=== PATIENT | male | born 1970 | race Caucasian/White ===

== ENCOUNTER 2017-11-17 02:51 | Inpatient (IN) | payer MEDICAID, OTHER ==
[2017-11-17 02:59] VITALS: BMI 21.9
[2017-11-17] MEDS ORDERED: Vancomycin 1gm in NS 250ml 1 GM/250 ML BAG IVPB STA (03:10)
[2017-11-17] MEDS ORDERED: Piperacillin/Tazobact 3.375 gm 100 ML IV STA (03:10)
[2017-11-17] MEDS ORDERED: Sodium Chloride 0.9% 1,000 ML IV STA ×2 (03:11→06:17)
--- NOTE | 2017-11-17 03:27 | ED PDOC ---
Arrival/HPI - General Chief Complaint: Finger,Hand,&Wrist Time Seen by Provider: 11/17/17 02:53 Historian: Patient - History of Present Illness Narrative History of Present Illness (Text): 11/17/17 03:21 A 47 year old male, whose past medical history includes IV drug abuse (heroin), presents to the emergency department with a complaint of swelling and erythema to the right hand extending up towards his forearm. The patient notes that he has been experiencing these symptoms for the past 2 days. The patient denies fevers, chills, headache, dizziness, sore throat, cough, chest pain, shortness of breath, dyspnea on exertion, abdominal pain, nausea, vomiting, diarrhea, neck /back pain, urinary/bowel changes or any other complaint. Time/Duration: Prior to Arrival Symptom Onset: Sudden Symptom Course: Unchanged Activities at Onset: Rest, Light Context: Home Past Medical History - Provider Review Nursing Documentation Reviewed: Yes - Hematological/Oncological Hx Blood Disorders: Yes Hx Hepatitis C: Yes - Psychiatric Hx Substance Use: Yes - Anesthesia Hx Anesthesia: No Family/Social History - Physician Review Nursing Documentation Reviewed: Yes Family/Social History: No Known Family HX Smoking Status: Current Some Days Smoker Hx Alcohol Use: Yes Frequency of alcohol use: Daily Hx Substance Use: Yes Substance used: IV heroin Allergies/Home Meds Allergies/Adverse Reactions: Allergies No Known Allergies Allergy (Unverified 11/17/17 03:09) Home Medications: Home Meds Medication Instructions Recorded Confirmed No Known Home Med 11/17/17 11/17/17 Review of Systems - Physician Review All systems were reviewed & negative as marked: Yes - Review of Systems Constitutional: absent: Fevers Respiratory: absent: SOB, Cough Cardiovascular: absent: Chest Pain, GAINES Gastrointestinal: absent: Abdominal Pain, Stool Changes, Diarrhea, Nausea, Vomiting Genitourinary Male: absent: Urinary Output Changes Musculoskeletal: absent: Back Pain, Neck Pain Skin: Other (erythema and swelling to right hand extending towards forearm) Neurological: absent: Headache, Dizziness Physical Exam Vital Signs Reviewed: Yes Vital Signs Temp Pulse Resp BP Pulse Ox 11/17/17 06:30 99 11/17/17 06:01 90 18 114/60 99 11/17/17 03:06 98.9 F 91 H 18 113/64 97 Temperature: Afebrile Blood Pressure: Normal Pulse: Tachycardic Respiratory Rate: Normal Appearance: Positive for: Well-Appearing, Non-Toxic, Comfortable Pain Distress: None Mental Status: Positive for: Alert and Oriented X 3 - Systems Exam Head: Present: Atraumatic, Normocephalic Pupils: Present: PERRL Extroacular Muscles: Present: EOMI Conjunctiva: Present: Normal Mouth: Present: Moist Mucous Membranes Neck: Present: Normal Range of Motion Respiratory/Chest: Present: Clear to Auscultation, Good Air Exchange. No: Respiratory Distress, Accessory Muscle Use Cardiovascular: Present: Regular Rate and Rhythm, Normal S1, S2. No: Murmurs Abdomen: No: Tenderness, Distention, Peritoneal Signs Back: Present: Normal Inspection Upper Extremity: Present: Edema, Normal ROM, NORMAL PULSES, Neurovascularly Intact, Other (Swelling and erythema to right hand with some erythema extending up forearm.). No: Cyanosis Lower Extremity: Present: Normal Inspection. No: Edema Neurological: Present: GCS=15, CN II-XII Intact, Speech Normal, Motor Func Grossly Intact, Normal Sensory Function Skin: Present: Warm, Dry. No: Rashes Psychiatric: Present: Alert, Oriented x 3, Normal Insight, Normal Concentration Medical Decision Making ED Course and Treatment: 11/17/17 03:30 Impression: A 47 year old male presents to the emergency department with complaint of right hand swelling and erythema extending to the forearm. Plan: -- Labs -- Blood Culture -- Toradol, Vancomycin, Zosyn, IV Fluids -- Reassess and disposition Prior Visits: Notes and results from previous visits were reviewed. Progress Notes: 11/17/17 05:10: Case discussed with bilingual medical assistant and Dr. Diaz who accepts patient to the hospitalist's service for further treatment of cellulitis. - Lab Interpretations Lab Results: 11/17/17 03:20 11/17/17 04:20 Lab Results 11/17/17 04:20: Sodium 139, Potassium 3.1 L, Chloride 101, Carbon Dioxide 28, Anion Gap 13, BUN 11, Creatinine 0.5 L, Est GFR ( Amer) > 60, Est GFR ( Non-Af Amer) > 60, Random Glucose 110, Calcium 8.7, Total Bilirubin 0.3, AST 22 , ALT 23, Alkaline Phosphatase 112, Total Protein 7.3, Albumin 3.1, Globulin 4.2 , Albumin/Globulin Ratio 0.7 L 11/17/17 03:20: WBC 22.9 H, RBC 4.27, Hgb 9.8 L, Hct 30.1 L, MCV 70.5 L, MCH 23.0 L, MCHC 32.6, RDW 16.9 H, Plt Count 445, MPV 9.5 I have reviewed the lab results: Yes - Medication Orders Current Medication Orders: Acetaminophen (Tylenol 325mg Tab) 325 mg PO Q4 PRN PRN Reason: Fever >100.4 F Clonidine HCl (Catapres) 0.1 mg PO Q8H PRN PRN Reason: Withdrawal symptoms Cyclobenzaprine HCl (Flexeril) 5 mg PO TID [facility] Last Admin: 11/17/17 19:09 Dose: 5 mg Enoxaparin Sodium (Lovenox) 40 mg SC DAILY KIMBELREE PRN Reason: Protocol Last Admin: 11/17/17 10:16 Dose: 40 mg Subcutaneous Administrations Document 11/17/17 10:16 LMN (Rec: 11/17/17 10:16 LMN [id number]) Injection Site MAR Injection Site Left Arm Charges for Administration # of Subcutaneous Administrations 1 Ferrous Sulfate (Feosol) 324 mg PO BID [facility] Last Admin: 11/17/17 19:09 Dose: 324 mg Piperacillin Sod/Tazobactam Sod (Zosyn 3.375 In Ns 100ml) 100 mls @ 200 mls/hr IV Q8 KIMBERLEE PRN Reason: Protocol Stop: 11/24/17 14:01 Last Admin: 11/17/17 14:53 Dose: 200 mls/hr eMAR Start Stop Document 11/17/17 14:53 LMN (Rec: 11/17/17 14:53 LMN [id number]) Intravenous Solution Start Date 11/17/17 Start Time 14:53 Vancomycin HCl (Vancomycin 1gm) 1 gm in 250 mls @ 133.333 mls/hr IVPB Q12 KIMBERLEE PRN Reason: Protocol Last Admin: 11/17/17 10:16 Dose: 133.333 mls/hr eMAR Start Stop Document 11/17/17 10:16 LMN (Rec: 11/17/17 10:16 LMN [id number]) Intravenous Solution Start Date 11/17/17 Start Time 10:16 Ketorolac Tromethamine (Toradol) 15 mg IVP Q6H PRN PRN Reason: Pain, moderate (4-7) Last Admin: 11/17/17 19:11 Dose: 15 mg MAR Pain Assessment Document 11/17/17 19:11 LMN (Rec: 11/17/17 19:11 LMN [place] [id number]) Pain Reassessment Is this a pain reassessment? No Presence of Pain Presence of Pain Yes Pain Scale Used Pain Scale Used Numeric Location Pain Location Body Site Back IVP Administration Document 11/17/17 19:11 LMN (Rec: 11/17/17 19:11 LMN [place] [id number]) Charges for Administration # of IVP Administrations 1 Re-Assess: MAR Pain Assessment Document 11/17/17 20:11 MAD (Rec: 11/17/17 20:23 MAD [id number] Pain Reassessment Is this a pain reassessment? Yes Presence of Pain Presence of Pain Yes Ketorolac Tromethamine (Toradol) 30 mg IVP Q6H PRN PRN Reason: Pain, severe (8-10) Last Admin: 11/17/17 15:17 Dose: 30 mg MAR Pain Assessment Document 11/17/17 15:17 LMN (Rec: 11/17/17 15:17 LMN [place] [id number]) Pain Reassessment Is this a pain reassessment? No Presence of Pain Presence of Pain Yes Pain Scale Used Pain Scale Used Numeric IVP Administration Document 11/17/17 15:17 LMN (Rec: 11/17/17 15:17 LMN [place] [id number]) Charges for Administration # of IVP Administrations 1 Lidocaine (Lidoderm) 1 ea TD DAILY KIMBERLEE Last Admin: 11/17/17 10:15 Dose: 1 ea MAR Transdermal Patch Site Document 11/17/17 10:15 LMN (Rec: 11/17/17 10:15 LMN [place] [id number]) Transdermal Patch Site Transdermal Patch Site Left Thigh Lorazepam (Ativan) 1 mg IVP ONCE PRN; Protocol PRN Reason: pls give 30mins before MRI Tramadol HCl (Ultram) 50 mg PO ONCE PRN PRN Reason: pls give 30mins before MRI Discontinued Medications Vancomycin HCl (Vancomycin 1gm) 1 gm in 250 mls @ 133.333 mls/hr IVPB STAT STA PRN Reason: Protocol Stop: 11/17/17 05:02 Last Admin: 11/17/17 04:49 Dose: 133.333 mls/hr eMAR Start Stop Document 11/17/17 04:49 SS (Rec: 11/17/17 04:49 SS [id number]) Intravenous Solution Start Date 11/17/17 Start Time 04:49 Piperacillin Sod/Tazobactam Sod (Zosyn 3.375 In Ns 100ml) 100 mls @ 200 mls/hr IV STAT STA PRN Reason: Protocol Stop: 11/17/17 03:39 Last Admin: 11/17/17 03:30 Dose: 200 mls/hr eMAR Start Stop Document 11/17/17 03:30 SS (Rec: 11/17/17 03:30 SS [id number]) Intravenous Solution Start Date 11/17/17 Start Time 03:30 End Date 11/17/17 End time 04:00 Total Infusion Time 30 Sodium Chloride (Sodium Chloride 0.9%) 1,000 mls @ 999 mls/hr IV .Q1H1M STA Stop: 11/17/17 04:11 Last Admin: 11/17/17 03:30 Dose: 999 mls/hr eMAR Start Stop Document 11/17/17 03:30 SS (Rec: 11/17/17 03:30 SS [id number]) Intravenous Solution Start Date 11/17/17 Start Time 03:30 End Date 11/17/17 End time 04:30 Total Infusion Time 60 Vancomycin HCl (Vancomycin 1gm) 1 gm in 250 mls @ 133.333 mls/hr IVPB DAILY KIMBERLEE PRN Reason: Protocol Ketorolac Tromethamine (Toradol) 30 mg IVP ONCE ONE Stop: 11/17/17 03:15 Last Admin: 11/17/17 03:30 Dose: 30 mg MAR Pain Assessment Document 11/17/17 03:30 SS (Rec: 11/17/17 03:30 SS [id number]) Pain Reassessment Is this a pain reassessment? No Presence of Pain Presence of Pain Yes Location Left, Right or Bilateral Right Pain Location Body Site Hand IVP Administration Document 11/17/17 03:30 SS (Rec: 11/17/17 03:30 SS [id number]) Charges for Administration # of IVP Administrations 1 Lorazepam (Ativan) 1 mg PO ONCE ONE PRN Reason: Protocol Stop: 11/17/17 14:34 Last Admin: 11/17/17 14:53 Dose: 1 mg Behavioural Document 11/17/17 14:53 LMN (Rec: 11/17/17 14:53 LMN [id number]) Maintenance Maintenance Dose No Nonmedicinal Nonmedicinal Interventions Redirect Therapeutic Communication Activity Give food/fluids Behavior Behavior for Medication: Anxiety Morphine Sulfate (Morphine) 4 mg IVP STAT STA Stop: 11/17/17 03:41 Last Admin: 11/17/17 04:27 Dose: 4 mg MAR Pain Assessment Document 11/17/17 04:27 SS (Rec: 11/17/17 04:27 SS [id number]) Pain Reassessment Is this a pain reassessment? Yes Sleep Is patient sleeping during reassessment? No Presence of Pain Presence of Pain Yes Pain Scale Used Pain Scale Used Numeric IVP Administration Document 11/17/17 04:27 SS (Rec: 11/17/17 04:27 SS [id number]) Charges for Administration # of IVP Administrations 1 Pneumococcal Polyvalent Vaccine (Pneumovax 23 Vaccine) 0.5 ml IM .ONCE ONE Stop: 11/17/17 08:22 Potassium Chloride (K-Dur 20 Meq Er Tab) 40 meq PO STAT STA Stop: 11/17/17 05:00 Last Admin: 11/17/17 05:18 Dose: 40 meq Potassium Chloride (K-Dur 20 Meq Er Tab) 40 meq PO STAT STA Stop: 11/17/17 06:27 Last Admin: 11/17/17 08:14 Dose: 40 meq - Scribe Statement The provider has reviewed the documentation as recorded by the Juancarlos Salazar Provider Scribe Attestation: All medical record entries made by the Scribmerle were at my direction and personally dictated by me. I have reviewed the chart and agree that the record accurately reflects my personal performance of the history, physical exam, medical decision making, and the department course for this patient. I have also personally directed, reviewed, and agree with the discharge instructions and disposition. Disposition/Present on Arrival - Present on Arrival Any Indicators Present on Arrival: No History of DVT/PE: No History of Uncontrolled Diabetes: No Urinary Catheter: No History of Decub. Ulcer: No History Surgical Site Infection Following: None - Disposition Have Diagnosis and Disposition been Completed?: Yes Diagnosis: Cellulitis of hand Disposition: HOSPITALIZED Disposition Time: 05:09 Patient Problems: Current Active Problems Problem Status Onset Cellulitis of hand Acute Condition: STABLE
[2017-11-17] MEDS ORDERED: Morphine 4 mg/ml ISec IVP STA (03:40)
[2017-11-17 04:46] LABS: ALB/GLOB RATIO 0.7 (1.1-1.8); ALBUMIN 3.1 g/dL (3.0-4.8); ALT/SGPT 23 U/L (7-56); AST/SGOT 22 U/L (17-59); BLOOD UREA NITROGEN 11 mg/dL (7-21); CALCIUM 8.7 mg/dL (8.4-10.5); GFR NON-AFRICAN AMERICAN > 60
[2017-11-17] MEDS ORDERED: Potassium Chloride 20 mEq ER Tab PO STA ×2 (04:59→06:26)
[2017-11-17 05:03] LABS: HEMOGLOBIN 9.8 g/dL (14.0-18.0); MEAN CELL VOLUME 70.5 fl (80.0-105.0); MEAN CORPUSCULAR HGB CONC 32.6 g/dl (31.0-37.0); MEAN PLATELET VOLUME 9.5 fl (7.0-11.0); RBC 4.27 10^6/uL (3.5-6.1); RED CELL DISTRIBUTION WIDTH 16.9 % (11.5-14.5); WHITE BLOOD COUNT 22.9 10^3/ul (4.5-11.0)
--- NOTE | 2017-11-17 05:41 | CP.PCM.HP ---
<Avelino Khan - Last Filed: 11/17/17 06:45> History of Present Illness - History of Present Illness History of Present Illness: Avelino Khan, PGY-1, Internal Medicine History and Physical for Dr. Granados CC: right wrist pain 47 year old with with past medical history of hyperlipidemia and hepatitis C presents with 2 day history of right wrist pain, swelling, redness, and warmth. Patient reports he was sleeping when the throbbing pain started. He reports the pain to be constant and nonradiating. No exacerbating or remitting factors. Patient also reports sharp, stabbing lumbar pain that radiates down his left leg with numbness and tingling. Patient reports no fever, chills, chest pain, heart palpitations, shortness of breath, nausea, vomiting, constipation, diarrhea, dysuria, and hematuria. 12-point ROS was negative except for what was listed above. PMH: as stated above PSH: carpal tunnel Allergies: NKDA FMHx: does not know his parents SHx: smokes 1 ppd for 20 years, 24 cans of beer a day, IV heroin use Denies having a PMD, Pharmacy, and Insurance. Present on Admission - Present on Admission Any Indicators Present on Admission: No History of DVT/PE: No History of Uncontrolled Diabetes: No Review of Systems - Constitutional Constitutional: absent: Anorexia, Chills, Fatigue, Fever - EENT Eyes: absent: Blurred Vision Ears: absent: Decreased Hearing - Cardiovascular Cardiovascular: absent: Chest Pain, Dyspnea on Exertion - Respiratory Respiratory: absent: Cough, Dyspnea - Gastrointestinal Gastrointestinal: absent: Abdominal Pain, Nausea, Vomiting - Genitourinary Genitourinary: absent: Dysuria, Hematuria - Musculoskeletal Musculoskeletal: absent: Abnormal Gait - Neurological Neurological: Abnormal Gait, Numbness, Tingling - Psychiatric Psychiatric: absent: Anxiety, Depression Past Patient History - Past Social History Smoking Status: Current Some Days Smoker - HEMATOLOGICAL/ONCOLOGICAL Hx Blood Disorders: Yes Hx Hepatitis C: Yes - PSYCHIATRIC Hx Substance Use: Yes - SURGICAL HISTORY Hx Surgeries: No - ANESTHESIA Hx Anesthesia: No Meds Allergies/Adverse Reactions: Allergies Allergy/AdvReac Type Severity Reaction Status Date / Time No Known Allergies Allergy Unverified 11/17/17 03:09 Physical Exam - Head Exam Head Exam: ATRAUMATIC, NORMOCEPHALIC - Eye Exam Eye Exam: EOMI, PERRL - ENT Exam ENT Exam: Mucous Membranes Moist - Respiratory Exam Respiratory Exam: Clear to Auscultation Bilateral, NORMAL BREATHING PATTERN - Cardiovascular Exam Cardiovascular Exam: REGULAR RHYTHM, RRR - GI/Abdominal Exam GI & Abdominal Exam: Normal Bowel Sounds, Soft - Extremities Exam Extremities exam: Positive for: joint swelling (right wrist swollen, minimally red, warm, painful to touch), pedal edema (minimal edema of left leg), tenderness, pedal pulses present Additional comments: Difficult to evaluate MSK due to pain and swelling Multiple needle track on bilateral upper extremities. - Back Exam Back exam: vertebral tenderness - Neurological Exam Neurological exam: Alert, CN II-XII Intact, Oriented x3 - Psychiatric Exam Psychiatric exam: Normal Affect, Normal Mood - Skin Skin Exam: Dry, Intact, Normal Color Results - Vital Signs Recent Vital Signs: Last Vital Signs Temp 98.9 F 11/17/17 03:06 Pulse 91 H 11/17/17 03:06 Resp 18 11/17/17 03:06 BP 113/64 11/17/17 03:06 Pulse Ox 97 11/17/17 03:06 - Labs Result Diagrams: 11/17/17 03:20 11/17/17 04:20 Assessment & Plan - Assessment and Plan (Free Text) Assessment: 47 year old with with past medical history of hyperlipidemia and hepatitis C presents with 2 day history of right wrist pain, swelling, redness, and warmth. Patient will be admitted for right wrist pain 2/2 to fracture vs. cellulitis. Plan: Right wrist pain 2/2 to fracture vs. cellulitis vs. osteomyelitis -Patient with right wrist pain. Minimal redness. Swelling, warmth appreciated. -Patient afebrile. -SIRS criteria fulfilled: WBC: 22.9. Pulse: 91, RR: 18, Temp: 98.9 -Right wrist X ray ordered to evaluate for fracture. -Blood culture, UA, urine culture, CRP, ESR -Vancomycin 1 gm daily, zosyn 3.375 Q8 -Morphine 4 mg Q4PRN for pain -Regular diet -Dr. Vazquez, ID, consulted for recommendations. -Dr. Castro, Orthopedic surgery, consulted for recommendations. Lumbar tenderness 2/2 to osteomyelitis vs. spondylothesis vs. spondylolysis vs. MSK -Spinal lumbar MRI for ruling out osteomyelitis -Blood culture, UA, urine culture, CRP, ESR -Lidocaine patch for pain -Flexeril -Morphine 4 mg Q4PRN for pain -Dr. Vazquez, ID, consulted for recommendations. -Dr. Castro, Orthopedic surgery, consulted for recommendations. Leukocytosis 2/2 to infection vs. stress response -WBC: 22.9 -Continue to monitor. Microcytic Anemia -Hgb: 9.8 -Iron, TIBC, Ferritin, electrophoresis ordered -Follow up results to decide management Hypokalemia -K: 3.1 -Mg and Phos ordered. -Already given 40 mg of KDUR. Will give 40 mg more of KDUR. -Continue to monitor. DVT prophylaxis: lovenox 40 mg Patient plan discussed with Dr. Granados. - Date & Time Date: 11/17/17 Time: 06:02 <Sandra Granados - Last Filed: 11/17/17 18:55> Results - Vital Signs Recent Vital Signs: Last Vital Signs Temp 100.1 F H 11/17/17 14:00 Pulse 86 11/17/17 14:00 Resp 18 11/17/17 14:00 BP 130/81 11/17/17 14:00 Pulse Ox 97 11/17/17 14:00 - Labs Result Diagrams: 11/17/17 08:10 11/17/17 04:20 Labs: Laboratory Results - last 24 hr 11/17/17 11/17/17 11/17/17 08:10 08:10 08:10 WBC 17.8 H D RBC 4.36 Hgb 10.1 L Hct 30.8 L MCV 70.6 L MCH 23.2 L MCHC 32.8 RDW 16.7 H Plt Count 441 MPV 8.8 Gran % 83.7 H Lymph % (Auto) 8.5 L [place] % (Auto) 6.8 H Eos % (Auto) 0.9 L Baso % (Auto) 0.1 Gran # 14.93 H Lymph # (Auto) 1.5 [place] # (Auto) 1.2 H Eos # (Auto) 0.2 Baso # (Auto) 0.02 ESR 54 H Phosphorus 3.1 Magnesium 1.9 Iron 20 L TIBC 244 L % Saturation 8 L Ferritin 181.0 C-Reactive Protein 195.00 H Urine Opiates Screen Urine Methadone Screen Ur Barbiturates Screen Ur Phencyclidine Scrn Ur Amphetamines Screen U Benzodiazepines Scrn U Oth Cocaine Metabols U Cannabinoids Screen 11/17/17 08:30 WBC RBC Hgb Hct MCV MCH MCHC RDW Plt Count MPV Gran % Lymph % (Auto) Creek % (Auto) Eos % (Auto) Baso % (Auto) Gran # Lymph # (Auto) Creek # (Auto) Eos # (Auto) Baso # (Auto) ESR Phosphorus Magnesium Iron TIBC % Saturation Ferritin C-Reactive Protein Urine Opiates Screen Positive H Urine Methadone Screen Negative Ur Barbiturates Screen Negative Ur Phencyclidine Scrn Negative Ur Amphetamines Screen Negative U Benzodiazepines Scrn Negative U Oth Cocaine Metabols Positive H U Cannabinoids Screen Negative Attending/Attestation - Attestation I have personally seen and examined this patient.: Yes I have fully participated in the care of the patient.: Yes I have reviewed all pertinent clinical information: Yes
[2017-11-17] MEDS ORDERED: Piperacillin/Tazobact 3.375 gm Inj IVPB SCH (06:00)
[2017-11-17] MEDS ORDERED: Morphine 4 mg/ml ISec IVP PRN (06:12)
--- NOTE | 2017-11-17 07:58 | RAD ---
Date of service: 11/17/2017 PROCEDURE: Right Wrist Radiographs. HISTORY: redness, swelling of wrist COMPARISON: None. FINDINGS: BONES: The navicular bone is not identified suggesting prior operative resection on which is favored over destruction/resorption. There is advanced joint space loss and cortical sclerosis at the radiolunate articulation including limited subchondral cyst formation. Far lesser minimal degenerative changes seen at the carpal metacarpal articulations diffusely. No subluxation or dislocation. Moderate dorsal wrist and hand soft tissue edema is suggested without emphysematous change appreciable. A tiny radiodensity is seen only in the oblique view in the mid dorsal wrist soft tissues potentially reflecting a tiny chip or avulsion fracture though this may represent heterotopic calcification. A retained radiodense foreign body is not excluded. JOINTS: As above. SOFT TISSUES: As above. OTHER FINDINGS: None. IMPRESSION: Moderate dorsal wrist and hand soft tissue edema without emphysematous changes associated. Solitary a potential heterotopic calcification or even chip or avulsion fracture is seen at the mid wrist dorsal soft tissues in only one view. Tiny retained radiodense foreign body is not excluded. 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
[2017-11-17] MEDS ORDERED: Pneumococcal 23-Valent Vaccine IM ONE (08:21)
[2017-11-17 08:30] LABS: BASO # 0.02 K/mm3 (0.0-2.0); BASO % 0.1 % (0.0-3.0); EOS # 0.2 (0.0-0.7); EOS % 0.9 % (1.5-5.0); GRAN # 14.93 (1.4-6.5); GRAN % 83.7 % (50.0-68.0); HEMOGLOBIN 10.1 g/dL (14.0-18.0); LYMPH # 1.5 (1.2-3.4); LYMPH % 8.5 % (22.0-35.0); MEAN CELL VOLUME 70.6 fl (80.0-105.0); MEAN CORPUSCULAR HEMOGLOBIN 23.2 pg (25.0-35.0); MEAN CORPUSCULAR HGB CONC 32.8 g/dl (31.0-37.0); MEAN PLATELET VOLUME 8.8 fl (7.0-11.0); MONO # 1.2 (0.1-0.6); MONO % 6.8 % (1.0-6.0); RBC 4.36 10^6/uL (3.5-6.1); RED CELL DISTRIBUTION WIDTH 16.7 % (11.5-14.5); WHITE BLOOD COUNT 17.8 10^3/ul (4.5-11.0)
[2017-11-17 08:37] LABS: IRON 20 ug/dL (45-180)
[2017-11-17 08:46] LABS: % IRON SATURATION 8 % (20-55); TOTAL IRON BINDING CAPACITY 244 ug/dL (261-462)
[2017-11-17 08:55] LABS: BARBITURATES, UR NEGATIVE (NEGATIVE); PHENCYCLIDINE, UR NEGATIVE (NEGATIVE)
[2017-11-17 09:24] LABS: BENZODIAZEPINES, UR NEGATIVE (NEGATIVE); OPIATES, UR POSITIVE (NEGATIVE)
[2017-11-17] MEDS ORDERED: Vancomycin 1gm in NS 250ml 1 GM/250 ML BAG IVPB SCH (10:00)
[2017-11-17] MEDS ORDERED: Vancomycin 1 g Inj IVPB SCH (10:00)
[2017-11-17] MEDS: Lidocaine 5% Patch TD SCH (10:15)
[2017-11-17] MEDS: Vancomycin 1gm in NS 250ml 1 GM/250 ML BAG IVPB SCH ×2 (10:16→22:17)
[2017-11-17] MEDS: Enoxaparin 40 mg Syringe SC SCH (10:16)
--- NOTE | 2017-11-17 12:36 | CP.PCM.CON ---
History of Present Illness - History of Present Illness History of Present Illness: 47 year old male with PMH of dyslipidemia, hepatitis C infection, history of IV drug use, chronic alcohol abuse came in to [facility] complaining of 2 days of right hand and wrist swelling, pain and limited range of motion. As per patient, he woke up with the swollen hand ad wrist. He does not recall banging his hand or wrist onto a surface, does not recall trauma, denies injecting anything into the said area, denies insect or animal contacts, denies fever or chills, no nausea or vomiting, no chest pain, no SOB, no headache or dizziness, no cough or rhinorrhea, no sore throat, no abdominal pain, no diarrhea, no dysuria, no hematuria, no penile discharge. He admits to have had a lot of beer the night before his hand got swollen. He is noted to have leukocytosis on CBC and Infectious Diseases consult is requested to further evaluate and manage. Review of Systems - Review of Systems All systems: reviewed and no additional remarkable complaints except (as per HPI ) Past Patient History - Past Social History Smoking Status: Current Some Days Smoker - HEMATOLOGICAL/ONCOLOGICAL Hx Blood Disorders: Yes Hx Hepatitis C: Yes - PSYCHIATRIC Hx Substance Use: Yes - SURGICAL HISTORY Hx Surgeries: No - ANESTHESIA Hx Anesthesia: No Meds Allergies/Adverse Reactions: Allergies Allergy/AdvReac Type Severity Reaction Status Date / Time No Known Allergies Allergy Unverified 11/17/17 03:09 - Medications Medications: Current Medications Cyclobenzaprine HCl (Flexeril) 5 mg PO TID KIMBERLEE Enoxaparin Sodium (Lovenox) 40 mg SC DAILY KIMBERLEE PRN Reason: Protocol Vancomycin HCl (Vancomycin 1gm) 1 gm in 250 mls @ 133.333 mls/hr IVPB DAILY KIMBERLEE PRN Reason: Protocol Piperacillin Sod/Tazobactam Sod (Zosyn 3.375 In Ns 100ml) 100 mls @ 200 mls/hr IV Q8 KIMBERLEE PRN Reason: Protocol Stop: 11/17/17 22:29 Sodium Chloride (Sodium Chloride 0.9%) 1,000 mls @ 75 mls/hr IV .[id number] STA Stop: 11/17/17 19:36 Lidocaine (Lidoderm) 1 ea TD DAILY KIMBERLEE Morphine Sulfate (Morphine) 4 mg IVP Q4 PRN PRN Reason: Pain, moderate (4-7) Pantoprazole Sodium (Protonix Inj) 40 mg IVP DAILY KIMBERLEE Physical Exam - Constitutional Appears: Non-toxic, No Acute Distress, Other (in pain) - Head Exam Head Exam: NORMAL INSPECTION - ENT Exam ENT Exam: Mucous Membranes Moist - Neck Exam Neck exam: Negative for: Meningismus - Respiratory Exam Respiratory Exam: absent: Rales, Rhonchi - Cardiovascular Exam Cardiovascular Exam: +S1, +S2 - GI/Abdominal Exam GI & Abdominal Exam: Soft, Tenderness - Extremities Exam Additional comments: right wrist and dorsum of hand with erythema and swelling with tenderness, no fluctuance Results - Vital Signs Recent Vital Signs: Last Vital Signs Temp 98.9 F 11/17/17 03:06 Pulse 91 H 11/17/17 03:06 Resp 18 11/17/17 03:06 BP 113/64 11/17/17 03:06 Pulse Ox 97 11/17/17 03:06 - Labs Result Diagrams: 11/17/17 08:10 11/17/17 04:20 Assessment & Plan - Assessment and Plan (Free Text) Plan: Assessment systemic inflammatory response syndrome, consider sepsis due to right hand and wrist skin and skin structure infection, R/O septic arthritis of wrist, R/O gouty arthritis dyslipidemia hepatitis C infection history of IV drug use chronic alcohol abuse Plan Started Vancomycin and Zosyn pending blood cx; reviewed xray of right hand and wrist and will get MRI Ortho has also been consulted and we are awaiting evaluation and recommendations will monitor clinically will get HIV test Hepatitis C infection should be addressed as an outpatient
[2017-11-17] MEDS: Piperacillin/Tazobact 3.375 gm 100 ML IV SCH ×2 (14:53→21:19)
[2017-11-17 21:51] LABS: URINE APPEARANCE CLEAR (CLEAR); URINE BILIRUBIN NEGATIVE (NEGATIVE); URINE BLOOD NEGATIVE (NEGATIVE); URINE COLOR YELLOW (YELLOW); URINE GLUCOSE (UA) NEGATIVE (NEGATIVE); URINE LEUKOCYTE ESTERASE NEGATIVE Leu/uL (NEGATIVE); URINE PROTEIN 30 mg/dL (<30 mg/dL)
[2017-11-17 22:09] LABS: URINE RBC 0 - 2 /hpf (0-2)
[2017-11-17 22:10] LABS: URINE BACTERIA MOD (NEG); URINE EPITHELIAL CELLS 0 - 2 /hpf (0-5)
--- NOTE | 2017-11-17 23:31 | CARD ---
APPROVED REPORT Date of service: 11/17/2017 EKG Measurement Heart [id number] <Conclusion> Normal sinus rhythm Normal ECG
[2017-11-18 02:34] LABS: MCH 23.4 pg (27.0-33.0); MCV 74.4 fL (80.0-100.0)
[2017-11-18] MEDS: Piperacillin/Tazobact 3.375 gm 100 ML IV SCH ×4 (05:45→23:15)
[2017-11-18 06:45] LABS: BASO # 0.01 K/mm3 (0.0-2.0); BASO % 0.1 % (0.0-3.0); EOS % 0.1 % (1.5-5.0); GRAN # 14.85 (1.4-6.5); GRAN % 83.1 % (50.0-68.0); HEMOGLOBIN 9.7 g/dL (14.0-18.0); LYMPH # 1.8 (1.2-3.4); LYMPH % 9.8 % (22.0-35.0); MEAN CELL VOLUME 69.8 fl (80.0-105.0); MEAN CORPUSCULAR HEMOGLOBIN 22.9 pg (25.0-35.0); MEAN CORPUSCULAR HGB CONC 32.8 g/dl (31.0-37.0); MEAN PLATELET VOLUME 8.9 fl (7.0-11.0); MONO # 1.2 (0.1-0.6); MONO % 6.9 % (1.0-6.0); RBC 4.24 10^6/uL (3.5-6.1); WHITE BLOOD COUNT 17.9 10^3/ul (4.5-11.0)
[2017-11-18 07:18] LABS: ALB/GLOB RATIO 0.7 (1.1-1.8); ALT/SGPT 19 U/L (7-56); AST/SGOT 23 U/L (17-59); BLOOD UREA NITROGEN 14 mg/dL (7-21); CALCIUM 8.6 mg/dL (8.4-10.5); GFR NON-AFRICAN AMERICAN > 60
[2017-11-18] MEDS: Enoxaparin 40 mg Syringe SC SCH (09:39)
[2017-11-18] MEDS: Lidocaine 5% Patch TD SCH (09:39)
[2017-11-18] MEDS: Vancomycin 1gm in NS 250ml 1 GM/250 ML BAG IVPB SCH ×2 (09:40→21:29)
--- NOTE | 2017-11-18 14:46 | CP.PCM.PN ---
<Sherif Knapp - Last Filed: 11/18/17 14:42> Subjective - Date & Time of Evaluation Date of Evaluation: 11/18/17 Time of Evaluation: 14:42 - Subjective Subjective: Sherif Knapp D.O PGY-1, Internal Medicine progress note for Dr. Pillai Patient was examined at bedside, no acute overnight events. Patient had a fever of 101.7 last night that resolved with tylenol. He also vomited small amount of brownish fluid last night as per nursing. Denies chest pain, shortness of breath , abdominal pain. Objective - Vital Signs/Intake and Output Vital Signs (last 24 hours): Temp Pulse Resp BP Pulse Ox 99.4 F 64 20 124/79 99 11/18/17 06:00 11/18/17 06:00 11/18/17 06:00 11/18/17 06:00 11/18/17 06:00 Intake and Output: 11/18/17 11/18/17 06:59 18:59 Intake Total 960 Output Total 0 Balance 960 - Medications Medications: Current Medications Acetaminophen (Tylenol 325mg Tab) 325 mg PO Q4 PRN PRN Reason: Fever >100.4 F Clonidine HCl (Catapres) 0.1 mg PO Q8H PRN PRN Reason: Withdrawal symptoms Cyclobenzaprine HCl (Flexeril) 5 mg PO TID [facility] Last Admin: 11/18/17 14:10 Dose: 5 mg Enoxaparin Sodium (Lovenox) 40 mg SC DAILY [facility] PRN Reason: Protocol Last Admin: 11/18/17 09:39 Dose: 40 mg Ferrous Sulfate (Feosol) 324 mg PO BID [facility] Last Admin: 11/18/17 09:39 Dose: 324 mg Vancomycin HCl (Vancomycin 1gm) 1 gm in 250 mls @ 133.333 mls/hr IVPB Q12 [facility] PRN Reason: Protocol Last Admin: 11/18/17 09:40 Dose: 133.333 mls/hr Piperacillin Sod/Tazobactam Sod (Zosyn 3.375 In Ns 100ml) 100 mls @ 200 mls/hr IV Q6 [facility] PRN Reason: Protocol Stop: 11/25/17 12:01 Last Admin: 11/18/17 12:07 Dose: 200 mls/hr Ketorolac Tromethamine (Toradol) 15 mg IVP Q6H PRN PRN Reason: Pain, moderate (4-7) Last Admin: 11/18/17 00:16 Dose: 15 mg Ketorolac Tromethamine (Toradol) 30 mg IVP Q6H PRN PRN Reason: Pain, severe (8-10) Last Admin: 11/18/17 14:10 Dose: 30 mg Lidocaine (Lidoderm) 1 ea TD DAILY [facility] Last Admin: 11/18/17 09:39 Dose: 1 ea Lorazepam (Ativan) 1 mg IVP ONCE PRN; Protocol PRN Reason: pls give 30mins before MRI Tramadol HCl (Ultram) 50 mg PO ONCE PRN PRN Reason: pls give 30mins before MRI - Labs Labs: 11/18/17 06:00 11/18/17 06:00 - Additional Findings Additional findings: - Head Exam Head Exam: ATRAUMATIC, NORMOCEPHALIC - Eye Exam Eye Exam: EOMI, PERRL - ENT Exam ENT Exam: Mucous Membranes Moist - Respiratory Exam Respiratory Exam: Clear to Auscultation Bilateral, NORMAL BREATHING PATTERN - Cardiovascular Exam Cardiovascular Exam: REGULAR RHYTHM, RRR - GI/Abdominal Exam GI & Abdominal Exam: Normal Bowel Sounds, Soft - Extremities Exam Extremities exam: Positive for: joint swelling (right wrist swollen, minimally red, warm, painful to touch), pedal edema (minimal edema of left leg), tenderness, pedal pulses present Additional comments: There is increased warmth and swelling in the right wrist. Multiple needle track on bilateral upper extremities. - Back Exam Back exam: vertebral tenderness - Neurological Exam Neurological exam: Alert, CN II-XII Intact, Oriented x3 - Psychiatric Exam Psychiatric exam: Normal Affect, Normal Mood - Skin Skin Exam: Dry, Intact, Normal Color Assessment and Plan - Assessment and Plan (Free Text) Assessment: This 47 year old male with PMH of Hep C, substance abuse, hyperlipidemia, and carpal tunnel who is admitted for right wrist pain with swelling. Plan: Right wrist pain - Need to r/o cellulitis vs. osteomyelitis - MRI w/o contrast of wrist - Pending, patient is refusing to get MRI done due to pain - Right wrist X ray showed moderate dorsal wrist and hand soft tissue edema without emphysematous changes associated. Potential heterotopic calcification or even chip or avulsion fracture is seen at the mid wrist dorsal soft tissues in only one view. - Blood culture - Gram positive cocci (Staph aureus and coag-neg staph) - HIV testing: pending - WBC: 17.9 - CRP: 195, ESR: 54 - UDS was positive for cocaine and opioids - Blood culture - Grew gram positive cocci in clusters (prelim report) - C/w Vancomycin 1 gm daily, Zosyn 3.375 Q8 - ID consulted, Dr. Deshpande - Orthopedic surgery consulted, Dr. Castro Lumbar tenderness - Need to r/o osteomyelitis vs. spondylolisthesis vs. spondylolysis vs. MSK - Lumbar spine MRI - Pending, patient is refusing to get MRI done due to pain - C/w Toradol 30mg IV Q6 PRN- severe pain - Lidocaine patch and Flexeril 5 mg tid Opioid withdrawal symtoms - Tylenol 325 mg q4 prn- fever - Clonidine 0.1mg PO Q8 PRN- hypertension - Fall, seizure precautions - CIWA protocol, last CIWA: 7 - Psychiatry consulted, Dr. Chaudhari Microcytic Anemia - Hgb: 9.7 - Iron studies showed iron was low (20), TIBC was low (244), and % saturation was low (8), ferritin was within normal limits - C/w Feosol 324 mg bid - Hemoglobin electrophoresis pending - Hemoglobinopathy results revealed Hct, Hgb, MCV, MCH, RDW decreased Hypokalemia, resolved -Mg and Phos were within normal limits -Continue to monitor. DVT prophylaxis: lovenox 40 mg Patient case reviewed with and plan approved by attending physician, Dr. Pillai <Adal Pillai - Last Filed: 11/18/17 16:39> Objective - Vital Signs/Intake and Output Vital Signs (last 24 hours): Temp Pulse Resp BP Pulse Ox 99.4 F 64 20 124/79 99 11/18/17 06:00 11/18/17 06:00 11/18/17 06:00 11/18/17 06:00 11/18/17 06:00 Intake and Output: 11/18/17 11/18/17 06:59 18:59 Intake Total 960 Output Total 0 Balance 960 - Medications Medications: Current Medications Acetaminophen (Tylenol 325mg Tab) 325 mg PO Q4 PRN PRN Reason: Fever >100.4 F Clonidine HCl (Catapres) 0.1 mg PO Q8H PRN PRN Reason: Withdrawal symptoms Cyclobenzaprine HCl (Flexeril) 5 mg PO TID [facility] Last Admin: 11/18/17 14:10 Dose: 5 mg Enoxaparin Sodium (Lovenox) 40 mg SC DAILY [facility] PRN Reason: Protocol Last Admin: 11/18/17 09:39 Dose: 40 mg Ferrous Sulfate (Feosol) 324 mg PO BID [facility] Last Admin: 11/18/17 09:39 Dose: 324 mg Vancomycin HCl (Vancomycin 1gm) 1 gm in 250 mls @ 133.333 mls/hr IVPB Q12 [facility] PRN Reason: Protocol Last Admin: 11/18/17 09:40 Dose: 133.333 mls/hr Piperacillin Sod/Tazobactam Sod (Zosyn 3.375 In Ns 100ml) 100 mls @ 200 mls/hr IV Q6 [facility] PRN Reason: Protocol Stop: 11/25/17 12:01 Last Admin: 11/18/17 12:07 Dose: 200 mls/hr Ketorolac Tromethamine (Toradol) 15 mg IVP Q6H PRN PRN Reason: Pain, moderate (4-7) Last Admin: 11/18/17 00:16 Dose: 15 mg Ketorolac Tromethamine (Toradol) 30 mg IVP Q6H PRN PRN Reason: Pain, severe (8-10) Last Admin: 11/18/17 14:10 Dose: 30 mg Lidocaine (Lidoderm) 1 ea TD DAILY [facility] Last Admin: 11/18/17 09:39 Dose: 1 ea Lorazepam (Ativan) 1 mg IVP ONCE PRN; Protocol PRN Reason: pls give 30mins before MRI Tramadol HCl (Ultram) 50 mg PO ONCE PRN PRN Reason: pls give 30mins before MRI - Labs Labs: 11/18/17 06:00 11/18/17 06:00 Attending/Attestation - Attestation I have personally seen and examined this patient.: Yes I have fully participated in the care of the patient.: Yes I have reviewed all pertinent clinical information, including history, physical exam and plan: Yes Notes (Text): 11/18/17 16:28 47 year old male with past medical history of hepatitis C, substance abuse, and IVDA who presented with complaint of right wrist pain and swelling and back pain. He was febrile overnight. ID evaluation was appreciated. Orthopedics evaluation is pending. ESR/CRP are elevated. He is on iv antibiotics and pending MRI of wrist and spine. Initially he refused but now is agreeable. He was counselled on risks of continued substance abuse. Urine drug screen was positive for cocaine and opioids. Monitor for withdrawal symptoms. Adal Pillai MD Hospitalist.
[2017-11-18] MEDS ORDERED: DAPTOmycin 500 mg Inj (Cubicin) IV ONE (16:45)
--- NOTE | 2017-11-18 16:49 | CP.PCM.PN ---
Subjective - Date & Time of Evaluation Date of Evaluation: 11/18/17 Time of Evaluation: 12:00 - Subjective Subjective: Still with pain in the right hand but a little less, still having fevers, no nausea, no diarrhea. Objective - Vital Signs/Intake and Output Vital Signs (last 24 hours): Temp Pulse Resp BP Pulse Ox 98.7 F 78 20 135/56 L 94 L 11/18/17 02:15 11/17/17 23:12 11/17/17 23:12 11/17/17 23:12 11/17/17 23:12 Intake and Output: 11/18/17 11/18/17 06:59 18:59 Intake Total 960 Output Total 0 Balance 960 - Medications Medications: Current Medications Acetaminophen (Tylenol 325mg Tab) 325 mg PO Q4 PRN PRN Reason: Fever >100.4 F Clonidine HCl (Catapres) 0.1 mg PO Q8H PRN PRN Reason: Withdrawal symptoms Cyclobenzaprine HCl (Flexeril) 5 mg PO TID [facility] Last Admin: 11/17/17 19:09 Dose: 5 mg Enoxaparin Sodium (Lovenox) 40 mg SC DAILY [facility] PRN Reason: Protocol Last Admin: 11/17/17 10:16 Dose: 40 mg Ferrous Sulfate (Feosol) 324 mg PO BID [facility] Last Admin: 11/17/17 19:09 Dose: 324 mg Vancomycin HCl (Vancomycin 1gm) 1 gm in 250 mls @ 133.333 mls/hr IVPB Q12 [facility] PRN Reason: Protocol Last Admin: 11/17/17 22:17 Dose: 133.333 mls/hr Piperacillin Sod/Tazobactam Sod (Zosyn 3.375 In Ns 100ml) 100 mls @ 200 mls/hr IV Q6 [facility] PRN Reason: Protocol Stop: 11/25/17 12:01 Ketorolac Tromethamine (Toradol) 15 mg IVP Q6H PRN PRN Reason: Pain, moderate (4-7) Last Admin: 11/18/17 00:16 Dose: 15 mg Ketorolac Tromethamine (Toradol) 30 mg IVP Q6H PRN PRN Reason: Pain, severe (8-10) Last Admin: 11/18/17 05:44 Dose: 30 mg Lidocaine (Lidoderm) 1 ea TD DAILY [facility] Last Admin: 11/17/17 10:15 Dose: 1 ea Lorazepam (Ativan) 1 mg IVP ONCE PRN; Protocol PRN Reason: pls give 30mins before MRI Tramadol HCl (Ultram) 50 mg PO ONCE PRN PRN Reason: pls give 30mins before MRI - Labs Labs: 11/18/17 06:00 - Constitutional Appears: Chronically Ill - Head Exam Head Exam: NORMAL INSPECTION - Neck Exam Neck Exam: absent: Meningismus - Respiratory Exam Respiratory Exam: Decreased Breath Sounds - Cardiovascular Exam Cardiovascular Exam: +S1, +S2 - GI/Abdominal Exam GI & Abdominal Exam: Soft. absent: Tenderness Assessment and Plan - Assessment and Plan (Free Text) Plan: Assessment sepsis due to Staph aureus bacteremia with right hand and wrist skin and skin structure infection, R/O septic arthritis of wrist, R/O endocarditis dyslipidemia hepatitis C infection history of IV drug use chronic alcohol abuse Plan continue Vancomycin and Zosyn day 2 pending sensitivities of the Staph aureus in the blood cx and will repeat blood cx; reviewed xray of right hand and wrist and we are awaiting MRI of the hand will repeat blood cx and will get 2D echo - will give a dose of IV Daptomycin Ortho has also been consulted and we are awaiting evaluation and recommendations will continue to monitor clinically will get HIV test Hepatitis C infection should be addressed as an outpatient
[2017-11-19] MEDS: Piperacillin/Tazobact 3.375 gm 100 ML IV SCH ×3 (06:25→17:51)
[2017-11-19 06:40] LABS: HEMOGLOBIN A 96.7 Percent (>96.0); HEMOGLOBIN A2 2.3 Percent (1.8-3.5)
[2017-11-19 06:45] LABS: BASO # 0.02 K/mm3 (0.0-2.0); BASO % 0.1 % (0.0-3.0); EOS % 0.1 % (1.5-5.0); GRAN # 15.47 (1.4-6.5); GRAN % 83.9 % (50.0-68.0); HEMOGLOBIN 9.8 g/dL (14.0-18.0); LYMPH # 1.7 (1.2-3.4); LYMPH % 9.4 % (22.0-35.0); MEAN CELL VOLUME 68.4 fl (80.0-105.0); MEAN CORPUSCULAR HGB CONC 33.6 g/dl (31.0-37.0); MEAN PLATELET VOLUME 8.6 fl (7.0-11.0); MONO # 1.2 (0.1-0.6); MONO % 6.5 % (1.0-6.0); RBC 4.27 10^6/uL (3.5-6.1); RED CELL DISTRIBUTION WIDTH 16.6 % (11.5-14.5); WHITE BLOOD COUNT 18.4 10^3/ul (4.5-11.0)
[2017-11-19 07:20] LABS: ALB/GLOB RATIO 0.7 (1.1-1.8); ALT/SGPT 23 U/L (7-56); AST/SGOT 44 U/L (17-59); BLOOD UREA NITROGEN 15 mg/dL (7-21); CALCIUM 8.5 mg/dL (8.4-10.5); GFR NON-AFRICAN AMERICAN > 60
[2017-11-19] MEDS ORDERED: Potassium Chloride 20 mEq ER Tab PO ONE (07:48)
[2017-11-19] MEDS: Vancomycin 1gm in NS 250ml 1 GM/250 ML BAG IVPB SCH ×2 (09:33→21:56)
[2017-11-19] MEDS: Lidocaine 5% Patch TD SCH (09:33)
[2017-11-19] MEDS: Enoxaparin 40 mg Syringe SC SCH (09:33)
--- NOTE | 2017-11-19 13:21 | CP.PCM.PN ---
<Sherif Knapp - Last Filed: 11/19/17 13:34> Subjective - Date & Time of Evaluation Date of Evaluation: 11/19/17 Time of Evaluation: 13:17 - Subjective Subjective: Sherif Knapp D.O PGY-1, Internal Medicine progress note for Dr. Pillai Patient was examined at bedside. Overnight, patient was hallucinating, anxious, confused, diaphoretic, had multiple bowel movements, and had one episode of non- bloody vomiting. Robert cecilia was called this morning due to patient trying to leave the hospital. Denies chest pain, shortness of breath, or abdominal pain. Objective - Vital Signs/Intake and Output Vital Signs (last 24 hours): Temp Pulse Resp BP Pulse Ox 99.1 F 75 20 129/82 96 11/18/17 22:58 11/19/17 08:21 11/18/17 22:58 11/19/17 08:21 11/18/17 22:58 Intake and Output: 11/19/17 11/19/17 06:59 18:59 Intake Total 960 Output Total 0 Balance 960 - Medications Medications: Current Medications Acetaminophen (Tylenol 325mg Tab) 325 mg PO Q4 PRN PRN Reason: Fever >100.4 F Clonidine HCl (Catapres) 0.1 mg PO Q8H PRN PRN Reason: Withdrawal symptoms Cyclobenzaprine HCl (Flexeril) 5 mg PO TID [facility] Last Admin: 11/19/17 13:04 Dose: 5 mg Enoxaparin Sodium (Lovenox) 40 mg SC DAILY [facility] PRN Reason: Protocol Last Admin: 11/19/17 09:33 Dose: 40 mg Ferrous Sulfate (Feosol) 324 mg PO BID [facility] Last Admin: 11/19/17 09:33 Dose: 324 mg Hydroxyzine HCl (Atarax) 25 mg PO Q8H PRN PRN Reason: Anxiety Vancomycin HCl (Vancomycin 1gm) 1 gm in 250 mls @ 133.333 mls/hr IVPB Q12 [facility] PRN Reason: Protocol Last Admin: 11/19/17 09:33 Dose: 133.333 mls/hr Piperacillin Sod/Tazobactam Sod (Zosyn 3.375 In Ns 100ml) 100 mls @ 200 mls/hr IV Q6 [facility] PRN Reason: Protocol Stop: 11/25/17 12:01 Last Admin: 11/19/17 13:04 Dose: 200 mls/hr Ketorolac Tromethamine (Toradol) 15 mg IVP Q6H PRN PRN Reason: Pain, moderate (4-7) Last Admin: 11/18/17 00:16 Dose: 15 mg Ketorolac Tromethamine (Toradol) 30 mg IVP Q6H PRN PRN Reason: Pain, severe (8-10) Last Admin: 11/18/17 20:41 Dose: 30 mg Lidocaine (Lidoderm) 1 ea TD DAILY [facility] Last Admin: 11/19/17 09:33 Dose: 1 ea Lorazepam (Ativan) 1 mg IVP Q6H [facility] PRN Reason: Protocol Last Admin: 11/19/17 13:07 Dose: 1 mg Lorazepam (Ativan) 1 mg IVP Q6H PRN; Protocol PRN Reason: Symptoms of alcohol withdrawl Methadone HCl (Methadone) 10 mg PO DAILY [facility] Last Admin: 11/19/17 09:35 Dose: Not Given Ondansetron HCl (Zofran Inj) 4 mg IVP Q6H PRN PRN Reason: Nausea/Vomiting Last Admin: 11/19/17 07:40 Dose: 4 mg Tramadol HCl (Ultram) 50 mg PO ONCE PRN PRN Reason: pls give 30mins before MRI - Labs Labs: 11/19/17 05:45 11/19/17 05:45 - Constitutional Appears: No Acute Distress, Agitated, Confused - Head Exam Head Exam: ATRAUMATIC, NORMAL INSPECTION - Eye Exam Eye Exam: Normal appearance - ENT Exam ENT Exam: Mucous Membranes Moist - Respiratory Exam Respiratory Exam: Clear to Ausculation Bilateral. absent: Rales, Rhonchi, Wheezes, Respiratory Distress - Cardiovascular Exam Cardiovascular Exam: REGULAR RHYTHM, +S1, +S2. absent: Gallop, Rubs, Murmur - GI/Abdominal Exam GI & Abdominal Exam: Soft, Normal Bowel Sounds. absent: Tenderness - Extremities Exam Extremities Exam: absent: Calf Tenderness, Pedal Edema Additional comments: There is still swelling in the right wrist. Right wrist is painful to touch. Multiple needle track on bilateral upper extremities. - Neurological Exam Neurological Exam: Altered, Awake. absent: Normal Gait, Oriented x3 - Psychiatric Exam Psychiatric exam: Anxious. absent: Normal Affect, Normal Mood - Skin Skin Exam: Dry, Intact, Normal Color, Warm Assessment and Plan - Assessment and Plan (Free Text) Assessment: This 47 year old male with PMH of Hep C, substance abuse, hyperlipidemia, and carpal tunnel who is admitted for right wrist pain with swelling and opioid withdrawal symptoms. Plan: Right wrist pain - Need to r/o cellulitis vs. osteomyelitis vs fracture vs septic arthritis - MRI w/o contrast of wrist - Pending, patient is refusing to get MRI done due to pain - Right wrist X ray showed moderate dorsal wrist and hand soft tissue edema without emphysematous changes associated. Potential heterotopic calcification or even chip or avulsion fracture is seen at the mid wrist dorsal soft tissues in only one view. - HIV testing: non-reactive - Patient afebrile - WBC: 18.4 from 17.9 - trending up - CRP: 195, ESR: 54 - UDS was positive for cocaine and opioids - C/w Vancomycin 1 gm daily, Zosyn 3.375 Q8 - Received 1 x dose of Daptomycin 380mg IV - ID consulted, Dr. Deshpande - Orthopedic surgery consulted, Dr. Castro Bacteremia - Blood culture - Grew S. aureus and gram negative rods - 2D echo ordered - C/w antibiotics Opioid withdrawal symtoms - Started Ativan 1mg Q6H and 1mg Ativan 1mg Q6 PRN - Started Methadone 20mg PO QD - Tylenol 325 mg Q4 PRN- fever - Clonidine 0.1mg PO Q8 PRN- hypertension - Zofran 4mg Q6H PRN - nausea - Fall, seizure precautions - CIWA protocol, last CIWA: 12 - Psychiatry consulted, Dr. Chaudhari Lumbar tenderness - Need to r/o osteomyelitis vs. spondylolisthesis vs. spondylolysis vs. MSK - Lumbar spine MRI - Pending, patient is refusing to get MRI done due to pain - C/w Toradol 30mg IV Q6 PRN and Toradol 15mg IV Q6 PRN - severe pain - Lidocaine patch and Flexeril 5 mg tid Microcytic Anemia - Hgb: 9.8, MCV: 68.4 - Iron studies showed iron was low (20), TIBC was low (244), and % saturation was low (8), ferritin was within normal limits - C/w Feosol 324 mg bid - Hemoglobin electrophoresis pending - Hemoglobinopathy results revealed Hct, Hgb, MCV, MCH, RDW decreased Hypokalemia - Potassium was 3.3 this morning - Repleted with 40meq PO potassium - Continue to monitor. DVT prophylaxis: lovenox 40 mg Patient case reviewed with and plan approved by attending physician, Dr. Pillai <Adal Pillai - Last Filed: 11/19/17 15:13> Objective - Vital Signs/Intake and Output Vital Signs (last 24 hours): Temp Pulse Resp BP Pulse Ox 99.5 F 79 20 130/78 96 11/19/17 14:00 11/19/17 14:12 11/19/17 14:00 11/19/17 14:12 11/19/17 14:00 Intake and Output: 11/19/17 11/19/17 06:59 18:59 Intake Total 960 Output Total 0 Balance 960 - Medications Medications: Current Medications Acetaminophen (Tylenol 325mg Tab) 325 mg PO Q4 PRN PRN Reason: Fever >100.4 F Clonidine HCl (Catapres) 0.1 mg PO Q8H PRN PRN Reason: Withdrawal symptoms Last Admin: 11/19/17 14:12 Dose: 0.1 mg Cyclobenzaprine HCl (Flexeril) 5 mg PO TID [facility] Last Admin: 11/19/17 13:04 Dose: 5 mg Enoxaparin Sodium (Lovenox) 40 mg SC DAILY [facility] PRN Reason: Protocol Last Admin: 11/19/17 09:33 Dose: 40 mg Ferrous Sulfate (Feosol) 324 mg PO BID [facility] Last Admin: 11/19/17 09:33 Dose: 324 mg Hydroxyzine HCl (Atarax) 25 mg PO Q8H PRN PRN Reason: Anxiety Vancomycin HCl (Vancomycin 1gm) 1 gm in 250 mls @ 133.333 mls/hr IVPB Q12 [facility] PRN Reason: Protocol Last Admin: 11/19/17 09:33 Dose: 133.333 mls/hr Piperacillin Sod/Tazobactam Sod (Zosyn 3.375 In Ns 100ml) 100 mls @ 200 mls/hr IV Q6 [facility] PRN Reason: Protocol Stop: 11/25/17 12:01 Last Admin: 11/19/17 13:04 Dose: 200 mls/hr Ketorolac Tromethamine (Toradol) 15 mg IVP Q6H PRN PRN Reason: Pain, moderate (4-7) Last Admin: 11/19/17 14:12 Dose: 15 mg Ketorolac Tromethamine (Toradol) 30 mg IVP Q6H PRN PRN Reason: Pain, severe (8-10) Last Admin: 11/18/17 20:41 Dose: 30 mg Lidocaine (Lidoderm) 1 ea TD DAILY [facility] Last Admin: 11/19/17 09:33 Dose: 1 ea Lorazepam (Ativan) 1 mg IVP Q6H [facility] PRN Reason: Protocol Last Admin: 11/19/17 13:07 Dose: 1 mg Lorazepam (Ativan) 1 mg IVP Q6H PRN; Protocol PRN Reason: Symptoms of alcohol withdrawl Methadone HCl (Methadone) 10 mg PO DAILY [facility] Last Admin: 11/19/17 09:35 Dose: Not Given Ondansetron HCl (Zofran Inj) 4 mg IVP Q6H PRN PRN Reason: Nausea/Vomiting Last Admin: 11/19/17 07:40 Dose: 4 mg Tramadol HCl (Ultram) 50 mg PO ONCE PRN PRN Reason: pls give 30mins before MRI - Labs Labs: 11/19/17 05:45 11/19/17 05:45 Attending/Attestation - Attestation I have personally seen and examined this patient.: Yes I have fully participated in the care of the patient.: Yes I have reviewed all pertinent clinical information, including history, physical exam and plan: Yes Notes (Text): 11/19/17 15:11 47 year old male with past medical history of hepatitis C, substance abuse, and IVDA who presented with complaint of right wrist pain and swelling and back pain. He also has Staph Aureus bacteremia. Echocardiogram is negative for vegetations. ID is following. Orthopedics evaluation was also requested. ESR/ CRP are elevated. He is on iv antibiotics and pending MRI of wrist and spine. Initially he refused due to pain. He was agreeable yesterday but now has acute opioid withdrawal with hallucinations. He is started on methadone. Case was discussed with psychiatry. Adal Pillai MD Hospitalist.
--- NOTE | 2017-11-19 14:13 | CARD ---
APPROVED REPORT Date of service: 11/19/2017 EXAM: Two-dimensional and M-mode echocardiogram with Doppler and color Doppler. INDICATION Infection:Rule out subacute bacterial endocarditis 2D DIMENSIONS Left Atrium (2D)3.4 (1.6-4.0cm)IVSd1.0 (0.7-1.1cm) LVDd5.5 (3.9-5.9cm)PWd1.0 (0.7-1.1cm) LVDs3.7 (2.5-4.0cm)FS (%) 32.2 % LVEF (%)59.9 (>50%) M-Mode DIMENSIONS Aortic Root2.70 (2.2-3.7cm)Aortic Cusp Exc.1.90 (1.5-2.0cm) Aortic Valve AoV Peak Wkjrpddp820.0cm/Arthur Peak GR.8mmHg Mitral Valve MV E Vdelpjnq16.4cm/sMV A Bztdkbmi74.5cm/sE/A ratio1.4 TDI E/Lateral E'0.0E/Medial E'0.0 Tricuspid Valve TR Peak [id number]/sRAP [id number] Peak Gr.8mmHg [id number] LEFT VENTRICLE The left ventricle is normal size. There is normal left ventricular wall thickness. The left ventricular function is normal. The left ventricular ejection fraction is within the normal range. There is normal LV segmental wall motion. The left ventricular diastolic function is normal. RIGHT VENTRICLE The right ventricle is normal size. There is normal right ventricular wall thickness. The right ventricular systolic function is normal. ATRIA The left atrium size is normal. The right atrium size is normal. AORTIC VALVE The aortic valve is normal in structure. No aortic regurgitation is present. There is no aortic valvular stenosis. MITRAL VALVE The mitral valve is moderately thickened. Mitral regurgitation is trace. There is no mitral valve stenosis. TRICUSPID VALVE The tricuspid valve is normal in structure. There is no tricuspid valve regurgitation noted. GREAT VESSELS The aortic root is normal in size. The IVC is normal in size and collapses >50% with inspiration. PERICARDIAL EFFUSION There is no pericardial effusion. <Conclusion> The left ventricle is normal size. There is normal left ventricular wall thickness. The left ventricular function is normal. The left ventricular ejection fraction is within the normal range. There is normal LV segmental wall motion. The left ventricular diastolic function is normal. The mitral valve is moderately thickened, No vegitation seen
--- NOTE | 2017-11-19 16:02 | CON ---
Copied To: Fara Lindsey MD Attending MD: Fara Lindsey MD DATE: 11/19/2017 CONSULTATION NOTE: HISTORY OF PRESENT ILLNESS: Shortly, the patient is a 47-year-old male, long history of IV heroin abuse. The patient came to the emergency room complaining of swelling and erythema of the right hand. The patient was admitted to the medical site for possible abscess and cellulitis. The patient is having long history of polysubstance abuse and dependence. The patient was in delirium stage. The patient was hallucinating overnight, that is why this investigative writer was consulted for this patient. The patient was seen and examined, discussed with Dr. Pillai as well as nursing staff. As per nursing staff, the patient was actually hallucinating over nighttime. The patient is very unsteady. The patient is very confused, but not aggressive. This investigative writer attempted to speak to the patient, but the patient is very poor and unreliable historian due to change in mental status. The patient answers for the questions were I am as good as you are, I sleep as good as you are , am feeling not good as you are. Information is limited due to the patient's mental status. Temperature is 99.5, pulse is 79, blood pressure is 130/78, respirations 20, oxygen saturation is 96. Medications reviewed. The patient is on Tylenol, Catapres, Flexeril, Lovenox, Feosol, Atarax, Toradol, Lidoderm, Ativan, methadone 10 mg p.o. daily, Zosyn. This investigative writer will implement Seroquel 50 mg at the nighttime schedule, tramadol is up to the medical team. The patient is on vancomycin. This investigative writer also recommend Geodon 20 mg IM every 6 hours p.r.n. Labs reviewed. WBC cells were coming up, 18.4 today; hemoglobin is 9.8 and hematocrit 29. Chemistry reviewed. Urinalysis reviewed. Toxicology was positive for opioids as well as cocaine. The patient was providing conflicting information about methadone. The patient was telling that he is going for methadone clinic to this investigative writer. The patient said that he never said that he is going to methadone clinic and he stopped going because he is homeless. Microbiology showed Staph aureus positive and gram-negative rods. MENTAL STATUS EXAMINATION: The patient appears to be alert, but very confused. The patient thinks that he is at [facility]. When this investigative writer said that he is in [place], the patient said that [place] is part of the [facility], does not make any sense. Mood described, I am feeling good as well as you are. Thought process disorganized, circumstantial, tangential. Difficulty to stay in focus and sustain attention. Insight and judgment seems to be very impaired at present moment. Impulses are not predictable. The patient is obviously psychotic and disorganized, but most in delirium stage. IMPRESSION: Delirium seems to be multifactorial. The patient most likely is withdrawn from the opioids. The patient has since sepsis. Blood was positive for Staphylococcus aureus and gram-negative rods. PLAN: This investigative writer implemented Seroquel at the nighttime. Geodon was started by this investigative writer. The patient is currently on one-to-one. Dr. Perry will follow up on this patient over the weekend. Should you have any questions, give us a call back. We will monitor the patient closely. Thank you very much for letting me participate in the care of your patient. Fara Lindsey MD
--- NOTE | 2017-11-19 23:00 | CP.PCM.PN ---
Subjective - Date & Time of Evaluation Date of Evaluation: 11/19/17 Time of Evaluation: 12:45 - Subjective Subjective: Right wrist is still painful, still having fevers, no diarrhea, no nausea. Objective - Vital Signs/Intake and Output Vital Signs (last 24 hours): Temp Pulse Resp BP Pulse Ox 99.4 F 64 20 124/79 99 11/18/17 06:00 11/18/17 06:00 11/18/17 06:00 11/18/17 06:00 11/18/17 06:00 - Medications Medications: Current Medications Acetaminophen (Tylenol 325mg Tab) 325 mg PO Q4 PRN PRN Reason: Fever >100.4 F Clonidine HCl (Catapres) 0.1 mg PO Q8H PRN PRN Reason: Withdrawal symptoms Cyclobenzaprine HCl (Flexeril) 5 mg PO TID [facility] Last Admin: 11/18/17 14:10 Dose: 5 mg Daptomycin (Cubicin) 380 mg 6 mg/kg (380 mg) IV ONCE ONE PRN Reason: Protocol Stop: 11/18/17 16:46 Enoxaparin Sodium (Lovenox) 40 mg SC DAILY [facility] PRN Reason: Protocol Last Admin: 11/18/17 09:39 Dose: 40 mg Ferrous Sulfate (Feosol) 324 mg PO BID [facility] Last Admin: 11/18/17 09:39 Dose: 324 mg Vancomycin HCl (Vancomycin 1gm) 1 gm in 250 mls @ 133.333 mls/hr IVPB Q12 [facility] PRN Reason: Protocol Last Admin: 11/18/17 09:40 Dose: 133.333 mls/hr Piperacillin Sod/Tazobactam Sod (Zosyn 3.375 In Ns 100ml) 100 mls @ 200 mls/hr IV Q6 [facility] PRN Reason: Protocol Stop: 11/25/17 12:01 Last Admin: 11/18/17 12:07 Dose: 200 mls/hr Ketorolac Tromethamine (Toradol) 15 mg IVP Q6H PRN PRN Reason: Pain, moderate (4-7) Last Admin: 11/18/17 00:16 Dose: 15 mg Ketorolac Tromethamine (Toradol) 30 mg IVP Q6H PRN PRN Reason: Pain, severe (8-10) Last Admin: 08/23/18 14:10 Dose: 30 mg Lidocaine (Lidoderm) 1 ea TD DAILY [facility] Last Admin: 11/18/17 09:39 Dose: 1 ea Lorazepam (Ativan) 1 mg IVP ONCE PRN; Protocol PRN Reason: pls give 30mins before MRI Tramadol HCl (Ultram) 50 mg PO ONCE PRN PRN Reason: pls give 30mins before MRI - Constitutional Appears: Non-toxic, Chronically Ill - Head Exam Head Exam: NORMAL INSPECTION - Respiratory Exam Respiratory Exam: Decreased Breath Sounds - Cardiovascular Exam Cardiovascular Exam: +S1, +S2 - GI/Abdominal Exam GI & Abdominal Exam: Soft. absent: Tenderness - Extremities Exam Additional comments: right hand swelling Assessment and Plan - Assessment and Plan (Free Text) Plan: Assessment sepsis due to Staph aureus and gram negative bacilli bacteremia with right hand and wrist skin and skin structure infection, R/O septic arthritis of wrist , R/O endocarditis dyslipidemia hepatitis C infection history of IV drug use chronic alcohol abuse Plan continue Vancomycin and Zosyn day 3 pending sensitivities of the Staph aureus and identification and sensitivities of the gram negative bacilli in the blood cx ; repeat blood cx ar enegative x 1 day; reviewed xray of right hand and wrist and we are awaiting MRI of the hand reviewed 2D echo showing thickened mitral valves - may need MITUL follow up [facility] has also been consulted and we are awaiting evaluation and recommendations will continue to monitor clinically HIV test is non-reactive Hepatitis C infection should be addressed as an outpatient
[2017-11-20] MEDS: Piperacillin/Tazobact 3.375 gm 100 ML IV SCH ×5 (00:05→23:19)
[2017-11-20 06:53] LABS: ALB/GLOB RATIO 0.7 (1.1-1.8); ALBUMIN 2.7 g/dL (3.0-4.8); ALT/SGPT 24 U/L (7-56); AST/SGOT 37 U/L (17-59); BLOOD UREA NITROGEN 15 mg/dL (7-21); CALCIUM 8.6 mg/dL (8.4-10.5); GFR NON-AFRICAN AMERICAN > 60
[2017-11-20 06:58] LABS: BASO # 0.02 K/mm3 (0.0-2.0); BASO % 0.1 % (0.0-3.0); EOS # 0.1 (0.0-0.7); EOS % 0.6 % (1.5-5.0); GRAN # 12.29 (1.4-6.5); GRAN % 77.1 % (50.0-68.0); HEMOGLOBIN 10.2 g/dL (14.0-18.0); LYMPH # 2.5 (1.2-3.4); LYMPH % 15.9 % (22.0-35.0); MEAN CELL VOLUME 69.8 fl (80.0-105.0); MEAN CORPUSCULAR HEMOGLOBIN 22.8 pg (25.0-35.0); MEAN CORPUSCULAR HGB CONC 32.7 g/dl (31.0-37.0); MEAN PLATELET VOLUME 8.8 fl (7.0-11.0); MONO % 6.3 % (1.0-6.0); RBC 4.47 10^6/uL (3.5-6.1); RED CELL DISTRIBUTION WIDTH 16.7 % (11.5-14.5); WHITE BLOOD COUNT 15.9 10^3/ul (4.5-11.0)
[2017-11-20] MEDS: Enoxaparin 40 mg Syringe SC SCH (09:47)
[2017-11-20] MEDS: Vancomycin 1gm in NS 250ml 1 GM/250 ML BAG IVPB SCH ×2 (09:47→21:28)
[2017-11-20] MEDS: Lidocaine 5% Patch TD SCH (09:49)
[2017-11-20] MEDS ORDERED: Potassium Chloride 40 mEq/30 ml LIQ UD PO ONE (16:00)
--- NOTE | 2017-11-20 17:23 | PN ---
Copied To: Ty Will MD Attending MD: Ty Will MD DATE: 11/20/2017 SUBJECTIVE: The patient is in bed, in no acute distress, was seen earlier today in [facility], bed 2, did have a fever earlier. PHYSICAL EXAMINATION: VITAL SIGNS: Temperature is 100.3, blood pressure is 106/60, respiratory rate of 24, heart rate is 77. HEENT: Unremarkable. NECK: Supple. LUNGS: Have decreased breath sounds. HEART: Normal S1 and S2. ABDOMEN: Soft, nontender. No rebound, no guarding, no masses. LABORATORY DATA: Reveals a white count of 15.9, hemoglobin of 10. Chemistries are noted with a creatinine of 0.7. C-reactive protein is elevated and urinalysis is noted. Toxicology is reviewed and noted. HIV is negative. Microbiology reveals the blood cultures have MRSA and a gram-negative clay. Repeat blood cultures, no growth at 24 hours. Review of orders reveals the patient to be on vancomycin and Zosyn. ASSESSMENT AND PLAN: A 47-year-old male seen in [facility], bed 2, with sepsis, with methicillin-resistant Staphylococcus aureus and gram-negative clay bacteremia in the right hand, the wrist skin and skin structure. Must rule out endocarditis and a history of intravenous drug abuse or hepatitis C. On vancomycin and Zosyn. We will check on the echo and we will follow closely with you. Check on repeat blood cultures. Ty Will MD
--- NOTE | 2017-11-20 17:57 | CP.PCM.PN ---
<Eduard Alba - Last Filed: 11/20/17 17:44> Subjective - Date & Time of Evaluation Date of Evaluation: 11/20/17 Time of Evaluation: 17:44 - Subjective Subjective: Eduard Alba DO PGY1 - Internal Medicine Labor Relations Supervisor - Hospital Progress Note Seen and examined at bedside this AM. Overnight patient was reported to be somewhat lethargic and slept most of night. Also had some low grade fevers w/ T of 100.3 reported. Reportedly much calmer today than day prior. Agreeable with diagnostic and treatment plans moving forward. Did report episode of diarrhea. ROS otherwise unremarkable. Objective - Vital Signs/Intake and Output Vital Signs (last 24 hours): Temp Pulse Resp BP Pulse Ox 98.2 F 73 20 116/74 96 11/20/17 13:55 11/20/17 13:55 11/20/17 13:55 11/20/17 13:55 11/20/17 13:55 Intake and Output: 11/20/17 11/20/17 06:59 18:59 Intake Total 780 Output Total 800 Balance -20 - Medications Medications: Current Medications Acetaminophen (Tylenol 325mg Tab) 325 mg PO Q4 PRN PRN Reason: Fever >100.4 F Last Admin: 11/20/17 00:55 Dose: 325 mg Clonidine HCl (Catapres) 0.1 mg PO Q8H PRN PRN Reason: Withdrawal symptoms Cyclobenzaprine HCl (Flexeril) 5 mg PO TID [facility] Last Admin: 11/20/17 13:40 Dose: 5 mg Enoxaparin Sodium (Lovenox) 40 mg SC DAILY [facility] PRN Reason: Protocol Last Admin: 11/20/17 09:47 Dose: 40 mg Ferrous Sulfate (Feosol) 324 mg PO BID [facility] Last Admin: 11/20/17 11:54 Dose: Not Given Hydroxyzine HCl (Atarax) 25 mg PO Q8H PRN PRN Reason: Anxiety Vancomycin HCl (Vancomycin 1gm) 1 gm in 250 mls @ 133.333 mls/hr IVPB Q12 [facility] PRN Reason: Protocol Last Admin: 11/20/17 09:47 Dose: 133.333 mls/hr Piperacillin Sod/Tazobactam Sod (Zosyn 3.375 In Ns 100ml) 100 mls @ 200 mls/hr IV Q6 [facility] PRN Reason: Protocol Stop: 11/25/17 12:01 Last Admin: 11/20/17 11:59 Dose: 200 mls/hr Ketorolac Tromethamine (Toradol) 15 mg IVP Q6H PRN PRN Reason: Pain, moderate (4-7) Last Admin: 11/20/17 00:55 Dose: 15 mg Ketorolac Tromethamine (Toradol) 30 mg IVP Q6H PRN PRN Reason: Pain, severe (8-10) Last Admin: 11/19/17 20:28 Dose: 30 mg Lidocaine (Lidoderm) 1 ea TD DAILY [facility] Last Admin: 11/20/17 09:49 Dose: 1 ea Lorazepam (Ativan) 1 mg IVP Q6H [facility] PRN Reason: Protocol Last Admin: 11/20/17 17:40 Dose: Not Given Lorazepam (Ativan) 1 mg IVP Q6H PRN; Protocol PRN Reason: Symptoms of alcohol withdrawl Methadone HCl (Methadone) 15 mg PO DAILY [facility] Last Admin: 11/20/17 09:48 Dose: 15 mg Ondansetron HCl (Zofran Inj) 4 mg IVP Q6H PRN PRN Reason: Nausea/Vomiting Last Admin: 11/19/17 07:40 Dose: 4 mg Quetiapine Fumarate (Seroquel) 50 mg PO HS [facility] PRN Reason: Protocol Last Admin: 11/19/17 22:09 Dose: Not Given Tramadol HCl (Ultram) 50 mg PO ONCE PRN PRN Reason: pls give 30mins before MRI Ziprasidone (Geodon Inj) 20 mg IM Q6H PRN; Protocol PRN Reason: severe agitaiton/psychosis Last Admin: 11/19/17 15:25 Dose: 20 mg - Labs Labs: 11/20/17 06:00 11/20/17 06:00 Physical Exam - Constitutional Appears: No Acute Distress, Agitated, Confused - Head Exam Head Exam: ATRAUMATIC, NORMAL INSPECTION - Eye Exam Eye Exam: Normal appearance - ENT Exam ENT Exam: Mucous Membranes Moist - Respiratory Exam Respiratory Exam: Clear to Ausculation Bilateral. absent: Rales, Rhonchi, Wheezes, Respiratory Distress - Cardiovascular Exam Cardiovascular Exam: REGULAR RHYTHM, +S1, +S2. absent: Gallop, Rubs, Murmur - GI/Abdominal Exam GI & Abdominal Exam: Soft, Normal Bowel Sounds. absent: Tenderness - Extremities Exam Extremities Exam: absent: Calf Tenderness, Pedal Edema Additional comments: There is still swelling in the right wrist. Right wrist is painful to touch. Multiple needle track on bilateral upper extremities. - Neurological Exam Neurological Exam: Altered, Awake. absent: Normal Gait, Oriented x3 - Psychiatric Exam Psychiatric exam: Anxious. absent: Normal Affect, Normal Mood - Skin Skin Exam: Dry, Intact, Normal Color, Warm Assessment and Plan - Assessment and Plan (Free Text) Assessment: This 47 year old male with PMH of Hep C, substance abuse, hyperlipidemia, and carpal tunnel who is admitted for right wrist pain with swelling and opioid withdrawal symptoms. Patient was to get further imaging performed today; however he still displayed some signs of agitation and did not appear able to complete imaging as per nursing Plan: Right wrist pain - Need to r/o cellulitis vs. osteomyelitis vs fracture vs septic arthritis - MRI w/o contrast of wrist - Pending - Right wrist X ray showed moderate dorsal wrist and hand soft tissue edema without emphysematous changes associated. Potential heterotopic calcification or even chip or avulsion fracture is seen at the mid wrist dorsal soft tissues in only one view. - HIV testing: non-reactive - Patient afebrile - WBC down trending today - CRP: 195, ESR: 54 - UDS was positive for cocaine and opioids - Vancomyicn - day 3 - Zosyn - Day 3 - Received 1 x dose of Daptomycin 380mg IV - ID Following, Dr. Deshpande - Orthopedic surgery consulted, Dr. Castro Bacteremia - Blood culture 1/2 Grew S. aureus and gram negative rods; 1/2 grew S. Aureus; will follow up with sensitivities - Repeat blood cultures 2/2 negative at 24H - 2D echo - EF of 59.9%; No vegetation however mitral valve thickening noted - May consider MITUL as per ID - C/w antibiotics for now; - ID Following Diarrhea: Opiate withdrawal vs CDiff infection CDIFF Ag/Ab studies ordered Opioid withdrawal symtoms Agitation: - Started Ativan 1mg Q6H and 1mg Ativan 1mg Q6 PRN - Started Methadone 20mg PO QD - Seroquel 50 PO HS per psych Fever: - Tylenol 325 mg Q4 PRN Nausea: - Zofran 4mg Q6H PRN - Fall, seizure precautions - CIWA protocol, CIWAs today in 5 vs 12/14 day prior. - Psychiatry consulted, Dr. Chaudhari Lumbar tenderness - Need to r/o osteomyelitis vs. spondylolisthesis vs. spondylolysis vs. MSK - Lumbar spine MRI pending - C/w Toradol 30mg IV Q6 PRN and Toradol 15mg IV Q6 PRN - severe pain - Lidocaine patch and Flexeril 5 mg tid Microcytic Anemia - Hgb: 9.8, MCV: 68.4 - Iron studies showed iron was low (20), TIBC was low (244), and % saturation was low (8), ferritin was within normal limits - C/w Feosol 324 mg bid - Hemoglobin electrophoresis pending - Hemoglobinopathy results revealed Hct, Hgb, MCV, MCH, RDW decreased Hypokalemia - improving -Repleted K+ again this afternoon -Will reassess in AM DVT prophylaxis: lovenox 40 mg Dispostion: Continued inpatient management at this time for Opiate withdrawal symptoms as well as possible septic joint. Patient was seen, examined, and discussed w/ attending physician Dr. Rosas Alba DO PGY1 - Internal Medicine Labor Relations Supervisor <Adal Pillai - Last Filed: 11/20/17 19:19> Objective - Vital Signs/Intake and Output Vital Signs (last 24 hours): Temp Pulse Resp BP Pulse Ox 99.5 F 88 18 126/65 98 11/20/17 17:59 11/20/17 17:59 11/20/17 17:59 11/20/17 17:59 11/20/17 17:59 - Medications Medications: Current Medications Acetaminophen (Tylenol 325mg Tab) 325 mg PO Q4 PRN PRN Reason: Fever >100.4 F Last Admin: 11/20/17 00:55 Dose: 325 mg Clonidine HCl (Catapres) 0.1 mg PO Q8H PRN PRN Reason: Withdrawal symptoms Cyclobenzaprine HCl (Flexeril) 5 mg PO TID [facility] Last Admin: 11/20/17 17:46 Dose: 5 mg Enoxaparin Sodium (Lovenox) 40 mg SC DAILY [facility] PRN Reason: Protocol Last Admin: 11/20/17 09:47 Dose: 40 mg Ferrous Sulfate (Feosol) 324 mg PO BID [facility] Last Admin: 11/20/17 17:45 Dose: 324 mg Hydroxyzine HCl (Atarax) 25 mg PO Q8H PRN PRN Reason: Anxiety Vancomycin HCl (Vancomycin 1gm) 1 gm in 250 mls @ 133.333 mls/hr IVPB Q12 [facility] PRN Reason: Protocol Last Admin: 11/20/17 09:47 Dose: 133.333 mls/hr Piperacillin Sod/Tazobactam Sod (Zosyn 3.375 In Ns 100ml) 100 mls @ 200 mls/hr IV Q6 [facility] PRN Reason: Protocol Stop: 11/25/17 12:01 Last Admin: 11/20/17 17:45 Dose: 200 mls/hr Ketorolac Tromethamine (Toradol) 15 mg IVP Q6H PRN PRN Reason: Pain, moderate (4-7) Last Admin: 11/20/17 17:56 Dose: 15 mg Ketorolac Tromethamine (Toradol) 30 mg IVP Q6H PRN PRN Reason: Pain, severe (8-10) Last Admin: 11/19/17 20:28 Dose: 30 mg Lidocaine (Lidoderm) 1 ea TD DAILY [facility] Last Admin: 11/20/17 09:49 Dose: 1 ea Lorazepam (Ativan) 1 mg IVP Q6H [facility] PRN Reason: Protocol Last Admin: 11/20/17 17:40 Dose: Not Given Lorazepam (Ativan) 1 mg IVP Q6H PRN; Protocol PRN Reason: Symptoms of alcohol withdrawl Methadone HCl (Methadone) 15 mg PO DAILY [facility] Last Admin: 11/20/17 09:48 Dose: 15 mg Ondansetron HCl (Zofran Inj) 4 mg IVP Q6H PRN PRN Reason: Nausea/Vomiting Last Admin: 11/19/17 07:40 Dose: 4 mg Quetiapine Fumarate (Seroquel) 50 mg PO HS [facility] PRN Reason: Protocol Last Admin: 11/19/17 22:09 Dose: Not Given Tramadol HCl (Ultram) 50 mg PO ONCE PRN PRN Reason: pls give 30mins before MRI Ziprasidone (Geodon Inj) 20 mg IM Q6H PRN; Protocol PRN Reason: severe agitaiton/psychosis Last Admin: 11/19/17 15:25 Dose: 20 mg - Labs Labs: 11/20/17 06:00 11/20/17 06:00 Attending/Attestation - Attestation I have personally seen and examined this patient.: Yes I have fully participated in the care of the patient.: Yes I have reviewed all pertinent clinical information, including history, physical exam and plan: Yes Notes (Text): 11/20/17 19:16 47 year old male with past medical history of hepatitis C, substance abuse, and IVDA who presented with complaint of right wrist pain and swelling and back pain. He also has Staph Aureus bacteremia. Echocardiogram is negative for vegetations. ID is following. Orthopedics evaluation was also requested and awaiting MRI studies still pending. ESR/CRP are elevated. He is on iv antibiotics. Repeat blood cultures negative to date. He was started on methadone for withdrawal symptoms which have improved. He is complaining of diarrhea. Stool for cdif study is ordered; if negative consider imodium. Adal Pillai MD Hospitalist.
[2017-11-21] MEDS: Piperacillin/Tazobact 3.375 gm 100 ML IV SCH ×4 (06:16→23:31)
[2017-11-21 08:03] LABS: BASO # 0.03 K/mm3 (0.0-2.0); BASO % 0.2 % (0.0-3.0); EOS # 0.2 (0.0-0.7); EOS % 1.3 % (1.5-5.0); GRAN # 13.82 (1.4-6.5); GRAN % 76.2 % (50.0-68.0); HEMOGLOBIN 9.2 g/dL (14.0-18.0); LYMPH # 2.9 (1.2-3.4); MEAN CELL VOLUME 69.3 fl (80.0-105.0); MEAN CORPUSCULAR HEMOGLOBIN 22.8 pg (25.0-35.0); MEAN CORPUSCULAR HGB CONC 32.9 g/dl (31.0-37.0); MEAN PLATELET VOLUME 8.3 fl (7.0-11.0); MONO # 1.2 (0.1-0.6); MONO % 6.3 % (1.0-6.0); RBC 4.04 10^6/uL (3.5-6.1); RED CELL DISTRIBUTION WIDTH 16.7 % (11.5-14.5); WHITE BLOOD COUNT 18.1 10^3/ul (4.5-11.0)
[2017-11-21 08:39] LABS: ALB/GLOB RATIO 0.7 (1.1-1.8); ALBUMIN 2.5 g/dL (3.0-4.8); ALT/SGPT 37 U/L (7-56); AST/SGOT 59 U/L (17-59); BLOOD UREA NITROGEN 12 mg/dL (7-21); CALCIUM 8.5 mg/dL (8.4-10.5); GFR NON-AFRICAN AMERICAN > 60
[2017-11-21] MEDS: Vancomycin 1gm in NS 250ml 1 GM/250 ML BAG IVPB SCH ×2 (09:26→22:32)
[2017-11-21] MEDS: Enoxaparin 40 mg Syringe SC SCH (09:27)
[2017-11-21] MEDS: Lidocaine 5% Patch TD SCH (09:29)
--- NOTE | 2017-11-21 12:17 | CP.PCM.PN ---
<Arcenio Santana - Last Filed: 11/21/17 12:24> Subjective - Date & Time of Evaluation Date of Evaluation: 11/21/17 Time of Evaluation: 10:30 - Subjective Subjective: PGY-[address] Pillai. No acute events noted overnight. Patient's behavior much more stable since yesterday afternoon since starting methadone, seroquel, ativan. Today patient was AAOx3. We will discontinue 1:1. Stated his right wrist was better - he was able to move it. Main compliant was back pain. He stated he is willing to go for MRI. Denied nausea/vomiting, abdominal pain, fevers, chest pain. He was able to provide a stool sample today. Objective - Vital Signs/Intake and Output Vital Signs (last 24 hours): Temp Pulse Resp BP Pulse Ox 98.6 F 62 18 102/70 97 11/21/17 07:00 11/21/17 07:00 11/21/17 07:00 11/21/17 07:00 11/21/17 07:00 - Medications Medications: Current Medications Acetaminophen (Tylenol 325mg Tab) 325 mg PO Q4 PRN PRN Reason: Fever >100.4 F Last Admin: 11/20/17 00:55 Dose: 325 mg Clonidine HCl (Catapres) 0.1 mg PO Q8H PRN PRN Reason: Withdrawal symptoms Cyclobenzaprine HCl (Flexeril) 5 mg PO TID [facility] Last Admin: 11/21/17 09:26 Dose: 5 mg Enoxaparin Sodium (Lovenox) 40 mg SC DAILY [facility] PRN Reason: Protocol Last Admin: 11/21/17 09:27 Dose: 40 mg Ferrous Sulfate (Feosol) 324 mg PO BID [facility] Last Admin: 11/21/17 09:26 Dose: 324 mg Hydroxyzine HCl (Atarax) 25 mg PO Q8H PRN PRN Reason: Anxiety Vancomycin HCl (Vancomycin 1gm) 1 gm in 250 mls @ 133.333 mls/hr IVPB Q12 [facility] PRN Reason: Protocol Last Admin: 11/21/17 09:26 Dose: 133.333 mls/hr Piperacillin Sod/Tazobactam Sod (Zosyn 3.375 In Ns 100ml) 100 mls @ 200 mls/hr IV Q6 [facility] PRN Reason: Protocol Stop: 11/25/17 12:01 Last Admin: 11/21/17 11:10 Dose: 200 mls/hr Ketorolac Tromethamine (Toradol) 15 mg IVP Q6H PRN PRN Reason: Pain, moderate (4-7) Last Admin: 11/20/17 17:56 Dose: 15 mg Ketorolac Tromethamine (Toradol) 30 mg IVP Q6H PRN PRN Reason: Pain, severe (8-10) Last Admin: 11/21/17 03:05 Dose: 30 mg Lidocaine (Lidoderm) 1 ea TD DAILY [facility] Last Admin: 11/21/17 09:29 Dose: 1 ea Lorazepam (Ativan) 1 mg IVP Q6H [facility] PRN Reason: Protocol Last Admin: 11/21/17 06:44 Dose: Not Given Lorazepam (Ativan) 1 mg IVP Q6H PRN; Protocol PRN Reason: Symptoms of alcohol withdrawl Methadone HCl (Methadone) 10 mg PO DAILY [facility] Stop: 11/22/17 10:01 Methadone HCl (Methadone) 5 mg PO DAILY [facility] Stop: 11/23/17 10:01 Ondansetron HCl (Zofran Inj) 4 mg IVP Q6H PRN PRN Reason: Nausea/Vomiting Last Admin: 11/19/17 07:40 Dose: 4 mg Quetiapine Fumarate (Seroquel) 50 mg PO HS [facility] PRN Reason: Protocol Last Admin: 11/20/17 21:28 Dose: 50 mg Tramadol HCl (Ultram) 50 mg PO ONCE PRN PRN Reason: pls give 30mins before MRI Ziprasidone (Geodon Inj) 20 mg IM Q6H PRN; Protocol PRN Reason: severe agitaiton/psychosis Last Admin: 11/19/17 15:25 Dose: 20 mg - Labs Labs: 11/21/17 07:50 11/21/17 07:50 - Additional Findings Additional findings: - Constitutional Appears: No Acute Distress - Head Exam Head Exam: ATRAUMATIC, NORMAL INSPECTION - Eye Exam Eye Exam: Normal appearance, non-icteric - ENT Exam ENT Exam: Mucous Membranes Moist - Respiratory Exam Respiratory Exam: Clear to Ausculation Bilateral. absent: Rales, Rhonchi, Wheezes, Respiratory Distress - Cardiovascular Exam Cardiovascular Exam: REGULAR RHYTHM, +S1, +S2. absent: Gallop, Rubs, Murmur - GI/Abdominal Exam GI & Abdominal Exam: Soft, Normal Bowel Sounds. absent: Tenderness - Extremities Exam Extremities Exam: absent: Calf Tenderness, Pedal Edema Additional comments: There is still swelling in the right wrist. Right wrist is painful to touch. Multiple needle track on bilateral upper extremities. - Neurological Exam Neurological Exam: Altered, Awake. absent: Normal Gait, Oriented x3 - Psychiatric Exam Psychiatric exam: Anxious however behavior much improved - AAOx3 today, not agitated, no audio/visual hallucinations. - Skin Skin Exam: Dry, Intact, Normal Color, Warm Assessment and Plan - Assessment and Plan (Free Text) Assessment: This 47 year old male with PMH of daily IV drug abuse, Hep C, substance abuse, hyperlipidemia, and carpal tunnel who is admitted for right wrist pain with swelling and opioid withdrawal symptoms. Plan: Right wrist pain - Need to r/o cellulitis vs. osteomyelitis vs fracture vs septic arthritis - MRI w/o contrast of wrist - Pending - Right wrist X ray showed moderate dorsal wrist and hand soft tissue edema without emphysematous changes associated. Potential heterotopic calcification or even chip or avulsion fracture is seen at the mid wrist dorsal soft tissues in only one view. - HIV testing: non-reactive - Patient afebrile, Tmax 101.7 - WBC still elevated - CRP: 195, ESR: 54 - UDS was positive for cocaine and opioids - Vancomyicn - day 4 - Zosyn - Day 4 - Received 1 x dose of Daptomycin 380mg IV - ID Following, Dr. Deshpande - Orthopedic surgery consulted, Dr. Castro MRSA Bacteremia - Blood culture 11/17 positive for MRSA sensitive to vancomycin, Blood culture 1 tube also positive for gram negative clay - Repeat blood 11/18 cultures 2/2 negative up to date - 2D echo - EF of 59.9%; No vegetation however mitral valve thickening noted * will discuss with ID regarding need for MITUL or repeat TTE - C/w antibiotics, zosyn 3.375mg q6h and vanco 1g q12h; - Contact precautions - ID Following, Dr Will/Dr Deshpande Lumbar tenderness, Chronic - Need to r/o osteomyelitis vs. spondylolisthesis vs. spondylolysis vs. MSK - Lumbar spine MRI pending - C/w Toradol 30mg IV Q6 PRN for severe pain and Toradol 15mg IV Q6 PRN for moderate pain - Lidocaine patch and Flexeril 5 mg tid Diarrhea, Resolved: Opiate withdrawal vs CDiff infection CDIFF Ag/Ab studies ordered * Sample collected today 11/21 however per lab the stool was too watery and cdiff study not able to be performed. We will try to re-collect another sample when stool more formed. Opioid withdrawal symtoms Agitation: - Started Ativan 1mg Q8H and 1mg Ativan 1mg Q8H PRN - Started Methadone 20mg PO QD taper by 5mg each day - Seroquel 50 PO HS per psych - Geodon 20mg IM q6h prn Fever: - Tylenol 325 mg Q4 PRN Nausea: - Zofran 4mg Q6H PRN Anxiety: - Hydroxyzine 25mg po q8h prn - Patient with daily IV drug abuse - Fall, seizure precautions - CIWA protocol, CIWAs today in 5 vs / day prior. - Psychiatry consulted, Dr. Chaudhari Cocaine Abuse - UDS positive for cocaine - Avoid beta-blockers for now Microcytic Anemia - Hgb: 9.8, MCV: 68.4 - Iron studies showed iron was low (20), TIBC was low (244), and % saturation was low (8), ferritin was within normal limits - C/w Feosol 324 mg bid - Hemoglobinopathy results revealed Hct, Hgb, MCV, MCH, RDW decreased Hypokalemia, Resolved -Will reassess in AM DVT prophylaxis: lovenox 40 mg Dispostion: Continued inpatient management at this time for Opiate withdrawal symptoms as well as possible septic joint. Patient was seen, examined, and discussed w/ attending physician Dr. Pillai <Adal Pillai - Last Filed: 11/21/17 13:18> Objective - Vital Signs/Intake and Output Vital Signs (last 24 hours): Temp Pulse Resp BP Pulse Ox 98.6 F 62 18 102/70 97 11/21/17 07:00 11/21/17 07:00 11/21/17 07:00 11/21/17 07:00 11/21/17 07:00 - Medications Medications: Current Medications Acetaminophen (Tylenol 325mg Tab) 325 mg PO Q4 PRN PRN Reason: Fever >100.4 F Last Admin: 11/20/17 00:55 Dose: 325 mg Clonidine HCl (Catapres) 0.1 mg PO Q8H PRN PRN Reason: Withdrawal symptoms Cyclobenzaprine HCl (Flexeril) 5 mg PO TID [facility] Last Admin: 11/21/17 09:26 Dose: 5 mg Enoxaparin Sodium (Lovenox) 40 mg SC DAILY [facility] PRN Reason: Protocol Last Admin: 11/21/17 09:27 Dose: 40 mg Ferrous Sulfate (Feosol) 324 mg PO BID [facility] Last Admin: 11/21/17 09:26 Dose: 324 mg Hydroxyzine HCl (Atarax) 25 mg PO Q8H PRN PRN Reason: Anxiety Vancomycin HCl (Vancomycin 1gm) 1 gm in 250 mls @ 133.333 mls/hr IVPB Q12 [facility] PRN Reason: Protocol Last Admin: 11/21/17 09:26 Dose: 133.333 mls/hr Piperacillin Sod/Tazobactam Sod (Zosyn 3.375 In Ns 100ml) 100 mls @ 200 mls/hr IV Q6 [facility] PRN Reason: Protocol Stop: 11/25/17 12:01 Last Admin: 11/21/17 11:10 Dose: 200 mls/hr Ketorolac Tromethamine (Toradol) 15 mg IVP Q6H PRN PRN Reason: Pain, moderate (4-7) Last Admin: 11/21/17 12:50 Dose: 15 mg Ketorolac Tromethamine (Toradol) 30 mg IVP Q6H PRN PRN Reason: Pain, severe (8-10) Last Admin: 11/21/17 03:05 Dose: 30 mg Lidocaine (Lidoderm) 1 ea TD DAILY [facility] Last Admin: 11/21/17 09:29 Dose: 1 ea Lorazepam (Ativan) 1 mg IVP Q8H [facility] PRN Reason: Protocol Lorazepam (Ativan) 1 mg IVP Q8H PRN; Protocol PRN Reason: Symptoms of alcohol withdrawl Methadone HCl (Methadone) 10 mg PO DAILY [facility] Stop: 11/22/17 10:01 Methadone HCl (Methadone) 5 mg PO DAILY [facility] Stop: 11/23/17 10:01 Ondansetron HCl (Zofran Inj) 4 mg IVP Q6H PRN PRN Reason: Nausea/Vomiting Last Admin: 11/19/17 07:40 Dose: 4 mg Quetiapine Fumarate (Seroquel) 50 mg PO HS [facility] PRN Reason: Protocol Last Admin: 11/20/17 21:28 Dose: 50 mg Tramadol HCl (Ultram) 50 mg PO ONCE PRN PRN Reason: pls give 30mins before MRI Ziprasidone (Geodon Inj) 20 mg IM Q6H PRN; Protocol PRN Reason: severe agitaiton/psychosis Last Admin: 11/19/17 15:25 Dose: 20 mg - Labs Labs: 11/21/17 07:50 11/21/17 07:50 Attending/Attestation - Attestation I have personally seen and examined this patient.: Yes I have fully participated in the care of the patient.: Yes I have reviewed all pertinent clinical information, including history, physical exam and plan: Yes Notes (Text): 11/21/17 13:14 47 year old male with past medical history of hepatitis C, substance abuse, and IVDA who presented with complaint of right wrist pain and swelling and back pain. He is pending MRI of the wrist and spine. ESR / CPR were elevated. Blood cultures were positive for MRSA x 2 and 1 bottle with gram negative rods. Repeat blood cultures are negative to date. Echocardiogram was negative for vegetations. ID is following. Orthopedics evaluation was also requested and awaiting MRI studies still pending. ESR/CRP are elevated. He is on iv antibiotics. He was started on methadone for withdrawal symptoms which have improved. He is still complaining of diarrhea. Stool for cdif study is pending; if negative consider imodium. Adal iPllai MD Hospitalist.
--- NOTE | 2017-11-21 15:23 | PN ---
Copied To: Ty Will MD Attending MD: Ty Will MD DATE: 11/21/2017 SUBJECTIVE: The patient is in bed, in no acute distress, nontoxic. PHYSICAL EXAMINATION: VITAL SIGNS: On exam, temperature is 98. The patient did have a temperature of 100.3 yesterday, but has been afebrile since with a blood pressure of 102/70, respiratory rate of 18. HEENT: Examination of HEENT is unremarkable. NECK: Supple. LUNGS: Have decreased breath sounds. HEART: Normal S1, S2. ABDOMEN: Soft, nontender. No organomegaly. No rebound. No guarding. No masses. LABORATORY DATA: Laboratory examination reveals a white count of 18,100 and hemoglobin of 9. Chemistries are noted. Urinalysis is noted. Microbiology reveals MRSA in the blood and a gram-negative in the blood. MRSA [facility] to vancomycin is 1. Repeat blood cultures from 11/18/2017 are no growth. Review of orders reveals the patient to be on vancomycin and Zosyn. The patient had an echo. Mitral valve is moderately thickened, but no vegetation is seen. ASSESSMENT AND PLAN: A 47-year-old male seen in [facility], bed 2 with sepsis with methicillin-resistant Staphylococcus aureus and a gram-negative clay bacteremia with the right hand and skin and skin structure, must rule out endocarditis in a patient who is an intravenous drug abuser, has hepatitis C, on vancomycin and Zosyn. Awaiting for the identification of gram-negative clay. Human immunodeficiency virus is negative. We will check on a sedimentation rate and C-reactive protein is elevated 195. Today is day #4, will need at least 14-21 days of antibiotics and vancomycin trough between 15 and 20. Vancomycin trough level from yesterday is 9.9, although the repeat cultures are negative so far. Ty Will MD
--- NOTE | 2017-11-21 23:13 | CON ---
Copied To: Yomaira Perry MD Attending MD: Yomaira Perry MD DATE: 11/21/2017 HISTORY OF PRESENT ILLNESS: Patient is a 47-year-old male with a long history of IV heroin use, whom Psychiatry is seeing for delirium. I met with patient at bedside yesterday. He continues to be disoriented, confused and difficult to maintain a productive conversation with. Dr. Lindsey, has similar observations for her 2 visits with him as well. However, this morning patient has demonstrated remarkable improvement in mental status, although he does not remember me from yesterday's visit. He is alert and well oriented to month, year and location and superficially to circumstances. He can engage and communicate actively. He is coherent, he is not hallucinating and his responses were consistent. He denies having any depression or profound anxiety symptoms. He is future oriented. He denies hallucinations and delusions were not elicited. Patient reports the only pain that he is experiencing is related to his chronic back pain at this time. Staff notes indicate that he has been in good control in the last 24 hours and no behavioral issues. Vital signs and labs were reviewed. MEDICATIONS: Relevant psychiatric medications include Ativan 1 mg IV every 6 scheduled and IV q. 6 hours p.r.n., methadone, Seroquel 50 mg at bedtime, Geodon 20 mg IM every 6 hours p.r.n., last dose was 2 days ago. IMPRESSION: Resolving delirium. Patient is much improved at this time and much more predictable. RECOMMENDATIONS: At this time, the provider has no new psychiatric recommendations. Patient's delirium appears to be resolving or has been resolved. improved and demonstrates great improvement from previous visits by psychiatrist at bedside in the last three days. Psychiatry will sign off at this time. Please consult as needed if there are any further symptoms or issues. Patient is psychiatrically cleared. Yomaira Perry MD
--- NOTE | 2017-11-22 06:11 | CP.PCM.PN ---
<Sean Tellez - Last Filed: 11/22/17 19:41> Subjective - Date & Time of Evaluation Date of Evaluation: 11/22/17 Time of Evaluation: 05:50 - Subjective Subjective: Sean Tellez PGY-1 Internal Medicine Resident, Medicine progress note for Dr Pillai. -Complains of lower back and left leg pain/swelling in upper thigh region -States hand pain and swelling has improved since being admitted, increased mobility of right hand Objective - Vital Signs/Intake and Output Vital Signs (last 24 hours): Temp Pulse Resp BP Pulse Ox 99.6 F 70 20 103/57 L 95 11/21/17 21:58 11/21/17 21:58 11/21/17 21:58 11/21/17 21:58 11/21/17 21:58 - Medications Medications: Current Medications Acetaminophen (Tylenol 325mg Tab) 325 mg PO Q4 PRN PRN Reason: Fever >100.4 F Last Admin: 11/20/17 00:55 Dose: 325 mg Clonidine HCl (Catapres) 0.1 mg PO Q8H PRN PRN Reason: Withdrawal symptoms Cyclobenzaprine HCl (Flexeril) 5 mg PO TID [facility] Last Admin: 11/21/17 17:43 Dose: 5 mg Enoxaparin Sodium (Lovenox) 40 mg SC DAILY [facility] PRN Reason: Protocol Last Admin: 11/21/17 09:27 Dose: 40 mg Ferrous Sulfate (Feosol) 324 mg PO BID [facility] Last Admin: 11/21/17 17:43 Dose: 324 mg Hydroxyzine HCl (Atarax) 25 mg PO Q8H PRN PRN Reason: Anxiety Vancomycin HCl (Vancomycin 1gm) 1 gm in 250 mls @ 133.333 mls/hr IVPB Q12 [facility] PRN Reason: Protocol Last Admin: 11/21/17 22:32 Dose: 133.333 mls/hr Piperacillin Sod/Tazobactam Sod (Zosyn 3.375 In Ns 100ml) 100 mls @ 200 mls/hr IV Q6 [facility] PRN Reason: Protocol Stop: 11/25/17 12:01 Last Admin: 11/21/17 23:31 Dose: 200 mls/hr Ketorolac Tromethamine (Toradol) 15 mg IVP Q6H PRN PRN Reason: Pain, moderate (4-7) Last Admin: 11/22/17 02:18 Dose: 15 mg Ketorolac Tromethamine (Toradol) 30 mg IVP Q6H PRN PRN Reason: Pain, severe (8-10) Last Admin: 11/21/17 03:05 Dose: 30 mg Lidocaine (Lidoderm) 1 ea TD DAILY [facility] Last Admin: 11/21/17 09:29 Dose: 1 ea Lorazepam (Ativan) 1 mg IVP Q8H [facility] PRN Reason: Protocol Last Admin: 11/21/17 22:31 Dose: Not Given Lorazepam (Ativan) 1 mg IVP Q8H PRN; Protocol PRN Reason: Symptoms of alcohol withdrawl Methadone HCl (Methadone) 10 mg PO DAILY [facility] Stop: 11/22/17 10:01 Methadone HCl (Methadone) 5 mg PO DAILY [facility] Stop: 11/23/17 10:01 Ondansetron HCl (Zofran Inj) 4 mg IVP Q6H PRN PRN Reason: Nausea/Vomiting Last Admin: 11/19/17 07:40 Dose: 4 mg Quetiapine Fumarate (Seroquel) 50 mg PO HS [facility] PRN Reason: Protocol Last Admin: 11/21/17 21:26 Dose: 50 mg Tramadol HCl (Ultram) 50 mg PO ONCE PRN PRN Reason: pls give 30mins before MRI Ziprasidone (Geodon Inj) 20 mg IM Q6H PRN; Protocol PRN Reason: severe agitaiton/psychosis Last Admin: 11/19/17 15:25 Dose: 20 mg - Labs Labs: 11/21/17 07:50 11/21/17 07:50 - Constitutional Appears: Non-toxic, No Acute Distress - Head Exam Head Exam: ATRAUMATIC, NORMAL INSPECTION, NORMOCEPHALIC - Eye Exam Eye Exam: EOMI - ENT Exam ENT Exam: Mucous Membranes Moist - Neck Exam Neck Exam: Full ROM - Respiratory Exam Respiratory Exam: Clear to Ausculation Bilateral, NORMAL BREATHING PATTERN. absent: Accessory Muscle Use, Rales, Stridor - Cardiovascular Exam Cardiovascular Exam: REGULAR RHYTHM, RRR, +S1, +S2. absent: JVD - GI/Abdominal Exam GI & Abdominal Exam: Soft, Normal Bowel Sounds. absent: Distended, Firm, Guarding, Rigid, Tenderness - Extremities Exam Extremities Exam: absent: Normal Inspection (right hand swelling, decreased moblity of digits, unable to extend left lower extremity fully) Additional comments: right hand still warm, swollen, but improving. - Neurological Exam Neurological Exam: Alert, Awake, CN II-XII Intact - Psychiatric Exam Psychiatric exam: Normal Affect, Normal Mood - Skin Skin Exam: Normal Color, Warm Assessment and Plan - Assessment and Plan (Free Text) Assessment: This 47 year old male with PMH of daily IV drug abuse, Hep C, substance abuse, hyperlipidemia, and carpal tunnel who is admitted for right wrist pain with swelling and opioid withdrawal symptoms. Plan: Right wrist pain - Need to r/o cellulitis vs. osteomyelitis vs fracture vs septic arthritis - MRI w/o contrast of wrist - Pending - Rule out osteomylitis - WBC still elevated - Vancomyicn - day 5 - Zosyn - Day 5 - ID Following, Dr. Deshpande - Orthopedic surgery, Dr. Castro, appreciate recommendations MRSA Bacteremia - Blood culture 11/17 positive for MRSA sensitive to vancomycin, Blood culture 1 tube also positive for gram negative clay - Repeat blood 11/18 cultures 2/2 negative up to date - 2D echo - EF of 59.9%; No vegetation however mitral valve thickening noted * will discuss with ID regarding need for MITUL or repeat TTE - C/w antibiotics, zosyn 3.375mg q6h and vanco 1g q12h; - Contact precautions - ID Following, Dr Will/Dr Deshpande Lumbar tenderness, Chronic - Lumbar spine MRI: no evidence of osteomylitis - C/w Toradol 30mg IV Q6 PRN for severe pain and Toradol 15mg IV Q6 PRN for moderate pain - Lidocaine patch and Flexeril 5 mg tid - PT ordered Diarrhea, Resolved: Opiate withdrawal. probable CDIFF Ag/Ab - negative Opioid withdrawal symtoms symptoms have greatly improved, continue to monitor Cocaine Abuse - UDS positive for cocaine - Avoid beta-blockers Microcytic Anemia - Hgb: 8.6, MCV: 69.7 - Iron studies showed iron was low (20), TIBC was low (244), and % saturation was low (8), ferritin was within normal limits - C/w Feosol 324 mg bid - Hemoglobinopathy results revealed Hct, Hgb, MCV, MCH, RDW decreased DVT prophylaxis: lovenox 40 mg Dispostion: Continued inpatient management at this time for Opiate withdrawal symptoms as well as possible septic joint Patient was seen, examined, and discussed w/ attending physician Dr. Rosas Tellez PGY-1 Internal Medicine resident <Adal Pillai - Last Filed: 11/23/17 07:32> Objective - Vital Signs/Intake and Output Vital Signs (last 24 hours): Temp Pulse Resp BP Pulse Ox 98.6 F 93 H 20 106/67 94 L 11/22/17 22:12 11/22/17 22:12 11/22/17 22:12 11/22/17 22:12 11/22/17 22:12 Intake and Output: 11/23/17 11/23/17 06:59 18:59 Intake Total 1020 Output Total 400 Balance 620 - Medications Medications: Current Medications Acetaminophen (Tylenol 325mg Tab) 325 mg PO Q4 PRN PRN Reason: Fever >100.4 F Last Admin: 11/22/17 13:51 Dose: 325 mg Albuterol/Ipratropium (Duoneb 3 Mg/0.5 Mg (3 Ml) Ud) 3 ml IH [id number] [facility] Last Admin: 11/23/17 02:33 Dose: 3 ml Albuterol/Ipratropium (Duoneb 3 Mg/0.5 Mg (3 Ml) Ud) 3 ml IH Q4H PRN PRN Reason: Shortness of Breath Clonidine HCl (Catapres) 0.1 mg PO Q8H PRN PRN Reason: Withdrawal symptoms Cyclobenzaprine HCl (Flexeril) 5 mg PO TID [facility] Last Admin: 11/22/17 17:15 Dose: 5 mg Enoxaparin Sodium (Lovenox) 40 mg SC DAILY [facility] PRN Reason: Protocol Last Admin: 11/22/17 10:59 Dose: 40 mg Ferrous Sulfate (Feosol) 324 mg PO BID [facility] Last Admin: 11/22/17 17:15 Dose: 324 mg Guaifenesin/Dextromethorphan (Robitussin Dm) 10 ml PO Q4H PRN PRN Reason: Cough Hydroxyzine HCl (Atarax) 25 mg PO Q8H PRN PRN Reason: Anxiety Vancomycin HCl (Vancomycin 1gm) 1 gm in 250 mls @ 133.333 mls/hr IVPB Q12 [facility] PRN Reason: Protocol Last Admin: 11/22/17 22:37 Dose: 133.333 mls/hr Piperacillin Sod/Tazobactam Sod (Zosyn 3.375 In Ns 100ml) 100 mls @ 200 mls/hr IV Q6 [facility] PRN Reason: Protocol Stop: 11/25/17 12:01 Last Admin: 11/22/17 23:38 Dose: 200 mls/hr Ketorolac Tromethamine (Toradol) 15 mg IVP Q6H PRN PRN Reason: Pain, moderate (4-7) Last Admin: 11/22/17 22:45 Dose: 15 mg Ketorolac Tromethamine (Toradol) 30 mg IVP Q6H PRN PRN Reason: Pain, severe (8-10) Last Admin: 11/21/17 03:05 Dose: 30 mg Lidocaine (Lidoderm) 1 ea TD DAILY [facility] Last Admin: 11/22/17 10:58 Dose: 1 ea Lorazepam (Ativan) 1 mg IVP Q8H [facility] PRN Reason: Protocol Last Admin: 11/23/17 04:26 Dose: 1 mg Lorazepam (Ativan) 1 mg IVP Q8H PRN; Protocol PRN Reason: Symptoms of alcohol withdrawl Methadone HCl (Methadone) 5 mg PO DAILY [facility] Stop: 11/23/17 10:01 Ondansetron HCl (Zofran Inj) 4 mg IVP Q6H PRN PRN Reason: Nausea/Vomiting Last Admin: 11/19/17 07:40 Dose: 4 mg Quetiapine Fumarate (Seroquel) 50 mg PO HS [facility] PRN Reason: Protocol Last Admin: 11/22/17 22:37 Dose: 50 mg Tramadol HCl (Ultram) 50 mg PO ONCE PRN PRN Reason: pls give 30mins before MRI Last Admin: 11/22/17 09:49 Dose: 50 mg Ziprasidone (Geodon Inj) 20 mg IM Q6H PRN; Protocol PRN Reason: severe agitaiton/psychosis Last Admin: 11/19/17 15:25 Dose: 20 mg - Labs Labs: 11/22/17 06:30 11/22/17 06:30 Attending/Attestation - Attestation I have personally seen and examined this patient.: Yes I have fully participated in the care of the patient.: Yes I have reviewed all pertinent clinical information, including history, physical exam and plan: Yes Notes (Text): 11/22/17 47 year old male with past medical history of hepatitis C, substance abuse, and IVDA who presented with complaint of right wrist pain and swelling and back pain. ESR / CRP were elevated. Blood cultures were positive for MRSA x 2 and 1 bottle with klebsiella. Repeat blood cultures are negative to date. Echocardiogram showed thickened mitral valve but negative for vegetations. Will follow up with ID recommendations. Continue with iv antibiotics. Orthopedics evaluation was requested; is aware of consult and awaiting MRI of wrist study. MRI of spine was negative for osteomyelitis. MRI wrist was not able to be obtained yesterday because patient was unable to tolerated lying on his stomache due to wheezing. Duonebs was started; will try again. He was started on methadone for withdrawal symptoms which have improved. He was complaining of diarrhea which is improved. Stool for cdif study was negative. Adal Pillai MD Hospitalist.
[2017-11-22] MEDS: Piperacillin/Tazobact 3.375 gm 100 ML IV SCH ×4 (06:34→23:38)
[2017-11-22 07:04] LABS: BASO # 0.03 K/mm3 (0.0-2.0); BASO % 0.2 % (0.0-3.0); EOS # 0.3 (0.0-0.7); EOS % 1.8 % (1.5-5.0); GRAN # 13.1 (1.4-6.5); GRAN % 75.7 % (50.0-68.0); HEMOGLOBIN 8.6 g/dL (14.0-18.0); LYMPH # 2.7 (1.2-3.4); LYMPH % 15.5 % (22.0-35.0); MEAN CELL VOLUME 69.7 fl (80.0-105.0); MEAN CORPUSCULAR HEMOGLOBIN 22.5 pg (25.0-35.0); MEAN CORPUSCULAR HGB CONC 32.2 g/dl (31.0-37.0); MEAN PLATELET VOLUME 8.6 fl (7.0-11.0); MONO # 1.2 (0.1-0.6); MONO % 6.8 % (1.0-6.0); RBC 3.83 10^6/uL (3.5-6.1); RED CELL DISTRIBUTION WIDTH 16.8 % (11.5-14.5); WHITE BLOOD COUNT 17.3 10^3/ul (4.5-11.0)
[2017-11-22 07:27] LABS: ALB/GLOB RATIO 0.6 (1.1-1.8); ALBUMIN 2.5 g/dL (3.0-4.8); ALT/SGPT 55 U/L (7-56); AST/SGOT 85 U/L (17-59); BLOOD UREA NITROGEN 13 mg/dL (7-21); CALCIUM 8.4 mg/dL (8.4-10.5); GFR NON-AFRICAN AMERICAN > 60
--- NOTE | 2017-11-22 08:11 | CON ---
Copied To: Yomaira Perry MD Attending MD: Yomaira Perry MD DATE: 11/20/2017 HISTORY OF PRESENT ILLNESS: The patient is a 47-year-old male with long history of IV heroin abuse. Psychiatry is following on the medical floor due to multifactorial delirium. I reviewed Dr. Lindsey's notes and met with the patient at bedside. I also reviewed recent staff notes. The patient continues to be disoriented and labile. He believes that it is 04/17/2017 his day. At this time, he is aware of the current year and he is also aware that he is in the hospital. His focus is inconsistent during the course of our questioning. He appears confused and tired. I agree with Dr. Lindsey that he is a poor and unreliable historian due to his delirium and we continued monitoring for his own safety. He does not have capacity to sign out AMA . The patient does not look to be hallucinating at this time and there was no agitation noted overnight. He denies any acute discomfort and I think he is grateful about my attempt to orient him to current circumstances and to reassure him about his safety. His insight and judgment seemed to be impaired. RELEVANT PSYCHIATRIC MEDICATIONS: Include Ativan 1 mg IV as scheduled as well as Ativan 1 mg IV every 6 p.r.n., methadone 15 mg p.o. daily, Seroquel 50 mg at bedtime and Geodon 40 mg IM every 6. Labs and vitals were reviewed. IMPRESSION: Multifactorial delirium. I am in agreement with Dr. Lindsey. The patient has multiple etiologies of his delirium at this time including withdrawal from opiates as well as infection. PLAN: We will continue with current medications at this time. There are no acute medication changes . I will continue to follow the patient. Monitor his mental status and tolerance to medications as well. Yomaira Perry MD
[2017-11-22] MEDS: Lidocaine 5% Patch TD SCH (10:58)
[2017-11-22] MEDS: Vancomycin 1gm in NS 250ml 1 GM/250 ML BAG IVPB SCH ×2 (10:59→22:37)
[2017-11-22] MEDS: Enoxaparin 40 mg Syringe SC SCH (10:59)
[2017-11-22] MEDS ORDERED: guaiFENesin DM 200 mg-20 mg/10 ml UD PO PRN (11:17)
[2017-11-22] MEDS ORDERED: Albuterol-Ipratrop 3 mg / 0.5 (3 ml) UD IH PRN (11:18)
--- NOTE | 2017-11-22 13:13 | MRI ---
Date of service: 11/21/2017 PROCEDURE: MR LUMBAR SPINE WITHOUT CONTRAST HISTORY: Sepsis. Rule out infection COMPARISON: None available. TECHNIQUE: Multiecho multiplanar sequences were performed through the lumbar spine without the use of intravenous contrast. FINDINGS: Normal lumbar lordosis. Vertebral body heights are preserved. There is no evidence of discitis or osteomyelitis. Conus medullaris unremarkable at the level of T12 The spinal canal is large in diameter. There is mild disc degeneration at L3-4 and L1-2. There is no evidence of disc space infection. The study was limited to the sagittal and coronal plane only. The patient could not cooperate with any further scanning. IMPRESSION: No evidence of osteomyelitis or discitis
[2017-11-22] MEDS: Albuterol-Ipratrop 3 mg / 0.5 (3 ml) UD IH SCH ×2 (14:00→20:27)
--- NOTE | 2017-11-23 01:06 | PN ---
Copied To: Ty Will MD Attending MD: Ty iWll MD DATE: 11/22/2017 SUBJECTIVE: The patient is in bed, in no acute distress. PHYSICAL EXAMINATION: VITAL SIGNS: He is having fevers of 101.5, blood pressure is 109/70, respiratory 20, heart rate of 73. HEENT: Examination of HEENT is unremarkable. NECK: Supple. LUNGS: Have decreased breath sounds. HEART: Normal S1, S2. ABDOMEN: Soft. LABORATORY DATA: Laboratory examination reveals a white count of 17,000, hemoglobin of 8, platelets of 479. Chemistries reveals a BUN of 13, creatinine of 0.8 and urinalysis is noted and HIV is nonreactive. Microbiology reveals MRSA in the blood cultures and there is Klebsiella pneumonia also on the blood cultures. The Klebsiella pneumonia is relatively sensitive to ceftriaxone. The MRSA has vancomycin MERCY of 1. The repeat blood cultures are negative. The stool for C. Diff is negative toxin and antigen. Review of orders reveals the patient to be on vancomycin and Zosyn. The patient is scheduled for MRI of the wrist which he had, which revealed no evidence of osteomyelitis or disc disease of the spine on MRI of the spine, lumbar without contrast. Dr. Tellez's note is reviewed. ASSESSMENT AND PLAN: A 47-year-old male with sepsis with methicillin-resistant Staphylococcus aureus and Klebsiella bacteremia in an intravenous drug abuser and elevated sed rate, today is day #5 of antibiotics since the cultures have been negative, on vancomycin and meropenem, day #5. The patient did have an echo on 11/19/2017 which no vegetations were seen. We will check on the MRI of the wrist results and we will make further recommendations. Repeat blood cultures are negative from 11/18/2017, which makes today, day #5 of antibiotics. Will need at least 14 to 21 days, perhaps longer, with a weekly CBC, SMA-18. sed rate, C-reactive protein. Ty Will MD
[2017-11-23] MEDS: Albuterol-Ipratrop 3 mg / 0.5 (3 ml) UD IH SCH ×4 (02:33→20:45)
--- NOTE | 2017-11-23 06:00 | CP.PCM.PN ---
Subjective - Date & Time of Evaluation Date of Evaluation: 11/23/17 Time of Evaluation: 05:45 - Subjective Subjective: Sean Tellez PGY-1, Medicine progress note for Dr Pillai. Pt seen and examined at bedside this morning. Pt reports wrist pain has greatly improved, but still complains of back pain. Pt denies diarrhea, nausea, or vomiting. Objective - Vital Signs/Intake and Output Vital Signs (last 24 hours): Temp Pulse Resp BP Pulse Ox 98.6 F 93 H 20 106/67 94 L 11/22/17 22:12 11/22/17 22:12 11/22/17 22:12 11/22/17 22:12 11/22/17 22:12 Intake and Output: 11/22/17 11/23/17 18:59 06:59 Intake Total 840 540 Output Total 1300 400 Balance -460 140 - Medications Medications: Current Medications Acetaminophen (Tylenol 325mg Tab) 325 mg PO Q4 PRN PRN Reason: Fever >100.4 F Last Admin: 11/22/17 13:51 Dose: 325 mg Albuterol/Ipratropium (Duoneb 3 Mg/0.5 Mg (3 Ml) Ud) 3 ml IH [id number] [facility] Last Admin: 11/23/17 02:33 Dose: 3 ml Albuterol/Ipratropium (Duoneb 3 Mg/0.5 Mg (3 Ml) Ud) 3 ml IH Q4H PRN PRN Reason: Shortness of Breath Clonidine HCl (Catapres) 0.1 mg PO Q8H PRN PRN Reason: Withdrawal symptoms Cyclobenzaprine HCl (Flexeril) 5 mg PO TID [facility] Last Admin: 11/22/17 17:15 Dose: 5 mg Enoxaparin Sodium (Lovenox) 40 mg SC DAILY [facility] PRN Reason: Protocol Last Admin: 11/22/17 10:59 Dose: 40 mg Ferrous Sulfate (Feosol) 324 mg PO BID [facility] Last Admin: 11/22/17 17:15 Dose: 324 mg Guaifenesin/Dextromethorphan (Robitussin Dm) 10 ml PO Q4H PRN PRN Reason: Cough Hydroxyzine HCl (Atarax) 25 mg PO Q8H PRN PRN Reason: Anxiety Vancomycin HCl (Vancomycin 1gm) 1 gm in 250 mls @ 133.333 mls/hr IVPB Q12 [facility] PRN Reason: Protocol Last Admin: 11/22/17 22:37 Dose: 133.333 mls/hr Piperacillin Sod/Tazobactam Sod (Zosyn 3.375 In Ns 100ml) 100 mls @ 200 mls/hr IV Q6 [facility] PRN Reason: Protocol Stop: 11/25/17 12:01 Last Admin: 11/22/17 23:38 Dose: 200 mls/hr Ketorolac Tromethamine (Toradol) 15 mg IVP Q6H PRN PRN Reason: Pain, moderate (4-7) Last Admin: 11/22/17 22:45 Dose: 15 mg Ketorolac Tromethamine (Toradol) 30 mg IVP Q6H PRN PRN Reason: Pain, severe (8-10) Last Admin: 11/21/17 03:05 Dose: 30 mg Lidocaine (Lidoderm) 1 ea TD DAILY [facility] Last Admin: 11/22/17 10:58 Dose: 1 ea Lorazepam (Ativan) 1 mg IVP Q8H [facility] PRN Reason: Protocol Last Admin: 11/23/17 04:26 Dose: 1 mg Lorazepam (Ativan) 1 mg IVP Q8H PRN; Protocol PRN Reason: Symptoms of alcohol withdrawl Methadone HCl (Methadone) 5 mg PO DAILY [facility] Stop: 11/23/17 10:01 Ondansetron HCl (Zofran Inj) 4 mg IVP Q6H PRN PRN Reason: Nausea/Vomiting Last Admin: 11/19/17 07:40 Dose: 4 mg Quetiapine Fumarate (Seroquel) 50 mg PO HS [facility] PRN Reason: Protocol Last Admin: 11/22/17 22:37 Dose: 50 mg Tramadol HCl (Ultram) 50 mg PO ONCE PRN PRN Reason: pls give 30mins before MRI Last Admin: 11/22/17 09:49 Dose: 50 mg Ziprasidone (Geodon Inj) 20 mg IM Q6H PRN; Protocol PRN Reason: severe agitaiton/psychosis Last Admin: 11/19/17 15:25 Dose: 20 mg - Labs Labs: 11/22/17 06:30 11/22/17 06:30 - Constitutional Appears: No Acute Distress - Head Exam Head Exam: ATRAUMATIC, NORMOCEPHALIC - Eye Exam Eye Exam: EOMI - ENT Exam ENT Exam: Mucous Membranes Moist - Neck Exam Neck Exam: Full ROM - Respiratory Exam Respiratory Exam: Clear to Ausculation Bilateral, NORMAL BREATHING PATTERN. absent: Accessory Muscle Use, Rhonchi, Wheezes, Respiratory Distress, Stridor - Cardiovascular Exam Cardiovascular Exam: REGULAR RHYTHM, RRR, +S1, +S2. absent: Bradycardia, Tachycardia, Diastolic murmur, Irregular Rhythm, JVD - GI/Abdominal Exam GI & Abdominal Exam: Soft, Normal Bowel Sounds. absent: Distended, Firm, Guarding, Rigid, Tenderness - Neurological Exam Neurological Exam: Alert, Awake - Psychiatric Exam Psychiatric exam: Normal Affect, Normal Mood - Skin Skin Exam: Erythema Additional comments: right hand increased ROM from yesterday, pt reports less pain Assessment and Plan - Assessment and Plan (Free Text) Assessment: This is 47 year old male with PMH of daily IV drug abuse, Hep C, substance abuse, hyperlipidemia, and carpal tunnel who is admitted for right wrist pain with swelling and opioid withdrawal symptoms. Plan: Right wrist pain - MRI w/o contrast of wrist - no evidence of osteomylitis - WBC still elevated, 15 - Continue: Vancomyicn, Zosyn - ID Following, Dr. Deshpande - Orthopedic surgery, Dr. Castro, appreciate recommendations Lumbar tenderness, Chronic - MRI thoracic spine, unremarkable, no evidence of spinal abscess - D/c Toradol, Start motrin, Continue: Lidocaine patch, Flexeril - PT ordered MRSA Bacteremia - C/w Zosyn, Vanc Microcytic Anemia - Hgb: 10.7 Pt seen, examined, and assessment/plan discussed with Dr Pillai. Sean Tellez PGY-1 Internal Medicine Resident
[2017-11-23 07:06] LABS: BASO # 0.03 K/mm3 (0.0-2.0); BASO % 0.2 % (0.0-3.0); EOS # 0.3 (0.0-0.7); EOS % 1.7 % (1.5-5.0); GRAN # 11.76 (1.4-6.5); GRAN % 78.6 % (50.0-68.0); HEMOGLOBIN 10.7 g/dL (14.0-18.0); LYMPH # 2.3 (1.2-3.4); LYMPH % 15.2 % (22.0-35.0); MEAN CELL VOLUME 70.6 fl (80.0-105.0); MEAN CORPUSCULAR HEMOGLOBIN 23.1 pg (25.0-35.0); MEAN CORPUSCULAR HGB CONC 32.7 g/dl (31.0-37.0); MEAN PLATELET VOLUME 8.7 fl (7.0-11.0); MONO # 0.7 (0.1-0.6); MONO % 4.3 % (1.0-6.0); RBC 4.63 10^6/uL (3.5-6.1); RED CELL DISTRIBUTION WIDTH 16.9 % (11.5-14.5)
[2017-11-23 07:29] LABS: ALB/GLOB RATIO 0.7 (1.1-1.8); ALBUMIN 2.9 g/dL (3.0-4.8); ALT/SGPT 64 U/L (7-56); AST/SGOT 74 U/L (17-59); BLOOD UREA NITROGEN 11 mg/dL (7-21); CALCIUM 8.8 mg/dL (8.4-10.5); GFR NON-AFRICAN AMERICAN > 60
--- NOTE | 2017-11-23 09:01 | CP.PCM.PN ---
Subjective - Date & Time of Evaluation Date of Evaluation: 11/23/17 Time of Evaluation: 09:01 - Subjective Subjective: PGY3 ID Progress note for Dr. Will Objective - Vital Signs/Intake and Output Vital Signs (last 24 hours): Temp Pulse Resp BP Pulse Ox 98.6 F 93 H 20 106/67 94 L 11/22/17 22:12 11/22/17 22:12 11/22/17 22:12 11/22/17 22:12 11/22/17 22:12 Intake and Output: 11/23/17 11/23/17 06:59 18:59 Intake Total 1020 Output Total 400 Balance 620 - Medications Medications: Current Medications Acetaminophen (Tylenol 325mg Tab) 325 mg PO Q4 PRN PRN Reason: Fever >100.4 F Last Admin: 11/22/17 13:51 Dose: 325 mg Albuterol/Ipratropium (Duoneb 3 Mg/0.5 Mg (3 Ml) Ud) 3 ml IH [id number] [facility] Last Admin: 11/23/17 07:30 Dose: 3 ml Albuterol/Ipratropium (Duoneb 3 Mg/0.5 Mg (3 Ml) Ud) 3 ml IH Q4H PRN PRN Reason: Shortness of Breath Clonidine HCl (Catapres) 0.1 mg PO Q8H PRN PRN Reason: Withdrawal symptoms Cyclobenzaprine HCl (Flexeril) 5 mg PO TID [facility] Last Admin: 11/22/17 17:15 Dose: 5 mg Enoxaparin Sodium (Lovenox) 40 mg SC DAILY [facility] PRN Reason: Protocol Last Admin: 11/22/17 10:59 Dose: 40 mg Ferrous Sulfate (Feosol) 324 mg PO BID [facility] Last Admin: 11/22/17 17:15 Dose: 324 mg Guaifenesin/Dextromethorphan (Robitussin Dm) 10 ml PO Q4H PRN PRN Reason: Cough Hydroxyzine HCl (Atarax) 25 mg PO Q8H PRN PRN Reason: Anxiety Vancomycin HCl (Vancomycin 1gm) 1 gm in 250 mls @ 133.333 mls/hr IVPB Q12 [facility] PRN Reason: Protocol Last Admin: 11/22/17 22:37 Dose: 133.333 mls/hr Piperacillin Sod/Tazobactam Sod (Zosyn 3.375 In Ns 100ml) 100 mls @ 200 mls/hr IV Q6 [facility] PRN Reason: Protocol Stop: 11/25/17 12:01 Last Admin: 11/22/17 23:38 Dose: 200 mls/hr Ketorolac Tromethamine (Toradol) 15 mg IVP Q6H PRN PRN Reason: Pain, moderate (4-7) Last Admin: 11/22/17 22:45 Dose: 15 mg Ketorolac Tromethamine (Toradol) 30 mg IVP Q6H PRN PRN Reason: Pain, severe (8-10) Last Admin: 11/21/17 03:05 Dose: 30 mg Lidocaine (Lidoderm) 1 ea TD DAILY [facility] Last Admin: 11/22/17 10:58 Dose: 1 ea Lorazepam (Ativan) 1 mg IVP Q8H [facility] PRN Reason: Protocol Last Admin: 11/23/17 04:26 Dose: 1 mg Lorazepam (Ativan) 1 mg IVP Q8H PRN; Protocol PRN Reason: Symptoms of alcohol withdrawl Methadone HCl (Methadone) 5 mg PO DAILY [facility] Stop: 11/23/17 10:01 Ondansetron HCl (Zofran Inj) 4 mg IVP Q6H PRN PRN Reason: Nausea/Vomiting Last Admin: 11/19/17 07:40 Dose: 4 mg Quetiapine Fumarate (Seroquel) 50 mg PO HS [facility] PRN Reason: Protocol Last Admin: 11/22/17 22:37 Dose: 50 mg Tramadol HCl (Ultram) 50 mg PO ONCE PRN PRN Reason: pls give 30mins before MRI Last Admin: 11/22/17 09:49 Dose: 50 mg Ziprasidone (Geodon Inj) 20 mg IM Q6H PRN; Protocol PRN Reason: severe agitaiton/psychosis Last Admin: 11/19/17 15:25 Dose: 20 mg - Labs Labs: 11/23/17 06:00 11/23/17 06:00
[2017-11-23] MEDS: Lidocaine 5% Patch TD SCH (10:08)
[2017-11-23] MEDS: Enoxaparin 40 mg Syringe SC SCH (10:09)
[2017-11-23] MEDS: Vancomycin 1gm in NS 250ml 1 GM/250 ML BAG IVPB SCH ×2 (10:10→21:15)
[2017-11-23] MEDS: Piperacillin/Tazobact 3.375 gm 100 ML IV SCH ×3 (15:11→18:58)
--- NOTE | 2017-11-23 15:18 | RAD ---
Date of service: 11/23/2017 HISTORY: fever COMPARISON: No prior. FINDINGS: LUNGS: Patchy infiltrates are seen in the right lower lobe and right middle lobe PLEURA: No significant pleural effusion identified, no pneumothorax apparent. CARDIOVASCULAR: Normal. OSSEOUS STRUCTURES: No significant abnormalities. VISUALIZED UPPER ABDOMEN: Normal. OTHER FINDINGS: None. IMPRESSION: Patchy infiltrates are seen in the right lower lobe and right middle lobe
--- NOTE | 2017-11-23 15:28 | MRI ---
Date of service: 11/23/2017 PROCEDURE: MR THORACIC SPINE WITHOUT CONTRAST HISTORY: r/o spinal lesion COMPARISON: None available. TECHNIQUE: Multiecho multiplanar sequences were performed through the thoracic spine without the use of intravenous contrast. FINDINGS: ALIGNMENT: Normal thoracic spinal alignment. Normal thoracic kyphosis. VERTEBRA: Vertebral body height are preserved. MARROW: There is a well-circumscribed lesion in the T7 vertebral body. This has high signal intensity on T2 and STIR imaging. This most likely represents a hemangioma. There is no marrow edema to suggest osteomyelitis PARASPINAL SOFT TISSUES: Unremarkable. CORD: Unremarkable thoracic cord. No volume loss, signal abnormality or syrinx. DISCS: No disc herniation, spinal canal stenosis, or neuroforaminal narrowing. OTHER FINDINGS: None. IMPRESSION: Unremarkable non-contrast enhanced MRI of the thoracic spine
--- NOTE | 2017-11-23 15:37 | MRI ---
Date of service: 11/23/2017 PROCEDURE: MRI of the right wrist without contrast HISTORY: r/o osteomyelitis COMPARISON: Plain films dated 11/17/2017 TECHNIQUE: MRI of the right wrist was performed in multiple planes using multiple pulse sequences. FINDINGS: As seen on the recent plain films there has been resection of the 1st row of carpal bones. Degenerative changes are seen especially in the distal radius. There is a moderate amount of joint fluid surrounding the distal ulna. There is a small fluid collection deep to the extensor tendons at the level of the proximal metacarpals. This collection measures 28 mm in length by 20 mm wide by 5 mm thick. This probably represents a synovial fluid collection. There is subcutaneous edema over the dorsum of the hand and wrist. There is no marrow edema to suggest osteomyelitis. IMPRESSION: No evidence of osteomyelitis. See comments
--- NOTE | 2017-11-23 18:33 | PN ---
Copied To: Ty Will MD Attending MD: Ty Will MD DATE: 11/23/2017 SUBJECTIVE: The patient is in bed, in no acute distress, nontoxic. PHYSICAL EXAMINATION VITAL SIGNS: Temperature is 98, blood pressure is 116/60, respiratory rate of 18. HEENT: Unremarkable. NECK: Supple. LUNGS: Decreased breath sounds. HEART: Normal S1 and S2. ABDOMEN: Soft, nontender. LABORATORY EXAMINATION: Reveals a white count of 15,000. Chemistries are noted and serology is noted. HIV is negative. Blood cultures, MRSA. The patient does also have Klebsiella in the blood and repeat blood cultures are negative. The patient had thoracic spine MRI and wrist MRI, the results are pending. Review of orders reveals the patient to be on Zosyn and vancomycin. ASSESSMENT AND PLAN: A 47-year-old with sepsis, an active intravenous drug abuser, methicillin-resistant Staphylococcus aureus and Klebsiella bacteremia, day #6 of antibiotics, on vancomycin and meropenem. Awaiting for MRI of the spine and MRI of the wrist and will need prolonged antibiotic therapy for at least 14 to 21 days, perhaps 28 days, pending MRI findings and clinical response. Ty Will MD
[2017-11-24] MEDS: Piperacillin/Tazobact 3.375 gm 100 ML IV SCH ×5 (00:55→22:55)
[2017-11-24] MEDS: Albuterol-Ipratrop 3 mg / 0.5 (3 ml) UD IH SCH ×4 (02:55→20:04)
--- NOTE | 2017-11-24 05:33 | CP.PCM.PN ---
<Sean Tellez - Last Filed: 11/24/17 14:26> Subjective - Date & Time of Evaluation Date of Evaluation: 11/24/17 Time of Evaluation: 05:30 - Subjective Subjective: Sean Tellez PGY-[address] Yoon, covering for Dr Pillai. Pt seen and examined this morning at bedside. Pt states wrist pain and swelling are improving. Pt reports left sided back pain. Objective - Vital Signs/Intake and Output Vital Signs (last 24 hours): Temp Pulse Resp BP Pulse Ox 98.9 F 77 18 128/76 100 11/23/17 21:35 11/23/17 21:35 11/23/17 21:35 11/23/17 21:35 11/23/17 21:35 Intake and Output: 11/23/17 11/24/17 18:59 06:59 Intake Total 1320 Output Total 1600 Balance -280 - Medications Medications: Current Medications Acetaminophen (Tylenol 325mg Tab) 325 mg PO Q4 PRN PRN Reason: Fever >100.4 F Last Admin: 11/23/17 19:05 Dose: 325 mg Albuterol/Ipratropium (Duoneb 3 Mg/0.5 Mg (3 Ml) Ud) 3 ml IH [id number] [facility] Last Admin: 11/24/17 02:55 Dose: 3 ml Albuterol/Ipratropium (Duoneb 3 Mg/0.5 Mg (3 Ml) Ud) 3 ml IH Q4H PRN PRN Reason: Shortness of Breath Clonidine HCl (Catapres) 0.1 mg PO Q8H PRN PRN Reason: Withdrawal symptoms Cyclobenzaprine HCl (Flexeril) 5 mg PO TID [facility] Last Admin: 11/23/17 18:45 Dose: 5 mg Enoxaparin Sodium (Lovenox) 40 mg SC DAILY [facility] PRN Reason: Protocol Last Admin: 11/23/17 10:09 Dose: 40 mg Ferrous Sulfate (Feosol) 324 mg PO BID [facility] Last Admin: 11/23/17 18:45 Dose: 324 mg Guaifenesin/Dextromethorphan (Robitussin Dm) 10 ml PO Q4H PRN PRN Reason: Cough Hydroxyzine HCl (Atarax) 25 mg PO Q8H PRN PRN Reason: Anxiety Vancomycin HCl (Vancomycin 1gm) 1 gm in 250 mls @ 133.333 mls/hr IVPB Q12 [facility] PRN Reason: Protocol Last Admin: 11/23/17 21:15 Dose: 133.333 mls/hr Piperacillin Sod/Tazobactam Sod (Zosyn 3.375 In Ns 100ml) 100 mls @ 200 mls/hr IV Q6 [facility] PRN Reason: Protocol Stop: 11/25/17 12:01 Last Admin: 11/24/17 00:55 Dose: 200 mls/hr Ibuprofen (Motrin Tab) 600 mg PO Q6H PRN PRN Reason: Pain, severe (8-10) Lidocaine (Lidoderm) 1 ea TD DAILY [facility] Last Admin: 11/23/17 10:08 Dose: 1 ea Lorazepam (Ativan) 1 mg IVP Q8H [facility] PRN Reason: Protocol Last Admin: 11/24/17 03:29 Dose: 1 mg Lorazepam (Ativan) 1 mg IVP Q8H PRN; Protocol PRN Reason: Symptoms of alcohol withdrawl Ondansetron HCl (Zofran Inj) 4 mg IVP Q6H PRN PRN Reason: Nausea/Vomiting Last Admin: 11/19/17 07:40 Dose: 4 mg Quetiapine Fumarate (Seroquel) 50 mg PO HS [facility] PRN Reason: Protocol Last Admin: 11/23/17 21:12 Dose: 50 mg Tramadol HCl (Ultram) 50 mg PO ONCE PRN PRN Reason: pls give 30mins before MRI Last Admin: 11/22/17 09:49 Dose: 50 mg Ziprasidone (Geodon Inj) 20 mg IM Q6H PRN; Protocol PRN Reason: severe agitaiton/psychosis Last Admin: 11/19/17 15:25 Dose: 20 mg - Labs Labs: 11/23/17 06:00 11/23/17 06:00 - Constitutional Appears: No Acute Distress - Head Exam Head Exam: ATRAUMATIC - Eye Exam Eye Exam: EOMI - ENT Exam ENT Exam: Mucous Membranes Moist - Neck Exam Neck Exam: Full ROM - Respiratory Exam Respiratory Exam: Clear to Ausculation Bilateral, NORMAL BREATHING PATTERN. absent: Accessory Muscle Use, Rales, Wheezes, Respiratory Distress, Stridor - Cardiovascular Exam Cardiovascular Exam: REGULAR RHYTHM, RRR, +S1, +S2. absent: Diastolic murmur, JVD, Murmur - GI/Abdominal Exam GI & Abdominal Exam: Soft, Normal Bowel Sounds. absent: Guarding, Rigid, Tenderness - Back Exam Back Exam: absent: CVA tenderness (L), CVA tenderness (R) Additional comments: left sided, low back pain - Neurological Exam Neurological Exam: Alert, Awake, Oriented x3 - Psychiatric Exam Psychiatric exam: Normal Affect, Normal Mood - Skin Skin Exam: Dry, Normal Color, Warm Assessment and Plan - Assessment and Plan (Free Text) Assessment: This is 47 year old male with PMH of daily IV drug abuse, Hep C, substance abuse, hyperlipidemia, and carpal tunnel who is admitted for right wrist pain with swelling and opioid withdrawal symptoms. Plan: Right wrist pain - ID, Dr. Deshpande - Orthopedic surgery, Dr. Castro - MRI wrist: no evidence of osteomylitis - WBC 18 Intractable Back Pain - Neurosurgery consulted, Dr. Shearer - MRI thoracic/ lumbar spine: no evidence of spinal abscess - Continue Motrin, Lidocaine patch, Flexeril, Tramadol - PT ordered Endocarditis Rule out - ECHO mitral valve moderately thickening - cardio consulted, Dr Goyal - MITUL ordered MRSA Bacteremia - Continue Zosyn, Vanc Microcytic Anemia - Hgb: 10.2 - Continue to monitor Pt seen, examined, and assessment/plan discussed with Dr Karrie Tellez PGY-1 Internal Medicine Resident <Andrea Yoon - Last Filed: 11/24/17 14:51> Objective - Vital Signs/Intake and Output Vital Signs (last 24 hours): Temp Pulse Resp BP Pulse Ox 99 F 80 20 102/56 L 97 11/24/17 06:00 11/24/17 06:00 11/24/17 06:00 11/24/17 06:00 11/24/17 06:00 Intake and Output: 11/24/17 11/24/17 06:59 18:59 Intake Total 720 Balance 720 - Medications Medications: Current Medications Acetaminophen (Tylenol 325mg Tab) 325 mg PO Q4 PRN PRN Reason: Fever >100.4 F Last Admin: 11/23/17 19:05 Dose: 325 mg Albuterol/Ipratropium (Duoneb 3 Mg/0.5 Mg (3 Ml) Ud) 3 ml IH [id number] [facility] Last Admin: 11/24/17 14:03 Dose: 3 ml Albuterol/Ipratropium (Duoneb 3 Mg/0.5 Mg (3 Ml) Ud) 3 ml IH Q4H PRN PRN Reason: Shortness of Breath Clonidine HCl (Catapres) 0.1 mg PO Q8H PRN PRN Reason: Withdrawal symptoms Cyclobenzaprine HCl (Flexeril) 5 mg PO TID [facility] Last Admin: 11/24/17 09:48 Dose: 5 mg Enoxaparin Sodium (Lovenox) 40 mg SC DAILY [facility] PRN Reason: Protocol Last Admin: 11/24/17 09:48 Dose: 40 mg Ferrous Sulfate (Feosol) 324 mg PO BID [facility] Last Admin: 11/24/17 09:48 Dose: 324 mg Guaifenesin/Dextromethorphan (Robitussin Dm) 10 ml PO Q4H PRN PRN Reason: Cough Hydroxyzine HCl (Atarax) 25 mg PO Q8H PRN PRN Reason: Anxiety Vancomycin HCl (Vancomycin 1gm) 1 gm in 250 mls @ 133.333 mls/hr IVPB Q12 [facility] PRN Reason: Protocol Last Admin: 11/24/17 09:48 Dose: 133.333 mls/hr Piperacillin Sod/Tazobactam Sod (Zosyn 3.375 In Ns 100ml) 100 mls @ 200 mls/hr IV Q6 [facility] PRN Reason: Protocol Stop: 11/25/17 12:01 Last Admin: 11/24/17 12:40 Dose: 200 mls/hr Ibuprofen (Motrin Tab) 600 mg PO Q6H PRN PRN Reason: Pain, severe (8-10) Last Admin: 11/24/17 13:33 Dose: 600 mg Lidocaine (Lidoderm) 1 ea TD DAILY [facility] Last Admin: 11/24/17 10:03 Dose: Not Given Lorazepam (Ativan) 1 mg IVP Q8H [facility] PRN Reason: Protocol Last Admin: 11/24/17 12:30 Dose: 1 mg Lorazepam (Ativan) 1 mg IVP Q8H PRN; Protocol PRN Reason: Symptoms of alcohol withdrawl Ondansetron HCl (Zofran Inj) 4 mg IVP Q6H PRN PRN Reason: Nausea/Vomiting Last Admin: 11/19/17 07:40 Dose: 4 mg Quetiapine Fumarate (Seroquel) 50 mg PO HS [facility] PRN Reason: Protocol Last Admin: 11/23/17 21:12 Dose: 50 mg Tramadol HCl (Ultram) 50 mg PO ONCE PRN PRN Reason: Pain, severe (8-10) Last Admin: 11/24/17 09:47 Dose: 50 mg Ziprasidone (Geodon Inj) 20 mg IM Q6H PRN; Protocol PRN Reason: severe agitaiton/psychosis Last Admin: 11/19/17 15:25 Dose: 20 mg - Labs Labs: 11/24/17 06:30 11/24/17 06:30 Attending/Attestation - Attestation I have personally seen and examined this patient.: Yes I have fully participated in the care of the patient.: Yes I have reviewed all pertinent clinical information, including history, physical exam and plan: Yes Notes (Text): Patient seen and examined with the residents, agree with above MRSA bacteremia will get cardio for possible MITUL continue with Vancomycin, Further recommendations as per ID
[2017-11-24 07:03] LABS: BASO # 0.02 K/mm3 (0.0-2.0); BASO % 0.1 % (0.0-3.0); EOS # 0.3 (0.0-0.7); EOS % 1.4 % (1.5-5.0); GRAN # 14.75 (1.4-6.5); GRAN % 80.2 % (50.0-68.0); HEMOGLOBIN 10.2 g/dL (14.0-18.0); LYMPH # 2.2 (1.2-3.4); LYMPH % 11.9 % (22.0-35.0); MEAN CELL VOLUME 70.9 fl (80.0-105.0); MEAN CORPUSCULAR HGB CONC 32.4 g/dl (31.0-37.0); MEAN PLATELET VOLUME 8.4 fl (7.0-11.0); MONO # 1.2 (0.1-0.6); MONO % 6.4 % (1.0-6.0); RBC 4.44 10^6/uL (3.5-6.1); RED CELL DISTRIBUTION WIDTH 16.9 % (11.5-14.5); WHITE BLOOD COUNT 18.4 10^3/ul (4.5-11.0)
[2017-11-24 07:48] LABS: ALB/GLOB RATIO 0.7 (1.1-1.8); ALBUMIN 3.2 g/dL (3.0-4.8); ALT/SGPT 95 U/L (7-56); AST/SGOT 100 U/L (17-59); BLOOD UREA NITROGEN 11 mg/dL (7-21); CALCIUM 9.3 mg/dL (8.4-10.5); GFR NON-AFRICAN AMERICAN > 60
--- NOTE | 2017-11-24 08:50 | CON ---
Copied To: Eduardo Castro MD Attending MD: Eduardo Castro MD DATE: 11/17/2017 CHIEF COMPLAINT: Right wrist pain and effusion. HISTORY OF PRESENT ILLNESS: The patient is a 47-year-old male, who has a history of IV drug abuse. The patient also has a history of right wrist surgery. The patient is unable to provide history and details of the previous right wrist surgery. He was admitted for right wrist and arm erythema and swelling. Denies any fever or chills. Denies any chest pain. Denies any paresthesia or motor weakness. The patient admits to IV drug abuse of heroin within the past few days. PHYSICAL EXAMINATION: EXTREMITIES: On examination of the patient's right wrist, there is a dorsal incision. The skin has slight erythema. No ecchymosis. Wrist extension to 20, flexion to 20. Neurovascularly intact distally. Rest of the exam is limited secondary to pain. IMAGING: X-ray of the patient's right wrist, images are consistent with a previous surgery, likely a proximal row carpectomy. ASSESSMENT: A 47-year-old male with right wrist pain after IV drug abuse. Treatment in detail was discussed with the patient, explaining the nature of the injury, which may be related to tendinitis versus infection. At this time, I offered the patient the option of open irrigation and debridement, which the patient refused and recommended an MRI of the right wrist. The patient also refused the right wrist MRI at this time. We will comply with the patient's wishes. He will keep the arm elevated and ice and we will continue to monitor his progress. Otherwise, the patient will follow up as outpatient. Eduardo Castro MD VON
[2017-11-24] MEDS: Vancomycin 1gm in NS 250ml 1 GM/250 ML BAG IVPB SCH ×2 (09:48→22:54)
[2017-11-24] MEDS: Enoxaparin 40 mg Syringe SC SCH (09:48)
[2017-11-24] MEDS: Lidocaine 5% Patch TD SCH ×2 (09:52→10:03)
--- NOTE | 2017-11-24 23:12 | CP.PCM.PN ---
Subjective - Date & Time of Evaluation Date of Evaluation: 11/24/17 Time of Evaluation: 21:00 - Subjective Subjective: PGY-[address] Cavazos Patient seen and examined at bedside Patient was seen for EKG changes; tachycardic Patient states he has been having diarrhea and diaphoresis Patient complains of arm pain where he injects; Patient states he has back and hip pain VS-stable reviewed GEN: NAD CArd: regular, tachycardia, s1s2, Pulm: CTA b/l no w.r.r s/p breathing treatment Neuro: move all extrem equally, motor and sensory grosssly intact A: - Change in EKG, doubt ischemic in origin, asymptomatic - sinus tachycardia, likely 2/2 withdrawal symptoms vs infection - leg/back pain, controlled P: - repeat EKG am. continue observe clinical couse - explained he has infection and being treated with abx - Patient states he has back and hip pain; Reviewed imaging and discussed results with patient Objective - Vital Signs/Intake and Output Vital Signs (last 24 hours): Temp Pulse Resp BP Pulse Ox 97.8 F 96 H 21 136/72 99 11/24/17 22:00 11/24/17 22:00 11/24/17 22:00 11/24/17 22:00 11/24/17 22:00 Intake and Output: 11/24/17 11/25/17 18:59 06:59 Intake Total 720 Output Total 2000 Balance -1280 - Medications Medications: Current Medications Acetaminophen (Tylenol 325mg Tab) 325 mg PO Q4 PRN PRN Reason: Fever >100.4 F Last Admin: 11/23/17 19:05 Dose: 325 mg Albuterol/Ipratropium (Duoneb 3 Mg/0.5 Mg (3 Ml) Ud) 3 ml IH [id number] [facility] Last Admin: 11/24/17 20:04 Dose: 3 ml Albuterol/Ipratropium (Duoneb 3 Mg/0.5 Mg (3 Ml) Ud) 3 ml IH Q4H PRN PRN Reason: Shortness of Breath Clonidine HCl (Catapres) 0.1 mg PO Q8H PRN PRN Reason: Withdrawal symptoms Cyclobenzaprine HCl (Flexeril) 5 mg PO TID [facility] Last Admin: 11/24/17 17:59 Dose: 5 mg Enoxaparin Sodium (Lovenox) 40 mg SC DAILY [facility] PRN Reason: Protocol Last Admin: 11/24/17 09:48 Dose: 40 mg Ferrous Sulfate (Feosol) 324 mg PO BID [facility] Last Admin: 11/24/17 17:59 Dose: 324 mg Guaifenesin/Dextromethorphan (Robitussin Dm) 10 ml PO Q4H PRN PRN Reason: Cough Hydroxyzine HCl (Atarax) 25 mg PO Q8H PRN PRN Reason: Anxiety Vancomycin HCl (Vancomycin 1gm) 1 gm in 250 mls @ 133.333 mls/hr IVPB Q12 [facility] PRN Reason: Protocol Last Admin: 11/24/17 22:54 Dose: 133.333 mls/hr Piperacillin Sod/Tazobactam Sod (Zosyn 3.375 In Ns 100ml) 100 mls @ 200 mls/hr IV Q6 [facility] PRN Reason: Protocol Stop: 11/25/17 12:01 Last Admin: 11/24/17 22:55 Dose: 200 mls/hr Ibuprofen (Motrin Tab) 600 mg PO Q6H PRN PRN Reason: Pain, severe (8-10) Last Admin: 11/24/17 13:33 Dose: 600 mg Lidocaine (Lidoderm) 1 ea TD DAILY [facility] Last Admin: 11/24/17 10:03 Dose: Not Given Lorazepam (Ativan) 1 mg IVP Q8H [facility] PRN Reason: Protocol Last Admin: 11/24/17 22:53 Dose: 1 mg Lorazepam (Ativan) 1 mg IVP Q8H PRN; Protocol PRN Reason: Symptoms of alcohol withdrawl Ondansetron HCl (Zofran Inj) 4 mg IVP Q6H PRN PRN Reason: Nausea/Vomiting Last Admin: 11/19/17 07:40 Dose: 4 mg Quetiapine Fumarate (Seroquel) 50 mg PO HS [facility] PRN Reason: Protocol Last Admin: 11/23/17 21:12 Dose: 50 mg Tramadol HCl (Ultram) 50 mg PO ONCE PRN PRN Reason: Pain, severe (8-10) Last Admin: 11/24/17 09:47 Dose: 50 mg Ziprasidone (Geodon Inj) 20 mg IM Q6H PRN; Protocol PRN Reason: severe agitaiton/psychosis Last Admin: 11/19/17 15:25 Dose: 20 mg - Labs Labs: 11/24/17 06:30 11/24/17 06:30
[2017-11-25] MEDS: Piperacillin/Tazobact 3.375 gm 100 ML IV SCH ×3 (00:58→12:00)
[2017-11-25] MEDS: Albuterol-Ipratrop 3 mg / 0.5 (3 ml) UD IH SCH ×4 (01:14→20:16)
--- NOTE | 2017-11-25 03:26 | PN ---
Copied To: Ty Will MD Attending MD: Ty Will MD DATE: 11/24/2017 SUBJECTIVE: Patient is in bed, in no acute distress. Nontoxic. PHYSICAL EXAMINATION: VITAL SIGNS: Temperature is 98, blood pressure is 120/70, respiratory rate of 16. HEENT: Unremarkable. NECK: Supple. LUNGS: Have decreased breath sounds. HEART: Normal S1 and S2. ABDOMEN: Soft. LABORATORY EXAMINATION: Reveals a white count of 18.4, hemoglobin of 10. Chemistries are noted and urinalysis is noted. Toxicology is reviewed. HIV is negative. Microbiology is noted with MRSA and Klebsiella in the blood. Repeat blood cultures are negative. Patient's chest x-ray has no infiltrates. The patient had thoracic MRI; well-circumscribed lesion at T7 vertebral body, possible hemangioma. Patient also had a wrist MRI, no evidence of osteomyelitis. Microbiology reveals patient did have MRSA and Klebsiella bacteremia. The patient's HIV is negative and did have sed rate of 54 and C-reactive protein 195. ASSESSMENT AND PLAN: This is a 47-year-old male, seen earlier this morning with history of an intravenous drug abuse, sepsis, methicillin-resistant Staphylococcus aureus and Klebsiella bacteremia, day #7 of vancomycin and meropenem with questionable positive finding of thoracic spine. Would recommend following the sedimentation rate and C-reactive protein and the vancomycin trough level 1 week, actually the patient is on vancomycin and Zosyn right now. We will continue present course. Awaiting for medical response and we will follow closely with you. Ty Will MD
--- NOTE | 2017-11-25 05:36 | CP.PCM.PN ---
<Sean Tellez - Last Filed: 11/25/17 15:43> Subjective - Date & Time of Evaluation Date of Evaluation: 11/25/17 Time of Evaluation: 05:30 - Subjective Subjective: Sean Tellez PGY1, medicine progress note for Dr. Granados. Pt seen and examined this morning. Pt sleeping, diaphoretic upon arrival, which he attributes to heroin withdrawal. Pt denies hand/wrist pain, admits to left sided back pain. Pt had an episode of tachycardia last night, EKG showed a junctional rhythm. Objective - Vital Signs/Intake and Output Vital Signs (last 24 hours): Temp Pulse Resp BP Pulse Ox 97.8 F 96 H 21 136/72 99 11/24/17 22:00 11/24/17 22:00 11/24/17 22:00 11/24/17 22:00 11/24/17 22:00 Intake and Output: 11/24/17 11/25/17 18:59 06:59 Intake Total 720 Output Total 2000 Balance -1280 - Medications Medications: Current Medications Acetaminophen (Tylenol 325mg Tab) 325 mg PO Q4 PRN PRN Reason: Fever >100.4 F Last Admin: 11/23/17 19:05 Dose: 325 mg Albuterol/Ipratropium (Duoneb 3 Mg/0.5 Mg (3 Ml) Ud) 3 ml IH [id number] [facility] Last Admin: 11/25/17 01:14 Dose: 3 ml Albuterol/Ipratropium (Duoneb 3 Mg/0.5 Mg (3 Ml) Ud) 3 ml IH Q4H PRN PRN Reason: Shortness of Breath Clonidine HCl (Catapres) 0.1 mg PO Q8H PRN PRN Reason: Withdrawal symptoms Cyclobenzaprine HCl (Flexeril) 5 mg PO TID [facility] Last Admin: 11/24/17 17:59 Dose: 5 mg Enoxaparin Sodium (Lovenox) 40 mg SC DAILY [facility] PRN Reason: Protocol Last Admin: 11/24/17 09:48 Dose: 40 mg Ferrous Sulfate (Feosol) 324 mg PO BID [facility] Last Admin: 11/24/17 17:59 Dose: 324 mg Guaifenesin/Dextromethorphan (Robitussin Dm) 10 ml PO Q4H PRN PRN Reason: Cough Hydroxyzine HCl (Atarax) 25 mg PO Q8H PRN PRN Reason: Anxiety Vancomycin HCl (Vancomycin 1gm) 1 gm in 250 mls @ 133.333 mls/hr IVPB Q12 [facility] PRN Reason: Protocol Last Admin: 11/24/17 22:54 Dose: 133.333 mls/hr Piperacillin Sod/Tazobactam Sod (Zosyn 3.375 In Ns 100ml) 100 mls @ 200 mls/hr IV Q6 [facility] PRN Reason: Protocol Stop: 11/25/17 12:01 Last Admin: 11/25/17 00:58 Dose: 200 mls/hr Ibuprofen (Motrin Tab) 600 mg PO Q6H PRN PRN Reason: Pain, severe (8-10) Last Admin: 11/25/17 01:06 Dose: 600 mg Lidocaine (Lidoderm) 1 ea TD DAILY [facility] Last Admin: 11/24/17 10:03 Dose: Not Given Lorazepam (Ativan) 1 mg IVP Q8H [facility] PRN Reason: Protocol Last Admin: 11/24/17 22:53 Dose: 1 mg Lorazepam (Ativan) 1 mg IVP Q8H PRN; Protocol PRN Reason: Symptoms of alcohol withdrawl Ondansetron HCl (Zofran Inj) 4 mg IVP Q6H PRN PRN Reason: Nausea/Vomiting Last Admin: 11/19/17 07:40 Dose: 4 mg Quetiapine Fumarate (Seroquel) 50 mg PO HS [facility] PRN Reason: Protocol Last Admin: 11/24/17 23:00 Dose: 50 mg Tramadol HCl (Ultram) 50 mg PO ONCE PRN PRN Reason: Pain, severe (8-10) Last Admin: 11/24/17 09:47 Dose: 50 mg Ziprasidone (Geodon Inj) 20 mg IM Q6H PRN; Protocol PRN Reason: severe agitaiton/psychosis Last Admin: 11/19/17 15:25 Dose: 20 mg - Labs Labs: 11/24/17 06:30 11/24/17 06:30 - Constitutional Appears: No Acute Distress - Head Exam Head Exam: ATRAUMATIC, NORMOCEPHALIC - Eye Exam Eye Exam: EOMI - ENT Exam ENT Exam: Mucous Membranes Moist - Neck Exam Neck Exam: Full ROM - Respiratory Exam Respiratory Exam: Clear to Ausculation Bilateral, NORMAL BREATHING PATTERN. absent: Accessory Muscle Use, Wheezes, Respiratory Distress, Stridor - Cardiovascular Exam Cardiovascular Exam: REGULAR RHYTHM, RRR, +S1, +S2. absent: Bradycardia, Tachycardia, Diastolic murmur, Irregular Rhythm, JVD, Murmur - GI/Abdominal Exam GI & Abdominal Exam: Soft, Normal Bowel Sounds. absent: Distended, Firm, Guarding, Rigid, Tenderness, Rebound - Extremities Exam Extremities Exam: Full ROM. absent: Calf Tenderness, Pedal Edema, Tenderness Additional comments: pt has difficulty fully extending LLE, due to pain - Back Exam Back Exam: absent: CVA tenderness (L), CVA tenderness (R) Additional comments: pt reports pain to palpation over his left lower back - Neurological Exam Neurological Exam: Alert, Awake, Oriented x3 - Psychiatric Exam Psychiatric exam: Normal Affect, Normal Mood - Skin Skin Exam: Dry, Normal Color, Warm Assessment and Plan - Assessment and Plan (Free Text) Assessment: Pt is a 47 yo male with PMH of IVDA, Hep C, HLD, and carpal tunnel who is admitted for right wrist pain with swelling and opioid withdrawal symptoms. Plan: Intractable Back Pain - Continue analgesics - Neurosurgery following, Dr. Shearer - Orthopedic surgery following, Dr Astorga MRSA Bacteremia - Continue Vanc - ID following, Dr. Deshpande - MITUL: no evidence of endocarditis, no vegetations seen - cardio following, Dr Goyal Wrist Pain - MRI wrist: no evidence of osteomyelitis - Orthopedic surgery, Dr. Castro Microcytic Anemia - Continue to monitor - continue ferrous sulfate BID Ppx - Lovenox Pt seen, examined, assessment and plan discussed with Dr Roberta Tellez PGY-1 <Sandra Granados - Last Filed: 11/25/17 16:52> Objective - Vital Signs/Intake and Output Vital Signs (last 24 hours): Temp Pulse Resp BP Pulse Ox 98.6 F 94 H 18 102/67 96 11/25/17 14:00 11/25/17 14:00 11/25/17 14:00 11/25/17 14:00 11/25/17 14:00 Intake and Output: 11/25/17 11/25/17 06:59 18:59 Intake Total 600 75 Output Total 1000 Balance 600 -925 - Medications Medications: Current Medications Acetaminophen (Tylenol 325mg Tab) 325 mg PO Q4 PRN PRN Reason: Fever >100.4 F Last Admin: 11/23/17 19:05 Dose: 325 mg Albuterol/Ipratropium (Duoneb 3 Mg/0.5 Mg (3 Ml) Ud) 3 ml IH [id number] [facility] Last Admin: 11/25/17 13:29 Dose: Not Given Albuterol/Ipratropium (Duoneb 3 Mg/0.5 Mg (3 Ml) Ud) 3 ml IH Q4H PRN PRN Reason: Shortness of Breath Clonidine HCl (Catapres) 0.1 mg PO Q8H PRN PRN Reason: Withdrawal symptoms Cyclobenzaprine HCl (Flexeril) 5 mg PO TID [facility] Last Admin: 11/25/17 15:00 Dose: 5 mg Enoxaparin Sodium (Lovenox) 40 mg SC DAILY [facility] PRN Reason: Protocol Last Admin: 11/25/17 15:02 Dose: 40 mg Ferrous Sulfate (Feosol) 324 mg PO BID [facility] Last Admin: 11/25/17 10:33 Dose: Not Given Guaifenesin/Dextromethorphan (Robitussin Dm) 10 ml PO Q4H PRN PRN Reason: Cough Hydroxyzine HCl (Atarax) 25 mg PO Q8H PRN PRN Reason: Anxiety Vancomycin HCl (Vancomycin 1gm) 1 gm in 250 mls @ 133.333 mls/hr IVPB Q12 [facility] PRN Reason: Protocol Last Admin: 11/25/17 14:56 Dose: 133.333 mls/hr Ibuprofen (Motrin Tab) 600 mg PO Q6H PRN PRN Reason: Pain, severe (8-10) Last Admin: 11/25/17 01:06 Dose: 600 mg Lidocaine (Lidoderm) 1 ea TD DAILY [facility] Last Admin: 11/25/17 15:04 Dose: Not Given Lorazepam (Ativan) 1 mg IVP Q8H [facility] PRN Reason: Protocol Last Admin: 11/25/17 12:30 Dose: Not Given Lorazepam (Ativan) 1 mg IVP Q8H PRN; Protocol PRN Reason: Symptoms of alcohol withdrawl Ondansetron HCl (Zofran Inj) 4 mg IVP Q6H PRN PRN Reason: Nausea/Vomiting Last Admin: 11/19/17 07:40 Dose: 4 mg Quetiapine Fumarate (Seroquel) 50 mg PO HS [facility] PRN Reason: Protocol Last Admin: 11/24/17 23:00 Dose: 50 mg Tramadol HCl (Ultram) 50 mg PO ONCE PRN PRN Reason: Pain, severe (8-10) Last Admin: 11/24/17 09:47 Dose: 50 mg Ziprasidone (Geodon Inj) 20 mg IM Q6H PRN; Protocol PRN Reason: severe agitaiton/psychosis Last Admin: 11/19/17 15:25 Dose: 20 mg - Labs Labs: 11/25/17 16:16 11/25/17 16:16 Attending/Attestation - Attestation I have personally seen and examined this patient.: Yes I have fully participated in the care of the patient.: Yes I have reviewed all pertinent clinical information, including history, physical exam and plan: Yes
--- NOTE | 2017-11-25 09:52 | CARD ---
APPROVED REPORT Date of service: 11/24/2017 EKG Measurement Heart [id number] <Conclusion> SVTat 128 BPM PRWP NSSTW changes All findings new c/w ECG 11/17/17
--- NOTE | 2017-11-25 10:11 | CARD ---
APPROVED REPORT Date of service: 11/25/2017 EKG Measurement Heart [id number] <Conclusion> Normal sinus rhythm, new Normal ECG
[2017-11-25] MEDS ORDERED: Benzocaine/Butamben/Tetracai 14-2-2% TOP Spray TOP ONE (11:25)
--- NOTE | 2017-11-25 12:29 | CP.PCM.CON ---
History of Present Illness - History of Present Illness History of Present Illness: came to evaluate Pt - off floor for some study unrelated to stated complaint of back pain In any case has normal MRIs of both lumbar and thoracic spine no indication for neurosurgical involvement Past Patient History - Past Social History Smoking Status: Current Some Days Smoker - CARDIAC Hx Hypercholesterolemia: Yes - HEMATOLOGICAL/ONCOLOGICAL Hx Blood Disorders: Yes Hx Hepatitis C: Yes - MUSCULOSKELETAL/RHEUMATOLOGICAL Hx Arthritis: Yes - PSYCHIATRIC Hx Substance Use: Yes - SURGICAL HISTORY Hx Surgeries: No - ANESTHESIA Hx Anesthesia: No Meds Allergies/Adverse Reactions: Allergies Allergy/AdvReac Type Severity Reaction Status Date / Time No Known Allergies Allergy Unverified 11/17/17 03:09 - Medications Medications: Current Medications Acetaminophen (Tylenol 325mg Tab) 325 mg PO Q4 PRN PRN Reason: Fever >100.4 F Last Admin: 11/23/17 19:05 Dose: 325 mg Albuterol/Ipratropium (Duoneb 3 Mg/0.5 Mg (3 Ml) Ud) 3 ml IH [id number] [facility] Last Admin: 11/25/17 08:47 Dose: 3 ml Albuterol/Ipratropium (Duoneb 3 Mg/0.5 Mg (3 Ml) Ud) 3 ml IH Q4H PRN PRN Reason: Shortness of Breath Clonidine HCl (Catapres) 0.1 mg PO Q8H PRN PRN Reason: Withdrawal symptoms Cyclobenzaprine HCl (Flexeril) 5 mg PO TID [facility] Last Admin: 11/25/17 10:33 Dose: Not Given Enoxaparin Sodium (Lovenox) 40 mg SC DAILY [facility] PRN Reason: Protocol Last Admin: 11/24/17 09:48 Dose: 40 mg Ferrous Sulfate (Feosol) 324 mg PO BID [facility] Last Admin: 11/25/17 10:33 Dose: Not Given Guaifenesin/Dextromethorphan (Robitussin Dm) 10 ml PO Q4H PRN PRN Reason: Cough Hydroxyzine HCl (Atarax) 25 mg PO Q8H PRN PRN Reason: Anxiety Vancomycin HCl (Vancomycin 1gm) 1 gm in 250 mls @ 133.333 mls/hr IVPB Q12 [facility] PRN Reason: Protocol Last Admin: 11/24/17 22:54 Dose: 133.333 mls/hr Ibuprofen (Motrin Tab) 600 mg PO Q6H PRN PRN Reason: Pain, severe (8-10) Last Admin: 11/25/17 01:06 Dose: 600 mg Lidocaine (Lidoderm) 1 ea TD DAILY [facility] Last Admin: 11/24/17 10:03 Dose: Not Given Lorazepam (Ativan) 1 mg IVP Q8H [facility] PRN Reason: Protocol Last Admin: 11/25/17 05:45 Dose: 1 mg Lorazepam (Ativan) 1 mg IVP Q8H PRN; Protocol PRN Reason: Symptoms of alcohol withdrawl Ondansetron HCl (Zofran Inj) 4 mg IVP Q6H PRN PRN Reason: Nausea/Vomiting Last Admin: 11/19/17 07:40 Dose: 4 mg Quetiapine Fumarate (Seroquel) 50 mg PO HS [facility] PRN Reason: Protocol Last Admin: 11/24/17 23:00 Dose: 50 mg Tramadol HCl (Ultram) 50 mg PO ONCE PRN PRN Reason: Pain, severe (8-10) Last Admin: 11/24/17 09:47 Dose: 50 mg Ziprasidone (Geodon Inj) 20 mg IM Q6H PRN; Protocol PRN Reason: severe agitaiton/psychosis Last Admin: 11/19/17 15:25 Dose: 20 mg Results - Vital Signs Recent Vital Signs: Last Vital Signs Temp 97.8 F 11/25/17 06:00 Pulse 78 11/25/17 06:00 Resp 18 11/25/17 06:00 BP 96/56 L 11/25/17 06:00 Pulse Ox 97 11/25/17 06:00 - Labs Result Diagrams: 11/24/17 06:30 11/24/17 06:30
[2017-11-25] MEDS ORDERED: Midazolam 2 MG/2 ML VIAL ONE (12:42)
[2017-11-25] MEDS ORDERED: Naloxone 0.4 mg/ml Inj (Adult) ONE (12:42)
[2017-11-25] MEDS ORDERED: Flumazenil 0.1 mg/ml Inj (5ml) IVP ONE (12:43)
[2017-11-25] MEDS ORDERED: Sodium Chloride 0.9% 1,000 ML IV SCH (13:15)
--- NOTE | 2017-11-25 13:42 | PN ---
Copied To: Ty Will MD Attending MD: Ty Will MD DATE: 11/25/2017 SUBJECTIVE: The patient is in bed, in no acute distress, nontoxic. PHYSICAL EXAMINATION: VITAL SIGNS: Temperature is 99, blood pressure is 120/70, respiratory rate 16. HEENT: Unremarkable. NECK: Supple. LUNGS: Have decreased breath sounds. HEART: Normal S1, S2. ABDOMINAL: Soft. LABORATORY EXAMINATION: Noted and it include sed rate of 54 and white count is 18,400 and chemistries reveals a procalcitonin is 0.22 and C-reactive protein is elevated at 195 and urinalysis is noted. Toxicology is reviewed and HIV is negative. Microbiology: Repeat blood cultures are no growth. ASSESSMENT AND PLAN: A 47-year-old male with history of active intravenous drug abuse. Admitted with sepsis with methicillin-resistant Staphylococcus aureus and Klebsiella bacteremia on vancomycin and meropenem day #8 and thoracic spine findings and elevated sed rate and C-reactive protein and currently now on vancomycin and Zosyn, day #8. We would treat this patient at least for 4 weeks, perhaps longer. I am concerned about this chronic back pain in the MRI findings with elevated sed rate and C-reactive protein. We will order a vanco trough levels, which is 9.9 on the . He will have a repeat one with methicillin-resistant Staphylococcus aureus bacteremia and the patient's should have a repeat echocardiogram on the . We will follow closely with you. Ty Will MD
[2017-11-25] MEDS: Vancomycin 1gm in NS 250ml 1 GM/250 ML BAG IVPB SCH ×2 (14:56→21:12)
[2017-11-25] MEDS: Enoxaparin 40 mg Syringe SC SCH (15:02)
[2017-11-25] MEDS: Lidocaine 5% Patch TD SCH ×2 (15:04→18:19)
--- NOTE | 2017-11-25 15:14 | CARD ---
APPROVED REPORT Date of service: 11/25/2017 EXAM: Two-dimensional and M-mode echocardiogram with Doppler and color Doppler. INDICATION Infection : Rule out subacute bacterial endocarditis Reason For Test : Rule out endocarditis. PROCEDURE After obtaining informed consent, patient underwent transesophageal echo in the Echo Lab. Type of Sedation : Conscious Sedation Sedation was administered by Dr. foster. Sedation was achieved with Versed and , Fentanyl 4mg and 100 mcg intravenously. Transesophageal probe was inserted and advanced into esophagus without difficulty. Echo enhancement indication: R/O Septal defect. Echo enhancement agent administered: Agitated Saline The MITUL was performed without complications. Throughout the procedure, the blood pressure, pulse oximetry, cardiac rhythm, and rate were monitored. The patient tolerated the procedure without adverse effects. Recovery from conscious sedation was uneventful and vital signs were stable. LEFT VENTRICLE The left ventricle is normal size. There is mild concentric left ventricular hypertrophy. The left ventricular function is normal.EF-55-60% There is normal LV segmental wall motion. No left ventricle thrombus noted on this study. There is no ventricular septal defect visualized. There is no left ventricular aneurysm. There is no mass noted in the left ventricle. RIGHT VENTRICLE The right ventricle is normal size. There is normal right ventricular wall thickness. The right ventricular systolic function is normal. ATRIA The left atrium is mildlymildly dilated. The right atrium is borderline dilated. The interatrial septum is intact with no evidence for an atrial septal defect. AORTIC VALVE The aortic valve is mildly to moderately thickened. No aortic regurgitation is present. There is no aortic valvular stenosis. There is no aortic valvular vegetation. MITRAL VALVE The mitral valve leaflets are thickened. There is no evidence of mitral valve prolapse. There is no mitral valve stenosis. Mitral regurgitation is mild . TRICUSPID VALVE The tricuspid valve leaflets display thickening. There is no tricuspid valve regurgitation noted. There is no tricuspid valve prolapse or vegetation. There is no tricuspid valve stenosis. PULMONIC VALVE The pulmonic valve is borderline thickened. There is no pulmonic valvular regurgitation. There is no pulmonic valvular stenosis. GREAT VESSELS The aortic root is normal in size. The ascending aorta is normal in size. The pulmonary artery is normal. The IVC is normal in size and collapses >50% with inspiration. PERICARDIAL EFFUSION Trivial pericardial effusion There is no pleural effusion. <Conclusion> The left ventricle is normal size. There is mild concentric left ventricular hypertrophy. The left ventricular function is normal.EF-55-60% No aortic regurgitation is present. There is no tricuspid valve regurgitation noted. There is no pulmonic valvular regurgitation. Trivial pericardial effusion No vegetation noted in this study.
[2017-11-25 16:27] LABS: BASO # 0.02 K/mm3 (0.0-2.0); BASO % 0.2 % (0.0-3.0); EOS # 0.2 (0.0-0.7); EOS % 2.2 % (1.5-5.0); GRAN # 8.53 (1.4-6.5); GRAN % 76.7 % (50.0-68.0); HEMOGLOBIN 8.7 g/dL (14.0-18.0); LYMPH # 1.8 (1.2-3.4); LYMPH % 16.1 % (22.0-35.0); MEAN CELL VOLUME 71.5 fl (80.0-105.0); MEAN CORPUSCULAR HEMOGLOBIN 23.1 pg (25.0-35.0); MEAN CORPUSCULAR HGB CONC 32.3 g/dl (31.0-37.0); MONO # 0.5 (0.1-0.6); MONO % 4.8 % (1.0-6.0); RBC 3.76 10^6/uL (3.5-6.1); RED CELL DISTRIBUTION WIDTH 17.1 % (11.5-14.5); WHITE BLOOD COUNT 11.1 10^3/ul (4.5-11.0)
[2017-11-25 16:46] LABS: ALB/GLOB RATIO 0.7 (1.1-1.8); ALBUMIN 3.1 g/dL (3.0-4.8); ALT/SGPT 82 U/L (7-56); AST/SGOT 66 U/L (17-59); BLOOD UREA NITROGEN 15 mg/dL (7-21); CALCIUM 9.2 mg/dL (8.4-10.5); GFR NON-AFRICAN AMERICAN > 60
[2017-11-26] MEDS: Albuterol-Ipratrop 3 mg / 0.5 (3 ml) UD IH SCH ×4 (01:58→22:20)
[2017-11-26] MEDS: Lidocaine 5% Patch TD SCH (09:57)
[2017-11-26] MEDS: Vancomycin 1gm in NS 250ml 1 GM/250 ML BAG IVPB SCH ×2 (09:59→21:30)
[2017-11-26] MEDS: Enoxaparin 40 mg Syringe SC SCH (10:00)
--- NOTE | 2017-11-26 10:12 | RAD ---
PROCEDURE: Left Hip and pelvis X-ray Radiographs. HISTORY: left leg unable to straighten, pain COMPARISON: None. FINDINGS: BONES: Normal. No fracture. JOINTS: There is severe joint space narrowing in the left hip. SOFT TISSUES: Normal. OTHER FINDINGS: None. IMPRESSION: There is severe joint space narrowing in the left hip.
--- NOTE | 2017-11-26 10:54 | PN ---
Copied To: David Goyal MD Attending MD: David Goyal MD DATE: 11/26/2017 CARDIOLOGY FOLLOWUP SUBJECTIVE: The patient tolerated MITUL without issues. LV function is normal. Given these findings, no further cardiac workup is necessary at this time. David Goyal MD
[2017-11-26] MEDS ORDERED: Vancomycin 2 GM in Sodium Chloride 0.9% 500 ML IVPB ONE (15:43)
--- NOTE | 2017-11-26 17:10 | CP.PCM.PN ---
<Thom Ghosh - Last Filed: 11/26/17 17:05> Subjective - Date & Time of Evaluation Date of Evaluation: 11/26/17 Time of Evaluation: 10:30 - Subjective Subjective: Thom Ghosh DO PGY-1, Music Coordinator Medicine Progress Note Pt seen and examined at bedside. Reports pain in L hip, states it has improved a little since admission. No acute events reported overnight. Pt on IV anbx. 12- point ROS obtained, otherwise neg as per pt. Objective - Vital Signs/Intake and Output Vital Signs (last 24 hours): Temp Pulse Resp BP Pulse Ox 100.4 F H 102 H 20 113/76 95 11/26/17 14:00 11/26/17 14:00 11/26/17 14:00 11/26/17 14:00 11/26/17 14:00 - Medications Medications: Current Medications Acetaminophen (Tylenol 325mg Tab) 325 mg PO Q4 PRN PRN Reason: Fever >100.4 F Last Admin: 11/23/17 19:05 Dose: 325 mg Albuterol/Ipratropium (Duoneb 3 Mg/0.5 Mg (3 Ml) Ud) 3 ml IH [id number] [facility] Last Admin: 11/26/17 14:52 Dose: Not Given Albuterol/Ipratropium (Duoneb 3 Mg/0.5 Mg (3 Ml) Ud) 3 ml IH Q4H PRN PRN Reason: Shortness of Breath Clonidine HCl (Catapres) 0.1 mg PO Q8H PRN PRN Reason: Withdrawal symptoms Cyclobenzaprine HCl (Flexeril) 5 mg PO TID [facility] Last Admin: 11/26/17 13:42 Dose: 5 mg Enoxaparin Sodium (Lovenox) 40 mg SC DAILY [facility] PRN Reason: Protocol Last Admin: 11/26/17 10:00 Dose: 40 mg Ferrous Sulfate (Feosol) 324 mg PO BID [facility] Last Admin: 11/26/17 09:58 Dose: 324 mg Guaifenesin/Dextromethorphan (Robitussin Dm) 10 ml PO Q4H PRN PRN Reason: Cough Hydroxyzine HCl (Atarax) 25 mg PO Q8H PRN PRN Reason: Anxiety Vancomycin HCl 2 gm/ Sodium (Chloride) 500 mls @ 170 mls/hr IVPB ONCE ONE PRN Reason: Protocol Stop: 11/26/17 18:39 Vancomycin HCl (Vancomycin 1gm) 1 gm in 250 mls @ 167 mls/hr IVPB Q12H [facility] PRN Reason: Protocol Stop: 12/10/17 18:01 Meropenem (Merrem Iv 1 Gm Premix) 50 mls @ 100 mls/hr IVPB Q8 [facility] PRN Reason: Protocol Stop: 12/06/17 15:49 Ibuprofen (Motrin Tab) 600 mg PO Q6H PRN PRN Reason: Pain, severe (8-10) Last Admin: 11/25/17 20:32 Dose: 600 mg Lidocaine (Lidoderm) 1 ea TD DAILY [facility] Last Admin: 11/26/17 09:57 Dose: 1 ea Lorazepam (Ativan) 1 mg IVP Q8H [facility] PRN Reason: Protocol Last Admin: 11/26/17 13:28 Dose: Not Given Lorazepam (Ativan) 1 mg IVP Q8H PRN; Protocol PRN Reason: Symptoms of alcohol withdrawl Ondansetron HCl (Zofran Inj) 4 mg IVP Q6H PRN PRN Reason: Nausea/Vomiting Last Admin: 11/19/17 07:40 Dose: 4 mg Quetiapine Fumarate (Seroquel) 50 mg PO HS [facility] PRN Reason: Protocol Last Admin: 11/25/17 21:12 Dose: 50 mg Tramadol HCl (Ultram) 50 mg PO ONCE PRN PRN Reason: Pain, severe (8-10) Last Admin: 11/24/17 09:47 Dose: 50 mg Ziprasidone (Geodon Inj) 20 mg IM Q6H PRN; Protocol PRN Reason: severe agitaiton/psychosis Last Admin: 11/19/17 15:25 Dose: 20 mg - Labs Labs: 11/25/17 16:16 11/25/17 16:16 - Constitutional Appears: Non-toxic, No Acute Distress - Head Exam Head Exam: ATRAUMATIC, NORMAL INSPECTION - Eye Exam Eye Exam: EOMI, Normal appearance, PERRL - ENT Exam ENT Exam: Mucous Membranes Moist, Normal Oropharynx - Respiratory Exam Respiratory Exam: Clear to Ausculation Bilateral, NORMAL BREATHING PATTERN - Cardiovascular Exam Cardiovascular Exam: REGULAR RHYTHM, +S1, +S2 - GI/Abdominal Exam GI & Abdominal Exam: Soft, Normal Bowel Sounds. absent: Tenderness - Extremities Exam Extremities Exam: Full ROM, Normal Capillary Refill, Normal Inspection - Neurological Exam Neurological Exam: Alert, Awake, CN II-XII Intact, Oriented x3 - Skin Skin Exam: Dry, Intact, Normal Color, Warm - Additional Findings Additional findings: Tenderness to palpation in L hip joint, no radiation down L leg, full passive and active ROM of LEs b/l Assessment and Plan - Assessment and Plan (Free Text) Assessment: 47 yo male with PMH of IVDA, Hep C, HLD, and carpal tunnel who is admitted for right wrist pain with swelling and opioid withdrawal symptoms. Found to have MRSA and Klebsiella bacteremia on work-up. Currently on IV anbx Plan: Intractable Back Pain - Continue analgesics - Neurosurgery following, Dr. Shearer - Orthopedic surgery following, Dr Castro MRSA Bacteremia - Continue Vanc - ID following, Dr. Deshpande - MITUL: no evidence of endocarditis, no vegetations seen - Cardio following, Dr Goyal -CT abd/pelvis ordered, f/u results Wrist Pain - MRI wrist: no evidence of osteomyelitis - Orthopedic surgery, Dr. Castro L Hip Pain - XR L hip demonstrates severe joint space narrowing Microcytic Anemia - Continue to monitor - continue ferrous sulfate BID Ppx - Lovenox Pt seen, examined, assessment and plan discussed with Dr Granados, attending Thom Ghosh DO PGY-1, Music Coordinator Pager #[phone] <Sandra Granados - Last Filed: 11/27/17 18:57> Objective - Vital Signs/Intake and Output Vital Signs (last 24 hours): Temp Pulse Resp BP Pulse Ox 97.8 F 79 18 100/56 L 96 11/27/17 06:00 11/27/17 06:00 11/27/17 06:00 11/27/17 06:00 11/27/17 06:00 - Labs Labs: 11/27/17 07:00 11/27/17 08:00 Attending/Attestation - Attestation I have personally seen and examined this patient.: Yes I have fully participated in the care of the patient.: Yes I have reviewed all pertinent clinical information, including history, physical exam and plan: Yes
[2017-11-26] MEDS: Meropenem IV 1 gm in NS 50 ML IVPB SCH ×2 (17:48→21:28)
[2017-11-26] MEDS ORDERED: Vancomycin 1gm in NS 250ml 1 GM/250 ML BAG IVPB SCH (18:00)
[2017-11-26 21:50] VITALS: RESP 18
--- NOTE | 2017-11-26 23:26 | PN ---
Copied To: Ty Will MD Attending MD: Ty Will MD DATE: 11/26/2017 SUBJECTIVE: The patient is in bed in no acute distress. He is having fevers. PHYSICAL EXAMINATION: VITAL SIGNS: Temperature is 100.4, blood pressure is 113/70, respiratory rate 20. HEENT: Unremarkable. NECK: Supple. LUNGS: Have decreased breath sounds. HEART: Normal S1, S2. ABDOMEN: Soft. LABORATORY EXAMINATION: Reveals a white count is 11,000, hemoglobin of 8. The chemistries reveals a creatinine of 0.7, procalcitonin 0.22. Vanco trough 9.9 is noted. HIV is negative. Microbiology is noted. Repeat blood cultures negative. ASSESSMENT AND PLAN: This a 47-year-old male with a history of active injury, drug abuse, admitted with sepsis, with methicillin-resistant Staphylococcus aureus and Klebsiella bacteremia, on day #9 of vancomycin and meropenem with thoracic spine findings of hemangioma; however, with a right risk fluid collection on MRI and elevated sed rate, C-reactive protein. He continues to have a fever today and repeat cultures negative from the 11/24/2017 and 11/23/2017 with repeat pancultures now, with new fever and urinalysis. We will order a vancomycin level, pancultures and should have a repeat chest x-ray, procalcitonin. The patient will need prolonged antibiotic therapy currently, and with his new fever, on vancomycin, meropenem. CAT scan of the abdomen and pelvis. Hepatitis profile. Vancomycin trough level, repeat sedimentation rate, C-reactive protein. Should have a repeat chest x-ray. Ty Will MD
[2017-11-27] MEDS: Albuterol-Ipratrop 3 mg / 0.5 (3 ml) UD IH SCH ×2 (03:16→07:15)
[2017-11-27] MEDS: Meropenem IV 1 gm in NS 50 ML IVPB SCH (05:00)
--- NOTE | 2017-11-27 07:36 | PN ---
Copied To: Ty Will MD Attending MD: Ty Will MD DATE: 11/27/2017 SUBJECTIVE: The patient is in bed, in no acute distress. He is having significant back pain. He states his back pain started approximately a few weeks ago and his risk is much improved, he states. OBJECTIVE: VITAL SIGNS: On exam, temperature of 99, he did have a temperature of 100.4 yesterday; heart rate of 102. HEENT: Examination is unremarkable. NECK: Supple. LUNGS: Have decreased breath sounds. HEART: Normal S1, S2. ABDOMEN: Soft. DATA: Laboratory examination reveals a white count of 11,000, hemoglobin is 8, platelets of 641. Chemistries reveal a BUN of 15, creatinine of 0.7 and HIV is negative. Microbiology reveals the patient's repeat blood cultures are negative. Of note is that the patient's C-reactive protein is 195. ASSESSMENT AND PLAN: This is a 47-year-old man who is an active intravenous drug abuser. He states he uses water from anywhere outside, [place], [place] water and using drugs although he does not share his needles with anyone. He does use the same needle over and over again and was admitted with a history of active drug abuse intravenously, admitted with sepsis with methicillin resistant Staphylococcus aureus and Klebsiella bacteremia, on vancomycin and meropenem day #10. The patient does have severe back pain and thoracic spine shows a hemangioma and the patient has a MRI of the right wrist, which shows a fluid collection. He will need prolonged antibiotics. We will check on the repeat sedimentation rate, repeat C-reactive protein, vancomycin trough level and repeat blood cultures, hepatitis profile, on vancomycin and meropenem, waiting for a CAT scan of the abdomen and pelvis. Today is day #10 of antibiotics, will need at least 21 days, perhaps longer based on repeat laboratories and clinical findings. Ty Will MD
[2017-11-27 07:46] VITALS: BP 100/56; PULSE 79; TEMP 97.8; O2SAT 96
[2017-11-27 08:18] LABS: BASO # 0.04 K/mm3 (0.0-2.0); BASO % 0.5 % (0.0-3.0); EOS # 0.2 (0.0-0.7); EOS % 2.5 % (1.5-5.0); GRAN # 5.85 (1.4-6.5); GRAN % 69.4 % (50.0-68.0); HEMOGLOBIN 9.4 g/dL (14.0-18.0); LYMPH # 1.7 (1.2-3.4); LYMPH % 20.2 % (22.0-35.0); MEAN CELL VOLUME 70.9 fl (80.0-105.0); MEAN CORPUSCULAR HEMOGLOBIN 22.8 pg (25.0-35.0); MEAN CORPUSCULAR HGB CONC 32.2 g/dl (31.0-37.0); MEAN PLATELET VOLUME 8.5 fl (7.0-11.0); MONO # 0.6 (0.1-0.6); MONO % 7.4 % (1.0-6.0); RBC 4.12 10^6/uL (3.5-6.1); WHITE BLOOD COUNT 8.4 10^3/ul (4.5-11.0)
[2017-11-27 08:29] LABS: ALB/GLOB RATIO 0.7 (1.1-1.8); ALBUMIN 3.2 g/dL (3.0-4.8); ALT/SGPT 91 U/L (7-56); AST/SGOT 64 U/L (17-59); BLOOD UREA NITROGEN 17 mg/dL (7-21); CALCIUM 9.6 mg/dL (8.4-10.5); GFR NON-AFRICAN AMERICAN > 60
[2017-11-27] MEDS: Enoxaparin 40 mg Syringe SC SCH (10:46)
[2017-11-27] MEDS: Vancomycin 1gm in NS 250ml 1 GM/250 ML BAG IVPB SCH (10:47)
[2017-11-27] MEDS: Lidocaine 5% Patch TD SCH (11:18)
--- NOTE | 2017-11-27 21:10 | CP.PCM.DIS ---
<Thom Ghosh - Last Filed: 11/27/17 21:05> Provider - Provider Date of Admission: 11/18/17 16:26 Attending physician: Adal Pillai MD Primary care physician: NO PCP reported Consults: Dr. Vazquez - Infectious Disease Dr. Castro - Orthopedic Surgery Dr. Shearer - Neurosurgery Dr. Goyal - Cardiology Dr. Celestin - Psychiatry Time Spent in preparation of Discharge (in minutes): 45 Hospital Course - Lab Results Lab Results: Micro Results 11/26/17 21:05 Blood Blood Culture - Preliminary NO GROWTH AFTER 24 HOURS 11/26/17 21:05 Blood Blood Culture - Preliminary NO GROWTH AFTER 24 HOURS 11/23/17 16:47 Blood Blood Culture - Preliminary NO GROWTH AFTER 4 DAYS 11/23/17 16:47 Blood Blood Culture - Preliminary NO GROWTH AFTER 4 DAYS 11/24/17 08:30 Urine Urine Culture - Final No Growth (<1,000 CFU/ML) 11/18/17 20:45 Blood-Venous Blood Culture - Final NO GROWTH AFTER 5 DAYS 11/18/17 20:45 Blood-Venous Gram Stain - Final TEST NOT PERFORMED 11/18/17 20:30 Blood-Venous Blood Culture - Final NO GROWTH AFTER 5 DAYS 11/18/17 20:30 Blood-Venous Gram Stain - Final TEST NOT PERFORMED 11/21/17 10:50 Stool C. difficile Antigen & Toxin A,B (M - Final Most Recent Lab Values WBC 8.4 10^3/ul (4.5-11.0) D 11/27/17 07:00 RBC 4.12 10^6/uL (3.5-6.1) 11/27/17 07:00 Hgb 9.4 g/dL (14.0-18.0) L 11/27/17 07:00 Hct 29.2 % (42.0-52.0) L 11/27/17 07:00 MCV 70.9 fl (80.0-105.0) L 11/27/17 07:00 MCH 22.8 pg (25.0-35.0) L 11/27/17 07:00 MCHC 32.2 g/dl (31.0-37.0) 11/27/17 07:00 RDW 17.0 % (11.5-14.5) H 11/27/17 07:00 Plt Count 900 10^3/uL (120.0-450.0) H* 11/27/17 07:00 MPV 8.5 fl (7.0-11.0) 11/27/17 07:00 Gran % 69.4 % (50.0-68.0) H 11/27/17 07:00 Lymph % (Auto) 20.2 % (22.0-35.0) L 11/27/17 07:00 [place] % (Auto) 7.4 % (1.0-6.0) H 11/27/17 07:00 Eos % (Auto) 2.5 % (1.5-5.0) 11/27/17 07:00 Baso % (Auto) 0.5 % (0.0-3.0) 11/27/17 07:00 Gran # 5.85 (1.4-6.5) 11/27/17 07:00 Lymph # (Auto) 1.7 (1.2-3.4) 11/27/17 07:00 [place] # (Auto) 0.6 (0.1-0.6) 11/27/17 07:00 Eos # (Auto) 0.2 (0.0-0.7) 11/27/17 07:00 Baso # (Auto) 0.04 K/mm3 (0.0-2.0) 11/27/17 07:00 ESR 119 mm/hr (0.0-15.0) H 11/27/17 07:00 Hemoglobin A 96.7 Percent (>96.0) 11/17/17 04:30 Hemoglobin A2 2.3 Percent (1.8-3.5) 11/17/17 04:30 Hemoglobin C 0.0 Percent (0.0-0.0) 11/17/17 04:30 Hemoglobin F () <1.0 Percent (<2.0) 11/17/17 04:30 Hemoglobin S 0.0 Percent (0.0-0.0) 11/17/17 04:30 Variant Hemoglobin 0.0 Percent (0.0-0.0) 11/17/17 04:30 Hemoglobinopathy Red Blood Count 4.26 Mill/mcL (4.20-5.80) 11/17/17 04:30 Hemoglobinopathy Hct 31.6 % (38.5-50.0) L 11/17/17 04:30 Hemoglobinopathy Hgb 10.0 g/dL (13.2-17.1) L 11/17/17 04:30 Hemoglobinopathy MCV 74.4 fL (80.0-100.0) L 11/17/17 04:30 Hemoglobinopathy MCH 23.4 pg (27.0-33.0) L 11/17/17 04:30 Hemoglobinopathy RDW 18.5 % (11.0-15.0) H 11/17/17 04:30 Hemoglobinopathy Interp See note 11/17/17 04:30 Sodium 139 mmol/L (132-148) 11/27/17 08:00 Potassium 4.3 mmol/L (3.6-5.0) 11/27/17 08:00 Chloride 103 mmol/L (98-107) 11/27/17 08:00 Carbon Dioxide 27 mmol/L (21-33) 11/27/17 08:00 Anion Gap 14 (10-20) 11/27/17 08:00 BUN 17 mg/dL (7-21) 11/27/17 08:00 Creatinine 0.6 mg/dl (0.8-1.5) L 11/27/17 08:00 Est GFR ( Amer) > 60 11/27/17 08:00 Est GFR (Non-Af Amer) > 60 11/27/17 08:00 Random Glucose 101 mg/dL (70-110) 11/27/17 08:00 Calcium 9.6 mg/dL (8.4-10.5) 11/27/17 08:00 Phosphorus 3.1 mg/dL (2.5-4.5) 11/17/17 08:10 Magnesium 1.9 mg/dL (1.7-2.2) 11/17/17 08:10 Iron 20 ug/dL (45-180) L 11/17/17 08:10 TIBC 244 ug/dL (261-462) L 11/17/17 08:10 % Saturation 8 % (20-55) L 11/17/17 08:10 Ferritin 181.0 ng/mL 11/17/17 08:10 Total Bilirubin 0.2 mg/dL (0.2-1.3) 11/27/17 08:00 AST 64 U/L (17-59) H 11/27/17 08:00 ALT 91 U/L (7-56) H 11/27/17 08:00 Alkaline Phosphatase 74 U/L (38-126) 11/27/17 08:00 C-Reactive Protein 32.80 mg/L (0.0-9.9) H 11/26/17 21:05 Total Protein 7.9 g/dL (5.8-8.3) 11/27/17 08:00 Albumin 3.2 g/dL (3.0-4.8) 11/27/17 08:00 Globulin 4.7 gm/dL 11/27/17 08:00 Albumin/Globulin Ratio 0.7 (1.1-1.8) L 11/27/17 08:00 Procalcitonin 0.14 NG/ML (0.19-0.49) L 11/26/17 21:05 Urine Color Yellow (YELLOW) 11/17/17 21:43 Urine Appearance Clear (CLEAR) 11/17/17 21:43 Urine pH 6.0 (4.7-8.0) 11/17/17 21:43 Ur Specific [place] 1.025 (1.005-1.035) 11/17/17 21:43 Urine Protein 30 mg/dL (<30 mg/dL) H 11/17/17 21:43 Urine Glucose (UA) Negative mg/dL (NEGATIVE) 11/17/17 21:43 Urine Ketones Negative mg/dL (NEGATIVE) 11/17/17 21:43 Urine Blood Negative (NEGATIVE) 11/17/17 21:43 Urine Nitrate Negative (NEGATIVE) 11/17/17 21:43 Urine Bilirubin Negative (NEGATIVE) 11/17/17 21:43 Urine Urobilinogen 2.0 E.U./dL (<1 E.U./dL) H 11/17/17 21:43 Ur Leukocyte Esterase Negative Rachid/uL (NEGATIVE) 11/17/17 21:43 Urine RBC 0 - 2 /hpf (0-2) 11/17/17 21:43 Urine WBC 1 - 3 /hpf (0-6) 11/17/17 21:43 Ur Epithelial Cells 0 - 2 /hpf (0-5) 11/17/17 21:43 Urine Bacteria Mod (NEG) 11/17/17 21:43 Vancomycin Trough 13.9 ug/mL (5.0-10.0) H 11/27/17 08:30 Urine Opiates Screen Positive (NEGATIVE) H 11/17/17 08:30 Urine Methadone Screen Negative (NEGATIVE) 11/17/17 08:30 Ur Barbiturates Screen Negative (NEGATIVE) 11/17/17 08:30 Ur Phencyclidine Scrn Negative (NEGATIVE) 11/17/17 08:30 Ur Amphetamines Screen Negative (NEGATIVE) 11/17/17 08:30 U Benzodiazepines Scrn Negative (NEGATIVE) 11/17/17 08:30 U Oth Cocaine Metabols Positive (NEGATIVE) H 11/17/17 08:30 U Cannabinoids Screen Negative (NEGATIVE) 11/17/17 08:30 Alcohol, Quantitative < 10 mg/dL (0-10) 11/18/17 06:35 HIV 1&2 Ag/Ab, 4th Gen Nonreactive (Nonreactive) 11/17/17 08:00 - Hospital Course Hospital Course: Thom Ghosh DO PGY-1, Middle School Director Medicine Discharge Summary 47 year old with with past medical history of hyperlipidemia and hepatitis C, prior IV drug abuse, presented on 11/17/17 with 2 day history of right wrist pain , swelling, redness, and warmth. Patient reported he was sleeping when the throbbing pain started. He reports the pain to be constant and nonradiating. No exacerbating or remitting factors. Patient also reported sharp, stabbing lumbar pain that radiates down his left leg with numbness and tingling. Patient reported no fever, chills, chest pain, heart palpitations, shortness of breath, nausea, vomiting, constipation, diarrhea, dysuria, and hematuria. 12-point ROS was otherwise negative, as per HPI. Concern was for r/o osteomyelitis based on pt's clinical presentation. Wrist XR demonstrated soft tissue changes but no signs of osteomyelitis. Wrist MRI demonstrated degenerative changes in distal radius, synovial fluid collection, no signs of osteomyelitis. Lumbar and thoracic imaging demonstrated chronic changes. Pt was also c/o L hip pain initially thought to be 2/2 malingering, however XR L hip demonstrated narrowing of joint space. Ortho and Neurosurgery were consulted, and recommended outpatient follow-up. Pt had cultures drawn on admission, and blood cx grew MRSA and Klebsiella infection. Pt was on Vancomycin and Cefepime for antibiotic coverage. Pt decided to sign out against medical advice on 11/27/17, despite discussion of risks of refusing medical treatment for blood-borne infection and worsening of clinical symptoms. Discharge Exam - Head Exam Head Exam: ATRAUMATIC, NORMAL INSPECTION - Eye Exam Eye Exam: EOMI, Normal appearance, PERRL - ENT Exam ENT Exam: Mucous Membranes Moist - Respiratory Exam Respiratory Exam: NORMAL BREATHING PATTERN, UNREMARKABLE - Cardiovascular Exam Cardiovascular Exam: REGULAR RHYTHM, +S1, +S2 - Extremities Exam Extremities exam: normal capillary refill, normal inspection, pedal pulses present - Neurological Exam Neurological exam: Alert, CN II-XII Intact, Oriented x3 - Psychiatric Exam Psychiatric exam: Normal Affect, Normal Mood - Skin Skin Exam: Dry, Intact, Warm Discharge Plan - Follow Up Plan Condition: STABLE Disposition: AGAINST MEDICAL ADVICE <Frank Petit - Last Filed: 11/27/17 22:06> Provider - Provider Date of Admission: 11/18/17 16:26 Attending physician: Adal Pillai MD Hospital Course - Lab Results Lab Results: Micro Results 11/26/17 21:05 Blood Blood Culture - Preliminary NO GROWTH AFTER 24 HOURS 11/26/17 21:05 Blood Blood Culture - Preliminary NO GROWTH AFTER 24 HOURS 11/23/17 16:47 Blood Blood Culture - Preliminary NO GROWTH AFTER 4 DAYS 11/23/17 16:47 Blood Blood Culture - Preliminary NO GROWTH AFTER 4 DAYS 11/24/17 08:30 Urine Urine Culture - Final No Growth (<1,000 CFU/ML) 11/18/17 20:45 Blood-Venous Blood Culture - Final NO GROWTH AFTER 5 DAYS 11/18/17 20:45 Blood-Venous Gram Stain - Final TEST NOT PERFORMED 11/18/17 20:30 Blood-Venous Blood Culture - Final NO GROWTH AFTER 5 DAYS 11/18/17 20:30 Blood-Venous Gram Stain - Final TEST NOT PERFORMED 11/21/17 10:50 Stool C. difficile Antigen & Toxin A,B (M - Final Most Recent Lab Values WBC 8.4 10^3/ul (4.5-11.0) D 11/27/17 07:00 RBC 4.12 10^6/uL (3.5-6.1) 11/27/17 07:00 Hgb 9.4 g/dL (14.0-18.0) L 11/27/17 07:00 Hct 29.2 % (42.0-52.0) L 11/27/17 07:00 MCV 70.9 fl (80.0-105.0) L 11/27/17 07:00 MCH 22.8 pg (25.0-35.0) L 11/27/17 07:00 MCHC 32.2 g/dl (31.0-37.0) 11/27/17 07:00 RDW 17.0 % (11.5-14.5) H 11/27/17 07:00 Plt Count 900 10^3/uL (120.0-450.0) H* 11/27/17 07:00 MPV 8.5 fl (7.0-11.0) 11/27/17 07:00 Gran % 69.4 % (50.0-68.0) H 11/27/17 07:00 Lymph % (Auto) 20.2 % (22.0-35.0) L 11/27/17 07:00 [place] % (Auto) 7.4 % (1.0-6.0) H 11/27/17 07:00 Eos % (Auto) 2.5 % (1.5-5.0) 11/27/17 07:00 Baso % (Auto) 0.5 % (0.0-3.0) 11/27/17 07:00 Gran # 5.85 (1.4-6.5) 11/27/17 07:00 Lymph # (Auto) 1.7 (1.2-3.4) 11/27/17 07:00 [place] # (Auto) 0.6 (0.1-0.6) 11/27/17 07:00 Eos # (Auto) 0.2 (0.0-0.7) 11/27/17 07:00 Baso # (Auto) 0.04 K/mm3 (0.0-2.0) 11/27/17 07:00 ESR 119 mm/hr (0.0-15.0) H 11/27/17 07:00 Hemoglobin A 96.7 Percent (>96.0) 11/17/17 04:30 Hemoglobin A2 2.3 Percent (1.8-3.5) 11/17/17 04:30 Hemoglobin C 0.0 Percent (0.0-0.0) 11/17/17 04:30 Hemoglobin F () <1.0 Percent (<2.0) 11/17/17 04:30 Hemoglobin S 0.0 Percent (0.0-0.0) 11/17/17 04:30 Variant Hemoglobin 0.0 Percent (0.0-0.0) 11/17/17 04:30 Hemoglobinopathy Red Blood Count 4.26 Mill/mcL (4.20-5.80) 11/17/17 04:30 Hemoglobinopathy Hct 31.6 % (38.5-50.0) L 11/17/17 04:30 Hemoglobinopathy Hgb 10.0 g/dL (13.2-17.1) L 11/17/17 04: Hemoglobinopathy MCV 74.4 fL (80.0-100.0) L 11/17/17 04:30 Hemoglobinopathy MCH 23.4 pg (27.0-33.0) L 11/17/17 04:30 Hemoglobinopathy RDW 18.5 % (11.0-15.0) H 11/17/17 04:30 Hemoglobinopathy Interp See note 11/17/17 04:30 Sodium 139 mmol/L (132-148) 11/27/17 08:00 Potassium 4.3 mmol/L (3.6-5.0) 11/27/17 08:00 Chloride 103 mmol/L (98-107) 11/27/17 08:00 Carbon Dioxide 27 mmol/L (21-33) 11/27/17 08:00 Anion Gap 14 (10-20) 11/27/17 08:00 BUN 17 mg/dL (7-21) 11/27/17 08:00 Creatinine 0.6 mg/dl (0.8-1.5) L 11/27/17 08:00 Est GFR ( Amer) > 60 11/27/17 08:00 Est GFR (Non-Af Amer) > 60 11/27/17 08:00 Random Glucose 101 mg/dL (70-110) 11/27/17 08:00 Calcium 9.6 mg/dL (8.4-10.5) 11/27/17 08:00 Phosphorus 3.1 mg/dL (2.5-4.5) 11/17/17 08:10 Magnesium 1.9 mg/dL (1.7-2.2) 11/17/17 08:10 Iron 20 ug/dL (45-180) L 11/17/17 08:10 TIBC 244 ug/dL (261-462) L 11/17/17 08:10 % Saturation 8 % (20-55) L 11/17/17 08:10 Ferritin 181.0 ng/mL 11/17/17 08:10 Total Bilirubin 0.2 mg/dL (0.2-1.3) 11/27/17 08:00 AST 64 U/L (17-59) H 11/27/17 08:00 ALT 91 U/L (7-56) H 11/27/17 08:00 Alkaline Phosphatase 74 U/L (38-126) 11/27/17 08:00 C-Reactive Protein 32.80 mg/L (0.0-9.9) H 11/26/17 21:05 Total Protein 7.9 g/dL (5.8-8.3) 11/27/17 08:00 Albumin 3.2 g/dL (3.0-4.8) 11/27/17 08:00 Globulin 4.7 gm/dL 11/27/17 08:00 Albumin/Globulin Ratio 0.7 (1.1-1.8) L 11/27/17 08:00 Procalcitonin 0.14 NG/ML (0.19-0.49) L 11/26/17 21:05 Urine Color Yellow (YELLOW) 11/17/17 21:43 Urine Appearance Clear (CLEAR) 11/17/17 21:43 Urine pH 6.0 (4.7-8.0) 11/17/17 21:43 Ur Specific [place] 1.025 (1.005-1.035) 11/17/17 21:43 Urine Protein 30 mg/dL (<30 mg/dL) H 11/17/17 21:43 Urine Glucose (UA) Negative mg/dL (NEGATIVE) 11/17/17 21:43 Urine Ketones Negative mg/dL (NEGATIVE) 11/17/17 21:43 Urine Blood Negative (NEGATIVE) 11/17/17 21:43 Urine Nitrate Negative (NEGATIVE) 11/17/17 21:43 Urine Bilirubin Negative (NEGATIVE) 11/17/17 21:43 Urine Urobilinogen 2.0 E.U./dL (<1 E.U./dL) H 11/17/17 21:43 Ur Leukocyte Esterase Negative Rachid/uL (NEGATIVE) 11/17/17 21:43 Urine RBC 0 - 2 /hpf (0-2) 11/17/17 21:43 Urine WBC 1 - 3 /hpf (0-6) 11/17/17 21:43 Ur Epithelial Cells 0 - 2 /hpf (0-5) 11/17/17 21:43 Urine Bacteria Mod (NEG) 11/17/17 21:43 Vancomycin Trough 13.9 ug/mL (5.0-10.0) H 11/27/17 08:30 Urine Opiates Screen Positive (NEGATIVE) H 11/17/17 08:30 Urine Methadone Screen Negative (NEGATIVE) 11/17/17 08:30 Ur Barbiturates Screen Negative (NEGATIVE) 11/17/17 08:30 Ur Phencyclidine Scrn Negative (NEGATIVE) 11/17/17 08:30 Ur Amphetamines Screen Negative (NEGATIVE) 11/17/17 08:30 U Benzodiazepines Scrn Negative (NEGATIVE) 11/17/17 08:30 U Oth Cocaine Metabols Positive (NEGATIVE) H 11/17/17 08:30 U Cannabinoids Screen Negative (NEGATIVE) 11/17/17 08:30 Alcohol, Quantitative < 10 mg/dL (0-10) 11/18/17 06:35 HIV 1&2 Ag/Ab, 4th Gen Nonreactive (Nonreactive) 11/17/17 08:00 Attending/Attestation - Attestation I have personally seen and examined this patient.: Yes I have fully participated in the care of the patient.: Yes I have reviewed all pertinent clinical information, including history, physical exam and plan: Yes Notes (Text): 11/27/17 22:05 Patient could not be examined at bedside because he decide to sign out AMA despite of all risks explained to him by the residents.
[2017-11-29 11:13] LABS: HEPATITIS B SURFACE AG Negative (NEGATIVE)
[2017-11-29 11:18] LABS: HEPATITIS A IGM NEGATIVE (NEGATIVE); HEPATITIS B CORE AB NEGATIVE (NEGATIVE)
[2017-11-29 12:49] LABS: HEPATITIS C ANTIBODY REACTIVE (NEGATIVE)
== END 2017-11-27 13:03 | disposition left against medical advice (07) | DRG 901 ==
LOC: ED 02:51 → ERH 05:07 → 5RSO 06:39 → OBSVTOIN 11-18 16:26 → 5RSO 11-19 03:40
PROVIDERS: ADMIT Internal Medicine; ATTEND Internal Medicine
PROC: B246ZZ4 Ultrasonography of Right and Left Heart, Transesophageal (ICD-10-PCS; principal; 2017-11-25 12:00)
DX: A41.02 Sepsis due to Methicillin resistant Staphylococcus aureus (principal); E87.6 Hypokalemia; B19.20 Unspecified viral hepatitis C without hepatic coma; F11.23 Opioid dependence with withdrawal; F14.10 Cocaine abuse, uncomplicated; A41.59 Other Gram-negative sepsis; I10 Essential (primary) hypertension; M77.8 Other enthesopathies, not elsewhere classified; D58.2 Other hemoglobinopathies; F17.210 Nicotine dependence, cigarettes, uncomplicated; D50.9 Iron deficiency anemia, unspecified; E78.00 Pure hypercholesterolemia, unspecified; E78.5 Hyperlipidemia, unspecified; F10.10 Alcohol abuse, uncomplicated; M19.031 Primary osteoarthritis, right wrist; F41.9 Anxiety disorder, unspecified; M54.5 Low back pain; M25.552 Pain in left hip; D18.09 Hemangioma of other sites

== ENCOUNTER 2017-12-31 10:33 | Emergency (ER) | payer MEDICAID, OTHER ==
[2017-12-31 10:33] VITALS: BMI 21.9
[2017-12-31 10:57] VITALS: RESP 18
[2017-12-31 13:23] VITALS: O2SAT 100
[2017-12-31 15:25] VITALS: BP 124/70; PULSE 82; TEMP 98.6
--- NOTE | 2017-12-31 15:41 | US ---
PROCEDURE: Left lower extremity venous US HISTORY: Leg pain and swelling. Evaluate for DVT. PHYSICIAN(S): David Polanco MD. TECHNIQUE: Duplex sonography and color-flow Doppler with graded compression were used to evaluate the deep venous system of the left lower extremity. FINDINGS: The visualized deep venous system of the left lower extremity is sonographically normal and compressible. Normal wave forms and augmentation are seen. There is no sonographic evidence for deep venous thrombosis in the visualized segments of the left lower extremity. There is a large 7.1 x 8.0 lobulated fluid collection in left groin. The differential includes hematoma, abscess, or possibly seroma IMPRESSION: 1. No sonographic evidence for deep venous thrombosis in the visualized segments of the left lower extremity.
--- NOTE | 2017-12-31 19:37 | ED PDOC ---
Arrival/HPI - General Chief Complaint: Back Pain Time Seen by Provider: 12/31/17 11:38 Historian: Patient - History of Present Illness Narrative History of Present Illness (Text): 12/31/17 19:41 47 y/o male with PMH of substance abuse and sciatica presents to the ED c/o left sided lumbar back pain x 3 months. Pt has associated left buttock pain that radiates down the left leg with numbness, paresthesias in left leg. Ambulates with cane at baseline. Pt was admitted here in November to r/o endocarditis and received lumbar imaging, which showed a narrowed joint spaces and degenerative changes. Pt has never seen an orthopedic doctor for his sciatic pain. Took 1 tramadol yesterday without relief. Denies fever, chills, abdominal pain, N/V, diarrhea, chest pain, bowel/bladder incontinence, saddle anesthesia, calf pain/swelling, SOB, cough, rash, swelling or redness of right hand. Past Medical History - Provider Review Nursing Documentation Reviewed: Yes - Infectious Disease Hx of Infectious Diseases: MRSA - Cardiac Other/Comment: "infection in the heart". Endocarditis - Endocrine/Metabolic Hx Hypothyroidism: Yes - Hematological/Oncological Hx Blood Disorders: Yes Hx Hepatitis C: Yes - Musculoskeletal/Rheumatological Hx Arthritis: Yes - Psychiatric Hx Substance Use: Yes Other/Comment: substance abuse - Anesthesia Hx Anesthesia: No Family/Social History - Physician Review Nursing Documentation Reviewed: Yes Family/Social History: No Known Family HX Smoking Status: Heavy Smoker > 10 Cigarettes Daily Hx Alcohol Use: Yes Frequency of alcohol use: Daily Hx Substance Use: Yes Substance used: heroine Allergies/Home Meds Allergies/Adverse Reactions: Allergies No Known Allergies Allergy (Unverified 11/17/17 03:09) Review of Systems - Physician Review All systems were reviewed & negative as marked: Yes - Review of Systems Constitutional: Normal. absent: Fevers Eyes: Normal ENT: Normal Respiratory: Normal. absent: SOB, Cough Cardiovascular: Normal. absent: Chest Pain, Palpitations Gastrointestinal: Normal. absent: Abdominal Pain, Stool Changes, Nausea, Vomiting Genitourinary Male: Normal. absent: Dysuria, Frequency, Hematuria, Urinary Output Changes, Other (penile discharge, testicular pain) Musculoskeletal: Back Pain (lumbar, left side), Myalgias (left leg pain, left bu ttock pain) Skin: Normal, Other (left groin swelling). absent: Rash Neurological: Normal. absent: Headache, Dizziness Endocrine: Normal. absent: Diaphoresis Hemo/Lymphatic: Normal. absent: Adenopathy Physical Exam Vital Signs Reviewed: Yes Vital Signs Temp Pulse Resp BP Pulse Ox 12/31/17 15:19 98.6 F 82 18 124/70 100 12/31/17 13:22 79 18 114/72 100 12/31/17 10:33 98.9 F 82 18 118/56 L 98 Temperature: Afebrile Blood Pressure: Normal Pulse: Regular Respiratory Rate: Normal Appearance: Positive for: Well-Appearing, Non-Toxic, Comfortable Pain Distress: None Mental Status: Positive for: Alert and Oriented X 3 - Systems Exam Head: Present: Atraumatic, Normocephalic Pupils: Present: PERRL Extroacular Muscles: Present: EOMI Conjunctiva: Present: Normal Mouth: Present: Moist Mucous Membranes Nose (External): Present: Atraumatic Nose (Internal): Present: Normal Inspection Neck: Present: Normal Range of Motion. No: MIDLINE TENDERNESS, Paraspinal Tenderness Respiratory/Chest: Present: Clear to Auscultation, Good Air Exchange. No: Respiratory Distress, Accessory Muscle Use Cardiovascular: Present: Regular Rate and Rhythm, Normal S1, S2. No: Murmurs Abdomen: Present: Normal Bowel Sounds. No: Tenderness, Distention, Peritoneal Signs Genitourinary Male: Present: Normal External Genitalia. No: Circumcised Penis, Lesions, Penile Discharge, Testicle Tenderness, Penile Swelling, Masses, Erythema, Hernias, Testicle Swelling Back: Present: Normal Inspection, Paraspinal Tenderness (lumbar, left). No: CVA Tenderness, Midline Tenderness Upper Extremity: Present: Normal Inspection, Normal ROM, NORMAL PULSES, Neurovascularly Intact, Capillary Refill < 2s. No: Cyanosis, Edema, Tenderness, Swelling, Erythema, Temperature Abnormalties, Deformity Lower Extremity: Present: Normal Inspection, Tenderness (left groin tenderness), Neurovascularly Intact, Capillary Refill < 2 s. No: Edema, CALF TENDERNESS, Normal ROM (decreased left side secondary to sciatic pain), Rachael's Sign, Swelling, Erythema, Deformity, Temperature Abnormalties Neurological: Present: GCS=15, CN II-XII Intact, Speech Normal Skin: Present: Warm, Dry, Normal Color. No: Rashes Psychiatric: Present: Alert, Oriented x 3, Normal Insight, Normal Concentration Medical Decision Making ED Course and Treatment: 12/31/17 19:37 47 y/o male with PMH of substance abuse and sciatica presents to the ED c/o left sided lumbar back pain x 3 months. Pt has associated left buttock pain that radiates down the left leg with numbness, paresthesias in left leg. Ambulates with cane at baseline. Pt was admitted here in November to r/o endocarditis and received lumbar imaging, which showed a narrowed joint spaces and degenerative changes. Pt has never seen an orthopedic doctor for his sciatic pain. Took 1 tramadol yesterday without relief. Denies fever, chills, abdominal pain, N/V, diarrhea, chest pain, bowel/bladder incontinence, saddle anesthesia, calf pain/swelling, SOB, cough, rash, swelling or redness of right hand. Physical exam: Afebrile Normal cardiac, abdominal, and pulmonary exams. Back: normal inspection. mild tenderness to lumbar paraspinal muscles. no midline tenderness. positive left sided straight leg raise. Hands: FROM, normal inspection, neurovascularly intact. no redness or swelling. Neuro: full strength and sensation b/l. distal pulses intact. Mild left groin swelling and tenderness without redness. will get duplex L leg to r/o DVT will give toradol 60mg IM pt reports decreased pain Discussed with pt the importance of orthopedic followup. 12/31/17 19:42 Impression: sciatica, muscle strain Plan: Take flexeril once every 8 hours as needed for pain Followup with clinic within 2 days Followup with orthopedic doctor within 2 days Return to ED if symptoms persist or worsen Plan discussed with pt who agrees and understands. Pt comfortable with discharge home. Reassessment Condition: Re-examined, Improved - RAD Interpretation Radiology Orders: 12/31/17 11:38 DUPLEX LOWER EXTRM VEIN LEFT [US] Stat - Medication Orders Current Medication Orders: Discontinued Medications Ketorolac Tromethamine (Toradol) 60 mg IM STAT STA Stop: 12/31/17 11:58 Last Admin: 12/31/17 12:10 Dose: 60 mg PATTIE Pain Assessment Document 12/31/17 12:10 HI (Rec: 12/31/17 12:10 HI [id number]) Pain Reassessment Is this a pain reassessment? No Sleep Is patient sleeping during reassessment? No Presence of Pain Presence of Pain Yes IM Administration Charges Document 12/31/17 12:10 HI (Rec: 12/31/17 12:10 OR [id number]) Injection Site MAR Injection Site Right Gluteus Tr Charges for Administration # of IM Administrations 1 Disposition/Present on Arrival - Present on Arrival Any Indicators Present on Arrival: No History of DVT/PE: No History of Uncontrolled Diabetes: No Urinary Catheter: No History of Decub. Ulcer: No History Surgical Site Infection Following: None - Disposition Have Diagnosis and Disposition been Completed?: Yes Diagnosis: Sciatica Disposition: HOME/ ROUTINE Disposition Time: 14:30 Patient Plan: Discharge Condition: GOOD Discharge Instructions (ExitCare): Sciatica Additional Instructions: Take flexeril once every 8 hours as needed for pain Followup with clinic within 2 days Followup with orthopedic doctor within 2 days Return to ED if symptoms persist or worsen Prescriptions: Cyclobenzaprine [Flexeril] 5 mg PO Q8H PRN 7 Days #21 tab PRN Reason: Muscle Spasm Referrals: Cheng Alvarez III, MD [Medical Doctor] - Follow up with primary Shanice Dawkins MD [Medical Doctor] - Follow up with primary Forms: [employer] (Ukrainian), WORK NOTE
== END 2017-12-31 15:24 | disposition home or self-care (01) ==
LOC: ED 10:33
DX: M54.30 Sciatica, unspecified side (principal); E03.9 Hypothyroidism, unspecified; F17.210 Nicotine dependence, cigarettes, uncomplicated
CPT/HCPCS: 93971; 96372; 99284; J1885

== ENCOUNTER 2018-02-21 00:49 | Inpatient (IN) | payer MEDICAID, OTHER ==
[2018-02-21 01:03] VITALS: BMI 25.0
[2018-02-21] MEDS ORDERED: Sodium Chloride 0.9% 1,000 ML IV STA (01:44)
[2018-02-21] MEDS ORDERED: Morphine 4 mg/ml ISec IVP STA (01:47)
[2018-02-21 02:26] LABS: URINE BILIRUBIN NEGATIVE (NEGATIVE); URINE BLOOD LARGE (NEGATIVE); URINE GLUCOSE (UA) NEGATIVE (NEGATIVE); URINE LEUKOCYTE ESTERASE NEGATIVE Leu/uL (NEGATIVE); URINE PROTEIN 30 mg/dL (<30 mg/dL); URINE UROBILINOGEN 0.2 E.U./dL (<1 E.U./dL)
[2018-02-21 02:27] LABS: BASO # 0.02 K/mm3 (0.0-2.0); BASO % 0.2 % (0.0-3.0); EOS # 0.2 (0.0-0.7); EOS % 1.5 % (1.5-5.0); GRAN # 9.44 (1.4-6.5); LYMPH # 2.4 (1.2-3.4); LYMPH % 18.4 % (22.0-35.0); MEAN CELL VOLUME 70.9 fl (80.0-105.0); MEAN CORPUSCULAR HEMOGLOBIN 22.4 pg (25.0-35.0); MEAN CORPUSCULAR HGB CONC 31.6 g/dl (31.0-37.0); MEAN PLATELET VOLUME 7.9 fl (7.0-11.0); MONO # 0.8 (0.1-0.6); MONO % 5.9 % (1.0-6.0); RBC 3.57 10^6/uL (3.5-6.1); RED CELL DISTRIBUTION WIDTH 17.8 % (11.5-14.5); URINE APPEARANCE CLEAR (CLEAR); URINE COLOR YELLOW (YELLOW); WHITE BLOOD COUNT 12.8 10^3/uL (4.5-11.0)
[2018-02-21 02:35] LABS: ALB/GLOB RATIO 0.7 (1.1-1.8); ALBUMIN 3.9 g/dL (3.0-4.8); ALT/SGPT 18 U/L (7-56); AST/SGOT 35 U/L (17-59); BLOOD UREA NITROGEN 17 mg/dL (7-21); CALCIUM 9.8 mg/dL (8.4-10.5); GFR NON-AFRICAN AMERICAN > 60; LIPASE 21 U/L (23-300)
[2018-02-21] MEDS ORDERED: Iohexol 350 MG/100 ML VIAL ONE (02:40)
[2018-02-21 02:47] LABS: URINE BACTERIA OCC (NEG); URINE EPITHELIAL CELLS 0 - 2 /hpf (0-5); URINE RBC 20 - 25 /hpf (0-2); URINE WBC 0 - 2 /hpf (0-6)
--- NOTE | 2018-02-21 04:04 | ED PDOC ---
Arrival/HPI - General Chief Complaint: Lower Extremity Problem/Injury Time Seen by Provider: 02/21/18 00:50 Historian: Patient - History of Present Illness Narrative History of Present Illness (Text): 02/21/18 01:40 47 year old male, whose past medical history includes substance abuse and sciatica, who presents to the Emergency department complaining of bulge in left groin which has been increasing in size and pain for past 3 days. Patient is unable to get into comfortable position. Patient reports "I have a huge mass on my left groin." Patient states he has not used any intravenous drugs in approximately 9 months. Patient ambulates with a walker due to sciatica. Patient denies trauma, dysuria, hematuria, fever, or any other complaints. Time/Duration: > week (patient notes bulge in left groin which has been increasing in size and pain for past 3 days) Symptom Onset: Sudden Symptom Course: Unchanged Activities at Onset: Light Past Medical History - Provider Review Nursing Documentation Reviewed: Yes - Infectious Disease Hx of Infectious Diseases: None - Cardiac Hx Cardiac Disorders: Yes Other/Comment: "infection in the heart". Endocarditis - Pulmonary Hx Respiratory Disorders: Yes Hx Asthma: Yes - Neurological Hx Neurological Disorder: No - HEENT Hx HEENT Disorder: No - Renal Hx Renal Disorder: No - Endocrine/Metabolic Hx Endocrine Disorders: Yes Hx Hypothyroidism: Yes - Hematological/Oncological Hx Blood Disorders: Yes Hx Hepatitis C: Yes - Integumentary Hx Dermatological Disorder: No - Musculoskeletal/Rheumatological Hx Musculoskeletal Disorders: Yes Hx Arthritis: Yes - Gastrointestinal Hx Gastrointestinal Disorders: No - Genitourinary/Gynecological Hx Genitourinary Disorders: No - Psychiatric Hx Psychophysiologic Disorder: Yes Hx Substance Use: Yes Other/Comment: substance abuse - Anesthesia Hx Anesthesia: No Family/Social History - Physician Review Nursing Documentation Reviewed: Yes Family/Social History: No Known Family HX Smoking Status: Heavy Smoker > 10 Cigarettes Daily Hx Alcohol Use: Yes Hx Substance Use: Yes Substance used: heroine Allergies/Home Meds Allergies/Adverse Reactions: Allergies No Known Allergies Allergy (Unverified 11/17/17 03:09) Review of Systems - Physician Review All systems were reviewed & negative as marked: Yes - Review of Systems Constitutional: Normal. absent: Fevers Genitourinary Male: Normal. absent: Dysuria, Hematuria Skin: Other (patient reports bulge in left groin which has been increasing in size and pain for past 3 days). absent: Normal Physical Exam Vital Signs Reviewed: Yes Vital Signs Temp Pulse Resp BP Pulse Ox 02/21/18 01:03 98.5 F 107 H 19 120/77 96 Temperature: Afebrile Blood Pressure: Normal Pulse: Tachycardic Respiratory Rate: Normal Appearance: Positive for: Well-Appearing, Non-Toxic Pain Distress: Moderate (pt moderately uncomfortable) Mental Status: Positive for: Alert and Oriented X 3 - Systems Exam Head: Present: Atraumatic, Normocephalic Pupils: Present: PERRL Extroacular Muscles: Present: EOMI Conjunctiva: Present: Normal Mouth: Present: Moist Mucous Membranes Neck: Present: Normal Range of Motion Respiratory/Chest: Present: Clear to Auscultation, Good Air Exchange. No: Respiratory Distress, Accessory Muscle Use Cardiovascular: Present: Regular Rate and Rhythm, Normal S1, S2. No: Murmurs Abdomen: No: Tenderness, Distention, Peritoneal Signs Back: Present: Normal Inspection Upper Extremity: Present: Normal Inspection. No: Cyanosis, Edema Lower Extremity: Present: NORMAL PULSES (good pulses in legs), Other (palpable, hard mass just medial to anterior left hip joint. very tender to touch.). No: Normal Inspection Neurological: Present: GCS=15, CN II-XII Intact, Speech Normal Skin: Present: Warm, Dry, Normal Color. No: Rashes Psychiatric: Present: Alert, Oriented x 3, Normal Insight, Normal Concentration Medical Decision Making ED Course and Treatment: 02/21/18 01:35 Impression: 47 year old male who presents to the Emergency department for bulge in left groin which has been increasing in size and pain for past 3 days. Plan: -- CT of Abd&Pelvis IV contrast -- Labs -- CBC (with differential) -- Morphine 4mg IVP -- IV fluids -- Urine culture -- ED NPO (ED only order) -- Urinalysis w/micro -- Reassess and disposition Prior Visits: Notes and results from previous visits were reviewed. Patient was last seen in the emergency department on 12/31/17 for left sided lumbar back pain x 3 months. Patient was discharged home in good condition, prescribed Flexerilm and directed to follow up with clinic in 2 days, orthopedic docor within 2 days, and to follow up with PMD. Progress Notes: 02/21/18 04:40 I spoke to the hospitalist and surgery. Pt to be admitted to the medical floor. - Lab Interpretations Lab Results: 02/21/18 02:09 02/21/18 02:09 Lab Results 02/21/18 02:09: Sodium 134, Potassium 3.9, Chloride 97 L, Carbon Dioxide 29, Anion Gap 12, BUN 17, Creatinine 0.7 L, Est GFR ( Amer) > 60, Est GFR (Non-Af Amer) > 60, Random Glucose 96, Calcium 9.8, Magnesium 1.9, Total Bilirubin 0.3, AST 35, ALT 18, Alkaline Phosphatase 74, Total Protein 9.3 H, Albumin 3.9, Globulin 5.4, Albumin/Globulin Ratio 0.7 L, Lipase 21 L 02/21/18 02:09: Urine Color Yellow, Urine Appearance Clear, Urine pH 6.0, Ur Specific [place] 1.025, Urine Protein 30 H, Urine Glucose (UA) Negative, Urine Ketones Negative, Urine Blood Large H, Urine Nitrate Negative, Urine Bilirubin Negative, Urine Urobilinogen 0.2, Ur Leukocyte Esterase Negative, Urine RBC 20 - 25, Urine WBC 0 - 2, Ur Epithelial Cells 0 - 2, Urine Bacteria Occ 02/21/18 02:09: WBC 12.8 H, RBC 3.57, Hgb 8.0 L, Hct 25.3 L, MCV 70.9 L, MCH 22.4 L, MCHC 31.6, RDW 17.8 H, Plt Count 541 H, MPV 7.9, Gran % 74.0 H, Lymph % (Auto) 18.4 L, [place] % (Auto) 5.9, Eos % (Auto) 1.5, Baso % (Auto) 0.2, Gran # 9.44 H, Lymph # (Auto) 2.4, [place] # (Auto) 0.8 H, Eos # (Auto) 0.2, Baso # (Auto) 0.02 - RAD Interpretation Narrative RAD Interpretations (Text): CT of abdomen & pelvis reviewed by radiologist, shows: Electronically signed on Feb 21, 2018 4:08:30 AM EST by: Rocco Levin M.D. IMPRESSION: Erosive heterogeneous lytic changes of the left femoral head and the corresponding aspect of the left acetabulum. Associated joint effusion. Associated heterogeneous periosteal new bone formation. Secondary joint effusion. Associated multiloculated abscess formation measuring 13.7x11.2x9.1 cm in its largest craniocaudal, anteroposterior and transverse dimensions respectively arising from the left the hip joint synovium extending to the surrounding left iliacus muscle and adjacent periarticular muscles/soft tissues. Adjacent heterogeneous lytic changes of the left iliac bone extending to the left sacroiliac joint and the corresponding aspect of the left sacral ala. 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 Clinical evaluation and followup exam is suggested to exclude underlying neoplastic pathology. Radiology Orders: 02/21/18 01:44 ABD & PELVIS IV CONTRAST ONLY [CT] Stat Pasting Machine Operator: Radiologist - Medication Orders Current Medication Orders: Sodium Chloride (Sodium Chloride 0.9%) 1,000 mls @ 100 mls/hr IV .Q10H STA Stop: 02/21/18 11:43 Last Admin: 02/21/18 02:05 Dose: 100 mls/hr eMAR Start Stop Document 02/21/18 02:05 AD (Rec: 02/21/18 02:22 [id number] Intravenous Solution Start Date 02/21/18 Start Time 02:05 Discontinued Medications Morphine Sulfate (Morphine) 4 mg IVP STAT STA Stop: 02/21/18 01:48 Last Admin: 02/21/18 02:05 Dose: 4 mg MAR Pain Assessment Document 02/21/18 02:05 AD (Rec: 02/21/18 02:22 AD [id number]) Pain Reassessment Is this a pain reassessment? No Presence of Pain Presence of Pain Yes Pain Scale Used Protocol: PSCALES Pain Scale Used Numeric IVP Administration Document 02/21/18 02:05 AD (Rec: 02/21/18 02:22 AD [id number]) Charges for Administration # of IVP Administrations 1 - Scribe Statement The provider has reviewed the documentation as recorded by the Scribmerle Mack All medical record entries made by the Scribmerle were at my direction and persona lly dictated by me. I have reviewed the chart and agree that the record accurately reflects my personal performance of the history, physical exam, medical decision making, and the department course for this patient. I have also personally directed, reviewed, and agree with the discharge instructions and disposition. Disposition/Present on Arrival - Present on Arrival Any Indicators Present on Arrival: No History of DVT/PE: No History of Uncontrolled Diabetes: No Urinary Catheter: No History of Decub. Ulcer: No History Surgical Site Infection Following: None - Disposition Have Diagnosis and Disposition been Completed?: Yes Diagnosis: Pelvic abscess Disposition: HOSPITALIZED Disposition Time: 04:10 Condition: FAIR
[2018-02-21] MEDS ORDERED: Vancomycin 1gm in NS 250ml 1 GM/250 ML BAG IVPB STA (04:47)
[2018-02-21] MEDS ORDERED: Piperacill/Tazo 4.5gm in NS 4.5 GM/100 ML BAG IVPB STA (04:47)
[2018-02-21] MEDS ORDERED: Oxycodone/Acetaminophen 5/325 mg Tab PO PRN (05:48)
[2018-02-21] MEDS ORDERED: Morphine 4 mg/ml ISec IVP PRN (05:48)
--- NOTE | 2018-02-21 06:01 | CP.PCM.CON ---
History of Present Illness - History of Present Illness History of Present Illness: Surgery Consult Note: Dr. Hsu 47M pmhx significant for HepC not on any current medications polysubstance abuse, MRSA bacteremia presents to [facility] ED w/ pain and a "buldge" in left groin that started 3 days ago. Patient is unable to walk or move hip due to pain. Of note, patient has had chronic back pain and siatic pain over the last 4 months. During workup in the ED, CT scan showed large groin abscess invading into the left hip joint measuring [id number] invading into the left hip. questionable osteomyelitis sacral and sacroiliac joint. General Surgery was called for evaluation. During encounter, patient was not able to sit still, stated that pain is unbearable. Decreased range of motion over the last 48 hours. Associated intermittent numbness and tingling down left lower extremity. Deneis fevers, chills, nausea, vomiting, diarrhea, shortness of breath, changes in urinary habits. PMH: Stated above PSH: R Carpal tunnel release ALL: NKDA Socialhx: 13 pack/yr smoking hx, drinks 2 24oz beers/day, sniffs cocaine and 10 bags/heroin/day. Last used today before coming in. Last injected 8mos ago FH: non-contributory 12 pt ROS conducted, negative otherwise stated above Review of Systems - Review of Systems All systems: reviewed and no additional remarkable complaints except - Constitutional Constitutional: As Per HPI Past Patient History - Infectious Disease Hx of Infectious Diseases: None - Past Social History Smoking Status: Heavy Smoker > 10 Cigarettes Daily - CARDIAC Hx Cardiac Disorders: Yes Other/Comment: "infection in the heart". Endocarditis - PULMONARY Hx Respiratory Disorders: Yes Hx Asthma: Yes - NEUROLOGICAL Hx Neurological Disorder: No - HEENT Hx HEENT Problems: No - RENAL Hx Chronic Kidney Disease: No - ENDOCRINE/METABOLIC Hx Endocrine Disorders: Yes Hx Hypothyroidism: Yes - HEMATOLOGICAL/ONCOLOGICAL Hx Blood Disorders: Yes Hx Hepatitis C: Yes - INTEGUMENTARY Hx Dermatological Problems: No - MUSCULOSKELETAL/RHEUMATOLOGICAL Hx Musculoskeletal Disorders: Yes Hx Arthritis: Yes - GASTROINTESTINAL Hx Gastrointestinal Disorders: No - GENITOURINARY/GYNECOLOGICAL Hx Genitourinary Disorders: No - PSYCHIATRIC Hx Psychophysiologic Disorder: Yes Hx Substance Use: Yes Other/Comment: substance abuse - SURGICAL HISTORY Hx Surgeries: No - ANESTHESIA Hx Anesthesia: No Meds Allergies/Adverse Reactions: Allergies Allergy/AdvReac Type Severity Reaction Status Date / Time No Known Allergies Allergy Unverified 11/17/17 03:09 - Medications Medications: Current Medications Acetaminophen (Tylenol 325mg Tab) 650 mg PO Q6 PRN PRN Reason: Pain, Mild (1-3) Enoxaparin Sodium (Lovenox) 40 mg SC DAILY KIMBERLEE; Protocol Famotidine (Pepcid) 20 mg PO DAILY KIMBERLEE Sodium Chloride (Sodium Chloride 0.9%) 1,000 mls @ 100 mls/hr IV .Q10H STA Stop: 02/21/18 11:43 Last Admin: 02/21/18 02:05 Dose: 100 mls/hr Vancomycin HCl (Vancomycin 1gm) 1 gm in 250 mls @ 167 mls/hr IVPB STAT STA; Protocol Stop: 02/21/18 06:16 Last Admin: 02/21/18 05:48 Dose: 167 mls/hr Lorazepam (Ativan) 2 mg IVP Q4H PRN; Protocol PRN Reason: Symptoms of alcohol withdrawl Morphine Sulfate (Morphine) 4 mg IVP Q4 PRN PRN Reason: Pain, severe (8-10) Ondansetron HCl (Zofran Inj) 4 mg IVP Q6 PRN PRN Reason: Nausea/Vomiting Physical Exam - Constitutional Appears: Non-toxic, No Acute Distress - Head Exam Head Exam: ATRAUMATIC - Eye Exam Eye Exam: EOMI - ENT Exam ENT Exam: Mucous Membranes Moist - Respiratory Exam Respiratory Exam: NORMAL BREATHING PATTERN. absent: Accessory Muscle Use, Respiratory Distress - Cardiovascular Exam Cardiovascular Exam: +S1, +S2. absent: Bradycardia, Tachycardia - GI/Abdominal Exam GI & Abdominal Exam: Soft. absent: Firm, Guarding, Hernia, Tenderness - Rectal Exam Rectal Exam: NORMAL INSPECTION. absent: Hemorrhoids, Fecal Impaction Additional comments: stool in rectal vault good tone no blood no palpable mass or abscess appreciated - Exam Exam: NORMAL INSPECTION - Extremities Exam Extremities exam: Negative for: calf tenderness Additional comments: Left lower extremity swelling Decreased range of motion of right hip - Neurological Exam Neurological exam: Alert, Oriented x3 - Skin Skin Exam: Intact, Warm Results - Vital Signs Recent Vital Signs: Last Vital Signs Temp 98.5 F 02/21/18 01:03 Pulse 107 H 02/21/18 01:03 Resp 19 02/21/18 01:03 BP 120/77 02/21/18 01:03 Pulse Ox 96 02/21/18 01:03 - Labs Result Diagrams: 02/21/18 02:09 02/21/18 02:09 Labs: Laboratory Results - last 24 hr 02/21/18 02/21/18 02/21/18 02:09 02:09 02:09 WBC 12.8 H RBC 3.57 Hgb 8.0 L Hct 25.3 L MCV 70.9 L MCH 22.4 L MCHC 31.6 RDW 17.8 H Plt Count 541 H MPV 7.9 Gran % 74.0 H Lymph % (Auto) 18.4 L [place] % (Auto) 5.9 Eos % (Auto) 1.5 Baso % (Auto) 0.2 Gran # 9.44 H Lymph # (Auto) 2.4 [place] # (Auto) 0.8 H Eos # (Auto) 0.2 Baso # (Auto) 0.02 Sodium 134 Potassium 3.9 Chloride 97 L Carbon Dioxide 29 Anion Gap 12 BUN 17 Creatinine 0.7 L Est GFR ( Amer) > 60 Est GFR (Non-Af Amer) > 60 Random Glucose 96 Calcium 9.8 Magnesium 1.9 Total Bilirubin 0.3 AST 35 ALT 18 Alkaline Phosphatase 74 Total Protein 9.3 H Albumin 3.9 Globulin 5.4 Albumin/Globulin Ratio 0.7 L Lipase 21 L Urine Color Yellow Urine Appearance Clear Urine pH 6.0 Ur Specific [place] 1.025 Urine Protein 30 H Urine Glucose (UA) Negative Urine Ketones Negative Urine Blood Large H Urine Nitrate Negative Urine Bilirubin Negative Urine Urobilinogen 0.2 Ur Leukocyte Esterase Negative Urine RBC 20 - 25 Urine WBC 0 - 2 Ur Epithelial Cells 0 - 2 Urine Bacteria Occ Assessment & Plan - Assessment and Plan (Free Text) Assessment: 47M w/ Left hip abscess involving joint w/ septic joint, questionable osteomyelitis Plan: - Recommend STAT Ortho Consult and recommendations - No general surgery intervention at this time - IVAbx - NPO - disucssed w/ Dr. Hsu General Surgery Attending PGY2
--- NOTE | 2018-02-21 06:09 | CP.PCM.HP ---
History of Present Illness - History of Present Illness History of Present Illness: Rebeca Acharya PGY1 H&P for Dr. Julio Vasquez Pt is a 47yo M w PMH of poly-substance abuse, sciatica, Hep C who presents to the ED with L hip pain. He reports pain in the L hip and L sided lower back for 4 months, but acute worsening of the pain and noticing a bulge in the groin for the past 3 days. He denies falling or any trauma to the area. He reports an "unbearable" pain that he rates 10/10, for which he took ibuprofen at home with minimal relief. He reports associated swelling in the L leg, intermittent numbness and tingling, and radiation of the pain to his back, L buttock, and down the L leg. He also reports 1 episode of NB/NB vomiting at home. He says he has not been able to walk or sit due to the pain. He denies any fever, chills, shortness of breath, abdominal pain, nausea, diarrhea, dysuria. 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 SxH: R carpal tunnel FamH: unknown, adopted SocH: 13 pack/yr smoking hx, drinks 2 24oz beers/day, sniffs cocaine and 10 bags/heroin/day. Last used today before coming in. Last injected 8mos ago Allergies: NKDA Meds: none PMD: none Present on Admission - Present on Admission Any Indicators Present on Admission: No Review of Systems - Review of Systems Review of Systems: as per HPI Past Patient History - Infectious Disease Hx of Infectious Diseases: None - Past Social History Smoking Status: Heavy Smoker > 10 Cigarettes Daily - CARDIAC Hx Cardiac Disorders: Yes Other/Comment: "infection in the heart". Endocarditis - PULMONARY Hx Respiratory Disorders: Yes Hx Asthma: Yes - NEUROLOGICAL Hx Neurological Disorder: No - HEENT Hx HEENT Problems: No - RENAL Hx Chronic Kidney Disease: No - ENDOCRINE/METABOLIC Hx Endocrine Disorders: Yes Hx Hypothyroidism: Yes - HEMATOLOGICAL/ONCOLOGICAL Hx Blood Disorders: Yes Hx Hepatitis C: Yes - INTEGUMENTARY Hx Dermatological Problems: No - MUSCULOSKELETAL/RHEUMATOLOGICAL Hx Musculoskeletal Disorders: Yes Hx Arthritis: Yes - GASTROINTESTINAL Hx Gastrointestinal Disorders: No - GENITOURINARY/GYNECOLOGICAL Hx Genitourinary Disorders: No - PSYCHIATRIC Hx Psychophysiologic Disorder: Yes Hx Substance Use: Yes Other/Comment: substance abuse - SURGICAL HISTORY Hx Surgeries: No - ANESTHESIA Hx Anesthesia: No Meds Allergies/Adverse Reactions: Allergies Allergy/AdvReac Type Severity Reaction Status Date / Time No Known Allergies Allergy Unverified 11/17/17 03:09 Physical Exam - Constitutional Appears: In Acute Distress - Head Exam Head Exam: ATRAUMATIC, NORMOCEPHALIC - Eye Exam Eye Exam: EOMI, Normal appearance, PERRL Pupil Exam: NORMAL ACCOMODATION - ENT Exam ENT Exam: Mucous Membranes Moist - Neck Exam Neck exam: Positive for: Normal Inspection - Respiratory Exam Respiratory Exam: Clear to Auscultation Bilateral, NORMAL BREATHING PATTERN. absent: Rales, Rhonchi, Wheezes - Cardiovascular Exam Cardiovascular Exam: Tachycardia, REGULAR RHYTHM, +S1, +S2. absent: Gallop, Rubs, Systolic Murmur - GI/Abdominal Exam GI & Abdominal Exam: Normal Bowel Sounds, Soft. absent: Distended, Tenderness - Extremities Exam Extremities exam: Positive for: pedal edema Additional comments: pitting edema in LLE, xerosis 3x4cm indurated nodule in L groin, no surrounding erythema or drainage - Back Exam Back exam: NORMAL INSPECTION - Neurological Exam Neurological exam: Alert, Oriented x3 Additional comments: no sensory deficit in LLE - Psychiatric Exam Psychiatric exam: Anxious - Skin Skin Exam: Dry Results - Vital Signs Recent Vital Signs: Last Vital Signs Temp 98.5 F 02/21/18 01:03 Pulse 107 H 02/21/18 01:03 Resp 19 02/21/18 01:03 BP 120/77 02/21/18 01:03 Pulse Ox 96 02/21/18 01:03 - Labs Result Diagrams: 02/21/18 02:09 02/21/18 02:09 Labs: Laboratory Results - last 24 hr 02/21/18 02/21/18 02/21/18 02:09 02:09 02:09 WBC 12.8 H RBC 3.57 Hgb 8.0 L Hct 25.3 L MCV 70.9 L MCH 22.4 L MCHC 31.6 RDW 17.8 H Plt Count 541 H MPV 7.9 Gran % 74.0 H Lymph % (Auto) 18.4 L [place] % (Auto) 5.9 Eos % (Auto) 1.5 Baso % (Auto) 0.2 Gran # 9.44 H Lymph # (Auto) 2.4 [place] # (Auto) 0.8 H Eos # (Auto) 0.2 Baso # (Auto) 0.02 Sodium 134 Potassium 3.9 Chloride 97 L Carbon Dioxide 29 Anion Gap 12 BUN 17 Creatinine 0.7 L Est GFR ( Amer) > 60 Est GFR (Non-Af Amer) > 60 Random Glucose 96 Calcium 9.8 Magnesium 1.9 Total Bilirubin 0.3 AST 35 ALT 18 Alkaline Phosphatase 74 Total Protein 9.3 H Albumin 3.9 Globulin 5.4 Albumin/Globulin Ratio 0.7 L Lipase 21 L Urine Color Yellow Urine Appearance Clear Urine pH 6.0 Ur Specific [place] 1.025 Urine Protein 30 H Urine Glucose (UA) Negative Urine Ketones Negative Urine Blood Large H Urine Nitrate Negative Urine Bilirubin Negative Urine Urobilinogen 0.2 Ur Leukocyte Esterase Negative Urine RBC 20 - 25 Urine WBC 0 - 2 Ur Epithelial Cells 0 - 2 Urine Bacteria Occ Assessment & Plan - Assessment and Plan (Free Text) Assessment: 47yo M w PMH of poly-substance abuse, sciatica, Hep C who presents to the ED with L hip pain, admitted for further evaluation and treatment of L hip abscess Plan: L hip abscess - CT abd/pel: multiloculated abscess from L hip synovium to L iliac muscle, suggestive of disseminated L iliac osteomyelitis/L sacroiliac septic arthritis - pt afebrile - WBC 12.8 - CRP 9.3 - f/u BCx, UCx - f/u ESR - vanco 1g IVPB daily - zosyn 3.375g IV q8h - tylenol 650mg PO q6h PRN mild pain - percocet 1tab PO q4h PRN mod pain - morphine 4mg IV q4h PRN severe pain - warm compresses q2h, as per Gen Sx - ID consulted, Dr. Olmstead - f/u recs - Gen Sx consulted, Dr. Hsu - f/u recs - Ortho consulted, Dr. Day - f/u recs - PT/OT - NPO Microcytic Anemia - H/H 8.0/25.3 - UA: large blood - RDW 17.8, elevated - f/u smear - TIBC, Fe, %sat - ferritin - B12, folate - retic count Polysubstance Abuse - f/u UDS - CIWA protocol - seizure precautions - fall precautions - ativan 2mg IV q4h PRN - zofran 4mg IV q6h PRN - counseled on cessation PPx DVT: heparin 5000u sc q8h NPO Pt seen and case reviewed with Dr. Julio Vasquez
[2018-02-21] MEDS ORDERED: Morphine 2 mg/ml ISec IVP STA (08:10)
[2018-02-21 08:29] LABS: BASO # 0.01 K/mm3 (0.0-2.0); BASO % 0.1 % (0.0-3.0); EOS # 0.2 (0.0-0.7); EOS % 2.2 % (1.5-5.0); GRAN # 6.84 (1.4-6.5); GRAN % 69.7 % (50.0-68.0); HEMOGLOBIN 7.6 g/dL (14.0-18.0); LYMPH % 20.8 % (22.0-35.0); MEAN CELL VOLUME 70.8 fl (80.0-105.0); MEAN PLATELET VOLUME 7.6 fl (7.0-11.0); MONO # 0.7 (0.1-0.6); MONO % 7.2 % (1.0-6.0); RBC 3.46 10^6/uL (3.5-6.1); RED CELL DISTRIBUTION WIDTH 17.7 % (11.5-14.5); WHITE BLOOD COUNT 9.8 10^3/uL (4.5-11.0)
[2018-02-21 08:33] LABS: INR 1.14; PARTIAL THROMBOPLASTIN TIME 29.2 Seconds (25.1-36.5); PROTHROMBIN TIME 13.1 SECONDS (9.4-12.5)
[2018-02-21 08:41] LABS: IRON 19 ug/dL (45-180)
[2018-02-21 08:50] LABS: % IRON SATURATION 7 % (20-55); TOTAL IRON BINDING CAPACITY 254 ug/dL (261-462)
--- NOTE | 2018-02-21 09:35 | RAD ---
Date of service: 02/21/2018 HISTORY: pre op COMPARISON: 11/23/2017 FINDINGS: LUNGS: No active pulmonary disease. PLEURA: No significant pleural effusion identified, no pneumothorax apparent. CARDIOVASCULAR: No aortic atherosclerotic calcification present. Normal cardiac size. No pulmonary vascular congestion. OSSEOUS STRUCTURES: No significant abnormalities. VISUALIZED UPPER ABDOMEN: Normal. OTHER FINDINGS: None. IMPRESSION: No active disease.
[2018-02-21] MEDS ORDERED: Enoxaparin 40 mg Syringe SC SCH (10:00)
[2018-02-21] MEDS ORDERED: Vancomycin 1gm in NS 250ml 1 GM/250 ML BAG IVPB SCH ×2 (10:00→17:45)
--- NOTE | 2018-02-21 10:52 | CT ---
Date of service: 02/21/2018 PROCEDURE: CT Abdomen and Pelvis with and without intravenous contrast HISTORY: swelling/tenderness to left groin ? abscess COMPARISON: None. TECHNIQUE: Axial images of the abdomen were obtained in the pre contrast, portal venous and delayed phases of enhancement. Coronal and sagittal reformats were generated. Contrast dose: Radiation dose: Total exam DLP = 362.83 mGy-cm. This CT exam was performed using one or more of the following dose reduction techniques: Automated exposure control, adjustment of the mA and/or kV according to patient size, and/or use of iterative reconstruction technique. FINDINGS: LOWER THORAX: Unremarkable. LIVER: Unremarkable. No gross lesion or ductal dilatation. GALLBLADDER AND BILE DUCTS: Unremarkable. PANCREAS: Unremarkable. No gross lesion or ductal dilatation. SPLEEN: Unremarkable. ADRENALS: Unremarkable. No mass. KIDNEYS AND URETERS: Unremarkable. No hydronephrosis. No solid mass. VASCULATURE: Unremarkable. No aortic aneurysm. No aortic atherosclerotic calcification or mural plaque present. BOWEL: Unremarkable. No obstruction. No gross mural thickening. APPENDIX: Normal appendix. PERITONEUM: Unremarkable. No free fluid. No free air. LYMPH NODES: Unremarkable. No enlarged lymph nodes. BLADDER: Unremarkable. REPRODUCTIVE: Unremarkable. BONES: Extensive erosive lytic changes of the left femoral head and the corresponding ax packed of the left acetabulum with associated large joint effusion and periosteal new bone formation. Secondary joint effusion with multiloculated abscess measuring 13.7 x 11.2 x 9.1 centimeters in craniocaudad, AP and transverse dimensions. This arises from the left hip joint synovium extending into the surrounding left iliacus muscle and adjacent periarticular muscles/soft tissues. Associated heterogeneous lytic changes of the left iliac bone extending into the left sacroiliac joint and the corresponding aspect of the left sacral ala. Disseminated left iliac osteomyelitis/left sacroiliac septic arthritis. OTHER FINDINGS: None. IMPRESSION: Extensive erosive lytic changes of the left femoral head and the corresponding ax packed of the left acetabulum with associated large joint effusion and periosteal new bone formation. Secondary joint effusion with multiloculated abscess measuring 13.7 x 11.2 x 9.1 centimeters in craniocaudad, AP and transverse dimensions. This arises from the left hip joint synovium extending into the surrounding left iliacus muscle and adjacent periarticular muscles/soft tissues. Associated heterogeneous lytic changes of the left iliac bone extending into the left sacroiliac joint and the corresponding aspect of the left sacral ala. Disseminated left iliac osteomyelitis/left sacroiliac septic arthritis.
[2018-02-21] MEDS: Piperacillin/Tazobact 3.375 gm 100 ML IVPB SCH ×2 (11:30→18:53)
[2018-02-21 12:36] LABS: FERRITIN 73.2 ng/mL
--- NOTE | 2018-02-21 12:47 | CP.PCM.CON ---
History of Present Illness - History of Present Illness History of Present Illness: Orthopedic consultation: Dr. Day Patient is a 47 y/o with PMH of IV drug abuse, Hep C, and MRSA septicemia presents with c/o of severe L hip pain. The patient reports several months of progressive L hip pain without any history of trauma. He has been seen at other hospitals for this complaint and signed out AMA. The pain hinders most of his activities of daily living such as bending and ambulating. The pain is located at his groin and lateral hip without radiation. It is sharp in quality and occurs intermittently, especially with bending and WB. The pain alleviates with rest and pain medication. There is an associated soft mass at the groin. He denies redness/warmth/fevers/drainage to the hip. The patient suffers from chronic anemia due to his Hep C. He denies CP/SOB/N/V/D/fever/dysuria/melena currently. Review of Systems - Review of Systems All systems: reviewed and no additional remarkable complaints except Review of Systems: as per HPI Past Patient History - Infectious Disease Hx of Infectious Diseases: None - Past Medical History & Family History Past Family History: Reviewed and not pertinent - Past Social History Smoking Status: Heavy Smoker > 10 Cigarettes Daily Alcohol: Occasional Drugs: Cocaine, Other (IV) - CARDIAC Hx Cardiac Disorders: Yes Other/Comment: "infection in the heart". Endocarditis - PULMONARY Hx Respiratory Disorders: Yes Hx Asthma: Yes - NEUROLOGICAL Hx Neurological Disorder: No - HEENT Hx HEENT Problems: No - RENAL Hx Chronic Kidney Disease: No - ENDOCRINE/METABOLIC Hx Endocrine Disorders: Yes Hx Hypothyroidism: Yes - HEMATOLOGICAL/ONCOLOGICAL Hx Hepatitis C: Yes - INTEGUMENTARY Hx Dermatological Problems: No - MUSCULOSKELETAL/RHEUMATOLOGICAL Hx Falls: Yes Hx Osteoarthritis: Yes Other/Comment: sciatica - GASTROINTESTINAL Hx Gastrointestinal Disorders: No - GENITOURINARY/GYNECOLOGICAL Hx Genitourinary Disorders: No - PSYCHIATRIC Hx Substance Use: Yes Other/Comment: drug abuse - SURGICAL HISTORY Hx Surgeries: No - ANESTHESIA Hx Anesthesia: No Meds Allergies/Adverse Reactions: Allergies Allergy/AdvReac Type Severity Reaction Status Date / Time No Known Allergies Allergy Unverified 11/17/17 03:09 - Medications Medications: Current Medications Acetaminophen (Tylenol 325mg Tab) 650 mg PO Q6 PRN PRN Reason: Pain, Mild (1-3) Vancomycin HCl (Vancomycin 1gm) 1 gm in 250 mls @ 167 mls/hr IVPB DAILY KIMBERLEE; Protocol Last Admin: 02/21/18 11:17 Dose: Not Given Piperacillin Sod/Tazobactam Sod (Zosyn 3.375 In Ns 100ml) 100 mls @ 25 mls/hr IVPB Q8H KIMBERLEE; Protocol Stop: 02/21/18 21:59 Last Admin: 02/21/18 11:30 Dose: 25 mls/hr Lorazepam (Ativan) 2 mg IVP Q4H PRN; Protocol PRN Reason: Symptoms of alcohol withdrawl Last Admin: 02/21/18 10:17 Dose: 2 mg Morphine Sulfate (Morphine) 4 mg IVP Q4 PRN PRN Reason: Pain, severe (8-10) Ondansetron HCl (Zofran Inj) 4 mg IVP Q6 PRN PRN Reason: Nausea/Vomiting Oxycodone/Acetaminophen (Percocet 5/325 Mg Tab) 1 tab PO Q4 PRN PRN Reason: Pain, moderate (4-7) Stop: 02/24/18 05:49 Physical Exam - Constitutional Appears: No Acute Distress Additional comments: Drowsy due to medication - Head Exam Head Exam: ATRAUMATIC, NORMOCEPHALIC - Eye Exam Eye Exam: EOMI, Normal appearance - ENT Exam ENT Exam: Mucous Membranes Moist - Respiratory Exam Respiratory Exam: NORMAL BREATHING PATTERN - Cardiovascular Exam Cardiovascular Exam: +S1, +S2 - GI/Abdominal Exam GI & Abdominal Exam: Soft. absent: Tenderness - Extremities Exam Additional comments: L hip: Tender fluctuant mass at groin, no erythema, no drainage, no lesions tenderness at lateral hip greater troch ROM restricted due to pain, limited to flexed hip position sensation intact SP/DP/TN motor intact EHL/FHL/TA/G pedal pulses intact calves soft NT b/l R hip: nontender, no erythema, no drainage, no lesions FROM without pain sensation intact SP/DP/TN motor intact EHL/FHL/TA/G pedal pulses intact - Neurological Exam Neurological exam: Alert, Oriented x3 - Skin Skin Exam: Normal Color, Warm Results - Vital Signs Recent Vital Signs: Last Vital Signs Temp 97.4 F L 02/21/18 06:00 Pulse 100 H 02/21/18 06:05 Resp 18 02/21/18 10:44 BP 121/78 02/21/18 06:05 Pulse Ox 100 02/21/18 06:05 - Labs Result Diagrams: 02/21/18 05:54 02/21/18 02:09 Labs: Laboratory Results - last 24 hr 02/21/18 02/21/18 02/21/18 02:09 02:09 02:09 WBC 12.8 H RBC 3.57 Hgb 8.0 L Hct 25.3 L MCV 70.9 L MCH 22.4 L MCHC 31.6 RDW 17.8 H Plt Count 541 H MPV 7.9 Gran % 74.0 H Lymph % (Auto) 18.4 L [place] % (Auto) 5.9 Eos % (Auto) 1.5 Baso % (Auto) 0.2 Gran # 9.44 H Lymph # (Auto) 2.4 [place] # (Auto) 0.8 H Eos # (Auto) 0.2 Baso # (Auto) 0.02 ESR Retic Count PT INR APTT Sodium 134 Potassium 3.9 Chloride 97 L Carbon Dioxide 29 Anion Gap 12 BUN 17 Creatinine 0.7 L Est GFR ( Amer) > 60 Est GFR (Non-Af Amer) > 60 Random Glucose 96 Calcium 9.8 Magnesium 1.9 Iron TIBC % Saturation Ferritin Total Bilirubin 0.3 AST 35 ALT 18 Alkaline Phosphatase 74 Total Protein 9.3 H Albumin 3.9 Globulin 5.4 Albumin/Globulin Ratio 0.7 L Lipase 21 L Urine Color Yellow Urine Appearance Clear Urine pH 6.0 Ur Specific [place] 1.025 Urine Protein 30 H Urine Glucose (UA) Negative Urine Ketones Negative Urine Blood Large H Urine Nitrate Negative Urine Bilirubin Negative Urine Urobilinogen 0.2 Ur Leukocyte Esterase Negative Urine RBC 20 - 25 Urine WBC 0 - 2 Ur Epithelial Cells 0 - 2 Urine Bacteria Occ Blood Type Antibody Screen Crossmatch BBK History Checked 02/21/18 02/21/18 02/21/18 05:54 05:54 05:54 WBC 9.8 D RBC 3.46 L Hgb 7.6 L Hct 24.5 L MCV 70.8 L MCH 22.0 L MCHC 31.0 RDW 17.7 H Plt Count 463 H MPV 7.6 Gran % 69.7 H Lymph % (Auto) 20.8 L [place] % (Auto) 7.2 H Eos % (Auto) 2.2 Baso % (Auto) 0.1 Gran # 6.84 H Lymph # (Auto) 2.0 [place] # (Auto) 0.7 H Eos # (Auto) 0.2 Baso # (Auto) 0.01 ESR 77 H Retic Count 1.25 PT INR APTT Sodium Potassium Chloride Carbon Dioxide Anion Gap BUN Creatinine Est GFR ( Amer) Est GFR (Non-Af Amer) Random Glucose Calcium Magnesium Iron 19 L TIBC 254 L % Saturation 7 L Ferritin 73.2 Total Bilirubin AST ALT Alkaline Phosphatase Total Protein Albumin Globulin Albumin/Globulin Ratio Lipase Urine Color Urine Appearance Urine pH Ur Specific [place] Urine Protein Urine Glucose (UA) Urine Ketones Urine Blood Urine Nitrate Urine Bilirubin Urine Urobilinogen Ur Leukocyte Esterase Urine RBC Urine WBC Ur Epithelial Cells Urine Bacteria Blood Type Antibody Screen Crossmatch BBK History Checked 02/21/18 02/21/18 08:00 11:30 WBC RBC Hgb Hct MCV MCH MCHC RDW Plt Count MPV Gran % Lymph % (Auto) [place] % (Auto) Eos % (Auto) Baso % (Auto) Gran # Lymph # (Auto) [place] # (Auto) Eos # (Auto) Baso # (Auto) ESR Retic Count PT 13.1 H INR 1.14 APTT 29.2 Sodium Potassium Chloride Carbon Dioxide Anion Gap BUN Creatinine Est GFR ( Amer) Est GFR (Non-Af Amer) Random Glucose Calcium Magnesium Iron TIBC % Saturation Ferritin Total Bilirubin AST ALT Alkaline Phosphatase Total Protein Albumin Globulin Albumin/Globulin Ratio Lipase Urine Color Urine Appearance Urine pH Ur Specific [place] Urine Protein Urine Glucose (UA) Urine Ketones Urine Blood Urine Nitrate Urine Bilirubin Urine Urobilinogen Ur Leukocyte Esterase Urine RBC Urine WBC Ur Epithelial Cells Urine Bacteria Blood Type A POSITIVE Antibody Screen Negative Crossmatch See Detail BBK History Checked No verified bt - Impressions Impression: Accession No. : [id number] Patient Name / ID : BERTA GARCIA / [id number] Exam Date : 02/21/2018 03:04:41 ( Approved ) Study Comment : Sex / Age : M / 47Y Creator : Silvano Mar MD Dictator : Silvano Mar MD Reach Truck Operator : Dependency Case Manager : Silvano Mar MD Approver2 : Report Date : 02/21/2018 10:48:23 My Comment : Date of service: 02/21/2018 PROCEDURE: CT Abdomen and Pelvis with and without intravenous contrast HISTORY: swelling/tenderness to left groin ? abscess COMPARISON: None. TECHNIQUE: Axial images of the abdomen were obtained in the pre contrast, portal venous and delayed phases of enhancement. Coronal and sagittal reformats were generated. Contrast dose: Radiation dose: Total exam DLP = 362.83 mGy-cm. This CT exam was performed using one or more of the following dose reduction techniques: Automated exposure control, adjustment of the mA and/or kV according to patient size, and/or use of iterative reconstruction technique. FINDINGS: LOWER THORAX: Unremarkable. LIVER: Unremarkable. No gross lesion or ductal dilatation. GALLBLADDER AND BILE DUCTS: Unremarkable. PANCREAS: Unremarkable. No gross lesion or ductal dilatation. SPLEEN: Unremarkable. ADRENALS: Unremarkable. No mass. KIDNEYS AND URETERS: Unremarkable. No hydronephrosis. No solid mass. VASCULATURE: Unremarkable. No aortic aneurysm. No aortic atherosclerotic calcification or mural plaque present. BOWEL: Unremarkable. No obstruction. No gross mural thickening. APPENDIX: Normal appendix. PERITONEUM: Unremarkable. No free fluid. No free air. LYMPH NODES: Unremarkable. No enlarged lymph nodes. BLADDER: Unremarkable. REPRODUCTIVE: Unremarkable. BONES: Extensive erosive lytic changes of the left femoral head and the corresponding ax packed of the left acetabulum with associated large joint effusion and periosteal new bone formation. Secondary joint effusion with multiloculated abscess measuring 13.7 x 11.2 x 9.1 centimeters in craniocaudad, AP and transverse dimensions. This arises from the left hip joint synovium extending into the surrounding left iliacus muscle and adjacent periarticular muscles/soft tissues. Associated heterogeneous lytic changes of the left iliac bone extending into the left sacroiliac joint and the corresponding aspect of the left sacral ala. Disseminated left iliac osteomyelitis/left sacroiliac septic arthritis. OTHER FINDINGS: None. IMPRESSION: Extensive erosive lytic changes of the left femoral head and the corresponding ax packed of the left acetabulum with associated large joint effusion and periosteal new bone formation. Secondary joint effusion with multiloculated abscess measuring 13.7 x 11.2 x 9.1 centimeters in craniocaudad, AP and long sverse dimensions. This arises from the left hip joint synovium extending into the surrounding left iliacus muscle and adjacent periarticular muscles/soft tissues. Associated heterogeneous lytic changes of the left iliac bone extending into the left sacroiliac joint and the corresponding aspect of the left sacral ala. Disseminated left iliac osteomyelitis/left sacroiliac septic arthritis. Assessment & Plan (1) Abscess of left hip Assessment and Plan: -Dr. Day recommends surgical management with incision and drainage in OR tomorrow AM. OR cultures to be collected -IR was consulted, Dr. Polanco. Notes that it is difficult to penetrate all multiloculations, surgery recommended to evacuated entire infection. -Abx as per ID -PT/OT NWB LLE -NPO pMN -recommend 2 units PRBC's for anemia -warm compress for comfort -above d/w Dr. Day in agreement Status: Acute
[2018-02-21 13:07] LABS: FOLATE 18.5 ng/mL
--- NOTE | 2018-02-21 13:33 | CARD ---
APPROVED REPORT Date of service: 02/21/2018 EKG Measurement Heart [id number] <Conclusion> Normal sinus rhythm Normal ECG
--- NOTE | 2018-02-21 15:48 | CP.PCM.PN ---
<April Hubbard - Last Filed: 02/21/18 15:44> Subjective - Date & Time of Evaluation Date of Evaluation: 02/21/18 Time of Evaluation: 12:00 - Subjective Subjective: INTERNAL MEDICATION PROGRESS NOTE FOR DR. AMPARO Hubbard PGY1 Pt seen and examined at bedside this am. Pt reports increased pain in L groin area, and would like to eat. He appears in significant discomfort. He is laying on his R side, saying it is difficult to turn due to pain. He denies fevers or chills, n/v/c/d dysuria. Objective - Vital Signs/Intake and Output Vital Signs (last 24 hours): Temp Pulse Resp BP Pulse Ox 98.2 F 61 18 169/83 H 100 02/21/18 14:00 02/21/18 14:00 02/21/18 14:00 02/21/18 14:00 02/21/18 14:00 - Medications Medications: Current Medications Acetaminophen (Tylenol 325mg Tab) 650 mg PO Q6 PRN PRN Reason: Pain, Mild (1-3) Vancomycin HCl (Vancomycin 1gm) 1 gm in 250 mls @ 167 mls/hr IVPB DAILY [facility]; Protocol Last Admin: 02/21/18 11:17 Dose: Not Given Piperacillin Sod/Tazobactam Sod (Zosyn 3.375 In Ns 100ml) 100 mls @ 25 mls/hr IVPB Q8H [facility]E; Protocol Stop: 02/21/18 21:59 Last Admin: 02/21/18 11:30 Dose: 25 mls/hr Lorazepam (Ativan) 2 mg IVP Q4H PRN; Protocol PRN Reason: Symptoms of alcohol withdrawl Last Admin: 02/21/18 10:17 Dose: 2 mg Morphine Sulfate (Morphine) 4 mg IVP Q4 PRN PRN Reason: Pain, severe (8-10) Ondansetron HCl (Zofran Inj) 4 mg IVP Q6 PRN PRN Reason: Nausea/Vomiting Oxycodone/Acetaminophen (Percocet 5/325 Mg Tab) 1 tab PO Q4 PRN PRN Reason: Pain, moderate (4-7) Stop: 02/24/18 05:49 - Labs Labs: 02/21/18 05:54 02/21/18 02:09 PT 13.1 SECONDS (9.4-12.5) H 02/21/18 08:00 INR 1.14 02/21/18 08:00 APTT 29.2 Seconds (25.1-36.5) 02/21/18 08:00 - Constitutional Appears: Well, Non-toxic, In Acute Distress - Head Exam Head Exam: NORMAL INSPECTION, NORMOCEPHALIC - Eye Exam Eye Exam: EOMI, Normal appearance - ENT Exam ENT Exam: Mucous Membranes Moist, Normal Exam - Respiratory Exam Respiratory Exam: Clear to Ausculation Bilateral, NORMAL BREATHING PATTERN - Cardiovascular Exam Cardiovascular Exam: REGULAR RHYTHM, +S1, +S2 - GI/Abdominal Exam GI & Abdominal Exam: Tenderness Additional comments: [id number] hard abscess noted in L groin region. Very tender to palpation - Extremities Exam Extremities Exam: Normal Inspection. absent: Calf Tenderness Additional comments: L hip: Tender fluctuant mass at groin, no erythema, no drainage, no lesions tenderness at lateral hip greater troch ROM restricted due to pain, limited to flexed hip position sensation intact SP/DP/TN motor intact EHL/FHL/TA/G pedal pulses intact calves soft NT b/l R hip: nontender, no erythema, no drainage, no lesions FROM without pain sensation intact SP/DP/TN motor intact EHL/FHL/TA/G pedal pulses intact - Back Exam Back Exam: NORMAL INSPECTION - Neurological Exam Neurological Exam: Alert, Awake, Oriented x3 - Psychiatric Exam Psychiatric exam: Normal Affect, Normal Mood - Skin Skin Exam: Dry, Intact, Warm Assessment and Plan - Assessment and Plan (Free Text) Assessment: 47yo M w PMH of poly-substance abuse, sciatica, Hep C who presents to the ED with L hip pain, admitted for further evaluation and treatment of L hip/ L groin abscess Plan: L hip/L groin abscess CT abd/pel: multiloculated abscess from L hip synovium to L iliac muscle, 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 Pt to go to OR tomorrow for I&D. OR cultures to be collected. IR said region is difficult to penetrate d/t multiple loculations. pt afebrile, leukocytosis decreasing CRP f/u BCx, UCx f/u ESR vanco 1g IVPB daily zosyn 3.375g IV q8h tylenol 650mg PO q6h PRN mild pain, percocet 1tab PO q4h PRN mod pain, morphine 4mg IV q4h PRN severe pain warm compresses q2h, as per Gen Sx ID consulted, Dr. Ishan Walker f/u recs PT/OT NPO Microcytic Anemia Transfuse 2u pRBC before surgery. Consent obtained Obtain FOBT repeat U/a H/H 7.6/24.5 f/u smear TIBC, Fe, %sat ferritin B12, folate retic count Polysubstance Abuse f/u UDS CIWA protocol seizure precautions fall precautions ativan 2mg IV q4h PRN zofran 4mg IV q6h PRN counseled on cessation PPx DVT: heparin 5000u sc q8h NPO past midnight for OR tomorrow Case seen, examined and discussed with attending physician, Dr. Mata <Rachel Mata - Last Filed: 02/22/18 16:21> Objective - Vital Signs/Intake and Output Vital Signs (last 24 hours): Temp Pulse Resp BP Pulse Ox 99.2 F 66 18 130/72 100 02/22/18 14:45 02/22/18 14:45 02/22/18 14:45 02/22/18 14:45 02/22/18 14:45 Intake and Output: 02/22/18 02/22/18 06:59 18:59 Intake Total 580 Output Total 540 Balance 40 - Medications Medications: Current Medications Acetaminophen (Tylenol 325mg Tab) 650 mg PO Q6 PRN PRN Reason: Pain, Mild (1-3) Last Admin: 02/21/18 20:43 Dose: 650 mg Sodium Chloride (Sodium Chloride 0.9%) 1,000 mls @ 100 mls/hr IV .Q10H [facility] Last Admin: 02/22/18 11:12 Dose: 100 mls/hr Ibuprofen (Motrin Tab) 600 mg PO Q6 PRN PRN Reason: Fever >100.4 F Last Admin: 02/22/18 01:30 Dose: 600 mg Lorazepam (Ativan) 2 mg IVP Q4H PRN; Protocol PRN Reason: Symptoms of alcohol withdrawl Last Admin: 02/21/18 10:17 Dose: 2 mg Morphine Sulfate (Morphine) 2 mg IVP Q4 PRN PRN Reason: Pain, severe (8-10) Ondansetron HCl (Zofran Inj) 4 mg IVP Q6 PRN PRN Reason: Nausea/Vomiting Last Admin: 02/21/18 22:49 Dose: 4 mg Oxycodone/Acetaminophen (Percocet 5/325 Mg Tab) 1 tab PO Q4 PRN PRN Reason: Pain, moderate (4-7) Stop: 02/24/18 05:49 - Labs Labs: 02/22/18 06:15 02/22/18 06:15 PT 14.0 SECONDS (9.4-12.5) H 02/22/18 06:15 INR 1.21 02/22/18 06:15 APTT 28.1 Seconds (25.1-36.5) 02/22/18 06:15 Attending/Attestation - Attestation I have personally seen and examined this patient.: Yes I have fully participated in the care of the patient.: Yes I have reviewed all pertinent clinical information, including history, physical exam and plan: Yes Notes (Text): 02/22/18 16:16 Attending note; Patient seen and examined with resident. Patient is complaining of left hip pain. In mild distress. Alert and awake. Denies any fevers, chills. Patient has been using IV drugs for long period of time. Patient is a 47-year-old male with PMH of poly-substance abuse, IVDA, Hepatitis c, sciatica, history of MRSA bacteremia is admitted with Left hip pain. 1. Left hip septic arthritis / possible osteomyelitis of sacroiliac joint. Abdomen and pelvis CT showed multiloculated abscess from L hip synovium to L iliac muscle, suggestive of disseminated L iliac osteomyelitis/L sacroiliac septic arthritis. Case discussed with orthopedics in detail. MRI of the left hip ordered. Case discussed with IR in detail. Patient will need possible surgery and drainage. Started on IV vancomycin and Zosyn. ID evaluation requested. 2. Anemia; chronic. No active bleed. 2 units PRBC transfusion ordered for today. 3. History of chronic hep C. untreated. 4. Continues IV drug abuse. Complete drug abuse cessation is strongly recommended. Urine drug screen ordered. 5. History of alcohol abuse; monitor with [facility] protocol. IV Ativan when necessary ordered. The diagnosis, treatment option explained to the patient in detail. Patient will be referred to [facility] [place] clinic upon discharge. 02/22/18 16:21
--- NOTE | 2018-02-21 19:59 | CP.PCM.CON ---
History of Present Illness - History of Present Illness History of Present Illness: Infectious Disease Consultation: February 21, 2018 47 yo male with PMHx of Hepatitis C, MRSA bacteremia history. The patient complains of pain in the back, buttocks, and left groin. He told the ER that it started 3 days ago. He states now that it has been over a week now. The patient has had chronic back pain and sciatic pain from at least 4 months. He is uncooperative with the interview and exam. Known history of Heroin use. CT scan showed large groin abscess invading into the left hip joint measuring [id number] invading into the left hip. questionable osteomyelitis sacral and sacroiliac joint. PMHx: Hepatitis C, MRSA bacteremia PSHx: Right Carpal tunnel release Allergies: NKDA Social Hx: 13 pack year tobacco history Sniffs cocaine IV Heroin use last use stated a few months ago. Inhaled heroin 10 bags/day EtOH use. Active Medications Acetaminophen (Tylenol 325mg Tab) 650 mg PO Q6 PRN PRN Reason: Pain, Mild (1-3) Piperacillin Sod/Tazobactam Sod (Zosyn 3.375 In Ns 100ml) 100 mls @ 25 mls/hr IVPB Q8H [facility]; Protocol Stop: 02/23/18 21:59 Last Admin: 02/21/18 18:53 Dose: 25 mls/hr Vancomycin HCl (Vancomycin 1gm) 1 gm in 250 mls @ 167 mls/hr IVPB Q12H [facility]; Protocol Last Admin: 02/21/18 18:55 Dose: 167 mls/hr Lorazepam (Ativan) 2 mg IVP Q4H PRN; Protocol PRN Reason: Symptoms of alcohol withdrawl Last Admin: 02/21/18 10:17 Dose: 2 mg Morphine Sulfate (Morphine) 4 mg IVP Q4 PRN PRN Reason: Pain, severe (8-10) Ondansetron HCl (Zofran Inj) 4 mg IVP Q6 PRN PRN Reason: Nausea/Vomiting Oxycodone/Acetaminophen (Percocet 5/325 Mg Tab) 1 tab PO Q4 PRN PRN Reason: Pain, moderate (4-7) Stop: 02/24/18 05:49 Family Hx: none given ROS: No fevers, chills, nausea, vomiting, diarrhea, headaches, dizziness, chest pain, abdominal pain, melena, hematuria, hematemesis, hematochezia, depression, anxiety Past Patient History - Infectious Disease Hx of Infectious Diseases: None - Past Medical History & Family History Past Family History: Reviewed and not pertinent - Past Social History Smoking Status: Heavy Smoker > 10 Cigarettes Daily Alcohol: Occasional Drugs: Cocaine, Other (IV) - CARDIAC Hx Cardiac Disorders: Yes Other/Comment: "infection in the heart". Endocarditis - PULMONARY Hx Respiratory Disorders: Yes Hx Asthma: Yes - NEUROLOGICAL Hx Neurological Disorder: No - HEENT Hx HEENT Problems: No - RENAL Hx Chronic Kidney Disease: No - ENDOCRINE/METABOLIC Hx Endocrine Disorders: Yes Hx Hypothyroidism: Yes - HEMATOLOGICAL/ONCOLOGICAL Hx Hepatitis C: Yes - INTEGUMENTARY Hx Dermatological Problems: No - MUSCULOSKELETAL/RHEUMATOLOGICAL Hx Falls: Yes Hx Osteoarthritis: Yes Other/Comment: sciatica - GASTROINTESTINAL Hx Gastrointestinal Disorders: No - GENITOURINARY/GYNECOLOGICAL Hx Genitourinary Disorders: No - PSYCHIATRIC Hx Substance Use: Yes Other/Comment: drug abuse - SURGICAL HISTORY Hx Surgeries: No - ANESTHESIA Hx Anesthesia: No Meds Allergies/Adverse Reactions: Allergies Allergy/AdvReac Type Severity Reaction Status Date / Time No Known Allergies Allergy Unverified 11/17/17 03:09 - Medications Medications: Current Medications Acetaminophen (Tylenol 325mg Tab) 650 mg PO Q6 PRN PRN Reason: Pain, Mild (1-3) Piperacillin Sod/Tazobactam Sod (Zosyn 3.375 In Ns 100ml) 100 mls @ 25 mls/hr IVPB Q8H K[facility]BER[facility]E; Protocol Stop: 02/23/18 21:59 Last Admin: 02/21/18 18:53 Dose: 25 mls/hr Vancomycin HCl (Vancomycin 1gm) 1 gm in 250 mls @ 167 mls/hr IVPB Q12H KIMBERLEE; Pro tocol Last Admin: 02/21/18 18:55 Dose: 167 mls/hr Lorazepam (Ativan) 2 mg IVP Q4H PRN; Protocol PRN Reason: Symptoms of alcohol withdrawl Last Admin: 02/21/18 10:17 Dose: 2 mg Morphine Sulfate (Morphine) 4 mg IVP Q4 PRN PRN Reason: Pain, severe (8-10) Ondansetron HCl (Zofran Inj) 4 mg IVP Q6 PRN PRN Reason: Nausea/Vomiting Oxycodone/Acetaminophen (Percocet 5/325 Mg Tab) 1 tab PO Q4 PRN PRN Reason: Pain, moderate (4-7) Stop: 02/24/18 05:49 Physical Exam - Constitutional Appears: Non-toxic, No Acute Distress Additional comments: lethargic - Head Exam Head Exam: ATRAUMATIC, NORMOCEPHALIC - Eye Exam Eye Exam: EOMI, PERRL Pupil Exam: NORMAL ACCOMODATION, PERRL - ENT Exam ENT Exam: Mucous Membranes Moist, Normal External Ear Exam, TM's Normal Nik aterally - Neck Exam Neck exam: Positive for: Full Rom, Normal Inspection - Respiratory Exam Respiratory Exam: Clear to Auscultation Bilateral, NORMAL BREATHING PATTERN. absent: Rales, Rhonchi, Wheezes - Cardiovascular Exam Cardiovascular Exam: REGULAR RHYTHM, RRR, +S1, +S2 - GI/Abdominal Exam GI & Abdominal Exam: Normal Bowel Sounds, Soft. absent: Distended, Tenderness - Rectal Exam Rectal Exam: NORMAL INSPECTION - Extremities Exam Extremities exam: Positive for: full ROM Additional comments: left lower leg swelling. Decrease ROM of the right hip. - Neurological Exam Neurological exam: Alert, CN II-XII Intact, Oriented x3 - Psychiatric Exam Psychiatric exam: Normal Affect, Normal Mood - Skin Skin Exam: Intact, Normal Color Results - Vital Signs Recent Vital Signs: Last Vital Signs Temp 98.2 F 02/21/18 14:00 Pulse 61 02/21/18 14:00 Resp 18 02/21/18 14:00 BP 169/83 H 02/21/18 14:00 Pulse Ox 100 02/21/18 14:00 - Labs Result Diagrams: 02/21/18 05:54 02/21/18 02:09 Labs: Laboratory Results - last 24 hr 02/21/18 02/21/18 02/21/18 02:09 02:09 02:09 WBC 12.8 H RBC 3.57 Hgb 8.0 L Hct 25.3 L MCV 70.9 L MCH 22.4 L MCHC 31.6 RDW 17.8 H Plt Count 541 H MPV 7.9 Gran % 74.0 H Lymph % (Auto) 18.4 L [place] % (Auto) 5.9 Eos % (Auto) 1.5 Baso % (Auto) 0.2 Gran # 9.44 H Lymph # (Auto) 2.4 [place] # (Auto) 0.8 H Eos # (Auto) 0.2 Baso # (Auto) 0.02 ESR Retic Count PT INR APTT Sodium 134 Potassium 3.9 Chloride 97 L Carbon Dioxide 29 Anion Gap 12 BUN 17 Creatinine 0.7 L Est GFR ( Amer) > 60 Est GFR (Non-Af Amer) > 60 Random Glucose 96 Calcium 9.8 Magnesium 1.9 Iron TIBC % Saturation Ferritin Total Bilirubin 0.3 AST 35 ALT 18 Alkaline Phosphatase 74 Total Protein 9.3 H Albumin 3.9 Globulin 5.4 Albumin/Globulin Ratio 0.7 L Lipase 21 L Vitamin B12 Folate Urine Color Yellow Urine Appearance Clear Urine pH 6.0 Ur Specific [place] 1.025 Urine Protein 30 H Urine Glucose (UA) Negative Urine Ketones Negative Urine Blood Large H Urine Nitrate Negative Urine Bilirubin Negative Urine Urobilinogen 0.2 Ur Leukocyte Esterase Negative Urine RBC 20 - 25 Urine WBC 0 - 2 Ur Epithelial Cells 0 - 2 Urine Bacteria Occ Blood Type Blood Type Confirm Antibody Screen Crossmatch BBK History Checked 02/21/18 02/21/18 02/21/18 05:54 05:54 05:54 WBC 9.8 D RBC 3.46 L Hgb 7.6 L Hct 24.5 L MCV 70.8 L MCH 22.0 L MCHC 31.0 RDW 17.7 H Plt Count 463 H MPV 7.6 Gran % 69.7 H Lymph % (Auto) 20.8 L [place] % (Auto) 7.2 H Eos % (Auto) 2.2 Baso % (Auto) 0.1 Gran # 6.84 H Lymph # (Auto) 2.0 [place] # (Auto) 0.7 H Eos # (Auto) 0.2 Baso # (Auto) 0.01 ESR 77 H Retic Count 1.25 PT INR APTT Sodium Potassium Chloride Carbon Dioxide Anion Gap BUN Creatinine Est GFR ( Amer) Est GFR (Non-Af Amer) Random Glucose Calcium Magnesium Iron 19 L TIBC 254 L % Saturation 7 L Ferritin 73.2 Total Bilirubin AST ALT Alkaline Phosphatase Total Protein Albumin Globulin Albumin/Globulin Ratio Lipase Vitamin B12 363 Folate 18.5 Urine Color Urine Appearance Urine pH Ur Specific [place] Urine Protein Urine Glucose (UA) Urine Ketones Urine Blood Urine Nitrate Urine Bilirubin Urine Urobilinogen Ur Leukocyte Esterase Urine RBC Urine WBC Ur Epithelial Cells Urine Bacteria Blood Type Blood Type Confirm Antibody Screen Crossmatch BBK History Checked 02/21/18 02/21/18 02/21/18 08:00 11:30 11:45 WBC RBC Hgb Hct MCV MCH MCHC RDW Plt Count MPV Gran % Lymph % (Auto) [place] % (Auto) Eos % (Auto) Baso % (Auto) Gran # Lymph # (Auto) [place] # (Auto) Eos # (Auto) Baso # (Auto) ESR Retic Count PT 13.1 H INR 1.14 APTT 29.2 Sodium Potassium Chloride Carbon Dioxide Anion Gap BUN Creatinine Est GFR ( Amer) Est GFR (Non-Af Amer) Random Glucose Calcium Magnesium Iron TIBC % Saturation Ferritin Total Bilirubin AST ALT Alkaline Phosphatase Total Protein Albumin Globulin Albumin/Globulin Ratio Lipase Vitamin B12 Folate Urine Color Urine Appearance Urine pH Ur Specific [place] Urine Protein Urine Glucose (UA) Urine Ketones Urine Blood Urine Nitrate Urine Bilirubin Urine Urobilinogen Ur Leukocyte Esterase Urine RBC Urine WBC Ur Epithelial Cells Urine Bacteria Blood Type A POSITIVE Blood Type Confirm A POSITIVE Antibody Screen Negative Crossmatch See Detail BBK History Checked No verified bt Assessment & Plan - Assessment and Plan (Free Text) Assessment: 47 yo male with worsening left groin pain and swelling. The patient was found on CT of the abdomen and pelvis to have: "Extensive erosive lytic changes of the left femoral head and the corresponding ax packed of the left acetabulum with associated large joint effusion and periosteal new bone formation. Secondary joint effusion with multiloculated abscess measuring 13.7 x 11.2 x 9.1 centimeters in craniocaudad, AP and trans verse dimensions. This arises from the left hip joint synovium extending into the surrounding left iliacus muscle and adjacent periarticular muscles/soft tissues. Associated heterogeneous lytic changes of the left iliac bone extending into the left sacroiliac joint and the corresponding aspect of the left sacral ala. 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 Noted started on Zosyn and Vancomycin IV. Given that the patient is having surgeric intervention, stop IV antibiotics until after the procedure and cultures have been taken. Then would restart Zosyn and IV Vancomycin antibiotic regimen. Supportive care. Thank you for allowing me to participate in the care of the patient, we will follow with you.
[2018-02-21 21:08] LABS: URINE BILIRUBIN NEGATIVE (NEGATIVE); URINE BLOOD NEGATIVE (NEGATIVE); URINE GLUCOSE (UA) NEGATIVE (NEGATIVE); URINE LEUKOCYTE ESTERASE NEGATIVE Leu/uL (NEGATIVE); URINE PROTEIN NEGATIVE mg/dL (<30 mg/dL); URINE UROBILINOGEN 0.2 E.U./dL (<1 E.U./dL)
[2018-02-21 21:09] LABS: URINE APPEARANCE CLEAR (CLEAR); URINE COLOR YELLOW (YELLOW)
[2018-02-21 21:21] LABS: BARBITURATES, UR NEGATIVE (NEGATIVE)
[2018-02-21 21:22] LABS: BENZODIAZEPINES, UR NEGATIVE (NEGATIVE); OPIATES, UR POSITIVE (NEGATIVE); PHENCYCLIDINE, UR NEGATIVE (NEGATIVE)
[2018-02-22 06:53] LABS: INR 1.21; PARTIAL THROMBOPLASTIN TIME 28.1 Seconds (25.1-36.5)
[2018-02-22 06:57] LABS: BLOOD UREA NITROGEN 11 mg/dL (7-21); GFR NON-AFRICAN AMERICAN > 60
[2018-02-22 06:58] LABS: ALB/GLOB RATIO 0.6 (1.1-1.8); ALBUMIN 2.9 g/dL (3.0-4.8); ALT/SGPT 19 U/L (7-56); AST/SGOT 28 U/L (17-59); CALCIUM 8.7 mg/dL (8.4-10.5)
[2018-02-22 07:16] LABS: BASO # 0.02 K/mm3 (0.0-2.0); BASO % 0.2 % (0.0-3.0); EOS # 0.1 (0.0-0.7); GRAN # 8.79 (1.4-6.5); GRAN % 72.1 % (50.0-68.0); LYMPH # 2.3 (1.2-3.4); LYMPH % 18.7 % (22.0-35.0); MEAN CELL VOLUME 71.8 fl (80.0-105.0); MEAN CORPUSCULAR HEMOGLOBIN 22.8 pg (25.0-35.0); MEAN CORPUSCULAR HGB CONC 31.7 g/dl (31.0-37.0); MEAN PLATELET VOLUME 7.9 fl (7.0-11.0); WHITE BLOOD COUNT 12.2 10^3/uL (4.5-11.0)
[2018-02-22 07:29] LABS: HEMOGLOBIN 9.1 g/dL (14.0-18.0)
[2018-02-22] MEDS: Sodium Chloride 0.9% 1,000 ML IV SCH (11:12)
--- NOTE | 2018-02-22 12:08 | CP.PCM.PN ---
<April Hubbard - Last Filed: 02/22/18 12:58> Subjective - Date & Time of Evaluation Date of Evaluation: 02/22/18 Time of Evaluation: 12:03 - Subjective Subjective: INTERNAL MEDICINE PROGRESS NOTE FOR DR. AMPARO Hubbard PGY1 Pt seen and examined at bedside this am. Pt reported pain overnight and had a fever of 102.6 overnight. He was given acetaminophen overnight. No other nursing events overnight. This am, pt reports he has pain when he moves. He is laying down on the R side. He reports continued pain, but denies fevers, chills, nausea, vomiting, diarrhea, dysuria. Objective - Vital Signs/Intake and Output Vital Signs (last 24 hours): Temp Pulse Resp BP Pulse Ox 100.1 F H 70 18 128/89 99 02/22/18 04:25 02/22/18 04:25 02/22/18 04:25 02/22/18 04:25 02/21/18 21:40 Intake and Output: 02/22/18 02/22/18 06:59 18:59 Intake Total 580 Output Total 540 Balance 40 - Medications Medications: Current Medications Acetaminophen (Tylenol 325mg Tab) 650 mg PO Q6 PRN PRN Reason: Pain, Mild (1-3) Last Admin: 02/21/18 20:43 Dose: 650 mg Sodium Chloride (Sodium Chloride 0.9%) 1,000 mls @ 100 mls/hr IV .Q10H [facility] Last Admin: 02/22/18 11:12 Dose: 100 mls/hr Ibuprofen (Motrin Tab) 600 mg PO Q6 PRN PRN Reason: Fever >100.4 F Last Admin: 02/22/18 01:30 Dose: 600 mg Lorazepam (Ativan) 2 mg IVP Q4H PRN; Protocol PRN Reason: Symptoms of alcohol withdrawl Last Admin: 02/21/18 10:17 Dose: 2 mg Morphine Sulfate (Morphine) 2 mg IVP Q4 PRN PRN Reason: Pain, severe (8-10) Ondansetron HCl (Zofran Inj) 4 mg IVP Q6 PRN PRN Reason: Nausea/Vomiting Last Admin: 02/21/18 22:49 Dose: 4 mg Oxycodone/Acetaminophen (Percocet 5/325 Mg Tab) 1 tab PO Q4 PRN PRN Reason: Pain, moderate (4-7) Stop: 02/24/18 05:49 - Labs Labs: 02/22/18 06:15 02/22/18 06:15 PT 14.0 SECONDS (9.4-12.5) H 02/22/18 06:15 INR 1.21 02/22/18 06:15 APTT 28.1 Seconds (25.1-36.5) 02/22/18 06:15 - Constitutional Appears: Well, Non-toxic, No Acute Distress - Head Exam Head Exam: NORMAL INSPECTION, NORMOCEPHALIC - Eye Exam Eye Exam: EOMI, Normal appearance - Neck Exam Neck Exam: Normal Inspection - Respiratory Exam Respiratory Exam: Clear to Ausculation Bilateral, NORMAL BREATHING PATTERN - Cardiovascular Exam Cardiovascular Exam: REGULAR RHYTHM, +S1, +S2 - GI/Abdominal Exam GI & Abdominal Exam: Soft, Tenderness (LLQ), Normal Bowel Sounds Additional comments: [id number] hard abscess noted in L groin region. Very tender to palpation - Extremities Exam Extremities Exam: Normal Inspection. absent: Calf Tenderness Additional comments: L hip: Tender fluctuant mass at groin, no erythema, no drainage, no lesions tenderness at lateral hip greater troch ROM restricted due to pain, limited to flexed hip position sensation intact SP/DP/TN motor intact EHL/FHL/TA/G pedal pulses intact calves soft NT b/l R hip: nontender, no erythema, no drainage, no lesions FROM without pain sensation intact SP/DP/TN motor intact EHL/FHL/TA/G pedal pulses intact - Back Exam Back Exam: NORMAL INSPECTION - Neurological Exam Neurological Exam: Alert, Awake, Oriented x3 - Psychiatric Exam Psychiatric exam: Normal Affect, Normal Mood - Skin Skin Exam: Dry, Intact, Warm Additional comments: multiple track guerrero noted on b/l upper/lower extremities Assessment and Plan - Assessment and Plan (Free Text) Assessment: 47yo M w PMH of poly-substance abuse, sciatica, Hep C who presents to the ED with L hip pain, admitted for further evaluation and treatment of L hip/ L groin abscess Plan: L hip/L groin abscess Pt febrile overnight, leukocytosis increasing. Likely secondary to pelvic mass. 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 Cultures to be obtained in OR Per ID: restart vanc/zosyn after the surgery Hold anticoags, chest xray, coags, ekg done already pt afebrile, leukocytosis increase f/u BCx, UCx vanco 1g IVPB daily/ zosyn 3.375g IV q8h held before surgery tylenol 650mg PO q6h PRN mild pain, percocet 1tab PO q4h PRN mod pain, morphine 4mg IV q4h PRN severe pain warm compresses q2h, as per Gen Sx ID consulted, Dr. Olmstead - f/u recs PT/OT NPO past midnight for surgery Microcytic Anemia Transfused 2u pRBC before surgery. hemoglobin improved to 9.1 Obtain FOBT repeat U/a f/u smear TIBC, Fe, %sat ferritin B12, folate retic count Polysubstance Abuse UDS + for cocaine and opiates Pt admitted to heroin and cocaine use CIWA protocol. CIWA 0 overnight seizure precautions fall precautions ativan 2mg IV q4h PRN zofran 4mg IV q6h PRN counseled on cessation PPx DVT: held hep for surgery NPO. Resume diet based on surgery recs Case seen, examined and discussed with attending physician, Dr. Mata <Rachel Mata - Last Filed: 02/22/18 16:24> Objective - Vital Signs/Intake and Output Vital Signs (last 24 hours): Temp Pulse Resp BP Pulse Ox 99.2 F 66 18 130/72 100 02/22/18 14:45 02/22/18 14:45 02/22/18 14:45 02/22/18 14:45 02/22/18 14:45 Intake and Output: 02/22/18 02/22/18 06:59 18:59 Intake Total 580 Output Total 540 Balance 40 - Medications Medications: Current Medications Acetaminophen (Tylenol 325mg Tab) 650 mg PO Q6 PRN PRN Reason: Pain, Mild (1-3) Last Admin: 02/21/18 20:43 Dose: 650 mg Hydromorphone HCl (Dilaudid) 0.5 mg IVP Q15M PRN PRN Reason: Pain, moderate (4-7) Stop: 02/22/18 23:59 Sodium Chloride (Sodium Chloride 0.9%) 1,000 mls @ 100 mls/hr IV .Q10H [facility] Last Admin: 02/22/18 11:12 Dose: 100 mls/hr Lactated Ringer's (Lactated Ringer's) 1,000 mls @ 75 mls/hr IV .[id number] [facility] Stop: 02/22/18 23:31 Ibuprofen (Motrin Tab) 600 mg PO Q6 PRN PRN Reason: Fever >100.4 F Last Admin: 02/22/18 01:30 Dose: 600 mg Lorazepam (Ativan) 2 mg IVP Q4H PRN; Protocol PRN Reason: Symptoms of alcohol withdrawl Last Admin: 02/21/18 10:17 Dose: 2 mg Morphine Sulfate (Morphine) 2 mg IVP Q4 PRN PRN Reason: Pain, severe (8-10) Ondansetron HCl (Zofran Inj) 4 mg IVP Q6 PRN PRN Reason: Nausea/Vomiting Last Admin: 02/21/18 22:49 Dose: 4 mg Oxycodone/Acetaminophen (Percocet 5/325 Mg Tab) 1 tab PO Q4 PRN PRN Reason: Pain, moderate (4-7) Stop: 02/24/18 05:49 - Labs Labs: 02/22/18 06:15 02/22/18 06:15 PT 14.0 SECONDS (9.4-12.5) H 02/22/18 06:15 INR 1.21 02/22/18 06:15 APTT 28.1 Seconds (25.1-36.5) 02/22/18 06:15 Attending/Attestation - Attestation I have personally seen and examined this patient.: Yes I have fully participated in the care of the patient.: Yes I have reviewed all pertinent clinical information, including history, physical exam and plan: Yes Notes (Text): 02/22/18 16:22 Attending note; Patient seen and examined with resident. Patient is complaining of left hip pain. Patient had MAXIMUM TEMPERATURE of 102.6. Patient is a 47-year-old male with PMH of poly-substance abuse, IVDA, Hepatitis c, sciatica, history of MRSA bacteremia is admitted with Left hip pain. 1. Left hip septic arthritis / possible osteomyelitis of sacroiliac joint. Abdomen and pelvis CT showed multiloculated abscess from L hip synovium to L iliac muscle, suggestive of disseminated L iliac osteomyelitis/L sacroiliac septic arthritis. Case discussed with orthopedics in detail. Patient will go to the OR for surgery and drainage. ID evaluation appreciated. We will continue vancomycin and Zosyn after surgery. 2. Anemia; chronic. status post 2 units PRBC transfusion yesterday. Hemoglobin is 9.1. No active bleeding noted. 3. History of chronic hep C. untreated. 4. IV drug abuse. Complete drug abuse cessation is strongly recommended. Urine drug screen is positive for cocaine and opiates. Pain management with IV morphine when necessary. 5. History of alcohol abuse; monitor with CIWA protocol. IV Ativan when necessary ordered. The diagnosis, treatment option explained to the patient in detail. Patient will be [place] [facility] [place] discharge.
[2018-02-22 12:41] LABS: HEPATITIS B SURFACE AG Negative (NEGATIVE)
[2018-02-22 12:47] LABS: HEPATITIS A IGM NEGATIVE (NEGATIVE); HEPATITIS B CORE AB NEGATIVE (NEGATIVE)
[2018-02-22 14:06] LABS: HEPATITIS C ANTIBODY REACTIVE (NEGATIVE)
[2018-02-22] MEDS ORDERED: Collagen Hemostat Powder ONE (15:51)
[2018-02-22] MEDS ORDERED: Propofol 10 mg/ml Inj (20 ML) ONE (16:02)
[2018-02-22] MEDS ORDERED: Midazolam 2 MG/2 ML VIAL ONE (16:03)
[2018-02-22] MEDS ORDERED: Rocuronium 10 mg/ml (5 ml) ONE ×2 (16:07→17:22)
[2018-02-22] MEDS ORDERED: HYDROmorphone 0.5 mg/0.5 ml ISec IVP PRN (16:20)
[2018-02-22] MEDS ORDERED: Lactated Ringer's 1,000 ML IV SCH ×3 (16:30→19:00)
[2018-02-22] MEDS ORDERED: Neostigmine Methylsulfate 3mg/3ml Syringe IV ONE (16:49)
[2018-02-22] MEDS ORDERED: Glycopyrrolate 0.2 mg/ml (2ml vial) ONE (16:50)
[2018-02-22] MEDS ORDERED: Morphine 4 mg/ml ISec ONE ×3 (17:13→18:11)
[2018-02-22] MEDS ORDERED: Thrombin Topical 20,000 Intl Units Spray Kit TOP ONE (17:35)
--- NOTE | 2018-02-22 17:59 | CP.PCM.PN ---
Subjective - Date & Time of Evaluation Date of Evaluation: 02/22/18 Time of Evaluation: 17:47 - Subjective Subjective: Infectious Disease Follow Up: February 22, 2018 47 yo male with PMHx of Hepatitis C, MRSA bacteremia history. The patient complains of pain in the back, buttocks, and left groin. He told the ER that it started 3 days ago. He states now that it has been over a week now. The patient has had chronic back pain and sciatic pain from at least 4 months. He is uncooperative with the interview and exam. Known history of Heroin use. CT scan showed large groin abscess invading into the left hip joint measuring [id number] invading into the left hip. questionable osteomyelitis sacral and sacroiliac joint. Taken for I&D today by Orthopedics. Restart antibiotics. Objective - Vital Signs/Intake and Output Vital Signs (last 24 hours): Temp Pulse Resp BP Pulse Ox 99.2 F 66 18 130/72 100 02/22/18 14:45 02/22/18 14:45 02/22/18 14:45 02/22/18 14:45 02/22/18 14:45 Intake and Output: 02/22/18 02/22/18 06:59 18:59 Intake Total 580 0 Output Total 540 Balance 40 0 - Medications Medications: Current Medications Acetaminophen (Tylenol 325mg Tab) 650 mg PO Q6 PRN PRN Reason: Pain, Mild (1-3) Last Admin: 02/21/18 20:43 Dose: 650 mg Hydromorphone HCl (Dilaudid) 0.5 mg IVP Q15M PRN PRN Reason: Pain, moderate (4-7) Stop: 02/22/18 23:59 Sodium Chloride (Sodium Chloride 0.9%) 1,000 mls @ 100 mls/hr IV .Q10H [facility] Last Admin: 02/22/18 11:12 Dose: 100 mls/hr Lactated Ringer's (Lactated Ringer's) 1,000 mls @ 75 mls/hr IV .[id number] [facility] Stop: 02/22/18 23:31 Ibuprofen (Motrin Tab) 600 mg PO Q6 PRN PRN Reason: Fever >100.4 F Last Admin: 02/22/18 01:30 Dose: 600 mg Lorazepam (Ativan) 2 mg IVP Q4H PRN; Protocol PRN Reason: Symptoms of alcohol withdrawl Last Admin: 02/21/18 10:17 Dose: 2 mg Morphine Sulfate (Morphine) 2 mg IVP Q4 PRN PRN Reason: Pain, severe (8-10) Ondansetron HCl (Zofran Inj) 4 mg IVP Q6 PRN PRN Reason: Nausea/Vomiting Last Admin: 02/21/18 22:49 Dose: 4 mg Oxycodone/Acetaminophen (Percocet 5/325 Mg Tab) 1 tab PO Q4 PRN PRN Reason: Pain, moderate (4-7) Stop: 02/24/18 05:49 - Labs Labs: 02/22/18 06:15 02/22/18 06:15 PT 14.0 SECONDS (9.4-12.5) H 02/22/18 06:15 INR 1.21 02/22/18 06:15 APTT 28.1 Seconds (25.1-36.5) 02/22/18 06:15 - Constitutional Appears: Non-toxic, No Acute Distress - Head Exam Head Exam: ATRAUMATIC, NORMOCEPHALIC - Eye Exam Eye Exam: EOMI, PERRL Pupil Exam: NORMAL ACCOMODATION, PERRL - ENT Exam ENT Exam: Mucous Membranes Moist, Normal External Ear Exam, TM's Normal Bilaterally - Neck Exam Neck Exam: Full ROM, Normal Inspection - Respiratory Exam Respiratory Exam: Clear to Ausculation Bilateral, NORMAL BREATHING PATTERN. absent: Rales, Rhonchi, Wheezes - Cardiovascular Exam Cardiovascular Exam: REGULAR RHYTHM, RRR, +S1, +S2 - GI/Abdominal Exam GI & Abdominal Exam: Soft, Normal Bowel Sounds. absent: Distended, Tenderness - Rectal Exam Rectal Exam: NORMAL INSPECTION - Extremities Exam Extremities Exam: Full ROM Additional comments: left lower leg swelling. Decrease ROM of the right hip. Left hip I&D. - Neurological Exam Neurological Exam: Alert, Awake, CN II-XII Intact, Oriented x3 - Psychiatric Exam Psychiatric exam: Normal Affect, Normal Mood - Skin Skin Exam: Intact, Normal Color Assessment and Plan - Assessment and Plan (Free Text) Assessment: 47 yo male with worsening left groin pain and swelling. The patient was found on CT of the abdomen and pelvis to have: "Extensive erosive lytic changes of the left femoral head and the corresponding ax packed of the left acetabulum with associated large joint effusion and periosteal new bone formation. Secondary joint effusion with multiloculated abscess measuring 13.7 x 11.2 x 9.1 centimeters in craniocaudad, AP and transverse dimensions. This arises from the left hip joint synovium extending into the surrounding left iliacus muscle and adjacent periarticular muscles/soft tissues. Associated heterogeneous lytic changes of the left iliac bone extending into the left sacroiliac joint and the corresponding aspect of the left sacral ala. 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 Noted started on Zosyn and Vancomycin IV. Given that the patient is having surgeric intervention, stop IV antibiotics until after the procedure and cultures have been taken. Then would restart Zosyn and IV Vancomycin antibiotic regimen. Supportive care. Taken to OR for I&D of the left hip. Thank you for allowing me to participate in the care of the patient, we will follow with you.
[2018-02-22] MEDS ORDERED: HYDROmorphone 1 mg/ml ISec IVP PRN (18:39)
[2018-02-22] MEDS ORDERED: HYDROmorphone 0.5 mg/0.5 ml ISec ONE (20:08)
--- NOTE | 2018-02-22 21:47 | PCM.SURG1 ---
Surgeon's Initial Post Op Note - Surgeon's Notes Surgeon: Fco Day MD Rn Travel: Dexter Knight PA-C Type of Anesthesia: General Endo Anesthesia Administered By: Christina MATSON Pre-Operative Diagnosis: Left hip abscess Operative Findings: Left hip multi-loculated abscess, left hip septic joint Post-Operative Diagnosis: as above Operation Performed: Left hip irrigation and debridement Specimen/Specimens Removed: left hip abscess fluid x 2 Estimated Blood Loss: EBL {In ML}: 150 Blood Products Given: PRBC (1) Drains Used: Srinath Pina Date of Surgery/Procedure: 02/22/18 Time of Surgery/Procedure: 16:32
[2018-02-22] MEDS: Morphine 2 mg/ml ISec IVP PRN (22:48)
[2018-02-23] MEDS ORDERED: Morphine 2 mg/ml ISec IVP STA (01:30)
[2018-02-23 06:55] LABS: ALB/GLOB RATIO 0.6 (1.1-1.8); ALBUMIN 2.6 g/dL (3.0-4.8); ALT/SGPT 23 U/L (7-56); AST/SGOT 27 U/L (17-59); BLOOD UREA NITROGEN 12 mg/dL (7-21); CALCIUM 8.3 mg/dL (8.4-10.5); GFR NON-AFRICAN AMERICAN > 60
[2018-02-23 07:08] LABS: EOS # 0.1 (0.0-0.7); EOS % 0.7 % (1.5-5.0); GRAN # 10.38 (1.4-6.5); GRAN % 78.8 % (50.0-68.0); HEMOGLOBIN 8.9 g/dL (14.0-18.0); LYMPH # 1.9 (1.2-3.4); LYMPH % 14.7 % (22.0-35.0); MEAN CELL VOLUME 73.8 fl (80.0-105.0); MEAN CORPUSCULAR HEMOGLOBIN 23.5 pg (25.0-35.0); MEAN CORPUSCULAR HGB CONC 31.9 g/dl (31.0-37.0); MEAN PLATELET VOLUME 8.3 fl (7.0-11.0); MONO # 0.8 (0.1-0.6); MONO % 5.8 % (1.0-6.0); RBC 3.78 10^6/uL (3.5-6.1); RED CELL DISTRIBUTION WIDTH 18.2 % (11.5-14.5); WHITE BLOOD COUNT 13.2 10^3/uL (4.5-11.0)
--- NOTE | 2018-02-23 07:20 | OP ---
PROCEDURE DATE: 02/22/2018 SURGEON: Fco Day MD AIRLINE MECHANIC: TIKI Renteria PREOPERATIVE DIAGNOSIS: Left septic hip. POSTOPERATIVE DIAGNOSIS: 1. Left septic hip. 2. Left hip osteomyelitis. PROCEDURE: Left septic hip open debridement and washout. ANESTHESIA: General. ESTIMATED BLOOD LOSS: 200 mL. SPECIMENS: Hip joint cultures. DISPOSITION: Stable to recovery room. INDICATION: A 47-year-old male with chronic history of left septic hip and osteomyelitis with history of IV drug abuse. The patient presented to the [facility], underwent initial CT scan which confirmed multiple pockets of abscess over his left groin and hip area. The patient was taken to the operating room for the above procedure. DESCRIPTION OF PROCEDURE: The patient was placed on the operating room table. After general anesthesia was given, the left lower extremity was prepped and draped in standard surgical fashion and anterior hip incision was outlined. A longitudinal incision over the tensor fascia feliz, starting at the ASIS level. Timeout was performed. Incision was made through the skin only. All superficial veins were cauterized. Dissection was carried down to identifying the plane between the tensor fascia feliz and the sartorius muscle. The fascia between the plane was incised. The lateral femoral cutaneous nerve was identified and protected throughout the procedure. The dissection was carried down to the deeper layers where the ascending branch of the lateral femoral cutaneous artery was identified, ligated with multiple hemoclips. The rectus femoris muscle was identified and taken down from the anterior hip capsule. Deep to that, there was copious amount of pus was evacuated and sent for pathology and cultures. Another pocket over the iliopsoas muscle was identified, irrigated, and washed out. A total of 3 L of normal saline with bacitracin was used for pulsed lavage. Also the hip capsule was identified and excised opening anterior hip capsule. The hip joint was then copiously irrigated also and debrided. Old nonviable tissue was removed. After thorough debridement, the wound was closed using 0 Vicryl to repair the fascia over the tensor fascia. Prior to that, Hemovac SHERLY drain was placed into the hip area at the level of the iliopsoas muscle. We also tried to get pocket over the abductor muscle area, however, this incorporated the femoral artery. There was a high risk for arterial bleed. Small branches of the artery were ligated. Bleeding was controlled. However, pursuing further dissection medially, risk of high degree of femoral artery laceration and profuse bleeding at that point. Normal medial dissection was carried out. The patient would be recommended for interventional radiology, aspiration of the medial pocket of the groin. After closure of the tensor fascia, the subcutaneous layer was closed followed by skin with Monocryl suture. The SHERLY drain was sutured through the skin. Sterile dressing was applied. The patient tolerated the procedure well, and returned to recovery room in excellent condition. Fco Day MD
[2018-02-23] MEDS: Piperacillin/Tazobact 3.375 gm 100 ML IVPB SCH ×2 (10:20→16:24)
[2018-02-23] MEDS: Enoxaparin 40 mg Syringe SC SCH (10:57)
[2018-02-23] MEDS: Vancomycin 1gm in NS 250ml 1 GM/250 ML BAG IVPB SCH ×2 (11:03→22:00)
--- NOTE | 2018-02-23 12:34 | CP.PCM.PN ---
Subjective - Date & Time of Evaluation Date of Evaluation: 02/23/18 Time of Evaluation: 12:34 - Subjective Subjective: Patient seen and examined at bedside comfortable. Pain was severe this AM but controlled now. No acute events overnight. No other complaints. Objective - Vital Signs/Intake and Output Vital Signs (last 24 hours): Temp Pulse Resp BP Pulse Ox 99 F 72 18 131/78 99 02/23/18 06:00 02/23/18 06:00 02/23/18 06:00 02/23/18 06:00 02/23/18 06:00 Intake and Output: 02/23/18 02/23/18 06:59 18:59 Intake Total 0 Output Total 150 Balance -150 - Medications Medications: Current Medications Acetaminophen (Tylenol 325mg Tab) 650 mg PO Q6 PRN PRN Reason: Pain, Mild (1-3) Last Admin: 02/23/18 03:21 Dose: 650 mg Al Hydrox/Mg Hydrox/Simethicone (Maalox Plus 30 Ml) 30 ml PO DAILY PRN PRN Reason: Indigestion / Heartburn Docusate Sodium (Colace) 100 mg PO TID [facility] Last Admin: 02/23/18 10:58 Dose: 100 mg Enoxaparin Sodium (Lovenox) 40 mg SC DAILY [facility]; Protocol Last Admin: 02/23/18 10:57 Dose: 40 mg Ferrous Sulfate (Feosol) 324 mg PO TID [facility] Last Admin: 02/23/18 10:57 Dose: 324 mg Folic Acid (Folic Acid) 1 mg PO DAILY [facility] Last Admin: 02/23/18 10:57 Dose: 1 mg Sodium Chloride (Sodium Chloride 0.9%) 1,000 mls @ 100 mls/hr IV .Q10H [facility] Last Admin: 02/22/18 11:12 Dose: 100 mls/hr Lactated Ringer's (Lactated Ringer's) 1,000 mls @ 100 mls/hr IV .Q10H [facility] Last Admin: 02/22/18 22:19 Dose: 100 mls/hr Vancomycin HCl (Vancomycin 1gm) 1 gm in 250 mls @ 167 mls/hr IVPB Q12H [facility]; Protocol Last Admin: 02/23/18 11:03 Dose: 167 mls/hr Piperacillin Sod/Tazobactam Sod (Zosyn 3.375 In Ns 100ml) 100 mls @ 25 mls/hr IVPB Q8 [facility]E; Protocol Stop: 02/23/18 17:59 Last Admin: 02/23/18 11:02 Dose: 25 mls/hr Ibuprofen (Motrin Tab) 600 mg PO Q6 PRN PRN Reason: Fever >100.4 F Last Admin: 02/22/18 01:30 Dose: 600 mg Lorazepam (Ativan) 2 mg IVP Q4H PRN; Protocol PRN Reason: Symptoms of alcohol withdrawl Last Admin: 02/21/18 10:17 Dose: 2 mg Methadone HCl (Methadone) 10 mg PO Q6 PRN PRN Reason: Pain, severe (8-10) Morphine Sulfate (Morphine) 2 mg IVP Q4 PRN PRN Reason: Pain, severe (8-10) Last Admin: 02/22/18 22:48 Dose: 2 mg Ondansetron HCl (Zofran Inj) 4 mg IVP Q6 PRN PRN Reason: Nausea/Vomiting Last Admin: 02/22/18 22:49 Dose: 4 mg Oxycodone/Acetaminophen (Percocet 5/325 Mg Tab) 1 tab PO Q4 PRN PRN Reason: Pain, moderate (4-7) Stop: 02/24/18 05:49 Pantoprazole Sodium (Protonix Inj) 40 mg IVP DAILY [facility] - Labs Labs: 02/23/18 05:40 02/23/18 05:40 PT 14.0 SECONDS (9.4-12.5) H 02/22/18 06:15 INR 1.21 02/22/18 06:15 APTT 28.1 Seconds (25.1-36.5) 02/22/18 06:15 - Extremities Exam Additional comments: LLE: Dressings CDI, drain dressings with mild bloody drainage SHERLY drain with moderate bloody drainage (70 cc overnight) diffuse tenderness moderate edema sensation intact SP/DP/TN motor intact EHL/FHL/TA/G/HS/Q PT/DP pulses intact calves soft NT b/l Assessment and Plan (1) Abscess of left hip Assessment & Plan: POD #1 s/p L hip I&D -recommend repeat CT L hip to evaluate for existing loculations of pus -If evidence of pus, recommend IR drainage due to complexity of open OR approach -PT/OT WBAT -monitor drain output, may remove tomorrow if subsides <50 cc -Dressing change tomorrow above d/w Dr. Day in agreement Status: Acute
[2018-02-23] MEDS: Alum-Mag Hydrox-Simethicone Susp (30 mL) PO PRN (13:56)
--- NOTE | 2018-02-23 14:33 | CP.PCM.PN ---
<April Hubbard - Last Filed: 02/23/18 14:43> Subjective - Date & Time of Evaluation Date of Evaluation: 02/23/18 Time of Evaluation: 14:30 - Subjective Subjective: INTERNAL MEDICINE PROGRESS NOTE FOR DR. AMPARO Hubbard PGY1 Pt seen and examined at bedside this am. Pt reported pain overnight, and was agitated. CIWA reported by nursing staff was 6. Pt is s/p I&D of L hip. SHERLY drain is draining dark red bloody fluid. Dressing is in place, c/d/i. He denies fevers, chills, nausea, vomiting, constipation, diarrhea, dysuria. Objective - Vital Signs/Intake and Output Vital Signs (last 24 hours): Temp Pulse Resp BP Pulse Ox 99 F 72 18 131/78 99 02/23/18 06:00 02/23/18 06:00 02/23/18 06:00 02/23/18 06:00 02/23/18 06:00 Intake and Output: 02/23/18 02/23/18 06:59 18:59 Intake Total 0 Output Total 150 Balance -150 - Medications Medications: Current Medications Acetaminophen (Tylenol 325mg Tab) 650 mg PO Q6 PRN PRN Reason: Pain, Mild (1-3) Last Admin: 02/23/18 03:21 Dose: 650 mg Al Hydrox/Mg Hydrox/Simethicone (Maalox Plus 30 Ml) 30 ml PO DAILY PRN PRN Reason: Indigestion / Heartburn Last Admin: 02/23/18 13:56 Dose: 30 ml Docusate Sodium (Colace) 100 mg PO TID [facility] Last Admin: 02/23/18 13:11 Dose: 100 mg Enoxaparin Sodium (Lovenox) 40 mg SC DAILY [facility]; Protocol Last Admin: 02/23/18 10:57 Dose: 40 mg Ferrous Sulfate (Feosol) 324 mg PO TID [facility] Last Admin: 02/23/18 13:11 Dose: 324 mg Folic Acid (Folic Acid) 1 mg PO DAILY [facility] Last Admin: 02/23/18 10:57 Dose: 1 mg Sodium Chloride (Sodium Chloride 0.9%) 1,000 mls @ 100 mls/hr IV .Q10H [facility] Last Admin: 02/22/18 11:12 Dose: 100 mls/hr Lactated Ringer's (Lactated Ringer's) 1,000 mls @ 100 mls/hr IV .Q10H [facility] Last Admin: 02/22/18 22:19 Dose: 100 mls/hr Vancomycin HCl (Vancomycin 1gm) 1 gm in 250 mls @ 167 mls/hr IVPB Q12H [facility]; P rotocol Last Admin: 02/23/18 11:03 Dose: 167 mls/hr Piperacillin Sod/Tazobactam Sod (Zosyn 3.375 In Ns 100ml) 100 mls @ 25 mls/hr IVPB Q8 [facility]; Protocol Stop: 02/23/18 17:59 Last Admin: 02/23/18 11:02 Dose: 25 mls/hr Ibuprofen (Motrin Tab) 600 mg PO Q6 PRN PRN Reason: Fever >100.4 F Last Admin: 02/22/18 01:30 Dose: 600 mg Lorazepam (Ativan) 2 mg IVP Q4H PRN; Protocol PRN Reason: Symptoms of alcohol withdrawl Last Admin: 02/21/18 10:17 Dose: 2 mg Methadone HCl (Methadone) 10 mg PO Q6 PRN PRN Reason: Pain, severe (8-10) Last Admin: 02/23/18 13:10 Dose: 10 mg Morphine Sulfate (Morphine) 2 mg IVP Q4 PRN PRN Reason: Pain, severe (8-10) Last Admin: 02/22/18 22:48 Dose: 2 mg Ondansetron HCl (Zofran Inj) 4 mg IVP Q6 PRN PRN Reason: Nausea/Vomiting Last Admin: 02/22/18 22:49 Dose: 4 mg Oxycodone/Acetaminophen (Percocet 5/325 Mg Tab) 1 tab PO Q4 PRN PRN Reason: Pain, moderate (4-7) Stop: 02/24/18 05:49 Pantoprazole Sodium (Protonix Inj) 40 mg IVP DAILY [facility] Last Admin: 02/23/18 13:10 Dose: 40 mg - Labs Labs: 02/23/18 05:40 02/23/18 05:40 PT 14.0 SECONDS (9.4-12.5) H 02/22/18 06:15 INR 1.21 02/22/18 06:15 APTT 28.1 Seconds (25.1-36.5) 02/22/18 06:15 - Constitutional Appears: Well, Non-toxic, No Acute Distress - Head Exam Head Exam: NORMAL INSPECTION, NORMOCEPHALIC - Eye Exam Eye Exam: EOMI, Normal appearance - ENT Exam ENT Exam: Mucous Membranes Moist - Neck Exam Neck Exam: Normal Inspection - Respiratory Exam Respiratory Exam: Clear to Ausculation Bilateral, NORMAL BREATHING PATTERN - Cardiovascular Exam Cardiovascular Exam: REGULAR RHYTHM, +S1, +S2 - GI/Abdominal Exam Additional comments: [id number] hard abscess noted in L groin region. Very tender to palpation - Extremities Exam Additional comments: Dressing in place along L hip - Back Exam Back Exam: NORMAL INSPECTION - Neurological Exam Neurological Exam: Alert, Awake, Oriented x3 - Psychiatric Exam Psychiatric exam: Normal Affect, Normal Mood - Skin Skin Exam: Dry, Intact, Warm Assessment and Plan - Assessment and Plan (Free Text) Assessment: 47yo M w PMH of poly-substance abuse, sciatica, Hep C who presents to the ED with L hip pain, admitted for further evaluation and treatment of L hip/ L groin abscess. Pt is s/p I&D L hip (02/22/18). Plan: L hip/L groin abscess POD s/p I&D L hip. Multiple loculation and abscesses removed. Per ortho, there is still a pelvic mass in the medial region that wasn't able to be removed, which will require IR drainage. Pt febrile overnight, leukocytosis increasing. Likely secondary to pelvic mass. CT abd/pel: multiloculated abscess from L hip synovium to L iliac muscle, suggestive of disseminated L iliac osteomyelitis/L sacroiliac septic arthritis Restart vanc/zosyn after the surgeryst xray, coags, ekg done already f/u BCx, UCx, fluid cultures start methadone for pain control tylenol 650mg PO q6h PRN mild pain, percocet 1tab PO q4h PRN mod pain, morphine 4mg IV q4h PRN severe pain warm compresses q2h, as per Gen Sx ID consulted, Dr. Olmstead - f/u recs PT/OT regular diet Microcytic Anemia h/h stable Obtain FOBT repeat U/a f/u smear TIBC, Fe, %sat ferritin B12, folate retic count Polysubstance Abuse UDS + for cocaine and opiates Pt admitted to heroin and cocaine use CIWA protocol. CIWA 6 overnight methadone started for opioid withdrawal seizure precautions fall precautions ativan 2mg IV q4h PRN zofran 4mg IV q6h PRN counseled on cessation PPx DVT: SCD. GI: Protonix IVP Case seen, examined and discussed with attending physician, Dr. Mata <Rachel Mata - Last Filed: 02/24/18 16:32> Objective - Vital Signs/Intake and Output Vital Signs (last 24 hours): Temp Pulse Resp BP Pulse Ox 98.5 F 62 18 128/80 98 02/24/18 06:00 02/24/18 06:00 02/24/18 06:00 02/24/18 06:00 02/24/18 06:00 Intake and Output: 02/24/18 02/24/18 06:59 18:59 Intake Total 540 Output Total 580 Balance -40 - Medications Medications: Current Medications Acetaminophen (Tylenol 325mg Tab) 650 mg PO Q6 PRN PRN Reason: Pain, Mild (1-3) Last Admin: 02/23/18 03:21 Dose: 650 mg Al Hydrox/Mg Hydrox/Simethicone (Maalox Plus 30 Ml) 30 ml PO DAILY PRN PRN Reason: Indigestion / Heartburn Last Admin: 02/24/18 10:23 Dose: 30 ml Docusate Sodium (Colace) 100 mg PO TID [facility] Last Admin: 02/24/18 14:49 Dose: 100 mg Enoxaparin Sodium (Lovenox) 40 mg SC DAILY [facility]; Protocol Last Admin: 02/24/18 09:20 Dose: 40 mg Ferrous Sulfate (Feosol) 324 mg PO TID [facility] Last Admin: 02/24/18 14:49 Dose: 324 mg Folic Acid (Folic Acid) 1 mg PO DAILY [facility] Last Admin: 02/24/18 09:22 Dose: 1 mg Vancomycin HCl (Vancomycin 1gm) 1 gm in 250 mls @ 167 mls/hr IVPB Q12H [facility]; Protocol Last Admin: 02/24/18 09:23 Dose: 167 mls/hr Ibuprofen (Motrin Tab) 600 mg PO Q6 PRN PRN Reason: Fever >100.4 F Last Admin: 02/22/18 01:30 Dose: 600 mg Lorazepam (Ativan) 2 mg IVP Q4H PRN; Protocol PRN Reason: Symptoms of alcohol withdrawl Last Admin: 02/21/18 10:17 Dose: 2 mg Methadone HCl (Methadone) 10 mg PO Q6 PRN PRN Reason: Pain, severe (8-10) Last Admin: 02/24/18 01:58 Dose: 10 mg Morphine Sulfate (Morphine) 2 mg IVP Q4 PRN PRN Reason: Pain, severe (8-10) Last Admin: 02/22/18 22:48 Dose: 2 mg Mupirocin (Bactroban Ointment) 0 gm NS BID [facility] Ondansetron HCl (Zofran Inj) 4 mg IVP Q6 PRN PRN Reason: Nausea/Vomiting Last Admin: 02/22/18 22:49 Dose: 4 mg Pantoprazole Sodium (Protonix Ec Tab) 40 mg PO ACB [facility] Simethicone (Mylicon Chew Tab) 80 mg PO [facility] PRN PRN Reason: GI distress Last Admin: 02/24/18 14:49 Dose: 80 mg - Labs Labs: 02/24/18 06:20 02/24/18 06:20 PT 14.0 SECONDS (9.4-12.5) H 02/22/18 06:15 INR 1.21 02/22/18 06:15 APTT 28.1 Seconds (25.1-36.5) 02/22/18 06:15 Attending/Attestation - Attestation I have personally seen and examined this patient.: Yes I have fully participated in the care of the patient.: Yes I have reviewed all pertinent clinical information, including history, physical exam and plan: Yes Notes (Text): 02/24/18 16:26 Attending note; Patient seen and examined with resident. Patient is complaining of left hip pain. s/p L hip open debridement and washout. Patient is a 47-year-old male with PMH of poly-substance abuse, IVDA, Hepatitis c, sciatica, history of MRSA bacteremia is admitted with Left hip pain. 1. Left hip septic arthritis / possible osteomyelitis of sacroiliac joint. Abdomen and pelvis CT showed multiloculated abscess from L hip synovium to L iliac muscle, suggestive of disseminated L iliac osteomyelitis/L sacroiliac sept ic arthritis. Status post left hip open debridement and washout.drain in place.. ID evaluation appreciated. We will continue vancomycin and Zosyn. 2. Anemia; chronic. status post 3 units PRBC transfusion. Hemoglobin is 9.1. No active bleeding noted. 3. History of chronic hep C. untreated. HIV is negative. 4. IV drug abuse. Complete drug abuse cessation is strongly recommended. Urine drug screen is positive for cocaine and opiates. Pain management with IV morphine and methadone. 5. History of alcohol abuse; monitor with CIWA protocol. IV Ativan when necessary ordered. PT evaluation requested. Case discussed with senior case manager in detail. Case discussed with orthopedics in detail. Repeat CT hip ordered. We will get intervention radiology opinion for the need for further debridement. The diagnosis, treatment option explained to the patient in detail. Patient [place] [facility] [place]. 02/24/18 16:27 02/24/18 16:31
--- NOTE | 2018-02-23 15:15 | CT ---
Date of service: 02/23/2018 PROCEDURE: CT Abdomen and Pelvis without intravenous contrast HISTORY: L groin/pelvic abscess adjacent to femoral artery COMPARISON: None. TECHNIQUE: Technique. Contrast dose: Radiation dose: Total exam DLP = 559.27 mGy-cm. This CT exam was performed using one or more of the following dose reduction techniques: Automated exposure control, adjustment of the mA and/or kV according to patient size, and/or use of iterative reconstruction technique. FINDINGS: LOWER THORAX: Bilateral pleural effusions with bibasilar consolidation, right greater than left. LIVER: Unremarkable. No gross lesion or ductal dilatation. GALLBLADDER AND BILE DUCTS: Unremarkable. PANCREAS: Unremarkable. No gross lesion or ductal dilatation. SPLEEN: Unremarkable. ADRENALS: Unremarkable. No mass. KIDNEYS AND URETERS: Unremarkable. No hydronephrosis. No solid mass. VASCULATURE: Unremarkable. No aortic aneurysm. No aortic atherosclerotic calcification or mural plaque present. BOWEL: Unremarkable. No obstruction. No gross mural thickening. APPENDIX: New moderate abdominal pelvic ascites. Accompanying anasarca. PERITONEUM: Unremarkable. No free fluid. No free air. LYMPH NODES: Unremarkable. No enlarged lymph nodes. BLADDER: Unremarkable. REPRODUCTIVE: Unremarkable. BONES: Stable extensive sclerotic changes of the left pelvic bones and femoral head compatible with chronic osteomyelitis. OTHER FINDINGS: Drainage tube catheter in a left groin abscess with almost complete resolution of fluid collection though assessment is somewhat limited due to streak artifact from pelvic bones. Patella persistent left hip joint effusion with scattered areas of gas in the distal left lizzy facial soft tissues. IMPRESSION: New abdomen and pelvic ascites as well as anasarca. New bilateral pleural effusions as atelectasis at the lung bases. Drainage tube catheter in a left groin abscess with almost complete resolution of fluid collection though assessment is somewhat limited due to streak artifact from pelvic bones. Patella persistent left hip joint effusion with scattered areas of gas in the distal left lizzy facial soft tissues
--- NOTE | 2018-02-23 17:17 | CP.PCM.PN ---
Subjective - Date & Time of Evaluation Date of Evaluation: 02/23/18 Time of Evaluation: 15:00 - Subjective Subjective: Infectious Disease Follow Up: February 23, 2018 47 yo male with PMHx of Hepatitis C, MRSA bacteremia history. The patient complains of pain in the back, buttocks, and left groin. He told the ER that it started 3 days ago. He states now that it has been over a week now. The patient has had chronic back pain and sciatic pain from at least 4 months. He is uncooperative with the interview and exam. Known history of Heroin use. CT scan showed large groin abscess invading into the left hip joint measuring [id number] invading into the left hip. questionable osteomyelitis sacral and sacroiliac joint. Taken for I&D yesterday by Orthopedics. Unfortunately, the entire collection could not be drained due to difficulty in reaching certain central areas. Restarted antibiotics. Cultures from the OR can be negative as antibiotics were given on admission. Objective - Vital Signs/Intake and Output Vital Signs (last 24 hours): Temp Pulse Resp BP Pulse Ox 99 F 72 18 131/78 99 02/23/18 06:00 02/23/18 06:00 02/23/18 06:00 02/23/18 06:00 02/23/18 06:00 Intake and Output: 02/23/18 02/23/18 06:59 18:59 Intake Total 0 Output Total 150 Balance -150 - Medications Medications: Current Medications Acetaminophen (Tylenol 325mg Tab) 650 mg PO Q6 PRN PRN Reason: Pain, Mild (1-3) Last Admin: 02/23/18 03:21 Dose: 650 mg Al Hydrox/Mg Hydrox/Simethicone (Maalox Plus 30 Ml) 30 ml PO DAILY PRN PRN Reason: Indigestion / Heartburn Last Admin: 02/23/18 13:56 Dose: 30 ml Docusate Sodium (Colace) 100 mg PO TID [facility] Last Admin: 02/23/18 13:11 Dose: 100 mg Enoxaparin Sodium (Lovenox) 40 mg SC DAILY [facility]; Protocol Last Admin: 02/23/18 10:57 Dose: 40 mg Ferrous Sulfate (Feosol) 324 mg PO TID [facility] Last Admin: 02/23/18 13:11 Dose: 324 mg Folic Acid (Folic Acid) 1 mg PO DAILY [facility] Last Admin: 02/23/18 10:57 Dose: 1 mg Sodium Chloride (Sodium Chloride 0.9%) 1,000 mls @ 100 mls/hr IV .Q10H [facility] Last Admin: 02/22/18 11:12 Dose: 100 mls/hr Lactated Ringer's (Lactated Ringer's) 1,000 mls @ 100 mls/hr IV .Q10H [facility] Last Admin: 02/22/18 22:19 Dose: 100 mls/hr Vancomycin HCl (Vancomycin 1gm) 1 gm in 250 mls @ 167 mls/hr IVPB Q12H [facility]; Protocol Last Admin: 02/23/18 11:03 Dose: 167 mls/hr Piperacillin Sod/Tazobactam Sod (Zosyn 3.375 In Ns 100ml) 100 mls @ 25 mls/hr IVPB Q8 [facility]; Protocol Stop: 02/23/18 17:59 Last Admin: 02/23/18 16:24 Dose: 25 mls/hr Ibuprofen (Motrin Tab) 600 mg PO Q6 PRN PRN Reason: Fever >100.4 F Last Admin: 02/22/18 01:30 Dose: 600 mg Lorazepam (Ativan) 2 mg IVP Q4H PRN; Protocol PRN Reason: Symptoms of alcohol withdrawl Last Admin: 02/21/18 10:17 Dose: 2 mg Methadone HCl (Methadone) 10 mg PO Q6 PRN PRN Reason: Pain, severe (8-10) Last Admin: 02/23/18 13:10 Dose: 10 mg Morphine Sulfate (Morphine) 2 mg IVP Q4 PRN PRN Reason: Pain, severe (8-10) Last Admin: 02/22/18 22:48 Dose: 2 mg Ondansetron HCl (Zofran Inj) 4 mg IVP Q6 PRN PRN Reason: Nausea/Vomiting Last Admin: 02/22/18 22:49 Dose: 4 mg Oxycodone/Acetaminophen (Percocet 5/325 Mg Tab) 1 tab PO Q4 PRN PRN Reason: Pain, moderate (4-7) Stop: 02/24/18 05:49 Pantoprazole Sodium (Protonix Inj) 40 mg IVP DAILY [facility] Last Admin: 02/23/18 13:10 Dose: 40 mg - Labs Labs: 02/23/18 05:40 02/23/18 05:40 PT 14.0 SECONDS (9.4-12.5) H 02/22/18 06:15 INR 1.21 02/22/18 06:15 APTT 28.1 Seconds (25.1-36.5) 02/22/18 06:15 - Constitutional Appears: Non-toxic, No Acute Distress, Chronically Ill - Head Exam Head Exam: ATRAUMATIC, NORMOCEPHALIC - Eye Exam Eye Exam: EOMI, PERRL Pupil Exam: NORMAL ACCOMODATION, PERRL - ENT Exam ENT Exam: Mucous Membranes Moist, Normal External Ear Exam, TM's Normal Bilaterally - Neck Exam Neck Exam: Full ROM, Normal Inspection - Respiratory Exam Respiratory Exam: Clear to Ausculation Bilateral, NORMAL BREATHING PATTERN. absent: Rales, Rhonchi, Wheezes - Cardiovascular Exam Cardiovascular Exam: REGULAR RHYTHM, RRR, +S1, +S2 - GI/Abdominal Exam GI & Abdominal Exam: Soft, Normal Bowel Sounds. absent: Distended, Tenderness - Rectal Exam Rectal Exam: NORMAL INSPECTION - Extremities Exam Extremities Exam: Full ROM Additional comments: left lower leg swelling. Decrease ROM of the right hip. Left hip I&D. - Neurological Exam Neurological Exam: Alert, Awake, CN II-XII Intact, Oriented x3 - Psychiatric Exam Psychiatric exam: Normal Affect, Normal Mood - Skin Skin Exam: Intact, Normal Color Assessment and Plan - Assessment and Plan (Free Text) Assessment: 47 yo male with worsening left groin pain and swelling. The patient was found on CT of the abdomen and pelvis to have: "Extensive erosive lytic changes of the left femoral head and the corresponding ax packed of the left acetabulum with associated large joint effusion and periosteal new bone formation. Secondary joint effusion with multiloculated abscess measuring 13.7 x 11.2 x 9.1 centimeters in craniocaudad, AP and long sverse dimensions. This arises from the left hip joint synovium extending into the surrounding left iliacus muscle and adjacent periarticular muscles/soft tissues. Associated heterogeneous lytic changes of the left iliac bone extending into the left sacroiliac joint and the corresponding aspect of the left sacral ala. 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 Noted started on Zosyn and Vancomycin IV. Given that the patient is having surgeric intervention, stop IV antibiotics until after the procedure and cultures have been taken. Restarted Zosyn and IV Vancomycin antibiotic regimen. Supportive care. Taken to OR for I&D of the left hip. Incomplete I&D due to difficulties in reaching portions of the collection. Cultures taken from the OR can be negative as the patient was on Zosyn and Vancomcyin on admission. Thank you for allowing me to participate in the care of the patient, we will follow with you.
[2018-02-23] MEDS: Sodium Chloride 0.9% 1,000 ML IV SCH (18:29)
--- NOTE | 2018-02-23 23:19 | PN ---
DATE: 02/23/2018 TIME: 05:25 p.m. SUBJECTIVE: I reviewed the patient's postoperative CT scan. Open drainage of the complex left septic hip has been performed. The CT appearance is much improved. There remains extensive phlegmon, but no obvious drainable fluid collections are present. A brief review of the op note was performed. There is no significant collection of fluid in the medial aspect of the left hip on the CT scan. At the current time, I would continue appropriate antibiotics and tailor to the microbiology findings. Followup CT scan can be performed as an outpatient. Another option would be outpatient MRI. There is no obvious drainable collection at this point in time. David Polanco MD MTDD
[2018-02-24] MEDS: Alum-Mag Hydrox-Simethicone Susp (30 mL) PO PRN ×2 (04:27→10:23)
[2018-02-24 06:48] LABS: ALB/GLOB RATIO 0.6 (1.1-1.8); ALBUMIN 2.6 g/dL (3.0-4.8); ALT/SGPT 17 U/L (7-56); AST/SGOT 22 U/L (17-59); BLOOD UREA NITROGEN 9 mg/dL (7-21); CALCIUM 8.3 mg/dL (8.4-10.5); GFR NON-AFRICAN AMERICAN > 60
[2018-02-24 06:56] LABS: BASO # 0.02 K/mm3 (0.0-2.0); BASO % 0.2 % (0.0-3.0); EOS # 0.3 (0.0-0.7); EOS % 2.8 % (1.5-5.0); GRAN # 7.51 (1.4-6.5); HEMOGLOBIN 8.7 g/dL (14.0-18.0); LYMPH # 2.3 (1.2-3.4); LYMPH % 20.9 % (22.0-35.0); MEAN CELL VOLUME 74.5 fl (80.0-105.0); MEAN CORPUSCULAR HEMOGLOBIN 23.6 pg (25.0-35.0); MEAN CORPUSCULAR HGB CONC 31.8 g/dl (31.0-37.0); MEAN PLATELET VOLUME 7.9 fl (7.0-11.0); MONO # 0.8 (0.1-0.6); MONO % 7.1 % (1.0-6.0); RBC 3.68 10^6/uL (3.5-6.1); RED CELL DISTRIBUTION WIDTH 18.2 % (11.5-14.5); WHITE BLOOD COUNT 10.9 10^3/uL (4.5-11.0)
[2018-02-24] MEDS: Enoxaparin 40 mg Syringe SC SCH (09:20)
[2018-02-24] MEDS: Vancomycin 1gm in NS 250ml 1 GM/250 ML BAG IVPB SCH ×2 (09:23→21:08)
[2018-02-24] MEDS ORDERED: Mupirocin 2% Ointment 15 GM TUBE TOP SCH (10:00)
[2018-02-24] MEDS ORDERED: Mupirocin 2% Ointment 15 GM TUBE NS SCH ×2 (10:00)
[2018-02-24] MEDS: Mupirocin 2% Ointment 15 GM TUBE NS SCH ×2 (10:00→17:09)
[2018-02-24] MEDS ORDERED: Simethicone 80 mg Chewtab PO PRN (14:09)
--- NOTE | 2018-02-24 14:13 | CP.PCM.PN ---
Subjective - Date & Time of Evaluation Date of Evaluation: 02/24/18 Time of Evaluation: 14:13 - Subjective Subjective: Patient seen and examined at bedside comfortable. C/o abdominal pain related to bloating. Pain continues to improve, well controlled with PO meds. No new complaints. Denies CP/SOB/fever/BAUM. Objective - Vital Signs/Intake and Output Vital Signs (last 24 hours): Temp Pulse Resp BP Pulse Ox 98.5 F 62 18 128/80 98 02/24/18 06:00 02/24/18 06:00 02/24/18 06:00 02/24/18 06:00 02/24/18 06:00 Intake and Output: 02/24/18 02/24/18 06:59 18:59 Intake Total 540 Output Total 580 Balance -40 - Medications Medications: Current Medications Acetaminophen (Tylenol 325mg Tab) 650 mg PO Q6 PRN PRN Reason: Pain, Mild (1-3) Last Admin: 02/23/18 03:21 Dose: 650 mg Al Hydrox/Mg Hydrox/Simethicone (Maalox Plus 30 Ml) 30 ml PO DAILY PRN PRN Reason: Indigestion / Heartburn Last Admin: 02/24/18 10:23 Dose: 30 ml Docusate Sodium (Colace) 100 mg PO TID [facility] Last Admin: 02/24/18 09:22 Dose: 100 mg Enoxaparin Sodium (Lovenox) 40 mg SC DAILY [facility]; Protocol Last Admin: 02/24/18 09:20 Dose: 40 mg Ferrous Sulfate (Feosol) 324 mg PO TID [facility] Last Admin: 02/24/18 09:23 Dose: 324 mg Folic Acid (Folic Acid) 1 mg PO DAILY [facility] Last Admin: 02/24/18 09:22 Dose: 1 mg Vancomycin HCl (Vancomycin 1gm) 1 gm in 250 mls @ 167 mls/hr IVPB Q12H [facility]; Protocol Last Admin: 02/24/18 09:23 Dose: 167 mls/hr Ibuprofen (Motrin Tab) 600 mg PO Q6 PRN PRN Reason: Fever >100.4 F Last Admin: 02/22/18 01:30 Dose: 600 mg Lorazepam (Ativan) 2 mg IVP Q4H PRN; Protocol PRN Reason: Symptoms of alcohol withdrawl Last Admin: 02/21/18 10:17 Dose: 2 mg Methadone HCl (Methadone) 10 mg PO Q6 PRN PRN Reason: Pain, severe (8-10) Last Admin: 02/24/18 01:58 Dose: 10 mg Morphine Sulfate (Morphine) 2 mg IVP Q4 PRN PRN Reason: Pain, severe (8-10) Last Admin: 02/22/18 22:48 Dose: 2 mg Mupirocin (Bactroban Ointment) 0 gm NS BID [facility] Ondansetron HCl (Zofran Inj) 4 mg IVP Q6 PRN PRN Reason: Nausea/Vomiting Last Admin: 02/22/18 22:49 Dose: 4 mg Pantoprazole Sodium (Protonix Inj) 40 mg IVP DAILY [facility] Last Admin: 02/24/18 09:22 Dose: 40 mg Simethicone (Mylicon Chew Tab) 80 mg PO [facility] PRN PRN Reason: GI distress - Labs Labs: 02/24/18 06:20 02/24/18 06:20 PT 14.0 SECONDS (9.4-12.5) H 02/22/18 06:15 INR 1.21 02/22/18 06:15 APTT 28.1 Seconds (25.1-36.5) 02/22/18 06:15 - Extremities Exam Additional comments: LLE: Dressings CDI, drain dressings with mild bloody drainage SHERLY drain with moderate bloody drainage (30 cc overnight) Incision CDI with steri strips diffuse tenderness firm medial groin mass moderate edema sensation intact SP/DP/TN motor intact EHL/FHL/TA/G/HS/Q PT/DP pulses intact calves soft NT b/l Assessment and Plan (1) Abscess of left hip Assessment & Plan: POD #2 s/p L hip I&D -Drain removed, dressings changed -IR consult appreciated, no drainable fluid collection to drain -Dr. Day recommends no further orthopedic surgical intervention -Recommend General surgery consultation if medial groin mass removal desired -PT/OT WBAT, encourage OOB above d/w Dr. Day in agreement Status: Acute
--- NOTE | 2018-02-24 14:22 | CP.PCM.PN ---
<April Hubbard - Last Filed: 02/24/18 14:17> Subjective - Date & Time of Evaluation Date of Evaluation: 02/24/18 Time of Evaluation: 14:17 - Subjective Subjective: INTERNAL MEDICINE PROGRESS NOTE FOR DR. AMPARO Hubbard PGY1 PT seen and examined at bedside this am. No acute nursing events overnight. Pt resting comfortably in bed. His pain is controlled, he is tolerating his diet. He has pain when he moves, but 12 point ROS is otherwise negative. Objective - Vital Signs/Intake and Output Vital Signs (last 24 hours): Temp Pulse Resp BP Pulse Ox 98.5 F 62 18 128/80 98 02/24/18 06:00 02/24/18 06:00 02/24/18 06:00 02/24/18 06:00 02/24/18 06:00 Intake and Output: 02/24/18 02/24/18 06:59 18:59 Intake Total 540 Output Total 580 Balance -40 - Medications Medications: Current Medications Acetaminophen (Tylenol 325mg Tab) 650 mg PO Q6 PRN PRN Reason: Pain, Mild (1-3) Last Admin: 02/23/18 03:21 Dose: 650 mg Al Hydrox/Mg Hydrox/Simethicone (Maalox Plus 30 Ml) 30 ml PO DAILY PRN PRN Reason: Indigestion / Heartburn Last Admin: 02/24/18 10:23 Dose: 30 ml Docusate Sodium (Colace) 100 mg PO TID [facility] Last Admin: 02/24/18 09:22 Dose: 100 mg Enoxaparin Sodium (Lovenox) 40 mg SC DAILY [facility]; Protocol Last Admin: 02/24/18 09:20 Dose: 40 mg Ferrous Sulfate (Feosol) 324 mg PO TID [facility] Last Admin: 02/24/18 09:23 Dose: 324 mg Folic Acid (Folic Acid) 1 mg PO DAILY [facility] Last Admin: 02/24/18 09:22 Dose: 1 mg Vancomycin HCl (Vancomycin 1gm) 1 gm in 250 mls @ 167 mls/hr IVPB Q12H [facility]; Protocol Last Admin: 02/24/18 09:23 Dose: 167 mls/hr Ibuprofen (Motrin Tab) 600 mg PO Q6 PRN PRN Reason: Fever >100.4 F Last Admin: 02/22/18 01:30 Dose: 600 mg Lorazepam (Ativan) 2 mg IVP Q4H PRN; Protocol PRN Reason: Symptoms of alcohol withdrawl Last Admin: 02/21/18 10:17 Dose: 2 mg Methadone HCl (Methadone) 10 mg PO Q6 PRN PRN Reason: Pain, severe (8-10) Last Admin: 02/24/18 01:58 Dose: 10 mg Morphine Sulfate (Morphine) 2 mg IVP Q4 PRN PRN Reason: Pain, severe (8-10) Last Admin: 02/22/18 22:48 Dose: 2 mg Mupirocin (Bactroban Ointment) 0 gm NS BID [facility] Ondansetron HCl (Zofran Inj) 4 mg IVP Q6 PRN PRN Reason: Nausea/Vomiting Last Admin: 02/22/18 22:49 Dose: 4 mg Pantoprazole Sodium (Protonix Inj) 40 mg IVP DAILY [facility] Last Admin: 02/24/18 09:22 Dose: 40 mg Simethicone (Mylicon Chew Tab) 80 mg PO [facility] PRN PRN Reason: GI distress - Labs Labs: 02/24/18 06:20 02/24/18 06:20 PT 14.0 SECONDS (9.4-12.5) H 02/22/18 06:15 INR 1.21 02/22/18 06:15 APTT 28.1 Seconds (25.1-36.5) 02/22/18 06:15 - Additional Findings Additional findings: - Constitutional Appears: Well, Non-toxic, No Acute Distress - Head Exam Head Exam: NORMAL INSPECTION, NORMOCEPHALIC - Eye Exam Eye Exam: EOMI, Normal appearance - ENT Exam ENT Exam: Mucous Membranes Moist - Neck Exam Neck Exam: Normal Inspection - Respiratory Exam Respiratory Exam: Clear to Ausculation Bilateral, NORMAL BREATHING PATTERN - Cardiovascular Exam Cardiovascular Exam: REGULAR RHYTHM, +S1, +S2 - GI/Abdominal Exam Additional comments: [id number] hard abscess noted in L groin region. Very tender to palpation - Extremities Exam Additional comments: Dressing in place along L hip - Back Exam Back Exam: NORMAL INSPECTION - Neurological Exam Neurological Exam: Alert, Awake, Oriented x3 - Psychiatric Exam Psychiatric exam: Normal Affect, Normal Mood - Skin Skin Exam: Dry, Intact, Warm Assessment and Plan - Assessment and Plan (Free Text) Assessment: 47yo M w PMH of poly-substance abuse, sciatica, Hep C who presents to the ED with L hip pain, admitted for further evaluation and treatment of L hip/ L groin abscess. Pt is s/p I&D L hip (02/22/18). Plan: L hip/L groin abscess Pt afebrile, leukocytosis resolving POD s/p I&D L hip. Multiple loculation and abscesses removed. Per ortho, there is still a pelvic mass in the medial region that wasn't able to be removed Per IR, no plans for further intervention Continue vanc/zosyn. F/u cultures for further abx based on cultures. Will discuss future long-term antibiotics. Pt has a known hx of IV drug abuse continue methadone for pain control tylenol 650mg PO q6h PRN mild pain, percocet 1tab PO q4h PRN mod pain, morphine 4mg IV q4h PRN severe pain warm compresses q2h, as per Gen Sx ID consulted, Dr. Olmstead - f/u recs PT/OT regular diet MRSA + nares mupirocin bid x 5 days Microcytic Anemia h/h stable Polysubstance Abuse UDS + for cocaine and opiates Pt admitted to heroin and cocaine use [facility] protocol. methadone started for opioid withdrawal seizure precautions fall precautions ativan 2mg IV q4h PRN zofran 4mg IV q6h PRN counseled on cessation PPx DVT: SCD. GI: Protonix IVP Dispo: Awaiting culture results to tailor antibiotic. Pt may require long-term antibiotics Case seen, examined and discussed with attending physician, Dr. Mata <Rachel Mata - Last Filed: 02/24/18 16:34> Objective - Vital Signs/Intake and Output Vital Signs (last 24 hours): Temp Pulse Resp BP Pulse Ox 98.5 F 62 18 128/80 98 02/24/18 06:00 02/24/18 06:00 02/24/18 06:00 02/24/18 06:00 02/24/18 06:00 Intake and Output: 02/24/18 02/24/18 06:59 18:59 Intake Total 540 Output Total 580 Balance -40 - Medications Medications: Current Medications Acetaminophen (Tylenol 325mg Tab) 650 mg PO Q6 PRN PRN Reason: Pain, Mild (1-3) Last Admin: 02/23/18 03:21 Dose: 650 mg Al Hydrox/Mg Hydrox/Simethicone (Maalox Plus 30 Ml) 30 ml PO DAILY PRN PRN Reason: Indigestion / Heartburn Last Admin: 02/24/18 10:23 Dose: 30 ml Docusate Sodium (Colace) 100 mg PO TID [facility] Last Admin: 02/24/18 14:49 Dose: 100 mg Enoxaparin Sodium (Lovenox) 40 mg SC DAILY [facility]; Protocol Last Admin: 02/24/18 09:20 Dose: 40 mg Ferrous Sulfate (Feosol) 324 mg PO TID [facility] Last Admin: 02/24/18 14:49 Dose: 324 mg Folic Acid (Folic Acid) 1 mg PO DAILY [facility] Last Admin: 02/24/18 09:22 Dose: 1 mg Vancomycin HCl (Vancomycin 1gm) 1 gm in 250 mls @ 167 mls/hr IVPB Q12H [facility]; Protocol Last Admin: 02/24/18 09:23 Dose: 167 mls/hr Piperacillin Sod/Tazobactam Sod (Zosyn 3.375 In Ns 100ml) 100 mls @ 25 mls/hr IVPB Q8 [facility]; Protocol Stop: 02/27/18 01:59 Ibuprofen (Motrin Tab) 600 mg PO Q6 PRN PRN Reason: Fever >100.4 F Last Admin: 02/22/18 01:30 Dose: 600 mg Lorazepam (Ativan) 2 mg IVP Q4H PRN; Protocol PRN Reason: Symptoms of alcohol withdrawl Last Admin: 02/21/18 10:17 Dose: 2 mg Methadone HCl (Methadone) 10 mg PO Q6 PRN PRN Reason: Pain, severe (8-10) Last Admin: 02/24/18 01:58 Dose: 10 mg Morphine Sulfate (Morphine) 2 mg IVP Q4 PRN PRN Reason: Pain, severe (8-10) Last Admin: 02/22/18 22:48 Dose: 2 mg Mupirocin (Bactroban Ointment) 0 gm NS BID [facility] Ondansetron HCl (Zofran Inj) 4 mg IVP Q6 PRN PRN Reason: Nausea/Vomiting Last Admin: 02/22/18 22:49 Dose: 4 mg Pantoprazole Sodium (Protonix Ec Tab) 40 mg PO ACB [facility] Simethicone (Mylicon Chew Tab) 80 mg PO [facility] PRN PRN Reason: GI distress Last Admin: 02/24/18 14:49 Dose: 80 mg - Labs Labs: 02/24/18 06:20 02/24/18 06:20 PT 14.0 SECONDS (9.4-12.5) H 02/22/18 06:15 INR 1.21 02/22/18 06:15 APTT 28.1 Seconds (25.1-36.5) 02/22/18 06:15 Attending/Attestation - Attestation I have personally seen and examined this patient.: Yes I have fully participated in the care of the patient.: Yes I have reviewed all pertinent clinical information, including history, physical exam and plan: Yes Notes (Text): 02/24/18 16:33 Attending note; Patient seen and examined with resident. Patient is complaining of left hip pain. s/p L hip open debridement and washout. Patient is a 47-year-old male with PMH of poly-substance abuse, IVDA, Hepatitis c, sciatica, history of MRSA bacteremia is admitted with Left hip pain. 1. Left hip septic arthritis / possible osteomyelitis of sacroiliac joint. Abdomen and pelvis CT showed multiloculated abscess from L hip synovium to L iliac muscle, suggestive of disseminated L iliac osteomyelitis/L sacroiliac septic arthritis. Status post left hip open debridement and washout.drain in place. Serosanguineous discharge present. ID evaluation appreciated. We will continue vancomycin and Zosyn. 2. Anemia; chronic. status post 3 units PRBC transfusion. Hemoglobin is 8.7. No active bleeding noted. 3. History of chronic hep C. untreated. HIV is negative. 4. IV drug abuse. Complete drug abuse cessation is strongly recommended. Urine drug screen is positive for cocaine and opiates. Pain management with IV morphine and methadone. 5. History of alcohol abuse; monitor with [facility] protocol. IV Ativan when necessary ordered. PT evaluation appreciated. Case discussed with correctional case records supervisor in detail. Repeat CT hip reviewed with intervention radiology. No need for further debridement at this point. need repeat CT in 1 week. The diagnosis, treatment option explained to the patient in detail. Patient will be referred to [facility] [place] clinic upon discharge. 02/24/18 16:33
--- NOTE | 2018-02-24 15:23 | CP.PCM.PN ---
Subjective - Date & Time of Evaluation Date of Evaluation: 02/24/18 Time of Evaluation: 13:45 - Subjective Subjective: Infectious Disease Follow Up: February 24, 2018 47 yo male with PMHx of Hepatitis C, MRSA bacteremia history. The patient complains of pain in the back, buttocks, and left groin. He told the ER that it started 3 days ago. He states now that it has been over a week now. The patient has had chronic back pain and sciatic pain from at least 4 months. He is uncooperative with the interview and exam. Known history of Heroin use. CT scan showed large groin abscess invading into the left hip joint measuring [id number] invading into the left hip. questionable osteomyelitis sacral and sacroiliac joint. Taken for I&D by Orthopedics. Unfortunately, the entire collection could not be drained due to difficulty in reaching certain central areas. Restarted antibiotics. Cultures from the OR can be negative as antibiotics were given on admission. As of now, cultures have been negative. Objective - Vital Signs/Intake and Output Vital Signs (last 24 hours): Temp Pulse Resp BP Pulse Ox 98.5 F 62 18 128/80 98 02/24/18 06:00 02/24/18 06:00 02/24/18 06:00 02/24/18 06:00 02/24/18 06:00 Intake and Output: 02/24/18 02/24/18 06:59 18:59 Intake Total 540 Output Total 580 Balance -40 - Medications Medications: Current Medications Acetaminophen (Tylenol 325mg Tab) 650 mg PO Q6 PRN PRN Reason: Pain, Mild (1-3) Last Admin: 02/23/18 03:21 Dose: 650 mg Al Hydrox/Mg Hydrox/Simethicone (Maalox Plus 30 Ml) 30 ml PO DAILY PRN PRN Reason: Indigestion / Heartburn Last Admin: 02/24/18 10:23 Dose: 30 ml Docusate Sodium (Colace) 100 mg PO TID [facility] Last Admin: 02/24/18 14:49 Dose: 100 mg Enoxaparin Sodium (Lovenox) 40 mg SC DAILY [facility]; Protocol Last Admin: 02/24/18 09:20 Dose: 40 mg Ferrous Sulfate (Feosol) 324 mg PO TID [facility] Last Admin: 02/24/18 14:49 Dose: 324 mg Folic Acid (Folic Acid) 1 mg PO DAILY [facility] Last Admin: 02/24/18 09:22 Dose: 1 mg Vancomycin HCl (Vancomycin 1gm) 1 gm in 250 mls @ 167 mls/hr IVPB Q12H [facility]; Protocol Last Admin: 02/24/18 09:23 Dose: 167 mls/hr Ibuprofen (Motrin Tab) 600 mg PO Q6 PRN PRN Reason: Fever >100.4 F Last Admin: 02/22/18 01:30 Dose: 600 mg Lorazepam (Ativan) 2 mg IVP Q4H PRN; Protocol PRN Reason: Symptoms of alcohol withdrawl Last Admin: 02/21/18 10:17 Dose: 2 mg Methadone HCl (Methadone) 10 mg PO Q6 PRN PRN Reason: Pain, severe (8-10) Last Admin: 02/24/18 01:58 Dose: 10 mg Morphine Sulfate (Morphine) 2 mg IVP Q4 PRN PRN Reason: Pain, severe (8-10) Last Admin: 02/22/18 22:48 Dose: 2 mg Mupirocin (Bactroban Ointment) 0 gm NS BID [facility] Ondansetron HCl (Zofran Inj) 4 mg IVP Q6 PRN PRN Reason: Nausea/Vomiting Last Admin: 02/22/18 22:49 Dose: 4 mg Pantoprazole Sodium (Protonix Inj) 40 mg IVP DAILY [facility] Last Admin: 02/24/18 09:22 Dose: 40 mg Simethicone (Mylicon Chew Tab) 80 mg PO [facility] PRN PRN Reason: GI distress Last Admin: 02/24/18 14:49 Dose: 80 mg - Labs Labs: 02/24/18 06:20 02/24/18 06:20 PT 14.0 SECONDS (9.4-12.5) H 02/22/18 06:15 INR 1.21 02/22/18 06:15 APTT 28.1 Seconds (25.1-36.5) 02/22/18 06:15 - Constitutional Appears: Non-toxic, No Acute Distress, Chronically Ill - Head Exam Head Exam: ATRAUMATIC, NORMOCEPHALIC - Eye Exam Eye Exam: PERRL Pupil Exam: NORMAL ACCOMODATION, PERRL - ENT Exam ENT Exam: Mucous Membranes Moist, Normal External Ear Exam, TM's Normal Bilaterally - Neck Exam Neck Exam: Full ROM, Normal Inspection - Respiratory Exam Respiratory Exam: Clear to Ausculation Bilateral, NORMAL BREATHING PATTERN. absent: Rales, Rhonchi, Wheezes - Cardiovascular Exam Cardiovascular Exam: REGULAR RHYTHM, RRR, +S1, +S2 - GI/Abdominal Exam GI & Abdominal Exam: Soft, Normal Bowel Sounds. absent: Distended, Tenderness - Extremities Exam Additional comments: left lower leg swelling. Decrease ROM of the right hip. Left hip I&D. - Neurological Exam Neurological Exam: Alert, Awake, CN II-XII Intact, Oriented x3 - Psychiatric Exam Psychiatric exam: Normal Affect, Normal Mood - Skin Skin Exam: Intact, Normal Color Assessment and Plan - Assessment and Plan (Free Text) Assessment: 47 yo male with worsening left groin pain and swelling. The patient was found on CT of the abdomen and pelvis to have: "Extensive erosive lytic changes of the left femoral head and the corresponding ax packed of the left acetabulum with associated large joint effusion and periosteal new bone formation. Secondary joint effusion with multiloculated abscess measuring 13.7 x 11.2 x 9.1 centimeters in craniocaudad, AP and transverse dimensions. This arises from the left hip joint synovium extending into the surrounding left iliacus muscle and adjacent periarticular muscles/soft tissues. Associated heterogeneous lytic changes of the left iliac bone extending into the left sacroiliac joint and the corresponding aspect of the left sacral ala. 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 Noted started on Zosyn and Vancomycin IV. Given that the patient is having surgeric intervention, stop IV antibiotics until after the procedure and cultures have been taken. Restarted Zosyn and IV Vancomycin antibiotic regimen. Supportive care. Taken to OR for I&D of the left hip. Incomplete I&D due to difficulties in reaching portions of the collection. Cultures taken from the OR can be negative as the patient was on Zosyn and Vancomcyin on admission. May need to consider use of Dalvance IV and Cipro orally for treatment of osteomyelitis. Thank you for allowing me to participate in the care of the patient, we will follow with you.
[2018-02-24] MEDS: Piperacillin/Tazobact 3.375 gm 100 ML IVPB SCH ×2 (16:56→21:08)
[2018-02-24] MEDS: Morphine 2 mg/ml ISec IVP PRN (17:10)
[2018-02-25] MEDS: Morphine 2 mg/ml ISec IVP PRN ×3 (00:38→18:32)
[2018-02-25] MEDS: Pantoprazole 40 mg EC Tab PO SCH (06:46)
[2018-02-25] MEDS: Piperacillin/Tazobact 3.375 gm 100 ML IVPB SCH ×3 (06:46→21:39)
[2018-02-25 07:09] LABS: BASO # 0.02 K/mm3 (0.0-2.0); BASO % 0.2 % (0.0-3.0); EOS # 0.3 (0.0-0.7); EOS % 2.6 % (1.5-5.0); GRAN # 6.56 (1.4-6.5); GRAN % 66.3 % (50.0-68.0); LYMPH # 2.3 (1.2-3.4); LYMPH % 23.5 % (22.0-35.0); MEAN CELL VOLUME 74.8 fl (80.0-105.0); MEAN CORPUSCULAR HEMOGLOBIN 23.5 pg (25.0-35.0); MEAN CORPUSCULAR HGB CONC 31.4 g/dl (31.0-37.0); MEAN PLATELET VOLUME 8.1 fl (7.0-11.0); MONO # 0.7 (0.1-0.6); MONO % 7.4 % (1.0-6.0); RBC 3.41 10^6/uL (3.5-6.1); RED CELL DISTRIBUTION WIDTH 18.5 % (11.5-14.5); WHITE BLOOD COUNT 9.9 10^3/uL (4.5-11.0)
[2018-02-25 07:20] LABS: ALB/GLOB RATIO 0.6 (1.1-1.8); ALBUMIN 2.6 g/dL (3.0-4.8); ALT/SGPT 23 U/L (7-56); AST/SGOT 37 U/L (17-59); BLOOD UREA NITROGEN 6 mg/dL (7-21); CALCIUM 8.2 mg/dL (8.4-10.5); GFR NON-AFRICAN AMERICAN > 60
--- NOTE | 2018-02-25 07:42 | CP.PCM.PN ---
<April Hubbard - Last Filed: 02/25/18 15:45> Subjective - Date & Time of Evaluation Date of Evaluation: 02/25/18 Time of Evaluation: 07:40 - Subjective Subjective: HISTORY & PHYSICAL NOTE FOR DR. AMPARO Hubbard PGY1 Pt seen and examined at bedside this am. No acute nursing events. He continues to report abdominal pain controlled with current pain regimen. He is tolerating his diet well. 12 point ROS is otherwise negative. Objective - Vital Signs/Intake and Output Vital Signs (last 24 hours): Temp Pulse Resp BP Pulse Ox 99.3 F 78 18 122/85 98 02/24/18 21:41 02/24/18 21:41 02/24/18 21:41 02/24/18 21:41 02/24/18 21:41 Intake and Output: 02/25/18 02/25/18 06:59 18:59 Intake Total 1040 Output Total 1600 Balance -560 - Medications Medications: Current Medications Acetaminophen (Tylenol 325mg Tab) 650 mg PO Q6 PRN PRN Reason: Pain, Mild (1-3) Last Admin: 02/23/18 03:21 Dose: 650 mg Al Hydrox/Mg Hydrox/Simethicone (Maalox Plus 30 Ml) 30 ml PO DAILY PRN PRN Reason: Indigestion / Heartburn Last Admin: 02/24/18 10:23 Dose: 30 ml Docusate Sodium (Colace) 100 mg PO TID [facility] Last Admin: 02/24/18 17:09 Dose: 100 mg Enoxaparin Sodium (Lovenox) 40 mg SC DAILY [facility]; Protocol Last Admin: 02/24/18 09:20 Dose: 40 mg Ferrous Sulfate (Feosol) 324 mg PO TID [facility] Last Admin: 02/24/18 17:10 Dose: 324 mg Folic Acid (Folic Acid) 1 mg PO DAILY [facility] Last Admin: 02/24/18 09:22 Dose: 1 mg Vancomycin HCl (Vancomycin 1gm) 1 gm in 250 mls @ 167 mls/hr IVPB Q12H [facility]; Protocol Last Admin: 02/24/18 21:08 Dose: 167 mls/hr Piperacillin Sod/Tazobactam Sod (Zosyn 3.375 In Ns 100ml) 100 mls @ 25 mls/hr IVPB Q8 [facility]; Protocol Stop: 02/27/18 01:59 Last Admin: 02/25/18 06:46 Dose: 25 mls/hr Ibuprofen (Motrin Tab) 600 mg PO Q6 PRN PRN Reason: Fever >100.4 F Last Admin: 02/22/18 01:30 Dose: 600 mg Lorazepam (Ativan) 2 mg IVP Q4H PRN; Protocol PRN Reason: Symptoms of alcohol withdrawl Last Admin: 02/21/18 10:17 Dose: 2 mg Methadone HCl (Methadone) 10 mg PO Q6 PRN PRN Reason: Pain, severe (8-10) Last Admin: 02/25/18 01:48 Dose: 10 mg Morphine Sulfate (Morphine) 2 mg IVP Q4 PRN PRN Reason: Pain, severe (8-10) Last Admin: 02/25/18 00:38 Dose: 2 mg Mupirocin (Bactroban Ointment) 0 gm NS BID [facility] Last Admin: 02/24/18 17:09 Dose: 2 % Ondansetron HCl (Zofran Inj) 4 mg IVP Q6 PRN PRN Reason: Nausea/Vomiting Last Admin: 02/22/18 22:49 Dose: 4 mg Pantoprazole Sodium (Protonix Ec Tab) 40 mg PO ACB [facility] Last Admin: 02/25/18 06:46 Dose: 40 mg Simethicone (Mylicon Chew Tab) 80 mg PO PCHS PRN PRN Reason: GI distress Last Admin: 02/24/18 14:49 Dose: 80 mg - Labs Labs: 02/25/18 06:30 02/25/18 06:30 PT 14.0 SECONDS (9.4-12.5) H 02/22/18 06:15 INR 1.21 02/22/18 06:15 APTT 28.1 Seconds (25.1-36.5) 02/22/18 06:15 - Additional Findings Additional findings: - Constitutional Appears: Well, Non-toxic, No Acute Distress - Head Exam Head Exam: NORMAL INSPECTION, NORMOCEPHALIC - Eye Exam Eye Exam: EOMI, Normal appearance - ENT Exam ENT Exam: Mucous Membranes Moist - Neck Exam Neck Exam: Normal Inspection - Respiratory Exam Respiratory Exam: Clear to Ausculation Bilateral, NORMAL BREATHING PATTERN - Cardiovascular Exam Cardiovascular Exam: REGULAR RHYTHM, +S1, +S2 - GI/Abdominal Exam Additional comments: [id number] hard abscess noted in L groin region. Very tender to palpation - Extremities Exam Additional comments: Dressing in place along L hip - Back Exam Back Exam: NORMAL INSPECTION - Neurological Exam Neurological Exam: Alert, Awake, Oriented x3 - Psychiatric Exam Psychiatric exam: Normal Affect, Normal Mood - Skin Skin Exam: Dry, Intact, Warm Assessment and Plan - Assessment and Plan (Free Text) Assessment: 47yo M w PMH of poly-substance abuse, sciatica, Hep C who presents to the ED with L hip pain, admitted for further evaluation and treatment of L hip/ L groin abscess. Pt is s/p I&D L hip (02/22/18) Plan: L hip/L groin abscess Pt afebrile, leukocytosis resolving POD s/p I&D L hip. Multiple loculation and abscesses removed. Per ortho, there is still a pelvic mass in the medial region that wasn't able to be removed Per IR, no plans for further intervention Wound culture growing MRSA Continue vanc/zosyn. F/u cultures for further abx based on cultures. Will discuss future long-term antibiotics. Pt has a known hx of IV drug abuse continue methadone for pain control tylenol 650mg PO q6h PRN mild pain, percocet 1tab PO q4h PRN mod pain, morphine 4mg IV q4h PRN severe pain warm compresses q2h, as per Gen Sx ID consulted, Dr. Olmstead - f/u recs PT/OT regular diet MRSA + nares mupirocin bid x 5 days Microcytic Anemia h/h stable s/p 1 u pRBC IV Polysubstance Abuse UDS + for cocaine and opiates Pt admitted to heroin and cocaine use [facility] protocol. methadone started for opioid withdrawal seizure precautions fall precautions ativan 2mg IV q4h PRN zofran 4mg IV q6h PRN counseled on cessation PPx DVT: lovenox GI: Protonix IVP Dispo: wound growing MRSA. Pt will require long-term antibiotics Case seen, examined and discussed with attending physician, Dr. Mata <Rachel Mata - Last Filed: 02/25/18 17:37> Objective - Vital Signs/Intake and Output Vital Signs (last 24 hours): Temp Pulse Resp BP Pulse Ox 98.4 F 84 20 129/72 99 02/25/18 14:00 02/25/18 14:00 02/25/18 14:00 02/25/18 14:00 02/25/18 14:00 Intake and Output: 02/25/18 02/25/18 06:59 18:59 Intake Total 1040 Output Total 1600 Balance -560 - Medications Medications: Current Medications Acetaminophen (Tylenol 325mg Tab) 650 mg PO Q6 PRN PRN Reason: Pain, Mild (1-3) Last Admin: 02/23/18 03:21 Dose: 650 mg Al Hydrox/Mg Hydrox/Simethicone (Maalox Plus 30 Ml) 30 ml PO DAILY PRN PRN Reason: Indigestion / Heartburn Last Admin: 02/24/18 10:23 Dose: 30 ml Docusate Sodium (Colace) 100 mg PO TID [facility] Last Admin: 02/25/18 14:12 Dose: 100 mg Enoxaparin Sodium (Lovenox) 40 mg SC DAILY [facility]; Protocol Last Admin: 02/25/18 10:18 Dose: 40 mg Ferrous Sulfate (Feosol) 324 mg PO TID [facility] Last Admin: 02/25/18 14:12 Dose: 324 mg Folic Acid (Folic Acid) 1 mg PO DAILY [facility] Last Admin: 02/25/18 10:19 Dose: 1 mg Vancomycin HCl (Vancomycin 1gm) 1 gm in 250 mls @ 167 mls/hr IVPB Q12H [facility]; Protocol Last Admin: 02/25/18 08:34 Dose: 167 mls/hr Piperacillin Sod/Tazobactam Sod (Zosyn 3.375 In Ns 100ml) 100 mls @ 25 mls/hr IVPB Q8 [facility]; Protocol Stop: 02/27/18 01:59 Last Admin: 02/25/18 14:11 Dose: 25 mls/hr Ibuprofen (Motrin Tab) 600 mg PO Q6 PRN PRN Reason: Fever >100.4 F Last Admin: 02/22/18 01:30 Dose: 600 mg Lorazepam (Ativan) 2 mg IVP Q4H PRN; Protocol PRN Reason: Symptoms of alcohol withdrawl Last Admin: 02/21/18 10:17 Dose: 2 mg Methadone HCl (Methadone) 10 mg PO Q6 PRN PRN Reason: Pain, severe (8-10) Last Admin: 02/25/18 14:12 Dose: 10 mg Morphine Sulfate (Morphine) 2 mg IVP Q4 PRN PRN Reason: Pain, severe (8-10) Last Admin: 02/25/18 10:18 Dose: 2 mg Mupirocin (Bactroban Ointment) 0 gm NS BID [facility] Last Admin: 02/24/18 17:09 Dose: 2 % Ondansetron HCl (Zofran Inj) 4 mg IVP Q6 PRN PRN Reason: Nausea/Vomiting Last Admin: 02/22/18 22:49 Dose: 4 mg Pantoprazole Sodium (Protonix Ec Tab) 40 mg PO ACB [facility] Last Admin: 02/25/18 06:46 Dose: 40 mg Simethicone (Mylicon Chew Tab) 80 mg PO P[facility] PRN PRN Reason: GI distress Last Admin: 02/24/18 14:49 Dose: 80 mg - Labs Labs: 02/25/18 06:30 02/25/18 06:30 PT 14.0 SECONDS (9.4-12.5) H 02/22/18 06:15 INR 1.21 02/22/18 06:15 APTT 28.1 Seconds (25.1-36.5) 02/22/18 06:15 Attending/Attestation - Attestation I have personally seen and examined this patient.: Yes I have fully participated in the care of the patient.: Yes I have reviewed all pertinent clinical information, including history, physical exam and plan: Yes Notes (Text): 02/25/18 17:35 Attending note; Patient seen and examined with resident. Patient is complaining of left hip pain. s/p L hip open debridement and washout. drain removed yesterday by orthopedics. Patient is a 47-year-old male with PMH of poly-substance abuse, IVDA, Hepatitis c, sciatica, history of MRSA bacteremia is admitted with Left hip pain. 1. Left hip septic arthritis / osteomyelitis of sacroiliac joint. Abdomen and pelvis CT showed multiloculated abscess from L hip synovium to L iliac muscle, suggestive of disseminated L iliac osteomyelitis/L sacroiliac septic arthritis. Status post left hip open debridement and washout.drain removed. ID evaluation appreciated. We will continue vancomycin and Zosyn. Culture is pending. 2. Anemia; chronic. status post 3 units PRBC transfusion. Hemoglobin is 8.0. No active bleeding noted. 3. History of chronic hep C. untreated. HIV is negative. 4. IV drug abuse. Complete drug abuse cessation is strongly recommended. Urine drug screen is positive for cocaine and opiates. Pain management with IV morphine and methadone. 5. History of alcohol abuse; monitor with [facility] protocol. IV Ativan when necessary ordered. advised to participate in PT. Case discussed with rn case manager hospice in detail. The diagnosis, treatment option explained to the patient in detail. Patient will be referred to [facility] clinic upon discharge.
[2018-02-25] MEDS: Vancomycin 1gm in NS 250ml 1 GM/250 ML BAG IVPB SCH ×2 (08:34→20:15)
[2018-02-25] MEDS: Mupirocin 2% Ointment 15 GM TUBE NS SCH ×2 (10:11→18:16)
[2018-02-25] MEDS: Enoxaparin 40 mg Syringe SC SCH (10:18)
--- NOTE | 2018-02-25 14:58 | CP.PCM.PN ---
Subjective - Date & Time of Evaluation Date of Evaluation: 02/25/18 Time of Evaluation: 14:00 - Subjective Subjective: Infectious Disease Follow Up: February 25, 2018 47 yo male with PMHx of Hepatitis C, MRSA bacteremia history. The patient complains of pain in the back, buttocks, and left groin. He told the ER that it started 3 days ago. He states now that it has been over a week now. The patient has had chronic back pain and sciatic pain from at least 4 months. He is uncooperative with the interview and exam. Known history of Heroin use. CT scan showed large groin abscess invading into the left hip joint measuring [id number] invading into the left hip. questionable osteomyelitis sacral and sacroiliac joint. Taken for I&D by Orthopedics. Unfortunately, the entire collection could not be drained due to difficulty in reaching certain central areas. Restarted antibiotics. Cultures from the OR can be negative as antibiotics were given on admission. As of now, one culture showing MRSA. Objective - Vital Signs/Intake and Output Vital Signs (last 24 hours): Temp Pulse Resp BP Pulse Ox 98 F 72 20 114/72 99 02/25/18 06:00 02/25/18 06:00 02/25/18 06:00 02/25/18 06:00 02/25/18 06:00 Intake and Output: 02/25/18 02/25/18 06:59 18:59 Intake Total 1040 Output Total 1600 Balance -560 - Medications Medications: Current Medications Acetaminophen (Tylenol 325mg Tab) 650 mg PO Q6 PRN PRN Reason: Pain, Mild (1-3) Last Admin: 02/23/18 03:21 Dose: 650 mg Al Hydrox/Mg Hydrox/Simethicone (Maalox Plus 30 Ml) 30 ml PO DAILY PRN PRN Reason: Indigestion / Heartburn Last Admin: 02/24/18 10:23 Dose: 30 ml Docusate Sodium (Colace) 100 mg PO TID [facility] Last Admin: 02/25/18 14:12 Dose: 100 mg Enoxaparin Sodium (Lovenox) 40 mg SC DAILY [facility]; Protocol Last Admin: 02/25/18 10:18 Dose: 40 mg Ferrous Sulfate (Feosol) 324 mg PO TID [facility] Last Admin: 02/25/18 14:12 Dose: 324 mg Folic Acid (Folic Acid) 1 mg PO DAILY [facility] Last Admin: 02/25/18 10:19 Dose: 1 mg Vancomycin HCl (Vancomycin 1gm) 1 gm in 250 mls @ 167 mls/hr IVPB Q12H [facility]; Protocol Last Admin: 02/25/18 08:34 Dose: 167 mls/hr Piperacillin Sod/Tazobactam Sod (Zosyn 3.375 In Ns 100ml) 100 mls @ 25 mls/hr IVPB Q8 [facility]; Protocol Stop: 02/27/18 01:59 Last Admin: 02/25/18 14:11 Dose: 25 mls/hr Ibuprofen (Motrin Tab) 600 mg PO Q6 PRN PRN Reason: Fever >100.4 F Last Admin: 02/22/18 01:30 Dose: 600 mg Lorazepam (Ativan) 2 mg IVP Q4H PRN; Protocol PRN Reason: Symptoms of alcohol withdrawl Last Admin: 02/21/18 10:17 Dose: 2 mg Methadone HCl (Methadone) 10 mg PO Q6 PRN PRN Reason: Pain, severe (8-10) Last Admin: 02/25/18 14:12 Dose: 10 mg Morphine Sulfate (Morphine) 2 mg IVP Q4 PRN PRN Reason: Pain, severe (8-10) Last Admin: 02/25/18 10:18 Dose: 2 mg Mupirocin (Bactroban Ointment) 0 gm NS BID [facility] Last Admin: 02/24/18 17:09 Dose: 2 % Ondansetron HCl (Zofran Inj) 4 mg IVP Q6 PRN PRN Reason: Nausea/Vomiting Last Admin: 02/22/18 22:49 Dose: 4 mg Pantoprazole Sodium (Protonix Ec Tab) 40 mg PO ACB [facility] Last Admin: 02/25/18 06:46 Dose: 40 mg Simethicone (Mylicon Chew Tab) 80 mg PO [facility] PRN PRN Reason: GI distress Last Admin: 02/24/18 14:49 Dose: 80 mg - Labs Labs: 02/25/18 06:30 02/25/18 06:30 PT 14.0 SECONDS (9.4-12.5) H 02/22/18 06:15 INR 1.21 02/22/18 06:15 APTT 28.1 Seconds (25.1-36.5) 02/22/18 06:15 - Constitutional Appears: Non-toxic, No Acute Distress, Chronically Ill - Head Exam Head Exam: ATRAUMATIC, NORMOCEPHALIC - Eye Exam Eye Exam: EOMI, PERRL Pupil Exam: NORMAL ACCOMODATION, PERRL - ENT Exam ENT Exam: Mucous Membranes Moist, Normal External Ear Exam, TM's Normal Bilaterally - Neck Exam Neck Exam: Full ROM, Normal Inspection - Respiratory Exam Respiratory Exam: Clear to Ausculation Bilateral, NORMAL BREATHING PATTERN. absent: Rales, Rhonchi, Wheezes - Cardiovascular Exam Cardiovascular Exam: REGULAR RHYTHM, RRR, +S1, +S2 - GI/Abdominal Exam GI & Abdominal Exam: Soft, Normal Bowel Sounds. absent: Distended, Tenderness - Extremities Exam Additional comments: left lower leg swelling. Decrease ROM of the right hip. Left hip I&D. - Neurological Exam Neurological Exam: Alert, Awake, CN II-XII Intact, Oriented x3 - Psychiatric Exam Psychiatric exam: Normal Affect, Normal Mood - Skin Skin Exam: Intact, Normal Color Assessment and Plan - Assessment and Plan (Free Text) Assessment: 47 yo male with worsening left groin pain and swelling. The patient was found on CT of the abdomen and pelvis to have: "Extensive erosive lytic changes of the left femoral head and the corresponding ax packed of the left acetabulum with associated large joint effusion and periosteal new bone formation. Secondary joint effusion with multiloculated abscess measuring 13.7 x 11.2 x 9.1 centimeters in craniocaudad, AP and transverse dimensions. This arises from the left hip joint synovium extending into the surrounding left iliacus muscle and adjacent periarticular muscles/soft tissues. Associated heterogeneous lytic changes of the left iliac bone extending into the left sacroiliac joint and the corresponding aspect of the left sacral ala. 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 Noted started on Zosyn and Vancomycin IV. Given that the patient is having surgeric intervention, stop IV antibiotics until after the pr ocedure and cultures have been taken. Restarted Zosyn and IV Vancomycin antibiotic regimen. Supportive care. Taken to OR for I&D of the left hip. Incomplete I&D due to difficulties in reaching portions of the collection. Cultures taken from the OR can be negative as the patient was on Zosyn and Vancomcyin on admission. Use of Dalvance IV and Cipro orally for treatment of osteomyelitis. Dalvance 1500mg IV weekly for 2 weeks and Cipro 500mg BID for 6 weeks. Thank you for allowing me to participate in the care of the patient, we will follow with you.
[2018-02-26] MEDS: Morphine 2 mg/ml ISec IVP PRN ×3 (00:08→21:28)
[2018-02-26] MEDS: Piperacillin/Tazobact 3.375 gm 100 ML IVPB SCH ×3 (06:35→21:29)
[2018-02-26] MEDS: Pantoprazole 40 mg EC Tab PO SCH (06:36)
[2018-02-26] MEDS: Vancomycin 1gm in NS 250ml 1 GM/250 ML BAG IVPB SCH ×3 (06:36→21:29)
[2018-02-26 07:13] LABS: ALB/GLOB RATIO 0.7 (1.1-1.8); ALBUMIN 2.7 g/dL (3.0-4.8); ALT/SGPT 24 U/L (7-56); AST/SGOT 40 U/L (17-59); BLOOD UREA NITROGEN 9 mg/dL (7-21); CALCIUM 8.4 mg/dL (8.4-10.5); GFR NON-AFRICAN AMERICAN > 60
[2018-02-26 07:57] LABS: WHITE BLOOD COUNT 8.9 10^3/uL (4.5-11.0)
[2018-02-26 07:58] LABS: BASO # 0.01 K/mm3 (0.0-2.0); BASO % 0.1 % (0.0-3.0); EOS # 0.3 (0.0-0.7); EOS % 3.3 % (1.5-5.0); GRAN # 5.02 (1.4-6.5); GRAN % 56.7 % (50.0-68.0); HEMOGLOBIN 7.7 g/dL (14.0-18.0); LYMPH # 2.9 (1.2-3.4); LYMPH % 32.6 % (22.0-35.0); MEAN CELL VOLUME 76.9 fl (80.0-105.0); MEAN CORPUSCULAR HEMOGLOBIN 24.1 pg (25.0-35.0); MEAN CORPUSCULAR HGB CONC 31.3 g/dl (31.0-37.0); MEAN PLATELET VOLUME 8.7 fl (7.0-11.0); MONO # 0.7 (0.1-0.6); MONO % 7.3 % (1.0-6.0); RBC 3.2 10^6/uL (3.5-6.1); RED CELL DISTRIBUTION WIDTH 19.3 % (11.5-14.5)
[2018-02-26] MEDS: Mupirocin 2% Ointment 15 GM TUBE NS SCH ×2 (10:03→17:14)
[2018-02-26] MEDS: Enoxaparin 40 mg Syringe SC SCH (10:07)
--- NOTE | 2018-02-26 12:21 | CP.PCM.PN ---
<Noni Howe - Last Filed: 02/26/18 12:17> Subjective - Date & Time of Evaluation Date of Evaluation: 02/26/18 Time of Evaluation: 12:17 - Subjective Subjective: PGY1 Progress Note for Dr. Mata Patient seen and examined at bedside this morning. No acute nursing events overnight. Patient still states he has pain in his left hip area. Patient without new complaints. 12 Point ROS is unremarkable. Objective - Vital Signs/Intake and Output Vital Signs (last 24 hours): Temp Pulse Resp BP Pulse Ox 98.6 F 71 20 110/73 97 02/26/18 07:00 02/26/18 07:00 02/26/18 07:00 02/26/18 07:00 02/26/18 07:00 Intake and Output: 02/26/18 02/26/18 06:59 18:59 Intake Total 1260 Output Total 3100 Balance -1840 - Medications Medications: Current Medications Acetaminophen (Tylenol 325mg Tab) 650 mg PO Q6 PRN PRN Reason: Pain, Mild (1-3) Last Admin: 02/23/18 03:21 Dose: 650 mg Al Hydrox/Mg Hydrox/Simethicone (Maalox Plus 30 Ml) 30 ml PO DAILY PRN PRN Reason: Indigestion / Heartburn Last Admin: 02/24/18 10:23 Dose: 30 ml Docusate Sodium (Colace) 100 mg PO TID [facility] Last Admin: 02/26/18 10:06 Dose: 100 mg Enoxaparin Sodium (Lovenox) 40 mg SC DAILY [facility]; Protocol Last Admin: 02/26/18 10:07 Dose: 40 mg Ferrous Sulfate (Feosol) 324 mg PO TID [facility] Last Admin: 02/26/18 10:07 Dose: 324 mg Folic Acid (Folic Acid) 1 mg PO DAILY [facility] Last Admin: 02/26/18 10:07 Dose: 1 mg Vancomycin HCl (Vancomycin 1gm) 1 gm in 250 mls @ 167 mls/hr IVPB Q12H [facility]; Protocol Last Admin: 02/26/18 07:30 Dose: Not Given Piperacillin Sod/Tazobactam Sod (Zosyn 3.375 In Ns 100ml) 100 mls @ 25 mls/hr IVPB Q8 [facility]; Protocol Stop: 02/27/18 01:59 Last Admin: 02/26/18 06:35 Dose: 25 mls/hr Ibuprofen (Motrin Tab) 600 mg PO Q6 PRN PRN Reason: Fever >100.4 F Last Admin: 02/22/18 01:30 Dose: 600 mg Lorazepam (Ativan) 2 mg IVP Q4H PRN; Protocol PRN Reason: Symptoms of alcohol withdrawl Last Admin: 02/21/18 10:17 Dose: 2 mg Methadone HCl (Methadone) 10 mg PO Q6 PRN PRN Reason: Pain, severe (8-10) Last Admin: 02/26/18 03:12 Dose: 10 mg Morphine Sulfate (Morphine) 2 mg IVP Q4 PRN PRN Reason: Pain, severe (8-10) Last Admin: 02/26/18 00:08 Dose: 2 mg Mupirocin (Bactroban Ointment) 0 gm NS BID [facility] Last Admin: 02/26/18 10:03 Dose: 1 appl Ondansetron HCl (Zofran Inj) 4 mg IVP Q6 PRN PRN Reason: Nausea/Vomiting Last Admin: 02/22/18 22:49 Dose: 4 mg Pantoprazole Sodium (Protonix Ec Tab) 40 mg PO ACB [facility] Last Admin: 02/26/18 06:36 Dose: 40 mg Simethicone (Mylicon Chew Tab) 80 mg PO PCHS PRN PRN Reason: GI distress Last Admin: 02/24/18 14:49 Dose: 80 mg - Labs Labs: 02/26/18 05:30 02/26/18 05:30 PT 14.0 SECONDS (9.4-12.5) H 02/22/18 06:15 INR 1.21 02/22/18 06:15 APTT 28.1 Seconds (25.1-36.5) 02/22/18 06:15 - Additional Findings Additional findings: - Constitutional Appears: Well, Non-toxic, No Acute Distress - Head Exam Head Exam: NORMAL INSPECTION, NORMOCEPHALIC - Eye Exam Eye Exam: EOMI, Normal appearance - ENT Exam ENT Exam: Mucous Membranes Moist - Neck Exam Neck Exam: Normal Inspection - Respiratory Exam Respiratory Exam: Clear to Ausculation Bilateral, NORMAL BREATHING PATTERN - Cardiovascular Exam Cardiovascular Exam: REGULAR RHYTHM, +S1, +S2 - GI/Abdominal Exam Additional comments: [id number] hard abscess noted in L groin region. Very tender to palpation - Extremities Exam Additional comments: Dressing in place along L hip - Back Exam Back Exam: NORMAL INSPECTION - Neurological Exam Neurological Exam: Alert, Awake, Oriented x3 - Psychiatric Exam Psychiatric exam: Normal Affect, Normal Mood - Skin Skin Exam: Dry, Intact, Warm Assessment and Plan - Assessment and Plan (Free Text) Assessment: 47yo M w PMH of poly-substance abuse, sciatica, Hep C who presents to the ED with L hip pain, admitted for further evaluation and treatment of L hip/ L groin abscess. Pt is s/p I&D L hip (02/22/18) L hip/L groin abscess - Patient afebrile, leukocytosis resolving - POD s/p I&D L hip. Multiple loculation and abscesses removed. Per ortho, there is still a pelvic mass in the medial region that wasn't able to be removed - Per IR, no plans for further intervention - Wound culture growing MRSA - Continue vanc/zosyn. F/u cultures for further abx based on cultures. Will discuss future long-term antibiotics. Pt has a known hx of IV drug - abuse - Continue methadone for pain control - Tylenol 650mg PO q6h PRN mild pain, percocet 1tab PO q4h PRN mod pain, morphine 4mg IV q4h PRN severe pain - Warm compresses q2h, as per Gen Sx - ID consulted, Dr. Olmstead - f/u recs - PT/OT - Regular diet Constipation - Likely secondary to opioid use - Lactulose started MRSA + nares - Mupirocin bid x 5 days Microcytic Anemia - h/h stable - s/p 1 u pRBC IV Polysubstance Abuse - UDS + for cocaine and opiates - Patient admitted to heroin and cocaine use - [facility] protocol. - Methadone started for opioid withdrawal - Seizure precautions - Fall precautions - Ativan 2mg IV q4h PRN - Zofran 4mg IV q6h PRN - Counseled on cessation PPx DVT: lovenox GI: Protonix IVP Dispo: wound growing MRSA. Patient will require long-term antibiotics Patient seen and case discussed in detail with Dr. Esperanza Howe PGY1 <Rachel Mata - Last Filed: 02/26/18 15:21> Objective - Vital Signs/Intake and Output Vital Signs (last 24 hours): Temp Pulse Resp BP Pulse Ox 98.6 F 71 20 110/73 97 02/26/18 07:00 02/26/18 07:00 02/26/18 07:00 02/26/18 07:00 02/26/18 07:00 Intake and Output: 02/26/18 02/26/18 06:59 18:59 Intake Total 1260 Output Total 3100 Balance -1840 - Medications Medications: Current Medications Acetaminophen (Tylenol 325mg Tab) 650 mg PO Q6 PRN PRN Reason: Pain, Mild (1-3) Last Admin: 02/23/18 03:21 Dose: 650 mg Al Hydrox/Mg Hydrox/Simethicone (Maalox Plus 30 Ml) 30 ml PO DAILY PRN PRN Reason: Indigestion / Heartburn Last Admin: 02/24/18 10:23 Dose: 30 ml Docusate Sodium (Colace) 100 mg PO TID [facility] Last Admin: 02/26/18 14:19 Dose: 100 mg Enoxaparin Sodium (Lovenox) 40 mg SC DAILY [facility]; Protocol Last Admin: 02/26/18 10:07 Dose: 40 mg Ferrous Sulfate (Feosol) 324 mg PO TID [facility] Last Admin: 02/26/18 14:18 Dose: 324 mg Folic Acid (Folic Acid) 1 mg PO DAILY [facility] Last Admin: 02/26/18 10:07 Dose: 1 mg Vancomycin HCl (Vancomycin 1gm) 1 gm in 250 mls @ 167 mls/hr IVPB Q12H [facility]; Protocol Last Admin: 02/26/18 07:30 Dose: Not Given Piperacillin Sod/Tazobactam Sod (Zosyn 3.375 In Ns 100ml) 100 mls @ 25 mls/hr IVPB Q8 [facility]; Protocol Stop: 02/27/18 01:59 Last Admin: 02/26/18 14:19 Dose: 25 mls/hr Ibuprofen (Motrin Tab) 600 mg PO Q6 PRN PRN Reason: Fever >100.4 F Last Admin: 02/22/18 01:30 Dose: 600 mg Lorazepam (Ativan) 2 mg IVP Q4H PRN; Protocol PRN Reason: Symptoms of alcohol withdrawl Last Admin: 02/21/18 10:17 Dose: 2 mg Methadone HCl (Methadone) 10 mg PO Q6 PRN PRN Reason: Pain, severe (8-10) Last Admin: 02/26/18 03:12 Dose: 10 mg Morphine Sulfate (Morphine) 2 mg IVP Q4 PRN PRN Reason: Pain, severe (8-10) Last Admin: 02/26/18 14:39 Dose: 2 mg Mupirocin (Bactroban Ointment) 0 gm NS BID [facility] Last Admin: 02/26/18 10:03 Dose: 1 appl Ondansetron HCl (Zofran Inj) 4 mg IVP Q6 PRN PRN Reason: Nausea/Vomiting Last Admin: 02/22/18 22:49 Dose: 4 mg Pantoprazole Sodium (Protonix Ec Tab) 40 mg PO ACB [facility] Last Admin: 02/26/18 06:36 Dose: 40 mg Simethicone (Mylicon Chew Tab) 80 mg PO PCHS PRN PRN Reason: GI distress Last Admin: 02/24/18 14:49 Dose: 80 mg - Labs Labs: 02/26/18 05:30 02/26/18 05:30 PT 14.0 SECONDS (9.4-12.5) H 02/22/18 06:15 INR 1.21 02/22/18 06:15 APTT 28.1 Seconds (25.1-36.5) 02/22/18 06:15 Attending/Attestation - Attestation I have personally seen and examined this patient.: Yes I have fully participated in the care of the patient.: Yes I have reviewed all pertinent clinical information, including history, physical exam and plan: Yes Notes (Text): 02/26/18 15:17 Attending note; Patient seen and examined with resident. Patient is complaining of left hip pain. did not do physical therapy yesterday. s/p L hip open debridement and washout Patient is a 47-year-old male with PMH of poly-substance abuse, IVDA, Hepatitis c, sciatica, history of MRSA bacteremia is admitted with Left hip pain. 1. Left hip septic arthritis / MRSA wound and osteomyelitis of femoral head. Abdomen and pelvis CT showed multiloculated abscess from L hip synovium to L i liac muscle, suggestive of disseminated L iliac osteomyelitis/L sacroiliac septic arthritis. Status post left hip open debridement and washout.drain removed. ID evaluation appreciated. We will continue vancomycin and Zosyn. Cultures positive for MRSA. We will arrange for dalvance x 2 doses and po ciprofloxacin for 6 weeks. 2. Anemia; chronic. status post 3 units PRBC transfusion. Hemoglobin is 7.7. No active bleeding noted. monitor closely. 3. History of chronic hep C. untreated. HIV is negative. 4. IV drug abuse. Complete drug abuse cessation is strongly recommended. Urine drug screen is positive for cocaine and opiates. Pain management with IV morphine and methadone. 5. History of alcohol abuse; not in withdrawal. advised to participate in PT. needs aggressive PT. The diagnosis, treatment option explained to the patient in detail. Patient will be referred to [facility] [place] upon discharge. 02/26/18 15:19 02/26/18 15:20
--- NOTE | 2018-02-26 17:41 | CP.PCM.PN ---
Subjective - Date & Time of Evaluation Date of Evaluation: 02/26/18 Time of Evaluation: 15:30 - Subjective Subjective: Infectious Disease Follow Up: February 26, 2018 47 yo male with PMHx of Hepatitis C, MRSA bacteremia history. The patient complains of pain in the back, buttocks, and left groin. He told the ER that it started 3 days ago. He states now that it has been over a week now. The patient has had chronic back pain and sciatic pain from at least 4 months. He is uncooperative with the interview and exam. Known history of Heroin use. CT scan showed large groin abscess invading into the left hip joint measuring [id number] invading into the left hip. questionable osteomyelitis sacral and sacroiliac joint. Taken for I&D by Orthopedics. Unfortunately, the entire collection could not be drained due to difficulty in reaching certain central areas. Restarted antibiotics. Cultures from the OR can be negative as antibiotics were given on admission. As of now, one culture showing MRSA. He still complains of mild-mod hip pain. Objective - Vital Signs/Intake and Output Vital Signs (last 24 hours): Temp Pulse Resp BP Pulse Ox 98.6 F 71 20 110/73 97 02/26/18 07:00 02/26/18 07:00 02/26/18 07:00 02/26/18 07:00 02/26/18 07:00 Intake and Output: 02/26/18 02/26/18 06:59 18:59 Intake Total 1260 Output Total 3100 Balance -1840 - Medications Medications: Current Medications Acetaminophen (Tylenol 325mg Tab) 650 mg PO Q6 PRN PRN Reason: Pain, Mild (1-3) Last Admin: 02/23/18 03:21 Dose: 650 mg Al Hydrox/Mg Hydrox/Simethicone (Maalox Plus 30 Ml) 30 ml PO DAILY PRN PRN Reason: Indigestion / Heartburn Last Admin: 02/24/18 10:23 Dose: 30 ml Docusate Sodium (Colace) 100 mg PO TID [facility] Last Admin: 02/26/18 17:14 Dose: 100 mg Enoxaparin Sodium (Lovenox) 40 mg SC DAILY [facility]; Protocol Last Admin: 02/26/18 10:07 Dose: 40 mg Ferrous Sulfate (Feosol) 324 mg PO TID [facility] Last Admin: 02/26/18 17:15 Dose: 324 mg Folic Acid (Folic Acid) 1 mg PO DAILY [facility] Last Admin: 02/26/18 10:07 Dose: 1 mg Vancomycin HCl (Vancomycin 1gm) 1 gm in 250 mls @ 167 mls/hr IVPB Q12H [facility]; Protocol Last Admin: 02/26/18 07:30 Dose: Not Given Piperacillin Sod/Tazobactam Sod (Zosyn 3.375 In Ns 100ml) 100 mls @ 25 mls/hr IVPB Q8 [facility]; Protocol Stop: 02/27/18 01:59 Last Admin: 02/26/18 14:19 Dose: 25 mls/hr Ibuprofen (Motrin Tab) 600 mg PO Q6 PRN PRN Reason: Fever >100.4 F Last Admin: 02/22/18 01:30 Dose: 600 mg Lorazepam (Ativan) 2 mg IVP Q4H PRN; Protocol PRN Reason: Symptoms of alcohol withdrawl Last Admin: 02/21/18 10:17 Dose: 2 mg Methadone HCl (Methadone) 10 mg PO Q6 PRN PRN Reason: Pain, severe (8-10) Last Admin: 02/26/18 03:12 Dose: 10 mg Morphine Sulfate (Morphine) 2 mg IVP Q4 PRN PRN Reason: Pain, severe (8-10) Last Admin: 02/26/18 14:39 Dose: 2 mg Mupirocin (Bactroban Ointment) 0 gm NS BID [facility] Last Admin: 02/26/18 17:14 Dose: 1 appl Ondansetron HCl (Zofran Inj) 4 mg IVP Q6 PRN PRN Reason: Nausea/Vomiting Last Admin: 02/22/18 22:49 Dose: 4 mg Pantoprazole Sodium (Protonix Ec Tab) 40 mg PO ACB [facility] Last Admin: 02/26/18 06:36 Dose: 40 mg Simethicone (Mylicon Chew Tab) 80 mg PO PCHS PRN PRN Reason: GI distress Last Admin: 02/24/18 14:49 Dose: 80 mg - Labs Labs: 02/26/18 05:30 02/26/18 05:30 PT 14.0 SECONDS (9.4-12.5) H 02/22/18 06:15 INR 1.21 02/22/18 06:15 APTT 28.1 Seconds (25.1-36.5) 02/22/18 06:15 - Constitutional Appears: Non-toxic, No Acute Distress, Chronically Ill - Head Exam Head Exam: ATRAUMATIC, NORMOCEPHALIC - Eye Exam Eye Exam: EOMI, PERRL Pupil Exam: NORMAL ACCOMODATION, PERRL - ENT Exam ENT Exam: Mucous Membranes Moist, Normal External Ear Exam, TM's Normal Bilaterally - Neck Exam Neck Exam: Full ROM, Normal Inspection - Respiratory Exam Respiratory Exam: Clear to Ausculation Bilateral, NORMAL BREATHING PATTERN. absent: Rales, Rhonchi, Wheezes - Cardiovascular Exam Cardiovascular Exam: REGULAR RHYTHM, RRR, +S1, +S2 - GI/Abdominal Exam GI & Abdominal Exam: Soft, Normal Bowel Sounds. absent: Distended, Tenderness - Extremities Exam Additional comments: left lower leg swelling. Decrease ROM of the right hip. Left hip I&D. - Neurological Exam Neurological Exam: Alert, Awake, CN II-XII Intact, Oriented x3 - Psychiatric Exam Psychiatric exam: Normal Affect, Normal Mood - Skin Skin Exam: Intact, Normal Color Assessment and Plan - Assessment and Plan (Free Text) Assessment: 47 yo male with worsening left groin pain and swelling. The patient was found on CT of the abdomen and pelvis to have: "Extensive erosive lytic changes of the left femoral head and the corresponding ax packed of the left acetabulum with associated large joint effusion and periosteal new bone formation. Secondary joint effusion with multiloculated abscess measuring 13.7 x 11.2 x 9.1 centimeters in craniocaudad, AP and transverse dimensions. This arises from the left hip joint synovium extending into the surrounding left iliacus muscle and adjacent periarticular muscles/soft tissues. Associated heterogeneous lytic changes of the left iliac bone extending into the left sacroiliac joint and the corresponding aspect of the left sacral ala. 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 Supportive care. Taken to OR for I&D of the left hip. Incomplete I&D due to difficulties in reaching portions of the collection. Cultures taken from the OR can be negative as the patient was on Zosyn and Vancomcyin on admission. Use of Dalvance IV and Cipro orally for treatment of osteomyelitis. Dalvance 1500mg IV weekly for 2 weeks and Cipro 500mg BID for 6 weeks. Thank you for allowing me to participate in the care of the patient, we will follow with you.
[2018-02-27] MEDS: Pantoprazole 40 mg EC Tab PO SCH (06:38)
[2018-02-27] MEDS: Piperacillin/Tazobact 3.375 gm 100 ML IVPB SCH ×3 (06:38→21:18)
[2018-02-27] MEDS: Vancomycin 1gm in NS 250ml 1 GM/250 ML BAG IVPB SCH ×2 (06:54→19:21)
[2018-02-27 07:57] LABS: BLOOD UREA NITROGEN 9 mg/dL (7-21); CALCIUM 8.9 mg/dL (8.4-10.5); GFR NON-AFRICAN AMERICAN > 60
[2018-02-27 08:02] LABS: HEMOGLOBIN 8.7 g/dL (14.0-18.0); MEAN CORPUSCULAR HEMOGLOBIN 23.5 pg (25.0-35.0); MEAN CORPUSCULAR HGB CONC 30.9 g/dl (31.0-37.0); MEAN PLATELET VOLUME 8.4 fl (7.0-11.0); RBC 3.71 10^6/uL (3.5-6.1); RED CELL DISTRIBUTION WIDTH 18.7 % (11.5-14.5); WHITE BLOOD COUNT 8.7 10^3/uL (4.5-11.0)
[2018-02-27] MEDS: Mupirocin 2% Ointment 15 GM TUBE NS SCH ×2 (09:48→18:49)
[2018-02-27] MEDS: Enoxaparin 40 mg Syringe SC SCH (09:49)
[2018-02-27] MEDS: Morphine 2 mg/ml ISec IVP PRN ×3 (09:49→21:18)
--- NOTE | 2018-02-27 12:10 | CP.PCM.PN ---
<Noni Howe - Last Filed: 02/27/18 12:06> Subjective - Date & Time of Evaluation Date of Evaluation: 02/27/18 Time of Evaluation: 12:06 - Subjective Subjective: PGY1 Progress Note for Dr. Mata Patient seen and examined at bedside this morning. No acute nursing events overnight. Patient still states he has pain in his left hip area. Patient without new complaints. 12 Point ROS is unremarkable. Objective - Vital Signs/Intake and Output Vital Signs (last 24 hours): Temp Pulse Resp BP Pulse Ox 98.4 F 76 20 109/70 98 02/27/18 07:00 02/27/18 07:00 02/27/18 07:00 02/27/18 07:00 02/27/18 07:00 Intake and Output: 02/27/18 02/27/18 06:59 18:59 Intake Total 620 Output Total 700 Balance -80 - Medications Medications: Current Medications Acetaminophen (Tylenol 325mg Tab) 650 mg PO Q6 PRN PRN Reason: Pain, Mild (1-3) Last Admin: 02/23/18 03:21 Dose: 650 mg Al Hydrox/Mg Hydrox/Simethicone (Maalox Plus 30 Ml) 30 ml PO DAILY PRN PRN Reason: Indigestion / Heartburn Last Admin: 02/24/18 10:23 Dose: 30 ml Docusate Sodium (Colace) 100 mg PO TID [facility] Last Admin: 02/27/18 09:48 Dose: 100 mg Enoxaparin Sodium (Lovenox) 40 mg SC DAILY [facility]; Protocol Last Admin: 02/27/18 09:49 Dose: 40 mg Ferrous Sulfate (Feosol) 324 mg PO TID [facility] Last Admin: 02/27/18 09:48 Dose: 324 mg Folic Acid (Folic Acid) 1 mg PO DAILY [facility] Last Admin: 02/26/18 10:07 Dose: 1 mg Vancomycin HCl (Vancomycin 1gm) 1 gm in 250 mls @ 167 mls/hr IVPB Q12H [facility]; Protocol Last Admin: 02/27/18 06:54 Dose: 167 mls/hr Piperacillin Sod/Tazobactam Sod (Zosyn 3.375 In Ns 100ml) 100 mls @ 25 mls/hr IVPB Q8 [facility]; Protocol Last Admin: 12/02/18 06:38 Dose: 25 mls/hr Ibuprofen (Motrin Tab) 600 mg PO Q6 PRN PRN Reason: Fever >100.4 F Last Admin: 02/22/18 01:30 Dose: 600 mg Lorazepam (Ativan) 2 mg IVP Q4H PRN; Protocol PRN Reason: Symptoms of alcohol withdrawl Last Admin: 02/21/18 10:17 Dose: 2 mg Morphine Sulfate (Morphine) 2 mg IVP Q4 PRN PRN Reason: Pain, severe (8-10) Last Admin: 02/27/18 09:49 Dose: 2 mg Mupirocin (Bactroban Ointment) 0 gm NS BID [facility] Last Admin: 02/27/18 09:48 Dose: 1 appl Ondansetron HCl (Zofran Inj) 4 mg IVP Q6 PRN PRN Reason: Nausea/Vomiting Last Admin: 02/22/18 22:49 Dose: 4 mg Pantoprazole Sodium (Protonix Ec Tab) 40 mg PO ACB [facility] Last Admin: 02/27/18 06:38 Dose: 40 mg Simethicone (Mylicon Chew Tab) 80 mg PO [facility] PRN PRN Reason: GI distress Last Admin: 02/24/18 14:49 Dose: 80 mg - Labs Labs: 02/27/18 07:00 02/27/18 07:00 PT 14.0 SECONDS (9.4-12.5) H 02/22/18 06:15 INR 1.21 02/22/18 06:15 APTT 28.1 Seconds (25.1-36.5) 02/22/18 06:15 - Additional Findings Additional findings: - Additional Findings Additional findings: - Constitutional Appears: Well, Non-toxic, No Acute Distress - Head Exam Head Exam: NORMAL INSPECTION, NORMOCEPHALIC - Eye Exam Eye Exam: EOMI, Normal appearance - ENT Exam ENT Exam: Mucous Membranes Moist - Neck Exam Neck Exam: Normal Inspection - Respiratory Exam Respiratory Exam: Clear to Ausculation Bilateral, NORMAL BREATHING PATTERN - Cardiovascular Exam Cardiovascular Exam: REGULAR RHYTHM, +S1, +S2 - GI/Abdominal Exam Additional comments: [id number] hard abscess noted in L groin region. Very tender to palpation - Extremities Exam Additional comments: Dressing in place along L hip - Back Exam Back Exam: NORMAL INSPECTION - Neurological Exam Neurological Exam: Alert, Awake, Oriented x3 - Psychiatric Exam Psychiatric exam: Normal Affect, Normal Mood - Skin Skin Exam: Dry, Intact, Warm Assessment and Plan - Assessment and Plan (Free Text) Assessment: 47-year-old Male with PMH of poly-substance abuse, sciatica, Hep C who presents to the ED with L hip pain, admitted for further evaluation and treatment of L hip/ L groin abscess. Patient is s/p I&D L hip (02/22/18) L hip/L groin abscess - Patient afebrile, leukocytosis resolving - POD s/p I&D L hip. Multiple loculation and abscesses removed. Per ortho, there is still a pelvic mass in the medial region that wasn't able to be removed - Per IR, no plans for further intervention - Wound culture growing MRSA - Continue vanc/zosyn. F/u cultures for further abx based on cultures. Will discuss future long-term antibiotics. Pt has a known hx of IV drug - abuse - Continue methadone for pain control - Tylenol 650mg PO q6h PRN mild pain, percocet 1tab PO q4h PRN mod pain, morph ine 4mg IV q4h PRN severe pain - Warm compresses q2h, as per Gen Sx - ID consulted, Dr. Olmstead - f/u recs - PT/OT - Regular diet Constipation - Likely secondary to opioid use - Continue lactulose MRSA + nares - Mupirocin bid x 5 days Microcytic Anemia - h/h stable - s/p 1 u pRBC IV Polysubstance Abuse - UDS + for cocaine and opiates - Patient admitted to heroin and cocaine use - [facility] protocol. - Methadone started for opioid withdrawal - Seizure precautions - Fall precautions - Ativan 2mg IV q4h PRN - Zofran 4mg IV q6h PRN - Counseled on cessation PPx DVT: lovenox GI: Protonix IVP Dispo: wound growing MRSA. Patient will require long-term antibiotics Patient seen and case discussed in detail with Dr. Esperanza Howe PGY1 <Rachel Mata - Last Filed: 02/27/18 16:12> Objective - Vital Signs/Intake and Output Vital Signs (last 24 hours): Temp Pulse Resp BP Pulse Ox 98.4 F 76 20 109/70 98 02/27/18 07:00 02/27/18 07:00 02/27/18 07:00 02/27/18 07:00 02/27/18 07:00 Intake and Output: 02/27/18 02/27/18 06:59 18:59 Intake Total 620 Output Total 700 Balance -80 - Medications Medications: Current Medications Acetaminophen (Tylenol 325mg Tab) 650 mg PO Q6 PRN PRN Reason: Pain, Mild (1-3) Last Admin: 02/23/18 03:21 Dose: 650 mg Al Hydrox/Mg Hydrox/Simethicone (Maalox Plus 30 Ml) 30 ml PO DAILY PRN PRN Reason: Indigestion / Heartburn Last Admin: 02/24/18 10:23 Dose: 30 ml Docusate Sodium (Colace) 100 mg PO TID [facility] Last Admin: 02/27/18 15:01 Dose: 100 mg Enoxaparin Sodium (Lovenox) 40 mg SC DAILY [facility]; Protocol Last Admin: 02/27/18 09:49 Dose: 40 mg Ferrous Sulfate (Feosol) 324 mg PO TID [facility] Last Admin: 02/27/18 15:01 Dose: 324 mg Folic Acid (Folic Acid) 1 mg PO DAILY [facility] Last Admin: 02/27/18 10:02 Dose: 1 mg Vancomycin HCl (Vancomycin 1gm) 1 gm in 250 mls @ 167 mls/hr IVPB Q12H [facility]; Protocol Last Admin: 02/27/18 06:54 Dose: 167 mls/hr Piperacillin Sod/Tazobactam Sod (Zosyn 3.375 In Ns 100ml) 100 mls @ 25 mls/hr IVPB Q8 [facility]; Protocol Last Admin: 02/27/18 15:03 Dose: 25 mls/hr Ibuprofen (Motrin Tab) 600 mg PO Q6 PRN PRN Reason: Fever >100.4 F Last Admin: 02/22/18 01:30 Dose: 600 mg Lorazepam (Ativan) 2 mg IVP Q4H PRN; Protocol PRN Reason: Symptoms of alcohol withdrawl Last Admin: 02/21/18 10:17 Dose: 2 mg Morphine Sulfate (Morphine) 2 mg IVP Q4 PRN PRN Reason: Pain, severe (8-10) Last Admin: 02/27/18 16:00 Dose: 2 mg Mupirocin (Bactroban Ointment) 0 gm NS BID [facility] Last Admin: 02/27/18 09:48 Dose: 1 appl Ondansetron HCl (Zofran Inj) 4 mg IVP Q6 PRN PRN Reason: Nausea/Vomiting Last Admin: 02/22/18 22:49 Dose: 4 mg Pantoprazole Sodium (Protonix Ec Tab) 40 mg PO ACB [facility] Last Admin: 02/27/18 06:38 Dose: 40 mg Simethicone (Mylicon Chew Tab) 80 mg PO [facility] PRN PRN Reason: GI distress Last Admin: 02/24/18 14:49 Dose: 80 mg - Labs Labs: 02/27/18 07:00 02/27/18 07:00 PT 14.0 SECONDS (9.4-12.5) H 02/22/18 06:15 INR 1.21 02/22/18 06:15 APTT 28.1 Seconds (25.1-36.5) 02/22/18 06:15 Attending/Attestation - Attestation I have personally seen and examined this patient.: Yes I have fully participated in the care of the patient.: Yes I have reviewed all pertinent clinical information, including history, physical exam and plan: Yes Notes (Text): 02/27/18 16:10 Attending note; Patient seen and examined with resident. Patient is complaining of left hip pain. Denies any fevers, chills. Tolerating diet well. Patient is a 47-year-old male with PMH of poly-substance abuse, IVDA, Hepatitis c, sciatica, history of MRSA bacteremia is admitted with Left hip pain. 1. Left hip septic arthritis / MRSA wound and osteomyelitis of femoral head. Abdomen and pelvis CT showed multiloculated abscess from L hip synovium to L iliac muscle, suggestive of disseminated L iliac osteomyelitis/L sacroiliac septic arthritis. Status post left hip open debridement and washout. dressing intact. No bleeding noted. ID evaluation appreciated. We will continue vancomycin and Zosyn. Cultures positive for MRSA. We will arrange for dalvance x 2 doses and po ciprofloxacin for 6 weeks. 2. Anemia; chronic. status post 3 units PRBC transfusion. Hemoglobin is 8.7. No active bleeding noted. monitor closely. 3. History of chronic hep C. untreated. HIV is negative. 4. IV drug abuse. Complete drug abuse cessation is strongly recommended. Urine drug screen is positive for cocaine and opiates. Pain management with IV morphine and methadone. 5. History of alcohol abuse; not in withdrawal. advised to participate in PT. needs aggressive PT. Will follow-up with case maker and 7th grade social studies teacher for discharge planning. The diagnosis, treatment option explained to the patient in detail. Patient will be referred to [facility] clinic upon discharge. 02/27/18 16:11 02/27/18 16:12
--- NOTE | 2018-02-27 18:00 | CP.PCM.PN ---
Subjective - Date & Time of Evaluation Date of Evaluation: 02/27/18 Time of Evaluation: 15:45 - Subjective Subjective: Infectious Disease Follow Up: February 27, 2018 47 yo male with PMHx of Hepatitis C, MRSA bacteremia history. The patient complains of pain in the back, buttocks, and left groin. He told the ER that it started 3 days ago. He states now that it has been over a week now. The patient has had chronic back pain and sciatic pain from at least 4 months. He is uncooperative with the interview and exam. Known history of Heroin use. CT scan showed large groin abscess invading into the left hip joint measuring [id number] invading into the left hip. questionable osteomyelitis sacral and sacroiliac joint. Taken for I&D by Orthopedics. Unfortunately, the entire collection could not be drained due to difficulty in reaching certain central areas. Restarted antibiotics. Cultures from the OR can be negative as antibiotics were given on admission. As of now, one culture showing MRSA. He still complains of mild-mod hip pain. He is not getting out of bed. Objective - Vital Signs/Intake and Output Vital Signs (last 24 hours): Temp Pulse Resp BP Pulse Ox 98.4 F 76 20 109/70 98 02/27/18 07:00 02/27/18 07:00 02/27/18 07:00 02/27/18 07:00 02/27/18 07:00 Intake and Output: 02/27/18 02/27/18 06:59 18:59 Intake Total 620 Output Total 700 Balance -80 - Medications Medications: Current Medications Acetaminophen (Tylenol 325mg Tab) 650 mg PO Q6 PRN PRN Reason: Pain, Mild (1-3) Last Admin: 02/23/18 03:21 Dose: 650 mg Al Hydrox/Mg Hydrox/Simethicone (Maalox Plus 30 Ml) 30 ml PO DAILY PRN PRN Reason: Indigestion / Heartburn Last Admin: 02/24/18 10:23 Dose: 30 ml Docusate Sodium (Colace) 100 mg PO TID [facility] Last Admin: 02/27/18 15:01 Dose: 100 mg Enoxaparin Sodium (Lovenox) 40 mg SC DAILY [facility]; Protocol Last Admin: 02/27/18 09:49 Dose: 40 mg Ferrous Sulfate (Feosol) 324 mg PO TID [facility] Last Admin: 02/27/18 15:01 Dose: 324 mg Folic Acid (Folic Acid) 1 mg PO DAILY [facility] Last Admin: 02/27/18 10:02 Dose: 1 mg Vancomycin HCl (Vancomycin 1gm) 1 gm in 250 mls @ 167 mls/hr IVPB Q12H [facility]; Protocol Last Admin: 02/27/18 06:54 Dose: 167 mls/hr Piperacillin Sod/Tazobactam Sod (Zosyn 3.375 In Ns 100ml) 100 mls @ 25 mls/hr IVPB Q8 [facility]; Protocol Last Admin: 02/27/18 15:03 Dose: 25 mls/hr Ibuprofen (Motrin Tab) 600 mg PO Q6 PRN PRN Reason: Fever >100.4 F Last Admin: 02/22/18 01:30 Dose: 600 mg Lorazepam (Ativan) 2 mg IVP Q4H PRN; Protocol PRN Reason: Symptoms of alcohol withdrawl Last Admin: 02/21/18 10:17 Dose: 2 mg Morphine Sulfate (Morphine) 2 mg IVP Q4 PRN PRN Reason: Pain, severe (8-10) Last Admin: 02/27/18 16:00 Dose: 2 mg Mupirocin (Bactroban Ointment) 0 gm NS BID [facility] Last Admin: 02/27/18 09:48 Dose: 1 appl Ondansetron HCl (Zofran Inj) 4 mg IVP Q6 PRN PRN Reason: Nausea/Vomiting Last Admin: 02/22/18 22:49 Dose: 4 mg Pantoprazole Sodium (Protonix Ec Tab) 40 mg PO ACB [facility] Last Admin: 02/27/18 06:38 Dose: 40 mg Simethicone (Mylicon Chew Tab) 80 mg PO [facility] PRN PRN Reason: GI distress Last Admin: 02/24/18 14:49 Dose: 80 mg - Labs Labs: 02/27/18 07:00 02/27/18 07:00 PT 14.0 SECONDS (9.4-12.5) H 02/22/18 06:15 INR 1.21 02/22/18 06:15 APTT 28.1 Seconds (25.1-36.5) 02/22/18 06:15 - Constitutional Appears: Non-toxic, No Acute Distress, Chronically Ill - Head Exam Head Exam: ATRAUMATIC, NORMOCEPHALIC - Eye Exam Eye Exam: EOMI, PERRL Pupil Exam: NORMAL ACCOMODATION, PERRL - ENT Exam ENT Exam: Mucous Membranes Moist, Normal External Ear Exam, TM's Normal Bilaterally - Neck Exam Neck Exam: Full ROM, Normal Inspection - Respiratory Exam Respiratory Exam: Clear to Ausculation Bilateral, NORMAL BREATHING PATTERN. absent: Rales, Rhonchi, Wheezes - Cardiovascular Exam Cardiovascular Exam: REGULAR RHYTHM, RRR, +S1, +S2 - GI/Abdominal Exam GI & Abdominal Exam: Soft, Normal Bowel Sounds. absent: Distended, Tenderness - Extremities Exam Additional comments: left lower leg swelling. Decrease ROM of the right hip. Left hip I&D. - Neurological Exam Neurological Exam: Alert, Awake, CN II-XII Intact, Oriented x3 - Psychiatric Exam Psychiatric exam: Normal Affect, Normal Mood - Skin Skin Exam: Intact, Normal Color Assessment and Plan - Assessment and Plan (Free Text) Assessment: 47 yo male with worsening left groin pain and swelling. The patient was found on CT of the abdomen and pelvis to have: "Extensive erosive lytic changes of the left femoral head and the corresponding ax packed of the left acetabulum with associated large joint effusion and periosteal new bone formation. Secondary joint effusion with multiloculated abscess measuring 13.7 x 11.2 x 9.1 centimeters in craniocaudad, AP and transverse dimensions. This arises from the left hip joint synovium extending into the surrounding left iliacus muscle and adjacent periarticular muscles/soft tissues. Associated heterogeneous lytic changes of the left iliac bone e xtending into the left sacroiliac joint and the corresponding aspect of the left sacral ala. 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 Supportive care. Taken to OR for I&D of the left hip. Incomplete I&D due to difficulties in reaching portions of the collection. Cultures taken from the OR can be negative as the patient was on Zosyn and Vancomcyin on admission. Use of Dalvance IV and Cipro orally for treatment of osteomyelitis. Dalvance 1500mg IV weekly for 2 weeks and Cipro 500mg BID for 6 weeks. Thank you for allowing me to participate in the care of the patient, we will follow with you.
[2018-02-28] MEDS: Morphine 2 mg/ml ISec IVP PRN ×3 (01:53→09:56)
[2018-02-28] MEDS: Piperacillin/Tazobact 3.375 gm 100 ML IVPB SCH ×3 (05:28→21:37)
[2018-02-28] MEDS: Pantoprazole 40 mg EC Tab PO SCH (06:42)
[2018-02-28] MEDS: Vancomycin 1gm in NS 250ml 1 GM/250 ML BAG IVPB SCH ×2 (06:50→19:34)
--- NOTE | 2018-02-28 09:14 | CP.PCM.PN ---
Subjective - Date & Time of Evaluation Date of Evaluation: 02/28/18 Time of Evaluation: 09:09 - Subjective Subjective: Shelby Mar, PGY-1 Medicine Progress Note for Dr. Gomez: Pt was seen and examined at bedside this AM. Pt states that he is still having pain when he attempts to move his L hip, but otherwise his pain is well controlled at rest. Pt states that he is interested in working with PT today as long as his pain can be well controlled. He is currently denying fevers, chills, cp, sob, cough, abd pain, n/v, c/d, dysuria or frequency. Pt does state that he is having some lizzy-incisional numbness but it does not extend past the incision. Objective - Vital Signs/Intake and Output Vital Signs (last 24 hours): Temp Pulse Resp BP Pulse Ox 99 F 79 18 118/75 98 02/28/18 06:00 02/28/18 06:00 02/28/18 06:00 02/28/18 06:00 02/28/18 06:00 - Medications Medications: Current Medications Acetaminophen (Tylenol 325mg Tab) 650 mg PO Q6 PRN PRN Reason: Pain, Mild (1-3) Last Admin: 02/23/18 03:21 Dose: 650 mg Al Hydrox/Mg Hydrox/Simethicone (Maalox Plus 30 Ml) 30 ml PO DAILY PRN PRN Reason: Indigestion / Heartburn Last Admin: 02/24/18 10:23 Dose: 30 ml Docusate Sodium (Colace) 100 mg PO TID [facility] Last Admin: 02/27/18 18:50 Dose: 100 mg Enoxaparin Sodium (Lovenox) 40 mg SC DAILY [facility]; Protocol Last Admin: 02/27/18 09:49 Dose: 40 mg Ferrous Sulfate (Feosol) 324 mg PO TID [facility] Last Admin: 02/27/18 18:50 Dose: 324 mg Folic Acid (Folic Acid) 1 mg PO DAILY [facility] Last Admin: 02/27/18 10:02 Dose: 1 mg Vancomycin HCl (Vancomycin 1gm) 1 gm in 250 mls @ 167 mls/hr IVPB Q12H [facility]; Protocol Last Admin: 02/28/18 06:50 Dose: 167 mls/hr Piperacillin Sod/Tazobactam Sod (Zosyn 3.375 In Ns 100ml) 100 mls @ 25 mls/hr IVPB Q8 [facility]; Protocol Last Admin: 02/28/18 05:28 Dose: 25 mls/hr Ibuprofen (Motrin Tab) 600 mg PO Q6 PRN PRN Reason: Fever >100.4 F Last Admin: 02/28/18 05:27 Dose: 600 mg Lorazepam (Ativan) 2 mg IVP Q4H [facility]; Protocol PRN Reason: Symptoms of alcohol withdrawl Last Admin: 02/21/18 10:17 Dose: 2 mg Methadone HCl (Methadone) 10 mg PO Q6 PRN PRN Reason: Pain, moderate (4-7) Last Admin: 02/27/18 19:16 Dose: 10 mg Morphine Sulfate (Morphine) 2 mg IVP Q4 PRN PRN Reason: Pain, severe (8-10) Last Admin: 02/28/18 06:02 Dose: 2 mg Mupirocin (Bactroban Ointment) 0 gm NS BID [facility] Last Admin: 02/27/18 18:49 Dose: 1 appl Ondansetron HCl (Zofran Inj) 4 mg IVP Q6 PRN PRN Reason: Nausea/Vomiting Last Admin: 02/22/18 22:49 Dose: 4 mg Pantoprazole Sodium (Protonix Ec Tab) 40 mg PO ACB [facility] Last Admin: 02/28/18 06:42 Dose: 40 mg Simethicone (Mylicon Chew Tab) 80 mg PO [facility] PRN PRN Reason: GI distress Last Admin: 02/24/18 14:49 Dose: 80 mg - Labs Labs: 02/27/18 07:00 02/27/18 07:00 PT 14.0 SECONDS (9.4-12.5) H 02/22/18 06:15 INR 1.21 02/22/18 06:15 APTT 28.1 Seconds (25.1-36.5) 02/22/18 06:15 - Constitutional Appears: Well, Non-toxic, No Acute Distress - Head Exam Head Exam: ATRAUMATIC, NORMAL INSPECTION, NORMOCEPHALIC - Eye Exam Eye Exam: EOMI, Normal appearance, PERRL - ENT Exam ENT Exam: Mucous Membranes Moist, Normal Exam - Respiratory Exam Respiratory Exam: Clear to Ausculation Bilateral, NORMAL BREATHING PATTERN. absent: Accessory Muscle Use, Decreased Breath Sounds, Rales, Rhonchi, Wheezes, Respiratory Distress, Stridor - Cardiovascular Exam Cardiovascular Exam: RRR, +S1, +S2. absent: Gallop, Rubs, Murmur - GI/Abdominal Exam GI & Abdominal Exam: Soft, Normal Bowel Sounds. absent: Firm, Guarding, Rigid, Tenderness - Extremities Exam Extremities Exam: absent: Calf Tenderness, Joint Swelling, Pedal Edema, Tenderness Additional comments: Pt still has dressing over incision over L hip, dressing is not saturated and there is no strikethrough of any bloodd or purulent material. - Back Exam Back Exam: CVA tenderness (R), NORMAL INSPECTION. absent: CVA tenderness (L) - Neurological Exam Neurological Exam: Alert. absent: Awake, Oriented x3 - Psychiatric Exam Psychiatric exam: Normal Affect, Normal Mood - Skin Skin Exam: Dry, Normal Color Assessment and Plan - Assessment and Plan (Free Text) Assessment: 47-year-old Male with PMH of poly-substance abuse, sciatica, Hep C who presents to the ED with L hip pain, admitted for further evaluation and treatment of L hip/ L groin abscess. Patient is s/p I&D L hip (02/22/18). Plan: L hip/L groin abscess - Patient afebrile, leukocytosis resolving - POD s/p I&D L hip. Multiple loculation and abscesses removed. Per ortho, there is still a pelvic mass in the medial region that wasn't able to be removed - Per IR, no plans for further intervention - Wound culture growing MRSA - Continue vanc/zosyn. - Blood cultures (-) - Increased methadone to 20 Q12 for pain control - Tylenol 650mg PO q6h PRN mild pain, percocet 1tab PO q4h PRN mod pain, - Warm compresses q2h, as per Gen Sx - ID consulted, Dr. Olmstead - f/u recs - PT/OT - Regular diet Constipation - Likely secondary to opioid use - Continue lactulose, dulcolax MRSA + nares - Mupirocin bid x 5 days - Today is Day 5 Microcytic Anemia - h/h stable - s/p 1 u pRBC IV Polysubstance Abuse - UDS + for cocaine and opiates - Patient admitted to heroin and cocaine use - [facility] protocol. - Methadone started for opioid withdrawal - Seizure precautions - Fall precautions - Ativan 2mg IV q4h PRN - Zofran 4mg IV q6h PRN - Counseled on cessation PPx DVT: lovenox GI: Protonix IVP Dispo: D/C tomorrow Case seen and discussed with Dr. Patricia Mar DO Internal Medicine Resident PGY-1
[2018-02-28] MEDS: Mupirocin 2% Ointment 15 GM TUBE NS SCH ×2 (09:56→19:43)
[2018-02-28] MEDS: Enoxaparin 40 mg Syringe SC SCH (09:56)
[2018-02-28] MEDS ORDERED: Bisacodyl 5mg EC Tab PO ONE (10:04)
--- NOTE | 2018-02-28 18:52 | CP.PCM.PN ---
Subjective - Date & Time of Evaluation Date of Evaluation: 02/28/18 Time of Evaluation: 16:45 - Subjective Subjective: Infectious Disease Follow Up: February 28, 2018 47 yo male with PMHx of Hepatitis C, MRSA bacteremia history. The patient complains of pain in the back, buttocks, and left groin. He told the ER that it started 3 days ago. He states now that it has been over a week now. The patient has had chronic back pain and sciatic pain from at least 4 months. He is uncooperative with the interview and exam. Known history of Heroin use. CT scan showed large groin abscess invading into the left hip joint measuring [id number] invading into the left hip. questionable osteomyelitis sacral and sacroiliac joint. Taken for I&D by Orthopedics. Unfortunately, the entire collection could not be drained due to difficulty in reaching certain central areas. Dr. Polanco did not see anything further that could be drained. Restarted antibiotics. Cultures from the OR can be negative as antibiotics were given on admission. As of now, one culture showing MRSA. He still complains of mild-mod hip pain. He is not getting out of bed. Objective - Vital Signs/Intake and Output Vital Signs (last 24 hours): Temp Pulse Resp BP Pulse Ox 97.6 F 87 18 127/77 100 02/28/18 14:00 02/28/18 14:00 02/28/18 14:00 02/28/18 14:00 02/28/18 14:00 - Medications Medications: Current Medications Acetaminophen (Tylenol 325mg Tab) 650 mg PO Q6 PRN PRN Reason: Pain, Mild (1-3) Last Admin: 02/23/18 03:21 Dose: 650 mg Al Hydrox/Mg Hydrox/Simethicone (Maalox Plus 30 Ml) 30 ml PO DAILY PRN PRN Reason: Indigestion / Heartburn Last Admin: 02/24/18 10:23 Dose: 30 ml Docusate Sodium (Colace) 100 mg PO TID [facility] Last Admin: 02/28/18 17:58 Dose: 100 mg Enoxaparin Sodium (Lovenox) 40 mg SC DAILY [facility]; Protocol Last Admin: 02/28/18 09:56 Dose: 40 mg Ferrous Sulfate (Feosol) 324 mg PO TID [facility] Last Admin: 02/28/18 17:58 Dose: 324 mg Folic Acid (Folic Acid) 1 mg PO DAILY [facility] Last Admin: 02/28/18 09:55 Dose: 1 mg Vancomycin HCl (Vancomycin 1gm) 1 gm in 250 mls @ 167 mls/hr IVPB Q12H [facility]; Protocol Last Admin: 02/28/18 06:50 Dose: 167 mls/hr Piperacillin Sod/Tazobactam Sod (Zosyn 3.375 In Ns 100ml) 100 mls @ 25 mls/hr IVPB Q8 [facility]; Protocol Last Admin: 02/28/18 15:15 Dose: 25 mls/hr Ibuprofen (Motrin Tab) 600 mg PO Q6 PRN PRN Reason: Fever >100.4 F Last Admin: 02/28/18 05:27 Dose: 600 mg Lorazepam (Ativan) 2 mg IVP Q4H PRN; Protocol PRN Reason: Symptoms of alcohol withdrawl Last Admin: 02/21/18 10:17 Dose: 2 mg Methadone HCl (Methadone) 20 mg PO Q12 [facility] Last Admin: 02/28/18 11:46 Dose: 20 mg Mupirocin (Bactroban Ointment) 0 gm NS BID [facility] Last Admin: 02/28/18 09:56 Dose: 1 appl Ondansetron HCl (Zofran Inj) 4 mg IVP Q6 PRN PRN Reason: Nausea/Vomiting Last Admin: 02/22/18 22:49 Dose: 4 mg Pantoprazole Sodium (Protonix Ec Tab) 40 mg PO ACB [facility] Last Admin: 02/28/18 06:42 Dose: 40 mg Simethicone (Mylicon Chew Tab) 80 mg PO PCHS PRN PRN Reason: GI distress Last Admin: 02/24/18 14:49 Dose: 80 mg - Labs Labs: 02/27/18 07:00 02/27/18 07:00 PT 14.0 SECONDS (9.4-12.5) H 02/22/18 06:15 INR 1.21 02/22/18 06:15 APTT 28.1 Seconds (25.1-36.5) 02/22/18 06:15 - Constitutional Appears: Non-toxic, No Acute Distress, Chronically Ill - Head Exam Head Exam: ATRAUMATIC, NORMOCEPHALIC - Eye Exam Eye Exam: EOMI, PERRL Pupil Exam: NORMAL ACCOMODATION, PERRL - ENT Exam ENT Exam: Mucous Membranes Moist, Normal External Ear Exam, TM's Normal Bilaterally - Neck Exam Neck Exam: Full ROM, Normal Inspection - Respiratory Exam Respiratory Exam: Clear to Ausculation Bilateral, NORMAL BREATHING PATTERN. absent: Rales, Rhonchi, Wheezes - Cardiovascular Exam Cardiovascular Exam: REGULAR RHYTHM, RRR, +S1, +S2 - GI/Abdominal Exam GI & Abdominal Exam: Soft, Normal Bowel Sounds. absent: Distended, Tenderness - Extremities Exam Additional comments: left lower leg swelling. Decrease ROM of the right hip. Left hip I&D. - Neurological Exam Neurological Exam: Alert, Awake, CN II-XII Intact, Oriented x3 - Psychiatric Exam Psychiatric exam: Normal Affect, Normal Mood - Skin Skin Exam: Intact, Normal Color Assessment and Plan - Assessment and Plan (Free Text) Assessment: 47 yo male with worsening left groin pain and swelling. The patient was found on CT of the abdomen and pelvis to have: "Extensive erosive lytic changes of the left femoral head and the corresponding ax packed of the left acetabulum with associated large joint effusion and periosteal new bone formation. Secondary joint effusion with multiloculated abscess measuring 13.7 x 11.2 x 9.1 centimeters in craniocaudad, AP and transverse dimensions. This arises from the left hip joint synovium extending into the surrounding left iliacus muscle and adjacent periarticular muscles/soft tissues. Associated heterogeneous lytic changes of the left iliac bone extending into the left sacroiliac joint and the corresponding aspect of the left sacral ala. 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 Supportive care. Taken to OR for I&D of the left hip. Incomplete I&D due to difficulties in reaching portions of the collection. Cultures taken from the OR can be negative as the patient was on Zosyn and Vancomcyin on admission. Use of Dalvance IV and Cipro orally for treatment of osteomyelitis. Dalvance 1500mg IV weekly for 2 weeks and Cipro 500mg BID for 6 weeks. Thank you for allowing me to participate in the care of the patient, we will follow with you.
[2018-03-01] MEDS: Pantoprazole 40 mg EC Tab PO SCH (06:46)
[2018-03-01] MEDS: Piperacillin/Tazobact 3.375 gm 100 ML IVPB SCH (06:46)
[2018-03-01] MEDS: Vancomycin 1gm in NS 250ml 1 GM/250 ML BAG IVPB SCH (06:46)
[2018-03-01 06:59] LABS: HEMOGLOBIN 8.4 g/dL (14.0-18.0); MEAN CELL VOLUME 76.5 fl (80.0-105.0); MEAN CORPUSCULAR HEMOGLOBIN 23.5 pg (25.0-35.0); MEAN CORPUSCULAR HGB CONC 30.7 g/dl (31.0-37.0); RBC 3.58 10^6/uL (3.5-6.1); RED CELL DISTRIBUTION WIDTH 19.2 % (11.5-14.5); WHITE BLOOD COUNT 9.6 10^3/uL (4.5-11.0)
[2018-03-01 07:08] LABS: BLOOD UREA NITROGEN 17 mg/dL (7-21); CALCIUM 9.2 mg/dL (8.4-10.5); GFR NON-AFRICAN AMERICAN > 60
[2018-03-01 07:59] VITALS: BP 99/65; PULSE 87; RESP 20; TEMP 97.6; O2SAT 97
[2018-03-01] MEDS: Mupirocin 2% Ointment 15 GM TUBE NS SCH (11:01)
[2018-03-01] MEDS: Enoxaparin 40 mg Syringe SC SCH (11:04)
--- NOTE | 2018-03-01 15:26 | CP.PCM.DIS ---
Provider - Provider Date of Admission: 02/21/18 04:49 Attending physician: Rachel Mata MD Consults: 02/21/18 04:48 General Surgery Consult Routine Comment: Consulting Provider: Za Hsu Consulting Physician: Za Hsu Reason for Consult: left hip abscess 02/21/18 05:54 Infectious Disease Consult Routine Comment: Consulting Provider: Cheng Olmstead Consulting Physician: Cheng Olmstead Reason for Consult: pt w/ h/o MRSA+ bacteremia, w/ multiloculated L hip abscess Physician Consult Routine Comment: Consulting Provider: Fco Day Consulting Physician: Fco Day Reason for Consult: pt w/ multiloculated L hip abscess and osteomyelitis 02/21/18 11:48 Physician Consult Stat Comment: Consulting Provider: David Polanco Consulting Physician: David Polanco Reason for Consult: L hip abscess drainage Time Spent in preparation of Discharge (in minutes): 45 Diagnosis - Discharge Diagnosis (1) Abscess of left hip Status: Acute (2) Pelvic abscess Status: Acute Hospital Course - Lab Results Lab Results: Micro Results 02/22/18 17:43 Abscess - Left Gram Stain - Final 02/22/18 17:43 Abscess - Left Wound Culture - Final No Growth 02/21/18 04:50 Blood Blood Culture - Final NO GROWTH AFTER 5 DAYS 02/21/18 04:50 Blood Gram Stain - Final TEST NOT PERFORMED 02/21/18 04:30 Blood Blood Culture - Final NO GROWTH AFTER 5 DAYS 02/21/18 04:30 Blood Gram Stain - Final TEST NOT PERFORMED 02/22/18 17:15 Abscess - Left Gram Stain - Final 02/22/18 17:15 Abscess - Left Wound Culture - Final Methicillin Resistant S Aureus 02/21/18 17:25 Naris MRSA Culture (Admit) - Final 02/21/18 02:09 Urine Urine Culture - Final No Growth (<1,000 CFU/ML) Most Recent Lab Values WBC 9.6 10^3/uL (4.5-11.0) 03/01/18 06:30 RBC 3.58 10^6/uL (3.5-6.1) 03/01/18 06:30 Hgb 8.4 g/dL (14.0-18.0) L 03/01/18 06:30 Hct 27.4 % (42.0-52.0) L 03/01/18 06:30 MCV 76.5 fl (80.0-105.0) L 03/01/18 06:30 MCH 23.5 pg (25.0-35.0) L 03/01/18 06:30 MCHC 30.7 g/dl (31.0-37.0) L 03/01/18 06:30 RDW 19.2 % (11.5-14.5) H 03/01/18 06:30 Plt Count 541 10^3/uL (120.0-450.0) H 03/01/18 06:30 MPV 8.0 fl (7.0-11.0) 03/01/18 06:30 Gran % 56.7 % (50.0-68.0) 02/26/18 05:30 Lymph % (Auto) 32.6 % (22.0-35.0) 02/26/18 05:30 Jack % (Auto) 7.3 % (1.0-6.0) H 02/26/18 05:30 Eos % (Auto) 3.3 % (1.5-5.0) 02/26/18 05:30 Baso % (Auto) 0.1 % (0.0-3.0) 02/26/18 05:30 Gran # 5.02 (1.4-6.5) 02/26/18 05:30 Lymph # (Auto) 2.9 (1.2-3.4) 02/26/18 05:30 Jack # (Auto) 0.7 (0.1-0.6) H 02/26/18 05:30 Eos # (Auto) 0.3 (0.0-0.7) 02/26/18 05:30 Baso # (Auto) 0.01 K/mm3 (0.0-2.0) 02/26/18 05:30 ESR 77 mm/hr (0.0-15.0) H 02/21/18 05:54 Retic Count 1.25 % (0.5-1.5) 02/21/18 05:54 PT 14.0 SECONDS (9.4-12.5) H 02/22/18 06:15 INR 1.21 02/22/18 06:15 APTT 28.1 Seconds (25.1-36.5) 02/22/18 06:15 Sodium 137 mmol/L (132-148) 03/01/18 06:30 Potassium 4.5 mmol/L (3.6-5.0) 03/01/18 06:30 Chloride 101 mmol/L (98-107) 03/01/18 06:30 Carbon Dioxide 30 mmol/L (21-33) 03/01/18 06:30 Anion Gap 11 (10-20) 03/01/18 06:30 BUN 17 mg/dL (7-21) 03/01/18 06:30 Creatinine 0.6 mg/dl (0.8-1.5) L 03/01/18 06:30 Est GFR ( Amer) > 60 03/01/18 06:30 Est GFR (Non-Af Amer) > 60 03/01/18 06:30 Random Glucose 85 mg/dL (70-110) 03/01/18 06:30 Calcium 9.2 mg/dL (8.4-10.5) 03/01/18 06:30 Magnesium 1.9 mg/dL (1.7-2.2) 02/21/18 02:09 Iron 19 ug/dL (45-180) L 02/21/18 05:54 TIBC 254 ug/dL (261-462) L 02/21/18 05:54 % Saturation 7 % (20-55) L 02/21/18 05:54 Ferritin 73.2 ng/mL 02/21/18 05:54 Total Bilirubin 0.1 mg/dL (0.2-1.3) L 02/26/18 05:30 AST 40 U/L (17-59) 02/26/18 05:30 ALT 24 U/L (7-56) 02/26/18 05:30 Alkaline Phosphatase 52 U/L (38-126) 02/26/18 05:30 Total Protein 6.8 g/dL (5.8-8.3) 02/26/18 05:30 Albumin 2.7 g/dL (3.0-4.8) L 02/26/18 05:30 Globulin 4.0 gm/dL 02/26/18 05:30 Albumin/Globulin Ratio 0.7 (1.1-1.8) L 02/26/18 05:30 Lipase 21 U/L (23-300) L 02/21/18 02:09 Vitamin B12 363 pg/mL (239-931) 02/21/18 05:54 Folate 18.5 ng/mL 02/21/18 05:54 Urine Color Yellow (YELLOW) 02/21/18 20:53 Urine Appearance Clear (CLEAR) 02/21/18 20:53 Urine pH 7.0 (4.7-8.0) 02/21/18 20:53 Ur Specific [place] 1.010 (1.005-1.035) 02/21/18 20:53 Urine Protein Negative mg/dL (<30 mg/dL) 02/21/18 20:53 Urine Glucose (UA) Negative mg/dL (NEGATIVE) 02/21/18 20:53 Urine Ketones Trace mg/dL (NEGATIVE) H 02/21/18 20:53 Urine Blood Negative (NEGATIVE) 02/21/18 20:53 Urine Nitrate Negative (NEGATIVE) 02/21/18 20:53 Urine Bilirubin Negative (NEGATIVE) 02/21/18 20:53 Urine Urobilinogen 0.2 E.U./dL (<1 E.U./dL) 02/21/18 20:53 Ur Leukocyte Esterase Negative Rachid/uL (NEGATIVE) 02/21/18 20:53 Urine RBC 20 - 25 /hpf (0-2) 02/21/18 02:09 Urine WBC 0 - 2 /hpf (0-6) 02/21/18 02:09 Ur Epithelial Cells 0 - 2 /hpf (0-5) 02/21/18 02:09 Urine Bacteria Occ (NEG) 02/21/18 02:09 Stool Occult Blood Negative (NEGATIVE) 03/01/18 11:24 Urine Opiates Screen Positive (NEGATIVE) H 02/21/18 20:53 Urine Methadone Screen Negative (NEGATIVE) 02/21/18 20:53 Ur Barbiturates Screen Negative (NEGATIVE) 02/21/18 20:53 Ur Phencyclidine Scrn Negative (NEGATIVE) 02/21/18 20:53 Ur Amphetamines Screen Negative (NEGATIVE) 02/21/18 20:53 U Benzodiazepines Scrn Negative (NEGATIVE) 02/21/18 20:53 U Oth Cocaine Metabols Positive (NEGATIVE) H 02/21/18 20:53 U Cannabinoids Screen Negative (NEGATIVE) 02/21/18 20:53 Hepatitis A IgM Ab Negative (NEGATIVE) 02/22/18 06:15 Hep Bs Antigen Negative (NEGATIVE) 02/22/18 06:15 Hep B Core IgM Ab Negative (NEGATIVE) 02/22/18 06:15 Hepatitis C Antibody Reactive (NEGATIVE) 02/22/18 06:15 HIV 1&2 Ag/Ab, 4th Gen Nonreactive (Nonreactive) 02/22/18 07:00 Blood Type A POSITIVE 02/21/18 11:30 Blood Type Confirm A POSITIVE 02/21/18 11:45 Antibody Screen Negative 02/21/18 11:30 Crossmatch See Detail 02/21/18 11:30 BBK History Checked No verified bt 02/21/18 11:30 - Hospital Course Hospital Course: Upon Admission: Pt is a 47yo M w PMH of poly-substance abuse, sciatica, Hep C who presents to the ED with L hip pain. He reports pain in the L hip and L sided lower back for 4 months, but acute worsening of the pain and noticing a bulge in the groin for the past 3 days. He denies falling or any trauma to the area. He reports an "unbearable" pain that he rates 10/10, for which he took ibuprofen at home with minimal relief. He reports associated swelling in the L leg, intermittent n umbness and tingling, and radiation of the pain to his back, L buttock, and down the L leg. He also reports 1 episode of NB/NB vomiting at home. He says he has not been able to walk or sit due to the pain. He denies any fever, chills, shortness of breath, abdominal pain, nausea, diarrhea, dysuria. 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 Hospital Course: Due to the CT findings pt was taken to the OR by ortho and I&D was performed with specimen sent for path. Pathology of the specimen came back positive for MRSA, but pts blood cultures were negative for any bacteremia. Pt had hx of MRSA bactermia with echos done in the past which did not show evidence of endocarditis. Ortho stated that there was no further intervention planned at this time for the pt in the hospital. ID following the pt stated that the pt could be D/shaila on IV Dalvance q/wk x 2 wks and po cipro 500 BID for 6 weeks. Pt was able to ambulate and walk with PT, and the medical plan for discharge was explained to the pt. The pt expressed understanding and agreement with the plan for d/c. All of the pts questions were addressed prior to d/c. Discharge Exam - Head Exam Head Exam: ATRAUMATIC, NORMAL INSPECTION, NORMOCEPHALIC - Eye Exam Eye Exam: EOMI, Normal appearance, PERRL - Respiratory Exam Respiratory Exam: Clear to PA & Lateral, NORMAL BREATHING PATTERN, UNREMARKABLE. absent: Accessory Muscle Use, Decreased Breath Sounds, Prolonged Expiratory Phase, Rales, Rhonchi, Wheezes, Respiratory Distress, Stridor - Cardiovascular Exam Cardiovascular Exam: RRR, +S1, +S2. absent: Gallop, Rubs - GI/Abdominal Exam GI & Abdominal Exam: Normal Bowel Sounds, Soft, Unremarkable. absent: Firm, Guarding, Tenderness - Extremities Exam Extremities exam: normal capillary refill, pedal pulses present Additional comments: Ot has clean dressing applied to incision site over L hip. Surrounding area is not erythematous or indurated and currently shows no sign of infection. Dressing is clear, dry and intact. - Back Exam Back exam: NORMAL INSPECTION. absent: CVA tenderness (L), CVA tenderness (R) - Neurological Exam Neurological exam: Alert, Oriented x3 - Psychiatric Exam Psychiatric exam: Normal Affect, Normal Mood - Skin Skin Exam: Intact, Normal Color, Warm Discharge Plan - Discharge Medications Prescriptions: Ciprofloxacin [Cipro] 500 mg PO BID #84 tab - Follow Up Plan Condition: FAIR Disposition: HOME/ ROUTINE Instructions: Ciprofloxacin (Systemic), Cellulitis (Skin Infection), Adult (DC), Abscess (GEN) Additional Instructions: Please follow up at the [facility] as scheduled March 10, 2018 at 01:00pm. Please arrive 15-20 minutes early with all necessary documentation and any ivette care paperwork that you have been given. Please discuss all medical issues addressed during your admission. [facility] for your infusion of antibiotics. You will need to do this once per week for the next week. Please complete all registration paperwork. You have been started on an antibiotic called Ciprofloxacin that you will need to take twice per day for the next forty two days (42). Please read over the information regarding this medication that has been provided in this paperwork. Please stop using heroin. To further help your cessation efforts, please get in contact with [facility]. Intake is done M-F from 7:00am-12:00pm. They are located at: [address] [place] [address] They can be reached at: If your symptoms return, please seek emergency medical attention immediately. Referrals: [facility] at [facility] [Outside] Cheng Olmstead MD [Staff Provider] -
== END 2018-03-01 13:41 | disposition home or self-care (01) | DRG 951 ==
LOC: ED 00:49 → ERH 04:49 → 5RNO 06:32
PROVIDERS: ADMIT Internal Medicine; ATTEND Internal Medicine
PROC: 3E1U38Z Irrigation of Joints using Irrigating Substance, Percutaneous Approach (ICD-10-PCS; 2018-02-22)
PROC: 0SBB0ZZ Excision of Left Hip Joint, Open Approach (ICD-10-PCS; principal; 2018-02-22 14:00)
DX: K65.1 Peritoneal abscess (principal); M00.9 Pyogenic arthritis, unspecified; L02.416 Cutaneous abscess of left lower limb; M86.8X8 Other osteomyelitis, other site; D50.9 Iron deficiency anemia, unspecified; F14.90 Cocaine use, unspecified, uncomplicated; F11.23 Opioid dependence with withdrawal; B18.2 Chronic viral hepatitis C; L02.214 Cutaneous abscess of groin; E03.9 Hypothyroidism, unspecified; K59.00 Constipation, unspecified; M54.30 Sciatica, unspecified side; Z86.14 Personal history of Methicillin resistant Staphylococcus aureus infection; Z87.891 Personal history of nicotine dependence; Z87.09 Personal history of other diseases of the respiratory system; R40.2412 Glasgow coma scale score 13-15, at arrival to emergency department

== ENCOUNTER 2018-03-25 18:08 | Inpatient (IN) | payer MEDICAID, OTHER ==
[2018-03-25 18:09] VITALS: BMI 25.0
[2018-03-25] MEDS ORDERED: Sodium Chloride 0.9% 1,000 ML IV STA (19:12)
--- NOTE | 2018-03-25 19:14 | ED PDOC ---
Arrival/HPI - General Chief Complaint: Abnormal Skin Integrity Time Seen by Provider: 03/25/18 19:00 Historian: Patient - History of Present Illness Narrative History of Present Illness (Text): A 47 year old male, whose past medical history includes poly-substance abuse on methadone program (10-20 a day), sciatica, Hep C, Recent L groin abscess w/ drainage who presents to the ED with L hip pain, presents to the emergency depar tment with a complaint of abscess to the left groin. The patient notes that he noticed it a few weeks ago. He notes going to his methadone clinic today and getting his normal dosage of 20. No current antibiotics. No trauma or fall. The patient reports associated nausea and vomiting with the pain. The patient denies fevers, chills, headache, dizziness, chest pain, shortness of breath, dyspnea on exertion, cough, abdominal pain, diarrhea, back pain, neck pain, urinary/bowel changes, or any other complaint. PMD: none Surgeon: Dr. Hsu Time/Duration: Other (Several weeks) Symptom Onset: Sudden Symptom Course: Unchanged Activities at Onset: Rest, Light Context: Home Past Medical History - Provider Review Nursing Documentation Reviewed: Yes - Infectious Disease Hx of Infectious Diseases: None - Cardiac Hx Cardiac Disorders: Yes Other/Comment: "infection in the heart". Endocarditis - Pulmonary Hx Respiratory Disorders: Yes Hx Asthma: Yes - Neurological Hx Neurological Disorder: No - HEENT Hx HEENT Disorder: No - Renal Hx Renal Disorder: No - Endocrine/Metabolic Hx Endocrine Disorders: Yes Hx Hypothyroidism: Yes - Hematological/Oncological Hx Blood Transfusions: Yes Hx Blood Transfusion Reaction: No - Integumentary Hx Dermatological Disorder: No - Musculoskeletal/Rheumatological Hx Falls: Yes Hx Osteoarthritis: Yes Other/Comment: sciatica - Gastrointestinal Hx Gastrointestinal Disorders: No - Genitourinary/Gynecological Hx Genitourinary Disorders: No - Psychiatric Hx Substance Use: Yes (Heroin) Other/Comment: drug abuse - Anesthesia Hx Anesthesia Reactions: No Hx Malignant Hyperthermia: No Family/Social History - Physician Review Nursing Documentation Reviewed: Yes Family/Social History: No Known Family HX Smoking Status: Heavy Smoker > 10 Cigarettes Daily Hx Alcohol Use: Yes Hx Substance Use: Yes (Heroin) Substance used: heroine Allergies/Home Meds Allergies/Adverse Reactions: Allergies No Known Allergies Allergy (Unverified 11/17/17 03:09) Review of Systems - Physician Review All systems were reviewed & negative as marked: Yes - Review of Systems Constitutional: absent: Fatigue, Weight Change, Fevers Eyes: absent: Vision Changes, Photophobia ENT: absent: Hearing Changes Respiratory: absent: SOB, Cough Cardiovascular: absent: Chest Pain, GAINES Gastrointestinal: Nausea, Vomiting. absent: Abdominal Pain, Stool Changes, Diarrhea Genitourinary Male: absent: Urinary Output Changes Musculoskeletal: absent: Back Pain, Neck Pain Skin: Abscess (Abscess left groin) Neurological: absent: Headache, Dizziness Physical Exam Vital Signs Reviewed: Yes Vital Signs Temp Pulse Resp BP Pulse Ox 03/25/18 18:20 99.3 F 101 H 18 115/68 94 L Temperature: Afebrile Blood Pressure: Normal Pulse: Tachycardic Respiratory Rate: Normal Appearance: Positive for: Well-Appearing, Non-Toxic, Comfortable Pain Distress: None Mental Status: Positive for: Alert and Oriented X 3 - Systems Exam Head: Present: Atraumatic, Normocephalic Pupils: Present: PERRL Extroacular Muscles: Present: EOMI Conjunctiva: Present: Normal Mouth: Present: Moist Mucous Membranes Neck: Present: Normal Range of Motion Respiratory/Chest: Present: Clear to Auscultation, Good Air Exchange. No: Respiratory Distress, Accessory Muscle Use Cardiovascular: Present: Regular Rate and Rhythm, Normal S1, S2. No: Murmurs Abdomen: No: Tenderness, Distention, Peritoneal Signs Back: Present: Normal Inspection. No: CVA Tenderness Upper Extremity: Present: Normal Inspection, Normal ROM, NORMAL PULSES, Neurovascularly Intact. No: Cyanosis, Edema Lower Extremity: Present: Normal Inspection, Edema (LLE only), NORMAL PULSES, Neurovascularly Intact. No: CALF TENDERNESS Neurological: Present: GCS=15, CN II-XII Intact, Speech Normal Skin: Present: Warm, Dry, Normal Color, Erythematous (overlaying abscess), Abscess (Left groin abscess. No crepitus. Fluctuance. Errythema overlaying the abscess. Tender to palpation. ). No: Rashes, Abrasion Psychiatric: Present: Alert, Oriented x 3, Normal Insight, Normal Concentration Medical Decision Making ED Course and Treatment: 03/25/18 19:15 Impression: A 47 year old male presents to the emergency department with a complaint of left groin abscess. Fluctuate noted to L groin over veins /arts. No crepitus of erythema. Pt denies being on any outpt abx. LLE swelling, good neurovascular status w. soft compartments. No discoloration. chest pain or sob. No abd pain or tenderness on exam. Plan: -- Abdomen/Pelvis CT -- EKG -- Labs -- Blood Culture -- Toradol, Reglan, IV Fluids -- Reassess and disposition Progress Notes: 03/25/18 19:34 fluids, abx ordered. surgical device sales representative bedside; recommending CT pending CT 03/25/18 20:28 DVT US negative per tech. 03/25/18 21:10 WBC, lactic unremarkable pending CT results 03/25/18 22:[address] [facility] [address] GAITAN on the phone: CT results Free air RUQ Hepatic abscess L hip destructive changes, L groin abscess spoke to surgical device sales representative regarding findings. Seen by Jones previously, Paged Dr. Goldman Paged surgery regarding free air pt in NAD with VSS protecting airway at this time, in NAD. 03/25/18 22:23 CT ABD & Pelvis CLINICAL HISTORY: Groin abscess. COMPARISON: Correlation is made with prior studies dated 02/21/2018 and 02/23/2018. TECHNIQUE: Multiple axial, coronal, sagittal CT images were obtained through the abdomen and pelvis. Images were obtained before and after IV contrast administration. Oral contrast material was not administered. Omnipaque 350, 100 cc was administered. Study is limited. The patient refused to lie flat. COMMENTS: In the right hepatic subcapsular region, there is evidence of a 15 x 6 cm fluid and air collection consistent with a large abscess; it is new since prior study. There are several bubbles of free intraperitoneal air noted in the right upper quadrant. There is evidence of mild abdominal and pelvic ascites. The liver otherwise is of uniform attenuation without mass or defect. There is no intra or extrahepatic biliary ductal dilatation. The spleen is normal. The gallbladder is not identified with certainty. Please correlate with surgical status. The pancreas is of normal contour and attenuation characteristics. There is no evidence of adrenal mass. Both kidneys demonstrate prompt and equal nephrograms. The kidneys are normal in size, shape, and configuration. There is no evidence of renal or ureteral mass. No renal or ureteral calculi are identified. There is no hydroureter or hydronephrosis. No evidence for appendicitis. There is severe wall thickening noted involving all small bowel segments consistent with enteritis. There is a large amount of fecal material seen especially in rectosigmoid consistent with fecal impaction. There is no evidence of abdominal lymphadenopathy. In the left groin area, there is diffuse swelling with air bubbles consistent with an abscess. Diffuse anasarca is present. There are surgical clips present in the left groin region. Diffuse subcutaneous swelling is noted involving the region of left solomon-pelvis extending to the left lower extremity. There is no evidence of intrinsic or extrinsic bladder mass. There is no pelvic lymphadenopathy. There is consolidation in right middle and right lower lobe compatible with pneumonia. Trace right pleural effusion is seen. There are destructive changes noted at the left hip joint, which may be due to chronic osteomyelitis and septic arthritis; this was present in prior study. IMPRESSION: 1. Right hepatic subcapsular region large abscess, new since prior study. 2. Free air in the right upper quadrant compatible with viscus perforation. 3. Mild abdominal and pelvic ascites. Diffuse anasarca. 4. Severe enteritis. 5. Fecal impaction. 6. Left groin area abscess. 7. Destructive changes noted at the left hip joint, which may be due to chronic osteomyelitis and septic arthritis; this was present in prior study. 8. Diffuse subcutaneous swelling involving the region of left solomon-pelvis extending to the left lower extremity. 9. Consolidation in right middle and right lower lobe compatible with pneumonia. Trace right pleural effusion. 03/25/18 22:[address] Goldman regarding septic joint, no emergent procedure at this time. Spoke to the surgical device sales representative under Dr. Hsu, who will follow the admission, no acute sugical intervention/admission at this time. Spoke to Dr Francisco, who accepts admission under hospitalist service. Pt in NAD, admitted to [facility] for multiple abscess, tachy, septic joint 03/25/18 23:07 EKG reviewed by me, shows: Sinus tachycardia @ 104bpm No STEMI - Lab Interpretations I have reviewed the lab results: Yes - EKG Interpretation Interpreted by ED Physician: Yes Type: 12 lead EKG - Scribe Statement The provider has reviewed the documentation as recorded by the Scribe Mariam Salazar Provider Scribe Attestation: All medical record entries made by the Scribe were at my direction and pers onally dictated by me. I have reviewed the chart and agree that the record accurately reflects my personal performance of the history, physical exam, medical decision making, and the department course for this patient. I have also personally directed, reviewed, and agree with the discharge instructions and disposition. Disposition/Present on Arrival - Present on Arrival Any Indicators Present on Arrival: No History of DVT/PE: No History of Uncontrolled Diabetes: No Urinary Catheter: No History of Decub. Ulcer: No History Surgical Site Infection Following: None - Disposition Have Diagnosis and Disposition been Completed?: Yes Diagnosis: Abscess of groin, left, Hepatic abscess, Septic joint Disposition Time: 19:34 Patient Problems: Current Active Problems Problem Status Onset Abscess of groin, left Acute Condition: STABLE
[2018-03-25] MEDS ORDERED: Piperacillin/Tazobact 3.375 gm 100 ML IVPB STA (19:19)
[2018-03-25] MEDS ORDERED: Vancomycin 1gm in NS 250ml 1 GM/250 ML BAG IVPB STA (19:19)
[2018-03-25 19:46] LABS: BASO # 0.02 K/mm3 (0.0-2.0); BASO % 0.2 % (0.0-3.0); EOS # 0.1 (0.0-0.7); EOS % 0.6 % (1.5-5.0); GRAN # 6.81 (1.4-6.5); GRAN % 75.9 % (50.0-68.0); HEMOGLOBIN 9.2 g/dL (14.0-18.0); LYMPH # 1.3 (1.2-3.4); LYMPH % 14.5 % (22.0-35.0); MEAN CORPUSCULAR HEMOGLOBIN 23.5 pg (25.0-35.0); MEAN CORPUSCULAR HGB CONC 32.2 g/dl (31.0-37.0); MEAN PLATELET VOLUME 8.3 fl (7.0-11.0); MONO # 0.8 (0.1-0.6); MONO % 8.8 % (1.0-6.0); RBC 3.92 10^6/uL (3.5-6.1); RED CELL DISTRIBUTION WIDTH 18.9 % (11.5-14.5)
[2018-03-25 19:56] LABS: VENOUS BLOOD GAS BASE EXCESS 10.9 mmol/L (0.0-2.0); VENOUS BLOOD GAS PO2 78 mm/Hg (30-55); VENOUS BLOOD PH 7.47 (7.32-7.43)
[2018-03-25 20:05] LABS: ALB/GLOB RATIO 0.7 (1.1-1.8); ALBUMIN 3.2 g/dL (3.0-4.8); ALT/SGPT 33 U/L (7-56); AST/SGOT 53 U/L (17-59); BLOOD UREA NITROGEN 13 mg/dL (7-21); CALCIUM 9.2 mg/dL (8.4-10.5); GFR NON-AFRICAN AMERICAN > 60
[2018-03-25] MEDS ORDERED: Iohexol 350 MG/100 ML VIAL ONE (20:16)
--- NOTE | 2018-03-25 22:39 | US ---
HISTORY: Leg pain and swelling. Evaluate for DVT PHYSICIAN(S): David Polanco MD. TECHNIQUE: Duplex sonography and color-flow Doppler with graded compression were used to evaluate the deep venous systems of both lower extremities. The exam is limited by edema FINDINGS: The visualized deep venous systems of both lower extremities are sonographically normal and compressible. Normal wave forms and augmentation are seen. There is no sonographic evidence for deep venous thrombosis in the visualized segments of both lower extremities. IMPRESSION: No sonographic evidence for deep venous thrombosis in the visualized segments of both lower extremities.
--- NOTE | 2018-03-25 23:14 | CP.PCM.CON ---
History of Present Illness - History of Present Illness History of Present Illness: General Surgery consult for Dr. Hsu Consulted for liver abscess patient is a 47 yr old male with PMH septic left hip joint abscess s/p washout (Jan 2018), medication noncompliance, poly-substance abuse on methadone program (10-20 a day), sciatica, Hep C, MRSA bacteremia who presented to [facility] ED with c/o worsening left hip pain over the past few days and NBNB n/v beginning today. Surgery was consulted after liver abscess was found incidentally on CT scan. Patient endorses fevers and chills worsening with his hip pain but denies any abdominal pain, bloating, distention, diarrhea, stool changes. Patient additionally otherwise denies BAUM, CP, SOB, dysuria and extremity weakness/numbness. PMH: septic left hip joint abscess s/p washout (Jan 2018), medication noncompliance, poly-substance abuse on methadone program (10-20 a day), sciatica, Hep C, MRSA bacteremia PSH: R Carpal tunnel release, Left hip washout for septic joint ALL: NKDA Socialhx: 13 pack/yr smoking hx, drinks 2 24oz beers/day, sniffs cocaine and 10 bags/heroin/day. Last used yesterday afternoon (10 bags) FH: non-contributory 12 pt ROS conducted, negative otherwise stated above Review of Systems - Review of Systems All systems: reviewed and no additional remarkable complaints except (as per HPI) Past Patient History - Infectious Disease Hx of Infectious Diseases: None - Past Social History Smoking Status: Heavy Smoker > 10 Cigarettes Daily - CARDIAC Hx Cardiac Disorders: Yes Other/Comment: "infection in the heart". Endocarditis - PULMONARY Hx Respiratory Disorders: Yes Hx Asthma: Yes - NEUROLOGICAL Hx Neurological Disorder: No - HEENT Hx HEENT Problems: No - RENAL Hx Chronic Kidney Disease: No - ENDOCRINE/METABOLIC Hx Endocrine Disorders: Yes Hx Hypothyroidism: Yes - HEMATOLOGICAL/ONCOLOGICAL Hx Blood Transfusions: Yes Hx Blood Transfusion Reaction: No - INTEGUMENTARY Hx Dermatological Problems: No - MUSCULOSKELETAL/RHEUMATOLOGICAL Hx Falls: Yes Hx Osteoarthritis: Yes Other/Comment: sciatica - GASTROINTESTINAL Hx Gastrointestinal Disorders: No - GENITOURINARY/GYNECOLOGICAL Hx Genitourinary Disorders: No - PSYCHIATRIC Hx Substance Use: Yes (Heroin) Other/Comment: drug abuse - SURGICAL HISTORY Hx Surgeries: No - ANESTHESIA Hx Anesthesia Reactions: No Hx Malignant Hyperthermia: No Meds Allergies/Adverse Reactions: Allergies Allergy/AdvReac Type Severity Reaction Status Date / Time No Known Allergies Allergy Unverified 11/17/17 03:09 Physical Exam - Constitutional Appears: Non-toxic, No Acute Distress, Unkempt, Cachectic, Chronically Ill - Head Exam Head Exam: ATRAUMATIC, NORMOCEPHALIC - Eye Exam Eye Exam: EOMI. absent: Scleral icterus - ENT Exam ENT Exam: Mucous Membranes Moist Additional comments: pt missing several teeth due to poor dental hygiene - Respiratory Exam Respiratory Exam: NORMAL BREATHING PATTERN - Cardiovascular Exam Cardiovascular Exam: Tachycardia (101), REGULAR RHYTHM - GI/Abdominal Exam GI & Abdominal Exam: Soft. absent: Distended, Guarding, Rebound, Rigid, Tenderness Additional comments: liver edge is displaced medially - Extremities Exam Extremities exam: Positive for: normal capillary refill, pedal edema (2+ pitting ), pedal pulses present. Negative for: calf tenderness Additional comments: left hip incision cdi well healing, increased lymphadenopathy and edema in left inguinal region, no evidence of fluctuance or fluctuant mass, left hip is tender to palpation over the joint, pain with any ROM, ROM decreased d/t pain in left hip - Neurological Exam Neurological exam: Alert, Oriented x3 - Psychiatric Exam Psychiatric exam: Normal Affect, Normal Mood - Skin Skin Exam: Dry, Intact, Warm Additional comments: mild patchy erythema over the area of lymphadenopathy in the inguinal region, no vesicles, fluctuance or fluctuant mass palpated Results - Vital Signs Recent Vital Signs: Last Vital Signs Temp 99.3 F 03/25/18 18:20 Pulse 108 H 03/25/18 22:13 Resp 18 03/25/18 22:13 BP 138/79 03/25/18 22:13 Pulse Ox 95 03/25/18 22:13 - Labs Result Diagrams: 03/25/18 19:44 03/25/18 19:44 Labs: Laboratory Results - last 24 hr 03/25/18 03/25/18 03/25/18 19:44 19:44 19:44 WBC 9.0 RBC 3.92 Hgb 9.2 L Hct 28.6 L MCV 73.0 L D MCH 23.5 L MCHC 32.2 RDW 18.9 H Plt Count 575 H MPV 8.3 Gran % 75.9 H Lymph % (Auto) 14.5 L [place] % (Auto) 8.8 H Eos % (Auto) 0.6 L Baso % (Auto) 0.2 Gran # 6.81 H Lymph # (Auto) 1.3 [place] # (Auto) 0.8 H Eos # (Auto) 0.1 Baso # (Auto) 0.02 ESR pO2 78 H VBG pH 7.47 H VBG pCO2 50.0 VBG HCO3 36.4 H VBG Total CO2 37.9 H VBG O2 Sat (Calc) 97.8 H VBG Base Excess 10.9 H VBG Potassium 4.0 Sodium 135.0 135 Chloride 96.0 L 93 L Glucose 105 Lactate 1.4 FiO2 21.0 Potassium 3.9 Carbon Dioxide 33 Anion Gap 14 BUN 13 Creatinine 0.4 L Est GFR ( Amer) > 60 Est GFR (Non-Af Amer) > 60 Random Glucose 112 H Calcium 9.2 Magnesium 1.8 Total Bilirubin 0.5 AST 53 ALT 33 Alkaline Phosphatase 138 H D Total Protein 8.1 Albumin 3.2 Globulin 4.9 Albumin/Globulin Ratio 0.7 L Venous Blood Potassium 4.0 03/25/18 21:13 WBC RBC Hgb Hct MCV MCH MCHC RDW Plt Count MPV Gran % Lymph % (Auto) [place] % (Auto) Eos % (Auto) Baso % (Auto) Gran # Lymph # (Auto) [place] # (Auto) Eos # (Auto) Baso # (Auto) ESR 93 H pO2 VBG pH VBG pCO2 VBG HCO3 VBG Total CO2 VBG O2 Sat (Calc) VBG Base Excess VBG Potassium Sodium Chloride Glucose Lactate FiO2 Potassium Carbon Dioxide Anion Gap BUN Creatinine Est GFR ( Amer) Est GFR (Non-Af Amer) Random Glucose Calcium Magnesium Total Bilirubin AST ALT Alkaline Phosphatase Total Protein Albumin Globulin Albumin/Globulin Ratio Venous Blood Potassium Assessment & Plan - Assessment and Plan (Free Text) Assessment: 47 yr old male with Large intracapsular hepatic abscess with air fluid levels Plan: IVF Zofran pain control c/w ABX Colace for constipation on CT on CT air appears to be contained within the liver capsule or within the abscess cavity itself, there does not appear to be free air under the diaphragm Patient presentation/ exam is not consistent with viscus perforation or free air in the peritoneal cavity will continue with serial abdominal exams for any changes Recommend IR consult for possible drainage of abscess/ drain placement NPO Agree with/recommend ortho consult STAT for septic joint heroin withdrawal management per primary team Discussed with Dr. Shadi Mendoza, PGY 1 - Date & Time Date: 03/25/18 Time: 20:10
[2018-03-25] MEDS: Sodium Chloride 0.9% 1,000 ML IV SCH (23:41)
[2018-03-25] MEDS ORDERED: Morphine 2 mg/ml ISec IVP PRN (23:54)
[2018-03-26] MEDS: Meropenem IV 1 gm in NS 1 GM/50 ML BAG IVPB SCH ×2 (00:35→05:54)
[2018-03-26] MEDS: metroNIDAZOLE IV 500 mg/100 ml 500 MG/100 ML BAG IVPB SCH ×2 (00:35→05:54)
--- NOTE | 2018-03-26 03:06 | CP.PCM.HP ---
<ZaidShelby - Last Filed: 03/26/18 07:29> History of Present Illness - History of Present Illness History of Present Illness: Shelby Mar, PGY-1 Medicine H&P for Dr. Francisco: CC: L hip pain Pt is a 47 yo M with pmhx of poly-substance abuse, sciatica, Hep C, L hip septic joint s/p washout who presents to the ED with L hip pain. He reports pain in the L hip pain which has been present since his discharge on 03/01. He states that he was supposed to take abx upon d/c from the hospital but is unsure why he didnt take them, though they were given to him before d/c. He states that today his pain was a 10/10 and could no longer ambulate on his leg. Pt is agitated and is uncooperative with exam. Pt at this time is denying fevers, chills, headache, lightheadedness, chest pain, palpitations, SOB, cough, abd pain, he admits to nausea, vomiting and L hip pain with movement. He also denies dysuria, numbness or tingling in the L leg. Pmhx: poly-substance abuse, sciatica, Hep C Pshx: R carpal tunnel, L hip washout FamH: unknown, adopted SocH: 13 pack/yr smoking hx, drinks 2 24oz beers/day, sniffs cocaine and 10 bags/heroin/day. Last use unknown Allergies: NKDA Meds: none Present on Admission - Present on Admission Any Indicators Present on Admission: No Review of Systems - Review of Systems Review of Systems: 12 point ROS reviewed and negative except mentioned in HPI above. Past Patient History - Infectious Disease Hx of Infectious Diseases: None - Past Social History Smoking Status: Heavy Smoker > 10 Cigarettes Daily - CARDIAC Hx Cardiac Disorders: No Hx Angina: No Hx Cardia Arrhythmia: No Hx Circulatory Problems: No Hx Congestive Heart Failure: No Hx Heart Murmur: No Hx Heart Transplant: No Hx Hypercholesterolemia: No Hx Hypertension: No Hx Internal Defibrillator: No Hx Mitral Valve Prolapse: No Hx Pacemaker: No Hx Peripheral Edema: No Hx Peripheral Vascular Disease: No - PULMONARY Hx Respiratory Disorders: No Hx Asthma: No Hx Bronchitis: No Hx Chronic Obstructive Pulmonary Disease (COPD): No Hx Emphysema: No Hx Pneumonia: No Hx Respiratory Aspiration: No Hx Respiratory Tract Infection: No Hx Sleep Apnea: No Hx Tuberculosis: No - NEUROLOGICAL Hx Neurological Disorder: No Hx Alzheimer's Disease: No HX Cerebrovascular Accident: No Hx Dementia: No Hx Dizziness: No Hx Meningitis: No Hx Migraine: No Hx Parkinson's Disease: No Hx Seizures: No Hx Transient Ischemic Attacks (TIA): No - HEENT Hx HEENT Problems: No Hx Blind: No Hx Cataracts: No Hx Deafness: No Hx Difficulty Chewing: No Hx Epistaxis: No Hx Glaucoma: No Hx Macular Degeneration: No - RENAL Hx Chronic Kidney Disease: No Hx Dialysis: No Hx Kidney Stones: No Hx Neurogenic Bladder: No Hx Pyelonephritis: No Hx Renal (Kidney) Cancer: No Hx Renal Failure: No - ENDOCRINE/METABOLIC Hx Endocrine Disorders: No Hx Adrenal Cancer: No Hx Diabetes Insipidus: No Hx Diabetes Mellitus Type 1: No Hx Diabetes Mellitus Type 2: No Hx Hyperthyroidism: No Hx Hypothyroidism: No Hx Systemic Lupus Erythematosus: No - HEMATOLOGICAL/ONCOLOGICAL Hx Blood Disorders: Yes Hx AIDS: No Hx Anemia: No Hx Cancer: No Hx Chemotherapy: No Hx Cirrhosis: No Hx Hemophilia: No Hx Hepatitis A: No Hx Hepatitis B: No Hx Hepatitis C: Yes Hx Human Immunodeficiency Virus (HIV): No Hx Metastesis: No Hx Shingles: No Hx Sickle Cell Disease: No Hx Unexplained Bleeding: No - INTEGUMENTARY Hx Dermatological Problems: No Hx Basil Cell: No Hx Eczema: No Hx Melanoma: No Hx Psoriasis: No Hx Squamous Cell: No - MUSCULOSKELETAL/RHEUMATOLOGICAL Hx Musculoskeletal Disorders: Yes Hx Arthritis: No Hx Back Pain: No Hx Degenerative Joint Disease: No Hx Falls: No Hx Fractures: No Hx Gout: No Hx Herniated Disk: No Hx Myasthenia Gravis: No Hx Osteoarthritis: No Hx Osteomyelitis: No Hx Osteoporosis: No Hx Rhabdomyolysis: No Hx Spinal Stenosis: No Hx Unsteady Gait: Yes - GASTROINTESTINAL Hx Gastrointestinal Disorders: Yes Hx Colostomy: No Hx Crohn's Disease: No Hx Diverticulitis: No Hx Gall Bladder Disease: No Hx Gastroesophageal Reflux: No Hx Ileostomy: No Hx Liver Failure: No Hx Pancreatitis: No HX Swallowing Problems: No Hx Ulcer: No - GENITOURINARY/GYNECOLOGICAL Hx Genitourinary Disorders: No Hx Hematuria: No Hx Incontinence: No Hx Prostate Problems: No Hx Sexually Transmitted Disorders: No Hx Urinary Tract Infection: No - PSYCHIATRIC Hx Psychophysiologic Disorder: No Hx Anxiety: No Hx Bipolar Disorder: No Hx Depression: No Hx Emotional Abuse: No Hx Hallucinations: No Hx Panic Symptoms: No Hx Paranoia: No Hx Post Traumatic Stress Disorder: No Hx Psychosis: No Hx Physical Abuse: No Hx Schizophrenia: No Hx Sexual Abuse: No Hx Substance Use: Yes (heroin and cocaine abuse) - SURGICAL HISTORY Hx Surgeries: Yes Hx Amputation: No Hx Appendectomy: No Hx Cardiac Catheterization: No Hx Cholecystectomy: No Hx Coronary Stent: No Hx Gastric Bypass Surgery: No Hx Hysterectomy: No Hx Joint Replacement: No Hx Kidney Transplant: No Hx Liver Transplant: No Hx Mastectomy: No Hx Musculoskeletal Surgery: No Hx Open Heart Surgery: No Hx Orthopedic Surgery: No Hx Splenectomy: No Hx Valve Replacement: No - ANESTHESIA Hx Anesthesia Reactions: No Hx Malignant Hyperthermia: No Meds Allergies/Adverse Reactions: Allergies Allergy/AdvReac Type Severity Reaction Status Date / Time No Known Allergies Allergy Unverified 11/17/17 03:09 Physical Exam - Constitutional Appears: Non-toxic, No Acute Distress - Head Exam Head Exam: ATRAUMATIC, NORMAL INSPECTION, NORMOCEPHALIC - Eye Exam Eye Exam: EOMI, Normal appearance, PERRL - Respiratory Exam Respiratory Exam: Clear to Auscultation Bilateral, NORMAL BREATHING PATTERN. absent: Accessory Muscle Use, Decreased Breath Sounds, Rales, Rhonchi, Wheezes, Respiratory Distress, Stridor - Cardiovascular Exam Cardiovascular Exam: RRR, +S1, +S2. absent: Gallop, Rubs, Systolic Murmur - GI/Abdominal Exam GI & Abdominal Exam: Normal Bowel Sounds, Soft. absent: Distended, Firm, G uarding, Tenderness - Extremities Exam Extremities exam: Positive for: normal capillary refill, pedal edema, tenderness (present at L hip upon palpation, pts L leg ROM is limited 2/2 pain. No area of fluctuance or purulent drainage noted on exam.), pedal pulses present. Negative for: calf tenderness - Back Exam Back exam: NORMAL INSPECTION. absent: CVA tenderness (L), CVA tenderness (R) - Neurological Exam Neurological exam: Alert, Oriented x3 - Psychiatric Exam Psychiatric exam: Agitated - Skin Skin Exam: Dry, Intact (except where noted above.), Normal Color, Warm Results - Vital Signs Recent Vital Signs: Last Vital Signs Temp 100 F H 03/25/18 23:15 Pulse 107 H 03/26/18 02:00 Resp 18 03/26/18 00:26 BP 124/71 03/25/18 23:15 Pulse Ox 94 L 03/25/18 23:15 - Labs Result Diagrams: 03/25/18 19:44 03/25/18 19:44 Labs: Laboratory Results - last 24 hr 03/25/18 03/25/18 03/25/18 19:44 19:44 19:44 WBC 9.0 RBC 3.92 Hgb 9.2 L Hct 28.6 L MCV 73.0 L D MCH 23.5 L MCHC 32.2 RDW 18.9 H Plt Count 575 H MPV 8.3 Gran % 75.9 H Lymph % (Auto) 14.5 L [place] % (Auto) 8.8 H Eos % (Auto) 0.6 L Baso % (Auto) 0.2 Gran # 6.81 H Lymph # (Auto) 1.3 [place] # (Auto) 0.8 H Eos # (Auto) 0.1 Baso # (Auto) 0.02 ESR pO2 78 H VBG pH 7.47 H VBG pCO2 50.0 VBG HCO3 36.4 H VBG Total CO2 37.9 H VBG O2 Sat (Calc) 97.8 H VBG Base Excess 10.9 H VBG Potassium 4.0 Sodium 135.0 135 Chloride 96.0 L 93 L Glucose 105 Lactate 1.4 FiO2 21.0 Potassium 3.9 Carbon Dioxide 33 Anion Gap 14 BUN 13 Creatinine 0.4 L Est GFR ( Amer) > 60 Est GFR (Non-Af Amer) > 60 Random Glucose 112 H Lactic Acid Calcium 9.2 Phosphorus Magnesium 1.8 Total Bilirubin 0.5 AST 53 ALT 33 Alkaline Phosphatase 138 H D Troponin I Total Protein 8.1 Albumin 3.2 Globulin 4.9 Albumin/Globulin Ratio 0.7 L Venous Blood Potassium 4.0 Alcohol, Quantitative 03/25/18 03/25/18 03/25/18 21:13 23:30 23:30 WBC RBC Hgb Hct MCV MCH MCHC RDW Plt Count MPV Gran % Lymph % (Auto) [place] % (Auto) Eos % (Auto) Baso % (Auto) Gran # Lymph # (Auto) [place] # (Auto) Eos # (Auto) Baso # (Auto) ESR 93 H pO2 VBG pH VBG pCO2 VBG HCO3 VBG Total CO2 VBG O2 Sat (Calc) VBG Base Excess VBG Potassium Sodium Chloride Glucose Lactate FiO2 Potassium Carbon Dioxide Anion Gap BUN Creatinine Est GFR ( Amer) Est GFR (Non-Af Amer) Random Glucose Lactic Acid Calcium Phosphorus 3.7 Magnesium 1.8 Total Bilirubin AST ALT Alkaline Phosphatase Troponin I < 0.01 Total Protein Albumin Globulin Albumin/Globulin Ratio Venous Blood Potassium Alcohol, Quantitative 03/25/18 03/26/18 23:59 01:55 WBC RBC Hgb Hct MCV MCH MCHC RDW Plt Count MPV Gran % Lymph % (Auto) [place] % (Auto) Eos % (Auto) Baso % (Auto) Gran # Lymph # (Auto) [place] # (Auto) Eos # (Auto) Baso # (Auto) ESR pO2 VBG pH VBG pCO2 VBG HCO3 VBG Total CO2 VBG O2 Sat (Calc) VBG Base Excess VBG Potassium Sodium Chloride Glucose Lactate FiO2 Potassium Carbon Dioxide Anion Gap BUN Creatinine Est GFR ( Amer) Est GFR (Non-Af Amer) Random Glucose Lactic Acid 0.8 Calcium Phosphorus Magnesium Total Bilirubin AST ALT Alkaline Phosphatase Troponin I Total Protein Albumin Globulin Albumin/Globulin Ratio Venous Blood Potassium Alcohol, Quantitative < 10 Assessment & Plan - Assessment and Plan (Free Text) Assessment: Pt is a 47 yo M with pmhx of poly-substance abuse, sciatica, Hep C, L hip septic joint s/p washout who presents to the ED with L hip pain. Abd CT also showed a liver abscess likely 2/2 hematologic spread from septic hip. Plan: 1. Liver abscess: - Likely 2/2 hematologic spread from the L hip abscess - NPO - IR consulted for potential liver drainage - IV Fluids NS @ 100/hr - Vanc, zosyn and flagyl started - ID consulted - Dr. Will - Radhafran 4 q6 PRN 2. L Hip Abscess: - Gen surg consult: Dr. Hsu - Ortho consulted: Dr. Day - Abx as described above - NPO - PT 3. Suspected narcotic drug w/drawl: - Methadone 10 given once - f/u with methadone clinic about pts doseage - Cont to monitor - UDS - EtOH - Ativan PRN for agitation 4. PPx: - GI: Protonix - DVT: SCDs Case seen and discussed with Dr. Nolan Mar, PGY-1 <Igor Francisco - Last Filed: 03/27/18 20:24> Results - Vital Signs Recent Vital Signs: Last Vital Signs Temp 99.7 F H 03/26/18 06:00 Pulse 98 H 03/26/18 06:00 Resp 18 03/26/18 06:00 BP 125/86 03/26/18 06:00 Pulse Ox 96 03/26/18 06:00 - Labs Result Diagrams: 03/27/18 06:45 03/27/18 06:45 Labs: Laboratory Results - last 24 hr 03/25/18 03/25/18 03/25/18 19:44 19:44 19:44 WBC 9.0 RBC 3.92 Hgb 9.2 L Hct 28.6 L MCV 73.0 L D MCH 23.5 L MCHC 32.2 RDW 18.9 H Plt Count 575 H MPV 8.3 Gran % 75.9 H Lymph % (Auto) 14.5 L [place] % (Auto) 8.8 H Eos % (Auto) 0.6 L Baso % (Auto) 0.2 Gran # 6.81 H Lymph # (Auto) 1.3 [place] # (Auto) 0.8 H Eos # (Auto) 0.1 Baso # (Auto) 0.02 ESR pO2 78 H VBG pH 7.47 H VBG pCO2 50.0 VBG HCO3 36.4 H VBG Total CO2 37.9 H VBG O2 Sat (Calc) 97.8 H VBG Base Excess 10.9 H VBG Potassium 4.0 Sodium 135.0 135 Chloride 96.0 L 93 L Glucose 105 Lactate 1.4 FiO2 21.0 Potassium 3.9 Carbon Dioxide 33 Anion Gap 14 BUN 13 Creatinine 0.4 L Est GFR ( Amer) > 60 Est GFR (Non-Af Amer) > 60 Random Glucose 112 H Lactic Acid Calcium 9.2 Phosphorus Magnesium 1.8 Total Bilirubin 0.5 AST 53 ALT 33 Alkaline Phosphatase 138 H D Troponin I Total Protein 8.1 Albumin 3.2 Globulin 4.9 Albumin/Globulin Ratio 0.7 L Venous Blood Potassium 4.0 Alcohol, Quantitative 03/25/18 03/25/18 03/25/18 21:13 23:30 23:30 WBC RBC Hgb Hct MCV MCH MCHC RDW Plt Count MPV Gran % Lymph % (Auto) [place] % (Auto) Eos % (Auto) Baso % (Auto) Gran # Lymph # (Auto) [place] # (Auto) Eos # (Auto) Baso # (Auto) ESR 93 H pO2 VBG pH VBG pCO2 VBG HCO3 VBG Total CO2 VBG O2 Sat (Calc) VBG Base Excess VBG Potassium Sodium Chloride Glucose Lactate FiO2 Potassium Carbon Dioxide Anion Gap BUN Creatinine Est GFR ( Amer) Est GFR (Non-Af Amer) Random Glucose Lactic Acid Calcium Phosphorus 3.7 Magnesium 1.8 Total Bilirubin AST ALT Alkaline Phosphatase Troponin I < 0.01 Total Protein Albumin Globulin Albumin/Globulin Ratio Venous Blood Potassium Alcohol, Quantitative 03/25/18 03/26/18 23:59 01:55 WBC RBC Hgb Hct MCV MCH MCHC RDW Plt Count MPV Gran % Lymph % (Auto) [place] % (Auto) Eos % (Auto) Baso % (Auto) Gran # Lymph # (Auto) [place] # (Auto) Eos # (Auto) Baso # (Auto) ESR pO2 VBG pH VBG pCO2 VBG HCO3 VBG Total CO2 VBG O2 Sat (Calc) VBG Base Excess VBG Potassium Sodium Chloride Glucose Lactate FiO2 Potassium Carbon Dioxide Anion Gap BUN Creatinine Est GFR ( Amer) Est GFR (Non-Af Amer) Random Glucose Lactic Acid 0.8 Calcium Phosphorus Magnesium Total Bilirubin AST ALT Alkaline Phosphatase Troponin I Total Protein Albumin Globulin Albumin/Globulin Ratio Venous Blood Potassium Alcohol, Quantitative < 10 Attending/Attestation - Attestation I have personally seen and examined this patient.: Yes I have fully participated in the care of the patient.: Yes I have reviewed all pertinent clinical information: Yes Notes (Text): 03/26/18 08:06 Agree with history, physical examination, assessment and plan. Medical record was reviewed. Patient seen in bed # 4 in the ER. 47 year old male admitted with CC: Nausea/Vomiting. Left hip pain. Fever 100.3*F Micrcytic anemia-9.2/28.6. [id number]. VBG-NAD. [id number]. Urine drug sc positive for opiates and cocaine. EKG-Sinus tachycardia. EXT US-Neg for DVT. CT Abd/p: Right hepatic subcapsular large abscess. Free air in right uppper quadrant-?viscous perforation. Mild abdominal and pelvic ascites,diffuse anasarca. severe enteritis. Fecal impaction. Left groin area abscess. Left hip joint destructive changes.OM/Septic arthritis. Right ML RLL PNA. PMH: Sciatica. Hepatitis C Substance abuse. Right Carpal Tunnel Syndrome. Heroine abuse. History endocarditits. HLD. Arthritis. History of asthma. History hypothyroidism? Hisory left hip abscess. IVDA. Smoker. Alcohol use Assessment: Vomiting/Nausea. Hepatic abscess. Hip [id number] arthritis. Entertis. Left groin abscess. Urine positive for cocaine and opiates. Right sided PNA ?perforation of abdominal visscous. Plan: NPO. Continue antibiotic. Saline at 100 CC/hr. Analgsic. Antiemetic. GI/DVT prophylaxis. Consultation with ID, Surgery, Ortho, ineteventional radiologist. Troponin stat.
[2018-03-26 08:13] LABS: BASO # 0.02 K/mm3 (0.0-2.0); BASO % 0.2 % (0.0-3.0); GRAN # 6.99 (1.4-6.5); GRAN % 78.1 % (50.0-68.0); HEMOGLOBIN 8.7 g/dL (14.0-18.0); LYMPH # 1.2 (1.2-3.4); LYMPH % 13.6 % (22.0-35.0); MEAN CELL VOLUME 72.4 fl (80.0-105.0); MEAN CORPUSCULAR HEMOGLOBIN 22.8 pg (25.0-35.0); MEAN CORPUSCULAR HGB CONC 31.5 g/dl (31.0-37.0); MEAN PLATELET VOLUME 7.9 fl (7.0-11.0); MONO # 0.7 (0.1-0.6); MONO % 8.1 % (1.0-6.0); RBC 3.81 10^6/uL (3.5-6.1); RED CELL DISTRIBUTION WIDTH 18.7 % (11.5-14.5)
[2018-03-26 08:22] LABS: TROPONIN I < 0.01 ng/mL
[2018-03-26 08:36] LABS: ALB/GLOB RATIO 0.6 (1.1-1.8); ALBUMIN 2.7 g/dL (3.0-4.8); ALT/SGPT 30 U/L (7-56); AST/SGOT 41 U/L (17-59); BLOOD UREA NITROGEN 14 mg/dL (7-21); CALCIUM 8.1 mg/dL (8.4-10.5); GFR NON-AFRICAN AMERICAN > 60
--- NOTE | 2018-03-26 11:19 | CT ---
Date of service: 03/25/2018 PROCEDURE: CT Abdomen and Pelvis with contrast HISTORY: L groin abscess COMPARISON: CT scan of the abdomen and pelvis dated 02/23/2018 TECHNIQUE: Contrast dose: 100 mL Omnipaque 350 Radiation dose: Total exam DLP = 630.35 mGy-cm. This CT exam was performed using one or more of the following dose reduction techniques: Automated exposure control, adjustment of the mA and/or kV according to patient size, and/or use of iterative reconstruction technique. FINDINGS: LOWER THORAX: Right middle and lower lobe patchy infiltrates. LIVER: 20.0 x 9.3 cm air and fluid-filled subcapsular collection. No gross lesion or ductal dilatation. GALLBLADDER AND BILE DUCTS: Unremarkable. PANCREAS: Unremarkable. No gross lesion or ductal dilatation. SPLEEN: Unremarkable. ADRENALS: Unremarkable. No mass. KIDNEYS AND URETERS: Unremarkable. No hydronephrosis. No solid mass. VASCULATURE: Unremarkable. No aortic aneurysm. No aortic atherosclerotic calcification or mural plaque present. BOWEL: Unremarkable. No obstruction. No gross mural thickening. APPENDIX: Normal appendix. PERITONEUM: A few foci of intraperitoneal perihepatic air. Left groin air and fluid-filled collection measuring 4.1 x 2.7 cm. Left groin surgical clips. LYMPH NODES: Unremarkable. No enlarged lymph nodes. BLADDER: Unremarkable. REPRODUCTIVE: Unremarkable. BONES: Destructive changes at the left hip joint related to chronic osteomyelitis and septic arthritis.. OTHER FINDINGS: None. IMPRESSION: Large 20.0 x 9.3 cm subcapsular hepatic abscess. Few tiny foci of air in the right upper quadrant which may be intraperitoneal. Left groin 4.1 x 2.7 cm abscess. Chronic osteomyelitis and septic arthritis of the left hip.
[2018-03-26] MEDS: Sodium Chloride 0.9% 1,000 ML IV SCH ×2 (11:39→20:00)
--- NOTE | 2018-03-26 14:13 | CON ---
DATE: 03/26/2018 The patient seen in room 265, bed 2 earlier today. CHIEF COMPLAINT: Weakness times several days. HISTORY OF PRESENT ILLNESS: The patient is a 47-year-old male who is an active intravenous drug abuser, currently still using right up to the time of admission, has a left groin abscess, which was drained here, who is now admitted, complaining of weakness, pain in abdomen. No fevers, no chills, no headaches, no dizziness, no chest pain, no shortness of breath, no dyspnea on exertion, no diarrhea, no dysuria or frequency, and his abdominal pain is nonspecific. He is complaining of pain in the hip too, also nonspecific. PAST MEDICAL HISTORY: Significant for intravenous drug abuser, actively shooting up to 2 days prior to admission, also sciatica, hepatitis C, left groin abscess. PAST SURGICAL HISTORY: Significant for a left groin I&D. SOCIAL HISTORY: He snorts cocaine and intravenous heroin, smokes cigarettes, drinks beer. Last admission was 02/21/2018. ALLERGIES: THE PATIENT HAS NO KNOWN ALLERGIES. MEDICATIONS AT HOME: The patient is questionable only on Cipro. PHYSICAL EXAMINATION: GENERAL: The patient is in bed, in no acute distress, somewhat uncooperative with the history. VITAL SIGNS: Temperature of 100, pulse of 107, respiratory rate of 18, blood pressure is 124/70. HEENT: Unremarkable. NECK: Supple. LUNGS: Have decreased breath sounds. HEART: Normal S1 and S2. ABDOMEN: Soft, nontender. On examination of groin area, it is clean. The wound is clean. No evidence of infection. LABORATORY EXAMINATION: Reveals a white count of 9, hemoglobin of 9. Chemistries are noted. Alk phos is elevated. Microbiology is pending. Blood cultures are sent. MRSA screen has been sent. Microbiology from previous in the left groin from 02/22/2018 showed MRSA. The patient has had MRSA bacteremia in 10/2017, also had Klebsiella bacteremia at the same time. The patient is currently on Flagyl, vancomycin, and Zosyn was given. History and physical examination by Dr. Shayne العلي is noted and reviewed. According to this doctor, the patient had a CAT scan, which showed a liver abscess. CAT scan result is not available and the patient also has an ultrasound in the lower extremities, no DVT. Consult by is noted and reviewed. ASSESSMENT AND PLAN: This is a 47-year-old male who is admitted with abdominal pain, questionable low-grade fever of 100, who is not toxic, has no white count. On CAT scan, he is discovered to have a liver abscess. We will hold off antibiotics for now pending invasive radiology evaluation. History of methicillin-resistant Staphylococcus aureus bacteremia methicillin-resistant Staphylococcus aureus, liver abscess. The patient also had Klebsiella at the same time that was however in 10/2017. Methicillin-resistant Staphylococcus aureus in the groin could have been possible also resulting in blood cultures were negative, it would have been hematogenous #1 cause of a liver abscess is gallbladder disease. The patient has a slightly elevated alkaline phosphatase. We will review the CAT scan of the abdomen and the patient is an HIV negative as of 01/2018, hepatitis C positive. We will hold off antibiotics for now, he is to have HIV repeated since he is again intravenous drug abuser. No antibiotics for now until invasive radiology reviews the CAT scan and directs us regarding possible CT-guided aspiration, awaiting for a CAT scan result. We will follow with you. Ty Will MD
--- NOTE | 2018-03-26 17:34 | CARD ---
APPROVED REPORT Date of service: 03/26/2018 EKG Measurement Heart [id number] <Conclusion> Normal sinus rhythm Normal ECG
[2018-03-26 21:11] LABS: BARBITURATES, UR NEGATIVE (NEGATIVE); BENZODIAZEPINES, UR NEGATIVE (NEGATIVE); OPIATES, UR POSITIVE (NEGATIVE); PHENCYCLIDINE, UR NEGATIVE (NEGATIVE)
--- NOTE | 2018-03-26 23:00 | CARD ---
APPROVED REPORT Date of service: 03/25/2018 EKG Measurement Heart [id number] <Conclusion> Sinus tachycardia Otherwise normal ECG
[2018-03-27 07:12] LABS: BASO # 0.01 K/mm3 (0.0-2.0); BASO % 0.1 % (0.0-3.0); EOS % 0.1 % (1.5-5.0); GRAN # 6.22 (1.4-6.5); GRAN % 70.3 % (50.0-68.0); HEMOGLOBIN 8.6 g/dL (14.0-18.0); LYMPH # 1.7 (1.2-3.4); LYMPH % 19.3 % (22.0-35.0); MEAN CELL VOLUME 72.8 fl (80.0-105.0); MEAN CORPUSCULAR HEMOGLOBIN 22.7 pg (25.0-35.0); MEAN CORPUSCULAR HGB CONC 31.2 g/dl (31.0-37.0); MEAN PLATELET VOLUME 7.9 fl (7.0-11.0); MONO # 0.9 (0.1-0.6); MONO % 10.2 % (1.0-6.0); RBC 3.79 10^6/uL (3.5-6.1); RED CELL DISTRIBUTION WIDTH 19.1 % (11.5-14.5); WHITE BLOOD COUNT 8.9 10^3/uL (4.5-11.0)
[2018-03-27 07:20] LABS: INR 1.25; PARTIAL THROMBOPLASTIN TIME 26.5 Seconds (25.1-36.5); PROTHROMBIN TIME 14.4 SECONDS (9.4-12.5)
[2018-03-27 07:26] LABS: ALB/GLOB RATIO 0.7 (1.1-1.8); ALBUMIN 2.7 g/dL (3.0-4.8); ALT/SGPT 34 U/L (7-56); AST/SGOT 39 U/L (17-59); BLOOD UREA NITROGEN 15 mg/dL (7-21); CALCIUM 8.3 mg/dL (8.4-10.5); GFR NON-AFRICAN AMERICAN > 60
--- NOTE | 2018-03-27 08:48 | RAD ---
Date of service: 03/26/2018 HISTORY: r/o infiltrate COMPARISON: Chest radiograph dated 02/21/2018 FINDINGS: LUNGS: Right basilar atelectasis and/or infiltrate. PLEURA: Small to moderate right pleural effusion. No pneumothorax. CARDIOVASCULAR: No aortic atherosclerotic calcification present. Normal cardiac size. No pulmonary vascular congestion. OSSEOUS STRUCTURES: No significant abnormalities. VISUALIZED UPPER ABDOMEN: Normal. OTHER FINDINGS: None. IMPRESSION: Small to moderate right effusion with associated atelectasis and/or infiltrate.
--- NOTE | 2018-03-27 09:40 | CP.PCM.PN ---
Subjective - Date & Time of Evaluation Date of Evaluation: 03/27/18 Time of Evaluation: 06:50 - Subjective Subjective: Surgery progress note for Dr. Hsu Pt seen and examined at bedside this AM. Patient states his abdominal pain is much improved, denies nausea, vomiting or fevers. States he has some pain in his left groin but denies any numbness, tingling in the extremity, or drainage from the site Objective - Vital Signs/Intake and Output Vital Signs (last 24 hours): Temp Pulse Resp BP Pulse Ox 99.0 F 86 20 128/70 94 L 03/27/18 06:00 03/27/18 06:00 03/27/18 06:00 03/27/18 06:00 03/27/18 06:00 Intake and Output: 03/27/18 03/27/18 06:59 18:59 Intake Total 1200 Balance 1200 - Medications Medications: Current Medications Acetaminophen (Tylenol 325mg Tab) 650 mg PO Q6H PRN PRN Reason: Fever >100.4 F Docusate Sodium (Colace) 100 mg PO DAILY [facility] Last Admin: 03/26/18 11:37 Dose: Not Given Sodium Chloride (Sodium Chloride 0.9%) 1,000 mls @ 100 mls/hr IV .Q10H [facility] Last Admin: 03/26/18 20:00 Dose: Not Given Lorazepam (Ativan) 2 mg IVP Q4H PRN; Protocol PRN Reason: withdrawal Morphine Sulfate (Morphine) 2 mg IVP Q4H PRN PRN Reason: Pain, moderate (4-7) Last Admin: 03/26/18 00:55 Dose: 2 mg Ondansetron HCl (Zofran Inj) 4 mg IVP Q6H PRN PRN Reason: Nausea/Vomiting Last Admin: 03/26/18 07:03 Dose: 4 mg Pantoprazole Sodium (Protonix Inj) 40 mg IVP DAILY [facility] Last Admin: 03/26/18 09:05 Dose: 40 mg - Labs Labs: 03/27/18 06:45 03/27/18 06:45 PT 14.4 SECONDS (9.4-12.5) H 03/27/18 06:45 INR 1.25 03/27/18 06:45 APTT 26.5 Seconds (25.1-36.5) 12/30/18 06:45 - Constitutional Appears: Well, Non-toxic, No Acute Distress - Head Exam Head Exam: ATRAUMATIC, NORMOCEPHALIC - Eye Exam Eye Exam: Normal appearance. absent: Conjunctival injection, Scleral icterus - ENT Exam ENT Exam: Mucous Membranes Moist, Normal Oropharynx - Respiratory Exam Respiratory Exam: absent: Accessory Muscle Use, Respiratory Distress - Cardiovascular Exam Cardiovascular Exam: RRR - GI/Abdominal Exam GI & Abdominal Exam: Soft, Organomegaly (hepatomegaly). absent: Distended, Tenderness - Extremities Exam Additional comments: left groin/upper inner thigh with mild erythema and subcutaneous induration, tender to palpation but with no fluctuance - Neurological Exam Neurological Exam: Alert, Awake, Oriented x3 - Psychiatric Exam Psychiatric exam: Normal Affect, Normal Mood - Skin Skin Exam: Dry, Intact, Warm Assessment and Plan - Assessment and Plan (Free Text) Assessment: 47M with PMH of current IVDA with large hepatic abscess and left hip abscess Plan: Trend CBC F/U ID, IR, and ortho recs F/U IR percutaneous drainage Antibiotic management per ID F/U culture of fluid after drainage PRN pain medication IV fluids NPO for procedure but may resume diet afterwards if cleared by IR Discussed with Dr. Hsu, who agrees with above Rosalva Clarke, PGY2
[2018-03-27] MEDS ORDERED: Potassium Chloride 20 mEq ER Tab PO ONE (10:57)
--- NOTE | 2018-03-27 11:11 | CP.PCM.PN ---
<Arcenio Santana - Last Filed: 03/27/18 10:52> Subjective - Date & Time of Evaluation Date of Evaluation: 03/27/18 Time of Evaluation: 10:52 - Subjective Subjective: PGY-2 medicine progress note for Dr Mata No acute events noted overnight. Patient maintained NPO for hepatic abscess drainage today. Patient was AAOx3. Complained of left hip pain. Denied bleeding or pus drainage. Denied fevers/chills/n/v/d. Objective - Vital Signs/Intake and Output Vital Signs (last 24 hours): Temp Pulse Resp BP Pulse Ox 99.0 F 86 20 128/70 94 L 03/27/18 06:00 03/27/18 06:00 03/27/18 06:00 03/27/18 06:00 03/27/18 06:00 Intake and Output: 03/27/18 03/27/18 06:59 18:59 Intake Total 1200 Balance 1200 - Medications Medications: Current Medications Acetaminophen (Tylenol 325mg Tab) 650 mg PO Q6H PRN PRN Reason: Fever >100.4 F Docusate Sodium (Colace) 100 mg PO DAILY [facility] Last Admin: 03/26/18 11:37 Dose: Not Given Sodium Chloride (Sodium Chloride 0.9%) 1,000 mls @ 100 mls/hr IV .Q10H [facility] Last Admin: 03/26/18 20:00 Dose: Not Given Lorazepam (Ativan) 2 mg IVP Q4H PRN; Protocol PRN Reason: withdrawal Morphine Sulfate (Morphine) 2 mg IVP Q4H PRN PRN Reason: Pain, moderate (4-7) Last Admin: 03/26/18 00:55 Dose: 2 mg Ondansetron HCl (Zofran Inj) 4 mg IVP Q6H PRN PRN Reason: Nausea/Vomiting Last Admin: 03/26/18 07:03 Dose: 4 mg Pantoprazole Sodium (Protonix Inj) 40 mg IVP DAILY [facility] Last Admin: 03/26/18 09:05 Dose: 40 mg - Labs Labs: 03/27/18 06:45 03/27/18 06:45 PT 14.4 SECONDS (9.4-12.5) H 03/27/18 06:45 INR 1.25 03/27/18 06:45 APTT 26.5 Seconds (25.1-36.5) 03/27/18 06:45 - Additional Findings Additional findings: - Constitutional Appears: Non-toxic, No Acute Distress - Head Exam Head Exam: ATRAUMATIC, NORMAL INSPECTION, NORMOCEPHALIC - Eye Exam Eye Exam: EOMI, Normal appearance, PERRL - Respiratory Exam Respiratory Exam: Clear to Auscultation Bilateral, NORMAL BREATHING PATTERN. absent: Accessory Muscle Use, Decreased Breath Sounds, Rales, Rhonchi, Wheezes, Respiratory Distress, Stridor - Cardiovascular Exam Cardiovascular Exam: RRR, +S1, +S2. absent: Gallop, Rubs, Systolic Murmur - GI/Abdominal Exam GI & Abdominal Exam: Normal Bowel Sounds, Soft. absent: Distended, Firm, Guarding, Tenderness - Extremities Exam Extremities exam: Positive for: normal capillary refill, pedal edema, tenderness (present at L hip upon palpation, pts L leg ROM is limited 2/2 pain. No area of fluctuance or purulent drainage noted on exam.), pedal pulses present. Negative for: calf tenderness - Back Exam Back exam: NORMAL INSPECTION. absent: CVA tenderness (L), CVA tenderness (R) - Neurological Exam Neurological exam: Alert, Oriented x3 - Psychiatric Exam Psychiatric exam: Agitated - Skin Skin Exam: Dry, Intact (except where noted above.), Normal Color, Warm Assessment and Plan - Assessment and Plan (Free Text) Plan: Pt is a 47 yo M with pmhx of poly-substance abuse, sciatica, Hep C, L hip septic joint s/p washout who presents to the ED with L hip pain. Abd CT also showed a liver abscess likely 2/2 hematologic spread from septic hip. Plan: Liver abscess - Likely 2/2 hematologic spread from the L hip abscess - NPO - IR consulted for abscess drainage * Dr Rondon to perform hepatic abscess drainage today at 11AM - IV Fluids NS @ 100/hr - Vanc, zosyn and flagyl have been discontinued by ID - ID consulted - Dr. Will * No abx for now until IR reviews CAT scan and directs us regarding aspiration - Zofran 4mg q6 PRN - Blood Cx 03/25 negative up to date - CT abd/pelvis w/ IV contrast 03/25: * Large 20.0 x 9.3 cm subcapsular hepatic abscess. Few tiny foci of air in the right upper quadrant which may be intraperitoneal.Left groin 4.1 x 2.7 cm abscess. Chronic osteomyelitis and septic arthritis of the left hip. L Hip Abscess - Gen surg consult: Dr. Hsu * Recommend IR consult for possible drainage of abscess/ drain placement - Ortho consulted: Dr. Day * Performed left hip I&D on previous admission on 02/22/18 - As per ID, No abx for now until IR reviews CAT scan and directs us regarding aspiration - PT screen - Blood Cx 03/25 negative up to date - LE Duplex - No DVT - CT abd/pelvis w/ IV contrast 03/25: * Large 20.0 x 9.3 cm subcapsular hepatic abscess. Few tiny foci of air in the right upper quadrant which may be intraperitoneal.Left groin 4.1 x 2.7 cm absc ess. Chronic osteomyelitis and septic arthritis of the left hip. Left Groin Abscess - CT abd/pelvis w/ IV contrast 03/25: * Large 20.0 x 9.3 cm subcapsular hepatic abscess. Few tiny foci of air in the right upper quadrant which may be intraperitoneal.Left groin 4.1 x 2.7 cm abscess. Chronic osteomyelitis and septic arthritis of the left hip. - As per ID, No abx for now until IR reviews CAT scan and directs us regarding aspiration Hx of Hep C - Hep C reactive on 01/2018 - F/U repeat HIV (previous HIV negative however patient is again with IVDA Suspected narcotic drug withdrawl - Methadone 10 given once - Holding methadone for now as patient needs to be alert prior to hepatic drainage - If withdrawal symptoms occur can consider restarting methadone dose (self reported to be 10mg) will need to confirm with clinic - UDS positive for opiates and methadone - Ativan 2mg ivp q4h PRN for agitation PPx: - GI: Protonix - DVT: SCDs - Start AC after hepatic abscess drainage if no further surgeries planned Seen and discussed with Dr. Mata <Rachel Mata - Last Filed: 03/27/18 15:43> Objective - Vital Signs/Intake and Output Vital Signs (last 24 hours): Temp Pulse Resp BP Pulse Ox 99.7 F H 65 19 120/77 94 L 03/27/18 12:00 03/27/18 12:00 03/27/18 12:00 03/27/18 12:00 03/27/18 06:00 Intake and Output: 03/27/18 03/27/18 06:59 18:59 Intake Total 1200 Balance 1200 - Medications Medications: Current Medications Acetaminophen (Tylenol 325mg Tab) 650 mg PO Q6H PRN PRN Reason: Fever >100.4 F Docusate Sodium (Colace) 100 mg PO DAILY [facility] Last Admin: 03/27/18 11:40 Dose: Not Given Sodium Chloride (Sodium Chloride 0.9%) 1,000 mls @ 100 mls/hr IV .Q10H [facility] Last Admin: 03/27/18 12:46 Dose: Not Given Ondansetron HCl (Zofran Inj) 4 mg IVP Q6H PRN PRN Reason: Nausea/Vomiting Last Admin: 03/26/18 07:03 Dose: 4 mg Pantoprazole Sodium (Protonix Inj) 40 mg IVP DAILY [facility] Last Admin: 03/27/18 10:45 Dose: 40 mg - Labs Labs: 03/27/18 06:45 03/27/18 06:45 PT 14.4 SECONDS (9.4-12.5) H 03/27/18 06:45 INR 1.25 03/27/18 06:45 APTT 26.5 Seconds (25.1-36.5) 03/27/18 06:45 Attending/Attestation - Attestation I have personally seen and examined this patient.: Yes I have fully participated in the care of the patient.: Yes I have reviewed all pertinent clinical information, including history, physical exam and plan: Yes Notes (Text): 03/27/18 15:22 attending note; Patient seen and examined with resident this morning. Patient agreed for hepatic collection drainage and pigtail catheter placement. Denies any fevers and chills. Denies any nausea, vomiting. Nothing by mouth for the procedure. Patient is a 47-year-old male with a past medical history of poly-substance abuse, sciatica, Hep C, L hip septic joint s/p washout is admitted for hip pain. He reports pain in the L hip pain which has been present since his discharge on 03/01. He states that he was supposed to take antibiotics prescribed upon discharge/delivered to the bedside upon discharge from the hospital. patient did not take by mouth ciprofloxacin. Did not take IV Dalvance as prescribed. 1. subcapsular hepatic abscess; CT abdomen and pelvis showed Large 20.0 x 9.3 cm subcapsular hepatic abscess. Few tiny foci of air in the right upper quadrant which may be intraperitoneal.Left groin 4.1 x 2.7 cm abscess. Chronic osteomyelitis and septic arthritis of the left hip. case discussed with Intervention radiologist Dr. Rondon in detail. plan for incision and drainage and pigtail catheter placement today. Patient is nothing by mouth. Patient already signed the consent for the procedure yesterday. history of MRSA in the past; currently antibiotics on hold till abscess drainage. ID evaluation appreciated. 2. Suspected free air; less likely perforation. surgery evaluation appreciated. Patient's abdomen is benign. CT scan reviewed with intervention radiologist. 2. Left hip pain; status post incision and washout during last admission. Incision site is clean. case discussed with Dr. Day in detail. Recommend intervention radiology follow-up. 3.History of polysubstance abuse; complete drug abuse cessation is strongly advised. Patient is using IV heroin. Monitor for withdrawal symptoms. 4. Pain management with morphine when necessary only. addendum; drainage of the hepatic abscess was canceled because patient told the anesthesiologist that he drank a cup of water. we will plan for drainage tomorrow. Nothing by mouth past midnight.
[2018-03-27] MEDS ORDERED: Midazolam 2 MG/2 ML VIAL ONE (12:01)
[2018-03-27] MEDS: Sodium Chloride 0.9% 1,000 ML IV SCH (12:46)
[2018-03-27] MEDS ORDERED: Lidocaine 1% Inj (20ml) ONE (12:51)
--- NOTE | 2018-03-27 13:09 | PCM.IRP ---
Objective - Vital Signs/Intake and Output Vital Signs (last 24 hours): Vital Signs - 24 hr 03/26/18 03/26/18 03/26/18 14:00 18:00 22:00 Temperature 98 F Pulse Rate 86 85 91 H Respiratory 18 Rate Blood Pressure 123/83 O2 Sat by Pulse 97 Oximetry 03/27/18 03/27/18 03/27/18 00:01 02:00 06:00 Temperature 99.1 F 99.0 F Pulse Rate 89 91 H 78 Respiratory 20 20 Rate Blood Pressure 133/76 128/70 O2 Sat by Pulse 96 94 L Oximetry 03/27/18 03/27/18 10:00 12:00 Temperature 99.7 F H Pulse Rate 78 65 Respiratory 19 Rate Blood Pressure 120/77 O2 Sat by Pulse Oximetry Intake and Output (last 12 hours): Intake & Output 03/26/18 03/27/18 03/27/18 18:59 06:59 18:59 Intake Total 1200 Balance 1200 Weight 136 lb 136 lb Intake: IV 1200 Left Antecubital 1200 Oral 0 Other: # Voids Urine, Voided 1 # Bowel Movements 2 - Medications Medications: Current Medications Acetaminophen (Tylenol 325mg Tab) 650 mg PO Q6H PRN PRN Reason: Fever >100.4 F Docusate Sodium (Colace) 100 mg PO DAILY [facility] Last Admin: 03/27/18 11:40 Dose: Not Given Sodium Chloride (Sodium Chloride 0.9%) 1,000 mls @ 100 mls/hr IV .Q10H [facility] Last Admin: 03/27/18 12:46 Dose: Not Given Lorazepam (Ativan) 2 mg IVP Q4H PRN; Protocol PRN Reason: withdrawal Morphine Sulfate (Morphine) 2 mg IVP Q4H PRN PRN Reason: Pain, moderate (4-7) Last Admin: 03/26/18 00:55 Dose: 2 mg Ondansetron HCl (Zofran Inj) 4 mg IVP Q6H PRN PRN Reason: Nausea/Vomiting Last Admin: 03/26/18 07:03 Dose: 4 mg Pantoprazole Sodium (Protonix Inj) 40 mg IVP DAILY [facility] Last Admin: 03/27/18 10:45 Dose: 40 mg - Labs Labs (last 24 hours): Laboratory Results - last 24 hr 03/26/18 03/26/18 03/27/18 10:00 12:00 06:45 WBC 8.9 RBC 3.79 Hgb 8.6 L Hct 27.6 L MCV 72.8 L MCH 22.7 L MCHC 31.2 RDW 19.1 H Plt Count 651 H MPV 7.9 Gran % 70.3 H Lymph % (Auto) 19.3 L Sutton % (Auto) 10.2 H Eos % (Auto) 0.1 L Baso % (Auto) 0.1 Gran # 6.22 Lymph # (Auto) 1.7 Sutton # (Auto) 0.9 H Eos # (Auto) 0.0 Baso # (Auto) 0.01 PT INR APTT Sodium Potassium Chloride Carbon Dioxide Anion Gap BUN Creatinine Est GFR ( Amer) Est GFR (Non-Af Amer) Random Glucose Calcium Total Bilirubin AST ALT Alkaline Phosphatase Total Protein Albumin Globulin Albumin/Globulin Ratio Urine Opiates Screen Positive H Urine Methadone Screen Positive H Ur Barbiturates Screen Negative Ur Phencyclidine Scrn Negative Ur Amphetamines Screen Negative U Benzodiazepines Scrn Negative U Oth Cocaine Metabols positive U Cannabinoids Screen Negative Blood Type A POSITIVE Antibody Screen Negative BBK History Checked Patient has bt 03/27/18 03/27/18 06:45 06:45 WBC RBC Hgb Hct MCV MCH MCHC RDW Plt Count MPV Gran % Lymph % (Auto) Sutton % (Auto) Eos % (Auto) Baso % (Auto) Gran # Lymph # (Auto) Sutton # (Auto) Eos # (Auto) Baso # (Auto) PT 14.4 H INR 1.25 APTT 26.5 Sodium 134 Potassium 3.3 L Chloride 95 L Carbon Dioxide 32 Anion Gap 11 BUN 15 Creatinine 0.5 L Est GFR ( Amer) > 60 Est GFR (Non-Af Amer) > 60 Random Glucose 93 Calcium 8.3 L Total Bilirubin 0.3 AST 39 ALT 34 Alkaline Phosphatase 89 Total Protein 6.9 Albumin 2.7 L Globulin 4.2 Albumin/Globulin Ratio 0.7 L Urine Opiates Screen Urine Methadone Screen Ur Barbiturates Screen Ur Phencyclidine Scrn Ur Amphetamines Screen U Benzodiazepines Scrn U Oth Cocaine Metabols U Cannabinoids Screen Blood Type Antibody Screen BBK History Checked Assessment/Plan - Assessment and Plan (Free Text) Assessment: 47 y/o male with large hepatic collection was scheduled to undergo image guided drainage today. Before the procedure the patient reported that he drank a full cup of water. The attending anesthesiologist thought this to be a contraindication for any kind of sedation. The patient was informed about this. He was told that the procedure can be performed with local anesthesia, to which he refused. The patient was informed about the risks of delaying the procedure. However he continued to refuse the procedure under local anesthesia. The OR nurse and the attending anesthesiologist were witness to the conversation with the patient. Plan: Image guided drainage with sedation when the patient presents with no contraindications.
[2018-03-27] MEDS ORDERED: Potassium Chloride 20 mEq ER Tab PO STA (15:35)
--- NOTE | 2018-03-27 16:23 | PN ---
DATE: 03/27/2018 SUBJECTIVE: The patient is in bed, seen earlier today in 265, bed 2, is comfortable. He is examined. No fevers and no chills. No abdominal pain this morning. PHYSICAL EXAMINATION: VITAL SIGNS: Temperature is 99, blood pressure is 128/70, respiratory rate of 20, heart rate of 78. HEENT: Unremarkable. NECK: Supple. LUNGS: Decreased breath sounds. HEART: Normal S1, S2. ABDOMEN: Soft, nontender. LABORATORY DATA: Laboratory examination reveals a white count of 8.9. Chemistries are noted. Toxicology is positive for methadone, opiates and cocaine. Microbiology reveals the blood cultures are negative. Nares screen is negative. Review of orders reveals the patient to be off of antibiotics at this time. Review of microbiology reveals the left arm abscess is MRSA. The blood cultures from January and February are old, no growth. The patient did have a positive blood culture with MRSA and Klebsiella that was in 11/17/2017. The patient's chest x-ray is atelectasis. CAT scan report large 20 x 9 cm subcapsular hepatic abscess, few tiny foci air in right upper quadrant and a 4 x 2.7 cm abscess, questionable chronic osteo and septic arthritis of left hip. progress note is reviewed and Dr. Clarke' note is also reviewed. ASSESSMENT AND PLAN: A 47-year-old male who is an active intravenous drug abuser who had left groin abscess with methicillin-resistant Staphylococcus aureus, did not have methicillin-resistant Staphylococcus aureus bacteremia on the last admission, however, he did have methicillin-resistant Staphylococcus aureus and Klebsiella bacteremia in 11/17/2017, who is now admitted with pain, was not toxic, was comfortable and who was found to have a liver abscess on CAT scan. We will also off on antibiotics pending the IR guided CT-guided aspiration and sent for cultures and the patient who is an active intravenous drug abuser may have more than one organism. We will empirically start antibiotics after the aspiration pending culture results and we will also check on the final blood cultures which are reported to be negative at 24 hours at this point. Ty Will MD [facility] # [id number]
[2018-03-28] MEDS: Sodium Chloride 0.9% 1,000 ML IV SCH (00:06)
[2018-03-28 07:13] LABS: BASO # 0.01 K/mm3 (0.0-2.0); BASO % 0.1 % (0.0-3.0); EOS % 0.4 % (1.5-5.0); GRAN # 5.79 (1.4-6.5); GRAN % 69.5 % (50.0-68.0); HEMOGLOBIN 8.6 g/dL (14.0-18.0); LYMPH # 1.7 (1.2-3.4); MEAN CELL VOLUME 72.2 fl (80.0-105.0); MEAN CORPUSCULAR HEMOGLOBIN 22.8 pg (25.0-35.0); MEAN CORPUSCULAR HGB CONC 31.5 g/dl (31.0-37.0); MEAN PLATELET VOLUME 7.9 fl (7.0-11.0); MONO # 0.8 (0.1-0.6); RBC 3.78 10^6/uL (3.5-6.1); RED CELL DISTRIBUTION WIDTH 19.1 % (11.5-14.5); WHITE BLOOD COUNT 8.3 10^3/uL (4.5-11.0)
[2018-03-28 07:19] LABS: INR 1.23; PARTIAL THROMBOPLASTIN TIME 26.1 Seconds (25.1-36.5); PROTHROMBIN TIME 14.2 SECONDS (9.4-12.5)
[2018-03-28 07:28] LABS: ALB/GLOB RATIO 0.6 (1.1-1.8); ALBUMIN 2.5 g/dL (3.0-4.8); ALT/SGPT 34 U/L (7-56); AST/SGOT 40 U/L (17-59); BLOOD UREA NITROGEN 14 mg/dL (7-21); CALCIUM 8.1 mg/dL (8.4-10.5); GFR NON-AFRICAN AMERICAN > 60
[2018-03-28] MEDS ORDERED: Potassium Chloride 20 mEq ER Tab PO STA (08:02)
--- NOTE | 2018-03-28 08:12 | CP.PCM.PN ---
Subjective - Date & Time of Evaluation Date of Evaluation: 03/28/18 Time of Evaluation: 08:09 - Subjective Subjective: Surgery Progress note- Dr. Hsu Patient seen and examined at bedside. complaining of generalized pain however improved from yesterday. Denies fevers, chills. + OOB w/ continued Left hip pain Objective - Vital Signs/Intake and Output Vital Signs (last 24 hours): Temp Pulse Resp BP Pulse Ox 99.2 F 66 20 124/78 94 L 03/28/18 05:41 03/28/18 05:41 03/28/18 05:41 03/28/18 05:41 03/28/18 05:41 Intake and Output: 03/28/18 03/28/18 06:59 18:59 Intake Total 1440 Balance 1440 - Medications Medications: Current Medications Acetaminophen (Tylenol 325mg Tab) 650 mg PO Q6H PRN PRN Reason: Fever >100.4 F Last Admin: 03/27/18 23:15 Dose: 650 mg Docusate Sodium (Colace) 100 mg PO DAILY [facility] Last Admin: 03/27/18 11:40 Dose: Not Given Sodium Chloride (Sodium Chloride 0.9%) 1,000 mls @ 100 mls/hr IV .Q10H [facility] Last Admin: 03/28/18 00:06 Dose: 100 mls/hr Ondansetron HCl (Zofran Inj) 4 mg IVP Q6H PRN PRN Reason: Nausea/Vomiting Last Admin: 03/26/18 07:03 Dose: 4 mg Pantoprazole Sodium (Protonix Inj) 40 mg IVP DAILY [facility] Last Admin: 03/27/18 10:45 Dose: 40 mg - Labs Labs: 03/28/18 06:30 03/28/18 06:30 PT 14.2 SECONDS (9.4-12.5) H 03/28/18 06:30 INR 1.23 03/28/18 06:30 APTT 26.1 Seconds (25.1-36.5) 03/28/18 06:30 - Constitutional Appears: Non-toxic, No Acute Distress - Head Exam Head Exam: ATRAUMATIC - Eye Exam Eye Exam: EOMI. absent: Scleral icterus - ENT Exam ENT Exam: Mucous Membranes Moist - Respiratory Exam Respiratory Exam: NORMAL BREATHING PATTERN. absent: Accessory Muscle Use, Respiratory Distress - Cardiovascular Exam Cardiovascular Exam: +S1, +S2. absent: Bradycardia, Tachycardia - GI/Abdominal Exam GI & Abdominal Exam: Soft, Tenderness (Tender RUQ). absent: Distended, Firm, Guarding, Rigid - Neurological Exam Neurological Exam: Alert, Awake, Oriented x3 - Psychiatric Exam Psychiatric exam: Normal Affect - Skin Skin Exam: Intact, Warm Assessment and Plan - Assessment and Plan (Free Text) Assessment: 47M w/ Hepatic abscess Plan: - NPO for IR drainage of abscess - will continue to follow - abx - further recs per Dr. Shadi Gonsales PGY2
[2018-03-28] MEDS ORDERED: Midazolam 2 MG/2 ML VIAL ONE (09:48)
[2018-03-28] MEDS ORDERED: Lidocaine 1% Inj (20ml) ONE (09:49)
[2018-03-28] MEDS ORDERED: Midazolam 2 MG/2 ML VIAL IVP ONE (10:20)
--- NOTE | 2018-03-28 10:49 | PCM.SURG1 ---
Surgeon's Initial Post Op Note - Surgeon's Notes Surgeon: Yehuda Thompson MD Instructor Painting: NONE Type of Anesthesia: Moderate Sedation{RN} Pre-Operative Diagnosis: Perihepatic abscess Operative Findings: CT showed a large perihepatic abscess Post-Operative Diagnosis: Perihepatic abscess Operation Performed: CT guided abscess drainage, placement of a 12 Fr drainage catheter. Specimen/Specimens Removed: 20 cc of purelent drainage Estimated Blood Loss: EBL {In ML}: 1 Blood Products Given: N/A Drains Used: Srinath Pina Post-Op Condition: Fair Date of Surgery/Procedure: 03/28/18 Time of Surgery/Procedure: 10:15
--- NOTE | 2018-03-28 11:38 | CT ---
PROCEDURE: Date of procedure: 03/28/2018 Procedure: 1. abdominal abscess drainage with CT guidance, CPT 43784 Medications: The patient received IV sedation administered by anesthesiologist Radiation: 1018.50 MGy-cm HISTORY: Perihepatic abscess TECHNIQUE: Following informed consent procedure time-out, non contrast CT was performed which showed a large complex perihepatic collection. The skin localizer was placed on the patient's abdomen and a repeat CT scan performed. The skin was marked, prepped, and draped in the usual sterile fashion. Under CT guidance, a needle was advanced into the collection. Upon return of purulent drainage, the needle was exchanged over an 035 guidewire and the tract was dilated to accommodate a 12 Maltese pigtail drainage catheter formed within the collection. The position of the 12 Fr drainage catheter was confirmed with repeat CT scan. 20 cubic centimeters of purulent drainage was removed and sent for culture and sensitivity. The catheter was secured the patient's skin. A dressing was applied. IMPRESSION: CT-guided abscess drainage within the placement of a 12 Maltese drainage catheter with abscess. The fluid specimen was sent for culture and sensitivity.
--- NOTE | 2018-03-28 13:14 | CP.PCM.PN ---
Subjective - Date & Time of Evaluation Date of Evaluation: 03/28/18 Time of Evaluation: 08:00 - Subjective Subjective: For CT-guided drainage of liver abscess today, no fevers overnight. Objective - Vital Signs/Intake and Output Vital Signs (last 24 hours): Temp Pulse Resp BP Pulse Ox 99.2 F 66 20 124/78 94 L 03/28/18 05:41 03/28/18 05:41 03/28/18 05:41 03/28/18 05:41 03/28/18 05:41 Intake and Output: 03/28/18 03/28/18 06:59 18:59 Intake Total 1440 Balance 1440 - Medications Medications: Current Medications Acetaminophen (Tylenol 325mg Tab) 650 mg PO Q6H PRN PRN Reason: Fever >100.4 F Last Admin: 03/27/18 23:15 Dose: 650 mg Docusate Sodium (Colace) 100 mg PO DAILY [facility] Last Admin: 03/27/18 11:40 Dose: Not Given Sodium Chloride (Sodium Chloride 0.9%) 1,000 mls @ 100 mls/hr IV .Q10H [facility] Last Admin: 03/28/18 00:06 Dose: 100 mls/hr Ondansetron HCl (Zofran Inj) 4 mg IVP Q6H PRN PRN Reason: Nausea/Vomiting Last Admin: 03/26/18 07:03 Dose: 4 mg Pantoprazole Sodium (Protonix Inj) 40 mg IVP DAILY [facility] Last Admin: 03/27/18 10:45 Dose: 40 mg - Labs Labs: 03/28/18 06:30 03/28/18 06:30 PT 14.2 SECONDS (9.4-12.5) H 03/28/18 06:30 INR 1.23 03/28/18 06:30 APTT 26.1 Seconds (25.1-36.5) 03/28/18 06:30 - Constitutional Appears: Chronically Ill - Head Exam Head Exam: NORMAL INSPECTION - Respiratory Exam Respiratory Exam: Decreased Breath Sounds - Cardiovascular Exam Cardiovascular Exam: +S1, +S2 - GI/Abdominal Exam GI & Abdominal Exam: Soft. absent: Tenderness Assessment and Plan - Assessment and Plan (Free Text) Plan: Assessment liver abscess and left groin abscess S/P CT-guided drainage today history of sepsis due to Staph aureus and gram negative bacilli bacteremia with right hand and wrist skin and skin structure infection dyslipidemia hepatitis C infection history of IV drug use chronic alcohol abuse Plan will start Vancomycin and Zosyn and will follow up abscess cultures; blood cx are negative Hepatitis C infection should be addressed as an outpatient
[2018-03-28] MEDS ORDERED: Morphine 2 mg/ml ISec IVP PRN (13:20)
[2018-03-28] MEDS: Vancomycin 1gm in NS 250ml 1 GM/250 ML BAG IVPB SCH (14:08)
--- NOTE | 2018-03-28 14:18 | CP.PCM.PN ---
<Sean Tellez - Last Filed: 03/28/18 14:41> Subjective - Date & Time of Evaluation Date of Evaluation: 03/28/18 Time of Evaluation: 08:00 - Subjective Subjective: Pt seen and examined this morning. Pt reports pain in his hip and abdomen which is improving. Pt denies chest pain, SOB, fever or chills. Objective - Vital Signs/Intake and Output Vital Signs (last 24 hours): Temp Pulse Resp BP Pulse Ox 99.6 F 67 20 135/86 94 L 03/28/18 11:20 03/28/18 11:20 03/28/18 11:20 03/28/18 11:20 03/28/18 11:20 Intake and Output: 03/28/18 03/28/18 06:59 18:59 Intake Total 1440 100 Balance 1440 100 - Medications Medications: Current Medications Acetaminophen (Tylenol 325mg Tab) 650 mg PO Q6H PRN PRN Reason: Fever >100.4 F Last Admin: 03/27/18 23:15 Dose: 650 mg Docusate Sodium (Colace) 100 mg PO DAILY PRN PRN Reason: Constipation Heparin Sodium (Porcine) (Heparin) 5,000 units SC Q8 KIMBERLEE; Protocol Vancomycin HCl (Vancomycin 1gm) 1 gm in 250 mls @ 167 mls/hr IVPB Q12H [facility]BERLEE; Protocol Last Admin: 03/28/18 14:08 Dose: 167 mls/hr Piperacillin Sod/Tazobactam Sod (Zosyn 3.375 In Ns 100ml) 100 mls @ 200 mls/hr IVPB Q6 K[facility]BERLEE; Protocol Stop: 04/04/18 18:01 Morphine Sulfate (Morphine) 1 mg IVP Q4H PRN PRN Reason: Pain, severe (8-10) Ondansetron HCl (Zofran Inj) 4 mg IVP Q6H PRN PRN Reason: Nausea/Vomiting Last Admin: 03/28/18 14:06 Dose: 4 mg Pantoprazole Sodium (Protonix Inj) 40 mg IVP DAILY KIMBERLEE Last Admin: 03/28/18 14:09 Dose: 40 mg - Labs Labs: 03/28/18 06:30 03/28/18 06:30 PT 14.2 SECONDS (9.4-12.5) H 03/28/18 06:30 INR 1.23 03/28/18 06:30 APTT 26.1 Seconds (25.1-36.5) 03/28/18 06:30 - Constitutional Appears: No Acute Distress - Head Exam Head Exam: ATRAUMATIC, NORMOCEPHALIC - Eye Exam Eye Exam: EOMI - ENT Exam ENT Exam: Mucous Membranes Moist - Neck Exam Neck Exam: Full ROM - Respiratory Exam Respiratory Exam: Clear to Ausculation Bilateral, NORMAL BREATHING PATTERN. absent: Accessory Muscle Use, Wheezes, Respiratory Distress - Cardiovascular Exam Cardiovascular Exam: RRR, +S1, +S2. absent: Diastolic murmur, Murmur - GI/Abdominal Exam GI & Abdominal Exam: Tenderness, Normal Bowel Sounds - Extremities Exam Extremities Exam: Full ROM. absent: Calf Tenderness, Pedal Edema - Neurological Exam Neurological Exam: Alert, Awake, Oriented x3 - Psychiatric Exam Psychiatric exam: Normal Affect, Normal Mood - Skin Skin Exam: Dry, Intact, Warm Assessment and Plan - Assessment and Plan (Free Text) Assessment: Pt is a 47yo male with a PMH of substance abuse, sciatica, Hepatitis C, Left hip septic joint, and liver abscess who presents complaining of pain in his left hip which has been present since his last discharge. Plan: Liver abscess - Likely 2/2 hematologic spread from the L hip abscess - Zofran 4mg q6 PRN - Blood Cultures negative - IR drained liver abscess today, will wait for culture - ID consulted, vanc and zosyn, follow up after IR drainage results L Hip Abscess - Blood Cultures negative - LE Duplex, No evidence of DVT - Gen surg consult: Dr. Hsu - Ortho consulted: Dr. Day Left Groin Abscess - ID rec vanc and zosyn Thrombocytosis - plt 737 - likely due to liver abscess, will continue to monitor Hypokalemia - 3.2 - replete PRN Anemia - Hgb 8.6, at baseline - continue to monitor at this time Hx of Hep C - recommend treatment as out pt after cessation of IVDA Ppx - Protonix - SCDs Pt seen, examined, assessment and plan discussed with Dr Cassie Tellez PGY1, Internal Medicine Resident <Cassie Alba R - Last Filed: 03/31/18 15:38> Objective - Vital Signs/Intake and Output Vital Signs (last 24 hours): Temp Pulse Resp BP Pulse Ox 98.4 F 87 20 125/78 95 03/31/18 12:00 03/31/18 12:00 03/31/18 12:00 03/31/18 12:00 03/31/18 06:00 Intake and Output: 03/31/18 03/31/18 06:59 18:59 Intake Total 680 Output Total 580 Balance 100 - Medications Medications: Current Medications Acetaminophen (Tylenol 325mg Tab) 650 mg PO Q6H PRN PRN Reason: Fever >100.4 F Last Admin: 03/27/18 23:15 Dose: 650 mg Benzocaine/Menthol (Cepacol Sore Throat) 1 nelson MT Q2H PRN PRN Reason: Sore Throat Last Admin: 03/31/18 03:20 Dose: 1 nelson Heparin Sodium (Porcine) (Heparin) 5,000 units SC Q8 KIMBERLEE; Protocol Last Admin: 03/31/18 05:32 Dose: 5,000 units Piperacillin Sod/Tazobactam Sod (Zosyn 3.375 In Ns 100ml) 100 mls @ 200 mls/hr IVPB Q6 KIMBERLEE; Protocol Stop: 04/04/18 18:01 Last Admin: 03/31/18 11:30 Dose: 200 mls/hr Morphine Sulfate (Morphine) 1 mg IVP Q6H PRN PRN Reason: Pain, severe (8-10) Last Admin: 03/31/18 10:48 Dose: 1 mg Ondansetron HCl (Zofran Inj) 4 mg IVP Q6H PRN PRN Reason: Nausea/Vomiting Last Admin: 03/28/18 14:06 Dose: 4 mg Pantoprazole Sodium (Protonix Ec Tab) 40 mg PO 0600 KIMBERLEE Last Admin: 03/31/18 05:32 Dose: 40 mg Tramadol HCl (Ultram) 50 mg PO TID PRN PRN Reason: Pain, moderate (4-7) - Labs Labs: 03/31/18 08:45 03/31/18 08:45 PT 14.2 SECONDS (9.4-12.5) H 03/28/18 06:30 INR 1.23 03/28/18 06:30 APTT 26.1 Seconds (25.1-36.5) 03/28/18 06:30 Attending/Attestation - Attestation I have personally seen and examined this patient.: Yes I have fully participated in the care of the patient.: Yes I have reviewed all pertinent clinical information, including history, physical exam and plan: Yes Notes (Text): Patient seen and examined by me with resident at 1:25 PM on 03/28/18. Case including HPI, physical exam, and assessment and plan discussed with resident. Agree with above with following additions/corrections. Patient is a 47-year-old male with past medical history significant for polysubstance abuse, sciatica, hepatitis C, left hip septic joint status post washout that presented to the emergency room with left hip pain. Patient states he is feeling ok. Patient is s/p IR drainage of liver abscess. Patient states he is feeling nauseous and throwing up. Also complains of diarrhea. Feels that he is withdrawing from IV heroin use. Patient also with left hip pain. He denies chest pain and shortness of breath. No headaches or dizziness. No lightheadedness. No change in vision. No dysuria. Physical exam: General: Awake and alert, lying in bed in no acute distress. HEENT: Normocephalic, atraumatic, Extraocular muscles intact, pupils equal and reactive, no scleral icterus. Oropharynx is pink and moist. No pharyngeal erythema or exudate appreciated. Neck is supple. Cardiovascular: Normal rhythm. Normal S1 and S2. No murmus, rubs, or gallops appreciated. Pulmonary: Normal respiratory effort. No rhonchi, rales, or wheezing appreciated. Gastrointestinal: Soft, nondistended. Mild tenderness around drain site. Drain in placed with purulent discharge on right. Positive bowel sounds all 4 quadrants. No guarding. Musculoskeletal: Moves all extremities. No calf tenderness. Bilateral lower extremity pittng edema. Left hip tenderness. Central nervous system: AAO x3, CN2-12 grossly intact. Dermatologic: Skin warm and dry. Assessment and plan: Patient is a 47-year-old male with past medical history significant for polysubstance abuse, sciatica, hepatitis C, left hip septic joint status post washout that presented to the emergency room with left hip pain. 1. Liver abscess. CT abdomen and pelvis per radiologist showed large 20 x 9.3 cm subcapsular hepatic abscess, a few tiny foci of air in the right upper quadrant which may be intraperitoneal, left groin 4.1 x 2.7 cm abscess, chronic osteomyelitis and septic arthritis of the left hip. IR following, recommendations appreciated. Status post liver abscess drainage and drain p lacement, follow-up culture results. ID following, recommendations appreciated. Continue vancomycin and Zosyn. Blood cultures with no growth. Surgery following, recommendations appreciated. Patient was non compliant with medications and follow at last discharge, patient counesl 2. Left hip chronic osteomyelitis, septic arthritis, left groin abscess. Continue Vanco and Zosyn. Patient noncompliant with medications from initial diagnosis. Ortho consulted, no surgical intervention per Dr. Day. 3. Bilateral lower extremity venous dopplers. No DVT seen on venous doppler of bilateral lower extremities. 4. Thrombocytosis. Likely reacitve. Uptrending. Continue to monitor trend 5. Anemia. Chronic. H&H stable. Continue to monitor CBC 6. Hypokalemia. Resolved. Continue to monitor 7. Hepatitis C. Patient to follow up outpatient for treatment. 8. IVDA. Patient counseled at length on cessation. 9. GI/DVT prophylaxis. Protonix/heparin Case was discussed in detail with patient regarding current diagnosis and treatment plan. All questions answered.
[2018-03-28] MEDS: Piperacillin/Tazobact 3.375 gm 100 ML IVPB SCH (17:44)
[2018-03-29] MEDS: Piperacillin/Tazobact 3.375 gm 100 ML IVPB SCH ×5 (00:08→23:06)
[2018-03-29] MEDS: Vancomycin 1gm in NS 250ml 1 GM/250 ML BAG IVPB SCH ×3 (00:18→21:45)
[2018-03-29 07:45] LABS: BASO # 0.01 K/mm3 (0.0-2.0); BASO % 0.1 % (0.0-3.0); EOS # 0.1 (0.0-0.7); EOS % 0.9 % (1.5-5.0); GRAN # 5.94 (1.4-6.5); GRAN % 70.2 % (50.0-68.0); HEMOGLOBIN 8.8 g/dL (14.0-18.0); LYMPH # 1.8 (1.2-3.4); LYMPH % 21.2 % (22.0-35.0); MEAN CELL VOLUME 72.5 fl (80.0-105.0); MEAN CORPUSCULAR HEMOGLOBIN 22.9 pg (25.0-35.0); MEAN CORPUSCULAR HGB CONC 31.5 g/dl (31.0-37.0); MEAN PLATELET VOLUME 7.7 fl (7.0-11.0); MONO # 0.6 (0.1-0.6); MONO % 7.6 % (1.0-6.0); RBC 3.85 10^6/uL (3.5-6.1); RED CELL DISTRIBUTION WIDTH 19.1 % (11.5-14.5); WHITE BLOOD COUNT 8.5 10^3/uL (4.5-11.0)
[2018-03-29 08:25] LABS: ALB/GLOB RATIO 0.6 (1.1-1.8); ALBUMIN 2.5 g/dL (3.0-4.8); ALT/SGPT 27 U/L (7-56); AST/SGOT 31 U/L (17-59); BLOOD UREA NITROGEN 14 mg/dL (7-21); CALCIUM 8.1 mg/dL (8.4-10.5); GFR NON-AFRICAN AMERICAN > 60
--- NOTE | 2018-03-29 09:19 | CP.PCM.PN ---
Subjective - Date & Time of Evaluation Date of Evaluation: 03/29/18 Time of Evaluation: 07:00 - Subjective Subjective: Surgery Progress note. Dr. Hsu Pt seen and examined at bedside. No acute events overnight. Denies any fevers or chills. Tmax 99.8F. No N/V/D. Patient denies any new complaints. Had IR drain placed in perihepatic abscess collection yesterday, with 20cc purulent output immediately and 120cc purulent output total since placement. Objective - Vital Signs/Intake and Output Vital Signs (last 24 hours): Temp Pulse Resp BP Pulse Ox 98.9 F 62 20 130/86 97 03/29/18 06:00 03/29/18 06:00 03/29/18 06:00 03/29/18 06:00 03/29/18 06:00 Intake and Output: 03/29/18 03/29/18 06:59 18:59 Intake Total 650 Output Total 450 Balance 200 - Medications Medications: Current Medications Acetaminophen (Tylenol 325mg Tab) 650 mg PO Q6H PRN PRN Reason: Fever >100.4 F Last Admin: 03/27/18 23:15 Dose: 650 mg Docusate Sodium (Colace) 100 mg PO DAILY PRN PRN Reason: Constipation Heparin Sodium (Porcine) (Heparin) 5,000 units SC Q8 K[facility]BER[facility]E; Protocol Last Admin: 03/29/18 07:57 Dose: 5,000 units Vancomycin HCl (Vancomycin 1gm) 1 gm in 250 mls @ 167 mls/hr IVPB Q12H [facility]; Protocol Last Admin: 03/29/18 00:18 Dose: 167 mls/hr Piperacillin Sod/Tazobactam Sod (Zosyn 3.375 In Ns 100ml) 100 mls @ 200 mls/hr IVPB Q6 [facility]BER[facility]E; Protocol Stop: 04/04/18 18:01 Last Admin: 03/29/18 05:25 Dose: 200 mls/hr Morphine Sulfate (Morphine) 1 mg IVP Q6H PRN PRN Reason: Pain, severe (8-10) Ondansetron HCl (Zofran Inj) 4 mg IVP Q6H PRN PRN Reason: Nausea/Vomiting Last Admin: 03/28/18 14:06 Dose: 4 mg Pantoprazole Sodium (Protonix Inj) 40 mg IVP DAILY K[facility]BER[facility]E Last Admin: 03/28/18 14:09 Dose: 40 mg - Labs Labs: 03/29/18 07:15 03/29/18 07:15 PT 14.2 SECONDS (9.4-12.5) H 03/28/18 06:30 INR 1.23 03/28/18 06:30 APTT 26.1 Seconds (25.1-36.5) 03/28/18 06:30 - Constitutional Appears: Well, Non-toxic, No Acute Distress - Head Exam Head Exam: ATRAUMATIC, NORMAL INSPECTION, NORMOCEPHALIC - Eye Exam Eye Exam: EOMI, Normal appearance. absent: Scleral icterus - ENT Exam ENT Exam: Mucous Membranes Moist - Respiratory Exam Respiratory Exam: NORMAL BREATHING PATTERN. absent: Accessory Muscle Use, Respiratory Distress - Cardiovascular Exam Cardiovascular Exam: RRR. absent: JVD - GI/Abdominal Exam GI & Abdominal Exam: Soft. absent: Distended, Firm, Guarding, Pulsatile Mass, Rebound Additional comments: RUQ drain in place, dressing clean, dry and intact. Drain connected to leg bag with purulent drainage noted. - Extremities Exam Extremities Exam: Normal Inspection. absent: Calf Tenderness - Neurological Exam Neurological Exam: Alert, Awake, Oriented x3 - Psychiatric Exam Psychiatric exam: Normal Affect, Normal Mood - Skin Skin Exam: Dry, Intact, Normal Color, Warm Assessment and Plan - Assessment and Plan (Free Text) Assessment: 47yo M with Hepatic Abscess. s/p IR drainage on 03/28/18. POD1 Plan: - Diet as tolerated - Abx as per ID recs - Continue IR drain and monitor outputs - No further general surgery intervention warranted at this time Further recs as per Dr. Shadi Cat [facility] surgery
[2018-03-29] MEDS: Morphine 2 mg/ml ISec IVP PRN ×3 (10:11→23:13)
--- NOTE | 2018-03-29 10:44 | CP.PCM.PN ---
<Thom Ghosh - Last Filed: 03/29/18 10:38> Subjective - Date & Time of Evaluation Date of Evaluation: 03/29/18 Time of Evaluation: 08:30 - Subjective Subjective: Medicine Progress Note for Hospitalist Service, Dr. Cassie Ghosh, DO PGY-1 Pt seen and examined at bedside, resting comfortably in bed. Reports pain well controlled. Denies any acute complaints currently. S/p drainage of hepatic abscess by IR yesterday. No acute events reported overnight by staff. 12-point ROS obtained, otherwise neg as per pt. Objective - Vital Signs/Intake and Output Vital Signs (last 24 hours): Temp Pulse Resp BP Pulse Ox 98.9 F 62 20 130/86 97 03/29/18 06:00 03/29/18 06:00 03/29/18 06:00 03/29/18 06:00 03/29/18 06:00 Intake and Output: 03/29/18 03/29/18 06:59 18:59 Intake Total 650 Output Total 450 Balance 200 - Medications Medications: Current Medications Acetaminophen (Tylenol 325mg Tab) 650 mg PO Q6H PRN PRN Reason: Fever >100.4 F Last Admin: 03/27/18 23:15 Dose: 650 mg Docusate Sodium (Colace) 100 mg PO DAILY PRN PRN Reason: Constipation Heparin Sodium (Porcine) (Heparin) 5,000 units SC Q8 KIMBERLEE; Protocol Last Admin: 03/29/18 07:57 Dose: 5,000 units Vancomycin HCl (Vancomycin 1gm) 1 gm in 250 mls @ 167 mls/hr IVPB Q12H K[facility]BERLEE; Protocol Last Admin: 03/29/18 00:18 Dose: 167 mls/hr Piperacillin Sod/Tazobactam Sod (Zosyn 3.375 In Ns 100ml) 100 mls @ 200 mls/hr IVPB Q6 K[facility]BERLEE; Protocol Stop: 04/04/18 18:01 Last Admin: 03/29/18 05:25 Dose: 200 mls/hr Morphine Sulfate (Morphine) 1 mg IVP Q6H PRN PRN Reason: Pain, severe (8-10) Last Admin: 03/29/18 10:11 Dose: 1 mg Ondansetron HCl (Zofran Inj) 4 mg IVP Q6H PRN PRN Reason: Nausea/Vomiting Last Admin: 03/28/18 14:06 Dose: 4 mg Pantoprazole Sodium (Protonix Inj) 40 mg IVP DAILY KIMBERLEE Last Admin: 03/29/18 09:57 Dose: 40 mg - Labs Labs: 03/29/18 07:15 03/29/18 07:15 PT 14.2 SECONDS (9.4-12.5) H 03/28/18 06:30 INR 1.23 03/28/18 06:30 APTT 26.1 Seconds (25.1-36.5) 03/28/18 06:30 - Constitutional Appears: Non-toxic, No Acute Distress - Head Exam Head Exam: ATRAUMATIC, NORMOCEPHALIC - Eye Exam Eye Exam: EOMI, Normal appearance, PERRL - ENT Exam ENT Exam: Mucous Membranes Moist - Respiratory Exam Respiratory Exam: Clear to Ausculation Bilateral, NORMAL BREATHING PATTERN. absent: Rales, Rhonchi, Wheezes - Cardiovascular Exam Cardiovascular Exam: REGULAR RHYTHM, +S1, +S2. absent: Gallop, Rubs, Murmur - GI/Abdominal Exam GI & Abdominal Exam: Soft, Tenderness (to palpation in RUQ), Normal Bowel Sounds. absent: Distended, Organomegaly, Rebound - Extremities Exam Extremities Exam: Full ROM, Normal Capillary Refill, Normal Inspection. absent: Pedal Edema, Tenderness - Neurological Exam Neurological Exam: Alert, Awake, CN II-XII Intact, Oriented x3 - Skin Skin Exam: Dry, Intact, Normal Color, Warm Assessment and Plan - Assessment and Plan (Free Text) Assessment: 47 y o male with a PMHx of substance abuse, sciatica, Hepatitis C, Left hip septic joint, and liver abscess who presented to the ED complaining of pain in his left hip which has been present since his last discharge. Plan: Liver abscess - Likely 2/2 hematologic spread from the L hip abscess - Zofran 4mg q6 PRN - Blood Cultures negative to date - IR drained liver abscess on 03/28 20 cc purulent fluid, will f/u cx results - Morphine prn for pain post-procedure - ID consulted, C/w Vanc/Zosyn, follow up after IR drainage results L Hip Abscess - Blood Cultures negative to date - LE Duplex 03/25 demonstrates no evidence of DVT - Gen surg consulted, Dr. Hsu, recs appreciated - Ortho consulted, shailesh Hedrick appreciated. Spoke with Dr. Day, no acute surgical intervention from his end and c/w antibiotic therapy, awaiting official consult note. Left Groin Abscess - C/w Vanc/Zosyn, ID consulted Thrombocytosis - Plts 751 today - Likely 2/2 to liver abscess, will continue to monitor Hypokalemia - resolved - K 3.6 today - replete PRN Anemia - Hgb 8.8 today, at baseline - Continue to monitor Hx of Hep C - Rec tx as outpt after cessation of IVDA PPX - Protonix - SCDs Pt seen, examined with, and plan discussed with Dr. Alba, attending physician. Thom Ghosh DO PGY-1, [employer] Inspector Pager #[phone] <Cassie Alba R - Last Filed: 03/31/18 16:12> Objective - Vital Signs/Intake and Output Vital Signs (last 24 hours): Temp Pulse Resp BP Pulse Ox 98.4 F 87 20 125/78 95 03/31/18 12:00 03/31/18 12:00 03/31/18 12:00 03/31/18 12:00 03/31/18 06:00 Intake and Output: 03/31/18 03/31/18 06:59 18:59 Intake Total 680 Output Total 580 Balance 100 - Medications Medications: Current Medications Acetaminophen (Tylenol 325mg Tab) 650 mg PO Q6H PRN PRN Reason: Fever >100.4 F Last Admin: 03/27/18 23:15 Dose: 650 mg Benzocaine/Menthol (Cepacol Sore Throat) 1 nelson MT Q2H PRN PRN Reason: Sore Throat Last Admin: 03/31/18 03:20 Dose: 1 nelson Heparin Sodium (Porcine) (Heparin) 5,000 units SC Q8 KIMBERLEE; Protocol Last Admin: 03/31/18 15:54 Dose: 5,000 units Piperacillin Sod/Tazobactam Sod (Zosyn 3.375 In Ns 100ml) 100 mls @ 200 mls/hr IVPB Q6 KIMBERLEE; Protocol Stop: 04/04/18 18:01 Last Admin: 03/31/18 11:30 Dose: 200 mls/hr Morphine Sulfate (Morphine) 1 mg IVP Q6H PRN PRN Reason: Pain, severe (8-10) Last Admin: 03/31/18 15:54 Dose: 1 mg Ondansetron HCl (Zofran Inj) 4 mg IVP Q6H PRN PRN Reason: Nausea/Vomiting Last Admin: 03/28/18 14:06 Dose: 4 mg Pantoprazole Sodium (Protonix Ec Tab) 40 mg PO 0600 KIMBERLEE Last Admin: 03/31/18 05:32 Dose: 40 mg Tramadol HCl (Ultram) 50 mg PO TID PRN PRN Reason: Pain, moderate (4-7) - Labs Labs: 03/31/18 08:45 03/31/18 08:45 PT 14.2 SECONDS (9.4-12.5) H 03/28/18 06:30 INR 1.23 03/28/18 06:30 APTT 26.1 Seconds (25.1-36.5) 03/28/18 06:30 Attending/Attestation - Attestation I have personally seen and examined this patient.: Yes I have fully participated in the care of the patient.: Yes I have reviewed all pertinent clinical information, including history, physical exam and plan: Yes Notes (Text): Patient seen and examined by me with resident at 8:40 AM on 03/29/18. Case including HPI, physical exam, and assessment and plan discussed with resident. Agree with above with following additions/corrections. Patient is a 47-year-old male with past medical history significant for polysubstance abuse, sciatica, hepatitis C, left hip septic joint status post washout that presented to the emergency room with left hip pain. Patient states he is feeling a little better. Still feels like he is withdrawing a little bit. Complains of diarrhea. Also with chronic left hip pain. Patient denies chest pain and shortness of breath. No headaches or dizziness. No lightheadedness. No change in vision. No dysuria. Physical exam: General: Awake and alert, lying in bed in no acute distress. HEENT: Normocephalic, atraumatic, Extraocular muscles intact, pupils equal and reactive, no scleral icterus. Oropharynx is pink and moist. No pharyngeal erythema or exudate appreciated. Neck is supple. Cardiovascular: Normal rhythm. Normal S1 and S2. No murmus, rubs, or gallops appreciated. Pulmonary: Normal respiratory effort. No rhonchi, rales, or wheezing appreciated. Gastrointestinal: Soft, nondistended. Mild tenderness around drain site. Drain in placed with purulent discharge on right. Positive bowel sounds all 4 quadrants. No guarding. Musculoskeletal: Moves all extremities. No calf tenderness. Bilateral lower extremity pittng edema. Left hip tenderness. Central nervous system: AAO x3, CN2-12 grossly intact. Dermatologic: Skin warm and dry. Assessment and plan: Patient is a 47-year-old male with past medical history significant for polysubstance abuse, sciatica, hepatitis C, left hip septic joint status post washout that presented to the emergency room with left hip pain. 1. Liver abscess. Status post liver abscess drainage and drain placement, pending culture results. Continue vancomycin and Zosyn. Blood cultures with no growth. CT abdomen and pelvis per radiologist showed large 20 x 9.3 cm subcapsular hepatic abscess, a few tiny foci of air in the right upper quadrant which may be intraperitoneal, left groin 4.1 x 2.7 cm abscess, chronic osteomyelitis and septic arthritis of the left hip. IR following, recommendations appreciated. ID following, recommendations appreciated. Surgery following, recommendations appreciated. 2. Left hip chronic osteomyelitis, septic arthritis, left groin abscess. Continue Vanco and Zosyn. Patient noncompliant with medications from initial diagnosis. Ortho following, recommendations appreciated. 3. Bilateral lower extremity venous dopplers. No DVT seen on venous doppler of bilateral lower extremities. 4. Thrombocytosis. Likely reactive. Downtrending. Continue to monitor trend 5. Anemia. Chronic. H&H stable. Continue to monitor CBC 6. Medication noncompliance. Patient was non compliant with medications and follow up at last discharge, patient counseled at length on importance of medication compliance. 7. Hypokalemia. Resolved. Continue to monitor 8. Hepatitis C. Patient to follow up outpatient for treatment. 9. IVDA. Patient counseled at length on cessation. 10. GI/DVT prophylaxis. Protonix/heparin Case was discussed in detail with patient regarding current diagnosis and treatment plan. All questions answered.
--- NOTE | 2018-03-29 12:43 | PN ---
DATE: 03/29/2018 SUBJECTIVE: The patient is in bed in no acute distress, nontoxic. PHYSICAL EXAMINATION: VITAL SIGNS: Temperature is 99, blood pressure is 130/80, respiratory rate of 20. HEENT: Examination is unremarkable. NECK: Supple. LUNGS: Have decreased breath sounds. HEART: Normal S1, S2. ABDOMEN: Soft, nontender. LABORATORY DATA: Examination reveals white count is 8.5, hemoglobin of 8, platelets of 751. Chemistry reveals a BUN of 14, creatinine of 0.6. Toxicology is noted. Serology is noted. Microbiology is noted. Blood cultures are negative. Nares are negative. Abdominal fluid cultures are pending. MEDICATIONS: Review of orders reveals the patient to be on vancomycin and Zosyn. ASSESSMENT AND PLAN: A 47-year-old male with a liver abscess, status post CT-guided aspiration, awaiting for cultures in a patient who is an active intravenous drug abuser, hepatitis C, alcoholic, dyslipidemia, and a sepsis history with Klebsiella bacteremia and Staphylococcus aureus bacteremia, currently on vancomycin and Zosyn day #2. Pending culture results. Ty Will MD
[2018-03-30] MEDS: Piperacillin/Tazobact 3.375 gm 100 ML IVPB SCH ×4 (05:40→23:27)
[2018-03-30] MEDS: Morphine 2 mg/ml ISec IVP PRN ×4 (05:50→23:26)
[2018-03-30 07:10] LABS: EOS # 0.1 (0.0-0.7); EOS % 1.7 % (1.5-5.0); GRAN # 4.61 (1.4-6.5); GRAN % 60.7 % (50.0-68.0); HEMOGLOBIN 8.7 g/dL (14.0-18.0); LYMPH # 2.1 (1.2-3.4); LYMPH % 27.7 % (22.0-35.0); MEAN CELL VOLUME 72.4 fl (80.0-105.0); MEAN CORPUSCULAR HEMOGLOBIN 22.4 pg (25.0-35.0); MONO # 0.8 (0.1-0.6); MONO % 9.9 % (1.0-6.0); RBC 3.88 10^6/uL (3.5-6.1); RED CELL DISTRIBUTION WIDTH 19.3 % (11.5-14.5); WHITE BLOOD COUNT 7.6 10^3/uL (4.5-11.0)
[2018-03-30 07:50] LABS: ALB/GLOB RATIO 0.6 (1.1-1.8); ALBUMIN 2.5 g/dL (3.0-4.8); ALT/SGPT 20 U/L (7-56); AST/SGOT 28 U/L (17-59); BLOOD UREA NITROGEN 15 mg/dL (7-21); CALCIUM 7.7 mg/dL (8.4-10.5); GFR NON-AFRICAN AMERICAN > 60
[2018-03-30] MEDS: Pantoprazole 40 mg EC Tab PO SCH (07:55)
--- NOTE | 2018-03-30 08:19 | CON ---
DATE: 03/26/2018 REASON FOR CONSULTATION: Left hip chronic septic arthritis. HISTORY OF PRESENT ILLNESS: This is a 47-year-old male with history of chronic left hip septic arthritis, MRSA positive for cultures. He underwent open hip irrigation and debridement on 02/22/2018. The patient presents back to the emergency room complaining of continued pain and fevers. Repeat abdomen and pelvis CT scan on 03/25/2018 findings consistent with chronic left hip septic arthritis, left groin abscess, chronic osteomyelitis and also findings consistent with hepatic abscess. IMPRESSION AND PLAN: The patient continues to have chronic abscess and osteomyelitis of his left hip. I reviewed the CT scan. Patient's abscess is in close proximity to the femoral artery and femoral neurovascular bundle. There is a high chance of vascular injury and mortality due to the proximity of the abscess to the femoral artery. At this time, I recommend Vascular Surgery evaluation. Also, evaluation by Interventional Radiology. As far as the osteomyelitis, at this time I recommend continue long-term IV antibiotics. Fco Day MD [facility]
[2018-03-30] MEDS: Vancomycin 1gm in NS 250ml 1 GM/250 ML BAG IVPB SCH (11:09)
--- NOTE | 2018-03-30 14:10 | CP.PCM.PN ---
<Sean Tellez - Last Filed: 03/30/18 14:07> Subjective - Date & Time of Evaluation Date of Evaluation: 03/30/18 Time of Evaluation: 07:00 - Subjective Subjective: Pt seen and examined this morning at bedside. Pt reports breakthrough pain in his hip. Pt has no other complaints at this time. Objective - Vital Signs/Intake and Output Vital Signs (last 24 hours): Temp Pulse Resp BP Pulse Ox 98.9 F 92 H 20 123/77 96 03/30/18 12:00 03/30/18 06:00 03/30/18 06:00 03/30/18 12:00 03/30/18 06:00 Intake and Output: 03/30/18 03/30/18 06:59 18:59 Intake Total 450 Balance 450 - Medications Medications: Current Medications Acetaminophen (Tylenol 325mg Tab) 650 mg PO Q6H PRN PRN Reason: Fever >100.4 F Last Admin: 03/27/18 23:15 Dose: 650 mg Benzocaine/Menthol (Cepacol Sore Throat) 1 nelson MT Q2H PRN PRN Reason: Sore Throat Heparin Sodium (Porcine) (Heparin) 5,000 units SC Q8 KIMBERLEE; Protocol Last Admin: 03/30/18 13:34 Dose: Not Given Piperacillin Sod/Tazobactam Sod (Zosyn 3.375 In Ns 100ml) 100 mls @ 200 mls/hr IVPB Q6 KIMBERLEE; Protocol Stop: 04/04/18 18:01 Last Admin: 03/30/18 13:15 Dose: 200 mls/hr Vancomycin HCl (Vancomycin 1gm) 1 gm in 250 mls @ 167 mls/hr IVPB 2200,1000 KIMBERLEE; Protocol Last Admin: 03/30/18 11:09 Dose: 167 mls/hr Morphine Sulfate (Morphine) 1 mg IVP Q6H PRN PRN Reason: Pain, severe (8-10) Last Admin: 03/30/18 05:50 Dose: 1 mg Ondansetron HCl (Zofran Inj) 4 mg IVP Q6H PRN PRN Reason: Nausea/Vomiting Last Admin: 03/28/18 14:06 Dose: 4 mg Pantoprazole Sodium (Protonix Ec Tab) 40 mg PO 0600 KIMBERLEE Last Admin: 03/30/18 07:55 Dose: Not Given Tramadol HCl (Ultram) 50 mg PO TID PRN PRN Reason: Pain, moderate (4-7) - Labs Labs: 03/30/18 06:35 03/30/18 06:35 PT 14.2 SECONDS (9.4-12.5) H 03/28/18 06:30 INR 1.23 03/28/18 06:30 APTT 26.1 Seconds (25.1-36.5) 03/28/18 06:30 - Constitutional Appears: No Acute Distress - Head Exam Head Exam: ATRAUMATIC, NORMOCEPHALIC - Eye Exam Eye Exam: EOMI - ENT Exam ENT Exam: Mucous Membranes Moist - Neck Exam Neck Exam: Full ROM - Respiratory Exam Respiratory Exam: Clear to Ausculation Bilateral, NORMAL BREATHING PATTERN. absent: Accessory Muscle Use, Wheezes, Respiratory Distress - Cardiovascular Exam Cardiovascular Exam: +S1, +S2. absent: Diastolic murmur - GI/Abdominal Exam GI & Abdominal Exam: Soft, Normal Bowel Sounds - Extremities Exam Extremities Exam: absent: Calf Tenderness, Pedal Edema Additional comments: left hip painful to palpation - Neurological Exam Neurological Exam: Alert, Awake, Oriented x3 - Psychiatric Exam Psychiatric exam: Normal Affect, Normal Mood - Skin Skin Exam: Dry, Intact, Warm Assessment and Plan - Assessment and Plan (Free Text) Assessment: 47 y o male with a PMHx of substance abuse, sciatica, Hepatitis C, Left hip se ptic joint, and liver abscess who presented to the ED complaining of pain in his left hip which has been present since his last discharge. Plan: Liver abscess - Likely 2/2 hematologic spread from the L hip abscess - Zofran 4mg q6 PRN - Blood Cultures negative to date - IR drained liver abscess on 03/28/18, cultures growing E. coli - Morphine prn for pain post-procedure - Tramadol for breakthrough pain - ID consulted, C/w Vanc/Zosyn L Hip Abscess - Blood Cultures negative to date - LE Duplex 03/25 demonstrates no evidence of DVT - Gen surg consulted, nichelle Allens appreciated - Ortho consulted, Dr. Day recs appreciated. Spoke with Dr. Day, no acute surgical intervention from his end and c/w antibiotic therapy, awaiting official consult note. Left Groin Abscess - C/w Vanc/Zosyn, ID consulted Diarrhea - follow up c diff Odynophagia - cepacol Thrombocytosis - Plts 728 - Likely 2/2 to liver abscess - will continue to monitor Hypokalemia - K 3.8 - replete PRN Anemia - Hgb 8.7, at baseline - Continue to monitor Hx of Hep C - Rec tx as outpt after cessation of IVDA Ppx - Protonix - SCDs Pt seen, examined, assessment and plan discussed with Dr Cassie Tellez PGY1, Internal Medicine Resident <Cassie Alba R - Last Filed: 03/31/18 16:19> Objective - Vital Signs/Intake and Output Vital Signs (last 24 hours): Temp Pulse Resp BP Pulse Ox 98.4 F 87 20 125/78 95 03/31/18 12:00 03/31/18 12:00 03/31/18 12:00 03/31/18 12:00 03/31/18 06:00 Intake and Output: 03/31/18 03/31/18 06:59 18:59 Intake Total 680 Output Total 580 Balance 100 - Medications Medications: Current Medications Acetaminophen (Tylenol 325mg Tab) 650 mg PO Q6H PRN PRN Reason: Fever >100.4 F Last Admin: 03/27/18 23:15 Dose: 650 mg Benzocaine/Menthol (Cepacol Sore Throat) 1 nelson MT Q2H PRN PRN Reason: Sore Throat Last Admin: 03/31/18 03:20 Dose: 1 nelson Heparin Sodium (Porcine) (Heparin) 5,000 units SC Q8 KIMBERLEE; Protocol Last Admin: 03/31/18 15:54 Dose: 5,000 units Piperacillin Sod/Tazobactam Sod (Zosyn 3.375 In Ns 100ml) 100 mls @ 200 mls/hr IVPB Q6 KIMBERLEE; Protocol Stop: 04/04/18 18:01 Last Admin: 03/31/18 11:30 Dose: 200 mls/hr Morphine Sulfate (Morphine) 1 mg IVP Q6H PRN PRN Reason: Pain, severe (8-10) Last Admin: 03/31/18 15:54 Dose: 1 mg Ondansetron HCl (Zofran Inj) 4 mg IVP Q6H PRN PRN Reason: Nausea/Vomiting Last Admin: 03/28/18 14:06 Dose: 4 mg Pantoprazole Sodium (Protonix Ec Tab) 40 mg PO 0600 KIMBERLEE Last Admin: 03/31/18 05:32 Dose: 40 mg Tramadol HCl (Ultram) 50 mg PO TID PRN PRN Reason: Pain, moderate (4-7) - Labs Labs: 03/31/18 08:45 03/31/18 08:45 PT 14.2 SECONDS (9.4-12.5) H 03/28/18 06:30 INR 1.23 03/28/18 06:30 APTT 26.1 Seconds (25.1-36.5) 03/28/18 06:30 Attending/Attestation - Attestation I have personally seen and examined this patient.: Yes I have fully participated in the care of the patient.: Yes I have reviewed all pertinent clinical information, including history, physical exam and plan: Yes Notes (Text): Patient seen and examined by me with resident at 9:35 AM on 03/30/18. Case including HPI, physical exam, and assessment and plan discussed with resident. Agree with above with following additions/corrections. Patient is a 47-year-old male with past medical history significant for polysubstance abuse, sciatica, hepatitis C, left hip septic joint status post washout that presented to the emergency room with left hip pain. Patient states he feels better. States he is still having diarrhea. States that he is also having difficulty swallowing and feels things are "getting stuck in my throat." States he is also having a sore throat. Complains of left hip pain but pain medications are helping. Patient denies chest pain and shortness of breath. No headaches or dizziness. No lightheadedness. No change in vision. No dysuria. Physical exam: General: Awake and alert, lying in bed in no acute distress. HEENT: Normocephalic, atraumatic, Extraocular muscles intact, pupils equal and reactive, no scleral icterus. Oropharynx is pink and moist. No pharyngeal erythema or exudate appreciated. Neck is supple. Cardiovascular: Normal rhythm. Normal S1 and S2. No murmus, rubs, or gallops appreciated. Pulmonary: Normal respiratory effort. No rhonchi, rales, or wheezing appreciated. Gastrointestinal: Soft. Nondistended. No tenderness today. Drain with purulent discharge on right. Positive bowel sounds all 4 quadrants. No guarding. Musculoskeletal: Moves all extremities. No calf tenderness. Bilateral lower extremity pittng edema. Left hip tenderness. Central nervous system: AAO x3, CN2-12 grossly intact. Dermatologic: Skin warm and dry. Assessment and plan: Patient is a 47-year-old male with past medical history significant for polysubstance abuse, sciatica, hepatitis C, left hip septic joint status post washout that presented to the emergency room with left hip pain. 1. Dysphagia. Sore throat. Will get swallow evaluation. Placed on cepacol as needed. 2. Liver abscess. Status post liver abscess drainage and drain placement, cultures positive for E. Coli. Continue vancomycin and Zosyn. Blood cultures with no growth. CT abdomen and pelvis per radiologist showed large 20 x 9.3 cm subcapsular hepatic abscess, a few tiny foci of air in the right upper quadrant which may be intraperitoneal, left groin 4.1 x 2.7 cm abscess, chronic osteomyelitis and septic arthritis of the left hip. IR following, recommendations appreciated. ID following, recommendations appreciated. Surgery following, recommendations appreciated. 3. Left hip chronic osteomyelitis, septic arthritis, left groin abscess. Continue Vanco and Zosyn. Patient noncompliant with medications from initial diagnosis, did not take antibiotics. Ortho following, recommendations appreciated. Will consult IR for possible abscess drainage. 4. Diarrhea. May be from withdrawal. Patient has been on antibiotics. Will check c-diff. 5. Bilateral lower extremity venous dopplers. No DVT seen on venous doppler of bilateral lower extremities. 6. Thrombocytosis. Likely reactive. Continues to downtrend. Continue to monitor 7. Anemia. Chronic. H&H stable. Continue to monitor CBC 8. Medication noncompliance. Patient was non compliant with medications and follow up at last discharge, patient counseled at length on importance of medication compliance. 9. Hypokalemia. Resolved. Continue to monitor 10. Hepatitis C. Patient to follow up outpatient for treatment. 11. IVDA. Patient counseled at length on cessation. 12. GI/DVT prophylaxis. Protonix/heparin Case was discussed in detail with patient regarding current diagnosis and treatment plan. All questions answered.
[2018-03-30] MEDS: Benzocaine/Menthol (Cepacol) Lozenge MT PRN (17:51)
--- NOTE | 2018-03-31 01:34 | PN ---
DATE: 03/30/2018 SUBJECTIVE: The patient is in bed, in no acute distress. He was seen earlier this morning. No nausea or vomiting. PHYSICAL EXAMINATION: VITAL SIGNS: Temperature is 98, blood pressure is 123/77, respiratory rate of 18. HEENT: Unremarkable. NECK: Supple. LUNGS: Decreased breath sounds. CARDIAC: Heart sounds normal S1 and S2. ABDOMEN: Soft. LABORATORY DATA: Reveals white count of 7.6, BUN of 15, creatinine of 0.6. Toxicology is noted. Serology is reviewed. HIV is negative. Abdominal fluid has E. coli that is pansensitive, and there was gram-positive cocci in chains. Gram stain with a heavy growth of E. Coli is noted. ASSESSMENT AND PLAN: A 47-year-old male who was seen earlier today in 265, bed 2 with a liver abscess with E. coli, status post CAT scan-guided aspiration. On a Gram stain, there is gram-positive cocci in chains. We will discontinue the vancomycin and use Zosyn. We will follow closely with you. Ty Will MD
[2018-03-31] MEDS: Benzocaine/Menthol (Cepacol) Lozenge MT PRN (03:20)
[2018-03-31] MEDS: Morphine 2 mg/ml ISec IVP PRN ×4 (05:31→22:07)
[2018-03-31] MEDS: Pantoprazole 40 mg EC Tab PO SCH (05:32)
[2018-03-31] MEDS: Piperacillin/Tazobact 3.375 gm 100 ML IVPB SCH ×3 (05:33→17:46)
[2018-03-31 08:59] LABS: BASO # 0.01 K/mm3 (0.0-2.0); BASO % 0.1 % (0.0-3.0); EOS # 0.1 (0.0-0.7); GRAN # 4.39 (1.4-6.5); GRAN % 62.5 % (50.0-68.0); LYMPH # 1.8 (1.2-3.4); LYMPH % 25.1 % (22.0-35.0); MEAN CELL VOLUME 73.1 fl (80.0-105.0); MEAN CORPUSCULAR HEMOGLOBIN 23.3 pg (25.0-35.0); MEAN CORPUSCULAR HGB CONC 31.8 g/dl (31.0-37.0); MEAN PLATELET VOLUME 7.9 fl (7.0-11.0); MONO # 0.7 (0.1-0.6); MONO % 10.3 % (1.0-6.0); RBC 3.87 10^6/uL (3.5-6.1); RED CELL DISTRIBUTION WIDTH 19.3 % (11.5-14.5)
[2018-03-31 09:24] LABS: ALB/GLOB RATIO 0.6 (1.1-1.8); ALBUMIN 2.7 g/dL (3.0-4.8); ALT/SGPT 28 U/L (7-56); AST/SGOT 47 U/L (17-59); BLOOD UREA NITROGEN 9 mg/dL (7-21); CALCIUM 8.2 mg/dL (8.4-10.5); GFR NON-AFRICAN AMERICAN > 60
--- NOTE | 2018-03-31 13:09 | CP.PCM.PN ---
<Sean Tellez - Last Filed: 03/31/18 13:21> Subjective - Date & Time of Evaluation Date of Evaluation: 03/31/18 Time of Evaluation: 07:00 - Subjective Subjective: Pt seen and examined this morning. Pt reports no new complaints at this time. Pt denies chest pain, SOB, fever, chills, or abdominal pain. Objective - Vital Signs/Intake and Output Vital Signs (last 24 hours): Temp Pulse Resp BP Pulse Ox 98.4 F 87 20 125/78 95 03/31/18 12:00 03/31/18 12:00 03/31/18 12:00 03/31/18 12:00 03/31/18 06:00 Intake and Output: 03/31/18 03/31/18 06:59 18:59 Intake Total 680 Output Total 580 Balance 100 - Medications Medications: Current Medications Acetaminophen (Tylenol 325mg Tab) 650 mg PO Q6H PRN PRN Reason: Fever >100.4 F Last Admin: 03/27/18 23:15 Dose: 650 mg Benzocaine/Menthol (Cepacol Sore Throat) 1 nelson MT Q2H PRN PRN Reason: Sore Throat Last Admin: 03/31/18 03:20 Dose: 1 nelson Heparin Sodium (Porcine) (Heparin) 5,000 units SC Q8 KIMBERLEE; Protocol Last Admin: 03/31/18 05:32 Dose: 5,000 units Piperacillin Sod/Tazobactam Sod (Zosyn 3.375 In Ns 100ml) 100 mls @ 200 mls/hr IVPB Q6 KIMBERLEE; Protocol Stop: 04/04/18 18:01 Last Admin: 03/31/18 11:30 Dose: 200 mls/hr Morphine Sulfate (Morphine) 1 mg IVP Q6H PRN PRN Reason: Pain, severe (8-10) Last Admin: 03/31/18 10:48 Dose: 1 mg Ondansetron HCl (Zofran Inj) 4 mg IVP Q6H PRN PRN Reason: Nausea/Vomiting Last Admin: 03/28/18 14:06 Dose: 4 mg Pantoprazole Sodium (Protonix Ec Tab) 40 mg PO 0600 KIMBERLEE Last Admin: 03/31/18 05:32 Dose: 40 mg Tramadol HCl (Ultram) 50 mg PO TID PRN PRN Reason: Pain, moderate (4-7) - Labs Labs: 03/31/18 08:45 03/31/18 08:45 PT 14.2 SECONDS (9.4-12.5) H 03/28/18 06:30 INR 1.23 03/28/18 06:30 APTT 26.1 Seconds (25.1-36.5) 03/28/18 06:30 - Constitutional Appears: No Acute Distress - Head Exam Head Exam: ATRAUMATIC, NORMOCEPHALIC - Eye Exam Eye Exam: EOMI - ENT Exam ENT Exam: Mucous Membranes Moist - Respiratory Exam Respiratory Exam: Clear to Ausculation Bilateral, NORMAL BREATHING PATTERN. absent: Accessory Muscle Use, Respiratory Distress - Cardiovascular Exam Cardiovascular Exam: +S1, +S2. absent: Diastolic murmur, Murmur - GI/Abdominal Exam GI & Abdominal Exam: Soft, Normal Bowel Sounds. absent: Tenderness - Extremities Exam Extremities Exam: Full ROM. absent: Calf Tenderness, Pedal Edema - Neurological Exam Neurological Exam: Alert, Awake, Oriented x3 - Psychiatric Exam Psychiatric exam: Normal Affect, Normal Mood - Skin Skin Exam: Dry, Normal Color, Warm Assessment and Plan - Assessment and Plan (Free Text) Assessment: 47 y o male with a PMHx of substance abuse, sciatica, Hepatitis C, Left hip septic joint, and liver abscess who presented to the ED complaining of pain in his left hip. Plan: Liver abscess - Likely 2/2 hematologic spread from the L hip abscess - Zofran 4mg q6 PRN - Blood Cultures negative to date - IR drained liver abscess on 03/28/18, cultures growing E. coli - Morphine prn - Tramadol for breakthrough pain - ID consulted, Zosyn L Hip Abscess - Blood Cultures negative to date - LE Duplex 03/25 demonstrates no evidence of DVT - Gen surg consulted, Dr. Hsu recjavy appreciated - Ortho consulted, shailesh Hedrick appreciated. Spoke with Dr. aDy, no acute surgical intervention from his end and continue with antibiotic therapy Left Groin Abscess - ID consulted - continue with zosyn Abdominal Discomfort/ firmness - follow up abdominal xray flat plate Diarrhea - follow up c diff Odynophagia - cepacol - improved Thrombocytosis - Plts 642, improving - Likely 2/2 to liver abscess - will continue to monitor Hypokalemia - K 3.9 - replete PRN - continue to monitor Anemia - Hgb 9.0, at baseline - Continue to monitor Hx of Hep C - Recommend treatment as out pt, encourage cessation of IVDA Ppx - Protonix - SCDs, Heparin - encourage incentive spirometry Pt seen, examined, assessment and plan discussed with Dr Cassie Tellez PGY1, Internal Medicine Resident <Cassie Alba R - Last Filed: 03/31/18 16:28> Objective - Vital Signs/Intake and Output Vital Signs (last 24 hours): Temp Pulse Resp BP Pulse Ox 98.4 F 87 20 125/78 95 03/31/18 12:00 03/31/18 12:00 03/31/18 12:00 03/31/18 12:00 03/31/18 06:00 Intake and Output: 03/31/18 03/31/18 06:59 18:59 Intake Total 680 Output Total 580 Balance 100 - Medications Medications: Current Medications Acetaminophen (Tylenol 325mg Tab) 650 mg PO Q6H PRN PRN Reason: Fever >100.4 F Last Admin: 03/27/18 23:15 Dose: 650 mg Benzocaine/Menthol (Cepacol Sore Throat) 1 nelson MT Q2H PRN PRN Reason: Sore Throat Last Admin: 03/31/18 03:20 Dose: 1 nelson Heparin Sodium (Porcine) (Heparin) 5,000 units SC Q8 KIMBERLEE; Protocol Last Admin: 03/31/18 15:54 Dose: 5,000 units Piperacillin Sod/Tazobactam Sod (Zosyn 3.375 In Ns 100ml) 100 mls @ 200 mls/hr IVPB Q6 KIMBERLEE; Protocol Stop: 04/04/18 18:01 Last Admin: 03/31/18 11:30 Dose: 200 mls/hr Morphine Sulfate (Morphine) 1 mg IVP Q6H PRN PRN Reason: Pain, severe (8-10) Last Admin: 03/31/18 15:54 Dose: 1 mg Ondansetron HCl (Zofran Inj) 4 mg IVP Q6H PRN PRN Reason: Nausea/Vomiting Last Admin: 03/28/18 14:06 Dose: 4 mg Pantoprazole Sodium (Protonix Ec Tab) 40 mg PO 0600 KIMBERLEE Last Admin: 03/31/18 05:32 Dose: 40 mg Tramadol HCl (Ultram) 50 mg PO TID PRN PRN Reason: Pain, moderate (4-7) - Labs Labs: 03/31/18 08:45 03/31/18 08:45 PT 14.2 SECONDS (9.4-12.5) H 03/28/18 06:30 INR 1.23 03/28/18 06:30 APTT 26.1 Seconds (25.1-36.5) 03/28/18 06:30 Attending/Attestation - Attestation I have personally seen and examined this patient.: Yes I have fully participated in the care of the patient.: Yes I have reviewed all pertinent clinical information, including history, physical exam and plan: Yes Notes (Text): Patient seen and examined by me with resident at 11:30 AM on 03/31/18. Case including HPI, physical exam, and assessment and plan discussed with resident. Agree with above with following additions/corrections. Patient is a 47-year-old male with past medical history significant for polysubstance abuse, sciatica, hepatitis C, left hip septic joint status post washout that presented to the emergency room with left hip pain. Patient states he is feeling much better. States he no longer feels like he is withdrawing. Complain of left hip pain. Also states his abdomen feels "hard." Denies pain. States he is having "liquid bowel movements." Sore throat is better. Patient is tolerating diet. No nausea or vomiting. Patient denies chest pain and shortness of breath. No headaches or dizziness. No lightheadedness. No change in vision. No dysuria. Physical exam: General: Awake and alert, lying in bed in no acute distress. HEENT: Normocephalic, atraumatic, Extraocular muscles intact, pupils equal and reactive, no scleral icterus. Oropharynx is pink and moist. No pharyngeal erythema or exudate appreciated. Neck is supple. Cardiovascular: Normal rhythm. Normal S1 and S2. No murmus, rubs, or gallops appreciated. Pulmonary: Normal respiratory effort. No rhonchi, rales, or wheezing appreciated. Gastrointestinal: Soft. Mild distention. No tenderness. Drain with purulent discharge on right. Positive bowel sounds all 4 quadrants. No guarding. Musculoskeletal: Moves all extremities. No calf tenderness. Bilateral lower e xtremity pittng edema. Left hip tenderness. Central nervous system: AAO x3, CN2-12 grossly intact. Dermatologic: Skin warm and dry. Assessment and plan: Patient is a 47-year-old male with past medical history significant for polysubstance abuse, sciatica, hepatitis C, left hip septic joint status post washout that presented to the emergency room with left hip pain. 1. Dysphagia. Sore throat. Improved. Seen by speech and swallow who recommend advance bite size with thin liquids. Continue cepacol as needed. 2. Liver abscess. Status post liver abscess drainage and drain placement, cultures positive for E. Coli. Continue Zosyn. Afebrile. No leukocytosis. Blood cultures with no growth. CT abdomen and pelvis per radiologist showed large 20 x 9.3 cm subcapsular hepatic abscess, a few tiny foci of air in the right upper quadrant which may be intraperitoneal, left groin 4.1 x 2.7 cm abscess, chronic osteomyelitis and septic arthritis of the left hip. IR following, recommendations appreciated. Patient will need repeat CT scan. ID following, recommendations appreciated. Surgery following, recommendations appreciated. 3. Left hip chronic osteomyelitis, septic arthritis, left groin abscess. Continue Zosyn. Patient noncompliant with medications from initial diagnosis. Ortho recommendations appreciated. IR following, per IR there is no new collection that necessitates aspiration or drainage. 4. Diarrhea. Pending c-diff 5. Bilateral lower extremity venous dopplers. No DVT seen on venous doppler of bilateral lower extremities. 6. Thrombocytosis. Likely reactive. Downtrending. Continue to monitor 7. Anemia. Chronic. H&H stable. Continue to monitor CBC 8. Medication noncompliance. Patient was non compliant with medications and follow up at last discharge, patient counseled at length on importance of medication compliance. 9. Hypokalemia. Resolved. Continue to monitor 10. Hepatitis C. Patient to follow up outpatient for treatment. 11. IVDA. Patient counseled at length on cessation. 12. GI/DVT prophylaxis. Protonix/heparin Case was discussed in detail with patient regarding current diagnosis and treatment plan. All questions answered.
--- NOTE | 2018-03-31 14:44 | CON ---
DATE: 03/31/2018 TIME: 10:30 a.m. I recognized Mr. Ely from involvement in this case 1 month ago. He is an IV drug abuser, who had surgical drainage of a septic left hip by orthopedic surgery approximately 1 month ago. On this admission, he was noted to have a large perihepatic abscess, which was percutaneously drained. This is growing gram-positive cocci. I reviewed his imaging. His left hip demonstrates obvious inflammatory changes, but there is no new collection that necessitates aspiration or drainage at this time. He is being followed by the ortho service. Mr. Ely should have a followup abdominal CT scan to evaluate adequate drainage of the perihepatic abscess. No additional interventional procedures are necessitated at this time. He is on appropriate antibiotics per ID. David Polanco MD MTDReanna
--- NOTE | 2018-03-31 15:48 | RAD ---
Date of service: 03/31/2018 HISTORY: abdominal distention COMPARISON: CT 03/28/2018 FINDINGS: BOWEL: There is a pigtail catheter in the abscess collection in the right upper quadrant. The stomach is mildly distended. No evidence of obstruction BONES: Normal. OTHER FINDINGS: None. IMPRESSION: There is a pigtail catheter in the abscess collection in the right upper quadrant. The stomach is mildly distended. No evidence of obstruction
--- NOTE | 2018-03-31 18:33 | PN ---
DATE: 03/31/2018 SUBJECTIVE: The patient is in bed, in no acute distress, nontoxic. The patient is seen earlier. PHYSICAL EXAMINATION: VITAL SIGNS: Temperature is 98, blood pressure is 125/70, respiratory rate of 18, heart rate of 87. HEENT: Unremarkable. NECK: Supple. LUNGS: Have decreased breath sounds. HEART: Normal S1 and S2. ABDOMEN: Soft, nontender. LABORATORY DATA: Reveals a white count of 7, hemoglobin of 9, platelets of 642. Chemistries reveals a BUN of 9, creatinine of 0.6. Procalcitonin is 1.0. Microbiology reveals pansensitive E. coli. Review of orders reveals Zosyn. MRSA screen is negative. ASSESSMENT AND PLAN: He is a 47-year-old male, seen earlier today with liver abscess with Escherichia coli, status post CT-guided aspiration on the Gram stain. There was also gram-positive cocci in chains. We will continue treating with Zosyn. Will need repeat imaging and CAT scan to see the size of the abscess and we will make further recommendations based on response and repeat imaging. Ty Will MD
[2018-04-01] MEDS: Piperacillin/Tazobact 3.375 gm 100 ML IVPB SCH ×5 (03:06→23:28)
[2018-04-01] MEDS: Morphine 2 mg/ml ISec IVP PRN ×4 (04:11→23:29)
[2018-04-01 06:50] LABS: BASO # 0.02 K/mm3 (0.0-2.0); BASO % 0.3 % (0.0-3.0); EOS # 0.2 (0.0-0.7); EOS % 2.5 % (1.5-5.0); GRAN # 4.35 (1.4-6.5); LYMPH % 26.3 % (22.0-35.0); MEAN CORPUSCULAR HEMOGLOBIN 22.9 pg (25.0-35.0); MEAN CORPUSCULAR HGB CONC 31.4 g/dl (31.0-37.0); MEAN PLATELET VOLUME 8.1 fl (7.0-11.0); MONO % 12.9 % (1.0-6.0); RBC 3.93 10^6/uL (3.5-6.1); RED CELL DISTRIBUTION WIDTH 19.3 % (11.5-14.5); WHITE BLOOD COUNT 7.5 10^3/uL (4.5-11.0)
[2018-04-01 07:22] LABS: ALB/GLOB RATIO 0.6 (1.1-1.8); ALT/SGPT 25 U/L (7-56); AST/SGOT 36 U/L (17-59); BLOOD UREA NITROGEN 10 mg/dL (7-21); CALCIUM 8.4 mg/dL (8.4-10.5); GFR NON-AFRICAN AMERICAN > 60
[2018-04-01] MEDS: Pantoprazole 40 mg EC Tab PO SCH ×2 (07:48→09:02)
[2018-04-01] MEDS ORDERED: Iohexol 350 MG/100 ML VIAL ONE (08:22)
--- NOTE | 2018-04-01 13:30 | CP.PCM.PN ---
Subjective - Date & Time of Evaluation Date of Evaluation: 04/01/18 Time of Evaluation: 09:30 - Subjective Subjective: No abdominal pain, no fevers, eager to have the abdominal drain removed but explained to patient that there is still drainage and it needs to stay for now. Objective - Vital Signs/Intake and Output Vital Signs (last 24 hours): Temp Pulse Resp BP Pulse Ox 98.7 F 76 20 130/87 98 04/01/18 06:00 04/01/18 06:00 04/01/18 06:00 04/01/18 06:00 04/01/18 06:00 - Medications Medications: Current Medications Acetaminophen (Tylenol 325mg Tab) 650 mg PO Q6H PRN PRN Reason: Fever >100.4 F Last Admin: 03/27/18 23:15 Dose: 650 mg Benzocaine/Menthol (Cepacol Sore Throat) 1 nelson MT Q2H PRN PRN Reason: Sore Throat Last Admin: 03/31/18 03:20 Dose: 1 nelson Heparin Sodium (Porcine) (Heparin) 5,000 units SC Q8 KIMBERLEE; Protocol Last Admin: 04/01/18 07:30 Dose: Not Given Piperacillin Sod/Tazobactam Sod (Zosyn 3.375 In Ns 100ml) 100 mls @ 200 mls/hr IVPB Q6 KIMBERLEE; Protocol Stop: 04/04/18 18:01 Last Admin: 04/01/18 09:02 Dose: 200 mls/hr Morphine Sulfate (Morphine) 1 mg IVP Q6H PRN PRN Reason: Pain, severe (8-10) Last Admin: 04/01/18 04:11 Dose: 1 mg Ondansetron HCl (Zofran Inj) 4 mg IVP Q6H PRN PRN Reason: Nausea/Vomiting Last Admin: 03/28/18 14:06 Dose: 4 mg Pantoprazole Sodium (Protonix Ec Tab) 40 mg PO 0600 KIMBERLEE Last Admin: 04/01/18 09:02 Dose: 40 mg Tramadol HCl (Ultram) 50 mg PO TID PRN PRN Reason: Pain, moderate (4-7) - Labs Labs: 04/01/18 06:20 04/01/18 06:20 PT 14.2 SECONDS (9.4-12.5) H 03/28/18 06:30 INR 1.23 03/28/18 06:30 APTT 26.1 Seconds (25.1-36.5) 03/28/18 06:30 - Constitutional Appears: Non-toxic, No Acute Distress, Chronically Ill - Head Exam Head Exam: NORMAL INSPECTION - ENT Exam ENT Exam: Mucous Membranes Moist - Neck Exam Neck Exam: absent: Meningismus - Respiratory Exam Respiratory Exam: Decreased Breath Sounds - Cardiovascular Exam Cardiovascular Exam: +S1, +S2 - GI/Abdominal Exam GI & Abdominal Exam: Soft. absent: Tenderness Additional comments: right upper quadrant abdominal drain in place Assessment and Plan - Assessment and Plan (Free Text) Plan: Assessment liver abscess and left groin abscess S/P CT-guided drainage, growing E. coli history of sepsis due to Staph aureus and gram negative bacilli bacteremia with right hand and wrist skin and skin structure infection dyslipidemia hepatitis C infection history of IV drug use chronic alcohol abuse Plan continue Zosyn (day 5 from time of drainage of abscess); blood cx are negative; will need repeat CT A/P to see how long we still need to continue antibiotics Hepatitis C infection should be addressed as an outpatient
--- NOTE | 2018-04-01 16:05 | CT ---
Date of service: 04/01/2018 PROCEDURE: CT Abdomen and Pelvis with contrast HISTORY: liver abscess COMPARISON: 03/25/2018 TECHNIQUE: Contrast dose: 100 cc of Omni 350 Radiation dose: Total exam DLP = 457.83 mGy-cm. This CT exam was performed using one or more of the following dose reduction techniques: Automated exposure control, adjustment of the mA and/or kV according to patient size, and/or use of iterative reconstruction technique. FINDINGS: LOWER THORAX: Unremarkable. LIVER: There is no significant change in the size of the subcapsular abscess in the right lobe of the liver. A pigtail drainage catheter is seen in place. There is a fluid level. The largest portion of the collection measures 14 x 8 cm. There is a smaller loculation more anterior and inferior measuring 3.5 x 7.3 cm. GALLBLADDER AND BILE DUCTS: Unremarkable. PANCREAS: Unremarkable. No gross lesion or ductal dilatation. SPLEEN: Unremarkable. ADRENALS: Unremarkable. No mass. KIDNEYS AND URETERS: Unremarkable. No hydronephrosis. No solid mass. VASCULATURE: Unremarkable. No aortic aneurysm. No aortic atherosclerotic calcification or mural plaque present. BOWEL: Unremarkable. No obstruction. No gross mural thickening. APPENDIX: Normal appendix. PERITONEUM: There is moderate ascites LYMPH NODES: Unremarkable. No enlarged lymph nodes. BLADDER: Unremarkable. REPRODUCTIVE: Unremarkable. BONES: No acute fracture. OTHER FINDINGS: None. IMPRESSION: There is no significant change in the size of the subcapsular abscess in the right lobe of the liver. A pigtail drainage catheter is seen in place. There is a fluid level. The largest portion of the collection measures 14 x 8 cm. There is a smaller loculation more anterior and inferior measuring 3.5 x 7.3 cm.
--- NOTE | 2018-04-01 17:24 | CP.PCM.PN ---
<Sean Tellez - Last Filed: 04/01/18 17:00> Subjective - Date & Time of Evaluation Date of Evaluation: 04/01/18 Time of Evaluation: 08:25 - Subjective Subjective: Pt seen and examined at bedside this morning. Pt has no new complaints at this time. Objective - Vital Signs/Intake and Output Vital Signs (last 24 hours): Temp Pulse Resp BP Pulse Ox 98.7 F 76 20 130/87 98 04/01/18 06:00 04/01/18 06:00 04/01/18 06:00 04/01/18 06:00 04/01/18 06:00 - Medications Medications: Current Medications Acetaminophen (Tylenol 325mg Tab) 650 mg PO Q6H PRN PRN Reason: Fever >100.4 F Last Admin: 03/27/18 23:15 Dose: 650 mg Benzocaine/Menthol (Cepacol Sore Throat) 1 nelson MT Q2H PRN PRN Reason: Sore Throat Last Admin: 03/31/18 03:20 Dose: 1 nelson Heparin Sodium (Porcine) (Heparin) 5,000 units SC Q8 KIMBERLEE; Protocol Last Admin: 04/01/18 14:47 Dose: 5,000 units Piperacillin Sod/Tazobactam Sod (Zosyn 3.375 In Ns 100ml) 100 mls @ 200 mls/hr IVPB Q6 KIMBERLEE; Protocol Stop: 04/04/18 18:01 Last Admin: 04/01/18 14:47 Dose: 200 mls/hr Morphine Sulfate (Morphine) 1 mg IVP Q6H PRN PRN Reason: Pain, severe (8-10) Last Admin: 04/01/18 10:58 Dose: 1 mg Ondansetron HCl (Zofran Inj) 4 mg IVP Q6H PRN PRN Reason: Nausea/Vomiting Last Admin: 03/28/18 14:06 Dose: 4 mg Pantoprazole Sodium (Protonix Ec Tab) 40 mg PO 0600 KIMBERLEE Last Admin: 04/01/18 09:02 Dose: 40 mg Tramadol HCl (Ultram) 50 mg PO TID PRN PRN Reason: Pain, moderate (4-7) - Labs Labs: 04/01/18 06:20 04/01/18 06:20 PT 14.2 SECONDS (9.4-12.5) H 03/28/18 06:30 INR 1.23 03/28/18 06:30 APTT 26.1 Seconds (25.1-36.5) 03/28/18 06:30 - Head Exam Head Exam: ATRAUMATIC, NORMOCEPHALIC - Eye Exam Eye Exam: EOMI - ENT Exam ENT Exam: Mucous Membranes Moist - Neck Exam Neck Exam: Full ROM - Respiratory Exam Respiratory Exam: Clear to Ausculation Bilateral, NORMAL BREATHING PATTERN. absent: Accessory Muscle Use - Cardiovascular Exam Cardiovascular Exam: +S1, +S2. absent: Diastolic murmur - GI/Abdominal Exam GI & Abdominal Exam: Soft. absent: Tenderness - Extremities Exam Extremities Exam: Full ROM. absent: Calf Tenderness - Neurological Exam Neurological Exam: Alert, Awake, Oriented x3 - Psychiatric Exam Psychiatric exam: Normal Affect, Normal Mood - Skin Skin Exam: Dry, Normal Color, Warm Assessment and Plan - Assessment and Plan (Free Text) Assessment: Pt is a 47 y o male with a PMHx of substance abuse, sciatica, Hepatitis C, Left hip septic joint, and liver abscess who presented to the ED complaining of pain in his left hip. Plan: Liver abscess/ L Hip Abscess/ Left Groin Abscess - Blood Cultures negative to date - IR drained liver abscess on 03/28/18, cultures growing E. coli - Morphine prn for pain - Tramadol for breakthrough pain - CTAP there is no significant change in the size of the subcapsular abscess in the right lobe of the liver. - ID consulted, Zosyn - Gen surg consulted, Dr. Hsu - Ortho consulted, Dr. Day, recs appreciated. Spoke with Dr. Day, no acute surgical intervention from his end and continue with antibiotic therapy - IR consulted, rec repeat CT Diarrhea - follow up c diff Odynophagia - cepacol - improved Thrombocytosis - Plts 597, improving - Likely 2/2 to liver abscess - will continue to monitor Hypokalemia - K 4.5 - replete PRN - continue to monitor Anemia - Hgb 9.0, at baseline - Continue to monitor Hx of Hep C - Recommend treatment as out pt - encourage cessation of IVDA Ppx - Protonix - SCDs, Heparin - encourage incentive spirometry Pt seen, examined, assessment and plan discussed with Dr Cassie Tellez PGY1, Internal Medicine Resident <Cassie Alba R - Last Filed: 04/03/18 18:38> Objective - Vital Signs/Intake and Output Vital Signs (last 24 hours): Temp Pulse Resp BP Pulse Ox 99 F 86 20 122/85 97 04/03/18 14:00 04/03/18 14:00 04/03/18 14:00 04/03/18 14:00 04/03/18 14:00 Intake and Output: 04/03/18 04/03/18 06:59 18:59 Intake Total 480 Output Total 600 Balance -120 - Medications Medications: Current Medications Acetaminophen (Tylenol 325mg Tab) 650 mg PO Q6H PRN PRN Reason: Fever >100.4 F Last Admin: 04/02/18 23:16 Dose: 650 mg Benzocaine/Menthol (Cepacol Sore Throat) 1 nelson MT Q2H PRN PRN Reason: Sore Throat Last Admin: 03/31/18 03:20 Dose: 1 nelson Heparin Sodium (Porcine) (Heparin) 5,000 units SC Q8 KIMBERLEE; Protocol Last Admin: 04/03/18 16:34 Dose: 5,000 units Piperacillin Sod/Tazobactam Sod (Zosyn 3.375 In Ns 100ml) 100 mls @ 25 mls/hr IVPB Q8 KIMBERLEE; Protocol Stop: 04/30/18 22:16 Last Admin: 04/03/18 16:34 Dose: 25 mls/hr Morphine Sulfate (Morphine) 1 mg IVP Q6H PRN PRN Reason: Pain, severe (8-10) Last Admin: 04/03/18 18:31 Dose: 1 mg Ondansetron HCl (Zofran Inj) 4 mg IVP Q6H PRN PRN Reason: Nausea/Vomiting Last Admin: 03/28/18 14:06 Dose: 4 mg Pantoprazole Sodium (Protonix Ec Tab) 40 mg PO 0600 KIMBERLEE Last Admin: 04/03/18 06:36 Dose: 40 mg Tramadol HCl (Ultram) 50 mg PO TID PRN PRN Reason: Pain, moderate (4-7) Last Admin: 04/03/18 17:43 Dose: 50 mg - Labs Labs: 04/03/18 07:00 04/03/18 07:00 PT 14.2 SECONDS (9.4-12.5) H 03/28/18 06:30 INR 1.23 03/28/18 06:30 APTT 26.1 Seconds (25.1-36.5) 03/28/18 06:30 Attending/Attestation - Attestation I have personally seen and examined this patient.: Yes I have fully participated in the care of the patient.: Yes I have reviewed all pertinent clinical information, including history, physical exam and plan: Yes Notes (Text): Patient seen and examined by me with resident at 9:15AM on 04/01/18. Case including HPI, physical exam, and assessment and plan discussed with resident. Agree with above with following additions/corrections. Patient is a 47-year-old male with past medical history significant for polysubstance abuse, sciatica, hepatitis C, left hip septic joint status post washout that presented to the emergency room with left hip pain. Patient states he is feeling ok. Patient denies abdominal pain but has continued left hip pain. Patient states he refused CT abd/pelvis this morning because he wanted to eat. No nausea or vomiting. No chest pain or shortness of breath. No headaches or dizziness. No lightheadedness. No change in vision. No dysuria. No bowel movement today. Physical exam: General: Awake and alert, lying in bed in no acute distress. HEENT: Normocephalic, atraumatic, Extraocular muscles intact, pupils equal and reactive, no scleral icterus. Oropharynx is pink and moist. No pharyngeal erythema or exudate appreciated. Neck is supple. Cardiovascular: Normal rhythm. Normal S1 and S2. No murmus, rubs, or gallops appreciated. Pulmonary: Normal respiratory effort. No rhonchi, rales, or wheezing appreciated. Gastrointestinal: Soft. Nondistended No tenderness. Drain on right with purulent discharge. Positive bowel sounds all 4 quadrants. No guarding. Musculoskeletal: Moves all extremities. No calf tenderness. Bilateral lower extremity pittng edema. Left hip tenderness. Central nervous system: AAO x3, CN2-12 grossly intact. Dermatologic: Skin warm and dry. Assessment and plan: Patient is a 47-year-old male with past medical history significant for polysubstance abuse, sciatica, hepatitis C, left hip septic joint status post washout that presented to the emergency room with left hip pain. 1. Liver abscess.Repeat CT abd/pelvis pending. Status post liver abscess drainage and drain placement, cultures positive for E. Coli. Continue Zosyn. Afebrile. No leukocytosis. Blood cultures with no growth. CT abdomen and pelvis per radiologist showed large 20 x 9.3 cm subcapsular hepatic abscess, a few tiny foci of air in the right upper quadrant which may be intraperitoneal, left groin 4.1 x 2.7 cm abscess, chronic osteomyelitis and septic arthritis of the left hip. IR following, recommendations appreciated. ID following, recommendations appreciated. Surgery recommendations appreciated. 2. Dysphagia. Sore throat. Resolved. Seen by speech and swallow who recommend advance bite size with thin liquids. Continue cepacol as needed. 3. Left hip chronic osteomyelitis, septic arthritis, left groin abscess. Continue Zosyn. Patient noncompliant with medications after initial diagnosis and did not take antibiotics. Ortho recommendations appreciated.IR following, per IR there is no new collection that necessitates aspiration or drainage. 4. Diarrhea. Resolved. Pending c-diff 5. Bilateral lower extremity edema. No DVT seen on venous doppler of bilateral lower extremities. 6. Thrombocytosis. Likely reactive. Downtrending. Continue to monitor 7. Anemia. Chronic. H&H stable. Continue to monitor CBC 8. Medication noncompliance. Patient was noncompliant with medications and follow up at last discharge, patient counseled at length on importance of medication compliance. 9. Hypokalemia. Resolved. Continue to monitor 10. Hepatitis C. Patient to follow up outpatient for treatment. 11. IVDA. Patient counseled at length on cessation. 12. GI/DVT prophylaxis. Protonix/heparin Case was discussed in detail with patient regarding current diagnosis and treatment plan. All questions answered.
[2018-04-02] MEDS: Morphine 2 mg/ml ISec IVP PRN ×3 (06:13→18:29)
[2018-04-02] MEDS: Piperacillin/Tazobact 3.375 gm 100 ML IVPB SCH ×4 (06:17→22:55)
[2018-04-02] MEDS: Pantoprazole 40 mg EC Tab PO SCH (06:17)
[2018-04-02 07:10] LABS: ALB/GLOB RATIO 0.6 (1.1-1.8); ALBUMIN 2.7 g/dL (3.0-4.8); ALT/SGPT 29 U/L (7-56); AST/SGOT 42 U/L (17-59); BLOOD UREA NITROGEN 7 mg/dL (7-21); CALCIUM 8.3 mg/dL (8.4-10.5); GFR NON-AFRICAN AMERICAN > 60
[2018-04-02 07:37] LABS: BASO # 0.01 K/mm3 (0.0-2.0); BASO % 0.2 % (0.0-3.0); EOS # 0.2 (0.0-0.7); EOS % 3.3 % (1.5-5.0); GRAN # 3.21 (1.4-6.5); LYMPH # 1.9 (1.2-3.4); LYMPH % 29.3 % (22.0-35.0); MEAN CELL VOLUME 72.9 fl (80.0-105.0); MEAN CORPUSCULAR HEMOGLOBIN 22.2 pg (25.0-35.0); MEAN CORPUSCULAR HGB CONC 30.4 g/dl (31.0-37.0); MEAN PLATELET VOLUME 8.1 fl (7.0-11.0); MONO # 1.1 (0.1-0.6); MONO % 17.2 % (1.0-6.0); RBC 3.61 10^6/uL (3.5-6.1); RED CELL DISTRIBUTION WIDTH 19.3 % (11.5-14.5); WHITE BLOOD COUNT 6.4 10^3/uL (4.5-11.0)
--- NOTE | 2018-04-02 11:47 | CP.PCM.PN ---
<Sean Tellez - Last Filed: 04/02/18 12:00> Subjective - Date & Time of Evaluation Date of Evaluation: 04/02/18 Time of Evaluation: 09:15 - Subjective Subjective: Pt seen and examined this morning. Pt denies chest pain, SOB, nausea or vomiting. Objective - Vital Signs/Intake and Output Vital Signs (last 24 hours): Temp Pulse Resp BP Pulse Ox 98.7 F 84 18 115/80 97 04/02/18 06:00 04/02/18 06:00 04/02/18 06:00 04/02/18 06:00 04/02/18 06:00 Intake and Output: 04/02/18 04/02/18 06:59 18:59 Intake Total 480 Output Total 600 Balance -120 - Medications Medications: Current Medications Acetaminophen (Tylenol 325mg Tab) 650 mg PO Q6H PRN PRN Reason: Fever >100.4 F Last Admin: 04/01/18 21:26 Dose: 650 mg Benzocaine/Menthol (Cepacol Sore Throat) 1 nelson MT Q2H PRN PRN Reason: Sore Throat Last Admin: 03/31/18 03:20 Dose: 1 nelson Heparin Sodium (Porcine) (Heparin) 5,000 units SC Q8 KIMBERLEE; Protocol Last Admin: 04/02/18 06:16 Dose: 5,000 units Piperacillin Sod/Tazobactam Sod (Zosyn 3.375 In Ns 100ml) 100 mls @ 200 mls/hr IVPB Q6 KIMBERLEE; Protocol Stop: 04/04/18 18:01 Last Admin: 04/02/18 11:35 Dose: 200 mls/hr Morphine Sulfate (Morphine) 1 mg IVP Q6H PRN PRN Reason: Pain, severe (8-10) Last Admin: 04/02/18 11:27 Dose: 1 mg Ondansetron HCl (Zofran Inj) 4 mg IVP Q6H PRN PRN Reason: Nausea/Vomiting Last Admin: 03/28/18 14:06 Dose: 4 mg Pantoprazole Sodium (Protonix Ec Tab) 40 mg PO 0600 KIMBERLEE Last Admin: 04/02/18 06:17 Dose: Not Given Tramadol HCl (Ultram) 50 mg PO TID PRN PRN Reason: Pain, moderate (4-7) - Labs Labs: 04/02/18 07:00 04/02/18 06:00 PT 14.2 SECONDS (9.4-12.5) H 03/28/18 06:30 INR 1.23 03/28/18 06:30 APTT 26.1 Seconds (25.1-36.5) 03/28/18 06:30 - Head Exam Head Exam: ATRAUMATIC, NORMOCEPHALIC - Eye Exam Eye Exam: EOMI - ENT Exam ENT Exam: Mucous Membranes Moist - Neck Exam Neck Exam: Full ROM - Respiratory Exam Respiratory Exam: Clear to Ausculation Bilateral, NORMAL BREATHING PATTERN. absent: Accessory Muscle Use - Cardiovascular Exam Cardiovascular Exam: RRR, +S1, +S2 - GI/Abdominal Exam GI & Abdominal Exam: Soft, Normal Bowel Sounds - Extremities Exam Extremities Exam: Full ROM - Neurological Exam Neurological Exam: Alert, Awake, Oriented x3 - Psychiatric Exam Psychiatric exam: Normal Affect, Normal Mood - Skin Skin Exam: Dry, Normal Color, Warm Assessment and Plan - Assessment and Plan (Free Text) Assessment: Pt is a 47 y o male with a PMHx of substance abuse, sciatica, Hepatitis C, Left hip septic joint, and liver abscess who presented to the ED complaining of pain in his left hip. Plan: Liver abscess/ L Hip Abscess/ Left Groin Abscess - IR drained liver abscess on 03/28/18, cultures growing E. coli - Morphine prn for pain, Tramadol for breakthrough pain - CTAP there is no significant change in the size of the subcapsular abscess in the right lobe of the liver. - will have IR reevaluate pt on Wednesday as liver abcsess - ID consulted, Zosyn - Gen surg consulted, Dr. Hsu - Ortho consulted, Dr. Day, recs appreciated. Dr. Day, no acute surgical intervention from his end and continue with antibiotic therapy Diarrhea - follow up c diff Thrombocytosis - Plts 579, improving - likely due to inflammation, acute phase reactant Hypokalemia - K 4.5, replete PRN Anemia - Hgb 8.0, at baseline - Continue to monitor Hx of Hep C - Recommend treatment as out pt - encourage cessation of IVDA Ppx - Protonix - SCDs, Heparin - encourage incentive spirometry Pt seen, examined, assessment and plan discussed with Dr Cassie Tellez PGY1, Internal Medicine Resident <Cassie Alba R - Last Filed: 04/03/18 18:45> Objective - Vital Signs/Intake and Output Vital Signs (last 24 hours): Temp Pulse Resp BP Pulse Ox 99 F 86 20 122/85 97 04/03/18 14:00 04/03/18 14:00 04/03/18 14:00 04/03/18 14:00 04/03/18 14:00 Intake and Output: 04/03/18 04/03/18 06:59 18:59 Intake Total 480 Output Total 600 Balance -120 - Medications Medications: Current Medications Acetaminophen (Tylenol 325mg Tab) 650 mg PO Q6H PRN PRN Reason: Fever >100.4 F Last Admin: 04/02/18 23:16 Dose: 650 mg Benzocaine/Menthol (Cepacol Sore Throat) 1 nelson MT Q2H PRN PRN Reason: Sore Throat Last Admin: 03/31/18 03:20 Dose: 1 nelson Heparin Sodium (Porcine) (Heparin) 5,000 units SC Q8 KIMBERLEE; Protocol Last Admin: 04/03/18 16:34 Dose: 5,000 units Piperacillin Sod/Tazobactam Sod (Zosyn 3.375 In Ns 100ml) 100 mls @ 25 mls/hr IVPB Q8 KIMBERLEE; Protocol Stop: 04/30/18 22:16 Last Admin: 04/03/18 16:34 Dose: 25 mls/hr Morphine Sulfate (Morphine) 1 mg IVP Q6H PRN PRN Reason: Pain, severe (8-10) Last Admin: 04/03/18 18:31 Dose: 1 mg Ondansetron HCl (Zofran Inj) 4 mg IVP Q6H PRN PRN Reason: Nausea/Vomiting Last Admin: 03/28/18 14:06 Dose: 4 mg Pantoprazole Sodium (Protonix Ec Tab) 40 mg PO 0600 KIMBERLEE Last Admin: 04/03/18 06:36 Dose: 40 mg Tramadol HCl (Ultram) 50 mg PO TID PRN PRN Reason: Pain, moderate (4-7) Last Admin: 04/03/18 17:43 Dose: 50 mg - Labs Labs: 04/03/18 07:00 04/03/18 07:00 PT 14.2 SECONDS (9.4-12.5) H 12/31/18 06:30 INR 1.23 03/28/18 06:30 APTT 26.1 Seconds (25.1-36.5) 03/28/18 06:30 Attending/Attestation - Attestation I have personally seen and examined this patient.: Yes I have fully participated in the care of the patient.: Yes I have reviewed all pertinent clinical information, including history, physical exam and plan: Yes Notes (Text): Patient seen and examined by me with resident at 9:30AM on 04/02/18. Case including HPI, physical exam, and assessment and plan discussed with resident. Agree with above with following additions/corrections. Patient is a 47-year-old male with past medical history significant for polys ubstance abuse, sciatica, hepatitis C, left hip septic joint status post washout that presented to the emergency room with left hip pain. Patient states he feels ok. Still with continued left hip pain. Denies abdominal pain. No nausea or vomiting. No chest pain or shortness of breath. No headaches or dizziness. No lightheadedness. No change in vision. No dysuria. No bowel movement in 2 days. Patient had low grade fever last night. Physical exam: General: Awake and alert, lying in bed in no acute distress. HEENT: Normocephalic, atraumatic, Extraocular muscles intact, pupils equal and reactive, no scleral icterus. Oropharynx is pink and moist. No pharyngeal erythema or exudate appreciated. Neck is supple. Cardiovascular: Normal rhythm. Normal S1 and S2. No murmus, rubs, or gallops appreciated. Pulmonary: Normal respiratory effort. No rhonchi, rales, or wheezing appreciated. Gastrointestinal: Soft. Nondistended No tenderness. Drain on right with purulent discharge. Positive bowel sounds all 4 quadrants. No guarding. Musculoskeletal: Moves all extremities. No calf tenderness. Bilateral lower extremity pittng edema. Left hip tenderness. Central nervous system: AAO x3, CN2-12 grossly intact. Dermatologic: Skin warm and dry. Assessment and plan: Patient is a 47-year-old male with past medical history significant for polysubstance abuse, sciatica, hepatitis C, left hip septic joint status post washout that presented to the emergency room with left hip pain. 1. Liver abscess.Repeat CT abd/pelvis per radiologist showed no significant change in the size of subcapsular abscess in the right lobe of the liver, a pigtail catheter is seen in place, there is a fluid level, the largest portion of the collection measures 14 x 8cm, there is a smaller loculation more anterior and inferior measuring 3.5 x 7.3 cm. Status post liver abscess drainage and drain placement, cultures positive for E. Coli. Continue Zosyn. Low grade fever last night. No leukocytosis. Blood cultures with no growth. Will need re- evaluation by IR on Wednesday. CT abdomen and pelvis per radiologist showed large 20 x 9.3 cm subcapsular hepatic abscess, a few tiny foci of air in the right upper quadrant which may be intraperitoneal, left groin 4.1 x 2.7 cm abscess, chronic osteomyelitis and septic arthritis of the left hip. IR following, recommendations appreciated. ID following, recommendations appreciated. Surgery recommendations appreciated. 2. Dysphagia. Sore throat. Resolved. Seen by speech and swallow who recommend advance bite size with thin liquids. Continue cepacol as needed. 3. Left hip chronic osteomyelitis, septic arthritis, left groin abscess. Continue Zosyn. Patient noncompliant with medications after initial diagnosis and did not take antibiotics. Ortho recommendations appreciated.IR following, per IR there is no new collection that necessitates aspiration or drainage. 4. Diarrhea. Resolved. Pending c-diff 5. Bilateral lower extremity edema. No DVT seen on venous doppler of bilateral lower extremities. 6. Thrombocytosis. Likely reactive. Downtrending. Continue to monitor 7. Anemia. Chronic. H&H stable. Continue to monitor CBC 8. Medication noncompliance. Patient was noncompliant with medications and follow up at last discharge, patient counseled at length on importance of medication compliance. 9. Hypokalemia. Resolved. Continue to monitor 10. Hepatitis C. Patient to follow up outpatient for treatment. 11. IVDA. Patient counseled at length on cessation. 12. GI/DVT prophylaxis. Protonix/heparin Case was discussed in detail with patient regarding current diagnosis and treatment plan. All questions answered.
--- NOTE | 2018-04-02 23:05 | PN ---
DATE: 04/02/2018 SUBJECTIVE: The patient is seen in bed, in no acute distress and nontoxic. PHYSICAL EXAMINATION VITAL SIGNS: The patient's temperature is 98, T-max yesterday was 100.4, heart rate of 93, blood pressure is 120/80. HEENT: Unremarkable. NECK: Supple. LUNGS: Have decreased breath sounds. HEART: Normal S1 and S2. ABDOMEN: Soft. LABORATORY DATA: Reveals the patient's white count of 6.4, hemoglobin of 8. Coagulation is noted. Chemistries reveals a BUN of 7, creatinine of 0.6. Toxicology is noted. Serology is reviewed. Microbiology is noted with E. coli and the abdominal fluid has sensitive E. coli and resistant to all the ampicillin. Review of orders: Reveals the patient's medication Zosyn has been discontinued by the pharmacy. ASSESSMENT AND PLAN: This is a 47-year-old male with liver abscess, has Escherichia coli, status post CAT scan guided growing sensitive Escherichia coli and gram-stain was positive for gram-positive cocci and today is day #6 of Zosyn. We will restart the Zosyn, the pharmacy has discontinued it, giving a dose at this hour and then the patient had a repeat CAT scan of the abdomen and pelvis yesterday, which revealed no significant change in the size of the abscess. Pigtail drainage catheter was seen fluid level. We will continue with Zosyn. Ty Will MD
[2018-04-03] MEDS: Morphine 2 mg/ml ISec IVP PRN ×4 (00:29→18:31)
[2018-04-03] MEDS: Pantoprazole 40 mg EC Tab PO SCH (06:36)
[2018-04-03] MEDS: Piperacillin/Tazobact 3.375 gm 100 ML IVPB SCH ×3 (06:37→23:06)
[2018-04-03 08:11] LABS: BASO # 0.01 K/mm3 (0.0-2.0); BASO % 0.1 % (0.0-3.0); EOS # 0.2 (0.0-0.7); EOS % 2.1 % (1.5-5.0); GRAN # 4.99 (1.4-6.5); GRAN % 61.9 % (50.0-68.0); HEMOGLOBIN 8.8 g/dL (14.0-18.0); LYMPH # 1.9 (1.2-3.4); LYMPH % 23.5 % (22.0-35.0); MEAN CELL VOLUME 72.8 fl (80.0-105.0); MEAN CORPUSCULAR HEMOGLOBIN 22.6 pg (25.0-35.0); MEAN PLATELET VOLUME 8.1 fl (7.0-11.0); MONO % 12.4 % (1.0-6.0); RBC 3.9 10^6/uL (3.5-6.1); RED CELL DISTRIBUTION WIDTH 19.5 % (11.5-14.5); WHITE BLOOD COUNT 8.1 10^3/uL (4.5-11.0)
[2018-04-03 08:27] LABS: ALB/GLOB RATIO 0.6 (1.1-1.8); ALT/SGPT 25 U/L (7-56); AST/SGOT 46 U/L (17-59); BLOOD UREA NITROGEN 6 mg/dL (7-21); CALCIUM 8.5 mg/dL (8.4-10.5); GFR NON-AFRICAN AMERICAN > 60
--- NOTE | 2018-04-03 13:08 | CP.PCM.PN ---
<Sean Tellez - Last Filed: 04/03/18 13:23> Subjective - Date & Time of Evaluation Date of Evaluation: 04/03/18 Time of Evaluation: 10:00 - Subjective Subjective: Pt seen and examined. Pt states his drain has been leaking. Pt denies SOB, chest pain, nausea or vomiting. Objective - Vital Signs/Intake and Output Vital Signs (last 24 hours): Temp Pulse Resp BP Pulse Ox 98.4 F 83 20 120/87 95 04/03/18 06:00 04/03/18 06:00 04/03/18 06:00 04/03/18 06:00 04/03/18 06:00 Intake and Output: 04/03/18 04/03/18 06:59 18:59 Intake Total 480 Output Total 600 Balance -120 - Medications Medications: Current Medications Acetaminophen (Tylenol 325mg Tab) 650 mg PO Q6H PRN PRN Reason: Fever >100.4 F Last Admin: 04/02/18 23:16 Dose: 650 mg Benzocaine/Menthol (Cepacol Sore Throat) 1 nelson MT Q2H PRN PRN Reason: Sore Throat Last Admin: 03/31/18 03:20 Dose: 1 nelson Heparin Sodium (Porcine) (Heparin) 5,000 units SC Q8 KIMBERLEE; Protocol Last Admin: 04/03/18 06:36 Dose: 5,000 units Piperacillin Sod/Tazobactam Sod (Zosyn 3.375 In Ns 100ml) 100 mls @ 25 mls/hr IVPB Q8 KIMBERLEE; Protocol Stop: 04/30/18 22:16 Last Admin: 04/03/18 06:37 Dose: 25 mls/hr Morphine Sulfate (Morphine) 1 mg IVP Q6H PRN PRN Reason: Pain, severe (8-10) Last Admin: 04/03/18 12:27 Dose: 1 mg Ondansetron HCl (Zofran Inj) 4 mg IVP Q6H PRN PRN Reason: Nausea/Vomiting Last Admin: 03/28/18 14:06 Dose: 4 mg Pantoprazole Sodium (Protonix Ec Tab) 40 mg PO 0600 KIMBERLEE Last Admin: 04/03/18 06:36 Dose: 40 mg Tramadol HCl (Ultram) 50 mg PO TID PRN PRN Reason: Pain, moderate (4-7) Last Admin: 04/03/18 10:20 Dose: 50 mg - Labs Labs: 04/03/18 07:00 04/03/18 07:00 PT 14.2 SECONDS (9.4-12.5) H 03/28/18 06:30 INR 1.23 03/28/18 06:30 APTT 26.1 Seconds (25.1-36.5) 03/28/18 06:30 - Constitutional Appears: No Acute Distress - Head Exam Head Exam: ATRAUMATIC, NORMOCEPHALIC - Eye Exam Eye Exam: EOMI - ENT Exam ENT Exam: Mucous Membranes Moist - Neck Exam Neck Exam: Full ROM - Respiratory Exam Respiratory Exam: Clear to Ausculation Bilateral, NORMAL BREATHING PATTERN. absent: Accessory Muscle Use - Cardiovascular Exam Cardiovascular Exam: RRR, +S1, +S2. absent: Diastolic murmur - GI/Abdominal Exam GI & Abdominal Exam: Soft, Normal Bowel Sounds - Extremities Exam Extremities Exam: absent: Pedal Edema - Neurological Exam Neurological Exam: Alert, Awake, Oriented x3 - Psychiatric Exam Psychiatric exam: Normal Affect, Normal Mood - Skin Skin Exam: Dry, Intact, Warm Assessment and Plan - Assessment and Plan (Free Text) Assessment: Pt is a 47 y o male with a PMH of substance abuse, sciatica, Hepatitis C, Left hip septic joint, and liver abscess who presented to the ED complaining of pain in his left hip who was found to have a liver abscess. Plan: Liver abscess/ L Hip Abscess/ Left Groin Abscess - IR drained liver abscess on 03/28/18, cultures growing E. coli - CTAP there is no significant change in the size of the subcapsular abscess in the right lobe of the liver. - will request that IR reevaluates pt again tomorrow, abscess has stayed the same size on repeat CT. - NPO after midnight for IR procedure - Morphine, Tramadol for pain - ID consulted, Zosyn - Gen surg consulted, Dr. Hsu - Ortho consulted, Dr. Day Thrombocytosis - Plts 618 - improving, continue to monitor Hypokalemia - K 4.2, replete PRN Anemia - Hgb 8.8, at baseline - Continue to monitor Diarrhea - c diff NEGATIVE Hx of Hep C - Recommend treatment as out pt - encourage cessation of IVDA Ppx - Protonix - SCDs, Heparin - encourage incentive spirometry Pt seen, examined, assessment and plan discussed with Dr Esperanza Tellez PGY1, Internal Medicine Resident <Rachel Mata - Last Filed: 04/03/18 14:43> Objective - Vital Signs/Intake and Output Vital Signs (last 24 hours): Temp Pulse Resp BP Pulse Ox 98.4 F 83 20 120/87 95 04/03/18 06:00 04/03/18 06:00 04/03/18 06:00 04/03/18 06:00 04/03/18 06:00 Intake and Output: 04/03/18 04/03/18 06:59 18:59 Intake Total 480 Output Total 600 Balance -120 - Medications Medications: Current Medications Acetaminophen (Tylenol 325mg Tab) 650 mg PO Q6H PRN PRN Reason: Fever >100.4 F Last Admin: 04/02/18 23:16 Dose: 650 mg Benzocaine/Menthol (Cepacol Sore Throat) 1 nelson MT Q2H PRN PRN Reason: Sore Throat Last Admin: 03/31/18 03:20 Dose: 1 nelson Heparin Sodium (Porcine) (Heparin) 5,000 units SC Q8 KIMBERLEE; Protocol Last Admin: 04/03/18 06:36 Dose: 5,000 units Piperacillin Sod/Tazobactam Sod (Zosyn 3.375 In Ns 100ml) 100 mls @ 25 mls/hr IVPB Q8 KIMBERLEE; Protocol Stop: 04/30/18 22:16 Last Admin: 04/03/18 06:37 Dose: 25 mls/hr Morphine Sulfate (Morphine) 1 mg IVP Q6H PRN PRN Reason: Pain, severe (8-10) Last Admin: 04/03/18 12:27 Dose: 1 mg Ondansetron HCl (Zofran Inj) 4 mg IVP Q6H PRN PRN Reason: Nausea/Vomiting Last Admin: 03/28/18 14:06 Dose: 4 mg Pantoprazole Sodium (Protonix Ec Tab) 40 mg PO 0600 KIMBERLEE Last Admin: 04/03/18 06:36 Dose: 40 mg Tramadol HCl (Ultram) 50 mg PO TID PRN PRN Reason: Pain, moderate (4-7) Last Admin: 04/03/18 10:20 Dose: 50 mg - Labs Labs: 04/03/18 07:00 04/03/18 07:00 PT 14.2 SECONDS (9.4-12.5) H 03/28/18 06:30 INR 1.23 03/28/18 06:30 APTT 26.1 Seconds (25.1-36.5) 03/28/18 06:30 Attending/Attestation - Attestation I have personally seen and examined this patient.: Yes I have fully participated in the care of the patient.: Yes I have reviewed all pertinent clinical information, including history, physical exam and plan: Yes Notes (Text): 04/03/18 14:21 Attending note; Patient seen and examined with resident. Complaining of mild leaking from the catheter site. Denies any fevers, chills. Denies any nausea, vomiting. Patient is a 47-year-old male with past medical history significant for polysubstance abuse, sciatica, hepatitis C, left hip septic joint status post washout that presented to the emergency room with left hip pain and abdominal discomfort. 1. Liver abscess. Status post liver abscess drainage and drain placement, cultures positive for E. Coli. Continue Zosyn. Blood cultures with no growth. Repeat CT of abdomen and pelvis showed there is no significant change in the size of the subcapsular abscess in the right lobe of the liver. Leaking around the pigtail catheter site in the right upper abdomen. Will discuss with IR tomorrow. 2. Dysphagia. resolving.Sore throat. Improved. Seen by speech and swallow who recommend advance bite size with thin liquids. Continue cepacol as needed. 3. Left hip chronic osteomyelitis, septic arthritis, left groin abscess. Continue Zosyn. Patient noncompliant with medications from initial diagnosis. Orthopedics and IR recommendation appreciated. There is no new collection that necessitates aspiration or drainage. 4. Diarrhea. resolved. Pending c-diff results. 5. Bilateral lower extremity venous dopplers. No DVT seen on venous doppler of bilateral lower extremities. 6. Thrombocytosis. Likely reactive. Downtrending. 7. Anemia. Chronic. H&H stable. hb is 8.8. toady. 8. Medication noncompliance. Patient was non compliant with medications and follow up at last discharge, patient counseled at length on importance of medication compliance. 9. Hepatitis C. Patient to follow up outpatient for treatment. 10. IVDA. Patient counseled at length on cessation. Upon discharge patient [place] [facility] [place] Case was discussed in detail with patient regarding current diagnosis and treatment plan. All questions answered. 04/03/18 14:43
[2018-04-04] MEDS: Morphine 2 mg/ml ISec IVP PRN ×4 (00:12→18:27)
--- NOTE | 2018-04-04 00:58 | PN ---
DATE: 04/03/2018 SUBJECTIVE: The patient is in bed, in no acute distress, nontoxic. PHYSICAL EXAMINATION: VITAL SIGNS: Temperature is 98, blood pressure is 123/80, respiratory rate 20. HEENT: Unremarkable. NECK: Supple. LUNGS: Have decreased breath sounds. HEART: Normal S1 and S2. ABDOMEN: Soft. LABORATORY DATA: Reveals a white count of 8, hemoglobin of 8. Microbiology is noted with E. Coli. Review of orders, Zosyn. ASSESSMENT AND PLAN: A 47-year-old male with liver abscess with Escherichia coli, on Zosyn. We will follow with you. Ty Will MD
[2018-04-04] MEDS: Piperacillin/Tazobact 3.375 gm 100 ML IVPB SCH ×3 (05:07→21:25)
[2018-04-04 07:20] LABS: BASO # 0.01 K/mm3 (0.0-2.0); BASO % 0.1 % (0.0-3.0); EOS # 0.1 (0.0-0.7); EOS % 1.4 % (1.5-5.0); GRAN # 4.17 (1.4-6.5); GRAN % 59.1 % (50.0-68.0); HEMOGLOBIN 8.5 g/dL (14.0-18.0); LYMPH # 1.6 (1.2-3.4); LYMPH % 23.1 % (22.0-35.0); MEAN CELL VOLUME 72.6 fl (80.0-105.0); MEAN CORPUSCULAR HEMOGLOBIN 22.6 pg (25.0-35.0); MEAN CORPUSCULAR HGB CONC 31.1 g/dl (31.0-37.0); MEAN PLATELET VOLUME 8.2 fl (7.0-11.0); MONO # 1.2 (0.1-0.6); MONO % 16.3 % (1.0-6.0); RBC 3.76 10^6/uL (3.5-6.1); RED CELL DISTRIBUTION WIDTH 19.3 % (11.5-14.5); WHITE BLOOD COUNT 7.1 10^3/uL (4.5-11.0)
[2018-04-04] MEDS: Pantoprazole 40 mg EC Tab PO SCH ×2 (08:35→08:38)
[2018-04-04 09:10] LABS: ALB/GLOB RATIO 0.6 (1.1-1.8); ALBUMIN 3.1 g/dL (3.0-4.8); ALT/SGPT 32 U/L (7-56); AST/SGOT 44 U/L (17-59); BLOOD UREA NITROGEN 9 mg/dL (7-21); CALCIUM 8.8 mg/dL (8.4-10.5); GFR NON-AFRICAN AMERICAN > 60
--- NOTE | 2018-04-04 16:44 | CP.PCM.PN ---
Subjective - Date & Time of Evaluation Date of Evaluation: 04/04/18 Time of Evaluation: 09:30 - Subjective Subjective: No change in abdominal pain, no fevers, not in distress. Planned for drainage of hepatic abscess today. Objective - Vital Signs/Intake and Output Vital Signs (last 24 hours): Temp Pulse Resp BP Pulse Ox 98.7 F 92 H 18 119/83 98 04/04/18 14:00 04/04/18 14:00 04/04/18 14:00 04/04/18 14:00 04/04/18 14:00 Intake and Output: 04/04/18 04/04/18 06:59 18:59 Intake Total 200 Output Total 500 Balance -300 - Medications Medications: Current Medications Acetaminophen (Tylenol 325mg Tab) 650 mg PO Q6H PRN PRN Reason: Fever >100.4 F Last Admin: 04/02/18 23:16 Dose: 650 mg Benzocaine/Menthol (Cepacol Sore Throat) 1 nelson MT Q2H PRN PRN Reason: Sore Throat Last Admin: 03/31/18 03:20 Dose: 1 nelson Heparin Sodium (Porcine) (Heparin) 5,000 units SC Q8 KIMBERLEE; Protocol Last Admin: 04/04/18 14:04 Dose: 5,000 units Piperacillin Sod/Tazobactam Sod (Zosyn 3.375 In Ns 100ml) 100 mls @ 25 mls/hr IVPB Q8 KIMBERLEE; Protocol Stop: 04/30/18 22:16 Last Admin: 04/04/18 14:05 Dose: 25 mls/hr Morphine Sulfate (Morphine) 1 mg IVP Q6H PRN PRN Reason: Pain, severe (8-10) Last Admin: 04/04/18 12:23 Dose: 1 mg Ondansetron HCl (Zofran Inj) 4 mg IVP Q6H PRN PRN Reason: Nausea/Vomiting Last Admin: 03/28/18 14:06 Dose: 4 mg Pantoprazole Sodium (Protonix Ec Tab) 40 mg PO 0600 KIMBERLEE Last Admin: 04/04/18 08:38 Dose: Not Given Tramadol HCl (Ultram) 50 mg PO TID PRN PRN Reason: Pain, moderate (4-7) Last Admin: 04/03/18 17:43 Dose: 50 mg - Labs Labs: 04/04/18 06:30 04/04/18 06:30 PT 14.2 SECONDS (9.4-12.5) H 03/28/18 06:30 INR 1.23 03/28/18 06:30 APTT 26.1 Seconds (25.1-36.5) 03/28/18 06:30 - Constitutional Appears: Chronically Ill - Head Exam Head Exam: NORMAL INSPECTION - Neck Exam Neck Exam: absent: Meningismus - Respiratory Exam Respiratory Exam: Decreased Breath Sounds - Cardiovascular Exam Cardiovascular Exam: +S1, +S2 - GI/Abdominal Exam GI & Abdominal Exam: Soft. absent: Tenderness Assessment and Plan - Assessment and Plan (Free Text) Plan: Assessment liver abscess and left groin abscess S/P CT-guided drainage, growing E. coli - repeat CT A/P is showing increased size of abscess and new collection adjacent to it history of sepsis due to Staph aureus and gram negative bacilli bacteremia with right hand and wrist skin and skin structure infection dyslipidemia hepatitis C infection history of IV drug use chronic alcohol abuse Plan continue Zosyn (day 8 from time of drainage of abscess); blood cx are negative; patient planned for repeat drainage of abscess by surgery especially with new collection noted Hepatitis C infection should be addressed as an outpatient
--- NOTE | 2018-04-04 19:51 | CP.PCM.PN ---
<Sean Tellez - Last Filed: 04/04/18 20:01> Subjective - Date & Time of Evaluation Date of Evaluation: 04/04/18 Time of Evaluation: 08:00 - Subjective Subjective: Pt seen and examined, no new complaints at this time. Denies chest pain, SOB, nausea or vomiting. Objective - Vital Signs/Intake and Output Vital Signs (last 24 hours): Temp Pulse Resp BP Pulse Ox 98.7 F 92 H 18 119/83 98 04/04/18 14:00 04/04/18 14:00 04/04/18 14:00 04/04/18 14:00 04/04/18 14:00 - Medications Medications: Current Medications Acetaminophen (Tylenol 325mg Tab) 650 mg PO Q6H PRN PRN Reason: Fever >100.4 F Last Admin: 04/02/18 23:16 Dose: 650 mg Benzocaine/Menthol (Cepacol Sore Throat) 1 nelson MT Q2H PRN PRN Reason: Sore Throat Last Admin: 03/31/18 03:20 Dose: 1 nelson Heparin Sodium (Porcine) (Heparin) 5,000 units SC Q8 KIMBERLEE; Protocol Last Admin: 04/04/18 14:04 Dose: 5,000 units Piperacillin Sod/Tazobactam Sod (Zosyn 3.375 In Ns 100ml) 100 mls @ 25 mls/hr IVPB Q8 KIMBERLEE; Protocol Stop: 04/30/18 22:16 Last Admin: 04/04/18 14:05 Dose: 25 mls/hr Morphine Sulfate (Morphine) 1 mg IVP Q6H PRN PRN Reason: Pain, severe (8-10) Last Admin: 04/04/18 18:27 Dose: 1 mg Ondansetron HCl (Zofran Inj) 4 mg IVP Q6H PRN PRN Reason: Nausea/Vomiting Last Admin: 03/28/18 14:06 Dose: 4 mg Pantoprazole Sodium (Protonix Ec Tab) 40 mg PO 0600 KIMBERLEE Last Admin: 04/04/18 08:38 Dose: Not Given Tramadol HCl (Ultram) 50 mg PO TID PRN PRN Reason: Pain, moderate (4-7) Last Admin: 04/03/18 17:43 Dose: 50 mg - Labs Labs: 04/04/18 06:30 04/04/18 06:30 PT 14.2 SECONDS (9.4-12.5) H 03/28/18 06:30 INR 1.23 03/28/18 06:30 APTT 26.1 Seconds (25.1-36.5) 03/28/18 06:30 - Constitutional Appears: No Acute Distress - Head Exam Head Exam: ATRAUMATIC, NORMOCEPHALIC - Eye Exam Eye Exam: EOMI - ENT Exam ENT Exam: Mucous Membranes Moist - Neck Exam Neck Exam: Full ROM - Respiratory Exam Respiratory Exam: Clear to Ausculation Bilateral, NORMAL BREATHING PATTERN. absent: Accessory Muscle Use, Respiratory Distress - Cardiovascular Exam Cardiovascular Exam: RRR, +S1, +S2. absent: Diastolic murmur, Murmur - GI/Abdominal Exam GI & Abdominal Exam: Soft, Normal Bowel Sounds. absent: Tenderness - Neurological Exam Neurological Exam: Alert, Awake, Oriented x3 - Psychiatric Exam Psychiatric exam: Normal Affect, Normal Mood - Skin Skin Exam: Dry, Intact, Warm Assessment and Plan - Assessment and Plan (Free Text) Assessment: Pt is a 47 yo male with a PMH of substance abuse, sciatica, Hepatitis C, Left hip septic joint, and liver abscess who presented to the ED complaining of pain in his left hip who was found to have a liver abscess. Plan: Liver abscess/ L Hip Abscess/ Left Groin Abscess - IR drained liver abscess on 03/28/18 - cultures growing E. coli - CTAP there is no significant change in the size of the subcapsular abscess in the right lobe of the liver - will request that IR reevaluates pt again - Morphine - Tramadol - Ortho consulted, Dr. Day - Gen surg consulted, Dr. Hsu - ID consulted, continue Zosyn Hypokalemia, resolved - K 4.5 - replete PRN - continue to monitor Thrombocytosis - Plts 616 - continue to monitor Diarrhea - c diff NEGATIVE Anemia - Hgb 8.5, at baseline - Continue to monitor Hx of Hep C - Recommend treatment as out pt - encourage cessation of IVDA Ppx - Protonix - SCDs, Heparin - encourage incentive spirometry Pt seen, examined, assessment and plan discussed with Dr Dirk Tellez PGY1, Internal Medicine Resident <Nito Cavazos - Last Filed: 04/06/18 15:45> Objective - Vital Signs/Intake and Output Vital Signs (last 24 hours): Temp Pulse Resp BP Pulse Ox 100.3 F H 90 20 124/86 97 04/06/18 06:36 04/06/18 06:00 04/06/18 06:00 04/06/18 06:00 04/06/18 06:00 Intake and Output: 04/06/18 04/06/18 06:59 18:59 Intake Total 420 600 Output Total 1700 1750 Balance -1280 -1150 - Medications Medications: Current Medications Acetaminophen (Tylenol 325mg Tab) 650 mg PO Q6H PRN PRN Reason: Fever >100.4 F Last Admin: 04/06/18 06:36 Dose: 650 mg Benzocaine/Menthol (Cepacol Sore Throat) 1 nelson MT Q2H PRN PRN Reason: Sore Throat Last Admin: 03/31/18 03:20 Dose: 1 nelsno Heparin Sodium (Porcine) (Heparin) 5,000 units SC Q8 KMIBERLEE; Protocol Last Admin: 04/06/18 05:19 Dose: 5,000 units Piperacillin Sod/Tazobactam Sod (Zosyn 3.375 In Ns 100ml) 100 mls @ 25 mls/hr IVPB Q8 KIMBERLEE; Protocol Stop: 04/30/18 22:16 Last Admin: 04/06/18 05:18 Dose: 25 mls/hr Morphine Sulfate (Morphine) 1 mg IVP Q6H PRN PRN Reason: Pain, severe (8-10) Last Admin: 04/06/18 11:47 Dose: 1 mg Ondansetron HCl (Zofran Inj) 4 mg IVP Q6H PRN PRN Reason: Nausea/Vomiting Last Admin: 03/28/18 14:06 Dose: 4 mg Pantoprazole Sodium (Protonix Ec Tab) 40 mg PO 0600 KIMBERLEE Last Admin: 04/06/18 06:03 Dose: Not Given Tramadol HCl (Ultram) 50 mg PO TID PRN PRN Reason: Pain, moderate (4-7) Last Admin: 04/03/18 17:43 Dose: 50 mg - Labs Labs: 04/05/18 06:30 04/05/18 06:30 PT 14.2 SECONDS (9.4-12.5) H 12/31/18 06:30 INR 1.23 03/28/18 06:30 APTT 26.1 Seconds (25.1-36.5) 03/28/18 06:30 Attending/Attestation - Attestation I have personally seen and examined this patient.: Yes I have fully participated in the care of the patient.: Yes I have reviewed all pertinent clinical information, including history, physical exam and plan: Yes Notes (Text): 47 y/o M with PMH of Hep C, IVDA, left hip septic joint, found to have subcaspsular abscess in the right lobe of the liver. Pt got a drain placed by IR on 03/28, but repeat CT shows to significant change in the size of the abscess. And purulent drainage noticed from the insertion site. Pt needs the drain repositioned by IR. irina/virgen Fong
[2018-04-05] MEDS: Morphine 2 mg/ml ISec IVP PRN ×4 (00:18→18:23)
[2018-04-05] MEDS: Pantoprazole 40 mg EC Tab PO SCH (05:17)
[2018-04-05] MEDS: Piperacillin/Tazobact 3.375 gm 100 ML IVPB SCH ×3 (05:17→21:43)
[2018-04-05 07:05] LABS: BASO # 0.01 K/mm3 (0.0-2.0); BASO % 0.1 % (0.0-3.0); EOS # 0.1 (0.0-0.7); GRAN # 6.12 (1.4-6.5); GRAN % 67.3 % (50.0-68.0); HEMOGLOBIN 9.1 g/dL (14.0-18.0); LYMPH # 1.5 (1.2-3.4); LYMPH % 16.1 % (22.0-35.0); MEAN CELL VOLUME 72.3 fl (80.0-105.0); MEAN CORPUSCULAR HEMOGLOBIN 22.8 pg (25.0-35.0); MEAN CORPUSCULAR HGB CONC 31.5 g/dl (31.0-37.0); MEAN PLATELET VOLUME 8.1 fl (7.0-11.0); MONO # 1.4 (0.1-0.6); MONO % 15.5 % (1.0-6.0); RED CELL DISTRIBUTION WIDTH 19.2 % (11.5-14.5); WHITE BLOOD COUNT 9.1 10^3/uL (4.5-11.0)
[2018-04-05 07:24] LABS: ALB/GLOB RATIO 0.6 (1.1-1.8); ALBUMIN 3.2 g/dL (3.0-4.8); ALT/SGPT 37 U/L (7-56); AST/SGOT 63 U/L (17-59); BLOOD UREA NITROGEN 10 mg/dL (7-21); CALCIUM 8.9 mg/dL (8.4-10.5); GFR NON-AFRICAN AMERICAN > 60
--- NOTE | 2018-04-05 14:12 | CP.PCM.PN ---
<Sean Tellez - Last Filed: 04/05/18 14:55> Subjective - Date & Time of Evaluation Date of Evaluation: 04/05/18 Time of Evaluation: 07:00 - Subjective Subjective: Pt seen and examined. Pt reports leaking around the drain for his liver abscess. Reports fever overnight. Denies chest pain, SOB. Objective - Vital Signs/Intake and Output Vital Signs (last 24 hours): Temp Pulse Resp BP Pulse Ox 99.7 F H 85 20 123/85 98 04/05/18 06:00 04/05/18 06:00 04/05/18 06:00 04/05/18 06:00 04/05/18 06:00 Intake and Output: 04/05/18 04/05/18 06:59 18:59 Intake Total 600 Output Total 610 Balance -10 - Medications Medications: Current Medications Acetaminophen (Tylenol 325mg Tab) 650 mg PO Q6H PRN PRN Reason: Fever >100.4 F Last Admin: 04/04/18 20:54 Dose: 650 mg Benzocaine/Menthol (Cepacol Sore Throat) 1 nelson MT Q2H PRN PRN Reason: Sore Throat Last Admin: 03/31/18 03:20 Dose: 1 nelson Heparin Sodium (Porcine) (Heparin) 5,000 units SC Q8 KIMBERLEE; Protocol Last Admin: 04/05/18 13:57 Dose: 5,000 units Piperacillin Sod/Tazobactam Sod (Zosyn 3.375 In Ns 100ml) 100 mls @ 25 mls/hr IVPB Q8 KIMBERLEE; Protocol Stop: 04/30/18 22:16 Last Admin: 04/05/18 13:58 Dose: 25 mls/hr Morphine Sulfate (Morphine) 1 mg IVP Q6H PRN PRN Reason: Pain, severe (8-10) Last Admin: 04/05/18 12:07 Dose: 1 mg Ondansetron HCl (Zofran Inj) 4 mg IVP Q6H PRN PRN Reason: Nausea/Vomiting Last Admin: 03/28/18 14:06 Dose: 4 mg Pantoprazole Sodium (Protonix Ec Tab) 40 mg PO 0600 KIMBERLEE Last Admin: 04/05/18 05:17 Dose: 40 mg Tramadol HCl (Ultram) 50 mg PO TID PRN PRN Reason: Pain, moderate (4-7) Last Admin: 04/03/18 17:43 Dose: 50 mg - Labs Labs: 04/05/18 06:30 04/05/18 06:30 PT 14.2 SECONDS (9.4-12.5) H 03/28/18 06:30 INR 1.23 03/28/18 06:30 APTT 26.1 Seconds (25.1-36.5) 03/28/18 06:30 - Constitutional Appears: No Acute Distress - Head Exam Head Exam: ATRAUMATIC, NORMOCEPHALIC - Eye Exam Eye Exam: EOMI - ENT Exam ENT Exam: Mucous Membranes Moist - Neck Exam Neck Exam: Full ROM - Respiratory Exam Respiratory Exam: Clear to Ausculation Bilateral, NORMAL BREATHING PATTERN. absent: Accessory Muscle Use, Respiratory Distress - Cardiovascular Exam Cardiovascular Exam: RRR, +S1, +S2. absent: Diastolic murmur, Murmur - GI/Abdominal Exam GI & Abdominal Exam: Soft, Tenderness, Normal Bowel Sounds Additional comments: drain in place, with leakage - Extremities Exam Extremities Exam: Full ROM - Neurological Exam Neurological Exam: Alert, Awake, Oriented x3 - Psychiatric Exam Psychiatric exam: Normal Affect, Normal Mood - Skin Skin Exam: Dry, Intact, Warm Assessment and Plan - Assessment and Plan (Free Text) Assessment: Pt is a 47 yo male with a PMH of substance abuse, sciatica, Hepatitis C, Left hip septic joint, and liver abscess who presented to the ED complaining of pain in his left hip who was found to have a liver abscess. Plan: Liver abscess/ L Hip Abscess/ Left Groin Abscess - IR drained liver abscess on 03/28/18, cultures growing E. coli - CTAP there is no significant change in the size of the subcapsular abscess in the right lobe of the liver - IR reevaluates pt again today, will follow up recommendations - Morphine, Tramadol - only order lab work every other day going forward - Ortho consulted, Dr. Day - Gen surg consulted, Dr. Hsu - ID consulted, continue Zosyn Diarrhea - c diff NEGATIVE Thrombocytosis - Plts 612 - continue to monitor Hypokalemia, resolved - K 4.7 - replete PRN Anemia - Hgb 9.1, at baseline, continue to monitor Hx of Hep C - Recommend treatment as out pt - encourage cessation of IVDA Ppx - Protonix - SCDs, Heparin - incentive spirometry Pt seen, examined, assessment and plan discussed with Dr Dirk Tellez PGY1, Internal Medicine Resident <Nito Cavazos - Last Filed: 04/06/18 15:49> Objective - Vital Signs/Intake and Output Vital Signs (last 24 hours): Temp Pulse Resp BP Pulse Ox 100.3 F H 90 20 124/86 97 04/06/18 06:36 04/06/18 06:00 04/06/18 06:00 04/06/18 06:00 04/06/18 06:00 Intake and Output: 04/06/18 04/06/18 06:59 18:59 Intake Total 420 600 Output Total 1700 1750 Balance -1280 -1150 - Medications Medications: Current Medications Acetaminophen (Tylenol 325mg Tab) 650 mg PO Q6H PRN PRN Reason: Fever >100.4 F Last Admin: 04/06/18 06:36 Dose: 650 mg Benzocaine/Menthol (Cepacol Sore Throat) 1 nelson MT Q2H PRN PRN Reason: Sore Throat Last Admin: 03/31/18 03:20 Dose: 1 nelson Heparin Sodium (Porcine) (Heparin) 5,000 units SC Q8 KIMBERLEE; Protocol Last Admin: 04/06/18 05:19 Dose: 5,000 units Piperacillin Sod/Tazobactam Sod (Zosyn 3.375 In Ns 100ml) 100 mls @ 25 mls/hr IVPB Q8 KIMBERLEE; Protocol Stop: 04/30/18 22:16 Last Admin: 04/06/18 05:18 Dose: 25 mls/hr Morphine Sulfate (Morphine) 1 mg IVP Q6H PRN PRN Reason: Pain, severe (8-10) Last Admin: 04/06/18 11:47 Dose: 1 mg Ondansetron HCl (Zofran Inj) 4 mg IVP Q6H PRN PRN Reason: Nausea/Vomiting Last Admin: 03/28/18 14:06 Dose: 4 mg Pantoprazole Sodium (Protonix Ec Tab) 40 mg PO 0600 KIMBERLEE Last Admin: 04/06/18 06:03 Dose: Not Given Tramadol HCl (Ultram) 50 mg PO TID PRN PRN Reason: Pain, moderate (4-7) Last Admin: 04/03/18 17:43 Dose: 50 mg - Labs Labs: 04/05/18 06:30 04/05/18 06:30 PT 14.2 SECONDS (9.4-12.5) H 03/28/18 06:30 INR 1.23 03/28/18 06:30 APTT 26.1 Seconds (25.1-36.5) 03/28/18 06:30 Attending/Attestation - Attestation I have personally seen and examined this patient.: Yes I have fully participated in the care of the patient.: Yes I have reviewed all pertinent clinical information, including history, physical exam and plan: Yes Notes (Text): 47 y/o M with PMH of Hep C, IVDA, left hip septic joint, found to have subcaspsular abscess in the right lobe of the liver. Pt got a drain placed by IR on 03/28, but repeat CT showed no significant change in the size of the abscess. And purulent drainage noticed from the insertion site. Pt needs the drain repositioned by IR. Pt now spiking low grade fevers, however does not appear toxic. IR to adjust drain today. c/w Zosyn
--- NOTE | 2018-04-05 19:59 | PN ---
DATE: 04/05/2018 SUBJECTIVE: The patient is in bed in no acute distress. PHYSICAL EXAMINATION: VITAL SIGNS: Temperature is 98, blood pressure is 120/80, respiratory 20. HEENT: Unremarkable. NECK: Supple. HEART Normal S1, S2. LUNGS: Have decreased breath sounds. ABDOMEN: Soft. LABORATORY DATA: Laboratory examination is noted. Toxicology is reviewed. Serology is reviewed. HIV is negative. ASSESSMENT AND PLAN: This is a 47-year-old male with liver abscess with an Escherichia coli, on Zosyn. Repeat imaging from the 4th is noted. Review of orders reveals the Zosyn is active. The patient's white count is 9.1. CT of the abdomen, no significant change in the size of the subcapsular abscess, pigtail drainage catheter is in place as the fluid is largest portion 14. We will follow with you. Continue with Zosyn. Ty Will MD
[2018-04-06] MEDS: Morphine 2 mg/ml ISec IVP PRN ×5 (00:11→23:09)
[2018-04-06] MEDS: Piperacillin/Tazobact 3.375 gm 100 ML IVPB SCH ×3 (05:18→21:35)
[2018-04-06] MEDS: Pantoprazole 40 mg EC Tab PO SCH ×2 (05:19→06:03)
--- NOTE | 2018-04-06 12:49 | CP.PCM.PN ---
<Sean Tellez - Last Filed: 04/06/18 13:05> Subjective - Date & Time of Evaluation Date of Evaluation: 04/06/18 Time of Evaluation: 07:00 - Subjective Subjective: Pt seen and examined. Pt reports leakage from his drain site. Pt denies chest pain, SOB. Objective - Vital Signs/Intake and Output Vital Signs (last 24 hours): Temp Pulse Resp BP Pulse Ox 100.3 F H 90 20 124/86 97 04/06/18 06:36 04/06/18 06:00 04/06/18 06:00 04/06/18 06:00 04/06/18 06:00 Intake and Output: 04/06/18 04/06/18 06:59 18:59 Intake Total 420 600 Output Total 1700 1750 Balance -1280 -1150 - Medications Medications: Current Medications Acetaminophen (Tylenol 325mg Tab) 650 mg PO Q6H PRN PRN Reason: Fever >100.4 F Last Admin: 04/06/18 06:36 Dose: 650 mg Benzocaine/Menthol (Cepacol Sore Throat) 1 nelson MT Q2H PRN PRN Reason: Sore Throat Last Admin: 03/31/18 03:20 Dose: 1 nelson Heparin Sodium (Porcine) (Heparin) 5,000 units SC Q8 KIMBERLEE; Protocol Last Admin: 04/06/18 05:19 Dose: 5,000 units Piperacillin Sod/Tazobactam Sod (Zosyn 3.375 In Ns 100ml) 100 mls @ 25 mls/hr IVPB Q8 KIMBERLEE; Protocol Stop: 04/30/18 22:16 Last Admin: 04/06/18 05:18 Dose: 25 mls/hr Morphine Sulfate (Morphine) 1 mg IVP Q6H PRN PRN Reason: Pain, severe (8-10) Last Admin: 04/06/18 11:47 Dose: 1 mg Ondansetron HCl (Zofran Inj) 4 mg IVP Q6H PRN PRN Reason: Nausea/Vomiting Last Admin: 03/28/18 14:06 Dose: 4 mg Pantoprazole Sodium (Protonix Ec Tab) 40 mg PO 0600 KIMBERLEE Last Admin: 04/06/18 06:03 Dose: Not Given Tramadol HCl (Ultram) 50 mg PO TID PRN PRN Reason: Pain, moderate (4-7) Last Admin: 04/03/18 17:43 Dose: 50 mg - Labs Labs: 04/05/18 06:30 04/05/18 06:30 PT 14.2 SECONDS (9.4-12.5) H 03/28/18 06:30 INR 1.23 03/28/18 06:30 APTT 26.1 Seconds (25.1-36.5) 03/28/18 06:30 - Constitutional Appears: No Acute Distress - Head Exam Head Exam: ATRAUMATIC, NORMOCEPHALIC - ENT Exam ENT Exam: Mucous Membranes Moist - Neck Exam Neck Exam: Full ROM - Respiratory Exam Respiratory Exam: Clear to Ausculation Bilateral, NORMAL BREATHING PATTERN. absent: Accessory Muscle Use, Respiratory Distress - Cardiovascular Exam Cardiovascular Exam: RRR, +S1, +S2. absent: Diastolic murmur, Murmur - GI/Abdominal Exam GI & Abdominal Exam: Soft, Normal Bowel Sounds Additional comments: drain in place with leakage - Extremities Exam Extremities Exam: Full ROM. absent: Pedal Edema - Neurological Exam Neurological Exam: Alert, Awake, Oriented x3 - Psychiatric Exam Psychiatric exam: Normal Affect, Normal Mood - Skin Skin Exam: Dry, Intact, Warm Assessment and Plan - Assessment and Plan (Free Text) Assessment: Pt is a 47 yo male with a PMH of substance abuse, sciatica, Hepatitis C, Left hip septic joint, and liver abscess who presented to the ED complaining of pain in his left hip who was found to have a liver abscess. Plan: Liver abscess/ L Hip Abscess/ Left Groin Abscess - IR drained liver abscess on 03/28/18, cultures growing E. coli - IR reevaluation rescheduled for to try to fix leaking drain - CTAP there is no significant change in the size of the subcapsular abscess in the right lobe of the liver - Morphine - Tramadol - only order lab work every other day going forward - General surgery consulted, Dr. Hsu - Ortho consulted, Dr. Day - ID consulted, continue Zosyn Hypokalemia, resolved - K 4.7, resolved - replete PRN Thrombocytosis - Plts 612 - continue to monitor Diarrhea - c diff NEGATIVE Hx of Hep C - Recommend treatment as out pt - encourage cessation of IVDA Ppx - Protonix - SCDs, Heparin - incentive spirometry Pt seen, examined, assessment and plan discussed with Dr Dirk Tellez PGY1, Internal Medicine Resident <Nito Cavazos - Last Filed: 04/06/18 15:48> Objective - Vital Signs/Intake and Output Vital Signs (last 24 hours): Temp Pulse Resp BP Pulse Ox 100.3 F H 90 20 124/86 97 04/06/18 06:36 04/06/18 06:00 04/06/18 06:00 04/06/18 06:00 04/06/18 06:00 Intake and Output: 04/06/18 04/06/18 06:59 18:59 Intake Total 420 600 Output Total 1700 1750 Balance -1280 -1150 - Medications Medications: Current Medications Acetaminophen (Tylenol 325mg Tab) 650 mg PO Q6H PRN PRN Reason: Fever >100.4 F Last Admin: 04/06/18 06:36 Dose: 650 mg Benzocaine/Menthol (Cepacol Sore Throat) 1 nelson MT Q2H PRN PRN Reason: Sore Throat Last Admin: 03/31/18 03:20 Dose: 1 nelson Heparin Sodium (Porcine) (Heparin) 5,000 units SC Q8 KIMBERLEE; Protocol Last Admin: 04/06/18 05:19 Dose: 5,000 units Piperacillin Sod/Tazobactam Sod (Zosyn 3.375 In Ns 100ml) 100 mls @ 25 mls/hr IVPB Q8 KIMBERLEE; Protocol Stop: 04/30/18 22:16 Last Admin: 04/06/18 05:18 Dose: 25 mls/hr Morphine Sulfate (Morphine) 1 mg IVP Q6H PRN PRN Reason: Pain, severe (8-10) Last Admin: 04/06/18 11:47 Dose: 1 mg Ondansetron HCl (Zofran Inj) 4 mg IVP Q6H PRN PRN Reason: Nausea/Vomiting Last Admin: 03/28/18 14:06 Dose: 4 mg Pantoprazole Sodium (Protonix Ec Tab) 40 mg PO 0600 KIMBERLEE Last Admin: 04/06/18 06:03 Dose: Not Given Tramadol HCl (Ultram) 50 mg PO TID PRN PRN Reason: Pain, moderate (4-7) Last Admin: 01/06/19 17:43 Dose: 50 mg - Labs Labs: 04/05/18 06:30 04/05/18 06:30 PT 14.2 SECONDS (9.4-12.5) H 03/28/18 06:30 INR 1.23 03/28/18 06:30 APTT 26.1 Seconds (25.1-36.5) 03/28/18 06:30 Attending/Attestation - Attestation I have personally seen and examined this patient.: Yes I have fully participated in the care of the patient.: Yes I have reviewed all pertinent clinical information, including history, physical exam and plan: Yes Notes (Text): 47 y/o M with PMH of Hep C, IVDA, left hip septic joint, found to have subcaspsular abscess in the right lobe of the liver. Pt got a drain placed by IR on 03/28, but repeat CT showed no significant change in the size of the abscess. And purulent drainage noticed from the insertion site. Pt needs the drain repositioned by IR. Pt now spiking low grade fevers, h owever does not appear toxic. Discussed with IR again today, they were unable to fit him in the schedule yesterday. Plan is for tomorrow. c/w Hetal
--- NOTE | 2018-04-06 15:13 | CP.PCM.PN ---
Subjective - Date & Time of Evaluation Date of Evaluation: 04/06/18 Time of Evaluation: 15:10 - Subjective Subjective: ID progress note PGY-[address] Will Tmax 100.3 today. Pain on RUQ, chronic and L groin, chronic. Denies other acute complaine per 12 point ros Objective - Vital Signs/Intake and Output Vital Signs (last 24 hours): Temp Pulse Resp BP Pulse Ox 100.3 F H 90 20 124/86 97 04/06/18 06:36 04/06/18 06:00 04/06/18 06:00 04/06/18 06:00 04/06/18 06:00 Intake and Output: 04/06/18 04/06/18 06:59 18:59 Intake Total 420 600 Output Total 1700 1750 Balance -1280 -1150 - Medications Medications: Current Medications Acetaminophen (Tylenol 325mg Tab) 650 mg PO Q6H PRN PRN Reason: Fever >100.4 F Last Admin: 04/06/18 06:36 Dose: 650 mg Benzocaine/Menthol (Cepacol Sore Throat) 1 nelson MT Q2H PRN PRN Reason: Sore Throat Last Admin: 03/31/18 03:20 Dose: 1 nelson Heparin Sodium (Porcine) (Heparin) 5,000 units SC Q8 KIMBERLEE; Protocol Last Admin: 04/06/18 05:19 Dose: 5,000 units Piperacillin Sod/Tazobactam Sod (Zosyn 3.375 In Ns 100ml) 100 mls @ 25 mls/hr IVPB Q8 KIMBERLEE; Protocol Stop: 04/30/18 22:16 Last Admin: 04/06/18 05:18 Dose: 25 mls/hr Morphine Sulfate (Morphine) 1 mg IVP Q6H PRN PRN Reason: Pain, severe (8-10) Last Admin: 04/06/18 11:47 Dose: 1 mg Ondansetron HCl (Zofran Inj) 4 mg IVP Q6H PRN PRN Reason: Nausea/Vomiting Last Admin: 03/28/18 14:06 Dose: 4 mg Pantoprazole Sodium (Protonix Ec Tab) 40 mg PO 0600 KIMBERLEE Last Admin: 04/06/18 06:03 Dose: Not Given Tramadol HCl (Ultram) 50 mg PO TID PRN PRN Reason: Pain, moderate (4-7) Last Admin: 04/03/18 17:43 Dose: 50 mg - Labs Labs: 04/05/18 06:30 04/05/18 06:30 PT 14.2 SECONDS (9.4-12.5) H 03/28/18 06:30 INR 1.23 03/28/18 06:30 APTT 26.1 Seconds (25.1-36.5) 03/28/18 06:30 - Constitutional Appears: No Acute Distress - Head Exam Head Exam: ATRAUMATIC, NORMAL INSPECTION, NORMOCEPHALIC - Eye Exam Eye Exam: EOMI, Normal appearance, PERRL. absent: Scleral icterus Pupil Exam: NORMAL ACCOMODATION - ENT Exam ENT Exam: Mucous Membranes Moist - Neck Exam Additional comments: supple - Respiratory Exam Respiratory Exam: Clear to Ausculation Bilateral. absent: Rales, Rhonchi, Wheezes - Cardiovascular Exam Cardiovascular Exam: REGULAR RHYTHM, +S1, +S2. absent: Murmur - GI/Abdominal Exam GI & Abdominal Exam: Soft. absent: Guarding, Rigid, Tenderness Additional comments: R dressing d/c/i, cloudy yellow liquid in drainage bag, no erythema - Extremities Exam Extremities Exam: absent: Calf Tenderness, Pedal Edema - Back Exam Back Exam: absent: CVA tenderness (L), CVA tenderness (R) - Neurological Exam Neurological Exam: Alert, Awake, Oriented x3 - Psychiatric Exam Psychiatric exam: Normal Affect, Normal Mood - Skin Skin Exam: Dry, Warm Assessment and Plan - Assessment and Plan (Free Text) Plan: Mr Ely, 47M, with PMH of substance abuse, sciatica, Hepatitis C, Left hip septic joint, and liver abscess (2 loculations) and L groin abscess admitted for left hip pain and liver abscess. A Liver abscess s/p drainage (03/28/18), E coli L Hip Abscess/ Left Groin Abscess s/p I&D (Jan 2018), MRSA, Questionable completion of IV dalvance weekly x 2 week and cipro 500 PO BID x 6 weeks New fever is likely from persistence abscess from malfunctioning pigtail drain Hx MRSA and klebsiella bacteremia (11/17/17) Active smoker, IVDU, polysubstance abuse Hx Hep C P: - IR reevaluation rescheduled for to try to fix leaking drain - zosyn (day 9) Lab/imaging: - HIV negative - Absess (03/28): e-coli - MRSA: neg - BCx: neg x 5d - CTAP (04/01) no significant change in the size of the subcapsular abscess in the right lobe of the liver s/r/d/w Dr Will
[2018-04-06] MEDS ORDERED: Lidocaine 2% Inj (20ml) ONE (15:39)
[2018-04-06] MEDS ORDERED: Iodixanol 320 MG/ML 100 ML BOTTLE IV ONE (15:40)
--- NOTE | 2018-04-06 15:47 | PN ---
DATE: 04/06/2018 SUBJECTIVE: The patient seen earlier this morning. The patient with low grade fevers. OBJECTIVE: VITAL SIGNS: Temperature is 100.3, blood pressure is 120/80, respiratory of 18, heart rate of 180. HEENT: Unremarkable. NECK: Supple. LUNGS: Have decreased breath sounds. HEART: Normal S1, S2. ABDOMEN: Soft, nontender. LABORATORY EXAMINATION: Reveals a white count is 9.1, hemoglobin of 9. Chemistries are noted and toxicology is reviewed and serology is noted and review of orders reveals the patient to be on Zosyn. ASSESSMENT AND PLAN: This is a 47-year-old male with liver abscess Escherichia coli and Zosyn and now with low grade fevers and tachycardia. The patient's medications include heparin subcu every 8 hours and morphine. We will continue present course. Ty Will MD
[2018-04-06] MEDS ORDERED: Midazolam 2 MG/2 ML VIAL ONE (16:10)
[2018-04-06] MEDS ORDERED: Sodium Chloride 0.45% 1,000 ML IV SCH (16:45)
--- NOTE | 2018-04-06 17:18 | VASCULAR ---
Date of service: 04/06/2018 PROCEDURE: Percutaneous perihepatic drain change HISTORY: Large perihepatic abscess. In adequately drained. Recent septic left hip status post drainage. Reposition and upsized drain COMPARISON: TECHNIQUE: The relative risks and indications of the procedure were explained the patient consent obtained. Patient placed supine on the arteriogram table in a perihepatic drain prepped and draped usual sterile fashion. Conscious sedation monitoring were provided throughout the procedure by a nurse. 1 percent xylocaine was used to anesthetize the skin soft tissues around the drain. A 0.035 glidewire was coiled within the perihepatic cavity. No obvious septations were appreciated. The old drain was removed. A new larger 14 Vietnamese pigtail drain was placed. Aspiration was performed. 1000 cc of thick purulent green-white fluid was aspirated. A microbiology specimen was sent. The cavity was lavaged with saline. The drain was secured and flushed. The patient tolerated the procedure well. FINDINGS: IMPRESSION: Repositioning and placement of a 14 Vietnamese perihepatic pigtail drain. Over 1000 cc of purulent fluid was drained. A CT scan was ordered for tomorrow to make sure there are no undrained pockets remaining. The drainage catheter should be flushed twice daily. It should remain for an extended period of time. Follow-up CT scans are highly recommended. A microbiology specimen was sent.
[2018-04-07] MEDS ORDERED: Barium Sulfate Susp 2.1% w/v, 2.0% w/w 450 mL Bottle PO ONE (00:08)
[2018-04-07] MEDS: Morphine 2 mg/ml ISec IVP PRN ×3 (05:00→20:30)
[2018-04-07] MEDS: Piperacillin/Tazobact 3.375 gm 100 ML IVPB SCH ×3 (05:01→21:58)
[2018-04-07] MEDS: Pantoprazole 40 mg EC Tab PO SCH (05:07)
[2018-04-07 07:25] LABS: BASO # 0.03 K/mm3 (0.0-2.0); BASO % 0.5 % (0.0-3.0); EOS # 0.1 (0.0-0.7); EOS % 2.2 % (1.5-5.0); GRAN # 2.93 (1.4-6.5); GRAN % 46.1 % (50.0-68.0); HEMOGLOBIN 7.8 g/dL (14.0-18.0); LYMPH # 2.2 (1.2-3.4); LYMPH % 34.7 % (22.0-35.0); MEAN CELL VOLUME 72.6 fl (80.0-105.0); MEAN CORPUSCULAR HEMOGLOBIN 22.3 pg (25.0-35.0); MEAN CORPUSCULAR HGB CONC 30.7 g/dl (31.0-37.0); MEAN PLATELET VOLUME 8.4 fl (7.0-11.0); MONO # 1.1 (0.1-0.6); MONO % 16.5 % (1.0-6.0); RBC 3.5 10^6/uL (3.5-6.1); RED CELL DISTRIBUTION WIDTH 19.2 % (11.5-14.5); WHITE BLOOD COUNT 6.4 10^3/uL (4.5-11.0)
[2018-04-07 07:44] LABS: ALB/GLOB RATIO 0.6 (1.1-1.8); ALBUMIN 3.1 g/dL (3.0-4.8); ALT/SGPT 40 U/L (7-56); AST/SGOT 49 U/L (17-59); BLOOD UREA NITROGEN 9 mg/dL (7-21); CALCIUM 8.8 mg/dL (8.4-10.5); GFR NON-AFRICAN AMERICAN > 60
[2018-04-07] MEDS: oxyCODONE 15 mg Immediate Release Tab PO SCH ×2 (12:33→21:58)
--- NOTE | 2018-04-07 12:38 | CT ---
Date of service: 04/07/2018 PROCEDURE: CT Abdomen and Pelvis with contrast HISTORY: fu perihepatic abscess. New drain COMPARISON: None. TECHNIQUE: Helical CT of the abdomen and pelvis was performed without oral or intravenous contrast as per referring physician request. Coronal and sagittal reformats were generatedContrast dose: None Radiation dose: Total exam DLP = 412.94 mGy-cm. This CT exam was performed using one or more of the following dose reduction techniques: Automated exposure control, adjustment of the mA and/or kV according to patient size, and/or use of iterative reconstruction technique. FINDINGS: LOWER THORAX: Mild right pleural effusions identified with right basilar subsegmental atelectasis or infiltrate present or combination of both. Linear atelectasis or fibrosis seen at the right middle and lower lobes once again. LIVER: Prior right hepatic abscess cavity is nearly completely decompressed with trace gas in the lumen. Is unclear whether there is any residual fluid within the lumen. None is clearly visible at this time. The loculated component seen infra anteriorly is nearly completely decompressed but measures 5.7 x 1.2 cm greatest dimensions with limited residual noted there. A small potentially loculated collection is seen inferior to the right lobe measuring 4.9 by 4.4 cm. GALLBLADDER AND BILE DUCTS: Unremarkable. PANCREAS: Unremarkable. No gross lesion or ductal dilatation. SPLEEN: Unremarkable. ADRENALS: Unremarkable. No mass. KIDNEYS AND URETERS: Unremarkable. No hydronephrosis. No solid mass. VASCULATURE: Unremarkable. No aortic aneurysm. No aortic atherosclerotic calcification or mural plaque present. BOWEL: Unremarkable. No obstruction. No gross mural thickening. APPENDIX: Not clearly identified. PERITONEUM: Both the perineal, retroperitoneal and extra abdominal fat appears injected suggesting some element of anasarca. Clinically correlate further. Limited fat throughout the exam suggests cachexia once again as well. No definite free intra peritoneal gas collection evident. LYMPH NODES: Unremarkable. No enlarged lymph nodes. BLADDER: Unremarkable. REPRODUCTIVE: Unremarkable. BONES: No acute fracture. OTHER FINDINGS: None. IMPRESSION: Near complete resolution of fluid within the abscess cavity at the right lobe liver with small loculated separate components diminished in size anterior to the medial left lobe liver and inferior to the right lobe liver as discussed above. The right-sided loculated collection is less decompressed than the anterior component as discussed above. Drainage catheter remains in good apparent position in the main segment of the abscess collection. Cachexia and anasarca.
--- NOTE | 2018-04-07 13:28 | CP.PCM.PN ---
<Sean Tellez - Last Filed: 04/07/18 13:40> Subjective - Date & Time of Evaluation Date of Evaluation: 04/07/18 Time of Evaluation: 06:00 - Subjective Subjective: Pt seen and examined. Pt states his drain was fixed by IR and is no longer leaking. Pt states his is in pain from the abscesses Objective - Vital Signs/Intake and Output Vital Signs (last 24 hours): Temp Pulse Resp BP Pulse Ox 98 F 90 20 117/77 99 04/07/18 06:00 04/07/18 06:00 04/07/18 06:00 04/07/18 06:00 04/07/18 06:00 Intake and Output: 04/07/18 04/07/18 06:59 18:59 Intake Total 600 Output Total 500 Balance 100 - Medications Medications: Current Medications Acetaminophen (Tylenol 325mg Tab) 650 mg PO Q6H PRN PRN Reason: Fever >100.4 F Last Admin: 04/06/18 06:36 Dose: 650 mg Benzocaine/Menthol (Cepacol Sore Throat) 1 nelson MT Q2H PRN PRN Reason: Sore Throat Last Admin: 03/31/18 03:20 Dose: 1 nelson Heparin Sodium (Porcine) (Heparin) 5,000 units SC Q8 KIMBERLEE; Protocol Last Admin: 04/07/18 05:07 Dose: Not Given Piperacillin Sod/Tazobactam Sod (Zosyn 3.375 In Ns 100ml) 100 mls @ 25 mls/hr IVPB Q8 KIMBERLEE; Protocol Stop: 04/30/18 22:16 Last Admin: 04/07/18 05:01 Dose: 25 mls/hr Morphine Sulfate (Morphine) 1 mg IVP Q6H PRN PRN Reason: Pain, severe (8-10) Last Admin: 04/07/18 11:32 Dose: 1 mg Ondansetron HCl (Zofran Inj) 4 mg IVP Q6H PRN PRN Reason: Nausea/Vomiting Last Admin: 03/28/18 14:06 Dose: 4 mg Oxycodone HCl (Oxycodone Immediate Release Tab) 15 mg PO Q12 KIMBERLEE Last Admin: 04/07/18 12:33 Dose: 15 mg Pantoprazole Sodium (Protonix Ec Tab) 40 mg PO 0600 KIMBERLEE Last Admin: 04/07/18 05:07 Dose: Not Given - Labs Labs: 04/07/18 06:45 04/07/18 06:45 PT 14.2 SECONDS (9.4-12.5) H 03/28/18 06:30 INR 1.23 03/28/18 06:30 APTT 26.1 Seconds (25.1-36.5) 03/28/18 06:30 - Head Exam Head Exam: ATRAUMATIC, NORMOCEPHALIC - Eye Exam Eye Exam: EOMI - ENT Exam ENT Exam: Mucous Membranes Moist - Neck Exam Neck Exam: Full ROM - Respiratory Exam Respiratory Exam: NORMAL BREATHING PATTERN. absent: Accessory Muscle Use, Clear to Ausculation Bilateral - Cardiovascular Exam Cardiovascular Exam: RRR, +S1, +S2. absent: Diastolic murmur, Murmur - GI/Abdominal Exam GI & Abdominal Exam: Soft, Tenderness, Normal Bowel Sounds Additional comments: drain in place, bandaged, no leaking seen - Extremities Exam Extremities Exam: Full ROM. absent: Pedal Edema - Neurological Exam Neurological Exam: Alert, Awake, Oriented x3 - Psychiatric Exam Psychiatric exam: Normal Affect, Normal Mood - Skin Skin Exam: Dry, Intact, Warm Assessment and Plan - Assessment and Plan (Free Text) Assessment: Pt is a 47 yo male with a PMH of substance abuse, sciatica, Hepatitis C, Left hip septic joint, and liver abscess who presented to the ED complaining of pain in his left hip who was found to have a liver abscess. Plan: Liver abscess/ L Hip Abscess/ Left Groin Abscess - IR drained liver abscess on 03/28/18, cultures growing E. coli - IR reevaluated drain, drain is working well, purulent drainage - CTAP there is no significant change in the size of the subcapsular abscess in the right lobe of the liver - Oxycodone 15 xr PO BID - Morphine 1mg IVP Q6 PRN for breakthrough pain - only order lab work every other day going forward - PT eval and treat, follow up - General surgery consulted, Dr. Hsu - Ortho consulted, Dr. Day - ID consulted, continue Zosyn Hypokalemia, resolved - K 4.3, resolved - replete PRN Thrombocytosis - Plts 609 - continue to monitor Diarrhea - c diff NEGATIVE Hx of Hep C - Recommend treatment as out pt - encourage cessation of IVDA Ppx - Protonix - SCDs, Heparin - incentive spirometry Pt seen, examined, assessment and plan discussed with Dr Esperanza Tellez PGY1, Internal Medicine Resident <Rachel Mata - Last Filed: 04/08/18 15:52> Objective - Vital Signs/Intake and Output Vital Signs (last 24 hours): Temp Pulse Resp BP Pulse Ox 98.5 F 97 H 20 103/68 98 04/08/18 06:00 04/08/18 06:00 04/08/18 06:00 04/08/18 06:00 04/08/18 06:00 Intake and Output: 04/08/18 04/08/18 06:59 18:59 Intake Total 660 Output Total 200 Balance 460 - Medications Medications: Current Medications Acetaminophen (Tylenol 325mg Tab) 650 mg PO Q6H PRN PRN Reason: Fever >100.4 F Last Admin: 04/06/18 06:36 Dose: 650 mg Benzocaine/Menthol (Cepacol Sore Throat) 1 nelson MT Q2H PRN PRN Reason: Sore Throat Last Admin: 03/31/18 03:20 Dose: 1 nelson Heparin Sodium (Porcine) (Heparin) 5,000 units SC Q8 KIMBERLEE; Protocol Last Admin: 04/08/18 13:01 Dose: 5,000 units Piperacillin Sod/Tazobactam Sod (Zosyn 3.375 In Ns 100ml) 100 mls @ 25 mls/hr IVPB Q8 KIMBERLEE; Protocol Stop: 04/30/18 22:16 Last Admin: 04/08/18 13:01 Dose: 25 mls/hr Morphine Sulfate (Morphine) 1 mg IVP Q6H PRN PRN Reason: Pain, severe (8-10) Last Admin: 04/08/18 08:26 Dose: 1 mg Ondansetron HCl (Zofran Inj) 4 mg IVP Q6H PRN PRN Reason: Nausea/Vomiting Last Admin: 03/28/18 14:06 Dose: 4 mg Oxycodone HCl (Oxycodone Immediate Release Tab) 15 mg PO Q12 KIMBERLEE Last Admin: 04/08/18 12:57 Dose: 15 mg Pantoprazole Sodium (Protonix Ec Tab) 40 mg PO 0600 KIMBERLEE Last Admin: 04/08/18 05:42 Dose: Not Given - Labs Labs: 04/08/18 06:30 04/07/18 06:45 PT 14.2 SECONDS (9.4-12.5) H 03/28/18 06:30 INR 1.23 03/28/18 06:30 APTT 26.1 Seconds (25.1-36.5) 03/28/18 06:30 Attending/Attestation - Attestation I have personally seen and examined this patient.: Yes I have fully participated in the care of the patient.: Yes I have reviewed all pertinent clinical information, including history, physical exam and plan: Yes Notes (Text): 04/08/18 15:41 Attending note; Patient seen and examined with resident. Complaining of pain in the right upper quadrant and left hip on ambulating. status post drain placement for perihepatic liver abscess. draining well. no leakage noted. Denies any fevers, chills. Denies any nausea, vomiting. Patient is a 47-year-old male with past medical history significant for polysubstance abuse, sciatica, hepatitis C, left hip septic joint status post washout that presented to the emergency room with left hip pain and abdominal discomfort. 1. Liver abscess. Status post liver abscess drainage and drain placement yesterday. no leakage noted. Repeat culture sent. Continue Zosyn. Blood cultures with no growth. Previous abscess culture grew E.coli. Repeat CT of abdomen and pelvis ordered. 2. Anemia. Chronic. H&H stable. No active bleeding noted. Monitor closely. 3. History of active drug abuse; complete heroin cessation is strongly advised. 4. Pain Management with morphine IV when necessary. Started on long-acting oxycodone. 5. Hepatitis C. secondary to drug abuse . HIV is negative .Patient to follow up outpatient for treatment. Mariam will be refereed to [facility] for hepatitis c treatment. PT evaluation appreciated. Upon discharge patient will be referred to [facility] clinic. 04/08/18 15:51
--- NOTE | 2018-04-07 17:23 | PN ---
DATE: 04/07/2018 SUBJECTIVE: The patient is in bed in no acute distress. PHYSICAL EXAMINATION: VITAL SIGNS: Temperature is 98, T-max is 100.3, respiratory rate of 20, heart rate of 118. HEENT: Unremarkable. NECK: Supple. LABORATORY DATA: Laboratory examination reveals a white count of 6.4, hemoglobin of 7, platelets of 609. Chemistries reveals a BUN of 9, creatinine of 0.5, alk phos is 279. Procalcitonin is noted. Toxicology is noted and serology is negative. Microbiology reveals E. Coli that is sensitive. Review of orders reveals the patient is on Zosyn. The patient had a CT abdomen and pelvis today read by Dr. Dennis . Results are noted. Dr. David Polanco's note is reviewed. ASSESSMENT AND PLAN: This is a 47-year-old with Escherichia coli liver abscess, on Zosyn. Dr. David Polanco did drain several liters of the fluid and he is concerned about the hip. This patient should have a CT of the hip also and continue Zosyn. Prognosis is poor for this patient. Ty Will MD
[2018-04-08] MEDS: Piperacillin/Tazobact 3.375 gm 100 ML IVPB SCH ×3 (05:42→21:34)
[2018-04-08] MEDS: Pantoprazole 40 mg EC Tab PO SCH (05:42)
[2018-04-08 07:00] LABS: HEMOGLOBIN 7.6 g/dL (14.0-18.0); MEAN CORPUSCULAR HEMOGLOBIN 22.6 pg (25.0-35.0); MEAN CORPUSCULAR HGB CONC 30.9 g/dl (31.0-37.0); RBC 3.37 10^6/uL (3.5-6.1); RED CELL DISTRIBUTION WIDTH 19.2 % (11.5-14.5); WHITE BLOOD COUNT 7.3 10^3/uL (4.5-11.0)
[2018-04-08] MEDS: Morphine 2 mg/ml ISec IVP PRN (08:26)
[2018-04-08] MEDS: oxyCODONE 15 mg Immediate Release Tab PO SCH ×3 (10:58→21:34)
--- NOTE | 2018-04-08 15:05 | CP.PCM.PN ---
<Sean Tellez - Last Filed: 04/08/18 15:01> Subjective - Date & Time of Evaluation Date of Evaluation: 04/08/18 Time of Evaluation: 07:00 - Subjective Subjective: Pt seen and examined, denies chest pain, SOB. Drain in place draining well, no leakage. Objective - Vital Signs/Intake and Output Vital Signs (last 24 hours): Temp Pulse Resp BP Pulse Ox 98.5 F 97 H 20 103/68 98 04/08/18 06:00 04/08/18 06:00 04/08/18 06:00 04/08/18 06:00 04/08/18 06:00 Intake and Output: 04/08/18 04/08/18 06:59 18:59 Intake Total 660 Output Total 200 Balance 460 - Medications Medications: Current Medications Acetaminophen (Tylenol 325mg Tab) 650 mg PO Q6H PRN PRN Reason: Fever >100.4 F Last Admin: 04/06/18 06:36 Dose: 650 mg Benzocaine/Menthol (Cepacol Sore Throat) 1 nelson MT Q2H PRN PRN Reason: Sore Throat Last Admin: 03/31/18 03:20 Dose: 1 nelson Heparin Sodium (Porcine) (Heparin) 5,000 units SC Q8 [facility]; Protocol Last Admin: 04/08/18 13:01 Dose: 5,000 units Piperacillin Sod/Tazobactam Sod (Zosyn 3.375 In Ns 100ml) 100 mls @ 25 mls/hr IVPB Q8 [facility]; Protocol Stop: 04/30/18 22:16 Last Admin: 04/08/18 13:01 Dose: 25 mls/hr Morphine Sulfate (Morphine) 1 mg IVP Q6H PRN PRN Reason: Pain, severe (8-10) Last Admin: 04/08/18 08:26 Dose: 1 mg Ondansetron HCl (Zofran Inj) 4 mg IVP Q6H PRN PRN Reason: Nausea/Vomiting Last Admin: 03/28/18 14:06 Dose: 4 mg Oxycodone HCl (Oxycodone Immediate Release Tab) 15 mg PO Q12 [facility] Last Admin: 04/08/18 12:57 Dose: 15 mg Pantoprazole Sodium (Protonix Ec Tab) 40 mg PO 0600 [facility] Last Admin: 04/08/18 05:42 Dose: Not Given - Labs Labs: 04/08/18 06:30 04/07/18 06:45 PT 14.2 SECONDS (9.4-12.5) H 03/28/18 06:30 INR 1.23 03/28/18 06:30 APTT 26.1 Seconds (25.1-36.5) 03/28/18 06:30 - Constitutional Appears: No Acute Distress - Head Exam Head Exam: ATRAUMATIC, NORMOCEPHALIC - Eye Exam Eye Exam: EOMI - ENT Exam ENT Exam: Mucous Membranes Moist - Neck Exam Neck Exam: Full ROM - Respiratory Exam Respiratory Exam: Clear to Ausculation Bilateral, NORMAL BREATHING PATTERN. absent: Accessory Muscle Use, Respiratory Distress - Cardiovascular Exam Cardiovascular Exam: RRR, +S1, +S2. absent: Diastolic murmur, Murmur - GI/Abdominal Exam GI & Abdominal Exam: Soft, Normal Bowel Sounds Additional comments: drain in place, draining makenna pus, no signs of leakage - Extremities Exam Extremities Exam: Full ROM. absent: Pedal Edema - Neurological Exam Neurological Exam: Alert, Awake, Oriented x3 - Psychiatric Exam Psychiatric exam: Normal Affect, Normal Mood - Skin Skin Exam: Dry, Intact, Warm Assessment and Plan - Assessment and Plan (Free Text) Assessment: Pt is a 47 yo male with a PMH of substance abuse, sciatica, Hepatitis C, Left hip septic joint, and liver abscess who presented to the ED complaining of pain in his left hip who was found to have a liver abscess. Plan: Liver abscess/ L Hip Abscess/ Left Groin Abscess - Oxycodone 15 xr PO BID for pain control - Morphine 1mg IVP Q6 PRN for breakthrough pain - only order lab work every other day going forward - IR drained liver abscess on 03/28/18, cultures growing E. coli - IR reevaluated drain, drain is working well, purulent drainage, no signs of leakage - CTAP 04/07/18: near complete resolution of fluid within the abscess cavity at the right lobe liver with small loculated septate components diminished in size anterior to the medial left lobe liver inferior to the right lobe liver. The right sided locualted collection is less decompressed than the anterior component. Drainage catherter remains in good apparent position in the main segment of the abscess collection. - PT eval and treat, follow up - Ortho consulted, Dr. Day - General surgery consulted, Dr. Hsu - ID consulted, continue Zosyn Thrombocytosis - Plts 610 - continue to monitor Hypokalemia, resolved - K 4.3, resolved - replete PRN Diarrhea - c diff NEGATIVE Hx of Hep C - Recommend treatment as out pt - encourage cessation of IVDA Ppx - Protonix - SCDs, Heparin - incentive spirometry Pt seen, examined, assessment and plan discussed with Dr Esperanza Tellez PGY1, Internal Medicine Resident <Rachel Mata - Last Filed: 04/08/18 15:55> Objective - Vital Signs/Intake and Output Vital Signs (last 24 hours): Temp Pulse Resp BP Pulse Ox 98.5 F 97 H 20 103/68 98 04/08/18 06:00 04/08/18 06:00 04/08/18 06:00 04/08/18 06:00 04/08/18 06:00 Intake and Output: 04/08/18 04/08/18 06:59 18:59 Intake Total 660 Output Total 200 Balance 460 - Medications Medications: Current Medications Acetaminophen (Tylenol 325mg Tab) 650 mg PO Q6H PRN PRN Reason: Fever >100.4 F Last Admin: 04/06/18 06:36 Dose: 650 mg Benzocaine/Menthol (Cepacol Sore Throat) 1 nelson MT Q2H PRN PRN Reason: Sore Throat Last Admin: 03/31/18 03:20 Dose: 1 nelson Heparin Sodium (Porcine) (Heparin) 5,000 units SC Q8 [facility]; Protocol Last Admin: 04/08/18 13:01 Dose: 5,000 units Piperacillin Sod/Tazobactam Sod (Zosyn 3.375 In Ns 100ml) 100 mls @ 25 mls/hr IVPB Q8 [facility]; Protocol Stop: 04/30/18 22:16 Last Admin: 04/08/18 13:01 Dose: 25 mls/hr Morphine Sulfate (Morphine) 1 mg IVP Q6H PRN PRN Reason: Pain, severe (8-10) Last Admin: 04/08/18 08:26 Dose: 1 mg Ondansetron HCl (Zofran Inj) 4 mg IVP Q6H PRN PRN Reason: Nausea/Vomiting Last Admin: 03/28/18 14:06 Dose: 4 mg Oxycodone HCl (Oxycodone Immediate Release Tab) 15 mg PO Q12 [facility] Last Admin: 04/08/18 12:57 Dose: 15 mg Pantoprazole Sodium (Protonix Ec Tab) 40 mg PO 0600 [facility] Last Admin: 04/08/18 05:42 Dose: Not Given - Labs Labs: 04/08/18 06:30 04/07/18 06:45 PT 14.2 SECONDS (9.4-12.5) H 03/28/18 06:30 INR 1.23 03/28/18 06:30 APTT 26.1 Seconds (25.1-36.5) 03/28/18 06:30 Attending/Attestation - Attestation I have personally seen and examined this patient.: Yes I have fully participated in the care of the patient.: Yes I have reviewed all pertinent clinical information, including history, physical exam and plan: Yes Notes (Text): 04/08/18 15:53 Attending note; Patient seen and examined with resident. sitting in bed. status post drain placement for perihepatic liver abscess. draining well. no leakage noted. Denies any fevers, chills. Denies any nausea, vomiting. Patient is a 47-year-old male with past medical history significant for polysubstance abuse, sciatica, hepatitis C, left hip septic joint status post washout that presented to the emergency room with left hip pain and abdominal discomfort. 1. Liver abscess. Status post liver abscess drainage and drain placement yesterday. no leakage noted. so far 80cc drainage from the drain. dressing clean and intact. Repeat culture sent. Continue Zosyn. Blood cultures with no growth. Previous abscess culture grew E.coli. Repeat CT of abdomen and pelvis showed near-complete resolution of right-sided abscess. We will follow up with ID for duration of antibiotics. 2. Anemia. Chronic. H&H stable. No active bleeding noted. Monitor closely. 3. History of active drug abuse; complete heroin cessation is strongly advised. 4. Pain Management with morphine IV when necessary. Started on long-acting oxycodone. 5. Hepatitis C. secondary to drug abuse . HIV is negative .Patient to follow up outpatient for treatment. Racheleetn will be refereed to [facility] for hepatitis c treatment. PT evaluation appreciated. Rehabilitation recommended. Patient has no payer's source. division manager evaluation appreciated. Upon discharge [place] [facility] [place] 04/08/18 15:53 04/08/18 15:54
--- NOTE | 2018-04-08 16:43 | CP.PCM.PN ---
<Glenis Orr - Last Filed: 04/08/18 16:47> Subjective - Date & Time of Evaluation Date of Evaluation: 04/08/18 Time of Evaluation: 16:38 - Subjective Subjective: ID progress note PGY-[address] graham Pt states that pain on R flank improves but L groin is more painful now. No other acute complaints per 12 pt ROS Objective - Vital Signs/Intake and Output Vital Signs (last 24 hours): Temp Pulse Resp BP Pulse Ox 98.8 F 104 H 20 109/67 99 04/08/18 14:00 04/08/18 14:00 04/08/18 14:00 04/08/18 14:00 04/08/18 14:00 Intake and Output: 04/08/18 04/08/18 06:59 18:59 Intake Total 660 Output Total 200 Balance 460 - Medications Medications: Current Medications Acetaminophen (Tylenol 325mg Tab) 650 mg PO Q6H PRN PRN Reason: Fever >100.4 F Last Admin: 04/06/18 06:36 Dose: 650 mg Benzocaine/Menthol (Cepacol Sore Throat) 1 nelson MT Q2H PRN PRN Reason: Sore Throat Last Admin: 03/31/18 03:20 Dose: 1 nelson Heparin Sodium (Porcine) (Heparin) 5,000 units SC Q8 [facility]; Protocol Last Admin: 04/08/18 13:01 Dose: 5,000 units Piperacillin Sod/Tazobactam Sod (Zosyn 3.375 In Ns 100ml) 100 mls @ 25 mls/hr IVPB Q8 [facility]; Protocol Stop: 04/30/18 22:16 Last Admin: 04/08/18 13:01 Dose: 25 mls/hr Morphine Sulfate (Morphine) 1 mg IVP Q6H PRN PRN Reason: Pain, severe (8-10) Last Admin: 04/08/18 08:26 Dose: 1 mg Ondansetron HCl (Zofran Inj) 4 mg IVP Q6H PRN PRN Reason: Nausea/Vomiting Last Admin: 03/28/18 14:06 Dose: 4 mg Oxycodone HCl (Oxycodone Immediate Release Tab) 15 mg PO Q12 [facility] Last Admin: 04/08/18 12:57 Dose: 15 mg Pantoprazole Sodium (Protonix Ec Tab) 40 mg PO 0600 [facility] Last Admin: 04/08/18 05:42 Dose: Not Given - Labs Labs: 04/08/18 06:30 04/07/18 06:45 PT 14.2 SECONDS (9.4-12.5) H 03/28/18 06:30 INR 1.23 03/28/18 06:30 APTT 26.1 Seconds (25.1-36.5) 03/28/18 06:30 - Constitutional Appears: No Acute Distress - Head Exam Head Exam: ATRAUMATIC, NORMAL INSPECTION, NORMOCEPHALIC - Eye Exam Eye Exam: EOMI, Normal appearance, PERRL. absent: Scleral icterus Pupil Exam: NORMAL ACCOMODATION - ENT Exam ENT Exam: Mucous Membranes Moist - Neck Exam Additional comments: supple - Respiratory Exam Respiratory Exam: Decreased Breath Sounds (b/l lung bases), Clear to Ausculation Bilateral, NORMAL BREATHING PATTERN. absent: Rales, Rhonchi, Wheezes - Cardiovascular Exam Cardiovascular Exam: REGULAR RHYTHM, +S1, +S2. absent: Murmur - GI/Abdominal Exam GI & Abdominal Exam: Soft, Tenderness (on palpation of pigtail drain area, much improved, milky yellow drainage), Hypoactive Bowel Sounds - Extremities Exam Extremities Exam: absent: Calf Tenderness, Pedal Edema Additional comments: L groin induration and painful on palpation, no exudate - Back Exam Back Exam: absent: CVA tenderness (L), CVA tenderness (R) - Neurological Exam Neurological Exam: Alert, Awake - Psychiatric Exam Psychiatric exam: Normal Affect, Normal Mood - Skin Skin Exam: Dry, Warm Assessment and Plan - Assessment and Plan (Free Text) Plan: Mr Ely, 47M, with PMH of substance abuse, sciatica, Hepatitis C, Left hip septic joint, and liver abscess (2 loculations) and L groin abscess admitted for left hip pain and liver abscess. A E coli Liver abscess s/p drainage (03/28/18) re-adjustment drainage (04/07/17) L Hip Abscess/ Left Groin Abscess s/p I&D (Jan 2018), MRSA, Questionable completion of IV dalvance weekly x 2 week and cipro 500 PO BID x 6 weeks New fever is likely from persistence abscess from malfunctioning pigtail drain - resolved Hx MRSA and klebsiella bacteremia (11/17/17) Active smoker, IVDU, polysubstance abuse Hx Hep C P: - Continue to monitor drainage output and clinical course - CT L Hip and pelvis w contrast to monitor L groin abscess for increaing pain - Continue zosyn (day 11) Lab/imaging: - HIV negative - Absess (03/28): e-coli - MRSA: neg - BCx: neg x 5d - CTA/P (04/01) no significant change in the size of the subcapsular abscess in the right lobe of the liver - CTA/P (04/07) near complete resolution of fluid within abscess cavity with small loculations diminished in size s/r/d/w Dr Graham <Sharif Graham - Last Filed: 04/08/18 23:16> Objective - Vital Signs/Intake and Output Vital Signs (last 24 hours): Temp Pulse Resp BP Pulse Ox 97.7 F 116 H 18 103/65 98 04/08/18 22:00 04/08/18 22:00 04/08/18 22:00 04/08/18 22:00 04/08/18 22:00 - Medications Medications: Current Medications Acetaminophen (Tylenol 325mg Tab) 650 mg PO Q6H PRN PRN Reason: Fever >100.4 F Last Admin: 04/06/18 06:36 Dose: 650 mg Benzocaine/Menthol (Cepacol Sore Throat) 1 nelson MT Q2H PRN PRN Reason: Sore Throat Last Admin: 03/31/18 03:20 Dose: 1 nelson Heparin Sodium (Porcine) (Heparin) 5,000 units SC Q8 [facility]; Protocol Last Admin: 04/08/18 21:43 Dose: Not Given Piperacillin Sod/Tazobactam Sod (Zosyn 3.375 In Ns 100ml) 100 mls @ 25 mls/hr IVPB Q8 [facility]; Protocol Stop: 04/30/18 22:16 Last Admin: 04/08/18 21:34 Dose: 25 mls/hr Morphine Sulfate (Morphine) 1 mg IVP Q6H PRN PRN Reason: Pain, severe (8-10) Last Admin: 04/08/18 08:26 Dose: 1 mg Ondansetron HCl (Zofran Inj) 4 mg IVP Q6H PRN PRN Reason: Nausea/Vomiting Last Admin: 03/28/18 14:06 Dose: 4 mg Oxycodone HCl (Oxycodone Immediate Release Tab) 15 mg PO Q12 [facility] Last Admin: 04/08/18 21:34 Dose: 15 mg Pantoprazole Sodium (Protonix Ec Tab) 40 mg PO 0600 [facility] Last Admin: 04/08/18 05:42 Dose: Not Given - Labs Labs: 04/08/18 06:30 04/07/18 06:45 PT 14.2 SECONDS (9.4-12.5) H 03/28/18 06:30 INR 1.23 03/28/18 06:30 APTT 26.1 Seconds (25.1-36.5) 03/28/18 06:30 Assessment and Plan - Assessment and Plan (Free Text) Plan: Infectious diseases Attending Physician Attestation Patient seen and examined, discussed with medical file clerk. I have reviewed the patient's history of present illness, past medical, social, personal and family histories, pertinent physical exam findings, course so far in this hospital admission, pertinent laboratory and imaging results. I agree with the above f indings, assessment and plan. In addition, continue Zosyn for patient with liver abscess with E. coli. Repeat drainage was done and abscess catheter re-adjusted - repeat CT A/P is showing significant decreased in liver abscess size. Follow up abscess cultures from 04/06.
[2018-04-09] MEDS: Morphine 2 mg/ml ISec IVP PRN ×2 (02:32→13:41)
[2018-04-09] MEDS: Pantoprazole 40 mg EC Tab PO SCH (05:54)
[2018-04-09] MEDS: Piperacillin/Tazobact 3.375 gm 100 ML IVPB SCH ×3 (05:54→21:47)
[2018-04-09 06:55] LABS: BLOOD UREA NITROGEN 12 mg/dL (7-21); GFR NON-AFRICAN AMERICAN > 60
[2018-04-09 06:58] LABS: ALB/GLOB RATIO 0.6 (1.1-1.8); ALBUMIN 3.2 g/dL (3.0-4.8); ALT/SGPT 50 U/L (7-56); AST/SGOT 61 U/L (17-59); CALCIUM 9.2 mg/dL (8.4-10.5)
[2018-04-09 07:00] LABS: HEMOGLOBIN 7.4 g/dL (14.0-18.0); MEAN CELL VOLUME 74.2 fl (80.0-105.0); MEAN CORPUSCULAR HEMOGLOBIN 22.4 pg (25.0-35.0); MEAN CORPUSCULAR HGB CONC 30.2 g/dl (31.0-37.0); MEAN PLATELET VOLUME 7.9 fl (7.0-11.0); RBC 3.3 10^6/uL (3.5-6.1); RED CELL DISTRIBUTION WIDTH 19.3 % (11.5-14.5); WHITE BLOOD COUNT 10.9 10^3/uL (4.5-11.0)
[2018-04-09] MEDS: oxyCODONE 15 mg Immediate Release Tab PO SCH ×2 (10:37→21:46)
--- NOTE | 2018-04-09 11:09 | CP.PCM.PN ---
<Noni Howe - Last Filed: 04/09/18 15:38> Subjective - Date & Time of Evaluation Date of Evaluation: 04/09/18 Time of Evaluation: 11:09 - Subjective Subjective: PGY1 Progress Note for Dr. Mata Patient was seen and evaluated at bedside this morning. Patient denies chest pain, SOB, headache, nausea, vomiting, fever, chills, and/or lower extremity pain. Patient continues to have L groin pain. Objective - Vital Signs/Intake and Output Vital Signs (last 24 hours): Temp Pulse Resp BP Pulse Ox 97.7 F 116 H 18 103/65 98 04/08/18 22:00 04/08/18 22:00 04/08/18 22:00 04/08/18 22:00 04/08/18 22:00 Intake and Output: 04/09/18 04/09/18 06:59 18:59 Intake Total 250 Output Total 400 90 Balance -150 -90 - Medications Medications: Current Medications Acetaminophen (Tylenol 325mg Tab) 650 mg PO Q6H PRN PRN Reason: Fever >100.4 F Last Admin: 04/06/18 06:36 Dose: 650 mg Benzocaine/Menthol (Cepacol Sore Throat) 1 nelson MT Q2H PRN PRN Reason: Sore Throat Last Admin: 03/31/18 03:20 Dose: 1 nelson Heparin Sodium (Porcine) (Heparin) 5,000 units SC Q8 [facility]; Protocol Last Admin: 04/09/18 05:54 Dose: 5,000 units Piperacillin Sod/Tazobactam Sod (Zosyn 3.375 In Ns 100ml) 100 mls @ 25 mls/hr IVPB Q8 [facility]; Protocol Stop: 04/30/18 22:16 Last Admin: 04/09/18 05:54 Dose: 25 mls/hr Morphine Sulfate (Morphine) 1 mg IVP Q6H PRN PRN Reason: Pain, severe (8-10) Last Admin: 04/09/18 02:32 Dose: 1 mg Ondansetron HCl (Zofran Inj) 4 mg IVP Q6H PRN PRN Reason: Nausea/Vomiting Last Admin: 03/28/18 14:06 Dose: 4 mg Oxycodone HCl (Oxycodone Immediate Release Tab) 15 mg PO Q12 [facility] Last Admin: 04/09/18 10:37 Dose: 15 mg Pantoprazole Sodium (Protonix Ec Tab) 40 mg PO 0600 [facility] Last Admin: 04/09/18 05:54 Dose: 40 mg - Labs Labs: 04/09/18 06:30 04/09/18 06:30 PT 14.2 SECONDS (9.4-12.5) H 03/28/18 06:30 INR 1.23 03/28/18 06:30 APTT 26.1 Seconds (25.1-36.5) 03/28/18 06:30 - Additional Findings Additional findings: - Constitutional Appears: No Acute Distress - Head Exam Head Exam: ATRAUMATIC, NORMOCEPHALIC - Eye Exam Eye Exam: EOMI - ENT Exam ENT Exam: Mucous Membranes Moist - Neck Exam Neck Exam: Full ROM - Respiratory Exam Respiratory Exam: Clear to Ausculation Bilateral, NORMAL BREATHING PATTERN. absent: Accessory Muscle Use, Respiratory Distress - Cardiovascular Exam Cardiovascular Exam: RRR, +S1, +S2. absent: Diastolic murmur, Murmur - GI/Abdominal Exam GI & Abdominal Exam: Soft, Normal Bowel Sounds Additional comments: drain in place, draining makenna pus, no signs of leakage - Extremities Exam Extremities Exam: Full ROM. absent: Pedal Edema - Neurological Exam Neurological Exam: Alert, Awake, Oriented x3 - Psychiatric Exam Psychiatric exam: Normal Affect, Normal Mood - Skin Skin Exam: Dry, Intact, Warm Assessment and Plan - Assessment and Plan (Free Text) Assessment: Patient is a 47 yo male with a PMH of substance abuse, sciatica, Hepatitis C, Left hip septic joint, and liver abscess who presented to the ED complaining of pain in his left hip who was found to have a liver abscess. Plan: Liver abscess/ L Hip Abscess/ Left Groin Abscess - Continue Oxycodone 15 xr PO BID for pain control - Continue Morphine 1mg IVP Q6 PRN for breakthrough pain - Only order lab work every other day going forward - IR drained liver abscess on 03/28/18, cultures growing E. coli - IR reevaluated drain, drain is working well, purulent drainage, no signs of leakage - CTAP 04/07/18: near complete resolution of fluid within the abscess cavity at the right lobe liver with small loculated septate components diminished in size anterior to the medial left lobe liver inferior to the right lobe liver. The right sided locualted collection is less decompressed than the anterior component. Drainage catherter remains in good apparent position in the main segment of the abscess collection. - PT eval and treat, follow up - Ortho consulted, Dr. Day; Recommendations appreciated - General surgery consulted, Dr. Hsu; Recommendations appreciated - ID consulted, Dr. Will; Recommendations appreciated - Continue to monitor drainage output and clinical course - CT L Hip and pelvis w contrast to monitor L groin abscess for increasing pain - Continue zosyn (day 12) Thrombocytosis - Plts =613 - Continue to monitor Hypokalemia, resolved - K 4.1 - Replete PRN Diarrhea - C diff NEGATIVE Hx of Hep C - Recommend treatment as out patient - Encouraged complete cessation of IVDA Ppx - GI: Protonix - DVT: SCDs, Heparin - Incentive spirometry Patient seen and case discussed in detail with Dr Esperanza Howe PGY1 <Rachel Mata - Last Filed: 04/10/18 11:20> Objective - Vital Signs/Intake and Output Vital Signs (last 24 hours): Temp Pulse Resp BP Pulse Ox 98 F 90 18 114/72 99 04/10/18 06:00 04/10/18 06:00 04/10/18 06:00 04/10/18 06:00 04/10/18 06:00 Intake and Output: 04/10/18 04/10/18 06:59 18:59 Intake Total 250 Output Total 120 Balance 130 - Medications Medications: Current Medications Acetaminophen (Tylenol 325mg Tab) 650 mg PO Q6H PRN PRN Reason: Fever >100.4 F Last Admin: 04/06/18 06:36 Dose: 650 mg Benzocaine/Menthol (Cepacol Sore Throat) 1 nelson MT Q2H PRN PRN Reason: Sore Throat Last Admin: 03/31/18 03:20 Dose: 1 nelson Heparin Sodium (Porcine) (Heparin) 5,000 units SC Q8 [facility]; Protocol Last Admin: 04/10/18 05:20 Dose: 5,000 units Piperacillin Sod/Tazobactam Sod (Zosyn 3.375 In Ns 100ml) 100 mls @ 25 mls/hr IVPB Q8 [facility]; Protocol Stop: 04/30/18 22:16 Last Admin: 04/10/18 05:20 Dose: 25 mls/hr Morphine Sulfate (Morphine) 1 mg IVP Q6H PRN PRN Reason: Pain, severe (8-10) Last Admin: 04/10/18 00:49 Dose: 1 mg Ondansetron HCl (Zofran Inj) 4 mg IVP Q6H PRN PRN Reason: Nausea/Vomiting Last Admin: 03/28/18 14:06 Dose: 4 mg Oxycodone HCl (Oxycodone Immediate Release Tab) 15 mg PO Q12 [facility] Last Admin: 04/10/18 10:15 Dose: 15 mg Pantoprazole Sodium (Protonix Ec Tab) 40 mg PO 0600 [facility] Last Admin: 04/10/18 05:20 Dose: 40 mg - Labs Labs: 04/09/18 06:30 04/09/18 06:30 PT 14.2 SECONDS (9.4-12.5) H 03/28/18 06:30 INR 1.23 03/28/18 06:30 APTT 26.1 Seconds (25.1-36.5) 03/28/18 06:30 Attending/Attestation - Attestation I have personally seen and examined this patient.: Yes I have fully participated in the care of the patient.: Yes I have reviewed all pertinent clinical information, including history, physical exam and plan: Yes Notes (Text): 04/10/18 11:17 Attending note; Patient seen and examined with resident. Planing of left hip pain. Improving slowly. status post drain placement for perihepatic liver abscess. no leakage noted.SHERLY drain has only few ml of pus. Denies any fevers, chills. Denies any nausea, vomiting. Patient is a 47-year-old male with past medical history significant for polysubstance abuse, sciatica, hepatitis C, left hip septic joint status post washout that presented to the emergency room with left hip pain and abdominal discomfort. 1. Liver abscess. Status post liver abscess drainage and drain placement yesterday. no leakage noted. so far few drainage from the drain today. dressing clean and intact. Repeat culture showed Escherichia coli and Streptococcus. Blood cultures with no growth. Previous abscess culture grew E.coli. Repeat CT of abdomen and pelvis showed near-complete resolution of right-sided abscess. We will follow up with ID for duration of antibiotics. Follow-up with interventional radiology for removal of the drain. 2. Anemia. Chronic. H&H stable. hb is 7.4. No active bleeding noted. Monitor closely. 3. History of active drug abuse; complete heroin cessation is strongly advised. 4. Pain Management with morphine IV when necessary. Started on long-acting oxycodone. 5. Hepatitis C. secondary to drug abuse . HIV is negative .Patient to follow up outpatient for treatment. Mariam will be refereed to [facility] for hepatitis c treatment. Continue physical therapy. media manager evaluation appreciated. Upon discharge [place] [facility] [place]
--- NOTE | 2018-04-09 23:29 | PN ---
DATE: 04/09/2018 SUBJECTIVE: The patient is seen earlier this morning. PHYSICAL EXAMINATION: VITAL SIGNS: Temperature is 97, blood pressure is 115/70, respiratory rate of 18. HEENT: Unremarkable. NECK: Supple. LUNGS: Decreased breath sounds. HEART: Normal S1 and S2. ABDOMEN: Soft. LABORATORY DATA: Reveals a white count of 10,000, hemoglobin of 7. BUN of 12, creatinine of 0.5. Procalcitonin is 1.07. Microbiology reveals cultures are noted, E. coli and Streptococcus sanguinis. REVIEW OF ORDERS: Reveals the patient to be on Zosyn. ASSESSMENT AND PLAN: This is a 47-year-old male with hepatitis C, substance abuse, sciatica, Escherichia coli, liver abscess, status post drainage, on Zosyn. Overall, the patient is improving slowly. Ty Will MD
[2018-04-10] MEDS: Morphine 2 mg/ml ISec IVP PRN ×2 (00:49→15:28)
[2018-04-10] MEDS: Piperacillin/Tazobact 3.375 gm 100 ML IVPB SCH ×3 (05:20→21:09)
[2018-04-10] MEDS: Pantoprazole 40 mg EC Tab PO SCH (05:20)
--- NOTE | 2018-04-10 10:03 | CP.PCM.PN ---
<Noni Howe - Last Filed: 04/10/18 11:23> Subjective - Date & Time of Evaluation Date of Evaluation: 04/10/18 Time of Evaluation: 10:03 - Subjective Subjective: PGY1 Medicine Progress Note for Dr. Mata Patient was seen and evaluated at bedside. No complaints overnight. Patient tolerating diet well. Patient still complains of hip pain that he states improves with pain medication. Patient currently denies chest pain, palpitations, shortness of breath, abdominal pain, dysuria, dizziness, headaches, confusion, fever and/or chills. Objective - Vital Signs/Intake and Output Vital Signs (last 24 hours): Temp Pulse Resp BP Pulse Ox 98 F 90 18 114/72 99 04/10/18 06:00 04/10/18 06:00 04/10/18 06:00 04/10/18 06:00 04/10/18 06:00 Intake and Output: 04/10/18 04/10/18 06:59 18:59 Intake Total 250 Output Total 120 Balance 130 - Medications Medications: Current Medications Acetaminophen (Tylenol 325mg Tab) 650 mg PO Q6H PRN PRN Reason: Fever >100.4 F Last Admin: 04/06/18 06:36 Dose: 650 mg Benzocaine/Menthol (Cepacol Sore Throat) 1 nelson MT Q2H PRN PRN Reason: Sore Throat Last Admin: 03/31/18 03:20 Dose: 1 nelson Heparin Sodium (Porcine) (Heparin) 5,000 units SC Q8 [facility]; Protocol Last Admin: 04/10/18 05:20 Dose: 5,000 units Piperacillin Sod/Tazobactam Sod (Zosyn 3.375 In Ns 100ml) 100 mls @ 25 mls/hr IVPB Q8 [facility]; Protocol Stop: 04/30/18 22:16 Last Admin: 04/10/18 05:20 Dose: 25 mls/hr Morphine Sulfate (Morphine) 1 mg IVP Q6H PRN PRN Reason: Pain, severe (8-10) Last Admin: 04/10/18 00:49 Dose: 1 mg Ondansetron HCl (Zofran Inj) 4 mg IVP Q6H PRN PRN Reason: Nausea/Vomiting Last Admin: 03/28/18 14:06 Dose: 4 mg Oxycodone HCl (Oxycodone Immediate Release Tab) 15 mg PO Q12 [facility] Last Admin: 04/09/18 21:46 Dose: 15 mg Pantoprazole Sodium (Protonix Ec Tab) 40 mg PO 0600 [facility] Last Admin: 04/10/18 05:20 Dose: 40 mg - Labs Labs: 04/09/18 06:30 04/09/18 06:30 PT 14.2 SECONDS (9.4-12.5) H 03/28/18 06:30 INR 1.23 03/28/18 06:30 APTT 26.1 Seconds (25.1-36.5) 03/28/18 06:30 - Additional Findings Additional findings: - Additional Findings Additional findings: - Constitutional Appears: No Acute Distress - Head Exam Head Exam: ATRAUMATIC, NORMOCEPHALIC - Eye Exam Eye Exam: EOMI - ENT Exam ENT Exam: Mucous Membranes Moist - Neck Exam Neck Exam: Full ROM - Respiratory Exam Respiratory Exam: Clear to Ausculation Bilateral, NORMAL BREATHING PATTERN. absent: Accessory Muscle Use, Respiratory Distress - Cardiovascular Exam Cardiovascular Exam: RRR, +S1, +S2. absent: Diastolic murmur, Murmur - GI/Abdominal Exam GI & Abdominal Exam: Soft, Normal Bowel Sounds Additional comments: drain in place, no signs of leakage - Extremities Exam Extremities Exam: Full ROM. absent: Pedal Edema - Neurological Exam Neurological Exam: Alert, Awake, Oriented x3 - Psychiatric Exam Psychiatric exam: Normal Affect, Normal Mood - Skin Skin Exam: Dry, Intact, Warm Assessment and Plan - Assessment and Plan (Free Text) Assessment: Patient is a 47 yo male with a PMH of substance abuse, sciatica, Hepatitis C, Left hip septic joint, and liver abscess who presented to the ED complaining of pain in his left hip who was found to have a liver abscess. Plan: Liver abscess/ L Hip Abscess/ Left Groin Abscess - Continue Oxycodone 15 xr PO BID for pain control - Continue Morphine 1mg IVP Q6 PRN for breakthrough pain - Only order lab work every other day going forward - IR drained liver abscess on 03/28/18, cultures growing E. coli - IR reevaluated drain, drain is working well, purulent drainage, no signs of leakage - CTAP 04/07/18: near complete resolution of fluid within the abscess cavity at the right lobe liver with small loculated septate components diminished in size anterior to the medial left lobe liver inferior to the right lobe liver. The right sided locualted collection is less decompressed than the anterior component. Drainage catherter remains in good apparent position in the main segment of the abscess collection. - PT eval and treat, follow up - Ortho consulted, Dr. Day; Recommendations appreciated - General surgery consulted, Dr. Hsu; Recommendations appreciated - ID consulted, Dr. Will; Recommendations appreciated - Continue to monitor drainage output and clinical course - CT L Hip and pelvis w contrast to monitor L groin abscess for increasing pain - Continue zosyn (day 13) Thrombocytosis - Plts =613 04/09/18 - Continue to monitor Hypokalemia, resolved - Replete PRN Diarrhea - C diff NEGATIVE Hx of Hep C - Recommend treatment as out patient - Encouraged complete cessation of IVDA Ppx - GI: Protonix - DVT: SCDs, Heparin - Incentive spirometry Patient seen and case discussed in detail with Dr Esperanza Howe PGY1 <Rachel Mata - Last Filed: 04/10/18 12:04> Objective - Vital Signs/Intake and Output Vital Signs (last 24 hours): Temp Pulse Resp BP Pulse Ox 98 F 90 18 114/72 99 04/10/18 06:00 04/10/18 06:00 04/10/18 06:00 04/10/18 06:00 04/10/18 06:00 Intake and Output: 04/10/18 04/10/18 06:59 18:59 Intake Total 250 Output Total 120 Balance 130 - Medications Medications: Current Medications Acetaminophen (Tylenol 325mg Tab) 650 mg PO Q6H PRN PRN Reason: Fever >100.4 F Last Admin: 04/06/18 06:36 Dose: 650 mg Benzocaine/Menthol (Cepacol Sore Throat) 1 nelson MT Q2H PRN PRN Reason: Sore Throat Last Admin: 03/31/18 03:20 Dose: 1 nelson Heparin Sodium (Porcine) (Heparin) 5,000 units SC Q8 [facility]; Protocol Last Admin: 04/10/18 05:20 Dose: 5,000 units Piperacillin Sod/Tazobactam Sod (Zosyn 3.375 In Ns 100ml) 100 mls @ 25 mls/hr IVPB Q8 [facility]; Protocol Stop: 04/30/18 22:16 Last Admin: 04/10/18 05:20 Dose: 25 mls/hr Morphine Sulfate (Morphine) 1 mg IVP Q6H PRN PRN Reason: Pain, severe (8-10) Last Admin: 04/10/18 00:49 Dose: 1 mg Ondansetron HCl (Zofran Inj) 4 mg IVP Q6H PRN PRN Reason: Nausea/Vomiting Last Admin: 03/28/18 14:06 Dose: 4 mg Oxycodone HCl (Oxycodone Immediate Release Tab) 15 mg PO Q12 [facility] Last Admin: 04/10/18 10:15 Dose: 15 mg Pantoprazole Sodium (Protonix Ec Tab) 40 mg PO 0600 [facility] Last Admin: 04/10/18 05:20 Dose: 40 mg - Labs Labs: 04/09/18 06:30 04/09/18 06:30 PT 14.2 SECONDS (9.4-12.5) H 03/28/18 06:30 INR 1.23 03/28/18 06:30 APTT 26.1 Seconds (25.1-36.5) 03/28/18 06:30 Attending/Attestation - Attestation I have personally seen and examined this patient.: Yes I have fully participated in the care of the patient.: Yes I have reviewed all pertinent clinical information, including history, physical exam and plan: Yes Notes (Text): 04/10/18 11:56 Attending note; Patient seen and examined with resident. still with left pain on and off. status post drain placement for perihepatic liver abscess. no leakage noted.SHERLY drain has only few ml of pus. Total 24 hour collection was 210cc. Denies any fevers, chills. Denies any nausea, vomiting. Patient is a 47-year-old male with past medical history significant for polysubstance abuse, sciatica, hepatitis C, left hip septic joint status post washout that presented to the emergency room with left hip pain and abdominal discomfort. 1. Liver abscess. Status post liver abscess drainage and drain placement yesterday. no leakage noted. dressing clean and intact. Repeat culture showed Escherichia coli and Streptococcus. Blood cultures with no growth. Previous abscess culture grew E.coli. Repeat CT of abdomen and pelvis showed near-complete resolution of right-sided abscess. We will follow up with ID for duration of antibiotics. CT of the left hip recommended by ID. Patient preferred to do tomorrow. We will reorder it again. Follow-up with interventional radiology closely for removal of the drain. 2. Anemia. Chronic. H&H stable. hb is 7.4. No active bleeding noted. Monitor closely. 3. History of active drug abuse; complete heroin cessation is strongly advised. 4. Pain Management with morphine IV when necessary. Started on long-acting oxycodone. 5. Hepatitis C. secondary to drug abuse . HIV is negative .Patient to follow up outpatient for treatment. Yulissan will be refereed to [facility] for hepatitis c treatment. Continue physical therapy. customer strategy manager evaluation appreciated. Upon discharge patient will be [place] [facility].
[2018-04-10] MEDS: oxyCODONE 15 mg Immediate Release Tab PO SCH ×2 (10:15→21:11)
--- NOTE | 2018-04-10 12:29 | PN ---
DATE: 04/10/2018 SUBJECTIVE: The patient is in bed, in no acute distress. PHYSICAL EXAMINATION: VITAL SIGNS: Temperature is 98, blood pressure is 114/70. HEENT: Unremarkable. NECK: Supple. LUNGS: Have decreased breath sounds. HEART: Normal S1, S2. ABDOMEN: Soft. LABORATORY DATA: White count of 10,000. ASSESSMENT AND PLAN: This is a 47-year-old male with hepatitis C, substance abuse, sciatica, with Escherichia coli, liver abscess, on Zosyn, status post drainage. Concerned about that left hip. The patient is having left hip pain. Image the left hip and get Orthopedics involved, although at this time we will continue Zosyn for now. Ty Will MD
[2018-04-11] MEDS: Pantoprazole 40 mg EC Tab PO SCH (05:08)
[2018-04-11] MEDS: Piperacillin/Tazobact 3.375 gm 100 ML IVPB SCH ×3 (05:09→21:06)
[2018-04-11 07:00] LABS: HEMOGLOBIN 7.9 g/dL (14.0-18.0); MEAN CELL VOLUME 74.8 fl (80.0-105.0); MEAN CORPUSCULAR HEMOGLOBIN 22.4 pg (25.0-35.0); MEAN CORPUSCULAR HGB CONC 29.9 g/dl (31.0-37.0); MEAN PLATELET VOLUME 7.6 fl (7.0-11.0); RBC 3.53 10^6/uL (3.5-6.1); RED CELL DISTRIBUTION WIDTH 20.5 % (11.5-14.5); WHITE BLOOD COUNT 15.3 10^3/uL (4.5-11.0)
[2018-04-11 07:30] LABS: ALB/GLOB RATIO 0.7 (1.1-1.8); ALBUMIN 3.4 g/dL (3.0-4.8); ALT/SGPT 34 U/L (7-56); AST/SGOT 59 U/L (17-59); BLOOD UREA NITROGEN 19 mg/dL (7-21); CALCIUM 9.6 mg/dL (8.4-10.5); GFR NON-AFRICAN AMERICAN > 60
[2018-04-11] MEDS: oxyCODONE 15 mg Immediate Release Tab PO SCH ×2 (09:15→21:06)
[2018-04-11] MEDS: Morphine 2 mg/ml ISec IVP PRN ×2 (11:11→19:18)
--- NOTE | 2018-04-11 11:26 | CP.PCM.PN ---
<Sean Tellez - Last Filed: 04/11/18 11:23> Subjective - Date & Time of Evaluation Date of Evaluation: 04/11/18 Time of Evaluation: 06:45 - Subjective Subjective: Pt seen and examined. Pt denies chest pain, SOB. Objective - Vital Signs/Intake and Output Vital Signs (last 24 hours): Temp Pulse Resp BP Pulse Ox 98.5 F 98 H 18 105/71 99 04/11/18 06:00 04/11/18 06:00 04/11/18 06:00 04/11/18 06:00 04/11/18 06:00 Intake and Output: 04/11/18 04/11/18 06:59 18:59 Output Total 420 Balance -420 - Medications Medications: Current Medications Acetaminophen (Tylenol 325mg Tab) 650 mg PO Q6H PRN PRN Reason: Fever >100.4 F Last Admin: 04/06/18 06:36 Dose: 650 mg Benzocaine/Menthol (Cepacol Sore Throat) 1 nelson MT Q2H PRN PRN Reason: Sore Throat Last Admin: 03/31/18 03:20 Dose: 1 nelson Heparin Sodium (Porcine) (Heparin) 5,000 units SC Q8 [facility]; Protocol Last Admin: 04/11/18 05:07 Dose: 5,000 units Piperacillin Sod/Tazobactam Sod (Zosyn 3.375 In Ns 100ml) 100 mls @ 25 mls/hr IVPB Q8 [facility]; Protocol Stop: 04/30/18 22:16 Last Admin: 04/11/18 05:09 Dose: 25 mls/hr Morphine Sulfate (Morphine) 1 mg IVP Q6H PRN PRN Reason: Pain, severe (8-10) Last Admin: 04/11/18 11:11 Dose: 1 mg Ondansetron HCl (Zofran Inj) 4 mg IVP Q6H PRN PRN Reason: Nausea/Vomiting Last Admin: 03/28/18 14:06 Dose: 4 mg Oxycodone HCl (Oxycodone Immediate Release Tab) 15 mg PO Q12 [facility] Last Admin: 04/11/18 09:15 Dose: 15 mg Pantoprazole Sodium (Protonix Ec Tab) 40 mg PO 0600 [facility] Last Admin: 04/11/18 05:08 Dose: 40 mg - Labs Labs: 04/11/18 06:30 04/11/18 06:30 PT 14.2 SECONDS (9.4-12.5) H 03/28/18 06:30 INR 1.23 03/28/18 06:30 APTT 26.1 Seconds (25.1-36.5) 03/28/18 06:30 - Head Exam Head Exam: ATRAUMATIC, NORMOCEPHALIC - Eye Exam Eye Exam: EOMI - ENT Exam ENT Exam: Mucous Membranes Moist - Neck Exam Neck Exam: Full ROM - Respiratory Exam Respiratory Exam: Clear to Ausculation Bilateral, NORMAL BREATHING PATTERN. absent: Accessory Muscle Use, Respiratory Distress - Cardiovascular Exam Cardiovascular Exam: RRR, +S1, +S2. absent: Diastolic murmur, Murmur - GI/Abdominal Exam GI & Abdominal Exam: Soft, Normal Bowel Sounds - Extremities Exam Extremities Exam: Full ROM. absent: Pedal Edema - Neurological Exam Neurological Exam: Alert, Awake, Oriented x3 - Psychiatric Exam Psychiatric exam: Normal Affect, Normal Mood - Skin Skin Exam: Dry, Intact, Warm Assessment and Plan - Assessment and Plan (Free Text) Assessment: Pt is a 47 yo male with a PMH of substance abuse, sciatica, Hepatitis C, Left hip septic joint, and liver abscess who presented to the ED complaining of pain in his left hip who was found to have a liver abscess. Plan: Liver abscess/ L Hip Abscess/ Left Groin Abscess - Oxycodone 15 xr PO BID - Morphine 1mg IVP Q6 PRN for breakthrough pain - lab work every other day - IR drained liver abscess on 03/28/18, cultures growing E. coli, Strep Sangius - IR reevaluated drain, drain is working well, purulent drainage, no signs of leakage - CTAP 04/07/18: near complete resolution of fluid within the abscess cavity at the right lobe liver with small loculated septate components diminished in size anterior to the medial left lobe liver inferior to the right lobe liver. The right sided locualted collection is less decompressed than the anterior component. Drainage catherter remains in good apparent position in the main segment of the abscess collection. - CT L Hip and pelvis w contrast, follow up - Continue zosyn (day 14) - Continue to monitor drainage output and clinical course - PT eval and treat - Ortho consulted, Dr. Day - General surgery consulted, Dr. Hsu - ID consulted, Dr. Will - IR consulted, will follow up on how long drain needs to stay in place Thrombocytosis - Plts 606 - Continue to monitor Hypokalemia, resolved - K 4.2 - Replete PRN Diarrhea, improving - C diff NEGATIVE Hx of Hep C - Recommend treatment as out patient - Encouraged complete cessation of IVDA Ppx - Protonix - SCDs, Heparin - Incentive spirometry Pt seen, examined, assessment and plan discussed with Dr Cassie Tellez PGY1, Internal Medicine Resident <Cassie Alba R - Last Filed: 04/12/18 08:37> Objective - Vital Signs/Intake and Output Vital Signs (last 24 hours): Temp Pulse Resp BP Pulse Ox 98.7 F 105 H 18 102/59 L 98 04/11/18 21:36 04/11/18 21:36 04/11/18 21:36 04/11/18 21:36 04/11/18 21:36 Intake and Output: 04/12/18 04/12/18 06:59 18:59 Intake Total 300 Balance 300 - Medications Medications: Current Medications Acetaminophen (Tylenol 325mg Tab) 650 mg PO Q6H PRN PRN Reason: Fever >100.4 F Last Admin: 04/06/18 06:36 Dose: 650 mg Benzocaine/Menthol (Cepacol Sore Throat) 1 nelson MT Q2H PRN PRN Reason: Sore Throat Last Admin: 03/31/18 03:20 Dose: 1 nelson Heparin Sodium (Porcine) (Heparin) 5,000 units SC Q8 [facility]; Protocol Last Admin: 04/12/18 05:03 Dose: Not Given Piperacillin Sod/Tazobactam Sod (Zosyn 3.375 In Ns 100ml) 100 mls @ 25 mls/hr IVPB Q8 [facility]; Protocol Stop: 04/30/18 22:16 Last Admin: 04/12/18 05:00 Dose: 25 mls/hr Morphine Sulfate (Morphine) 1 mg IVP Q6H PRN PRN Reason: Pain, severe (8-10) Last Admin: 04/12/18 00:38 Dose: 1 mg Ondansetron HCl (Zofran Inj) 4 mg IVP Q6H PRN PRN Reason: Nausea/Vomiting Last Admin: 03/28/18 14:06 Dose: 4 mg Oxycodone HCl (Oxycodone Immediate Release Tab) 15 mg PO Q12 [facility] Last Admin: 04/11/18 21:06 Dose: 15 mg Pantoprazole Sodium (Protonix Ec Tab) 40 mg PO 0600 [facility] Last Admin: 04/12/18 05:00 Dose: 40 mg - Labs Labs: 04/11/18 06:30 04/11/18 06:30 PT 14.2 SECONDS (9.4-12.5) H 03/28/18 06:30 INR 1.23 03/28/18 06:30 APTT 26.1 Seconds (25.1-36.5) 03/28/18 06:30 Attending/Attestation - Attestation I have personally seen and examined this patient.: Yes I have fully participated in the care of the patient.: Yes I have reviewed all pertinent clinical information, including history, physical exam and plan: Yes Notes (Text): Patient seen and examined by me with resident at 10AM on 04/11/18. Case includin g HPI, physical exam, and assessment and plan discussed with resident. Agree with above with following additions/corrections. Patient is a 47-year-old male with past medical history significant for po lysubstance abuse, sciatica, hepatitis C, left hip septic joint status post washout that presented to the emergency room with left hip pain. Patient states he feels ok. Asking to go home. States he is unable to walk without assistance. Patient complains of left hip pain. States he is no longer have diarrhea and bowel movements are "thick." Patient denies abdominal pain. No nausea or vomiting. No chest pain or shortness of breath. No headaches or dizziness. No lightheadedness. No change in vision. No dysuria. No fevers or chills. Physical exam: General: Awake and alert, lying in bed in no acute distress. HEENT: Normocephalic, atraumatic, Extraocular muscles intact, pupils equal and reactive, no scleral icterus. Oropharynx is pink and moist. No pharyngeal erythema or exudate appreciated. Neck is supple. Cardiovascular: Normal rhythm. Normal S1 and S2. No murmus, rubs, or gallops appreciated. Pulmonary: Normal respiratory effort. No rhonchi, rales, or wheezing appreciated. Gastrointestinal: Soft. Nondistended No tenderness. Drain on right with purulent discharge. Positive bowel sounds all 4 quadrants. No guarding. Musculoskeletal: Moves all extremities. No calf tenderness. Bilateral lower extremity pittng edema. Left hip tenderness. Central nervous system: AAO x3, CN2-12 grossly intact. Dermatologic: Skin warm and dry. Assessment and plan: Patient is a 47-year-old male with past medical history significant for polysubstance abuse, sciatica, hepatitis C, left hip septic joint status post washout that presented to the emergency room with left hip pain. 1. Liver abscess. S/P percutaneous perihepatic drain change and aspiration of 1000ml of thick purulent green-white fluid 04/06/18. Culture growing E.coli and Streptococcus Sanguis. No leukocytosis. Afebrile. ID following, recommendations appreciated. Continue Zosyn. CT abd/pelvis 04/07/18 per radiologist showed near complete resolution of fluid within the abscess cavity at the right lobe of liver with small loculated separate components diminished in the size anterior to the medical left lobe liver and inferior to the right love liver; the right sided loculated collection is less decompressed than the anterior component; drainage catheter remains in good apparent position in the main segment of the abscess collection; cachexia and anasarca. CT abd/pelvis 04/01/18 per radiologist showed no significant change in the size of subcapsular abscess in the right lobe of the liver, a pigtail catheter is seen in place, there is a fluid level, the largest portion of the collection measures 14 x 8cm, there is a smaller loculation more anterior and inferior measuring 3.[address] abdomen and /28/18 per radiologist showed large 20 x 9.3 cm subcapsular hepatic abscess, a few tiny foci of air in the right upper quadrant which may be intraperitoneal, left groin 4.1 x 2.7 cm abscess, chronic osteomyelitis and septic arthritis of the left hip. 2. Left hip chronic osteomyelitis, septic arthritis, left groin abscess. Continue Zosyn. Pending CT of left hip and groin results. Continue with pain management. 3. Diarrhea. Resolved. C-diff negative 4. Bilateral lower extremity edema. No DVT seen on venous doppler of bilateral lower extremities. 5. Thrombocytosis. Likely reactive. Stable. Continue to monitor 6. Anemia. H&H stable. Continue to monitor CBC 7. Medication noncompliance. Patient was noncompliant with medications and follow up at last discharge, patient counseled at length on importance of medication compliance. 8. Hypokalemia. Resolved. Continue to monitor 9. Hepatitis C. Patient to follow up outpatient for treatment. Will be referred to [facility] on discharge. 10. IVDA. Patient counseled at length on cessation. 11. GI/DVT prophylaxis. Protonix/heparin Case was discussed in detail with patient regarding current diagnosis and treatment plan. All questions answered.
--- NOTE | 2018-04-11 12:33 | CT ---
Date of service: 04/11/2018 PROCEDURE: CT of the left hip without contrast HISTORY: follow up of septic hip COMPARISON: 03/25/2018 CT TECHNIQUE: Radiation dose: Total exam DLP = 181.6 mGy-cm. This CT exam was performed using one or more of the following dose reduction techniques: Automated exposure control, adjustment of the mA and/or kV according to patient size, and/or use of iterative reconstruction technique. FINDINGS: There is no change in the appearance of septic arthritis of the left hip with erosion of the femoral head and acetabulum. There is a joint effusion. No evidence of fracture. IMPRESSION: Erosive changes in the left femoral head and acetabulum consistent with septic arthritis. Findings are unchanged
--- NOTE | 2018-04-11 12:46 | CP.PCM.PN ---
Subjective - Date & Time of Evaluation Date of Evaluation: 04/11/18 Time of Evaluation: 09:05 - Subjective Subjective: Still having some RUQ pain but less, and some left hip pain, no fevers. Objective - Vital Signs/Intake and Output Vital Signs (last 24 hours): Temp Pulse Resp BP Pulse Ox 98.8 F 103 H 20 108/74 98 04/07/18 22:34 04/07/18 22:34 04/07/18 22:34 04/07/18 22:34 04/07/18 22:34 Intake and Output: 04/07/18 04/08/18 18:59 06:59 Intake Total 660 Output Total 80 200 Balance -80 460 - Medications Medications: Current Medications Acetaminophen (Tylenol 325mg Tab) 650 mg PO Q6H PRN PRN Reason: Fever >100.4 F Last Admin: 04/06/18 06:36 Dose: 650 mg Benzocaine/Menthol (Cepacol Sore Throat) 1 nelson MT Q2H PRN PRN Reason: Sore Throat Last Admin: 03/31/18 03:20 Dose: 1 nelson Heparin Sodium (Porcine) (Heparin) 5,000 units SC Q8 [facility]; Protocol Last Admin: 04/08/18 05:45 Dose: Not Given Piperacillin Sod/Tazobactam Sod (Zosyn 3.375 In Ns 100ml) 100 mls @ 25 mls/hr IVPB Q8 [facility]; Protocol Stop: 04/30/18 22:16 Last Admin: 04/08/18 05:42 Dose: 25 mls/hr Morphine Sulfate (Morphine) 1 mg IVP Q6H PRN PRN Reason: Pain, severe (8-10) Last Admin: 04/07/18 20:30 Dose: 1 mg Ondansetron HCl (Zofran Inj) 4 mg IVP Q6H PRN PRN Reason: Nausea/Vomiting Last Admin: 03/28/18 14:06 Dose: 4 mg Oxycodone HCl (Oxycodone Immediate Release Tab) 15 mg PO Q12 [facility] Last Admin: 04/07/18 21:58 Dose: 15 mg Pantoprazole Sodium (Protonix Ec Tab) 40 mg PO 0600 [facility] Last Admin: 04/08/18 05:42 Dose: Not Given - Labs Labs: 04/07/18 06:45 04/07/18 06:45 PT 14.2 SECONDS (9.4-12.5) H 03/28/18 06:30 INR 1.23 03/28/18 06:30 APTT 26.1 Seconds (25.1-36.5) 03/28/18 06:30 - Constitutional Appears: Cachectic, Chronically Ill - Head Exam Head Exam: NORMAL INSPECTION - ENT Exam ENT Exam: Mucous Membranes Moist - Neck Exam Neck Exam: absent: Meningismus - Respiratory Exam Respiratory Exam: Decreased Breath Sounds - Cardiovascular Exam Cardiovascular Exam: +S1, +S2 - GI/Abdominal Exam GI & Abdominal Exam: Soft. absent: Tenderness Additional comments: RUQ drain in place Assessment and Plan - Assessment and Plan (Free Text) Plan: Assessment liver abscess and left groin abscess S/P CT-guided drainage, growing E. coli and Strep sanguis - repeat CT A/P is showing increased size of abscess and new collection adjacent to it history of sepsis due to Staph aureus and gram negative bacilli bacteremia with right hand and wrist skin and skin structure infection dyslipidemia hepatitis C infection history of IV drug use chronic alcohol abuse Plan continue Zosyn; blood cx are negative; patient planned for repeat drainage of abscess by surgery especially with new collection noted Hepatitis C infection should be addressed as an outpatient follow up CT of left hip to evaluate left hip pain - discussed with Dr. Jake Alba
[2018-04-12] MEDS: Morphine 2 mg/ml ISec IVP PRN ×2 (00:38→13:17)
[2018-04-12] MEDS: Piperacillin/Tazobact 3.375 gm 100 ML IVPB SCH ×3 (05:00→21:32)
[2018-04-12] MEDS: Pantoprazole 40 mg EC Tab PO SCH (05:00)
[2018-04-12] MEDS: oxyCODONE 15 mg Immediate Release Tab PO SCH ×2 (09:17→21:04)
--- NOTE | 2018-04-12 14:46 | CP.PCM.PN ---
<Sean Tellez - Last Filed: 04/12/18 14:46> Subjective - Date & Time of Evaluation Date of Evaluation: 04/12/18 Time of Evaluation: 06:35 - Subjective Subjective: Pt seen and examined, denies chest pain or SOB Objective - Vital Signs/Intake and Output Vital Signs (last 24 hours): Temp Pulse Resp BP Pulse Ox 98.4 F 93 H 20 111/73 97 04/12/18 06:00 04/12/18 06:00 04/12/18 06:00 04/12/18 06:00 04/12/18 06:00 Intake and Output: 04/12/18 04/12/18 06:59 18:59 Intake Total 300 Balance 300 - Medications Medications: Current Medications Acetaminophen (Tylenol 325mg Tab) 650 mg PO Q6H PRN PRN Reason: Fever >100.4 F Last Admin: 04/06/18 06:36 Dose: 650 mg Benzocaine/Menthol (Cepacol Sore Throat) 1 nelson MT Q2H PRN PRN Reason: Sore Throat Last Admin: 03/31/18 03:20 Dose: 1 nelson Heparin Sodium (Porcine) (Heparin) 5,000 units SC Q8 [facility]; Protocol Last Admin: 04/12/18 13:20 Dose: Not Given Piperacillin Sod/Tazobactam Sod (Zosyn 3.375 In Ns 100ml) 100 mls @ 25 mls/hr IVPB Q8 [facility]; Protocol Stop: 04/30/18 22:16 Last Admin: 04/12/18 13:17 Dose: 25 mls/hr Morphine Sulfate (Morphine) 1 mg IVP Q6H PRN PRN Reason: Pain, severe (8-10) Last Admin: 04/12/18 13:17 Dose: 1 mg Ondansetron HCl (Zofran Inj) 4 mg IVP Q6H PRN PRN Reason: Nausea/Vomiting Last Admin: 03/28/18 14:06 Dose: 4 mg Oxycodone HCl (Oxycodone Immediate Release Tab) 15 mg PO Q12 [facility] Last Admin: 04/12/18 09:17 Dose: 15 mg Pantoprazole Sodium (Protonix Ec Tab) 40 mg PO 0600 [facility] Last Admin: 04/12/18 05:00 Dose: 40 mg - Labs Labs: 04/11/18 06:30 01/14/19 06:30 PT 14.2 SECONDS (9.4-12.5) H 03/28/18 06:30 INR 1.23 03/28/18 06:30 APTT 26.1 Seconds (25.1-36.5) 03/28/18 06:30 - Constitutional Appears: No Acute Distress - Head Exam Head Exam: ATRAUMATIC, NORMOCEPHALIC - Eye Exam Eye Exam: EOMI - ENT Exam ENT Exam: Mucous Membranes Moist - Neck Exam Neck Exam: Full ROM - Respiratory Exam Respiratory Exam: Clear to Ausculation Bilateral, NORMAL BREATHING PATTERN. absent: Accessory Muscle Use, Respiratory Distress - Cardiovascular Exam Cardiovascular Exam: RRR, +S1, +S2. absent: Diastolic murmur, Murmur - GI/Abdominal Exam GI & Abdominal Exam: Soft, Normal Bowel Sounds - Extremities Exam Extremities Exam: Full ROM. absent: Pedal Edema - Neurological Exam Neurological Exam: Alert, Awake, Oriented x3 - Psychiatric Exam Psychiatric exam: Normal Affect, Normal Mood - Skin Skin Exam: Dry, Intact, Warm Assessment and Plan - Assessment and Plan (Free Text) Assessment: Pt is a 47 yo male with a PMH of substance abuse, sciatica, Hepatitis C, Left hip septic joint, and liver abscess who presented to the ED complaining of pain in his left hip who was found to have a liver abscess. Plan: Liver abscess/ L Hip Abscess/ Left Groin Abscess - Oxycodone 15 xr PO BID - Morphine 1mg IVP Q6 PRN for breakthrough pain - lab work every other day - IR drained liver abscess on 03/28/18, cultures growing E. coli, Strep Sangius - IR reevaluated drain, drain is working well, purulent drainage, no signs of leakage - CTAP 04/07/18: near complete resolution of fluid within the abscess cavity at the right lobe liver with small loculated septate components diminished in size anterior to the medial left lobe liver inferior to the right lobe liver. The right sided locualted collection is less decompressed than the anterior component. Drainage catherter remains in good apparent position in the main segment of the abscess collection. - CT L Hip and pelvis w contrast, shows erosive changes in the left femoral head/ acetabulum indicative of septic arthritis - Continue zosyn (day 15) - Ortho consulted, Dr. Day - General surgery consulted, Dr. Hsu - ID consulted, Dr. Will Hypokalemia, resolved - K 4.2 - Replete PRN Thrombocytosis - Plts 606 - Continue to monitor Hx of Hep C - Encouraged complete cessation of IVDA - Recommend treatment as out patient Ppx - Protonix - SCDs, Heparin - Incentive spirometry Pt seen, examined, assessment and plan discussed with Dr Cassie Tellez PGY1, Internal Medicine Resident <Cassie Alba R - Last Filed: 04/13/18 09:17> Objective - Vital Signs/Intake and Output Vital Signs (last 24 hours): Temp Pulse Resp BP Pulse Ox 98.5 F 102 H 18 112/73 98 04/12/18 22:53 04/12/18 22:53 04/12/18 22:53 04/12/18 22:53 04/12/18 22:53 Intake and Output: 04/13/18 04/13/18 06:59 18:59 Intake Total 2050 Output Total 1640 100 Balance 410 -100 - Medications Medications: Current Medications Acetaminophen (Tylenol 325mg Tab) 650 mg PO Q6H PRN PRN Reason: Fever >100.4 F Last Admin: 04/06/18 06:36 Dose: 650 mg Benzocaine/Menthol (Cepacol Sore Throat) 1 nelson MT Q2H PRN PRN Reason: Sore Throat Last Admin: 03/31/18 03:20 Dose: 1 nelson Heparin Sodium (Porcine) (Heparin) 5,000 units SC Q8 [facility]; Protocol Last Admin: 04/13/18 05:04 Dose: Not Given Piperacillin Sod/Tazobactam Sod (Zosyn 3.375 In Ns 100ml) 100 mls @ 25 mls/hr IVPB Q8 [facility]; Protocol Stop: 04/30/18 22:16 Last Admin: 04/12/18 21:32 Dose: 25 mls/hr Morphine Sulfate (Morphine) 1 mg IVP Q6H PRN PRN Reason: Pain, severe (8-10) Last Admin: 04/13/18 02:40 Dose: 1 mg Ondansetron HCl (Zofran Inj) 4 mg IVP Q6H PRN PRN Reason: Nausea/Vomiting Last Admin: 03/28/18 14:06 Dose: 4 mg Oxycodone HCl (Oxycodone Immediate Release Tab) 15 mg PO Q12 [facility] Last Admin: 04/12/18 21:04 Dose: 15 mg Pantoprazole Sodium (Protonix Ec Tab) 40 mg PO 0600 [facility] Last Admin: 04/13/18 05:18 Dose: 40 mg - Labs Labs: 04/13/18 06:10 04/13/18 06:10 PT 14.2 SECONDS (9.4-12.5) H 03/28/18 06:30 INR 1.23 03/28/18 06:30 APTT 26.1 Seconds (25.1-36.5) 03/28/18 06:30 Attending/Attestation - Attestation I have personally seen and examined this patient.: Yes I have fully participated in the care of the patient.: Yes I have reviewed all pertinent clinical information, including history, physical exam and plan: Yes Notes (Text): Patient seen and examined by me with resident at 11:10AM on 04/12/18. Case including HPI, physical exam, and assessment and plan discussed with resident. Agree with above with following additions/corrections. Patient is a 47-year-old male with past medical history significant for polysubstance abuse, sciatica, hepatitis C, left hip septic joint status post washout that presented to the emergency room with left hip pain. Patient states he is feeling ok. Still with left hip pain. Patient states that he has been able to walk with a walker. Patient denies abdominal pain. No nausea or vomiting. No chest pain or shortness of breath. No headaches or dizziness. No lightheadedness. No change in vision. No dysuria. No fevers or chills. Physical exam: General: Awake and alert, lying in bed in no acute distress. HEENT: Normocephalic, atraumatic, Extraocular muscles intact, pupils equal and reactive, no scleral icterus. Oropharynx is pink and moist. No pharyngeal erythema or exudate appreciated. Neck is supple. Cardiovascular: Normal rhythm. Normal S1 and S2. No murmus, rubs, or gallops appreciated. Pulmonary: Normal respiratory effort. No rhonchi, rales, or wheezing appreciated. Gastrointestinal: Soft. Nondistended No tenderness. Drain on right with purulent discharge. Positive bowel sounds all 4 quadrants. No guarding. Musculoskeletal: Moves all extremities. No calf tenderness. Bilateral lower extremity pittng edema. Positive left hip tenderness. Central nervous system: AAO x3, CN2-12 grossly intact. Dermatologic: Skin warm and dry. Assessment and plan: Patient is a 47-year-old male with past medical history significant for polysubstance abuse, sciatica, hepatitis C, left hip septic joint status post washout that presented to the emergency room with left hip pain. 1. Liver abscess. Continue Zosyn. Intermittent leukocytosis. Afebrile. S/P percutaneous perihepatic drain change and aspiration of 1000ml of thick purulent green-white fluid 04/06/18. Culture growing E.coli and Streptococcus Sanguis. ID following, recommendations appreciated. CT abd/pelvis 04/07/18 per radiologist showed near complete resolution of fluid within the abscess cavity at the right lobe of liver with small loculated separate components diminished in the size anterior to the medical left lobe liver and inferior to the right love liver; the right sided loculated collection is less decompressed than the anterior component; drainage catheter remains in good apparent position in the main segment of the abscess collection; cachexia and anasarca. CT abd/pelvis 04/01/18 per radiologist showed no significant change in the size of subcapsular abscess in the right lobe of the liver, a pigtail catheter is seen in place, there is a fluid level, the largest portion of the collection measures 14 x 8cm, there is a smaller loculation more anterior and inferior measuring 3.[address] abdomen and [id number]/18 per radiologist showed large 20 x 9.3 cm subcapsular hepatic abscess, a few tiny foci of air in the right upper quadrant which may be intraperitoneal, left groin 4.1 x 2.7 cm abscess, chronic o steomyelitis and septic arthritis of the left hip. 2. Left hip chronic osteomyelitis, septic arthritis, left groin abscess. Continue Zosyn. CT of left hip per radiologist showed erosive changes in the left femoral head and acetabulum consistent with septic arthritis, findings unchanged. Continue with pain management. 3. Diarrhea. Resolved. C-diff negative 4. Bilateral lower extremity edema. No DVT seen on venous doppler of bilateral lower extremities. 5. Thrombocytosis. Likely reactive. Stable. Continue to monitor 6. Anemia. H&H stable. Continue to monitor CBC 7. Medication noncompliance. Patient was noncompliant with medications and follow up at last discharge, patient counseled at length on importance of medication compliance. 8. Hypokalemia. Resolved. Continue to monitor 9. Hepatitis C. Patient to follow up outpatient for treatment. Will be referred to [facility] on discharge. 10. IVDA. Patient counseled at length on cessation. 11. GI/DVT prophylaxis. Protonix/heparin Case was discussed in detail with patient regarding current diagnosis and treatment plan. All questions answered.
--- NOTE | 2018-04-12 16:31 | CP.PCM.PN ---
Subjective - Date & Time of Evaluation Date of Evaluation: 04/12/18 Time of Evaluation: 09:15 - Subjective Subjective: Still having left hip pain and RUQ pain but a little better, no fevers. Objective - Vital Signs/Intake and Output Vital Signs (last 24 hours): Temp Pulse Resp BP Pulse Ox 98.5 F 98 H 18 105/71 99 04/11/18 06:00 04/11/18 06:00 04/11/18 06:00 04/11/18 06:00 04/11/18 06:00 Intake and Output: 04/11/18 04/11/18 06:59 18:59 Output Total 420 Balance -420 - Medications Medications: Current Medications Acetaminophen (Tylenol 325mg Tab) 650 mg PO Q6H PRN PRN Reason: Fever >100.4 F Last Admin: 04/06/18 06:36 Dose: 650 mg Benzocaine/Menthol (Cepacol Sore Throat) 1 nelson MT Q2H PRN PRN Reason: Sore Throat Last Admin: 03/31/18 03:20 Dose: 1 nelson Heparin Sodium (Porcine) (Heparin) 5,000 units SC Q8 [facility]; Protocol Last Admin: 04/11/18 05:07 Dose: 5,000 units Piperacillin Sod/Tazobactam Sod (Zosyn 3.375 In Ns 100ml) 100 mls @ 25 mls/hr IVPB Q8 [facility]; Protocol Stop: 04/30/18 22:16 Last Admin: 04/11/18 05:09 Dose: 25 mls/hr Morphine Sulfate (Morphine) 1 mg IVP Q6H PRN PRN Reason: Pain, severe (8-10) Last Admin: 04/11/18 11:11 Dose: 1 mg Ondansetron HCl (Zofran Inj) 4 mg IVP Q6H PRN PRN Reason: Nausea/Vomiting Last Admin: 03/28/18 14:06 Dose: 4 mg Oxycodone HCl (Oxycodone Immediate Release Tab) 15 mg PO Q12 [facility] Last Admin: 04/11/18 09:15 Dose: 15 mg Pantoprazole Sodium (Protonix Ec Tab) 40 mg PO 0600 [facility] Last Admin: 04/11/18 05:08 Dose: 40 mg - Labs Labs: 04/11/18 06:30 04/11/18 06:30 PT 14.2 SECONDS (9.4-12.5) H 03/28/18 06:30 INR 1.23 03/28/18 06:30 APTT 26.1 Seconds (25.1-36.5) 03/28/18 06:30 - Constitutional Appears: Chronically Ill - Head Exam Head Exam: NORMAL INSPECTION - ENT Exam ENT Exam: Mucous Membranes Moist - Neck Exam Neck Exam: absent: Meningismus - Respiratory Exam Respiratory Exam: Decreased Breath Sounds - Cardiovascular Exam Cardiovascular Exam: +S1, +S2 - GI/Abdominal Exam GI & Abdominal Exam: Soft. absent: Tenderness Assessment and Plan - Assessment and Plan (Free Text) Plan: Assessment liver abscess and left groin abscess S/P CT-guided drainage, growing E. coli and Strep sanguis - repeat CT A/P is showing decreased size of abscess chronic osteomyelitis and septic arthritis of left hip history of sepsis due to Staph aureus and gram negative bacilli bacteremia with right hand and wrist skin and skin structure infection dyslipidemia hepatitis C infection history of IV drug use chronic alcohol abuse Plan continue Zosyn; blood cx are negative will recommend re-evaluation of Ortho regarding the left hip - new CT hip from yesterday is showing the chronic osteomyelitis and septic arthritis as unchanged - on initial presentation, Ortho saw patient and recommended IV antibiotics since the abscess in the groin was apparently too near the neurovascular bundle making surgery difficult and dangerous will monitor clinically
[2018-04-13] MEDS: Morphine 2 mg/ml ISec IVP PRN ×3 (02:40→17:40)
[2018-04-13] MEDS: Pantoprazole 40 mg EC Tab PO SCH (05:18)
[2018-04-13 06:35] LABS: HEMOGLOBIN 8.1 g/dL (14.0-18.0); MEAN CELL VOLUME 76.1 fl (80.0-105.0); MEAN CORPUSCULAR HEMOGLOBIN 23.3 pg (25.0-35.0); MEAN CORPUSCULAR HGB CONC 30.6 g/dl (31.0-37.0); MEAN PLATELET VOLUME 8.1 fl (7.0-11.0); RBC 3.48 10^6/uL (3.5-6.1); RED CELL DISTRIBUTION WIDTH 21.6 % (11.5-14.5); WHITE BLOOD COUNT 13.6 10^3/uL (4.5-11.0)
[2018-04-13 07:03] LABS: ALB/GLOB RATIO 0.7 (1.1-1.8); ALBUMIN 3.4 g/dL (3.0-4.8); ALT/SGPT 34 U/L (7-56); AST/SGOT 46 U/L (17-59); BLOOD UREA NITROGEN 19 mg/dL (7-21); CALCIUM 9.6 mg/dL (8.4-10.5); GFR NON-AFRICAN AMERICAN > 60
[2018-04-13] MEDS: oxyCODONE 15 mg Immediate Release Tab PO SCH ×2 (10:10→21:34)
[2018-04-13] MEDS: Piperacillin/Tazobact 3.375 gm 100 ML IVPB SCH ×2 (13:39→21:35)
--- NOTE | 2018-04-13 13:50 | CP.PCM.PN ---
<Sean Tellez - Last Filed: 04/13/18 13:56> Subjective - Date & Time of Evaluation Date of Evaluation: 04/13/18 Time of Evaluation: 06:00 - Subjective Subjective: Pt seen and examined at bedside this morning. Pt has no new complaints at this time. Objective - Vital Signs/Intake and Output Vital Signs (last 24 hours): Temp Pulse Resp BP Pulse Ox 98.5 F 102 H 18 112/73 98 04/12/18 22:53 04/12/18 22:53 04/12/18 22:53 04/12/18 22:53 04/12/18 22:53 Intake and Output: 04/13/18 04/13/18 06:59 18:59 Intake Total 2050 Output Total 1640 100 Balance 410 -100 - Medications Medications: Current Medications Acetaminophen (Tylenol 325mg Tab) 650 mg PO Q6H PRN PRN Reason: Fever >100.4 F Last Admin: 04/06/18 06:36 Dose: 650 mg Benzocaine/Menthol (Cepacol Sore Throat) 1 nelson MT Q2H PRN PRN Reason: Sore Throat Last Admin: 03/31/18 03:20 Dose: 1 nelson Heparin Sodium (Porcine) (Heparin) 5,000 units SC Q8 [facility]; Protocol Last Admin: 04/13/18 13:34 Dose: Not Given Piperacillin Sod/Tazobactam Sod (Zosyn 3.375 In Ns 100ml) 100 mls @ 25 mls/hr IVPB Q8 [facility]; Protocol Stop: 04/30/18 22:16 Last Admin: 04/13/18 13:39 Dose: 25 mls/hr Morphine Sulfate (Morphine) 1 mg IVP Q6H PRN PRN Reason: Pain, severe (8-10) Last Admin: 04/13/18 12:19 Dose: 1 mg Ondansetron HCl (Zofran Inj) 4 mg IVP Q6H PRN PRN Reason: Nausea/Vomiting Last Admin: 03/28/18 14:06 Dose: 4 mg Oxycodone HCl (Oxycodone Immediate Release Tab) 15 mg PO Q12 [facility] Last Admin: 04/13/18 10:10 Dose: 15 mg Pantoprazole Sodium (Protonix Ec Tab) 40 mg PO 0600 [facility] Last Admin: 04/13/18 05:18 Dose: 40 mg - Labs Labs: 04/13/18 06:10 04/13/18 06:10 PT 14.2 SECONDS (9.4-12.5) H 03/28/18 06:30 INR 1.23 03/28/18 06:30 APTT 26.1 Seconds (25.1-36.5) 03/28/18 06:30 - Constitutional Appears: No Acute Distress - Head Exam Head Exam: ATRAUMATIC, NORMOCEPHALIC - Eye Exam Eye Exam: EOMI - Respiratory Exam Respiratory Exam: Clear to Ausculation Bilateral, NORMAL BREATHING PATTERN. absent: Respiratory Distress - Cardiovascular Exam Cardiovascular Exam: +S1, +S2. absent: Diastolic murmur, Murmur - GI/Abdominal Exam GI & Abdominal Exam: Soft, Normal Bowel Sounds - Extremities Exam Extremities Exam: Full ROM. absent: Calf Tenderness, Pedal Edema - Neurological Exam Neurological Exam: Alert, Awake, Oriented x3 - Psychiatric Exam Psychiatric exam: Normal Affect, Normal Mood - Skin Skin Exam: Dry, Intact, Normal Color, Warm Assessment and Plan - Assessment and Plan (Free Text) Assessment: Pt is a 47yo male with a PMH of poly substance abuse, hep C, sciatica, left hip septic joint, and liver abscess who presented to the ED complaining of pain in his left hip who was found to have a liver abscess. Plan: Liver abscess/ L Hip Abscess/ Left Groin Abscess - Oxycodone 15 xr PO BID, Morphine 1mg IVP Q6 PRN for breakthrough pain - IR drained liver abscess on 03/28/18, cultures growing E. coli, Strep Sangius, drain has been reevaluated by IR and is working well - CTAP 04/07/18: near complete resolution of fluid within the abscess cavity at the right lobe liver with small loculated septate components diminished in size anterior to the medial left lobe liver inferior to the right lobe liver. The right sided locualted collection is less decompressed than the anterior component. Drainage catherter remains in good apparent position in the main segment of the abscess collection. - CT L Hip and pelvis w contrast, shows erosive changes in the left femoral head/ acetabulum indicative of septic arthritis - Continue zosyn (day 16) - Ortho consulted, Dr. Day - General surgery consulted, Dr. Hsu - ID consulted, Dr. Will, requested that Ortho reevaluate the pt because of his long course of antibiotics Thrombocytosis - Plts 581, improving Hep C - untreated, encouraged complete cessation of IVDA - Recommend treatment as out patient Hypokalemia, resolved - K 4.2, Replete PRN Ppx - Protonix - SCDs, Heparin - Incentive spirometry Pt seen, examined, assessment and plan discussed with Dr Cassie Tellez PGY1, Internal Medicine Resident <Cassie Alba R - Last Filed: 04/14/18 12:40> Objective - Vital Signs/Intake and Output Vital Signs (last 24 hours): Temp Pulse Resp BP Pulse Ox 99.2 F 95 H 20 105/67 98 04/14/18 06:00 04/14/18 06:00 04/14/18 06:00 04/14/18 06:00 04/14/18 06:00 - Medications Medications: Current Medications Acetaminophen (Tylenol 325mg Tab) 650 mg PO Q6H PRN PRN Reason: Fever >100.4 F Last Admin: 04/14/18 08:38 Dose: 650 mg Heparin Sodium (Porcine) (Heparin) 5,000 units SC Q8 [facility]; Protocol Last Admin: 04/14/18 06:08 Dose: Not Given Piperacillin Sod/Tazobactam Sod (Zosyn 3.375 In Ns 100ml) 100 mls @ 25 mls/hr IVPB Q8 [facility]; Protocol Stop: 04/30/18 22:16 Last Admin: 04/14/18 06:08 Dose: 25 mls/hr Morphine Sulfate (Morphine) 1 mg IVP Q6H PRN PRN Reason: Pain, severe (8-10) Last Admin: 04/14/18 04:17 Dose: 1 mg Ondansetron HCl (Zofran Inj) 4 mg IVP Q6H PRN PRN Reason: Nausea/Vomiting Last Admin: 03/28/18 14:06 Dose: 4 mg Oxycodone HCl (Oxycodone Immediate Release Tab) 15 mg PO Q12 [facility] Last Admin: 04/14/18 10:47 Dose: 15 mg - Labs Labs: 04/13/18 06:10 04/13/18 06:10 PT 14.2 SECONDS (9.4-12.5) H 03/28/18 06:30 INR 1.23 03/28/18 06:30 APTT 26.1 Seconds (25.1-36.5) 03/28/18 06:30 Attending/Attestation - Attestation I have personally seen and examined this patient.: Yes I have fully participated in the care of the patient.: Yes I have reviewed all pertinent clinical information, including history, physical exam and plan: Yes Notes (Text): Patient seen and examined by me with resident at 11:15AM on 04/13/18. Case including HPI, physical exam, and assessment and plan discussed with resident. Agree with above with following additions/corrections. Patient is a 47-year-old male with past medical history significant for polysubstance abuse, sciatica, hepatitis C, left hip septic joint status post washout that presented to the emergency room with left hip pain. Patient states feels ok. States his nurse is having a little bit of trouble with getting and IV line in. Complains of left hip pain. No abdominal pain. No nausea or vomiting. No chest pain or shortness of breath. No headaches or dizziness. No lightheadedness. No change in vision. No dysuria. No fevers or chills. Physical exam: General: Awake and alert, lying in bed in no acute distress. HEENT: Normocephalic, atraumatic, Extraocular muscles intact, pupils equal and reactive, no scleral icterus. Oropharynx is pink and moist. No pharyngeal erythema or exudate appreciated. Neck is supple. Cardiovascular: Normal rhythm. Normal S1 and S2. No murmus, rubs, or gallops appreciated. Pulmonary: Normal respiratory effort. No rhonchi, rales, or wheezing appreciated. Gastrointestinal: Soft. Nondistended No tenderness. Drain on right with purulent discharge. Positive bowel sounds all 4 quadrants. No guarding. Musculoskeletal: Moves all extremities. No calf tenderness. Bilateral lower extremity pittng edema. Positive left hip tenderness. Central nervous system: AAO x3, CN2-12 grossly intact. Dermatologic: Skin warm and dry. Assessment and plan: Patient is a 47-year-old male with past medical history significant for polysubstance abuse, sciatica, hepatitis C, left hip septic joint status post washout that presented to the emergency room with left hip pain. 1. Liver abscess. Continue Zosyn. Intermittent leukocytosis. Afebrile. S/P percutaneous perihepatic drain change and aspiration of 1000ml of thick purulen t green-white fluid 04/06/18. Culture growing E.coli. ID following, recommendations appreciated. CT abd/pelvis 04/07/18 per radiologist showed near complete resolution of fluid within the abscess cavity at the right lobe of liver with small loculated separate components diminished in the size anterior to the medical left lobe liver and inferior to the right love liver; the right sided loculated collection is less decompressed than the anterior component; drainage catheter remains in good apparent position in the main segment of the abscess collection; cachexia and anasarca. CT abd/pelvis 04/01/18 per radiologist showed no significant change in the size of subcapsular abscess in the right lobe of the liver, a pigtail catheter is seen in place, there is a fluid level, the largest portion of the collection measures 14 x 8cm, there is a smaller loculation more anterior and inferior measuring 3.[address] abdomen and [id number]/18 per radiologist showed large 20 x 9.3 cm subcapsular hepatic abscess, a few tiny foci of air in the right upper quadrant which may be intraperitoneal, left groin 4.1 x 2.7 cm abscess, chronic osteomyelitis and septic arthritis of the left hip. 2. Left hip chronic osteomyelitis, septic arthritis, left groin abscess. Continue Zosyn. CT of left hip per radiologist showed erosive changes in the left femoral head and acetabulum consistent with septic arthritis, findings unchanged. Orthopedics reconsulted, pending recommendations. Continue with pain management. 3. Diarrhea. Resolved. C-diff negative 4. Bilateral lower extremity edema. No DVT seen on venous doppler of bilateral lower extremities. 5. Thrombocytosis. Likely reactive. Stable. Continue to monitor 6. Anemia. H&H stable. Continue to monitor CBC 7. Medication noncompliance. Patient was noncompliant with medications and follow up at last discharge, patient counseled at length on importance of medication compliance. 8. Hypokalemia. Resolved. Continue to monitor 9. Hepatitis C. Patient to follow up outpatient for treatment. Will be referred to [facility] on discharge. 10. IVDA. Patient counseled at length on cessation. 11. GI/DVT prophylaxis. Protonix/heparin Case was discussed in detail with patient regarding current diagnosis and treatment plan. All questions answered.
--- NOTE | 2018-04-13 19:13 | CP.PCM.PN ---
Subjective - Date & Time of Evaluation Date of Evaluation: 04/13/18 Time of Evaluation: 08:35 - Subjective Subjective: Still with left hip pain, RUQ pain is a little better, explained to patient that looks like he has chronic osteomyelitis of the left hip joint and he understands. Objective - Vital Signs/Intake and Output Vital Signs (last 24 hours): Temp Pulse Resp BP Pulse Ox 98.6 F 113 H 20 112/75 97 04/12/18 14:00 04/12/18 14:00 04/12/18 14:00 04/12/18 14:00 04/12/18 14:00 Intake and Output: 04/12/18 04/12/18 06:59 18:59 Intake Total 300 Balance 300 - Medications Medications: Current Medications Acetaminophen (Tylenol 325mg Tab) 650 mg PO Q6H PRN PRN Reason: Fever >100.4 F Last Admin: 04/06/18 06:36 Dose: 650 mg Benzocaine/Menthol (Cepacol Sore Throat) 1 nelson MT Q2H PRN PRN Reason: Sore Throat Last Admin: 03/31/18 03:20 Dose: 1 nelson Heparin Sodium (Porcine) (Heparin) 5,000 units SC Q8 [facility]; Protocol Last Admin: 04/12/18 13:20 Dose: Not Given Piperacillin Sod/Tazobactam Sod (Zosyn 3.375 In Ns 100ml) 100 mls @ 25 mls/hr IVPB Q8 [facility]; Protocol Stop: 04/30/18 22:16 Last Admin: 04/12/18 13:17 Dose: 25 mls/hr Morphine Sulfate (Morphine) 1 mg IVP Q6H PRN PRN Reason: Pain, severe (8-10) Last Admin: 04/12/18 13:17 Dose: 1 mg Ondansetron HCl (Zofran Inj) 4 mg IVP Q6H PRN PRN Reason: Nausea/Vomiting Last Admin: 03/28/18 14:06 Dose: 4 mg Oxycodone HCl (Oxycodone Immediate Release Tab) 15 mg PO Q12 [facility] Last Admin: 04/12/18 09:17 Dose: 15 mg Pantoprazole Sodium (Protonix Ec Tab) 40 mg PO 0600 [facility] Last Admin: 04/12/18 05:00 Dose: 40 mg - Labs Labs: 04/11/18 06:30 04/11/18 06:30 PT 14.2 SECONDS (9.4-12.5) H 03/28/18 06:30 INR 1.23 03/28/18 06:30 APTT 26.1 Seconds (25.1-36.5) 03/28/18 06:30 - Constitutional Appears: Chronically Ill - Head Exam Head Exam: NORMAL INSPECTION - Neck Exam Neck Exam: absent: Meningismus - Respiratory Exam Respiratory Exam: Decreased Breath Sounds - Cardiovascular Exam Cardiovascular Exam: +S1, +S2 - GI/Abdominal Exam GI & Abdominal Exam: Soft. absent: Tenderness Additional comments: RUQ drain in place Assessment and Plan - Assessment and Plan (Free Text) Plan: Assessment liver abscess and left groin abscess S/P CT-guided drainage, growing E. coli and Strep sanguis - repeat CT A/P is showing decreased size of abscess chronic osteomyelitis and septic arthritis of left hip history of sepsis due to Staph aureus and gram negative bacilli bacteremia with right hand and wrist skin and skin structure infection dyslipidemia hepatitis C infection history of IV drug use chronic alcohol abuse Plan continue Zosyn; blood cx are negative will recommend re-evaluation of Ortho regarding the left hip - new CT hip from 04/11 is showing the chronic osteomyelitis and septic arthritis as unchanged - on initial presentation, Ortho saw patient and recommended IV antibiotics since the abscess in the groin was apparently too near the neurovascular bundle making surgery difficult and dangerous - discussed this with patient and he understands and acknowledges discussed with Dr. Alba - Ortho is being reconsulted will continue to monitor clinically
[2018-04-14] MEDS: Morphine 2 mg/ml ISec IVP PRN ×3 (04:17→20:00)
[2018-04-14] MEDS: Piperacillin/Tazobact 3.375 gm 100 ML IVPB SCH ×3 (06:08→21:53)
[2018-04-14] MEDS: Pantoprazole 40 mg EC Tab PO SCH (06:08)
[2018-04-14] MEDS: oxyCODONE 15 mg Immediate Release Tab PO SCH ×2 (10:47→21:53)
--- NOTE | 2018-04-14 13:17 | CP.PCM.PN ---
<Sean Tellez - Last Filed: 04/14/18 13:31> Subjective - Date & Time of Evaluation Date of Evaluation: 04/14/18 Time of Evaluation: 06:00 - Subjective Subjective: Pt seen and examined. Denies new complaints. Objective - Vital Signs/Intake and Output Vital Signs (last 24 hours): Temp Pulse Resp BP Pulse Ox 99.2 F 95 H 20 105/67 98 04/14/18 06:00 04/14/18 06:00 04/14/18 06:00 04/14/18 06:00 04/14/18 06:00 - Medications Medications: Current Medications Acetaminophen (Tylenol 325mg Tab) 650 mg PO Q6H PRN PRN Reason: Fever >100.4 F Last Admin: 04/14/18 08:38 Dose: 650 mg Heparin Sodium (Porcine) (Heparin) 5,000 units SC Q8 [facility]; Protocol Last Admin: 04/14/18 06:08 Dose: Not Given Piperacillin Sod/Tazobactam Sod (Zosyn 3.375 In Ns 100ml) 100 mls @ 25 mls/hr IVPB Q8 [facility]; Protocol Stop: 04/30/18 22:16 Last Admin: 04/14/18 06:08 Dose: 25 mls/hr Morphine Sulfate (Morphine) 1 mg IVP Q6H PRN PRN Reason: Pain, severe (8-10) Last Admin: 04/14/18 04:17 Dose: 1 mg Ondansetron HCl (Zofran Inj) 4 mg IVP Q6H PRN PRN Reason: Nausea/Vomiting Last Admin: 03/28/18 14:06 Dose: 4 mg Oxycodone HCl (Oxycodone Immediate Release Tab) 15 mg PO Q12 [facility] Last Admin: 04/14/18 10:47 Dose: 15 mg - Labs Labs: 04/13/18 06:10 04/13/18 06:10 PT 14.2 SECONDS (9.4-12.5) H 03/28/18 06:30 INR 1.23 03/28/18 06:30 APTT 26.1 Seconds (25.1-36.5) 03/28/18 06:30 - Constitutional Appears: No Acute Distress - Head Exam Head Exam: ATRAUMATIC, NORMOCEPHALIC - Eye Exam Eye Exam: EOMI - ENT Exam ENT Exam: Mucous Membranes Moist - Neck Exam Neck Exam: Full ROM - Respiratory Exam Respiratory Exam: Clear to Ausculation Bilateral, NORMAL BREATHING PATTERN. absent: Accessory Muscle Use, Respiratory Distress - Cardiovascular Exam Cardiovascular Exam: RRR, +S1, +S2. absent: Diastolic murmur, Murmur - GI/Abdominal Exam GI & Abdominal Exam: Soft, Normal Bowel Sounds Additional comments: drain in place, bandage is clean, dry and intact - Extremities Exam Extremities Exam: Full ROM. absent: Pedal Edema - Neurological Exam Neurological Exam: Alert, Awake, Oriented x3 - Psychiatric Exam Psychiatric exam: Normal Affect, Normal Mood - Skin Skin Exam: Dry, Intact, Warm Assessment and Plan - Assessment and Plan (Free Text) Assessment: Pt is a 47yo male with a PMH of poly-substance abuse, hepatitis C, sciatica, left hip septic joint, and liver abscess who presented to the ED complaining of pain in his left hip who was found to have a liver abscess. Plan: Liver abscess/ L Hip Abscess/ Left Groin Abscess - Continue Oxycodone, and Morphine for pain control - IR drained liver abscess on 03/28/18, E. coli, Strep Sangius - CTAP 04/07/18: near complete resolution of fluid within the abscess cavity at the right lobe liver with small loculated septate components diminished in size anterior to the medial left lobe liver inferior to the right lobe liver. - CT L Hip and pelvis w contrast, shows erosive changes in the left femoral head/ acetabulum indicative of septic arthritis - Continue zosyn (day 17) - Ortho consulted, Dr. Day, requested reevaluation of pt hip - General surgery consulted, Dr. Hsu - ID consulted, Dr. Will, requested that Ortho reevaluate the pt because of his long course of antibiotics Thrombocytosis - Plts 581, improving Hep C - untreated, encouraged complete cessation of IVDA - Recommend treatment as out patient Hypokalemia, resolved - K 4.2, Replete PRN Ppx - Protonix - SCDs, Heparin - Incentive spirometry Pt seen, examined, assessment and plan discussed with Dr Cassie Tellez PGY1, Internal Medicine Resident <Cassie Alba R - Last Filed: 04/16/18 12:30> Objective - Vital Signs/Intake and Output Vital Signs (last 24 hours): Temp Pulse Resp BP Pulse Ox 97.7 F 98 H 16 102/69 97 04/16/18 06:00 04/16/18 06:00 04/16/18 06:00 04/16/18 06:00 04/16/18 06:00 - Medications Medications: Current Medications Acetaminophen (Tylenol 325mg Tab) 650 mg PO Q6H PRN PRN Reason: Fever >100.4 F Last Admin: 04/14/18 08:38 Dose: 650 mg Bacitracin (Bacitracin) 1 gm TOP Q4H PRN PRN Reason: Inflammation Heparin Sodium (Porcine) (Heparin) 5,000 units SC Q8 [facility]; Protocol Last Admin: 04/16/18 06:08 Dose: Not Given Piperacillin Sod/Tazobactam Sod (Zosyn 3.375 In Ns 100ml) 100 mls @ 25 mls/hr IVPB Q8 [facility]; Protocol Stop: 04/30/18 22:16 Last Admin: 04/16/18 06:05 Dose: 25 mls/hr Micafungin Sodium 100 mg/ (Sodium Chloride) 100 mls @ 100 mls/hr IV DAILY [facility]; Protocol Stop: 04/21/18 16:01 Last Admin: 04/16/18 10:17 Dose: 100 mls/hr Morphine Sulfate (Morphine) 1 mg IVP Q6H PRN PRN Reason: Pain, severe (8-10) Last Admin: 04/16/18 10:17 Dose: 1 mg Ondansetron HCl (Zofran Inj) 4 mg IVP Q6H PRN PRN Reason: Nausea/Vomiting Last Admin: 03/28/18 14:06 Dose: 4 mg Oxycodone HCl (Oxycodone Immediate Release Tab) 15 mg PO Q12 [facility] Last Admin: 04/15/18 21:44 Dose: 15 mg - Labs Labs: 04/15/18 06:20 04/15/18 06:20 PT 14.2 SECONDS (9.4-12.5) H 03/28/18 06:30 INR 1.23 03/28/18 06:30 APTT 26.1 Seconds (25.1-36.5) 03/28/18 06:30 Attending/Attestation - Attestation I have personally seen and examined this patient.: Yes I have fully participated in the care of the patient.: Yes I have reviewed all pertinent clinical information, including history, physical exam and plan: Yes Notes (Text): Patient seen and examined by me with resident at 11:30AM on 04/14/18. Case including HPI, physical exam, and assessment and plan discussed with resident. Agree with above with following additions/corrections. Patient is a 47-year-old male with past medical history significant for polysubstance abuse, sciatica, hepatitis C, left hip septic joint status post washout that presented to the emergency room with left hip pain. Patient states he is having pain in his left hip pain other nicolas feels ok. No abdominal pain. No nausea or vomiting. No chest pain or shortness of breath. No headaches or dizziness. No lightheadedness. No change in vision. No dysuria. No fevers or chills. Physical exam: General: Awake and alert, lying in bed in no acute distress. HEENT: Normocephalic, atraumatic, Extraocular muscles intact, pupils equal and reactive, no scleral icterus. Oropharynx is pink and moist. No pharyngeal erythema or exudate appreciated. Neck is supple. Cardiovascular: Normal rhythm. Normal S1 and S2. No murmus, rubs, or gallops appreciated. Pulmonary: Normal respiratory effort. No rhonchi, rales, or wheezing appreciat ed. Gastrointestinal: Soft. Nondistended No tenderness. Drain on right with purulent discharge. Positive bowel sounds all 4 quadrants. No guarding. Musculoskeletal: Moves all extremities. No calf tenderness. Bilateral lower extremity pittng edema. Positive left hip tenderness. Central nervous system: AAO x3, CN2-12 grossly intact. Dermatologic: Skin warm and dry. Assessment and plan: Patient is a 47-year-old male with past medical history significant for polysubstance abuse, sciatica, hepatitis C, left hip septic joint status post washout that presented to the emergency room with left hip pain. 1. Liver abscess. Continue Zosyn. Started on Micafungin for positive santosh ciferrii in wound cultures. Culture also with E.coli and Streptococcus Sanguis. ID following, recommendations appreciated. Intermittent leukocytosis. Afebrile. S/P percutaneous perihepatic drain change and aspiration of 1000ml of thick purulent green-white fluid 04/06/18. CT abd/pelvis 04/07/18 per radiologist showed near complete resolution of fluid within the abscess cavity at the right lobe of liver with small loculated separate components diminished in the size anterior to the medical left lobe liver and inferior to the right love liver; the right sided loculated collection is less decompressed than the anterior component; drainage catheter remains in good apparent position in the main segment of the a bscess collection; cachexia and anasarca. CT abd/pelvis 04/01/18 per radiologist showed no significant change in the size of subcapsular abscess in the right lobe of the liver, a pigtail catheter is seen in place, there is a fluid level, the largest portion of the collection measures 14 x 8cm, there is a smaller loculation more anterior and inferior measuring 3.[address] abdomen and dcpool01/28/18 per radiologist showed large 20 x 9.3 cm subcapsular hepatic abscess, a few tiny foci of air in the right upper quadrant which may be intraperitoneal, left groin 4.1 x 2.7 cm abscess, chronic ost eomyelitis and septic arthritis of the left hip. 2. Left hip chronic osteomyelitis, septic arthritis, left groin abscess. Continue Zosyn. CT of left hip per radiologist showed erosive changes in the left femoral head and acetabulum consistent with septic arthritis, findings unchanged. Orthopedics reconsulted, pending recommendations, calls placed to service, pending call back. Continue with pain management. 3. Diarrhea. Resolved. C-diff negative 4. Bilateral lower extremity edema. No DVT seen on venous doppler of bilateral lower extremities. 5. Thrombocytosis. Likely reactive. Downtrending. Continue to monitor 6. Anemia. H&H stable. Continue to monitor CBC 7. Medication noncompliance. Patient was noncompliant with medications and follow up at last discharge, patient counseled at length on importance of medication compliance. 8. Hypokalemia. Resolved. Continue to monitor 9. Hepatitis C. Patient to follow up outpatient for treatment. Will be referred to [facility] on discharge. 10. IVDA. Patient counseled at length on cessation. 11. GI/DVT prophylaxis. Protonix/heparin Case was discussed in detail with patient regarding current diagnosis and treatment plan. All questions answered.
--- NOTE | 2018-04-14 15:57 | CP.PCM.PN ---
Subjective - Date & Time of Evaluation Date of Evaluation: 04/14/18 Time of Evaluation: 09:20 - Subjective Subjective: Comfortable in bed, still having left hip pain, unchanged, improving abdominal pain, no fevers. Objective - Vital Signs/Intake and Output Vital Signs (last 24 hours): Temp Pulse Resp BP Pulse Ox 98.5 F 114 H 20 113/81 98 04/13/18 14:00 04/13/18 14:00 04/13/18 14:00 04/13/18 14:00 04/13/18 14:00 Intake and Output: 04/13/18 04/14/18 18:59 06:59 Output Total 100 Balance -100 - Medications Medications: Current Medications Acetaminophen (Tylenol 325mg Tab) 650 mg PO Q6H PRN PRN Reason: Fever >100.4 F Last Admin: 04/06/18 06:36 Dose: 650 mg Benzocaine/Menthol (Cepacol Sore Throat) 1 nelson MT Q2H PRN PRN Reason: Sore Throat Last Admin: 03/31/18 03:20 Dose: 1 nelson Heparin Sodium (Porcine) (Heparin) 5,000 units SC Q8 [facility]; Protocol Last Admin: 04/13/18 13:34 Dose: Not Given Piperacillin Sod/Tazobactam Sod (Zosyn 3.375 In Ns 100ml) 100 mls @ 25 mls/hr IVPB Q8 [facility]; Protocol Stop: 04/30/18 22:16 Last Admin: 04/13/18 13:39 Dose: 25 mls/hr Morphine Sulfate (Morphine) 1 mg IVP Q6H PRN PRN Reason: Pain, severe (8-10) Last Admin: 04/13/18 17:40 Dose: 1 mg Ondansetron HCl (Zofran Inj) 4 mg IVP Q6H PRN PRN Reason: Nausea/Vomiting Last Admin: 03/28/18 14:06 Dose: 4 mg Oxycodone HCl (Oxycodone Immediate Release Tab) 15 mg PO Q12 [facility] Last Admin: 04/13/18 10:10 Dose: 15 mg Pantoprazole Sodium (Protonix Ec Tab) 40 mg PO 0600 [facility] Last Admin: 04/13/18 05:18 Dose: 40 mg - Labs Labs: 04/13/18 06:10 04/13/18 06:10 PT 14.2 SECONDS (9.4-12.5) H 03/28/18 06:30 INR 1.23 03/28/18 06:30 APTT 26.1 Seconds (25.1-36.5) 03/28/18 06:30 - Constitutional Appears: Chronically Ill - Head Exam Head Exam: NORMAL INSPECTION - Respiratory Exam Respiratory Exam: Decreased Breath Sounds - Cardiovascular Exam Cardiovascular Exam: +S1, +S2 - GI/Abdominal Exam GI & Abdominal Exam: Soft. absent: Tenderness Assessment and Plan - Assessment and Plan (Free Text) Plan: Assessment liver abscess and left groin abscess S/P CT-guided drainage, growing E. coli and Strep sanguis, now also Aline ciferii - repeat CT A/P is showing decreased si ze of abscess chronic osteomyelitis and septic arthritis of left hip history of sepsis due to Staph aureus and gram negative bacilli bacteremia with right hand and wrist skin and skin structure infection dyslipidemia hepatitis C infection history of IV drug use chronic alcohol abuse Plan continue Zosyn; blood cx are negative; will also add Mycamine pending sensitivities of the Aline in the abscess will recommend re-evaluation of Ortho regarding the left hip - new CT hip from 04/11 is showing the chronic osteomyelitis and septic arthritis as unchanged - on initial presentation, Ortho saw patient and recommended IV antibiotics since the abscess in the groin was apparently too near the neurovascular bundle making surgery difficult and dangerous - discussed this with patient and he understands and acknowledges discussed with Dr. Alba - Ortho is being reconsulted will continue to monitor clinically
[2018-04-14] MEDS: Micafungin 100 MG in Sodium Chloride 0.9% 100 ML IV SCH (17:43)
[2018-04-15] MEDS: Morphine 2 mg/ml ISec IVP PRN ×3 (02:15→15:58)
[2018-04-15] MEDS: Piperacillin/Tazobact 3.375 gm 100 ML IVPB SCH ×3 (06:19→21:44)
[2018-04-15 06:52] LABS: HEMOGLOBIN 8.4 g/dL (14.0-18.0); MEAN CELL VOLUME 77.2 fl (80.0-105.0); MEAN CORPUSCULAR HEMOGLOBIN 23.4 pg (25.0-35.0); MEAN CORPUSCULAR HGB CONC 30.3 g/dl (31.0-37.0); MEAN PLATELET VOLUME 8.1 fl (7.0-11.0); RBC 3.59 10^6/uL (3.5-6.1); RED CELL DISTRIBUTION WIDTH 22.9 % (11.5-14.5); WHITE BLOOD COUNT 12.6 10^3/uL (4.5-11.0)
[2018-04-15 07:48] LABS: ALB/GLOB RATIO 0.7 (1.1-1.8); ALBUMIN 3.5 g/dL (3.0-4.8); ALT/SGPT 39 U/L (7-56); AST/SGOT 65 U/L (17-59); BLOOD UREA NITROGEN 23 mg/dL (7-21); CALCIUM 9.5 mg/dL (8.4-10.5); GFR NON-AFRICAN AMERICAN > 60
[2018-04-15] MEDS: Micafungin 100 MG in Sodium Chloride 0.9% 100 ML IV SCH (11:14)
[2018-04-15] MEDS: oxyCODONE 15 mg Immediate Release Tab PO SCH ×2 (11:19→21:44)
--- NOTE | 2018-04-15 11:50 | CP.PCM.PN ---
<Sean Tellez - Last Filed: 04/15/18 11:56> Subjective - Date & Time of Evaluation Date of Evaluation: 04/15/18 Time of Evaluation: 11:47 - Subjective Subjective: Pt seen and examined this morning at bedside. No new complaints at this time. Objective - Vital Signs/Intake and Output Vital Signs (last 24 hours): Temp Pulse Resp BP Pulse Ox 99 F 93 H 18 109/57 L 99 04/15/18 06:00 04/15/18 06:00 04/15/18 06:00 04/15/18 06:00 04/15/18 06:00 - Medications Medications: Current Medications Acetaminophen (Tylenol 325mg Tab) 650 mg PO Q6H PRN PRN Reason: Fever >100.4 F Last Admin: 04/14/18 08:38 Dose: 650 mg Heparin Sodium (Porcine) (Heparin) 5,000 units SC Q8 KIMBERLEE; Protocol Last Admin: 04/15/18 06:23 Dose: Not Given Piperacillin Sod/Tazobactam Sod (Zosyn 3.375 In Ns 100ml) 100 mls @ 25 mls/hr IVPB Q8 KIMBERLEE; Protocol Stop: 04/30/18 22:16 Last Admin: 04/15/18 06:19 Dose: 25 mls/hr Micafungin Sodium 100 mg/ (Sodium Chloride) 100 mls @ 100 mls/hr IV DAILY KIMBERLEE; Protocol Stop: 04/21/18 16:01 Last Admin: 04/15/18 11:14 Dose: 100 mls/hr Morphine Sulfate (Morphine) 1 mg IVP Q6H PRN PRN Reason: Pain, severe (8-10) Last Admin: 04/15/18 09:19 Dose: 1 mg Ondansetron HCl (Zofran Inj) 4 mg IVP Q6H PRN PRN Reason: Nausea/Vomiting Last Admin: 03/28/18 14:06 Dose: 4 mg Oxycodone HCl (Oxycodone Immediate Release Tab) 15 mg PO Q12 KIMBERLEE Last Admin: 04/15/18 11:19 Dose: 15 mg - Labs Labs: 04/15/18 06:20 04/15/18 06:20 PT 14.2 SECONDS (9.4-12.5) H 03/28/18 06:30 INR 1.23 03/28/18 06:30 APTT 26.1 Seconds (25.1-36.5) 03/28/18 06:30 - Constitutional Appears: No Acute Distress - Head Exam Head Exam: ATRAUMATIC, NORMOCEPHALIC - Eye Exam Eye Exam: EOMI - ENT Exam ENT Exam: Mucous Membranes Moist - Neck Exam Neck Exam: Full ROM - Respiratory Exam Respiratory Exam: Clear to Ausculation Bilateral, NORMAL BREATHING PATTERN. absent: Respiratory Distress - Cardiovascular Exam Cardiovascular Exam: RRR, +S1, +S2. absent: Diastolic murmur, Murmur - GI/Abdominal Exam GI & Abdominal Exam: Soft, Normal Bowel Sounds. absent: Tenderness - Extremities Exam Extremities Exam: Full ROM. absent: Calf Tenderness, Pedal Edema - Neurological Exam Neurological Exam: Alert, Awake, Oriented x3 - Psychiatric Exam Psychiatric exam: Normal Affect, Normal Mood - Skin Skin Exam: Dry, Intact, Warm Assessment and Plan - Assessment and Plan (Free Text) Assessment: Pt is a 47yo male with a PMH of poly-substance abuse, hep C, sciatica, left hip septic joint, and liver abscess who presented to the [facility] ED complaining of pain in his left hip who was found to have a liver abscess. Plan: Liver abscess/ L Hip Abscess/ Left Groin Abscess - Oxycodone, and Morphine for pain control - IR drained liver abscess on 03/28/18, E. coli, Strep Sangius - CTAP 04/07/18: near complete resolution of fluid within the abscess cavity at the right lobe liver with small loculated/septate components diminished in size anterior to the medial left lobe liver inferior to the right lobe liver - CT L Hip and pelvis w contrast, shows erosive changes in the left femoral head/ acetabulum indicative of septic arthritis - 04/15/18 CTAP reordered to evaluate liver abscess - Continue zosyn (day 18) - Perihepatic abscess- Santosh ciferrii, continue micafungin - Ortho consulted, Dr. Day - General surgery consulted, Dr. Hsu - ID consulted, Dr. Will Thrombocytosis - Plts 549, improving Hep C - untreated, encouraged complete cessation of IVDA - Recommend treatment as out patient Hypokalemia, resolved - K 4.3, Replete PRN Ppx - Protonix - SCDs, Heparin - Incentive spirometry Pt seen, examined, assessment and plan discussed with Dr Cassie Tellez PGY1 <Cassie Alba R - Last Filed: 04/16/18 12:36> Objective - Vital Signs/Intake and Output Vital Signs (last 24 hours): Temp Pulse Resp BP Pulse Ox 97.7 F 98 H 16 102/69 97 04/16/18 06:00 04/16/18 06:00 04/16/18 06:00 04/16/18 06:00 04/16/18 06:00 - Medications Medications: Current Medications Acetaminophen (Tylenol 325mg Tab) 650 mg PO Q6H PRN PRN Reason: Fever >100.4 F Last Admin: 04/14/18 08:38 Dose: 650 mg Bacitracin (Bacitracin) 1 gm TOP Q4H PRN PRN Reason: Inflammation Heparin Sodium (Porcine) (Heparin) 5,000 units SC Q8 KIMBERLEE; Protocol Last Admin: 04/16/18 06:08 Dose: Not Given Piperacillin Sod/Tazobactam Sod (Zosyn 3.375 In Ns 100ml) 100 mls @ 25 mls/hr IVPB Q8 KIMBERLEE; Protocol Stop: 04/30/18 22:16 Last Admin: 04/16/18 06:05 Dose: 25 mls/hr Micafungin Sodium 100 mg/ (Sodium Chloride) 100 mls @ 100 mls/hr IV DAILY KIMBERLEE; Protocol Stop: 04/21/18 16:01 Last Admin: 04/16/18 10:17 Dose: 100 mls/hr Morphine Sulfate (Morphine) 1 mg IVP Q6H PRN PRN Reason: Pain, severe (8-10) Last Admin: 04/16/18 10:17 Dose: 1 mg Ondansetron HCl (Zofran Inj) 4 mg IVP Q6H PRN PRN Reason: Nausea/Vomiting Last Admin: 03/28/18 14:06 Dose: 4 mg Oxycodone HCl (Oxycodone Immediate Release Tab) 15 mg PO Q12 KIMBERLEE Last Admin: 04/15/18 21:44 Dose: 15 mg - Labs Labs: 04/15/18 06:20 04/15/18 06:20 PT 14.2 SECONDS (9.4-12.5) H 03/28/18 06:30 INR 1.23 03/28/18 06:30 APTT 26.1 Seconds (25.1-36.5) 03/28/18 06:30 Attending/Attestation - Attestation I have personally seen and examined this patient.: Yes I have fully participated in the care of the patient.: Yes I have reviewed all pertinent clinical information, including history, physical exam and plan: Yes Notes (Text): Patient seen and examined by me with resident at 11:50AM on 04/15/18. Case including HPI, physical exam, and assessment and plan discussed with resident. Agree with above with following additions/corrections. Patient is a 47-year-old male with past medical history significant for polysubstance abuse, sciatica, hepatitis C, left hip septic joint status post washout that presented to the emergency room with left hip pain. Patient continues to complain of left hip pain. Asking for more pain medications. States he had some leakage from his drain today. No abdominal pain. No nausea or vomiting. No chest pain or shortness of breath. No headaches or dizziness. No lightheadedness. No change in vision. No dysuria. No fevers or chills. Physical exam: General: Awake and alert, lying in bed in no acute distress. HEENT: Normocephalic, atraumatic, Extraocular muscles intact, pupils equal and reactive, no scleral icterus. Oropharynx is pink and moist. No pharyngeal erythema or exudate appreciated. Neck is supple. Cardiovascular: Normal rhythm. Normal S1 and S2. No murmus, rubs, or gallops appreciated. Pulmonary: Normal respiratory effort. No rhonchi, rales, or wheezing appreciated. Gastrointestinal: Soft. Nondistended No tenderness. Drain on right with purulent discharge. Positive bowel sounds all 4 quadrants. No guarding. Musculoskeletal: Moves all extremities. No calf tenderness. Bilateral lower extremity pittng edema. Positive left hip tenderness. Central nervous system: AAO x3, CN2-12 grossly intact. Dermatologic: Skin warm and dry. Assessment and plan: Patient is a 47-year-old male with past medical history significant for polysubstance abuse, sciatica, hepatitis C, left hip septic joint status post washout that presented to the emergency room with left hip pain. 1. Liver abscess. Continue Zosyn. Continue Micafungin for positive santosh ciferrii in wound cultures. Culture also with E.coli and Streptococcus Sanguis. ID following, recommendations appreciated. Leukocytosis downtrending. Afebrile. S/P percutaneous perihepatic drain change and aspiration of 1000ml of thick purulent green-white fluid 04/06/18. Drainage from catheter today. Will recheck CT abd/pelvis. CT abd/pelvis 04/07/18 per radiologist showed near complete resolut ion of fluid within the abscess cavity at the right lobe of liver with small loculated separate components diminished in the size anterior to the medical left lobe liver and inferior to the right love liver; the right sided loculated collection is less decompressed than the anterior component; drainage catheter remains in good apparent position in the main segment of the abscess collection; cachexia and anasarca. CT abd/pelvis 04/01/18 per radiologist showed no significant change in the size of subcapsular abscess in the right lobe of the liver, a pigtail catheter is seen in place, there is a fluid level, the largest portion of the collection measures 14 x 8cm, there is a smaller loculation more anterior and inferior measuring 3.[address] abdomen and [id number]/18 per radiologist showed large 20 x 9.3 cm subcapsular hepatic abscess, a few tiny foci of air in the right upper quadrant which may be intraperitoneal, left groin 4.1 x 2.7 cm abscess, chronic osteomyelitis and septic arthritis of the left hip. 2. Left hip chronic osteomyelitis, septic arthritis, left groin abscess. Co ntinue Zosyn. CT of left hip per radiologist showed erosive changes in the left femoral head and acetabulum consistent with septic arthritis, findings unchanged. Orthopedics reconsulted, pending recommendations, calls placed to service, pending call back. Continue with pain management. 3. Diarrhea. Resolved. C-diff negative 4. Bilateral lower extremity edema. No DVT seen on venous doppler of bilateral lower extremities. 5. Thrombocytosis. Likely reactive. Downtrending. Continue to monitor 6. Anemia. H&H stable. Continue to monitor CBC 7. Medication noncompliance. Patient was noncompliant with medications and follow up at last discharge, patient counseled at length on importance of medication compliance. 8. Hypokalemia. Resolved. Continue to monitor 9. Hepatitis C. Patient to follow up outpatient for treatment. Will be referred to [facility] on discharge. 10. IVDA. Patient counseled at length on cessation. 11. GI/DVT prophylaxis. Protonix/heparin Case was discussed in detail with patient regarding current diagnosis and treatment plan. All questions answered.
--- NOTE | 2018-04-15 15:09 | CT ---
Date of service: 04/15/2018 PROCEDURE: CT Abdomen and Pelvis without intravenous contrast HISTORY: evaluate liver abscess COMPARISON: 04/07/2018 TECHNIQUE: Without contrast. Contrast dose: Radiation dose: Total exam DLP = 277.18 mGy-cm. This CT exam was performed using one or more of the following dose reduction techniques: Automated exposure control, adjustment of the mA and/or kV according to patient size, and/or use of iterative reconstruction technique. FINDINGS: LOWER THORAX: Unremarkable. LIVER: A pigtail catheter is again demonstrated along the right side of the liver. There is near complete drainage of the subcapsular fluid collection at the site of the pigtail catheter. The smaller collection seen anteriorly has slightly increased in thickness now measuring 22 x 53 mm previously 12 x 58 mm GALLBLADDER AND BILE DUCTS: Unremarkable. PANCREAS: Unremarkable. No gross lesion or ductal dilatation. SPLEEN: Unremarkable. ADRENALS: Unremarkable. No mass. KIDNEYS AND URETERS: Unremarkable. No hydronephrosis. No solid mass. VASCULATURE: Unremarkable. No aortic aneurysm. No aortic atherosclerotic calcification or mural plaque present. BOWEL: Unremarkable. No obstruction. No gross mural thickening. APPENDIX: Unremarkable. Normal appendix. PERITONEUM: Unremarkable. No free fluid. No free air. LYMPH NODES: Unremarkable. No enlarged lymph nodes. BLADDER: Unremarkable. REPRODUCTIVE: Unremarkable. BONES: Severe erosion of the left femoral head and acetabulum unchanged OTHER FINDINGS: None. IMPRESSION: A pigtail catheter is again demonstrated along the right side of the liver. There is near complete drainage of the subcapsular fluid collection at the site of the pigtail catheter. The smaller collection seen anteriorly has slightly increased in thickness now measuring 22 x 53 mm previously 12 x 58 mm
--- NOTE | 2018-04-15 16:33 | CP.PCM.PN ---
Subjective - Date & Time of Evaluation Date of Evaluation: 04/15/18 Time of Evaluation: 14:40 - Subjective Subjective: Still having left hip pain, abdominal pain is improving, no fevers, no nausea. Objective - Vital Signs/Intake and Output Vital Signs (last 24 hours): Temp Pulse Resp BP Pulse Ox 98.6 F 121 H 20 115/77 100 04/14/18 14:00 04/14/18 14:00 04/14/18 14:00 04/14/18 14:00 04/14/18 14:00 - Medications Medications: Current Medications Acetaminophen (Tylenol 325mg Tab) 650 mg PO Q6H PRN PRN Reason: Fever >100.4 F Last Admin: 04/14/18 08:38 Dose: 650 mg Heparin Sodium (Porcine) (Heparin) 5,000 units SC Q8 KIMBERLEE; Protocol Last Admin: 04/14/18 13:52 Dose: Not Given Piperacillin Sod/Tazobactam Sod (Zosyn 3.375 In Ns 100ml) 100 mls @ 25 mls/hr IVPB Q8 KIMBERLEE; Protocol Stop: 04/30/18 22:16 Last Admin: 04/14/18 13:54 Dose: 25 mls/hr Micafungin Sodium 100 mg/ (Sodium Chloride) 100 mls @ 100 mls/hr IV DAILY KIMBERLEE; Protocol Stop: 04/21/18 16:01 Morphine Sulfate (Morphine) 1 mg IVP Q6H PRN PRN Reason: Pain, severe (8-10) Last Admin: 04/14/18 13:20 Dose: 1 mg Ondansetron HCl (Zofran Inj) 4 mg IVP Q6H PRN PRN Reason: Nausea/Vomiting Last Admin: 03/28/18 14:06 Dose: 4 mg Oxycodone HCl (Oxycodone Immediate Release Tab) 15 mg PO Q12 KIMBERLEE Last Admin: 04/14/18 10:47 Dose: 15 mg - Labs Labs: 04/13/18 06:10 04/13/18 06:10 PT 14.2 SECONDS (9.4-12.5) H 03/28/18 06:30 INR 1.23 03/28/18 06:30 APTT 26.1 Seconds (25.1-36.5) 03/28/18 06:30 - Constitutional Appears: Cachectic, Chronically Ill - Head Exam Head Exam: NORMAL INSPECTION - Respiratory Exam Respiratory Exam: Decreased Breath Sounds - Cardiovascular Exam Cardiovascular Exam: +S1, +S2 - GI/Abdominal Exam GI & Abdominal Exam: Soft. absent: Tenderness Assessment and Plan - Assessment and Plan (Free Text) Plan: Assessment liver abscess and left groin abscess S/P CT-guided drainage, growing E. coli and Strep sanguis, now also Aline ciferii - repeat CT A/P is showing decreased size of abscess chronic osteomyelitis and septic arthritis of left hip history of sepsis due to Staph aureus and gram negative bacilli bacteremia with right hand and wrist skin and skin structure infection dyslipidemia hepatitis C infection history of IV drug use chronic alcohol abuse Plan continue Zosyn; blood cx are negative; continue Mycamine as well pending sensitivities of the Aline in the abscess will recommend re-evaluation of Ortho regarding the left hip - new CT hip from 04/11 is showing the chronic osteomyelitis and septic arthritis as unchanged - on initial presentation, Ortho saw patient and recommended IV antibiotics since the abscess in the groin was apparently too near the neurovascular bundle making surgery difficult and dangerous - discussed this with patient and he understands and acknowledges discussed with Dr. Alba - Ortho is being reconsulted, may need to go to another facility if patient needs surgery for this will continue to monitor clinically
[2018-04-16] MEDS: Morphine 2 mg/ml ISec IVP PRN ×3 (01:44→10:17)
[2018-04-16] MEDS: Piperacillin/Tazobact 3.375 gm 100 ML IVPB SCH ×3 (06:05→22:00)
[2018-04-16] MEDS: Micafungin 100 MG in Sodium Chloride 0.9% 100 ML IV SCH (10:17)
--- NOTE | 2018-04-16 10:34 | CP.PCM.PN ---
<Sean Tellez - Last Filed: 04/16/18 11:00> Subjective - Date & Time of Evaluation Date of Evaluation: 04/16/18 Time of Evaluation: 07:00 - Subjective Subjective: Pt seen and examined. Pt reports sore on his sacrum. Objective - Vital Signs/Intake and Output Vital Signs (last 24 hours): Temp Pulse Resp BP Pulse Ox 97.7 F 98 H 16 102/69 97 04/16/18 06:00 04/16/18 06:00 04/16/18 06:00 04/16/18 06:00 04/16/18 06:00 - Medications Medications: Current Medications Acetaminophen (Tylenol 325mg Tab) 650 mg PO Q6H PRN PRN Reason: Fever >100.4 F Last Admin: 04/14/18 08:38 Dose: 650 mg Heparin Sodium (Porcine) (Heparin) 5,000 units SC Q8 KIMBERLEE; Protocol Last Admin: 04/16/18 06:08 Dose: Not Given Piperacillin Sod/Tazobactam Sod (Zosyn 3.375 In Ns 100ml) 100 mls @ 25 mls/hr IVPB Q8 KIMBERLEE; Protocol Stop: 04/30/18 22:16 Last Admin: 04/16/18 06:05 Dose: 25 mls/hr Micafungin Sodium 100 mg/ (Sodium Chloride) 100 mls @ 100 mls/hr IV DAILY KIMBERLEE; Protocol Stop: 04/21/18 16:01 Last Admin: 04/16/18 10:17 Dose: 100 mls/hr Morphine Sulfate (Morphine) 1 mg IVP Q6H PRN PRN Reason: Pain, severe (8-10) Last Admin: 04/16/18 10:17 Dose: 1 mg Ondansetron HCl (Zofran Inj) 4 mg IVP Q6H PRN PRN Reason: Nausea/Vomiting Last Admin: 03/28/18 14:06 Dose: 4 mg Oxycodone HCl (Oxycodone Immediate Release Tab) 15 mg PO Q12 KIMBERLEE Last Admin: 04/15/18 21:44 Dose: 15 mg - Labs Labs: 04/15/18 06:20 04/15/18 06:20 PT 14.2 SECONDS (9.4-12.5) H 03/28/18 06:30 INR 1.23 03/28/18 06:30 APTT 26.1 Seconds (25.1-36.5) 03/28/18 06:30 - Constitutional Appears: No Acute Distress - Head Exam Head Exam: ATRAUMATIC, NORMOCEPHALIC - Eye Exam Eye Exam: EOMI - ENT Exam ENT Exam: Mucous Membranes Moist - Neck Exam Neck Exam: Full ROM - Respiratory Exam Respiratory Exam: Clear to Ausculation Bilateral, NORMAL BREATHING PATTERN. a bsent: Accessory Muscle Use, Respiratory Distress - Cardiovascular Exam Cardiovascular Exam: RRR, +S1, +S2. absent: Diastolic murmur, Murmur - GI/Abdominal Exam GI & Abdominal Exam: Soft, Normal Bowel Sounds - Extremities Exam Extremities Exam: Full ROM. absent: Calf Tenderness, Pedal Edema - Neurological Exam Neurological Exam: Alert, Awake, Oriented x3 - Psychiatric Exam Psychiatric exam: Normal Affect, Normal Mood Additional comments: sacral ulcer stage II Assessment and Plan - Assessment and Plan (Free Text) Assessment: Pt is a 47yo male with a PMH of poly-substance abuse, hep C, sciatica, left hip septic joint, and liver abscess who presented to the [facility] ED complaining of pain in his left hip who was found to have a liver abscess. Plan: Liver abscess/ L Hip Abscess/ Left Groin Abscess - Oxycodone, and Morphine for pain control - IR drained liver abscess on 03/28/18, E. coli, Strep Sangius - CTAP 04/07/18: near complete resolution of fluid within the abscess cavity at the right lobe liver with small loculated/septate components diminished in size anterior to the medial left lobe liver inferior to the right lobe liver - CT L Hip and pelvis w contrast, shows erosive changes in the left femoral head/ acetabulum indicative of septic arthritis - 04/15/18 CTAP reordered to evaluate liver abscess - Continue zosyn (day 19) - Perihepatic abscess- Santosh ciferrii, continue micafungin - General surgery consulted, Dr. Hsu - ID consulted, Dr. Will - Ortho consulted, Dr. Day Sacral Ulcer - turn pt every 2 hours - bacitracin ointment Thrombocytosis - Plts 549 - improving will continue to monitor Hep C - Recommend out patient treatment follow up after IVDA cessation Hypokalemia, resolved - K 4.3, Replete PRN Ppx - Protonix - SCDs - Heparin Pt seen, examined, assessment and plan discussed with Dr Cassie Tellez PGY1 <Cassie Alba R - Last Filed: 04/16/18 12:44> Objective - Vital Signs/Intake and Output Vital Signs (last 24 hours): Temp Pulse Resp BP Pulse Ox 97.7 F 98 H 16 102/69 97 04/16/18 06:00 04/16/18 06:00 04/16/18 06:00 04/16/18 06:00 04/16/18 06:00 - Medications Medications: Current Medications Acetaminophen (Tylenol 325mg Tab) 650 mg PO Q6H PRN PRN Reason: Fever >100.4 F Last Admin: 04/14/18 08:38 Dose: 650 mg Bacitracin (Bacitracin) 1 gm TOP Q4H PRN PRN Reason: Inflammation Heparin Sodium (Porcine) (Heparin) 5,000 units SC Q8 KIMBERLEE; Protocol Last Admin: 04/16/18 06:08 Dose: Not Given Piperacillin Sod/Tazobactam Sod (Zosyn 3.375 In Ns 100ml) 100 mls @ 25 mls/hr IVPB Q8 KIMBERLEE; Protocol Stop: 04/30/18 22:16 Last Admin: 04/16/18 06:05 Dose: 25 mls/hr Micafungin Sodium 100 mg/ (Sodium Chloride) 100 mls @ 100 mls/hr IV DAILY KIMBERLEE; Protocol Stop: 04/21/18 16:01 Last Admin: 04/16/18 10:17 Dose: 100 mls/hr Morphine Sulfate (Morphine) 1 mg IVP Q6H PRN PRN Reason: Pain, severe (8-10) Last Admin: 04/16/18 10:17 Dose: 1 mg Ondansetron HCl (Zofran Inj) 4 mg IVP Q6H PRN PRN Reason: Nausea/Vomiting Last Admin: 03/28/18 14:06 Dose: 4 mg Oxycodone HCl (Oxycodone Immediate Release Tab) 15 mg PO Q12 KIMBERLEE Last Admin: 04/15/18 21:44 Dose: 15 mg - Labs Labs: 04/15/18 06:20 04/15/18 06:20 PT 14.2 SECONDS (9.4-12.5) H 03/28/18 06:30 INR 1.23 03/28/18 06:30 APTT 26.1 Seconds (25.1-36.5) 03/28/18 06:30 Attending/Attestation - Attestation I have personally seen and examined this patient.: Yes I have fully participated in the care of the patient.: Yes I have reviewed all pertinent clinical information, including history, physical exam and plan: Yes Notes (Text): Patient seen and examined by me with resident at 9:25AM on 04/16/18. Case including HPI, physical exam, and assessment and plan discussed with resident. Agree with above with following additions/corrections. Patient is a 47-year-old male with past medical history significant for polysubstance abuse, sciatica, hepatitis C, left hip septic joint status post washout that presented to the emergency room with left hip pain. Patient states his left hip his hurting more today and feels it may be secondary to the weather. Patient also complains of some inner buttock pain, states there is some drainage from the site and feels the skin is open. No abdominal pain. No nausea or vomiting. No chest pain or shortness of breath. No headaches or dizziness. No lightheadedness. No change in vision. No dysuria. No fevers or chills. Patient is having bowel movements. Physical exam: General: Awake and alert, lying in bed in no acute distress. HEENT: Normocephalic, atraumatic, Extraocular muscles intact, pupils equal and reactive, no scleral icterus. Oropharynx is pink and moist. No pharyngeal erythema or exudate appreciated. Neck is supple. Cardiovascular: Normal rhythm. Normal S1 and S2. No murmus, rubs, or gallops appreciated. Pulmonary: Normal respiratory effort. No rhonchi, rales, or wheezing appreciated. Gastrointestinal: Soft. Nondistended No tenderness. Drain on right with purulent discharge. Positive bowel sounds all 4 quadrants. No guarding. Musculoskeletal: Moves all extremities. No calf tenderness. Bilateral improved lower extremity edema. Positive left hip tenderness. Central nervous system: AAO x3, CN2-12 grossly intact. Dermatologic: Skin warm and dry. Positive Stage 2 ulcer noted with miminal bl oody dishcarge on inner right buttock Assessment and plan: Patient is a 47-year-old male with past medical history significant for polysubstance abuse, sciatica, hepatitis C, left hip septic joint status post washout that presented to the emergency room with left hip pain. 1. Liver abscess. Continue Zosyn. Continue Micafungin for positive santosh ciferrii in wound cultures. Culture also with E.coli and Streptococcus Sanguis. ID following, recommendations appreciated. Leukocytosis downtrending. Afebrile. S/P percutaneous perihepatic drain change and aspiration of 1000ml of thick purulent green-white fluid 04/06/18. Drainage from catheter site yesterday. CT abdomen and pelvis 04/15/2018 per radiologist showed pigtail catheter is again demonstrated along the right side of the liver, there is new complete drainage of the subcapsular fluid collection at the site of the pigtail catheter, there is a smaller collection seen anteriorly has slightly increased in thickness now measuring 22 x 53 mm previously [address] abd/pelvis 04/07/18 per radiologist showed near complete resolution of fluid within the abscess cavity at the right lobe of liver with small loculated separate components diminished in the size anterior to the medical left lobe liver and inferior to the right love liver; the right sided loculated collection is less decompressed than the anterior component; drainage catheter remains in good apparent position in the main segment of the abscess collection; cachexia and anasarca.CT abd/pelvis 04/01/18 per radiologist showed no significant change in the size of subcapsular abscess in the right lobe of the liver, a pigtail catheter is seen in place, there is a fluid level, the largest portion of the collection measures 14 x 8cm, there is a smaller loculation more anterior and inferior measuring 3.[address] abdomen and daljos59/28/18 per radiologist showed large 20 x 9.3 cm subcapsular hepatic abscess, a few tiny foci of air in the right upper quadrant which may be intraperitoneal, left groin 4.1 x 2.7 cm abscess, chronic osteomyelitis and septic arthritis of the left hip. 2. Left hip chronic osteomyelitis, septic arthritis, left groin abscess. Continue Zosyn. CT of left hip per radiologist showed erosive changes in the left femoral head and acetabulum consistent with septic arthritis, findings unchanged. CT abdomen and pelvis 04/15/2018 per radiologist showed severe erosion of the left femoral head and acetabulum unchanged. Orthopedics reconsulted, pending recommendations, calls placed to service, pending call back. Continue with pain management. 3. Stage II sacral decubitus. Patient every 2 hours. Patient advised to not to lie on the area. Continue local wound care. 4. Diarrhea. Resolved. C-diff negative 5. Bilateral lower extremity edema. Improved. No DVT seen on venous doppler of bilateral lower extremities. 6. Thrombocytosis. Likely reactive. Downtrending. Continue to monitor 7. Anemia. H&H stable. Continue to monitor CBC 8. Medication noncompliance. Patient was noncompliant with medications and follow up at last discharge, patient counseled at length on importance of medication compliance. 9. Hypokalemia. Resolved. Continue to monitor 10. Hepatitis C. Patient to follow up outpatient for treatment. Will be referred to [facility] on discharge. 11. IVDA. Patient counseled at length on cessation. 12. GI/DVT prophylaxis. Protonix/heparin Case was discussed in detail with patient regarding current diagnosis and treatment plan. All questions answered.
[2018-04-16] MEDS ORDERED: Bacitracin Ointment 30 GM TUBE TOP PRN (11:00)
--- NOTE | 2018-04-16 11:21 | CP.PCM.PN ---
Subjective - Date & Time of Evaluation Date of Evaluation: 04/16/18 Time of Evaluation: 09:10 - Subjective Subjective: Comfortable, no fevers, but still with left hip pain, abdominal pain is improving. Objective - Vital Signs/Intake and Output Vital Signs (last 24 hours): Temp Pulse Resp BP Pulse Ox 99 F 105 H 20 109/72 98 04/15/18 14:00 04/15/18 14:00 04/15/18 14:00 04/15/18 14:00 04/15/18 14:00 - Medications Medications: Current Medications Acetaminophen (Tylenol 325mg Tab) 650 mg PO Q6H PRN PRN Reason: Fever >100.4 F Last Admin: 04/14/18 08:38 Dose: 650 mg Heparin Sodium (Porcine) (Heparin) 5,000 units SC Q8 KIMBERLEE; Protocol Last Admin: 04/15/18 15:44 Dose: Not Given Piperacillin Sod/Tazobactam Sod (Zosyn 3.375 In Ns 100ml) 100 mls @ 25 mls/hr IVPB Q8 KIMBERLEE; Protocol Stop: 04/30/18 22:16 Last Admin: 04/15/18 14:11 Dose: 25 mls/hr Micafungin Sodium 100 mg/ (Sodium Chloride) 100 mls @ 100 mls/hr IV DAILY KIMBERLEE; Protocol Stop: 04/21/18 16:01 Last Admin: 04/15/18 11:14 Dose: 100 mls/hr Morphine Sulfate (Morphine) 1 mg IVP Q6H PRN PRN Reason: Pain, severe (8-10) Last Admin: 04/15/18 15:58 Dose: 1 mg Ondansetron HCl (Zofran Inj) 4 mg IVP Q6H PRN PRN Reason: Nausea/Vomiting Last Admin: 03/28/18 14:06 Dose: 4 mg Oxycodone HCl (Oxycodone Immediate Release Tab) 15 mg PO Q12 KIMBERLEE Last Admin: 04/15/18 11:19 Dose: 15 mg - Labs Labs: 04/15/18 06:20 04/15/18 06:20 PT 14.2 SECONDS (9.4-12.5) H 03/28/18 06:30 INR 1.23 03/28/18 06:30 APTT 26.1 Seconds (25.1-36.5) 03/28/18 06:30 - Constitutional Appears: Non-toxic, Cachectic, Chronically Ill - Head Exam Head Exam: NORMAL INSPECTION - Respiratory Exam Respiratory Exam: Decreased Breath Sounds - Cardiovascular Exam Cardiovascular Exam: +S1, +S2 - GI/Abdominal Exam GI & Abdominal Exam: Soft. absent: Tenderness Assessment and Plan - Assessment and Plan (Free Text) Plan: Assessment liver abscess and left groin abscess S/P CT-guided drainage, growing E. coli and Strep sanguis, now also Aline ciferii - repeat CT A/P is showing decreased size of abscess chronic osteomyelitis and septic arthritis of left hip history of sepsis due to Staph aureus and gram negative bacilli bacteremia with right hand and wrist skin and skin structure infection dyslipidemia hepatitis C infection history of IV drug use chronic alcohol abuse Plan continue Zosyn and Mycamine; blood cx are negative; follow up sensitivities of the Aline in the abscess will recommend re-evaluation of Ortho regarding the left hip - new CT hip from 04/11 is showing the chronic osteomyelitis and septic arthritis as unchanged - on initial presentation, Ortho saw patient and recommended IV antibiotics since the abscess in the groin was apparently too near the neurovascular bundle making surgery difficult and dangerous - discussed this with patient and he understands and acknowledges discussed with Dr. Alba - Ortho is being reconsulted, may need to go to another facility if patient needs surgery for this will continue to follow clinically
[2018-04-16] MEDS: oxyCODONE 15 mg Immediate Release Tab PO SCH ×2 (13:56→22:00)
[2018-04-17] MEDS: Morphine 2 mg/ml ISec IVP PRN ×2 (02:26→12:11)
[2018-04-17] MEDS: Piperacillin/Tazobact 3.375 gm 100 ML IVPB SCH (06:17)
[2018-04-17 08:40] LABS: HEMOGLOBIN 8.8 g/dL (14.0-18.0); MEAN CELL VOLUME 77.6 fl (80.0-105.0); MEAN CORPUSCULAR HEMOGLOBIN 23.2 pg (25.0-35.0); MEAN CORPUSCULAR HGB CONC 29.8 g/dl (31.0-37.0); MEAN PLATELET VOLUME 8.5 fl (7.0-11.0); RBC 3.8 10^6/uL (3.5-6.1); RED CELL DISTRIBUTION WIDTH 23.8 % (11.5-14.5); WHITE BLOOD COUNT 13.6 10^3/uL (4.5-11.0)
[2018-04-17] MEDS: oxyCODONE 15 mg Immediate Release Tab PO SCH ×2 (10:22→21:32)
[2018-04-17] MEDS: Micafungin 100 MG in Sodium Chloride 0.9% 100 ML IV SCH (10:30)
[2018-04-17 10:46] LABS: ALB/GLOB RATIO 0.7 (1.1-1.8); ALBUMIN 3.6 g/dL (3.0-4.8); ALT/SGPT 37 U/L (7-56); AST/SGOT 50 U/L (17-59); BLOOD UREA NITROGEN 21 mg/dL (7-21); CALCIUM 9.5 mg/dL (8.4-10.5); GFR NON-AFRICAN AMERICAN > 60
--- NOTE | 2018-04-17 11:12 | CP.PCM.PN ---
<Sean Tellez - Last Filed: 04/17/18 11:23> Subjective - Date & Time of Evaluation Date of Evaluation: 04/17/18 Time of Evaluation: 06:00 - Subjective Subjective: Pt seen and examined. Pain is managed well with oxycodone and morphine, no SOB or new complaints at this time. Objective - Vital Signs/Intake and Output Vital Signs (last 24 hours): Temp Pulse Resp BP Pulse Ox 98.0 F 92 H 20 99/68 L 98 04/17/18 06:00 04/17/18 06:00 04/17/18 06:00 04/17/18 06:00 04/17/18 06:00 Intake and Output: 04/17/18 04/17/18 06:59 18:59 Intake Total 200 Output Total 1358 Balance -1158 - Medications Medications: Current Medications Acetaminophen (Tylenol 325mg Tab) 650 mg PO Q6H PRN PRN Reason: Fever >100.4 F Last Admin: 04/14/18 08:38 Dose: 650 mg Bacitracin (Bacitracin) 1 gm TOP Q4H PRN PRN Reason: Inflammation Doxycycline Hyclate (Doryx) 100 mg PO Q12 KIMBERLEE; Protocol Heparin Sodium (Porcine) (Heparin) 5,000 units SC Q8 KIMBERLEE; Protocol Last Admin: 04/16/18 22:03 Dose: Not Given Micafungin Sodium 100 mg/ (Sodium Chloride) 100 mls @ 100 mls/hr IV DAILY KIMBERLEE; Protocol Stop: 04/21/18 16:01 Last Admin: 04/16/18 10:17 Dose: 100 mls/hr Morphine Sulfate (Morphine) 1 mg IVP Q6H PRN PRN Reason: Pain, severe (8-10) Last Admin: 04/17/18 02:26 Dose: 1 mg Ondansetron HCl (Zofran Inj) 4 mg IVP Q6H PRN PRN Reason: Nausea/Vomiting Last Admin: 03/28/18 14:06 Dose: 4 mg Oxycodone HCl (Oxycodone Immediate Release Tab) 15 mg PO Q12 KIMBERLEE Last Admin: 04/17/18 10:22 Dose: 15 mg - Labs Labs: 04/17/18 08:27 04/17/18 08:27 PT 14.2 SECONDS (9.4-12.5) H 03/28/18 06:30 INR 1.23 03/28/18 06:30 APTT 26.1 Seconds (25.1-36.5) 03/28/18 06:30 - Constitutional Appears: No Acute Distress - Head Exam Head Exam: ATRAUMATIC, NORMOCEPHALIC - Eye Exam Eye Exam: EOMI - ENT Exam ENT Exam: Mucous Membranes Moist - Neck Exam Neck Exam: Full ROM - Respiratory Exam Respiratory Exam: Clear to Ausculation Bilateral, NORMAL BREATHING PATTERN. absent: Accessory Muscle Use - Cardiovascular Exam Cardiovascular Exam: RRR, +S1, +S2. absent: Diastolic murmur - GI/Abdominal Exam GI & Abdominal Exam: Soft, Normal Bowel Sounds. absent: Tenderness Additional comments: drain in place, no signs of infection - Extremities Exam Extremities Exam: absent: Calf Tenderness, Pedal Edema, Tenderness - Neurological Exam Neurological Exam: Alert, Awake, Oriented x3 - Psychiatric Exam Psychiatric exam: Normal Affect, Normal Mood - Skin Skin Exam: Dry, Normal Color, Warm Assessment and Plan - Assessment and Plan (Free Text) Assessment: Pt is a 47yo male with a PMH of poly-substance abuse, hep C, sciatica, left hip septic joint, and liver abscess who [place] [facility] [place] of pain in his left hip who was found to have a liver abscess. Plan: Liver abscess/ L Hip Abscess/ Left Groin Abscess - Oxycodone, and Morphine for pain control - IR drained liver abscess on 03/28/18, E. coli, Strep Sangius - CTAP 04/07/18: near complete resolution of fluid within the abscess cavity at the right lobe liver with small loculated/septate components diminished in size anterior to the medial left lobe liver inferior to the right lobe liver - CT L Hip and pelvis w contrast, shows erosive changes in the left femoral head/ acetabulum indicative of septic arthritis - 04/15/18 CTAP: near complete drainage of the subcapsular fluid - Continue zosyn (day 20) - Perihepatic abscess- Santosh ciferrii - continue micafungin - General surgery consulted, Dr. Hsu - ID consulted, Dr. Will - Ortho consulted, Dr. Day Sacral Ulcer - turn pt every 2 hours - bacitracin ointment Thrombocytosis - Plts 517 - improving will continue to monitor Hep C - Recommend out patient treatment follow up after IVDA cessation Hypokalemia, resolved - K 4.5, Replete PRN Ppx - Protonix - SCDs - Heparin Pt seen, examined, assessment and plan discussed with Dr Cassie Tellez PGY1, Internal Medicine Resident <Cassie Alba R - Last Filed: 04/17/18 16:37> Objective - Vital Signs/Intake and Output Vital Signs (last 24 hours): Temp Pulse Resp BP Pulse Ox 98.0 F 92 H 20 99/68 L 98 04/17/18 06:00 04/17/18 06:00 04/17/18 06:00 04/17/18 06:00 04/17/18 06:00 Intake and Output: 04/17/18 04/17/18 06:59 18:59 Intake Total 200 Output Total 1358 Balance -1158 - Medications Medications: Current Medications Acetaminophen (Tylenol 325mg Tab) 650 mg PO Q6H PRN PRN Reason: Fever >100.4 F Last Admin: 04/14/18 08:38 Dose: 650 mg Bacitracin (Bacitracin) 1 gm TOP Q4H PRN PRN Reason: Inflammation Doxycycline Hyclate (Doryx) 100 mg PO Q12 KIMBERLEE; Protocol Heparin Sodium (Porcine) (Heparin) 5,000 units SC Q8 KIMBERLEE; Protocol Last Admin: 04/17/18 13:53 Dose: 5,000 units Micafungin Sodium 100 mg/ (Sodium Chloride) 100 mls @ 100 mls/hr IV DAILY KIMBERLEE; Protocol Stop: 04/21/18 16:01 Last Admin: 04/17/18 10:30 Dose: 100 mls/hr Morphine Sulfate (Morphine) 1 mg IVP Q6H PRN PRN Reason: Pain, severe (8-10) Last Admin: 04/17/18 12:11 Dose: 1 mg Ondansetron HCl (Zofran Inj) 4 mg IVP Q6H PRN PRN Reason: Nausea/Vomiting Last Admin: 03/28/18 14:06 Dose: 4 mg Oxycodone HCl (Oxycodone Immediate Release Tab) 15 mg PO Q12 KIMBERLEE Last Admin: 04/17/18 10:22 Dose: 15 mg - Labs Labs: 04/17/18 08:27 04/17/18 08:27 PT 14.2 SECONDS (9.4-12.5) H 03/28/18 06:30 INR 1.23 03/28/18 06:30 APTT 26.1 Seconds (25.1-36.5) 03/28/18 06:30 Attending/Attestation - Attestation I have personally seen and examined this patient.: Yes I have fully participated in the care of the patient.: Yes I have reviewed all pertinent clinical information, including history, physical exam and plan: Yes Notes (Text): Patient seen and examined by me with resident at 9:50AM on 04/17/18. Case including HPI, physical exam, and assessment and plan discussed with resident. Agree with above with following additions/corrections. Patient is a 47-year-old male with past medical history significant for polysubstance abuse, sciatica, hepatitis C, left hip septic joint status post washout that presented to the emergency room with left hip pain. Patient states he feels ok. Still with left hip pain. Patient feels it is worse secondary to the rain. Patient needs assitance to get out of bed secondary to left hip pain. No abdominal pain. No nausea or vomiting. No chest pain or shortness of breath. No headaches or dizziness. No lightheadedness. No change in vision. No dysuria. No fevers or chills. Patient is having bowel movements. States his wound on the inner side of his buttock has improved. Physical exam: General: Awake and alert, lying in bed in no acute distress. HEENT: Normocephalic, atraumatic, Extraocular muscles intact, pupils equal and reactive, no scleral icterus. Oropharynx is pink and moist. No pharyngeal erythema or exudate appreciated. Neck is supple. Cardiovascular: Normal rhythm. Normal S1 and S2. No murmus, rubs, or gallops appreciated. Pulmonary: Normal respiratory effort. No rhonchi, rales, or wheezing appreciated. Gastrointestinal: Soft. Nondistended No tenderness. Drain on right with minimal purulent discharge. Positive bowel sounds all 4 quadrants. No guarding. Musculoskeletal: Moves all extremities. No calf tenderness. Bilateral improved lower extremity edema. Positive left hip tenderness. Central nervous system: AAO x3, CN2-12 grossly intact. Dermatologic: Skin warm and dry. Positive Stage 2 ulcer noted on inner right buttock Assessment and plan: Patient is a 47-year-old male with past medical history significant for polysubstance abuse, sciatica, hepatitis C, left hip septic joint status post washout that presented to the emergency room with left hip pain. 1. Liver abscess. Continue Zosyn. Continue Micafungin for positive santosh ciferrii in wound cultures. Culture also with E.coli and Streptococcus Sanguis. ID following, recommendations appreciated. Persistant leukocytosis. Afebrile. Will need to follow up tomorrow with IR for possible removal of drain. S/P percutaneous perihepatic drain change and aspiration of 1000ml of thick purulent green-white fluid 04/06/18. Drainage from catheter site yesterday. CT abdomen and pelvis 04/15/2018 per radiologist showed pigtail catheter is again demonstrated along the right side of the liver, there is new complete drainage of the subcapsular fluid collection at the site of the pigtail catheter, there is a smaller collection seen anteriorly has slightly increased in thickness now measuring 22 x 53 mm previously [address] abd/pelvis 04/07/18 per radiologist showed near complete resolution of fluid within the abscess cavity at the right lobe of liver with small loculated separate components diminished in the size anterior to the medical left lobe liver and inferior to the right love liver; the right sided loculated collection is less decompressed than the anterior component; drainage catheter remains in good apparent position in the main segment of the abscess collection; cachexia and anasarca.CT abd/pelvis 04/01/18 per radiologist showed no significant change in the size of subcapsular abscess in the right lobe of the liver, a pigtail catheter is seen in place, there is a fluid level, the largest portion of the collection measures 14 x 8cm, there is a smaller loculation more anterior and inferior measuring 3.[address] abdomen and [id number] per radiologist showed large 20 x 9.3 cm subcapsular hepatic abscess, a few tiny foci of air in the right upper quadrant which may be intraperitoneal, left groin 4.1 x 2.7 cm abscess, chronic osteomyelitis and septic arthritis of the left hip. 2. Left hip chronic osteomyelitis, septic arthritis, left groin abscess. Continue Zosyn. CT of left hip per radiologist showed erosive changes in the left femoral head and acetabulum consistent with septic arthritis, findings unchanged. CT abdomen and pelvis 04/15/2018 per radiologist showed severe erosion of the left femoral head and acetabulum unchanged. Orthopedics reconsulted, pending recommendations. Continue with pain management. 3. Stage II sacral decubitus. Turn patient every 2 hours. Patient advised to not to lie on the area. Continue local wound care. 4. Diarrhea. Resolved. C-diff negative 5. Bilateral lower extremity edema. Improved. No DVT seen on venous doppler of bilateral lower extremities. 6. Thrombocytosis. Likely reactive. Downtrending. Continue to monitor 7. Anemia. H&H stable. Continue to monitor CBC 8. Medication noncompliance. Patient was noncompliant with medications and follow up at last discharge, patient counseled at length on importance of medication compliance. 9. Hypokalemia. Resolved. Continue to monitor 10. Hepatitis C. Patient to follow up outpatient for treatment. Will be referred to [facility] on discharge. 11. IVDA. Patient counseled at length on cessation. 12. GI/DVT prophylaxis. Protonix/heparin Case was discussed in detail with patient regarding current diagnosis and treatment plan. All questions answered.
--- NOTE | 2018-04-17 14:11 | CP.PCM.PN ---
Subjective - Date & Time of Evaluation Date of Evaluation: 04/17/18 Time of Evaluation: 09:30 - Subjective Subjective: No fevers, still having left hip pain, no nausea, no diarrhea. Abdominal pain is better. Objective - Vital Signs/Intake and Output Vital Signs (last 24 hours): Temp Pulse Resp BP Pulse Ox 97.7 F 98 H 16 102/69 97 04/16/18 06:00 04/16/18 06:00 04/16/18 06:00 04/16/18 06:00 04/16/18 06:00 - Medications Medications: Current Medications Acetaminophen (Tylenol 325mg Tab) 650 mg PO Q6H PRN PRN Reason: Fever >100.4 F Last Admin: 04/14/18 08:38 Dose: 650 mg Bacitracin (Bacitracin) 1 gm TOP Q4H PRN PRN Reason: Inflammation Heparin Sodium (Porcine) (Heparin) 5,000 units SC Q8 KIMBERLEE; Protocol Last Admin: 04/16/18 06:08 Dose: Not Given Piperacillin Sod/Tazobactam Sod (Zosyn 3.375 In Ns 100ml) 100 mls @ 25 mls/hr IVPB Q8 KIMBERLEE; Protocol Stop: 04/30/18 22:16 Last Admin: 04/16/18 06:05 Dose: 25 mls/hr Micafungin Sodium 100 mg/ (Sodium Chloride) 100 mls @ 100 mls/hr IV DAILY KIMBERLEE; Protocol Stop: 04/21/18 16:01 Last Admin: 04/16/18 10:17 Dose: 100 mls/hr Morphine Sulfate (Morphine) 1 mg IVP Q6H PRN PRN Reason: Pain, severe (8-10) Last Admin: 04/16/18 10:17 Dose: 1 mg Ondansetron HCl (Zofran Inj) 4 mg IVP Q6H PRN PRN Reason: Nausea/Vomiting Last Admin: 03/28/18 14:06 Dose: 4 mg Oxycodone HCl (Oxycodone Immediate Release Tab) 15 mg PO Q12 KIMBERLEE Last Admin: 04/15/18 21:44 Dose: 15 mg - Labs Labs: 04/15/18 06:20 04/15/18 06:20 PT 14.2 SECONDS (9.4-12.5) H 03/28/18 06:30 INR 1.23 03/28/18 06:30 APTT 26.1 Seconds (25.1-36.5) 03/28/18 06:30 - Constitutional Appears: Chronically Ill - Head Exam Head Exam: NORMAL INSPECTION - Neck Exam Neck Exam: absent: Meningismus - Respiratory Exam Respiratory Exam: Decreased Breath Sounds - Cardiovascular Exam Cardiovascular Exam: +S1, +S2 - GI/Abdominal Exam GI & Abdominal Exam: Soft. absent: Tenderness Assessment and Plan - Assessment and Plan (Free Text) Plan: Assessment liver abscess and left groin abscess S/P CT-guided drainage, growing E. coli and Strep sanguis, now also Aline ciferii - repeat CT A/P is showing decreased size of abscess chronic osteomyelitis and septic arthritis of left hip history of sepsis due to Staph aureus and gram negative bacilli bacteremia with right hand and wrist skin and skin structure infection dyslipidemia hepatitis C infection history of IV drug use chronic alcohol abuse Plan continue Zosyn and Mycamine; blood cx are negative; follow up sensitivities of the Aline in the abscess; will add Doxycycline, although MRSA was never isolated in cultures; will get nasal MRSA screen will recommend re-evaluation of Ortho regarding the left hip - new CT hip from 04/11 is showing the chronic osteomyelitis and septic arthritis as unchanged - on initial presentation, Ortho saw patient and recommended IV antibiotics since the abscess in the groin was apparently too near the neurovascular bundle making surgery difficult and dangerous - discussed this with patient and he understands and acknowledges discussed with Dr. Alba - Ortho is being reconsulted, may need to go to another facility if patient needs surgery for this will continue to follow clinically
[2018-04-18] MEDS: Morphine 2 mg/ml ISec IVP PRN ×4 (01:00→20:01)
[2018-04-18 08:07] VITALS: RESP 20
[2018-04-18] MEDS: Micafungin 100 MG in Sodium Chloride 0.9% 100 ML IV SCH (10:05)
[2018-04-18] MEDS: oxyCODONE 15 mg Immediate Release Tab PO SCH ×2 (10:09→21:27)
--- NOTE | 2018-04-18 11:55 | CP.PCM.PN ---
<Sean Tellez - Last Filed: 04/18/18 12:06> Subjective - Date & Time of Evaluation Date of Evaluation: 04/18/18 Time of Evaluation: 06:00 - Subjective Subjective: Pt seen and examined this morning at bedside. Per nursing, pt given medication for pain, pig tail drain right side of abdomen, with some pus draining. Objective - Vital Signs/Intake and Output Vital Signs (last 24 hours): Temp Pulse Resp BP Pulse Ox 98.4 F 89 20 106/74 97 04/18/18 06:00 04/18/18 06:00 04/18/18 06:00 04/18/18 06:00 04/18/18 06:00 - Medications Medications: Current Medications Acetaminophen (Tylenol 325mg Tab) 650 mg PO Q6H PRN PRN Reason: Fever >100.4 F Last Admin: 04/14/18 08:38 Dose: 650 mg Amino Acid Protein (Prostat 15 G Packet) 30 gm PO BID KIMBELREE Bacitracin (Bacitracin) 1 gm TOP Q4H PRN PRN Reason: Inflammation Doxycycline Hyclate (Doryx) 100 mg PO Q12 KIMBERLEE; Protocol Last Admin: 04/18/18 10:05 Dose: 100 mg Heparin Sodium (Porcine) (Heparin) 5,000 units SC Q8 KIMBERLEE; Protocol Last Admin: 04/18/18 06:23 Dose: Not Given Micafungin Sodium 100 mg/ (Sodium Chloride) 100 mls @ 100 mls/hr IV DAILY KIMBERLEE; Protocol Stop: 04/21/18 16:01 Last Admin: 04/18/18 10:05 Dose: 100 mls/hr Morphine Sulfate (Morphine) 1 mg IVP Q6H PRN PRN Reason: Pain, severe (8-10) Last Admin: 04/18/18 06:23 Dose: 1 mg Ondansetron HCl (Zofran Inj) 4 mg IVP Q6H PRN PRN Reason: Nausea/Vomiting Last Admin: 03/28/18 14:06 Dose: 4 mg Oxycodone HCl (Oxycodone Immediate Release Tab) 15 mg PO Q12 KIMBERLEE Last Admin: 04/18/18 10:09 Dose: 15 mg - Labs Labs: 04/17/18 08:27 04/17/18 08:27 PT 14.2 SECONDS (9.4-12.5) H 03/28/18 06:30 INR 1.23 03/28/18 06:30 APTT 26.1 Seconds (25.1-36.5) 03/28/18 06:30 - Constitutional Appears: No Acute Distress - Head Exam Head Exam: ATRAUMATIC, NORMOCEPHALIC - Eye Exam Eye Exam: EOMI - ENT Exam ENT Exam: Mucous Membranes Moist - Neck Exam Neck Exam: Full ROM, Normal Inspection - Respiratory Exam Respiratory Exam: Clear to Ausculation Bilateral, NORMAL BREATHING PATTERN - Cardiovascular Exam Cardiovascular Exam: RRR, +S1, +S2. absent: Diastolic murmur, Murmur - GI/Abdominal Exam GI & Abdominal Exam: Soft, Normal Bowel Sounds - Extremities Exam Extremities Exam: Full ROM. absent: Calf Tenderness, Pedal Edema - Neurological Exam Neurological Exam: Alert, Awake, Oriented x3 - Psychiatric Exam Psychiatric exam: Normal Affect, Normal Mood - Skin Skin Exam: Dry, Intact, Warm Assessment and Plan - Assessment and Plan (Free Text) Assessment: Pt is a 47yo male with a PMH of poly-substance abuse, hep C, sciatica, left hip septic joint, and liver abscess who presented to the [facility] [place] complaining of pain in his left hip who was found to have a liver abscess. Plan: Liver abscess/ L Hip Abscess/ Left Groin Abscess - Oxycodone, and Morphine - IR drained liver abscess 03/28/18, E. coli, Strep Sangius - CTAP 04/07/18: near complete resolution of fluid within the abscess cavity at the right lobe liver with small loculated/septate components diminished in size anterior to the medial left lobe liver inferior to the right lobe liver - CT L Hip and pelvis w contrast, shows erosive changes in the left femoral head/ acetabulum indicative of septic arthritis - 04/15/18 CTAP: near complete drainage of the subcapsular fluid - Perihepatic abscess- Aline ciferrii, continue micafungin - ID consulted, Dr. Will, added Doxycycline 100mg Q12H, Zosyn discontinued, nasal MRSA screen - General surgery consulted, Dr. Hsu - Ortho consulted, Dr. Day Sacral Ulcer - turn every 2 hours, continue bacitracin ointment Hep C - Recommend out patient treatment follow up after IVDA cessation Thrombocytosis - Plts 517, improving will continue to monitor Hypokalemia, resolved - K 4.5 - Replete PRN Ppx - SCDs - Heparin - Protonix Pt seen, examined, assessment and plan discussed with Dr Esperanza Tellez PGY1, Internal Medicine Resident <Rachel Mata - Last Filed: 04/19/18 16:03> Objective - Vital Signs/Intake and Output Vital Signs (last 24 hours): Temp Pulse Resp BP Pulse Ox 98.4 F 81 20 104/73 98 04/19/18 08:23 04/19/18 08:23 04/19/18 08:23 04/19/18 08:23 04/19/18 08:23 Intake and Output: 04/19/18 04/19/18 06:59 18:59 Intake Total 1100 Output Total 1208 Balance -108 - Medications Medications: Current Medications Acetaminophen (Tylenol 325mg Tab) 650 mg PO Q6H PRN PRN Reason: Fever >100.4 F Last Admin: 04/14/18 08:38 Dose: 650 mg Amino Acid Protein (Prostat 15 G Packet) 30 gm PO BID KIMBERLEE Last Admin: 04/19/18 13:06 Dose: Not Given Bacitracin (Bacitracin) 1 gm TOP Q4H PRN PRN Reason: Inflammation Doxycycline Hyclate (Doryx) 100 mg PO Q12 KIMBERLEE; Protocol Last Admin: 04/19/18 10:40 Dose: 100 mg Micafungin Sodium 100 mg/ (Sodium Chloride) 100 mls @ 100 mls/hr IV DAILY KIMBERLEE; Protocol Stop: 04/21/18 16:01 Last Admin: 04/19/18 11:34 Dose: 100 mls/hr Morphine Sulfate (Morphine) 1 mg IVP Q6H PRN PRN Reason: Pain, severe (8-10) Last Admin: 04/19/18 10:40 Dose: 1 mg Ondansetron HCl (Zofran Inj) 4 mg IVP Q6H PRN PRN Reason: Nausea/Vomiting Last Admin: 03/28/18 14:06 Dose: 4 mg Oxycodone HCl (Oxycodone Immediate Release Tab) 15 mg PO Q12 KIMBERLEE Last Admin: 04/19/18 13:07 Dose: 15 mg - Labs Labs: 04/19/18 06:20 04/19/18 06:20 PT 14.2 SECONDS (9.4-12.5) H 03/28/18 06:30 INR 1.23 03/28/18 06:30 APTT 26.1 Seconds (25.1-36.5) 03/28/18 06:30 Attending/Attestation - Attestation I have personally seen and examined this patient.: Yes I have fully participated in the care of the patient.: Yes I have reviewed all pertinent clinical information, including history, physical exam and plan: Yes Notes (Text): 04/19/18 15:59 Attending note; Patient seen and examined with resident. Still complaining of left hip pain on and off. Denies any fevers, chills. Denies any nausea, vomiting. Patient is a 47-year-old male with past medical history significant for polysubstance abuse, sciatica, hepatitis C, left hip septic joint status post washout that presented to the emergency room with left hip pain and abdominal discomfort. 1. Liver abscess. Status post liver abscess drainage and drain placement. no leakage noted. Minimal drainage. Case discussed with IR in detail for Possible drain removal. Culture grew Escherichia coli, Streptococcus and candidia ciferrii. Patient is currently on IV micafungin and doxycycline. Follow-up with interventional radiology closely for removal of the drain. 2. Anemia. Chronic. H&H stable. hb is 9.3. No active bleeding noted. 3. History of active drug abuse; complete heroin cessation is strongly advised. 4. Pain Management with OxyContin. 5. Hepatitis C. secondary to drug abuse . HIV is negative .Patient to follow up outpatient for treatment. Patient will be refereed to [facility] for hepatitis c treatment. 6. Orthopedic evaluation appreciated. Patient is referred to tertiary level Center for chronic left hip osteomyelitis. Case discussed with field case manager in detail. Patient applied for Medicaid. Patient uses wheelchair for ambulation. Upon discharge patient will be referred to [facility] clinic.
--- NOTE | 2018-04-18 14:32 | CP.PCM.PN ---
Subjective - Date & Time of Evaluation Date of Evaluation: 04/18/18 Time of Evaluation: 14:29 - Subjective Subjective: Patient seen and examined at bedside. He complains of L hip pain that is 8/10 on average. His pain is located predominantly to lateral hip but also to groin. He notes that he is able to transfer and ambulate short distances with his walker. The patient is known to be non-compliant with abx therapy upon last discharge. He is currently being treated with PO and IV abx for liver abscess which was drained by IR. Denies any fevers/CP/SOB/n/v. Objective - Vital Signs/Intake and Output Vital Signs (last 24 hours): Temp Pulse Resp BP Pulse Ox 98.4 F 89 20 106/74 97 04/18/18 06:00 04/18/18 06:00 04/18/18 06:00 04/18/18 06:00 04/18/18 06:00 - Medications Medications: Current Medications Acetaminophen (Tylenol 325mg Tab) 650 mg PO Q6H PRN PRN Reason: Fever >100.4 F Last Admin: 04/14/18 08:38 Dose: 650 mg Amino Acid Protein (Prostat 15 G Packet) 30 gm PO BID KIMBERLEE Bacitracin (Bacitracin) 1 gm TOP Q4H PRN PRN Reason: Inflammation Doxycycline Hyclate (Doryx) 100 mg PO Q12 KIMBERLEE; Protocol Last Admin: 04/18/18 10:05 Dose: 100 mg Heparin Sodium (Porcine) (Heparin) 5,000 units SC Q8 KIMBERLEE; Protocol Last Admin: 04/18/18 06:23 Dose: Not Given Micafungin Sodium 100 mg/ (Sodium Chloride) 100 mls @ 100 mls/hr IV DAILY KIMBERLEE; Protocol Stop: 04/21/18 16:01 Last Admin: 04/18/18 10:05 Dose: 100 mls/hr Morphine Sulfate (Morphine) 1 mg IVP Q6H PRN PRN Reason: Pain, severe (8-10) Last Admin: 04/18/18 13:33 Dose: 1 mg Ondansetron HCl (Zofran Inj) 4 mg IVP Q6H PRN PRN Reason: Nausea/Vomiting Last Admin: 03/28/18 14:06 Dose: 4 mg Oxycodone HCl (Oxycodone Immediate Release Tab) 15 mg PO Q12 KIMBERLEE Last Admin: 04/18/18 10:09 Dose: 15 mg - Labs Labs: 04/17/18 08:27 04/17/18 08:27 PT 14.2 SECONDS (9.4-12.5) H 03/28/18 06:30 INR 1.23 03/28/18 06:30 APTT 26.1 Seconds (25.1-36.5) 03/28/18 06:30 - Extremities Exam Additional comments: L hip: Anterior incision well healed, no erythema or drainage lateral hip and groin tenderness firm swelling diffuse lateral hip sensation intact SP/DP/TN motor intact 5/5 EHL/FHL/TA/G/Q/HS, 2/5 HF pedal pulses intact calves soft NT b/l Assessment and Plan (1) Hip osteomyelitis, left Assessment & Plan: -No acute orthopedic intervention is recommended at this time. -Recent hip CT on 04/11 shows erosive changes to femoral head and acetabulum unchaged from previous imaging . -Continue abx as per ID. Patient's hip was aspirated by IR on 03/28 and patient has been on long standing IV abx. -PT/OT WBAT, hip ROM and strengthening exercises -Dr. Day recommends referral to [facility] versus [facility] for definitive care since this is beyond his scope of practice. -above d/w Dr. Day in agreement Status: Acute
[2018-04-18] MEDS: Prostat 15 g packet PO SCH (21:28)
[2018-04-19] MEDS: Morphine 2 mg/ml ISec IVP PRN ×2 (03:53→10:40)
[2018-04-19 06:48] LABS: HEMOGLOBIN 9.3 g/dL (14.0-18.0); MEAN CELL VOLUME 77.7 fl (80.0-105.0); MEAN CORPUSCULAR HEMOGLOBIN 23.3 pg (25.0-35.0); MEAN PLATELET VOLUME 8.4 fl (7.0-11.0); RBC 3.99 10^6/uL (3.5-6.1); RED CELL DISTRIBUTION WIDTH 23.2 % (11.5-14.5); WHITE BLOOD COUNT 11.6 10^3/uL (4.5-11.0)
[2018-04-19 06:57] VITALS: BP 104/73; PULSE 81; TEMP 98.4; O2SAT 98
[2018-04-19 07:01] LABS: ALB/GLOB RATIO 0.7 (1.1-1.8); ALBUMIN 3.7 g/dL (3.0-4.8); ALT/SGPT 39 U/L (7-56); AST/SGOT 50 U/L (17-59); BLOOD UREA NITROGEN 18 mg/dL (7-21); GFR NON-AFRICAN AMERICAN > 60
[2018-04-19] MEDS: oxyCODONE 15 mg Immediate Release Tab PO SCH ×2 (10:41→13:07)
[2018-04-19] MEDS: Micafungin 100 MG in Sodium Chloride 0.9% 100 ML IV SCH (11:34)
[2018-04-19] MEDS: Prostat 15 g packet PO SCH (13:06)
--- NOTE | 2018-04-19 13:39 | CP.PCM.PN ---
Subjective - Date & Time of Evaluation Date of Evaluation: 04/18/18 Time of Evaluation: 09:45 - Subjective Subjective: Still with left hip pain, no fevers, less abdominal pain, no nausea. Objective - Vital Signs/Intake and Output Vital Signs (last 24 hours): Temp Pulse Resp BP Pulse Ox 98.0 F 92 H 20 99/68 L 98 04/17/18 06:00 04/17/18 06:00 04/17/18 06:00 04/17/18 06:00 04/17/18 06:00 Intake and Output: 04/17/18 04/17/18 06:59 18:59 Intake Total 200 Output Total 1358 Balance -1158 - Medications Medications: Current Medications Acetaminophen (Tylenol 325mg Tab) 650 mg PO Q6H PRN PRN Reason: Fever >100.4 F Last Admin: 04/14/18 08:38 Dose: 650 mg Bacitracin (Bacitracin) 1 gm TOP Q4H PRN PRN Reason: Inflammation Doxycycline Hyclate (Doryx) 100 mg PO Q12 KIMBERLEE; Protocol Heparin Sodium (Porcine) (Heparin) 5,000 units SC Q8 KIMBERLEE; Protocol Last Admin: 04/17/18 13:53 Dose: 5,000 units Micafungin Sodium 100 mg/ (Sodium Chloride) 100 mls @ 100 mls/hr IV DAILY KIMBERLEE; Protocol Stop: 04/21/18 16:01 Last Admin: 04/17/18 10:30 Dose: 100 mls/hr Morphine Sulfate (Morphine) 1 mg IVP Q6H PRN PRN Reason: Pain, severe (8-10) Last Admin: 04/17/18 12:11 Dose: 1 mg Ondansetron HCl (Zofran Inj) 4 mg IVP Q6H PRN PRN Reason: Nausea/Vomiting Last Admin: 03/28/18 14:06 Dose: 4 mg Oxycodone HCl (Oxycodone Immediate Release Tab) 15 mg PO Q12 KIMBERLEE Last Admin: 04/17/18 10:22 Dose: 15 mg - Labs Labs: 04/17/18 08:27 04/17/18 08:27 PT 14.2 SECONDS (9.4-12.5) H 03/28/18 06:30 INR 1.23 03/28/18 06:30 APTT 26.1 Seconds (25.1-36.5) 03/28/18 06:30 - Constitutional Appears: Chronically Ill - Head Exam Head Exam: NORMAL INSPECTION - Respiratory Exam Respiratory Exam: Decreased Breath Sounds - Cardiovascular Exam Cardiovascular Exam: +S1, +S2 - GI/Abdominal Exam GI & Abdominal Exam: absent: Tenderness Assessment and Plan - Assessment and Plan (Free Text) Plan: Assessment liver abscess and left groin abscess S/P CT-guided drainage, growing E. coli and Strep sanguis, now also Aline ciferii - repeat CT A/P is showing decreased size of abscess chronic osteomyelitis and septic arthritis of left hip history of sepsis due to Staph aureus and gram negative bacilli bacteremia with right hand and wrist skin and skin structure infection dyslipidemia hepatitis C infection history of IV drug use chronic alcohol abuse Plan on Zosyn and Mycamine; blood cx are negative; also on Doxycycline, although MRSA was never isolated in cultures; patient can be switched to PO Augmentin, Doxycycline and Diflucan when ready to be discharged but should be followed up by an Orthopedic surgeon to evaluate what to do about his left hip new CT hip from 04/11 is showing the chronic osteomyelitis and septic arthritis as unchanged - on initial presentation, Ortho saw patient and recommended IV antibiotics since the abscess in the groin was apparently too near the neurovascular bundle making surgery difficult and dangerous - discussed this with patient and he understands and acknowledges that he needs to see an Ortho for optimal care for the left hip discussed with Dr. Alba and Dr. Mata
--- NOTE | 2018-04-19 15:12 | CP.PCM.DIS ---
<Sean Tellez Rich - Last Filed: 04/19/18 15:46> Provider - Provider Date of Admission: 03/25/18 22:42 Attending physician: Rachel Mata MD Primary care physician: NO PRIMARY CARE PROVIDER Consults: 03/29/18 15:51 Nursing Referral for Wound Care Routine Comment: gravity drainage Physician Instructions: Reason For Exam: s/p drain to hepatic abcess 03/31/18 07:09 Consult [Physician Consult] Routine Comment: Consulting Provider: David Polanco Consulting Physician: David Polanco Reason for Consult: IR drain of L hip, ortho wants IR to do it 04/13/18 09:51 Consult [Physician Consult] Routine Comment: Consulting Provider: Fco Day Consulting Physician: Fco Day Reason for Consult: septic hip, not responsive to antibiotics Additional Comments: re-consult requested by ID 04/16/18 10:12 Nursing Referral for Wound Care DAILY Comment: Physician Instructions: Reason For Exam: Sacral wound 03/25/18 22:46 Consult [Physician Consult] Routine Comment: Consulting Provider: Fco Day Consulting Physician: Fco Day Reason for Consult: septic hip 03/25/18 23:30 Infectious Disease Consult Routine Comment: Consulting Provider: Ty Will Consulting Physician: Ty Will Reason for Consult: Large intracapsular hepatic abscess with air fluid levels 03/25/18 23:32 General Surgery Consult Routine Comment: Consulting Provider: Za Hsu Consulting Physician: Za Hsu Reason for Consult: Large intracapsular hepatic abscess with air fluid levels Physician Consult Routine Comment: Consulting Provider: David Polanco Consulting Physician: David Polanco Reason for Consult: Large intracapsular hepatic abscess with air fluid levels 03/26/18 12:20 Social Work Referral Routine Comment: hx IV drug abuse, med non-compliance\ Physician Instructions: Reason For Exam: hx IV drug abuse, med non-compliance Time Spent in preparation of Discharge (in minutes): 40 Diagnosis - Discharge Diagnosis (1) Hepatic abscess Status: Acute Priority: High (2) Hip osteomyelitis, left Status: Acute Priority: High (3) Septic joint Status: Acute Priority: High (4) Pelvic abscess Status: Acute Priority: High (5) Hepatitis C Status: Chronic Priority: High Hospital Course - Lab Results Lab Results: Micro Results 04/06/18 17:27 Other: Please Indicate Fungal Culture - Final Aline Ciferrii 04/06/18 17:27 Other: Please Indicate Mycobacterial Culture - Preliminary 04/06/18 17:27 Abscess - Other-Put In Comments Anaerobic Culture - Final NO ANAEROBES ISOLATED. 04/06/18 17:27 Other: Please Indicate Body Fluid Culture - Final Escherichia Coli Streptococcus Sangius I 03/25/18 20:11 Blood Blood Culture - Final NO GROWTH AFTER 5 DAYS 03/25/18 20:11 Blood Gram Stain - Final TEST NOT PERFORMED 03/25/18 19:44 Blood Blood Culture - Final NO GROWTH AFTER 5 DAYS 03/25/18 19:44 Blood Gram Stain - Final TEST NOT PERFORMED 03/28/18 10:52 Abdominal Fluid Gram Stain - Final 03/28/18 10:52 Abdominal Fluid Body Fluid Culture - Final Escherichia Coli 03/26/18 00:15 Naris MRSA Culture (Admit) - Final MRSA NOT DETECTED Most Recent Lab Values WBC 11.6 10^3/uL (4.5-11.0) H 04/19/18 06:20 RBC 3.99 10^6/uL (3.5-6.1) 04/19/18 06:20 Hgb 9.3 g/dL (14.0-18.0) L 04/19/18 06:20 Hct 31.0 % (42.0-52.0) L 04/19/18 06:20 MCV 77.7 fl (80.0-105.0) L 04/19/18 06:20 MCH 23.3 pg (25.0-35.0) L 04/19/18 06:20 MCHC 30.0 g/dl (31.0-37.0) L 04/19/18 06:20 RDW 23.2 % (11.5-14.5) H 04/19/18 06:20 Plt Count 478 10^3/uL (120.0-450.0) H 04/19/18 06:20 MPV 8.4 fl (7.0-11.0) 04/19/18 06:20 Gran % 46.1 % (50.0-68.0) L 04/07/18 06:45 Lymph % (Auto) 34.7 % (22.0-35.0) 04/07/18 06:45 Laurel % (Auto) 16.5 % (1.0-6.0) H 04/07/18 06:45 Eos % (Auto) 2.2 % (1.5-5.0) 04/07/18 06:45 Baso % (Auto) 0.5 % (0.0-3.0) 04/07/18 06:45 Gran # 2.93 (1.4-6.5) 04/07/18 06:45 Lymph # (Auto) 2.2 (1.2-3.4) 04/07/18 06:45 Laurel # (Auto) 1.1 (0.1-0.6) H 04/07/18 06:45 Eos # (Auto) 0.1 (0.0-0.7) 04/07/18 06:45 Baso # (Auto) 0.03 K/mm3 (0.0-2.0) 04/07/18 06:45 ESR 93 mm/hr (0.0-15.0) H 03/25/18 21:13 PT 14.2 SECONDS (9.4-12.5) H 03/28/18 06:30 INR 1.23 03/28/18 06:30 APTT 26.1 Seconds (25.1-36.5) 03/28/18 06:30 pO2 78 mm/Hg (30-55) H 03/25/18 19:44 VBG pH 7.47 (7.32-7.43) H 03/25/18 19:44 VBG pCO2 50.0 (40-60) 03/25/18 19:44 VBG HCO3 36.4 mmol/l (21-28) H 03/25/18 19:44 VBG Total CO2 37.9 mmol.L (22-28) H 03/25/18 19:44 VBG O2 Sat (Calc) 97.8 % (40-65) H 03/25/18 19:44 VBG Base Excess 10.9 mmol/L (0.0-2.0) H 03/25/18 19:44 VBG Potassium 4.0 mmol/L (3.6-5.2) 03/25/18 19:44 Sodium 135.0 mmol/L (132-148) 03/25/18 19:44 Chloride 96.0 mmol/L (98-107) L 03/25/18 19:44 Glucose 105 mg/dl (75-110) 03/25/18 19:44 Lactate 1.4 mmol/L (0.7-2.1) 03/25/18 19:44 FiO2 21.0 % 03/25/18 19:44 Sodium 139 mmol/L (132-148) 04/19/18 06:20 Potassium 4.3 mmol/L (3.6-5.0) 04/19/18 06:20 Chloride 101 mmol/L (98-107) 04/19/18 06:20 Carbon Dioxide 32 mmol/L (21-33) 04/19/18 06:20 Anion Gap 10 (10-20) 04/19/18 06:20 BUN 18 mg/dL (7-21) 04/19/18 06:20 Creatinine 0.6 mg/dl (0.8-1.5) L 04/19/18 06:20 Est GFR ( Amer) > 60 04/19/18 06:20 Est GFR (Non-Af Amer) > 60 04/19/18 06:20 POC Glucose (mg/dL) 78 mg/dL (65-110) 03/27/18 11:35 Random Glucose 99 mg/dL (70-110) 04/19/18 06:20 Lactic Acid 0.8 mmol/L (0.7-2.1) 03/26/18 01:55 Calcium 10.0 mg/dL (8.4-10.5) 04/19/18 06:20 Phosphorus 4.6 mg/dL (2.5-4.5) H 04/19/18 06:20 Magnesium 2.1 mg/dL (1.7-2.2) 04/19/18 06:20 Total Bilirubin 0.2 mg/dL (0.2-1.3) 04/19/18 06:20 AST 50 U/L (17-59) 04/19/18 06:20 ALT 39 U/L (7-56) 04/19/18 06:20 Alkaline Phosphatase 131 U/L (38-126) H 04/19/18 06:20 Troponin I < 0.01 ng/mL 03/26/18 07:30 C-Reactive Protein 70.40 mg/L (0.0-9.9) H 03/25/18 23:30 Total Protein 8.7 g/dL (5.8-8.3) H 04/19/18 06:20 Albumin 3.7 g/dL (3.0-4.8) 04/19/18 06:20 Globulin 5.0 gm/dL 04/19/18 06:20 Albumin/Globulin Ratio 0.7 (1.1-1.8) L 04/19/18 06:20 Procalcitonin 1.07 NG/ML (0.19-0.49) H 03/25/18 23:30 Venous Blood Potassium 4.0 mmol/L (3.6-5.2) 03/25/18 19:44 Urine Opiates Screen Positive (NEGATIVE) H 03/26/18 10:00 Urine Methadone Screen Positive (NEGATIVE) H 03/26/18 10:00 Ur Barbiturates Screen Negative (NEGATIVE) 03/26/18 10:00 Ur Phencyclidine Scrn Negative (NEGATIVE) 03/26/18 10:00 Ur Amphetamines Screen Negative (NEGATIVE) 03/26/18 10:00 U Benzodiazepines Scrn Negative (NEGATIVE) 03/26/18 10:00 U Oth Cocaine Metabols positive (NEGATIVE) 03/26/18 10:00 U Cannabinoids Screen Negative (NEGATIVE) 03/26/18 10:00 Alcohol, Quantitative < 10 mg/dL (0-10) 03/25/18 23:59 HIV 1&2 Antibody Screen Negative (NEGATIVE) 03/27/18 11:15 Blood Type A POSITIVE 03/26/18 12:00 Antibody Screen Negative 03/26/18 12:00 BBK History Checked Patient has bt 03/26/18 12:00 - Hospital Course Hospital Course: Upon Arrival Pt is a 47 yo male with PMH of poly-substance abuse, sciatica, Hep C, L hip septic joint s/p washout who presents to the ED with L hip pain. He reports pain in the L hip pain which has been present since his discharge on 03/01. He states that he was supposed to take abx upon d/c from the hospital but is unsure why he didn't take them, though they were given to him before d/c. He states that today his pain was a 10/10 and could no longer ambulate on his leg. Pt is agitated and is uncooperative with exam. Hospitalization Pt was found to have a liver abscess which was drained, a left hip abscess and a left groin abscess. Pt pain was controlled with oxycodone and morphine. IR drained the abscess. The cultures grew E. coli and Strep sangius. Pt was treated with Zosyn. Pt was found to grow Aline ciferrii and was treated with micafungin. Pt was switched to PO doxycycline. Discharge Advised to [facility] on Apr 22 2:30pm, with Dr Dawkins. Pt discharged on the following medications: Augmentin take 1 capsule by mouth twice a day, for 4 weeks Diflucan 200mg take 1 tablet daily for 2 weeks Oxycodone 15mg take every 12 hours as needed for pain Bacitracin Ointment, please apply to your wound every 4 hours Orthopedic surgery recommends follow up with [facility] or [facility] for further assessment and furthered management. - Date & Time of H&P Date of H&P: 04/19/18 Time of H&P: 07:00 Discharge Exam - Head Exam Head Exam: NORMAL INSPECTION - Eye Exam Eye Exam: EOMI - ENT Exam ENT Exam: Mucous Membranes Moist - Neck Exam Neck exam: Full Rom - Respiratory Exam Respiratory Exam: NORMAL BREATHING PATTERN. absent: Accessory Muscle Use, Respiratory Distress - Cardiovascular Exam Cardiovascular Exam: RRR, +S1, +S2. absent: Diastolic murmur, Systolic Murmur - GI/Abdominal Exam GI & Abdominal Exam: Normal Bowel Sounds, Soft, Tenderness, Unremarkable - Extremities Exam Extremities exam: pedal pulses present - Neurological Exam Neurological exam: Alert, Oriented x3 - Psychiatric Exam Psychiatric exam: Normal Affect, Normal Mood - Skin Skin Exam: Dry, Intact, Warm Discharge Plan - Discharge Medications Prescriptions: Amino Acids/Protein Hydrolys [Prostat 15 g packet] 30 gm PO BID #10 pkt Amoxicillin/Clavulanate [Augmentin 875 MG-125 MG] 1 tab PO BID #56 tab Bacitracin Ointment [Bacitracin] 1 gm TOP Q4H PRN #1 tube PRN Reason: Inflammation Fluconazole [Diflucan] 200 mg PO DAILY #14 tab oxyCODONE [oxyCODONE Immediate Release Tab] 15 mg PO Q12 #10 tab - Follow Up Plan Condition: STABLE Disposition: HOME/ ROUTINE Instructions: Osteomyelitis, Chronic Pain (DC), Wound Care (DC), Preventing Falls, Quitting Smoking, Influenza Virus Vaccine (Inactivated), Pneumococcal Polysaccharide Vaccine (23-Valent) Additional Instructions: 1. please follow up with the [facility] on Apr 22 2:30pm, with Dr Dawkins 2. please take your antibiotics as prescribed. You are being prescribed Augmentin take 1 capsule by mouth twice a day, for 4 weeks Diflucan 200mg take 1 tablet daily for 2 weeks Oxycodone 15mg take every 12 hours as needed for pain Bacitracin Ointment, please apply to your wound every 4 hours 3. Orthopedic surgery recommends you follow up with [facility] or [facility] for further assessment and furthered management 4. please avoid all further illicit substance use 5. If your symptoms return or worsen, please go to the nearest emergency department Referrals: [email or web address] [Primary Care Provider] - <Rachel Mata - Last Filed: 04/19/18 16:07> Provider - Provider Date of Admission: 03/25/18 22:42 Attending physician: Rachel Mata MD Primary care physician: [facility]ENOIT PRIMARY CARE PROVIDER Consults: 03/29/18 15:51 Nursing Referral for Wound Care Routine Comment: gravity drainage Physician Instructions: Reason For Exam: s/p drain to hepatic abcess 03/31/18 07:09 Consult [Physician Consult] Routine Comment: Consulting Provider: David Polanco Consulting Physician: David Polanco Reason for Consult: IR drain of L hip, ortho wants IR to do it 04/13/18 09:51 Consult [Physician Consult] Routine Comment: Consulting Provider: Fco Day Consulting Physician: Fco Day Reason for Consult: septic hip, not responsive to antibiotics Additional Comments: re-consult requested by ID 04/16/18 10:12 Nursing Referral for Wound Care DAILY Comment: Physician Instructions: Reason For Exam: Sacral wound 03/25/18 22:46 Consult [Physician Consult] Routine Comment: Consulting Provider: Fco Day Consulting Physician: Fco Day Reason for Consult: septic hip 03/25/18 23:30 Infectious Disease Consult Routine Comment: Consulting Provider: Ty Will Consulting Physician: Ty Will Reason for Consult: Large intracapsular hepatic abscess with air fluid levels 03/25/18 23:32 General Surgery Consult Routine Comment: Consulting Provider: Za Hsu Consulting Physician: Za Hsu Reason for Consult: Large intracapsular hepatic abscess with air fluid levels Physician Consult Routine Comment: Consulting Provider: David Polanco Consulting Physician: David Polanco Reason for Consult: Large intracapsular hepatic abscess with air fluid levels 03/26/18 12:20 Social Work Referral Routine Comment: hx IV drug abuse, med non-compliance\ Physician Instructions: Reason For Exam: hx IV drug abuse, med non-compliance Hospital Course - Lab Results Lab Results: Micro Results 04/06/18 17:27 Other: Please Indicate Fungal Culture - Final Aline Ciferrii 04/06/18 17:27 Other: Please Indicate Mycobacterial Culture - Preliminary 04/06/18 17:27 Abscess - Other-Put In Comments Anaerobic Culture - Final NO ANAEROBES ISOLATED. 04/06/18 17:27 Other: Please Indicate Body Fluid Culture - Final Escherichia Coli Streptococcus Sangius I 03/25/18 20:11 Blood Blood Culture - Final NO GROWTH AFTER 5 DAYS 03/25/18 20:11 Blood Gram Stain - Final TEST NOT PERFORMED 03/25/18 19:44 Blood Blood Culture - Final NO GROWTH AFTER 5 DAYS 03/25/18 19:44 Blood Gram Stain - Final TEST NOT PERFORMED 03/28/18 10:52 Abdominal Fluid Gram Stain - Final 03/28/18 10:52 Abdominal Fluid Body Fluid Culture - Final Escherichia Coli 03/26/18 00:15 Naris MRSA Culture (Admit) - Final MRSA NOT DETECTED Most Recent Lab Values WBC 11.6 10^3/uL (4.5-11.0) H 04/19/18 06:20 RBC 3.99 10^6/uL (3.5-6.1) 04/19/18 06:20 Hgb 9.3 g/dL (14.0-18.0) L 04/19/18 06:20 Hct 31.0 % (42.0-52.0) L 04/19/18 06:20 MCV 77.7 fl (80.0-105.0) L 04/19/18 06:20 MCH 23.3 pg (25.0-35.0) L 04/19/18 06:20 MCHC 30.0 g/dl (31.0-37.0) L 04/19/18 06:20 RDW 23.2 % (11.5-14.5) H 04/19/18 06:20 Plt Count 478 10^3/uL (120.0-450.0) H 04/19/18 06:20 MPV 8.4 fl (7.0-11.0) 04/19/18 06:20 Gran % 46.1 % (50.0-68.0) L 04/07/18 06:45 Lymph % (Auto) 34.7 % (22.0-35.0) 04/07/18 06:45 Laurel % (Auto) 16.5 % (1.0-6.0) H 04/07/18 06:45 Eos % (Auto) 2.2 % (1.5-5.0) 04/07/18 06:45 Baso % (Auto) 0.5 % (0.0-3.0) 04/07/18 06:45 Gran # 2.93 (1.4-6.5) 04/07/18 06:45 Lymph # (Auto) 2.2 (1.2-3.4) 04/07/18 06:45 Laurel # (Auto) 1.1 (0.1-0.6) H 04/07/18 06:45 Eos # (Auto) 0.1 (0.0-0.7) 04/07/18 06:45 Baso # (Auto) 0.03 K/mm3 (0.0-2.0) 04/07/18 06:45 ESR 93 mm/hr (0.0-15.0) H 03/25/18 21:13 PT 14.2 SECONDS (9.4-12.5) H 03/28/18 06:30 INR 1.23 03/28/18 06:30 APTT 26.1 Seconds (25.1-36.5) 03/28/18 06:30 pO2 78 mm/Hg (30-55) H 03/25/18 19:44 VBG pH 7.47 (7.32-7.43) H 03/25/18 19:44 VBG pCO2 50.0 (40-60) 03/25/18 19:44 VBG HCO3 36.4 mmol/l (21-28) H 03/25/18 19:44 VBG Total CO2 37.9 mmol.L (22-28) H 03/25/18 19:44 VBG O2 Sat (Calc) 97.8 % (40-65) H 03/25/18 19:44 VBG Base Excess 10.9 mmol/L (0.0-2.0) H 03/25/18 19:44 VBG Potassium 4.0 mmol/L (3.6-5.2) 03/25/18 19:44 Sodium 135.0 mmol/L (132-148) 03/25/18 19:44 Chloride 96.0 mmol/L (98-107) L 03/25/18 19:44 Glucose 105 mg/dl (75-110) 03/25/18 19:44 Lactate 1.4 mmol/L (0.7-2.1) 03/25/18 19:44 FiO2 21.0 % 03/25/18 19:44 Sodium 139 mmol/L (132-148) 04/19/18 06:20 Potassium 4.3 mmol/L (3.6-5.0) 04/19/18 06:20 Chloride 101 mmol/L (98-107) 04/19/18 06:20 Carbon Dioxide 32 mmol/L (21-33) 04/19/18 06:20 Anion Gap 10 (10-20) 04/19/18 06:20 BUN 18 mg/dL (7-21) 04/19/18 06:20 Creatinine 0.6 mg/dl (0.8-1.5) L 04/19/18 06:20 Est GFR ( Amer) > 60 04/19/18 06:20 Est GFR (Non-Af Amer) > 60 04/19/18 06:20 POC Glucose (mg/dL) 78 mg/dL (65-110) 03/27/18 11:35 Random Glucose 99 mg/dL (70-110) 04/19/18 06:20 Lactic Acid 0.8 mmol/L (0.7-2.1) 03/26/18 01:55 Calcium 10.0 mg/dL (8.4-10.5) 04/19/18 06:20 Phosphorus 4.6 mg/dL (2.5-4.5) H 04/19/18 06:20 Magnesium 2.1 mg/dL (1.7-2.2) 04/19/18 06:20 Total Bilirubin 0.2 mg/dL (0.2-1.3) 04/19/18 06:20 AST 50 U/L (17-59) 04/19/18 06:20 ALT 39 U/L (7-56) 04/19/18 06:20 Alkaline Phosphatase 131 U/L (38-126) H 04/19/18 06:20 Troponin I < 0.01 ng/mL 03/26/18 07:30 C-Reactive Protein 70.40 mg/L (0.0-9.9) H 03/25/18 23:30 Total Protein 8.7 g/dL (5.8-8.3) H 04/19/18 06:20 Albumin 3.7 g/dL (3.0-4.8) 04/19/18 06:20 Globulin 5.0 gm/dL 04/19/18 06:20 Albumin/Globulin Ratio 0.7 (1.1-1.8) L 04/19/18 06:20 Procalcitonin 1.07 NG/ML (0.19-0.49) H 03/25/18 23:30 Venous Blood Potassium 4.0 mmol/L (3.6-5.2) 03/25/18 19:44 Urine Opiates Screen Positive (NEGATIVE) H 03/26/18 10:00 Urine Methadone Screen Positive (NEGATIVE) H 03/26/18 10:00 Ur Barbiturates Screen Negative (NEGATIVE) 03/26/18 10:00 Ur Phencyclidine Scrn Negative (NEGATIVE) 03/26/18 10:00 Ur Amphetamines Screen Negative (NEGATIVE) 03/26/18 10:00 U Benzodiazepines Scrn Negative (NEGATIVE) 03/26/18 10:00 U Oth Cocaine Metabols positive (NEGATIVE) 03/26/18 10:00 U Cannabinoids Screen Negative (NEGATIVE) 03/26/18 10:00 Alcohol, Quantitative < 10 mg/dL (0-10) 03/25/18 23:59 HIV 1&2 Antibody Screen Negative (NEGATIVE) 03/27/18 11:15 Blood Type A POSITIVE 03/26/18 12:00 Antibody Screen Negative 03/26/18 12:00 BBK History Checked Patient has bt 03/26/18 12:00 Attending/Attestation - Attestation I have personally seen and examined this patient.: Yes I have fully participated in the care of the patient.: Yes I have reviewed all pertinent clinical information, including history, physical exam and plan: Yes Notes (Text): 04/19/18 16:04 Attending note; Patient seen and examined with resident. Still complaining of left hip pain on and off. Denies any fevers, chills. Denies any nausea, vomiting. Patient is a 47-year-old male with past medical history significant for polysubstance abuse, sciatica, hepatitis C, left hip septic joint status post washout that presented to the emergency room with left hip pain and abdominal discomfort. 1. Liver abscess. Status post liver abscess drainage and drain removal yesterday. Patient will be discharged with by mouth Diflucan and Augmentin. Case discussed with ID in detail. Medication delivered to the bedside. 2. Anemia. Chronic. H&H stable. hb is 9.3. No active bleeding noted. 3. History of active drug abuse; complete heroin cessation is strongly advised. 4. Pain Management with OxyContin. 5. Hepatitis C. secondary to drug abuse . HIV is negative .Patient to follow up outpatient for treatment. Patient will be refereed to [facility] for hepatitis c treatment. 6. Orthopedic evaluation appreciated. Patient is referred to tertiary level Center for chronic left hip osteomyelitis. Patient chooses to follow-up with [facility]. Patient is also advised to follow-up with [facility] if needed. Case discussed with counter caser in detail. Patient applied for Medicaid. Patient uses wheelchair for ambulation. Patient agreed to stop IV drug abuse and follow-up with orthopedics clinic at [facility]. Upon discharge patient will be referred to [facility] clinic. 04/19/18 16:06
== END 2018-04-19 16:55 | disposition home or self-care (01) | DRG 279 ==
LOC: ED 18:08 → ERH 22:42 → 2RNO 03-26 00:05 → 5RNO 03-31 23:36
PROVIDERS: ADMIT Internal Medicine; ATTEND Internal Medicine
PROC: BW201ZZ Computerized Tomography (CT Scan) of Abdomen using Low Osmolar Contrast (ICD-10-PCS; 2018-03-28)
PROC: 0W9G30Z Drainage of Peritoneal Cavity with Drainage Device, Percutaneous Approach (ICD-10-PCS; principal; 2018-03-28 09:00)
PROC: 0W2GX0Z Change Drainage Device in Peritoneal Cavity, External Approach (ICD-10-PCS; 2018-04-06)
DX: K75.0 Abscess of liver (principal); K65.1 Peritoneal abscess; J18.9 Pneumonia, unspecified organism; L89.152 Pressure ulcer of sacral region, stage 2; M00.9 Pyogenic arthritis, unspecified; R18.8 Other ascites; M86.652 Other chronic osteomyelitis, left thigh; B19.20 Unspecified viral hepatitis C without hepatic coma; E87.6 Hypokalemia; F14.90 Cocaine use, unspecified, uncomplicated; K56.41 Fecal impaction; L02.214 Cutaneous abscess of groin; F11.23 Opioid dependence with withdrawal; D50.9 Iron deficiency anemia, unspecified; E03.9 Hypothyroidism, unspecified; E78.5 Hyperlipidemia, unspecified; F10.10 Alcohol abuse, uncomplicated; F17.210 Nicotine dependence, cigarettes, uncomplicated; G89.29 Other chronic pain; K52.9 Noninfective gastroenteritis and colitis, unspecified; M54.30 Sciatica, unspecified side; R13.10 Dysphagia, unspecified; B95.62 Methicillin resistant Staphylococcus aureus infection as the cause of diseases classified elsewhere; Z86.14 Personal history of Methicillin resistant Staphylococcus aureus infection; Z53.20 Procedure and treatment not carried out because of patient's decision for unspecified reasons; Z91.14 Patient's other noncompliance with medication regimen; Z91.19 Patient's noncompliance with other medical treatment and regimen; Z87.09 Personal history of other diseases of the respiratory system